=== PATIENT | male | born 1950 | race Caucasian/White ===

== ENCOUNTER → 2022-03-30 10:28 | Outpatient (CLI) | payer MEDICARE, SELFPAY ==
--- NOTE | ~2022-03-30 | XR_ITS ---
XR hip LT 2V w AP pelvis 03/30/2022 11:05 Indication: Left hip pain Procedure: 3 views left hip Comparison: 06/15/2017 Findings: There is mild osteoarthritis of the left hip. No fracture, subluxation or dislocation. Pelv ic rings are intact. Sacral foramen are symmetric. There are surgical changes of the pelvis. There is atherosclerosis in the pelvis. Impression: 1: Mild osteoarthritis of the left hip. Reviewed, dictated and finalized at location B. Impression: 1: Mild osteoarthritis of the left hip.
== END ==
PROVIDERS: PCP Family Medicine; Visit Provider Family Medicine
DX: M16.12 Unilateral primary osteoarthritis, left hip (principal)
CPT/HCPCS: 73502

== ENCOUNTER → 2022-12-29 11:18 | Outpatient (CLI) | payer MEDICARE, SELFPAY ==
--- NOTE | ~2022-12-29 | XR_ITS ---
XR knee RT 3V 12/29/2022 11:42 Indication: Right knee pain Procedure: 3 views right knee Comparison: 06/20/2011 Findings: There is a vascular graft overlying the femur. There are curvilinear calcifications posteri or to the femur overlying the graft, possibly representing a focal aneurysm. There is mild-moderate t ricompartment osteoarthritis. Normal mineralization. There is anatomic alignment. No acute fracture o r traumatic malalignment. No significant joint effusion. Impression: 1: No acute bone or joint abnormality. 2: Mild-moderate tricompartment osteoarthritis. 3: Vascular graft present overlying the distal femur posteriorly with possible associated vascular an eurysm surrounding the graft. Reviewed, dictated and finalized at location A. OR SUPPORT ANALYST Impression: 1: No acute bone or joint abnormality. 2: Mild-moderate tricompartment osteoarthritis. 3: Vascular graft present overlying the distal femur posteriorly with possible associated vascular aneurysm surrounding the graft.
--- NOTE | ~2022-12-29 | XR_ITS ---
XR hip RT 2V w AP pelvis 12/29/2022 11:42 Indication: Right hip pain Procedure: 3 views right hip Comparison: 03/30/2022 Findings: There is mild bilateral symmetric osteoarthritis of the hips. Pelvic rings are intact. Sacr al foramen are symmetric. No fracture or traumatic malalignment. There are vascular calcifications in the pelvis and proximal thigh. Impression: 1: Mild osteoarthritis of the hips. Reviewed, dictated and finalized at location A. NEERING LEADER Impression: 1: Mild osteoarthritis of the hips.
== END ==
PROVIDERS: PCP Family Medicine; Visit Provider Family Medicine
DX: M16.11 Unilateral primary osteoarthritis, right hip (principal); M17.11 Unilateral primary osteoarthritis, right knee
CPT/HCPCS: 73502; 73562

== ENCOUNTER 2024-03-10 10:34 | Emergency (ER) | payer MEDICARE, SELFPAY ==
[2024-03-10 10:41] VITALS: BP 157/60; PULSE 78; RESP 16; TEMP 36.3; O2SAT 100
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
== END 2024-03-10 11:41 | disposition home or self-care (01) ==
PROVIDERS: Emergency Provider Nurse Practitioner; PCP Family Medicine
DX: L98.9 Disorder of the skin and subcutaneous tissue, unspecified (principal); Z87.891 Personal history of nicotine dependence; J44.9 Chronic obstructive pulmonary disease, unspecified; I25.10 Atherosclerotic heart disease of native coronary artery without angina pectoris; Z95.1 Presence of aortocoronary bypass graft; Z79.82 Long term (current) use of aspirin; Z79.01 Long term (current) use of anticoagulants
CPT/HCPCS: 99211; G0463

== ENCOUNTER 2024-04-25 14:49 | Emergency (ER) | payer MEDICARE, SELFPAY ==
--- NOTE | 2024-04-25 14:56 | ED.HEATRA ---
HPI - Head Injury General Chief complaint: Wound/Laceration Stated complaint: Head Injury Time Seen by Provider: 04/25/24 14:54 Source: patient Mode of arrival: ambulatory Limitations: no limitations History of Present Illness HPI Narrative: Gume is a 73-year-old male patient presenting to the clinic today with complaints of hitting the left forehead/scalp on a cabinet and this caused a laceration to the forehead. He takes Xarelto 20 mg and a baby aspirin daily. States that this happened 11:00 a.m. today and he is not been able to get the bleeding to stop. Tetanus shot is up-to-date per patient Related Data Home Medications Medication Instructions Recorded Confirmed aspirin 81 mg tablet,delayed 81 mg PO DAILY 10/17/19 03/10/24 release (Josselin Low Dose Aspirin) cholecalciferol (vitamin D3) 125 5,000 unit PO DAILY 10/17/19 03/10/24 mcg (5,000 unit) capsule mesalamine 1.2 gram tablet,delayed 2.4 gm PO DAILY 10/17/19 03/10/24 release (Lialda) metoprolol succinate 25 mg 25 mg PO DAILY 10/17/19 03/10/24 tablet,extended release 24 hr (Toprol XL) multivitamin 1 tablet PO DAILY 10/17/19 03/10/24 rivaroxaban 20 mg tablet (Xarelto) 20 mg PO DAILY 10/17/19 03/10/24 nitroglycerin 0.4 mg sublingual 0.4 mg sublingual DIRECTED 09/17/23 03/10/24 tablet Allergies Allergy/AdvReac Type Severity Reaction Status Date / Time Penicillins Allergy Mild Unknown Verified 03/27/24 11:20 amoxicillin Allergy Unknown Nausea Verified 03/27/24 11:20 ciprofloxacin Allergy Unknown nausea, Verified 03/27/24 11:20 upset stomach cortisone Allergy Unknown n/a Verified 03/27/24 11:20 escitalopram Allergy Unknown Asthma Verified 03/27/24 11:20 gemfibrozil Allergy Unknown myalgias Verified 03/27/24 11:20 lactase Allergy Unknown Nausea Verified 03/27/24 11:20 lactose Allergy Unknown Nausea Verified 03/27/24 11:20 sildenafil Allergy Unknown Shock Verified 03/27/24 11:20 Review of Systems Review of Systems: Pertinent positives per HPI. Patient denies any fever, chills, rash, headache, visual changes, dizziness, cough, runny nose, sore throat, shortness of breath, chest pain, palpitations, nausea, vomiting, diarrhea, constipation, abdominal pain, or any urinary issues. PMFSH Past Medical History Medical History Anxiety Bundle branch block, right COPD (chronic obstructive pulmonary disease) Coronary artery disease Fistula Proctitis Squamous cell carcinoma lung Ulcerative colitis Surgical History Surgical History H/O heart bypass surgery History of colon surgery History of lobectomy of lung S/P pneumonectomy Family History Family History Father Asthma Mother Acute myocardial infarction Son Carcinoma of colon Other Family history of cardiovascular disease Social History Social History Smoking status: Former smoker Smoking end date: 11/12/04 Alcohol intake: never Lack of Transportation: No Lack of Food: Never True Current Housing: I Have Housing Concerned About Future Housing: No Difficulty Paying Gas/Electric Bills: No Difficulty Paying for Meds: No Currently Unemployed: No Education: Bachelor's Degree Difficulty w/ Childcare or Family Care: No Comments At the time of my signature, I reviewed and agree with the nursing past medical, surgical, social, and family history. There is no relevant family history pertinent to the patient complaint. Exam Narrative: General: Well-developed, well nourished, in no apparent distress Head: Normocephalic, atraumatic. Cardio: Regular rate and rhythm, s1 and s2 normal, no murmur appreciated. Resp: Clear to auscultation bilaterally, no rhonchi, rales, wheezing or rubs. Integumentary: Plainedge, warm,
[2024-04-25 15:03] VITALS: BP 110/54; PULSE 80; RESP 16; TEMP 37.2; O2SAT 99
[2024-04-25 15:05] VITALS: BP 110/54; PULSE 80; RESP 16; TEMP 37.2; O2SAT 99
== END 2024-04-25 15:29 | disposition home or self-care (01) ==
PROVIDERS: Emergency Provider Nurse Practitioner Family; PCP Family Medicine
DX: S01.81XA Laceration without foreign body of other part of head, initial encounter (principal); W22.8XXA Striking against or struck by other objects, initial encounter; Z87.891 Personal history of nicotine dependence; J44.9 Chronic obstructive pulmonary disease, unspecified; I25.10 Atherosclerotic heart disease of native coronary artery without angina pectoris; Z85.118 Personal history of other malignant neoplasm of bronchus and lung; Z90.2 Acquired absence of lung [part of]
CPT/HCPCS: 99212; G0463

== ENCOUNTER 2024-06-05 09:08 | Outpatient (CLI) | payer MEDICARE, SELFPAY ==
--- NOTE | ~2024-06-05 | CT_ITS ---
EXAMINATION: CT abdomen pelvis wo/w con DATE: 06/05/2024 10:23 INDICATION: Microscopic hematuria TECHNIQUE: Computed tomography (CT) of the abdomen and pelvis was performed without and subsequently with 130 CC Omnipaque 350 intravenous contrast. Automated exposure control and iterative reconstructi on technique were employed. Exam dose: 961.57 mGy-cm total exam DLP. COMPARISON: None. FINDINGS: The lung bases are clear of consolidation. Small right pleural effusion. Status post sternotomy. Cardiomegaly. No pericardial effusion. There are multiple stones in the dependent aspect of the gallbladder. No apparent gallbladder wall th ickening or any pericholecystic fluid or fat stranding. No hepatic, splenic, pancreatic or adrenal space-occupying mass lesion is detected. No adrenal mass lesion. No renal mass lesion is evident. No filling defect of the renal collecting systems or urinary bladder .. No renal or ureteral calculus is noted. There are however some calcifications at the dependent aspect of the gallbladder, the largest measuring 5.5 x 8.5 mm. There is diffuse moderate thickening of the urinary bladder wall which may be due to underdistention or bladder outlet obstruction from moderate prostatomegaly. Prostate calcification. There is calcification of the abdominal aorta but no aneurysm. Calcifications at the origins of the c eliac and superior mesenteric and renal arteries. No intraperitoneal or retroperitoneal or pelvic mas s lesion or adenopathy or ascites. No bowel obstruction or intraperitoneal free air. Degenerative changes of the thoracic and particularly lumbar spine. No suspicious osteolytic or osteo blastic lesions are noted. IMPRESSION: Multiple multiple bladder calculi No renal or ureteral calculus or hydroureteronephrosis No renal space occupying mass lesion Cholelithiasis Cardiomegaly Small right pleural effusion Status post sternotomy Reviewed, dictated and finalized at Location A. Reviewed, dictated and finalized at location J.
[2024-06-05 10:00] LABS: Estimated Glomerular Filt Rate 59
== END 2024-06-05 09:09 | disposition home or self-care (01) ==
PROVIDERS: PCP Family Medicine; Visit Provider Urology
DX: R31.29 Other microscopic hematuria (principal); N21.0 Calculus in bladder; K80.20 Calculus of gallbladder without cholecystitis without obstruction; I51.7 Cardiomegaly; J90 Pleural effusion, not elsewhere classified; Z98.890 Other specified postprocedural states
CPT/HCPCS: 74178; Q9967

== ENCOUNTER 2024-10-21 10:40 | Outpatient (CLI) | payer MEDICARE, SELFPAY ==
--- NOTE | ~2024-10-21 | XR_ITS ---
Left foot Technique: AP, oblique, and lateral views were obtained. Clinical History: Pain Findings: No acute fracture or dislocation is seen. Osseous alignment is anatomic. Joint spaces are p reserved without erosive or degenerative change. Soft tissues are unremarkable. Impression: Unremarkable left foot radiographs. Reviewed, dictated and finalized at location . 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
== END 2024-10-21 10:41 | disposition home or self-care (01) ==
LOC: GOSHIMG 10:40
PROVIDERS: PCP Family Medicine; Visit Provider Student in an Organized Health Care Education/Training Program
DX: M79.672 Pain in left foot (principal)
CPT/HCPCS: 73630

== ENCOUNTER 2024-12-02 11:04 | Outpatient (CLI) | payer MEDICARE, SELFPAY ==
[2024-12-02 11:19] LABS: Basophils Absolute Auto 0.1 K/mm3 (0.0-0.1); Basophils Percent Auto 1.5 % (0.2-1.2); Eosinophils Absolute Auto 0.4 K/mm3 (0-0.3); Hematocrit 43.9 % (42.0-52.0); Hemoglobin 14.4 g/dL (14.0-18.0); Immature Granulocyte Absolute 0.02 K/mm3 (0.00-0.031); Immature Granulocyte Percent A 0.3 % (0-0.5); Lymphocytes Absolute Auto 1.07 K/mm3 (0.9-3.2); Lymphocytes Percent Auto 17.5 % (18.3-44.2); Mean Corpuscular HGB Conc 32.8 g/dl (32-36); Mean Corpuscular Hemoglobin 31.2 pg (26-34); Mean Corpuscular Volume 95.2 fl (80-100); Mean Platelet Volume 11.7 fl (7.4-10.4); Monocytes Absolute Auto 0.8 K/mm3 (0.1-0.6); Monocytes Percent Auto 12.5 % (2.6-8.5); Neutrophils Absolute Auto 3.7 K/mm3 (1.3-6.7); Neutrophils Percent Auto 61.2 % (45.5-73.1); Platelet Count Result 152 k/mm3 (150-375); Red Blood Count 4.61 M/mm3 (4.6-6.20); Red Cell Distribution Width 14.3 % (11.5-14.5); White Blood Count 6.1 K/mm3 (4.5-10.0)
[2024-12-02 13:07] LABS: Alanine Aminotransferase 19 U/L (6-50); Albumin Level 4.3 g/dL (3.5-5.1); Alkaline Phosphatase 72 U/L (38-126); Anion Gap 8 mmol/L (4-12); Aspartate Amino Transferase 29 U/L (17-59); Bilirubin,Total 0.7 mg/dL (0.2-1.3); Blood Urea Nitrogen 16 mg/dL (9-20); Calcium 9.6 mg/dL (8.4-10.2); Carbon Dioxide 28 mmol/L (22-30); Chloride 104 mmol/L (98-107); Estimated Glomerular Filt Rate > 60; Glucose 106 mg/dL (65-110); Potassium 4.5 mmol/L (3.4-5.0); Sodium 140 mmol/L (137-145)
[2024-12-02 13:50] LABS: Prostate Specific Antigen 30.4 ng/mL (< OR = 4.0)
--- OUTSIDE RECORDS SUMMARY | 2024-12-04 17:40 | XMS_ITS | Encounter Summary ---
Author Organization [facility] IOANA Manzanares [facility] Address [address] [place] [address] Care Team Providers Care Gate Technician Name Role Phone Maykel Gramajo MD Primary Care Provider [phone]- [phone] Reason for Referral * Radiation Therapy (Routine) - Open Specialty Diagnoses / Procedures Referred By Contac t Referred To Contact Hematology and Oncology Diagnoses Prostate cancer (CMS/HCC) Procedures MD OFFICE/OUTPATIENT ESTABLISHED MOD MDM 30 MIN MD OFFICE/OUTPATIENT NEW MODERATE MDM 45 MINUTES Sandeep Zafar MD [address] [place] [address] Phone: tel: fax: [facility] - [place] [address] [place] [address] [address] [place] [address] Phone: tel: fax: Referral ID Status Reason Start Date Expiration Date V isits Requested Visits Authorized [id number] Open STL CTS 12/02/2024 12/02/2025 1 1 OLL SECRETARY * PET Scan (Routine) - Closed Specialty Diagnoses / Procedures Referred By Contac t Referred To Contact Diagnoses Prostate cancer (CMS/HCC) Procedures PET TUMOR GA68 ILLUCIX PSMA IMG W CT SKB MDTH CHG PET IMAGING CT ATTENUATION SKULL BASE MID-THIGH HCHG GALLIUM GA-68 GOZETOTIDE DX ILLUCCIX 1 MCI MD GALLIUM ILLUCCIX 1 MILLICURE Khai Walsh MD [address] [facility] [address] [place] [address] Phone: tel: fax: [facility] [phone] Referral ID Status Reason Start Date Expiration Date V isits Requested Visits Authorized [id number] Closed STL CTS 12/02/2024 01/02/2026 1 1 OLL SECRETARY Reason for Visit * Reason Comments Establish Care Cancer Encounter Details Date Type Department Care Team (Late st Contact Info) Description 12/02/2024 10:30 AM PAYROLL SECRETARY Office Visit [facility] [address] [facility] [address] [place] [address] Khai Walsh MD [address] [place] [address] Prostate cancer (CMS/HCC) (Primary Dx) Social History Tobacco Use Types Packs/Day Years Used Date Smoking Tobacco: Former Cigarettes 2 35 Q uit: 12/02/2004 Smokeless Tobacco: Never Alcohol Use Standard Drinks/Week Comments Never 0 (1 standard drink = 0.6 oz pur e alcohol) Sex and Gender Information Value Date Recorded Sex Assigned at Not on file Legal Sex Male 1:21 PM PAYROLL SECRETARY Gender Identity Not on file Sexual Orientation Not on file documented as of this encounter Last Filed Vital Signs Vital Sign Reading Time Taken Comments Blood Pressure 134/73 12/02/2024 10:06 AM PAYROLL SECRETARY Pulse 68 12/02/2024 10:06 AM PAYROLL SECRETARY Temperature 36.2 ??C (97.1 ??F) 12/02/2024 10:[address] Respiratory Rate 16 12/02/2024 10:06 AM PAYROLL SECRETARY Oxygen Saturation 97% 12/02/2024 10:06 AM PAYROLL SECRETARY Inhaled Oxygen Concentration - - Weight 79.8 kg (176 lb) 12/02/2024 10:06 AM PAYROLL SECRETARY Height 172.7 cm (5' 8 ) 12/02/2024 10:06 AM PAYROLL SECRETARY Body Mass Index 26.76 12/02/2024 10:06 AM PAYROLL SECRETARY documented in this encounter Progress Notes * Khai Walsh MD - 12/02/2024 12:20 PM CST Hematology-oncology consult Note Requesting Physician Maykel Gramajo MD Primary Care Physician Maykel Gramajo MD Problem list There is no problem list on file for this patient. Previous TREATMENT ? Measurable Disease ? Reason for Visit Gume Roberson is a 74 y.o. male who was referred for consultation for prostate cancer. 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 Patient also has a history of coronary artery disease status post coronary artery bypass grafting in 2004. He noticed hematuria and was seen by the urologist. His original PSA was found to be 9 and prostate biopsy was performed on October 20, 2024 that 9 of 15 cores with Raul score 3+4 equal 7 adenocarcinoma. MRI pelvis showed no evidence of lymphadenopathy. He has been followed by Dr. Barnes. He denies any bone pain. Denies any weight loss. No other new complaints. Past Medical History Past Medical History: Diagnosis Date Diverticulosis of colon Heart disease History of blood clots Hypertension Malignant neoplasm Proctitis Stenosis, spinal, lumbar Surgical History Past Surgical History: Procedure Laterality Date HX COLONOSCOPY 10/16/2024 HX COLONOSCOPY [place] 2006 HX HEART SURGERY bypass, clear blockage [facility] 2004 HX LOBECTOMY cancer [place] 2023 Medications Current Outpatient Medications Medication Sig Dispense Refill mesalamine (LIALDA) 1.2 gram Tablet, Delayed Release (E.C.) Take 3.6 Grams by mouth daily. metoprolol succinate (TOPROL XL) 25 mg Extended Release 24 hour tablet Take 25 mg by mouth daily. Xarelto 10 mg Tablet Take 10 mg by mouth daily. ALPRAZolam (XANAX) 0.25 mg tablet Take 0.25 mg by mouth nightly as needed for Anxiety. cholecalciferol, vitamin D3, 5,000 unit Take 400 Units by mouth daily. fenofibrate (LOFIBRA) 160 mg Tablet Take 160 mg by mouth daily. pregabalin (LYRICA) 100 mg Capsule Take 100 mg by mouth daily at bedtime. simvastatin (ZOCOR) 20 mg tablet Take 20 mg by mouth daily with supper. multivitamin (DAILY-WILLIAM) tablet Take 1 Tablet by mouth daily. aspirin (ECOTRIN EC) 81 mg Tablet, Delayed Release (E.C.) Take 81 mg by mouth daily. No current facility-administered medications for this visit. Allergies Allergies Allergen Reactions Lactose Nausea and Vomiting and Other (See Comments) Upset stomach Immunizations: There is no immunization history on file for this patient. Family History Family History Problem Relation Name Age of Onset Prostate Cancer Father Heart Disease Father Pancreatic Cancer Mother Heart Disease Mother No Known Problems Sister No Known Problems Sister Colon Cancer Child 48 No Known Problems Child 46 No Known Problems Child 42 Social History Social History Tobacco Use Smoking status: Former Current packs/day: 0.00 Average packs/day: 2.0 packs/day for 35.0 years (70.0 ttl pk-yrs) Types: Cigarettes Quit date: 12/02/2004 Years since quittin.0 Smokeless tobacco: Never Substance Use Topics Alcohol use: Never Review of Systems Constitutional: Patient did not mention fever; no night sweats; no anorexia; no weight loss; no fatique NEENT: Patient did not mention headache; no change in vision; no change in hearing; no sore throat;no dysphagia Respiratory: Patient did not mention shortness of breath; no pleuritic chest pain; no cough; no hemoptysis Cardiac: Patient did not mention cardiac-like chest pain; no palpitations; no orthopnea; no PND; noDOE GI: Patient did not mention abdominal pain; no nausea; no vomiting; no diarrhea; no hematochezia; no melena : Patient did not mention dysuria; no frequency; no hesitancy; no hematuria NURSERY SUPERVISOR: Musculosketetal: Patient did not mention bone pain; no arthralgia; no joint swelling; no myalgia; Skin: Patient did not mention pruritis; no rash; no petechiae; no ecchymoses Endocrine: Patient did not mention polydipsia; no polyuria; no unusual weight gain Neuro: Patient did not mention headache; no change in vision; no sensory changes; no muscle weakness; no confusion; no seizures Psych: Patient did not mention anxiety; no depression; Physical Exam Vitals: As per nursing note Constitutional: Well developed, well nourished, no acute distress, non-toxic appearance Teeth and gum. No signs of infection or swelling. Eyes: PERRL, conjunctiva normal HEENT: Atraumatic, external ears normal, nose normal, oropharynx moist, no pharyngeal exudates. no sinus tenderness Neck- normal range of motion, no tenderness, supple Respiratory: No respiratory distress, normal breath sounds, no rales, no wheezing Cardiovascular: Normal rate, normal rhythm, no murmurs, no gallops, no rubs GI: Soft, nondistended, normal bowel sounds, nontender, no splenomegaly, no hepatomegaly, no mass, no rebound, no guarding : No costovertebral angle tenderness Musculoskeletal: No edema, no tenderness, no deformities. Back- no tenderness Integument: Well hydrated, no rash, Digits and nails inspection normal Lymphatic: No lymphadenopathy noted Neurologic: Alert & oriented x 3, CN 2-12 normal, normal motor function, normal sensory function, no focal deficits noted Psychiatric: Speech and behavior appropriate ? labs No results found for this or any previous visit (from the past 24 hours). Pathology ? Imaging & Other Studies Performance Status? Assessment / Plan: ? Adenocarcinoma of prostate. Unfavorable intermediate risk group. Grade 2 with presenting PSA of 9. Follow-up patient is a pleasant 74-year-old male with a stage I lung cancer status post right middle lobe lobectomy and right upper lobe wedge resection on March 14, 2024. He also has history of coronary artery disease status post coronary artery bypass grafting in 2004. Patient developed hematuria and found to have a PSA of 9. He underwent prostate biopsy on October 20, 2024 that showed 9 of 15 cores with Raul score 3+7 equal 7 adenocarcinoma. He was seen by Dr. Barnes. Treatment options were discussed and patient decided to have radiation therapy treatment. I will order PET PSMA a s well as labs including CBC, CMP, PSA and total and free testosterone level. I would also recommend androgen deprivation therapy for 6 months duration with radiation therapy treatment. I would suggest Lupron injection on a monthly basis along with Casodex concurrent with radiation therapy. I will see him back in 2 weeks after radiation oncology consultation and the PET scan. I have answered all the questions to patient satisfaction. T1 cN0 M0 stage IA squamous cell carcinoma of the lung status post right middle lobe lobectomy and right upper lobe wedge on March 14, 2024. He will continue to follow-up with Dr. Jeremy Stoll. Thank you very much for allowing me to participate in Gume Roberson's evaluation and management. Please feel free to contact if I can be of any further assistance in your patient???s care requiring hematology or oncology evaluation. Sincerely, ? ? Khai Walsh M.D. cell TOBACCO COUNSELING He is not a tobacco/nicotine user. Khai Walsh MD ,12/02/2024 12:22 PM ? Total time spent 60 minutes, two third of the total time spent counseling patient [id number]. CC:?Maykel Gramajo MD OLL SECRETARY documented in this encounter Plan of Treatment Upcoming Encounters Date Type Department Care Team (Late st Contact Info) Description 12/23/2024 1:00 PM PAYROLL SECRETARY Office Visit [facility] H[facility] [address] [facility] [address] [place] [address] Khai Walsh MD [address] [facility] [facility] [address] [place] [address] Scheduled Orders Name Type Priority Associated Diagnoses Orde r Schedule PET TUMOR GA68 ILLUCIX PSMA IMG W CT SKB MDTH Imaging Routine Prostate cancer (CMS/HCC) 1 Occurrences starting 12/02/2024 until 12/02/2025 CBC WITH DIFFERENTIAL Lab Stat Prostate cancer (CMS/HCC) Expected: 12/02/2024, Expires: 12/02/2025 COMPREHENSIVE METABOLIC PANEL Lab Stat Prostate cancer (CMS/HCC) Expected: 12/02/2024, Expires: 12/02/2025 PSA Lab Routine Prostate cancer (CMS/HCC) Expected: 12/02/2024, Expires: 12/02/2025 TESTOSTERONE FREE AND TOTAL Lab Routine Prostate cancer (CMS/HCC) Expected: 12/02/2024, Expires: 12/02/2025 Scheduled Referrals Name Type Priority Associated Diagnoses Orde r Schedule AMB REFERRAL TO RADIATION ONCOLOGY Outpatient Referral Routine Prostate cancer (CMS/HCC) Ordered: 12/02/2024 documented as of this encounter Visit Diagnoses Diagnosis Prostate cancer (CMS/HCC)- Primary Malignant neoplasm of prostate documented in this encounter Care Teams Gate Technician Relationship Specialty Start Date End Date Maykel Gramajo MD [address] [address] PCP - General Family Practice 12/02/24 documented as of this encounter
--- OUTSIDE RECORDS SUMMARY | 2024-12-04 17:40 | XMS_ITS | Referral Summary ---
Author Organization [facility] [email or web address] Address [address] [place] [address] Care Team Providers Care Dampener Operator Name Role Phone Maykel Gramajo MD Primary Care Provider [phone]- [phone] Source Comments [email or web address],non-owned Affiliates and Associated Physician Practices is amultiple site organization consisting of ambulatory clinics and hospital sitesin [place], [place], [place] and [place]. This disclosure is being madepursuant to the Care Everywhere program and may not contain all information available regarding this patient. Last updated 18.[email or web address] Allergies Active Allergy Reactions Criticality Noted Date Comments Lactose GI Discomfort Low 03/25/2015 Upset stomach Medications * Be aware that medications may not be up to date on this document. Alwaysverify current medications with the patient. Medication Sig Dispensed Refills Start Date End Date Status PROAIR HFA 108 (90 Base) MCG/ACT inhaler INHALE 2 PUFFS BY MOUTH EVERY 4 HOURS NEEDED FOR SHORTNESS OF BREATH OR WHEEZING 11/25/2019 Active ALPRAZolam (XANAX) 0.25 MG tablet TAKE 1 T PO TID NEEDED FOR ANXIETY 06/28/2020 Active fenofibrate (LOFIBRA) 160 MG tablet 06/20/2020 Active mesalamine EC (LIALDA) 1.2 g tablet 08/01/2020 Act jeff metoprolol succinate XL 24hr (TOPROL XL) 25 MG tablet 06/21/2020 Active pregabalin (LYRICA) 100 MG capsule 07/12/2020 Active XARELTO 20 MG tablet 06/27/2020 Acti ve simvastatin (ZOCOR) 20 MG tablet 06/20/2020 Active triamcinolone acetonide (KENALOG) 0.1 % cream ESTEVAN EXT AA BID 06/21/2020 Active aspirin EC (ECOTRIN) 81 MG tablet Take 81 mg by mouth once daily Active cephalexin (KEFLEX) 500 MG capsule TAKE 1 CAPSULE BY MOUTH EVERY 12 HOURS FOR 7 DAYS 03/29/2021 Active predniSONE (DELTASONE) 10 MG tablet 04/20/2021 Active metoprolol succinate XL 24hr (TOPROL XL) 25 MG tablet TAKE 1 TABLET BY MOUTH DAILY 06/09/2021 Active Active Problems Problem Noted Date Diagnosed Date Claudication 05/25/2020 Overview (01/24/2021): Added automatically from request for surgery [id number] Chronic rhinitis 08/21/2019 History of epistaxis 08/21/2019 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 Unfortunately, he had an effective distal endoleak, and his stenting was extended into his popliteal artery on 12/31/19. 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 - S/p 06/11 right SFA angiogram; failed recanalization - Continue asa - Restart xarelto tomorrow - Flat x 4 hours post op then Up as tolerated - ADAT - Admit overnight /2 no ride - Plan for left leg bypass at some point in the future Coronary artery disease invo lving [place] coronary artery of [place] heart without angina pectoris 03/28/2018 Overview (01/24/2021): Last Assessment & Plan: No symptoms of myocardial ischemia, albeit with limited physical exertion because of his peripheral vascular disease. Continue aspirin and metoprolol. Cardiac catheterization on 02/16/2017 was favorable after a false-positive surveillance myocardial perfusion study. Based on this would not plan to do surveillance testing, but if he were to be facing any major vascular or other surgery or experiencing any cardiac symptoms would evaluate. Hyperlipidemia 03/28/2018 Overview (01/24/2021): Last Assessment & Plan: He is on chronic lipid-lowering therapy. No recent testing in the setting of the COVID -19 pandemic. 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 Chronic ulcerative pancolitis 04/20/2011 Social History Tobacco Use Types Packs/Day Years Used Date Smoking Tobacco: Former Cigarettes Q uit: 2004 Smokeless Tobacco: Never Alcohol Use Standard Drinks/Week Comments Not Currently 0 (1 standard drink = 0.6 oz pur e alcohol) Sex and Gender Information Value Date Recorded Sex Assigned at Not on file Gender Identity Not on file Sexual Orientation Not on file Last Filed Vital Signs Vital Sign Reading Time Taken Comments Blood Pressure 139/75 05/18/2021 3:03 PM CDT Pulse 74 05/18/2021 3:03 PM CDT Temperature 36.5 ??C (97.7 ??F) 05/18/2021 2:48 PM CD T Respiratory Rate 18 05/18/2021 3:03 PM CDT Oxygen Saturation 99% 05/18/2021 3:03 PM CDT Inhaled Oxygen Concentration - - Weight 88.5 kg (195 lb) 05/12/2021 2:14 PM CDT Height 175.3 cm (5' 9 ) 05/12/2021 2:14 PM CDT Body Mass Index 28.8 05/12/2021 2:14 PM CDT Functional Status Functional Status Response Date of Assess ment Is person deaf or have serious hearing difficult y? No 05/18/2021 Is person blind or have serious difficulty seein g? No 05/18/2021 Does person have serious dif ficulty walking/climbing stairs? No 05/18/2021 Does person have difficulty dressing/bathing? No 05/18/2021 Does person have difficulty doing errands alone? No 05/18/2021 Cognitive Status Response Date of Assessm ent Does person have difficulty concentrating/remembering/making decisions? No 05/18/2021 Plan of Treatment Not on file Medical Devices Implanted Type Area Diet Aid Device Identifier Shelf Expiration Date Model / Serial / Lot Lens Iol 0 D +22.5 Ovidio Mod L Acrsf Iq - [id number] Implanted:Qty: 1 on 02/23/2021 by Hernan Hansen MD at [facility] Right: [employer] 06/21/2023 [id number] / [id number] / Lens Iol 0 D +28.0 Ovidio Mod L Acrsf Iq - [id number] Implanted:Qty: 1 on 05/18/2021 by Hernan Hansen MD at [facility] Left: [employer] 11/22/2023 [id number] / [id number] / Care Teams Dampener Operator Relationship Specialty Start Date End Date Maykel Gramajo MD [address] [place] [address], [place] [id number] PCP - General 07/28/20
--- OUTSIDE RECORDS SUMMARY | 2024-12-04 17:40 | XMS_ITS | Clinical Summary ---
Author Organization [facility] Address [address] [place] [address] Care Team Providers Care Vp Organizational Development Name Role Phone Maykel Gramajo MD Primary Care Provider [phone]- [phone] Source Comments [facility],non-owned Affiliates and Associated Physician Practices is amultiple site organization consisting of ambulatory clinics and hospital sitesin [place], [place], [place] and [place]. This disclosure is being madepursuant to the Care Everywhere program and may not contain all information available regarding this patient. 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 Overview (01/24/2021): Added automatically from request for surgery [id number] Added automatically from request for surgery [id number] Last Assessment & Plan: - S/p status post self-expanding??covered stent ([place] Viabahn??9 x 150 mm) placement to exclude [...] the future Coronary artery disease invo lving tel[place] coronary artery of [place] heart without angina pectoris 03/28/2018 Overview (01/24/2021): [...] film insufficiency 06/27/2013 Chronic ulcerative pancolitis 04/20/2011 Family History Medical History Relation Name Comments Glaucoma Neg Hx Macular Degeneration Neg Hx Social History Tobacco Use Types Packs/Day Years [...] Mass Index 28.8 05/12/2021 2:14 PM CDT Plan of Treatment Health Maintenance Due Date Last Done Comments COLOGUARD (AGES 45-75) - COL ON CA SCREENING 1950 COLON MONITORING 1950 COLONOSCOPY - COLON CA SCREENING 1950 CT COLONOGRAPHY - COLON CA SCREENING 1950 Colorectal Cancer Screening 1950 FIT - COLON CA SCREENING 1950 FLEX SIG - COLON CA SCREENING 1950 MEDICARE AWV ? 12 MONTHS 1950 HEPATITIS C SCREENING 05/08/1968 DTAP/TDAP/TD VACCINES (1 - Tdap) 1969 PNEUMOCOCCAL VACCINE 50+ (1 of 1 - PCV) 2000 ZOSTER VACCINE (1 of 2) 2000 AAA SCREENING 2015 COVID-19 VACCINE (1 - 2023-2 5 season) 2024 INFLUENZA VACCINE (#1) 2024 9, 08/16/2018 DEPRESSION SCREENING 11/12/2024 Respiratory Syncytial Virus (RSV) Vaccine Pt: or over 60 yrs (1 - 1-dose 75+ series) 2025 HEPATITIS B VACCINE Aged Out No longe r eligible based on patient's age to complete this topic HIB VACCINE Aged Out No longer eligi ble based on patient's age to complete this topic HPV VACCINE Aged Out No longer eligi ble based on patient's age to complete this topic MENINGOCOCCAL (Group B) VACCINE Aged Out No longer eligible b ased on patient's age to complete this topic MENINGOCOCCAL VACCINE Aged Out No pablo shirin eligible based on patient's age to complete this topic Medical Devices Implanted Type Area Music Department Chair Device Identifier Shelf Expiration Date Model / Serial / Lot Lens Iol 0 D +22.5 Ovidio Mod L Acrsf Iq - [id number] Implanted:Qty: 1 on 02/23/2021 by Hernan Hansen MD at [facility] Right: [employer] 06/21/2023 [id number] / [id number] / Lens Iol 0 D +28.0 Ovidio Mod L Acrsf Iq - [id number] Implanted:Qty: 1 on 05/18/2021 by Hernan Hansen MD at [facility] Left: [employer] 11/22/2023 [id number] / [id number] / Care Teams Vp Organizational Development Relationship Specialty Start Date End Date Maykel Gramajo MD [facility] [place] [address] PCP - General 07/28/20
--- OUTSIDE RECORDS SUMMARY | 2024-12-04 17:40 | XMS_ITS | Clinical Summary ---
Author Organization [facility] Uriel Mar Address [address] [place] [address] Care Team Providers Care Certified Personal Trainer Name Role Phone Maykel Gramajo MD Primary Care Provider [phone]- [phone] Allergies Active Allergy Reactions Criticality Noted Date Comments Lactose Nausea and Vomiting, Other (See Comments) Low 03/25/2015 Upset stomach Medications aspirin (ECOTRIN EC) 81 mg Tablet, Delayed Release (E.C.) Take 81 mg by mouth daily. Active mesalamine (LIALDA) 1.2 gram Tablet, Delayed Release (E.C.) Take 3.6 Grams by mouth daily. 11/24/2024 Active metoprolol succinate (TOPROL XL) 25 mg Extended Release 24 hour tablet Take 25 mg by mouth daily. 09/01/2024 Active Xarelto 10 mg Tablet Take 10 mg by mouth daily. 07/21/2024 Active ALPRAZolam (XANAX) 0.25 mg tablet Take 0.25 mg by mouth nightly as needed for Anxiety. Active cholecalciferol , vitamin D3, 5,000 unit Take 400 Units by mouth daily. Active fenofibrate (LOFIBRA) 160 mg Tablet Take 160 mg by mouth daily. Active pregabalin (LYRICA) 100 mg Capsule Take 100 mg by mouth daily at bedtime. Active simvastatin (ZOCOR) 20 mg tablet Take 20 mg by mouth daily with supper. Active multivitamin (DAILY-WILLIAM) tablet Take 1 Tablet by mouth daily. Active Active Problems No known active problems Encounters Date Type Department Care Team Description 12/03/2024 Orders Only [facility] - [address] [place] [phone] Khai Walsh MD 12/02/2024 10:30 AM COMMERCIAL PEST CONTROL REPRESENTATIVE Office Visit [facility] [address] [place] [address] Khai Walsh MD Prostate cancer (CMS/HCC) (Primary Dx) from Last 3 Months Family History Medical History Relation Name Comments Colon Cancer Child 1 48 No Known Problems Child 2 46 No Known Problems Child 3 42 Heart Disease Father Prostate Cancer Father Heart Disease Mother Pancreatic Cancer Mother No Known Problems Sister 1 No Known Problems Sister 2 Relation Name Status Comments Child 1 48 Alive Child 2 46 Alive Child 3 42 Alive Father Mother Sister 1 Alive Sister 2 Alive Social History Tobacco Use Types Packs/Day Years Used Date Smoking Tobacco: Former Cigarettes 2 35 Q uit: 12/02/2004 Smokeless Tobacco: Never Alcohol Use Standard Drinks/Week Comments Never 0 (1 standard drink = 0.6 oz pur e alcohol) Sex and Gender Information Value Date Recorded Sex Assigned at Not on file Legal Sex Male 1:21 PM COMMERCIAL PEST CONTROL REPRESENTATIVE Gender Identity Not on file Sexual Orientation Not on file Last Filed Vital Signs Vital Sign Reading Time Taken Comments Blood Pressure 134/73 12/02/2024 10:06 AM COMMERCIAL PEST CONTROL REPRESENTATIVE Pulse 68 12/02/2024 10:06 AM COMMERCIAL PEST CONTROL REPRESENTATIVE Temperature 36.2 ??C (97.1 ??F) 12/02/2024 10:[address] Respiratory Rate 16 12/02/2024 10:06 AM COMMERCIAL PEST CONTROL REPRESENTATIVE Oxygen Saturation 97% 12/02/2024 10:06 AM COMMERCIAL PEST CONTROL REPRESENTATIVE Inhaled Oxygen Concentration - - Weight 79.8 kg (176 lb) 12/02/2024 10:06 AM COMMERCIAL PEST CONTROL REPRESENTATIVE Height 172.7 cm (5' 8 ) 12/02/2024 10:06 AM COMMERCIAL PEST CONTROL REPRESENTATIVE Body Mass Index 26.76 12/02/2024 10:06 AM COMMERCIAL PEST CONTROL REPRESENTATIVE Plan of Treatment Upcoming Encounters Date Type Department Care Team (Late st Contact Info) Description 12/23/2024 1:00 PM COMMERCIAL PEST CONTROL REPRESENTATIVE Office Visit [facility] [address] [place] [phone] Khai Walsh MD [address] [facility] [address] [place] [address] Health Maintenance Due Date Last Done Comments Traditional Medicare (ACO) A nnual Wellness Visit 1969 FIT-DNA Q 3 years 1995 FIT/FOBT Q 1 year 1995 Flex Sig/CT Colonography Q 5 years 1995 PNEUMOCOCCAL VACCINE 65+ YEA RS (1 of 1 - PCV) 2000 ZOSTER VACCINE (1 of 2) 2000 Abdominal Aortic Aneurysm (A AA) Screening 2015 INFLUENZA VACCINE (#1) 2024 3, 08/17/2022, 08/16/2018 RSV VACCINE (60+ or ) (1 - 1-dose 75+ series) 2025 DTAP/TDAP/TD VACCINES (2 - T d or Tdap) 03/26/2033 03/26/2023 COLORECTAL SCREENING 10/16/2034 10/16/2024, 10/16/20 24 Colorectal Cancer Screening 10/16/2034 Procedures Procedure Name Priority Date/Time Associated Diagnosis Comments COMPREHENSIVE METABOLIC PANEL Routine 12/02/2024 3:30 PM COMMERCIAL PEST CONTROL REPRESENTATIVE from Last 3 Months Results * COMPREHENSIVE METABOLIC PANEL (12/02/2024 3:30 PM COMMERCIAL PEST CONTROL REPRESENTATIVE) Blood Khai Walsh MD CHEMISTRY ORDERABLES Final Resu lt from Last 3 Months Insurance MEDICARE PART A AND B [facility] [id number] Care Teams Certified Personal Trainer Relationship Specialty Start Date End Date Maykel Gramajo MD [address] [place] [phone] PCP - General Family Practice 12/02/24
--- OUTSIDE RECORDS SUMMARY | 2024-12-04 17:40 | XMS_ITS | Continuity of Care Document ---
Author Organization [facility] Address [address] [place] [address] Phone Care Team Providers Care Edger Feeder Name Role Phone Denis Cash Unavailable Unavailable Procedures Procedure Date Eye Exam & Treatment Refraction Advance Directives Directive Yes / No Effective Date File Name No Information Encounters Encounter Description Practice Location Reason(s) For Visit Diagnoses Date Provider Providers Copied on Encounter Merged with [facility], [address], [place], [place], [id number], [place] tel:[phone] [facility] No Information 0 Shailesh Barrios. [address] [facility] [address], [address], [place]. tel:[phone] Family History Family Member Type Diagnosis Age At Onset No Information Payers Payer name Insurance type Covered constitution party ID Authoriza titerell(s) [facility] Commercial CI [id number] Social History Type Description Quantity Date Captured [...]
--- OUTSIDE RECORDS SUMMARY | 2024-12-04 17:40 | XMS_ITS | Patient Health Summary ---
Author Organization [facility] Address [address] [place] [address] Care Team Providers Care Performance Consultant Name Role Phone Maykel Gramajo MD Primary Care Provider [phone]- [phone] Note from [facility],non-owned Affiliates and Associated Physician Practices is amultiple site organization consisting of ambulatory clinics and hospital sitesin [place], [place], [place] and [place]. This disclosure is being madepursuant to the Care Everywhere program and may not contain all information available regarding this patient. Last updated 18.[facility] Allergies * Lactose(GI Discomfort) -Low Criticality Medications * Be aware that medications may not be up to date on this document. Alwaysverify current medications with the patient. * PROAIR HFA 108 (90 Base) MCG/ACT inhaler(Started 11/25/2019) INHALE 2 PUFFS BY MOUTH EVERY 4 HOURS NEEDED FOR SHORTNESS OF BREATH OR WHEEZING * ALPRAZolam (XANAX) 0.25 MG tablet(Started 06/28/2020) TAKE 1 T PO TID NEEDED FOR ANXIETY * fenofibrate (LOFIBRA) 160 MG tablet(Started 06/20/2020) * mesalamine EC (LIALDA) 1.2 g tablet(Started 08/01/2020) * metoprolol succinate XL 24hr (TOPROL XL) 25 MG tablet(Started 06/21/2020) * pregabalin (LYRICA) 100 MG capsule(Started 07/12/2020) * XARELTO 20 MG tablet(Started 06/27/2020) * simvastatin (ZOCOR) 20 MG tablet(Started 06/20/2020) * triamcinolone acetonide (KENALOG) 0.1 % cream(Started 06/21/2020) ESTEVAN EXT AA BID * aspirin EC (ECOTRIN) 81 MG tablet Take 81 mg by mouth once daily * cephalexin (KEFLEX) 500 MG capsule(Started 03/29/2021) TAKE 1 CAPSULE BY MOUTH EVERY 12 HOURS FOR 7 DAYS * predniSONE (DELTASONE) 10 MG tablet(Started 04/20/2021) * metoprolol succinate XL 24hr (TOPROL XL) 25 MG tablet(Started 06/09/2021) TAKE 1 TABLET BY MOUTH DAILY Active Problems Problem Noted Date Diagnosed Date Claudication 05/25/2020 Chronic rhinitis 08/21/2019 History of epistaxis 08/21/2019 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 artery disease invo lving [place] coronary artery of [place] heart without angina pectoris 03/28/2018 Hyperlipidemia 03/28/2018 Amblyopia 06/27/2013 Senile nuclear sclerosis 06/27/2013 Tear [...] Mass Index 28.8 05/12/2021 2:14 PM CDT Medical Devices Implanted Type Area Aircraft Servicer Device Identifier Shelf Expiration Date Model / Serial / Lot Lens Iol 0 D +22.5 Ovidio Mod L Acrsf Iq - [id number] Implanted:Qty: 1 on 02/23/2021 by Hernan Hansen MD at [facility] Right: Eye [employer] 06/21/2023 [id number] / [id number] / Lens Iol 0 D +28.0 Ovidio Mod L Acrsf Iq - [id number] Implanted:Qty: 1 on 05/18/2021 by Hernan Hansen MD at [facility] Left: Eye [employer] 11/22/2023 [id number] / [id number] / Procedures * EXTRACTION CATARACT WITH INSERTION LENS(Performed 05/18/2021) Performed for Nuclear senile cataract, unspecified laterality * EXTRACTION CATARACT WITH INSERTION LENS(Performed 02/23/2021) Performed for Nuclear senile cataract of both eyes * OPH IOL TEST SLU(Performed 09/10/2020) Performed for Nuclear senile cataract of both eyes * OPH EYE ULTRASOUND SLU(Performed 09/10/2020) Performed for Nuclear senile cataract of both eyes * HEMOGLOBIN A1C(Performed 08/22/2018) * LIPID PROFILE(Performed 08/22/2018) * GLUCOSE VITALITY(Performed 08/22/2018) * HEMOGLOBIN A1C(Performed 08/16/2017) * VITALITY SCREEN (BEAKER)(Performed 08/16/2017) * LIPID PROFILE(Performed 08/16/2017) * GLUCOSE VITALITY(Performed 08/16/2017) * VITALITY SCREEN (BEAKER)(Performed 08/25/2016) * LIPID PROFILE(Performed 08/25/2016) * HEMOGLOBIN A1C(Performed 08/25/2016) * GLUCOSE VITALITY(Performed 08/25/2016) * HEMOGLOBIN A1C(Performed 08/17/2015) * VITALITY SCREEN (BEAKER)(Performed 08/17/2015) * LIPID PROFILE(Performed 08/17/2015) * GLUCOSE VITALITY(Performed 08/17/2015) * HEMOGLOBIN A1C(Performed 10/03/2014) * VITALITY SCREEN (BEAKER)(Performed 10/03/2014) * LIPID PROFILE(Performed 10/03/2014) * GLUCOSE VITALITY(Performed 10/03/2014) * [facility](Performed 08/30/2013) * GLUCOSE VITALITY(Performed 08/30/2013) * GLUCOSE(Performed 08/24/2012) * CHOLESTEROL BLOOD(Performed 08/24/2012) Results * IOL Master (Lenstar) (09/10/2020 10:01 AM CDT) Anatomical Region Laterality Modality Other 09/10/2020 10:0 1 AM CDT Hernan Hansen MD OPHTHALMOLOGY SERVIC ES ORDERABLES * Ultrasound (09/10/2020 12:00 AM CDT) Anatomical Region Laterality Modality Other 09/10/2020 Maricruz Florentino MD OPHTHALMOLOGY SERVIC ES ORDERABLES * GLUCOSE VITALITY (08/22/2018 7:20 AM CDT) Only the most recent of6 resultswithin the time period is included. Glucose 101 70 - 115 mg/dL 08/22/2018 10:23 AM CDT [facility] Blood BLOOD SPECIMEN / Unknown Lab Venipuncture / Unknown 08/22/2018 7:20 AM CDT 08/22/2018 9:54 AM CDT Ordering Provider Unlisted LAB - CHEM ISTRY ORDERABLES [address] [phone] * HEMOGLOBIN A1C (08/22/2018 7:20 AM CDT) Only the most recent of5 resultswithin the time period is included. Hemoglobin A1c 5.8 4.4 - 6.3 % 08/22/2018 11:58 AM CDT [facility] Estimated Average Glucose 120 mg/dL 08/22/2018 11:58 AM CDT [facility] Comment: HbA1c Interpretation: Treatment target values recommended by ADA and other clinical organizations should be used to evaluate metabolic control in patients. Treatment Target Values: Normal : < 5.7% Pre-diabetes: 5.7-6.4% Diabetes: Equal to or greater than 6.5% Reference: [place] Diabetes Association Standards of Care in Diabetes -2014 In patients 70 years and older consider HbA1c target range of 7.0-7.5% Reference: ??Diabetes Mellitus in Older People: Position Statement on behalf of the International Association of Gerontology and Geriatrics (IAGG), the Diabetes Working Libertarian for Older People (EDWPOP), and the International Task Force of Experts in Diabetes. ??Pj Brandon, et al. J [place] Medical [employer] Association. 2012 Test results diagnostic of diabetes should be repeated for confirmation. The Tosoh G8 assay for the measurement of HbA1c is a National Glycohemoglobin Standardization Program (NGSP)certified method. Results for patients with HbE disease should be interpreted with caution as this hemoglobinopathy has been shown to interfere with the Tosoh G8 assay. Blood BLOOD SPECIMEN / Unknown Lab Venipuncture / Unknown 08/22/2018 7:20 AM CDT 08/22/2018 9:54 AM CDT Ordering Provider Unlisted MD LAB - CHEM ISTRY ORDERABLES Performing Organization Address City/State/[facility] Co de Phone Number [address] [phone] * (ABNORMAL) LIPID PROFILE (08/22/2018 7:20 AM CDT) Only the most recent of5 resultswithin the time period is included. Cholesterol Total 93 <200 mg/dL 08/22/2018 10:49 AM T [facility] HDL 32(L) >40 mg/dL 08/22/2018 10:49 AM [facility] Comment: ATP III Classification of HDL Cholesterol: ? <40 mg/dL: ??Considered a major risk factor. ? >60 mg/dL: ??Considered a negative risk factor. ? LDL Calculated 36 <100 mg/dL 08/22/2018 10:49 AM T [facility] Comment: ATP III Classification of LDL Cholesterol: ?<100 mg/dL: ??Optimal ? 100 - 129 mg/dL: ??Near Optimal/Above Optimal ? 130 - 159 mg/dL: ??Borderline High ? 160 - 189 mg/dL: ??High ?>190 mg/dL: ??Very High ? Triglycerides 125 <150 mg/dL 08/22/2018 10:49 AM CDT [facility] Comment: ATP III Classification of Triglycerides: ?<150 mg/dL: ??Normal ? 150 - 199 mg/dL: ??Borderline High ? 200 - 400 mg/dL: ??High ?>500 mg/dL: ??Very High Blood BLOOD SPECIMEN / Unknown Lab Venipuncture / Unknown 08/22/2018 7:20 AM CDT 08/22/2018 9:54 AM CDT Ordering Provider Unlisted LAB - CHEM ISTRY ORDERABLES Performing Organization Address City/State/[facility] Co de Phone Number [address] [phone] * VITALITY SCREEN (BEAKER) (08/16/2017 7:28 AM CDT) Only the most recent of4 resultswithin the time period is included. Blood specimen (specimen) BLOOD SPECIMEN / Unknown 08/16/2017 7:28 AM CDT Narrative [facility] - 08/16/2017 12:49 PM CDT The following orders were created for panel order [facility] Vitality Screening. Procedure ? Abnormality ? Status ? --------- ? ------ ? Hemoglobin A1c[[id number]] ?Final result ? Fasting Glucose[[id number]] ? Normal ?Final result ? Lipid Panel[[id number]] ? Abnormal ?Final result ? Please view results for these tests on the individual orders. Historical Provider LAB - CHEMISTRY Freeman YANES Performing Organization Address [facility] Phone [facility] [address] [place] [address], [facility] * (ABNORMAL) [facility] (08/30/2013 8:23 AM CDT) Cholesterol Total 133 <200 mg/dL [facility] HDL 35(L) > OR = 40 mg/dL [facility] Comment: ATP III classification of HDL cholesterol: <40 mg/dL Low; considered a major risk factor >60 mg/dL High; considered a negative risk factor Triglycerides 171(H) <150 mg/dL [facility] Comment: ATP III classification of Triglycerides: < 150 mg/dL ??Normal triglycerides 150-199 mg/dL Borderline-high triglycerides 200-400 mg/dL High triglycerides > 500 mg/dL ??Very high triglycerides LDL Calculated 64 0 - 100 mg/dL [facility] Comment: ATP III classification of LDL cholesterol: <100 mg/dL ??Optimal 100-129 Near optimal/above optimal 130-159 Borderline high 160-189 High >190 ?? Very high Hemoglobin A1c 5.4 4.4 - 6.3 % [facility] Estimated Average Glucose 108 mg/dL [facility] 08/30/2013 8:23 AM CDT 08/30/2013 9:48 AM CDT Historical Provider LAB - CHEMISTRY Freeman YANES [address] [phone] * GLUCOSE (08/24/2012 8:32 AM CDT) Glucose 99 70 - 115 mg/dL [facility] 08/24/2012 8:32 AM CDT 08/27/2012 7:58 AM CDT Historical Provider LAB - CHEMISTRY O MARLONERALAWSON [address] [phone] * CHOLESTEROL BLOOD (08/24/2012 8:32 AM CDT) Cholesterol Total 144 <200 mg/dL [facility] 08/24/2012 8:32 AM CDT 08/27/2012 7:58 AM CDT Historical Provider LAB - CHEMISTRY O JOAQUÍN [address] [phone] Care Teams Performance Consultant Relationship Specialty Start Date End Date Maykel Gramajo MD [address] [place] [phone] PCP - General 07/28/20
--- OUTSIDE RECORDS SUMMARY | 2024-12-04 17:40 | XMS_ITS | Referral Summary ---
Author Organization [facility] Address [address] [place] [address] Care Team Providers Care Overlock Sleeve Setter Name Role Phone Anat Gramajo MD Primary Care Provider [phone] Hernan Hernandez MD Unavailable [phone] Anat Contreras MD Unavailable [phone] Anat Villalpando MD Unavailable [phone] Encounters Date Type Department Care Team Description 10/16/2024 8:45 AM OUTSIDE INDUSTRIAL SALES REPRESENTATIVE - 10/16/2024 9:30 AM OUTSIDE INDUSTRIAL SALES REPRESENTATIVE Surgery [facility]ive Disease [address] [address] Mendel Sung MD COLON BIOPSY 10/16/2024 8:41 AM OUTSIDE INDUSTRIAL SALES REPRESENTATIVE Anesthesia Event [facility] Disease [address] [address] Tomasz Maharaj MD 10/16/2024 7:34 AM OUTSIDE INDUSTRIAL SALES REPRESENTATIVE - 10/16/2024 10:09 AM OUTSIDE INDUSTRIAL SALES REPRESENTATIVE Hospital Encounter [facility] [address] [address] Mendel Sung MD 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 (CMS/HCC) (HCC) Discharge Disposition: Discharge to home or self care 10/15/2024 Telephone [facility] Gastroenterology [address] [place] [address] for Advanced Medicine 12th [place] [address] [place] [phone] Melly Frazier, RMA 10/13/2024 Telephone [facility] Specialty Services [address] [place] [address] Zandra John RN GI PROCEDURE 3 DAY PRE CALL 10/02/2024 Orders Only [facility] Surgery [address] [facility] Floor 5 [place] [phone] Rita Griffith, JASON Malignant neoplasm of lung, unspecified laterality, unspecified part of lung (HCC) (Primary Dx) 10/02/2024 11:47 AM OUTSIDE INDUSTRIAL SALES REPRESENTATIVE - 10/02/2024 11:59 PM OUTSIDE INDUSTRIAL SALES REPRESENTATIVE Hospital Encounter [facility] [address] [place] [address] Jeremy Shane MD Malignant neoplasm of lung, unspecified laterality, unspecified part of lung (HCC) Discharge Disposition: Discharge to home or self care 10/02/2024 1:45 PM OUTSIDE INDUSTRIAL SALES REPRESENTATIVE Office Visit [facility] Surgery [address] [facility] Floor 5 [place] [address] Jeremy Shane MD Malignant neoplasm of lung, unspecified laterality, unspecified part of lung (HCC) (Primary Dx) 10/01/2024 Telephone [facility] Surgery [address] [facility] [address] [place] [phone] Familia Griffith, Roma 09/12/2024 Telephone Cardiovascular and Thoracic Surgery [address] [facility] [address] [place] [address] Lea David, NAHUM 09/10/2024 Telephone [facility] Gastroenterology [address] [facility] Advanced Medicine 12th [place] [address] [place] [phone] Caridad Shipman CMA Gi Pre Procedural Asessment 09/09/2024 Telephone [facility] Cardiology [address] [facility] [address] [place] [address] Anat Contreras MD Test Results 09/08/2024 10:31 AM CDT Anesthesia Event [facility] [address] [place] [address] Nikolay Curry MD Shelley, Joshua Michael, CRNA 09/08/2024 9:54 AM CDT - 09/08/2024 11:59 PM CDT Hospital Encounter [facility] [place] [address] Nikolay Curry MD Other specified pre-operative examination Discharge Disposition: Discharge to home or self care 09/04/2024 Orders Only [facility] Medical [facility] Cardiology [address] [facility] [address] [place] [address] Anat Contreras MD from Last 3 Months Allergies Active Allergy Reactions Criticality Noted Date Comments Lactose Stomach upset Low 07/09/2019 Medications multivitamin tablet tablet take 1 Tablet by oral route every day with food 0 0 12/10/19 14 Active Additional Information Patient taking differently: 1 tablet oral Daily after dinner, Indications: Vitamin Deficiency Prevention, Informant: Self, Reported on 10/16/2024 loratadine (CLARITIN) 10 mg tablet take 1 tablet by oral route every morning 0 0 12/10/19 14 Active ALPRAZolam (XANAX) 0.25 mg tablet take 1 tablet by oral route every day 0 01/16/20 17 Active simvastatin (ZOCOR) 20 mg tablet take 1 tablet (20MG) by oral route every day in the evening 0 10/12/20 12 Active fenofibrate (TRIGLIDE) 160 mg tablet take 1 tablet (160MG) by oral route every day 0 10/12/20 12 Active pregabalin (LYRICA) 100 mg capsuleIndicatio ns:neuropathy Take 1 capsule (100 mg total) by mouth nightly 07/24/20 19 Active acetaminophen (TYLENOL) 325 mg tabletIndication s:Fever,Pain Take 2 tablets (650 mg total) by mouth every 4 (four) hours as needed for pain 30 tablet 09/04/20 19 Active PROAIR HFA 90 mcg/actuation inhaler Inhale 2 puffs every 4 (four) hours as needed for shortness of breath 11/25/19 20 Active aspirin 81 mg enteric coated tabletIndication s:heart health Take 1 tablet (81 mg total) by mouth daily after dinner Active triamcinolone (KENALOG) 0.1 % creamIndications :Skin Inflammation Apply topically as needed prn 06/21/20 20 Active nitroglycerin (Nitrostat) 0.[address] 1 tablet (0.4 mg total) under the tongue every 5 (five) minutes as needed for chest pain (If pain has not resolved by the 3rd tablet then proceed to the emergency room) 15 tablet 11 05/31/20 23 Active tamsulosin (FLOMAX) 0.4 mg extended release capsule Take 1 capsule (0.4 mg total) by mouth daily 12/28/19 24 Active Xarelto 10 mg tablet TAKE 1 TABLET BY MOUTH DAILY 90 tablet 3 07/21/20 24 Active metoprolol XL (TOPROL-XL) 25 mg extended release tablet TAKE 1 TABLET BY MOUTH ONCE DAILY 90 tablet 3 09/01/20 24 Active HYDROcodone-acet aminophen (NORCO) 5-325 mg per tablet Take by mouth every 6 (six) hours as needed 10/10/20 24 Active mesalamine (LIALDA) 1.2 gram EC tabletIndication s: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 (CMS/HCC) (HCC) TAKE 3 TABLETS BY MOUTH DAILY 270 tablet 3 11/24/19 25 Active mesalamine (LIALDA) 1.2 gram EC tabletIndication s:inflammation around anus area Take 3 tablets (3.6 g total) by mouth daily 270 tablet 1 06/23/20 24 2024 Discontinued Active Problems Patient Care Coordination No te Formatting of this note migh t be different from the original. Referring provider: Dr. Anat Gramajo Mr. Julio C Roberson is a 73-year-old with a lung mass. 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 On 01/15/2024 the patient underwent a CTA of the abdominal aorta and bilateral iliofemoral runoff which incidentally noted a soft tissue nodule in the right middle lobe measuring 3.0 x 2.3 cm, highly suspicious for primary pulmonary malignancy. In the right lower extremity there was a stable popliteal aneurysm which was unchanged in size since 2019 with unchanged findings of endovascular repair and stenting. There was no evidence of endoleak. There was three-vessel runoff of the right lower extremity with unchanged moderate proximal stenosis of the right tibial peroneal trunk and severe stenosis of the right anterior tibial artery. In the left lower extremity there was an unchanged occlusion of the distal left superficial femoral artery and thrombosed left popliteal artery aneurysm which was unchanged in size since 2019. Patient is scheduled for a PET scan prior to his appointment today and pulmonary function testing after his appointment today. He has a history of coronary artery disease status post five-vessel CABG in 2004, DVT, peripheral vascular disease. He is on Xarelto. Patient is a former smoker who quit in 2004. Patient presents today for further surgical evaluation. Problem Noted Date Diagnosed Date Nonrheumatic aortic valve stenosis 06/02/2024 HTN (hypertension) 03/17/2024 Assessment & Plan (03/17/2024 9:28 AM CDT): - home meds as tolerated Urinary retention 03/16/2024 Assessment & Plan (03/16/2024 11:21 AM CDT): 5/3 pereyra removed, failed void check. Straight cathed x1 03/15: pereyra replaced, flomax started 03/16: pereyra removed. Void trial pending Pulmonary nodule 03/14/2024 Lung mass 02/07/2024 Assessment & Plan (03/17/2024 9:26 AM CDT): Robotic converted to open RMLobectomy, RUL wedge. Dense adhesions in the anterior mediastinum - chest tube management, to WS, no leak, thin SS drainage - PT to eval and treat - voiding - ADAT - epidural placed in PACU-plan to D/C today - DC dPCA, transition to oral oxycodone multimodal POPMs - DVT PPX: daily lovenox, SCDs - D/C chest tube today - home in AM Encounter for surgical after care following surgery on the circulatory system 12/05/2021 Trigger middle finger of right hand 09/23/2021 Dyspnea on exertion 03/23/2021 Assessment & Plan (03/23/2021 10:01 PM CDT): This could be an angina equivalent symptom. He has not had an ischemia evaluation since his last cardiac catheterization. I recommended a pharmacologic stress test which we will need to interpret in light of his previously having had a false-positive myocardial perfusion study. If this test looks like that done prior to his last catheterization, we would not plan to proceed with cardiac catheterization, but if it shows any significant new abnormalities we would need to consider that. PAD (peripheral artery disease) ([facility]) 2019 Overview (05/25/2020): Added automatically from request for surgery [id number] Popliteal artery aneurysm, bilateral 12/09/2019 Overview (12/09/2019): Added automatically from request for surgery [id number] Assessment & Plan (06/11/2020 5:49 PM CDT): - S/p status post self-expanding??covered stent (Carpenter Viabahn??9 x 150 mm) placement to exclude [...] as tolerated - ADAT - Admit overnight 2/2 no ride - Plan for left leg bypass at some point in the future Chronic rhinitis 08/21/2019 History of epistaxis 08/21/2019 Popliteal artery aneurysm ([facility]) 08/19/2019 Overview (08/19/2019): Added automatically from request for surgery [id number] Coronary artery disease of n ative artery of [place] heart with stable angina pectoris [place] 03/28/2018 Assessment & Plan (03/17/2024 9:27 AM CDT): S/p CABG 2005 - restart low dose BB titrate up as BP/HR tolerates - continue statin meds Assessment & Plan (03/23/2021 10:02 PM CDT): He is not experiencing chest discomfort, but does have exertional dyspnea. Continue anti-platelet and beta-shirley therapy. Will obtain pharmacologic stress test, realizing that in the past this was a false-positive. Assessment & Plan (10/18/2020 5:19 PM OUTSIDE INDUSTRIAL SALES REPRESENTATIVE): No symptoms of myocardial ischemia, albeit with limited physical exertion because of his peripheral vascular disease. Continue aspirin and metoprolol. Cardiac catheterization on 02/16/2017 was favorable after a false-positive surveillance myocardial perfusion study. Based on this would not plan to do surveillance testing, but if he were to be facing any major vascular or other surgery or experiencing any cardiac symptoms would evaluate. Assessment & Plan (06/11/2020 5:48 PM CDT): - S/p CABG x 4 in 2004 - Continue asa, statin, metoprolol Assessment & Plan (02/27/2019 10:03 AM CDT): No symptoms of myocardial ischemia. Continue anti-platelet and beta-shirley therapy. He was encouraged to exercise more. Assessment & Plan (03/28/2018 10:47 AM CDT): No symptoms of myocardial ischemia thirteen years status post coronary artery bypass grafting. Favorable cardiac catheterization last year. Continue aspirin. He was advised to get some exercise. I suggested at the very least doing some walking on the weekends. Hyperlipidemia 03/28/2018 Assessment & Plan (03/23/2021 10:02 PM CDT): On chronic lipid lowering therapy with good control. No changes made. Assessment & Plan (10/18/2020 5:19 PM OUTSIDE INDUSTRIAL SALES REPRESENTATIVE): He is on chronic lipid-lowering therapy. No recent testing in the setting of the COVID -19 pandemic. Assessment & Plan (06/11/2020 5:14 PM CDT): - Continue statin Assessment & Plan (02/27/2019 10:04 AM CDT): On chronic lipid lowering therapy with good control. No changes made. Assessment & Plan (03/28/2018 10:47 AM CDT): On chronic lipid lowering therapy with good control. No changes made. Chronic ulcerative pancolitis (CMS/HCC) 04/20/20 11 Immunizations Name Administration Dates Next Due Influenza, Quadrivalent, Hig h Dose, Preservative Free, Intrr 08/23/2023,08/17/2022 Influenza, Trivalent, High D ose, Split, Preservative Free, Intramuscular 08/16/2018 Influenza, Unspecified 08/19/2019 RSV, Bivalent, Protein Subun it Rsvpref, Diluent (Abrysvo) 08/08/2023 Tdap 03/26/2023 Social History Tobacco Use Types Packs/Day Years Used Date Smoking Tobacco: Former Cigarettes 1.5 35 0 07/13/1970 - 08/03/2005 Passive Smoke Exposure: Never Smokeless Tobacco: Never Tobacco Cessation:Counseling Given: Not Answered Alcohol Use Standard Drinks/Week Comments No 0 (1 standard drink = 0.6 oz pur e alcohol) AUDIT-C Answer Date Recorded Q1: How often do you have a drink containing alcohol? Never 10/16/2024 Q2: How many drinks containi ng alcohol do you have on a typical day when you are drinking? Patient does not drink Q3: How often do you have si x or more drinks on one occasion? Never 10/16/2024 Personal Safety Answer Date Recorded Have you ever been in or are you currently in a harmful physical or emotional relationship or is someone making you feel afraid or unsafe? Denies 10/16/2024 Sex and Gender Information Value Date Recorded Sex Assigned at Not on file Legal Sex Male 7:01 PM OUTSIDE INDUSTRIAL SALES REPRESENTATIVE Gender Identity Not on file Sexual Orientation Not on file Last Filed Vital Signs Vital Sign Reading Time Taken Comments Blood Pressure 143/83 10/16/2024 9:51 AM OUTSIDE INDUSTRIAL SALES REPRESENTATIVE Pulse 87 10/16/2024 9:51 AM OUTSIDE INDUSTRIAL SALES REPRESENTATIVE Temperature 36 ??C (96.8 ??F) 10/16/2024 9:21 AM OUTSIDE INDUSTRIAL SALES REPRESENTATIVE Respiratory Rate 18 10/16/2024 9:51 AM OUTSIDE INDUSTRIAL SALES REPRESENTATIVE Oxygen Saturation 95% 10/16/2024 9:51 AM OUTSIDE INDUSTRIAL SALES REPRESENTATIVE Inhaled Oxygen Concentration - - Weight 77.1 kg (170 lb) 10/16/2024 8:25 AM OUTSIDE INDUSTRIAL SALES REPRESENTATIVE Height 175.3 cm (5' 9 ) 10/16/2024 8:25 AM OUTSIDE INDUSTRIAL SALES REPRESENTATIVE Body Mass Index 25.1 10/16/2024 8:25 AM OUTSIDE INDUSTRIAL SALES REPRESENTATIVE Plan of Treatment Not on file Medical Devices Implanted Type Area Behavioral Consultant Device Identifier Shelf Expiration Date Model / Serial / Lot [employer] [id number] Viabahn 9mm 9fr 15cm 120cm Iliac Artery Stent Endoprosthesis - [id number] - [id number] Implanted:Qty: 1 on 09/03/2019 by Hernan Hernandez MD at [facility] Stent [employer] [id number] 07/22/2021 [id number] / [id number] / Description:Distal SFA Popli teal Artery [employer] [id number] Viabahn 9mm 9fr 10cm 120cm Delivery System Tip To Hub Deployment - [id number] - [id number] Implanted:Qty: 1 on 12/31/2019 by Hernan Hernandez MD at [facility] Stent Right: Leg [employer] [id number] 06/10/2022 [id number] / [id number] / [employer] Device Vascular Closure Femoral Artery Bioabsorbable Dual Method Vascade 6-7fr Collagen [id number] - S0 - [id number] Implanted:Qty: 1 on 07/25/2024 by Sigifredo Das MD at [facility] Vascular Closure Device [employer] 04/21/2026 [id number] / 0 / [id number] Cordis Mynxgrip 5fr Balloon Catheter Integrate Sealant Lock Latex Free [id number] - S0 - [id number] Implanted:Qty: 1 on 07/25/2024 by Sigifredo Das MD at [facility] Vascular Closure Device [employer] 05/05/2026 [id number] / 0 / [id number] Procedures Procedure Name Priority Date/Time Associated Diagnosis Comments SURGICAL PATHOLOGY Routine 10/16/2024 8: 57 AM OUTSIDE INDUSTRIAL SALES REPRESENTATIVE 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 (CMS/HCC) (HCC) COLON BIOPSY 10/16/2024 8:41 AM OUTSIDE INDUSTRIAL SALES REPRESENTATIVE 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 (CMS/HCC) (HCC) COLONOSCOPY 10/16/2024 8:40 AM OUTSIDE INDUSTRIAL SALES REPRESENTATIVE CT CHEST WO CONTRAST Schedule Routine, Read Routine (OP Routine) 10/02/2024 12:10 PM OUTSIDE INDUSTRIAL SALES REPRESENTATIVE Malignant neoplasm of lung, unspecified laterality, unspecified part of lung (HCC) TRANSESOPHAGEAL ECHO (CHACHA) W DOPPLER/CF WO CONTRAST Routine 09/08/2024 10:53 AM CDT Other specified pre-operative examination CTA ABDOMINAL AORTA AND BILATERAL ILIOFEMORAL RUNOFF Schedule Routine, Read Routine (OP Routine) 01/15/2024 10:28 AM OUTSIDE INDUSTRIAL SALES REPRESENTATIVE Popliteal artery aneurysm (CMS/HCC) (HCC) from Last 3 Months or Most Recently Relevant to Health Maintenance Results * Surgical pathology (10/16/2024 8:57 AM OUTSIDE INDUSTRIAL SALES REPRESENTATIVE) Tissue (Polyp(s), colon/colorectal, esophageal, gastric) 10/16/2024 8:57 AM OUTSIDE INDUSTRIAL SALES REPRESENTATIVE Tissue (Colon, Biopsy) 10/16/2024 9:05 AM OUTSIDE INDUSTRIAL SALES REPRESENTATIVE Tissue (Colon, Biopsy) 10/16/2024 9:06 AM OUTSIDE INDUSTRIAL SALES REPRESENTATIVE Tissue (Colon, Biopsy) 10/16/2024 9:07 AM OUTSIDE INDUSTRIAL SALES REPRESENTATIVE Tissue (Polyp(s), colon/colorectal, esophageal, gastric) 10/16/2024 9:08 AM OUTSIDE INDUSTRIAL SALES REPRESENTATIVE Narrative PATHOLOGY [facility] - 10/20/2024 1:25 PM OUTSIDE INDUSTRIAL SALES REPRESENTATIVE EPIC results best viewed via link to PDF [facility] [place] [address] Note to Patients: This report may contain a detailed description of human tissue sent by a health care provider to the laboratory for pathologic evaluation. The content of this report is essential for diagnosis and may provide important critical findings. This information may be unfamiliar to patients to review without a medical professional present. It is advised that the patient review this report in the presence of a health care provider who can answer questions and explain the details. SURGICAL PATHOLOGY REPORT FINAL Patient Name: ?? JULIO C ROBERSON JR. Gender: ??M : ??1950 (Age: 74) Address: ??[address] , [place], [place] ??[address] Hospital #: ??[id number] Taken:10/16/2024 Received:10/16/2024 Reported: 10/20/2024 Patient Type: [facility] SDS ?? Service: Gastroenterology Location: Physician(s): ??Anil Bhat M.D. Diagnosis: A. ??Ascending colon, polyp x2, biopsy ? - Inflammatory polyp ? - Negative for granuloma and dysplasia ?? B. ??Sigmoid colon, biopsy ? - Normal colonic mucosa ? - Negative for granuloma and dysplasia ?? C. ??Rectum, biopsy ? - Normal colonic mucosa ? - Negative for granuloma and dysplasia ? D. ??Large bowel, anastomosis blind end, biopsy ? - Colonic mucosa with severely active chronic colitis ? - CMV immunostain is negative for viral inclusions ? - Negative for granuloma and dysplasia ?? E. ??Colon, mass, biopsy ? - Colonic mucosa with marked chronic active inflammation, ulceration, focal dense fibrosis ? - CMV immunostain is negative for viral inclusions ? - Negative for granuloma and dysplasia ? - Negative for malignancy; see comment clma/10/20/2024 09:18 By this signature, I attest that the above diagnosis is based upon my personal examination of the slides(and/or other material indicated in the diagnosis). Robby Florentino MD Report Electronically Reviewed and Signed Out By ??Robby Florentino MD 10/20/2024 13:25:12 Diagnosis Comment The history of ulcerative colitis is noted. E. The clinical impression of a mass is noted. Sampling error may be a factor. If clinical concern persists, rebiopsy may be indicated. History: The patient is a 74-year-old man with ulcerative chronic pancolitis without complications. ??Operative Procedure: ??Colonoscopy with biopsies Specimen(s) Received: A: Ascending colon polyp x2 removed w/cold forceps B: Sigmoid colon bxs taken w/cold forceps C: Rectal bxs taken w/cold forceps D: Anastomosis blind end bxs taken w/cold forceps E: Colon mass bxs taken w/cold forceps Gross Description: Received in five formalin jars labeled with the patient's identifiers. A. ??Labeled ascending colon polyp x2 removed w/ cold forceps are three yellow-cuellar polypoid tissue fragments ranging from 0.3-0.4 cm in greatest dimension and measuring 0.7 x 0.4 x 0.1 cm in aggregate. ?? Labeled A1. Jar 0. B. ??Labeled sigmoid colon biopsies taken w/ cold forceps are two yellow-cuellar irregular tissue fragment(s) (measuring 0.3 and 0.4 cm in greatest dimension). ?? Labeled B1. Jar 0. C. ??Labeled rectal biopsies taken w/ cold forceps are two cuellar-red irregular tissue fragment(s) (measuring 0.3 cm in greatest dimension each). ?? Labeled C1. Jar 0. D. ??Labeled anastomosis blind end biopsies taken w/ cold forceps are two yellow-red irregular tissue fragment(s) (measuring 0.3 cm each in greatest dimension). ?? Labeled D1. Jar 0. E. ??Labeled cold mass biopsies taken w/ cold forceps are multiple yellow-cuellar irregular tissue fragment(s) (measuring 0.7 x 0.5 x 0.1 cm in aggregate). ?? Labeled E1. Jar 0. ?? axxm/10/16/2024 15:59 PA(s): Zuly Timmons MS, [facility]CM By this signature, I attest that the above diagnosis is based upon my personal examination of the slides(and/or other material). Addenda/Procedures The performance characteristics of some immunohistochemical stains, fluorescence in-situ hybridization tests and immunophenotyping by flow cytometry cited in this report (if any) were determined by the Surgical Pathology and Flow Cytometry Departments at [facility] as part of an ongoing quality control projectionist program and in compliance with federally mandated regulations drawn from the Clinical Laboratory Improvement Act of 1988 (CLIA '88). ??Some of these tests rely on the use of analyte specific reagents and are subject to specific labeling requirements by the US Food and Drug Administration. ??Such diagnostic tests may only be performed in a facility that is certified by the Department of Health and Human Services as a high complexity laboratory under CLIA '88. ??The FDA has determined that such clearance or approval is not necessary. ??This test is used for clinical purposes. ??It should not be regarded as investigational or for research. ??Nevertheless, federal rules concerning the medical use of analyte specific reagents require that the following disclaimer be attached to the report: This test was developed and its performance characteristics determined by the Surgical Pathology and Flow Cytometry Departments of [facility]. ??It has not been cleared or approved by the U. S. Food and Drug Administration. IMAGES AND SCANNED DOCUMENTS, IF INCLUDED, ONLY VIEWABLE IN PDF VERSION OF REPORT us Mendel Sung MD LAB PATHOLOGY ORDERABLES [facility] Result PATHOLOGY [facility] 3rd Floor [place], [place] [phone] * Colonoscopy (10/16/2024 8:40 AM OUTSIDE INDUSTRIAL SALES REPRESENTATIVE) Anatomical Region Laterality Modality Other Narrative Procedure Note Mendel Sung MD - 10/16/2024 8:40 AM CST [facility] END[facility] Patient Name: Julio C Roberson Procedure Date: 10/16/2024 8:40 AM Date of : 1950 Admit Type: Outpatient Age: 74 Gender: Male Attending MD: Mendel Sung M.D. Room: [facility] ENDOSCOPY ROOM 8 Note Status: Finalized Procedure: Colonoscopy Indications: Family history of colon cancer in a first-degree relative before age 60 years, Last colonoscopy: September 2013, Abnormal PET scan of the GI tract,on Lialda Referring MD: Anat Gramajo M.D. Providers: Mendel Sung M.D. Medicines: Monitored Anesthesia Care Complications: No immediate complications. Estimated Blood Loss: Estimated blood loss was minimal. Procedure: Pre-Anesthesia Assessment: - Immediately prior to administration ofmedications, the patient was re-assessed for adequacy to receive sedatives. - The risks and benefits of the procedure and the sedation options and risks were discussed with the patient. All questions were answered and informed consent was obtained. The benefits, risks and alternatives of theprocedure and sedation were discussed and informed consentwas obtained. All questions were answered. Please referto the signed informed consent document in the medical record. The scope was passed under direct vision.The [id number] [id number] endoscope was introduced through the anus and advanced to the cecum, identified by appendiceal orifice and ileocecal valve. The colonoscopy was performed without difficulty. The patient tolerated the procedure well. The qualityof the bowel preparation was evaluated using the BBPS ([place] Bowel Preparation Scale) with scores of:Right Colon = 2 (minor amount of residual staining, small fragments of stool and/or opaque liquid, but mucosa seen well), Transverse Colon = 2 (minor amount of residual staining, small fragments of stool and/or opaque liquid, but mucosa seen well) and Left Colon= 2 (minor amount of residual staining, smallfragments of stool and/or opaque liquid, but mucosa seenwell). The total BBPS score equals 6. The quality of the bowel preparation was good. The bowel preparationused was GoLYTELY via split dose instruction. Thequality of the bowel preparation was excellent. Findings: The perianal and digital rectal examinations were normal. Two Alannah classification Is (protruding, sessile) polyps were foundin the ascending colon. The polyps were 2 to 3 mm in size. These polyps were removed with a cold biopsy forceps. Resection and retrieval were complete. A few small-mouthed diverticula were found in the ascending colon. A patchy area of mildly erythematous mucosa was found in the sigmoid colon. Biopsies were taken with a cold forceps for histology. The rectum appeared normal. Biopsies were taken with a cold forcepsfor histology. There was evidence of a prior end-to-side colo-colonic anastomosis in the sigmoid colon. This was patent and the anastomosis was traversed. There was inflammation in the blind end. Biopsies were taken with acold forceps for histology. A large polypoid lesion was found at the anastomosis. The lesion was multi-lobulated. Biopsies were taken with a cold forceps forhistology. The exam was otherwise normal throughout the examined colon. Impression: - Two 2 to 3 mm polyps in the ascending colon,removed with a cold biopsy forceps. Resected andretrieved. - Diverticulosis in the ascending colon. - Erythematous mucosa in the sigmoid colon.Biopsied. - The rectum is normal. Biopsied. - Patent end-to-side colo-colonic anastomosis, characterized by inflammation. Biopsied. - Polypoid lesion at the colonic anastomosis.Biopsied. Recommendation: - Await pathology results. - Repeat colonoscopy for surveillance based on pathology results. - Resume Xarelto (rivaroxaban) at prior dosetomorrow. - Return to GI clinic as previously scheduled. - - Contact Information: During normal business hours - [facility]: [phone]. After hours, evening, nights, weekends and holidays- Please call the hospital bone char operator at and ask for the GI fellow beverage sales consultant. Electronically signed by Mendel Sung MD Mendel Sung M.D. 10/16/2024 9:23:20 AM . Number of Addenda: 0 Note Initiated On: 10/16/2024 8:40 AM us Mendel Sung MD ENDOSCOPY PROCEDURES Final Result * CT Chest WO Contrast (10/02/2024 12:10 PM OUTSIDE INDUSTRIAL SALES REPRESENTATIVE) Anatomical Region Laterality Modality Body N/A Computed Tomogra phy 10/02/2024 12:2 0 PM OUTSIDE INDUSTRIAL SALES REPRESENTATIVE Impressions 10/02/2024 12:20 PM OUTSIDE INDUSTRIAL SALES REPRESENTATIVE 1. ??Interval changes of right middle lobectomy and right upper lobe wedge resection. There is mild nodularity around the suture line of the right upper lobe wedge resection and and adjacent small loculated pleural collection, which may be within normal limits for postoperative status. Continued attention on follow-up. 2. ??Stable right lower paratracheal lymph node. Electronically signed by: José Rich M.D. Narrative 10/02/2024 12:20 PM OUTSIDE INDUSTRIAL SALES REPRESENTATIVE EXAMINATION: ??Computed tomography of the chest without intravenous contrast HISTORY: Lung cancer follow-up TECHNIQUE: ??Transaxial computed tomographic images of the chest were obtained without intravenous contrast according to the standard protocol. COMPARISON: Head CT 02/07/2024 FINDINGS: ?? Interval surgical changes of right middle lobectomy and right upper lobe wedge resection. There is mild nodularity surrounding the suture line of the right upper lobe wedge resection, which may be within normal limits for postoperative status. There is a small amount of pleural fluid adjacent to the resection site. There are no new or enlarging pulmonary nodules. No pneumothorax. Mild emphysema. Heart size mildly enlarged. There is three-vessel coronary artery disease with surgical changes of coronary artery bypass grafting. No pericardial effusion. Similar appearance of the right lower paratracheal lymph node which 12 mm in short axis dimension (2/50). Surgical changes of the right hilum from lymph node dissection. Degenerative changes of the imaged spine. Median sternotomy. No acute or aggressive osseous abnormalities. Cholelithiasis without acute cholecystitis. Small macroscopic fatty nodule within the left adrenal gland, statistically benign. Procedure Note José Rich MD - 10/02/2024 EXAMINATION: Computed tomography of the chest without intravenous contrast HISTORY: Lung cancer follow-up TECHNIQUE: Transaxial computed tomographic images of the chest were obtained without intravenous contrast according to the standard protocol. COMPARISON: Head CT 02/07/2024 FINDINGS: Interval surgical changes of right middle lobectomy and right upper lobe wedge resection. There is mild nodularity surrounding the suture line of the right upper lobe wedge resection, which may be within normal limits for postoperative status. There is a small amount of pleural fluid adjacent to the resection site. There are no new or enlarging pulmonary nodules. No pneumothorax. Mild emphysema. Heart size mildly enlarged. There is three-vessel coronary artery disease with surgical changes of coronary artery bypass grafting. No pericardial effusion. Similar appearance of the right lower paratracheal lymph node which 12 mm in short axis dimension (2/50). Surgical changes of the right hilum from lymph node dissection. Degenerative changes of the imaged spine. Median sternotomy. No acute or aggressive osseous abnormalities. Cholelithiasis without acute cholecystitis. Small macroscopic fatty nodule within the left adrenal gland, statistically benign. IMPRESSION: 1. Interval changes of right middle lobectomy and right upper lobe wedge resection. There is mild nodularity around the suture line of the right upper lobe wedge resection and and adjacent small loculated pleural collection, which may be within normal limits for postoperative status. Continued attention on follow-up. 2. Stable right lower paratracheal lymph node. Electronically signed by: José Rich M.D. us Jeremy Shane MD IMG CT PROCEDURES Catia l Result * TRANSESOPHAGEAL ECHO (CHACHA) W DOPPLER/CF WO CONTRAST (09/08/2024 10:53 AM CDT) Anatomical Region Laterality Modality Echocardiography 09/08/2024 10:3 3 AM CDT Narrative 09/08/2024 5:21 PM CDT [facility] [address] [place] [address] TRANSESOPHAGEAL ECHOCARDIOGRAM Patient Name: JULIO C ROBERSON RAYMOND : 1950 Study Date: 09/08/2024 10:33:44 AM Gender: M Tech: RL Location: [facility] Ref Provider: ANAT CONTRERAS ?Height(Cm): 175 BSA: ??Weight(Kg): 78.02 BP: 150/73 ?Order Provider: ANAT CONTRERAS - PROCEDURES: Transesophageal Echo Report: Transesophageal echocardiogram including 2D imaging, spectral doppler and color doppler was performed bedside. The procedure was monitored with automatic blood pressure monitoring, ECG tracings, and pulse oximetry. Sedation was achieved by anesthesia using Propofol IV. The transesophageal probe was placed in the esophagus posterior to the heart without any complications. The patient tolerated the procedure well. INDICATIONS: Z01.818 Encounter for other preprocedural examination. Measurements: FINDINGS: BP: Blood pressure: 150/73 mmHg. Left Ventricle: Normal global left ventricular systolic function with regional wall motion abnormality. There appears to be hypokinesis of the distal anterior and anteroseptal rosa and wrapping the apex. Ejection Fraction is estimated at 55-60 %. Normal left ventricular cavity size. Right Ventricle: Normal right ventricular size. Normal right ventricular systolic function. Left Atrium: Not well visualized. LA Appendage: No SHANTELLE thrombus seen. Right Atrium: The right atrium is normal in size. Atrial Septum: Normal atrial septum. Saline contrast study negative for R to L shunt. Mitral Valve: Normal appearance of the mitral valve. Trace mitral valve regurgitation. There is no evidence for significant mitral stenosis. Aortic Valve: Aortic cusps appear moderately calcified. Trileaflet aortic valve. There is no aortic regurgitation. Moderate aortic stenosis. Tricuspid Valve: Normal appearance and function with trace (physiologic) regurgitation of the tricuspid valve. TR envelope inadequate to estimate RVSP. Pulmonic Valve: Grossly normal appearing pulmonic valve. No pulmonic stenosis. No evidence of pulmonic regurgitation. Pericardium: No pericardial effusion. Aorta: Normal aortic root size. Normal size descending thoracic aorta. Ascending aorta is normal in size. Pulmonary Artery: Normal pulmonary artery size. CONCLUSIONS: 1. Normal global left ventricular systolic function with regional wall motion abnormality. There appears to be hypokinesis of the distal anterior and anteroseptal rosa and wrapping the apex. Ejection Fraction is estimated at 55-60 %. Normal left ventricular cavity size. 2. Normal right ventricular size. Normal right ventricular systolic function. 3. Aortic cusps appear moderately calcified. Trileaflet aortic valve. There is no aortic regurgitation. Moderate aortic stenosis. Electronically Signed By: Anat wilson 2024-09-08 17:20:29 CDT Procedure Note Anat Contreras MD - 09/08/2024 [facility] [address] [place] [address] TRANSESOPHAGEAL ECHOCARDIOGRAM Patient Name: JULIO C ROBERSON RAYMOND : 1950 Study Date: 09/08/2024 10:33:44 AM Gender: M Tech: Location: [facility] Ref Provider: ANAT CONTRERAS Height(Cm): 175 BSA: Weight(Kg): 78.02 BP: 150/73 Order Provider: ANAT CONTRERAS - PROCEDURES: Transesophageal Echo Report: Transesophageal echocardiogram including 2D imaging, spectral doppler andcolor doppler was performed bedside. The procedure was monitored with automatic bloodpressure monitoring, ECG tracings, and pulse oximetry. Sedation was achieved byanesthesia using Propofol IV. The transesophageal probe was placed in the esophagusposterior to the heart without any complications. The patient tolerated the procedure well. INDICATIONS: Z01.818 Encounter for other preprocedural examination. Measurements: FINDINGS: BP: Blood pressure: 150/73 mmHg. Left Ventricle: Normal global left ventricular systolic function with regional wall motionabnormality. There appears to be hypokinesis of the distal anterior and anteroseptalwalls and wrapping the apex. Ejection Fraction is estimated at 55-60 %. Normal leftventricular cavity size. Right Ventricle: Normal right ventricular size. Normal right ventricular systolicfunction. Left Atrium: Not well visualized. LA Appendage: No SHANTELLE thrombus seen. Right Atrium: The right atrium is normal in size. Atrial Septum: Normal atrial septum. Saline contrast study negative for R to L shunt. Mitral Valve: Normal appearance of the mitral valve. Trace mitral valve regurgitation.There is no evidence for significant mitral stenosis. Aortic Valve: Aortic cusps appear moderately calcified. Trileaflet aortic valve. Thereis no aortic regurgitation. Moderate aortic stenosis. Tricuspid Valve: Normal appearance and function with trace (physiologic) regurgitation ofthe tricuspid valve. TR envelope inadequate to estimate RVSP. Pulmonic Valve: Grossly normal appearing pulmonic valve. No pulmonic stenosis. No evidenceof pulmonic regurgitation. Pericardium: No pericardial effusion. Aorta: Normal aortic root size. Normal size descending thoracic aorta. Ascendingaorta is normal in size. Pulmonary Artery: Normal pulmonary artery size. CONCLUSIONS: 1. Normal global left ventricular systolic function with regional wallmotion abnormality. There appears to be hypokinesis of the distal anterior andanteroseptal rosa and wrapping the apex. Ejection Fraction is estimated at 55-60 %.Normal left ventricular cavity size. 2. Normal right ventricular size. Normal right ventricular systolicfunction. 3. Aortic cusps appear moderately calcified. Trileaflet aortic valve.There is no aortic regurgitation. Moderate aortic stenosis. Electronically Signed By: Anat Contreras MD mobap 2024-09-08 17:20:29 CDT us Anat Contreras MD CV ECHO PROCEDURES Final R esult * CTA Abdominal Aorta And Bilateral Iliofemoral Runoff (01/15/2024 10:28 AM OUTSIDE INDUSTRIAL SALES REPRESENTATIVE) Anatomical Region Laterality Modality Body Bilateral Computed Tomogra phy 01/15/2024 11:5 2 AM OUTSIDE INDUSTRIAL SALES REPRESENTATIVE Addenda Addendum by Jason Mahan MD on 03/03/2024 3:45 PM CDT Follow up Cardiothoracic Surgery consult and PET/CT done on 02/07/24. Margarita CHAVEZ, RN. Edited by: Margarita Mccabe Electronically signed by: Jason Mahan M.D. Impressions 01/15/2024 1:08 PM OUTSIDE INDUSTRIAL SALES REPRESENTATIVE 1. ??Spiculated soft tissue nodule in the right middle lobe measuring 3.0 x 2.3 cm in diameter, highly suspicious for a primary pulmonary malignancy. ??Further workup with tissue sampling or FDG PET/CT is recommended. 2. ??Right lower extremity: Stable popliteal artery aneurysm, unchanged in size relative to 2019, with unchanged findings of endovascular repair and stenting. ??No evidence of endoleak. Three-vessel runoff of the right lower extremity with unchanged moderate proximal stenosis of the right tibial peroneal trunk and severe stenosis of the right anterior tibial artery. 3. ??Left lower extremity: Unchanged occlusion of the distal left superficial femoral artery and thrombosed left popliteal artery aneurysm, unchanged in size relative to 2020. ??Redemonstrated three-vessel runoff of the left lower extremity with unchanged occlusion of the distal left superficial femoral artery. Recommend follow up of the Incidental lung nodule Additional Imaging less than 1 month with FDG PET/CT or tissue sampling. ?? Dictated by: Leandro Miller M.D. The radiology attending physician has personally reviewed this study, and had reviewed and/or edited this written report and agrees with it. Electronically signed by: Jason Mahan M.D. Narrative 01/15/2024 1:08 PM OUTSIDE INDUSTRIAL SALES REPRESENTATIVE EXAMINATION: ??CT ANGIOGRAPHY OF THE ABDOMEN, PELVIS, AND LOWER EXTREMITIES WITH CONTRAST HISTORY: 73-year-old male with history of bilateral popliteal artery aneurysms, status post endovascular repair of the right aneurysm, gated by endoleak requiring stenting now with increased size of the right aneurysm on sonography. ?? TECHNIQUE: CT angiography of the abdomen, pelvis, and lower extremities was performed following the uneventful intravenous administration of 20 ml Optiray-350. Vascular 3D images were generated on a dedicated workstation and also reviewed. COMPARISON: Multiple prior CT angiographic exams of the abdomen, pelvis, and lower extremities, most recently dated 05/10/2020 dating back to 07/09/2019. 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 Right renal vessels: Mild atherosclerotic calcification of the origin of the right renal artery without significant stenosis. Left renal vessels: Mild atherosclerotic opacification of the origin of the left renal artery without significant stenosis. Infrarenal aorta: Circumferential calcified and noncalcified atherosclerosis resulting in mild stenosis. Pelvic Vessels: R. Common iliac artery: ??Extensive atherosclerotic calcification resulting in mild multifocal stenosis. R. External iliac artery: ??Extensive atherosclerotic calcification resulting in mild multifocal stenosis. R. Internal iliac artery: ??Extensive atherosclerotic calcification resulting in mild multifocal stenosis. L. Common iliac artery: ??Extensive atherosclerotic calcification resulting in mild multifocal stenosis. L. External iliac artery: ??Extensive atherosclerotic calcification resulting in mild multifocal stenosis. L. Internal iliac artery: ??Extensive atherosclerotic calcification resulting in mild multifocal stenosis. Right Lower Extremity: R. Common femoral artery: ??Multifocal atherosclerotic calcifications resulting in mild stenosis. ??Unchanged suggestion of intimal flap within the distal right common femoral artery. R. Profunda femoris artery: ??no significant stenosis R. Superficial femoral artery: ??Multifocal atherosclerotic plaques resulting in mild multifocal stenosis in the mid thigh. R. Popliteal artery: ??Extensive fusiform aneurysmal dilatation of the right popliteal artery, measuring up to 3.8 cm in greatest diameter, not significantly changed from prior study. ??Stent within the popliteal artery aneurysm is again seen with small volume nonocclusive thrombus, not changed relative to prior. ??No evidence of endoleak. ??Popliteal artery distal to the stent is of normal caliber. R. Anterior tibial artery: ??Severe atherosclerotic stenosis of the origin with diminutive caliber but patency distally.. R. Tibioperoneal trunk: ??Mild to moderate atherosclerotic stenosis. R. Posterior tibial artery: ??Moderate stenosis of the origin. ??Dense circumferential calcifications limit evaluation of the posterior tibial artery from the level of the mid calf. R. Peroneal artery: ??no significant stenosis R. Dorsalis pedis artery: ??no significant stenosis R. Plantar artery: ??no significant stenosis Left Lower Extremity: L. Common femoral artery: ??Atherosclerotic calcifications resulting in up to mild stenosis of the distal common femoral artery L. Profunda femoris artery: ??No significant stenosis L. Superficial femoral artery: ??Unchanged long segment occlusion of the distal left superficial femoral. L. Popliteal artery: ??Unchanged thrombosed fusiform left popliteal artery aneurysm measuring up to 5.5 cm in greatest diameter, not significantly changed from 04/2020. ??There is reconstitution of the popliteal artery distal to the aneurysm. L. Anterior tibial artery: ??Mild atherosclerotic stenosis of the origin of the left anterior tibial artery. ??The left anterior tibial artery is patent to the level of the dorsalis pedis. L. Tibioperoneal trunk: ??no significant stenosis L. Posterior tibial artery: ??no significant stenosis L. Peroneal artery: ??no significant stenosis L. Dorsalis pedis artery: ??no significant stenosis L. Plantar artery: ??no significant stenosis NON-VASCULAR FINDINGS: There is a 3.0 x 2.3 cm spiculated soft tissue nodule in the anterior right middle lobe, highly suspicious for a primary pulmonary malignancy. ??No additional suspicious nodules. ??No pleural effusion. The heart size is within normal limits. ??No suspicious lymphadenopathy in the imaged mediastinum. There are 2 arterially hyperenhancing lesions in the right hemiliver, seen on series 5 image 99 and series 5 image 116. ??These lesions were not definitively seen on prior imaging but are favored to represent flash filling hemangiomas or perfusional differences. ??Cholelithiasis focal cystitis. ??The pancreas is normal. ??The spleen is normal. ??The adrenal glands are normal. Stomach is normal. ??Small bowel and colon are normal in caliber without evidence of obstruction or wall thickening. ??Appendix is normal. ??No ascites. ??No pneumoperitoneum. No suspicious abdominal or pelvic lymphadenopathy. ??No suspicious osseous lesions. Procedure Note Jason Mahan MD - 01/15/2024 EXAMINATION: CT ANGIOGRAPHY OF THE ABDOMEN, PELVIS, AND LOWER EXTREMITIES WITH CONTRAST HISTORY: 73-year-old male with history of bilateral popliteal artery aneurysms, status post endovascular repair of the right aneurysm, gated by endoleak requiring stenting now with increased size of the right aneurysm on sonography. TECHNIQUE: CT angiography of the abdomen, pelvis, and lower extremities was performed following the uneventful intravenous administration of 20 ml Optiray-350. Vascular 3D images were generated on a dedicated workstation and also reviewed. COMPARISON: Multiple prior CT angiographic exams of the abdomen, pelvis, and lower extremities, most recently dated 05/10/2020 dating back to 07/09/2019. 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 Right renal vessels: Mild atherosclerotic calcification of the origin of the right renal artery without significant stenosis. Left renal vessels: Mild atherosclerotic opacification of the origin of the left renal artery without significant stenosis. Infrarenal aorta: Circumferential calcified and noncalcified atherosclerosis resulting in mild stenosis. Pelvic Vessels: R. Common iliac artery: Extensive atherosclerotic calcification resulting in mild multifocal stenosis. R. External iliac artery: Extensive atherosclerotic calcification resulting in mild multifocal stenosis. R. Internal iliac artery: Extensive atherosclerotic calcification resulting in mild multifocal stenosis. L. Common iliac artery: Extensive atherosclerotic calcification resulting in mild multifocal stenosis. L. External iliac artery: Extensive atherosclerotic calcification resulting in mild multifocal stenosis. L. Internal iliac artery: Extensive atherosclerotic calcification resulting in mild multifocal stenosis. Right Lower Extremity: R. Common femoral artery: Multifocal atherosclerotic calcifications resulting in mild stenosis. Unchanged suggestion of intimal flap within the distal right common femoral artery. R. Profunda femoris artery: no significant stenosis R. Superficial femoral artery: Multifocal atherosclerotic plaques resulting in mild multifocal stenosis in the mid thigh. R. Popliteal artery: Extensive fusiform aneurysmal dilatation of the right popliteal artery, measuring up to 3.8 cm in greatest diameter, not significantly changed from prior study. Stent within the popliteal artery aneurysm is again seen with small volume nonocclusive thrombus, not changed relative to prior. No evidence of endoleak. Popliteal artery distal to the stent is of normal caliber. R. Anterior tibial artery: Severe atherosclerotic stenosis of the origin with diminutive caliber but patency distally.. R. Tibioperoneal trunk: Mild to moderate atherosclerotic stenosis. R. Posterior tibial artery: Moderate stenosis of the origin. Dense circumferential calcifications limit evaluation of the posterior tibial artery from the level of the mid calf. R. Peroneal artery: no significant stenosis R. Dorsalis pedis artery: no significant stenosis R. Plantar artery: no significant stenosis Left Lower Extremity: L. Common femoral artery: Atherosclerotic calcifications resulting in up to mild stenosis of the distal common femoral artery L. Profunda femoris artery: No significant stenosis L. Superficial femoral artery: Unchanged long segment occlusion of the distal left superficial femoral. L. Popliteal artery: Unchanged thrombosed fusiform left popliteal artery aneurysm measuring up to 5.5 cm in greatest diameter, not significantly changed from 04/2020. There is reconstitution of the popliteal artery distal to the aneurysm. L. Anterior tibial artery: Mild atherosclerotic stenosis of the origin of the left anterior tibial artery. The left anterior tibial artery is patent to the level of the dorsalis pedis. L. Tibioperoneal trunk: no significant stenosis L. Posterior tibial artery: no significant stenosis L. Peroneal artery: no significant stenosis L. Dorsalis pedis artery: no significant stenosis L. Plantar artery: no significant stenosis NON-VASCULAR FINDINGS: There is a 3.0 x 2.3 cm spiculated soft tissue nodule in the anterior right middle lobe, highly suspicious for a primary pulmonary malignancy. No additional suspicious nodules. No pleural effusion. The heart size is within normal limits. No suspicious lymphadenopathy in the imaged mediastinum. There are 2 arterially hyperenhancing lesions in the right hemiliver, seen on series 5 image 99 and series 5 image 116. These lesions were not definitively seen on prior imaging but are favored to represent flash filling hemangiomas or perfusional differences. Cholelithiasis focal cystitis. The pancreas is normal. The spleen is normal. The adrenal glands are normal. Stomach is normal. Small bowel and colon are normal in caliber without evidence of obstruction or wall thickening. Appendix is normal. No ascites. No pneumoperitoneum. No suspicious abdominal or pelvic lymphadenopathy. No suspicious osseous lesions. IMPRESSION: 1. Spiculated soft tissue nodule in the right middle lobe measuring 3.0 x 2.3 cm in diameter, highly suspicious for a primary pulmonary malignancy. Further workup with tissue sampling or FDG PET/CT is recommended. 2. Right lower extremity: Stable popliteal artery aneurysm, unchanged in size relative to 2020, with unchanged findings of endovascular repair and stenting. No evidence of endoleak. Three-vessel runoff of the right lower extremity with unchanged moderate proximal stenosis of the right tibial peroneal trunk and severe stenosis of the right anterior tibial artery. 3. Left lower extremity: Unchanged occlusion of the distal left superficial femoral artery and thrombosed left popliteal artery aneurysm, unchanged in size relative to 2020. Redemonstrated three-vessel runoff of the left lower extremity with unchanged occlusion of the distal left superficial femoral artery. Recommend follow up of the Incidental lung nodule Additional Imaging less than 1 month with FDG PET/CT or tissue sampling. Dictated by: Leandro Miller M.D. The radiology attending physician has personally reviewed this study, and had reviewed and/or edited this written report and agrees with it. Electronically signed by: Jason Mahan M.D. Garo Barton MD [facility] [place] PROCEDURES Edited Resul t - Final from Last 3 Months or Most Recently Relevant to Health Maintenance Insurance MEDICARE [facility] MEDICARE A[employer] Advance Directives For more information, please contact: [phone] Documents on File Type Date Recorded Patient [employer] anation Power of [employer] Worker 07/25/2024 6:24 AM * Full Code (Latest Code Status on File) Date Activated Date Inactivated Comments 10/16/2024 8:06 AM 10/16/2024 2:12 PM * Full Code Date Activated Date Inactivated Comments 03/14/2024 11:15 AM 03/18/2024 3:54 PM * Full Code Date Activated Date Inactivated Comments 06/11/2020 2:41 PM 06/12/2020 1:38 PM * Full Code Date Activated Date Inactivated Comments 12/31/2019 1:32 PM 01/01/2020 2:58 PM * Full Code Date Activated Date Inactivated Comments 09/03/2019 4:37 PM 09/04/2019 7:06 PM Care Teams Overlock Sleeve Setter Relationship Specialty Start Date End Date Anat Gramajo MD PCP - General 02/09/17 Hernan Hernandez MD Surgeon Vascular Surgery 09/04/19 Anat Contreras MD [address] [place] [address] Referring Physician Cardiology 07/25/24 Anat Villalpando MD [address] [place] [address] Consulting Physician Cardiothoracic Surgery 07/25/24
--- OUTSIDE RECORDS SUMMARY | 2024-12-04 17:40 | XMS_ITS | Encounter Summary ---
Author Organization [facility] Address [address] [place] [address] Care Team Providers Care Cigar Packer And Sorter Name Role Phone Maykel Gramajo MD Primary Care Provider [phone]- [phone] Encounter Details Date Type Department Care Team (Late st Contact Info) Description 08/19/2018 Lab Requisition [facility] [address] [place] [id number] Unlisted, Ordering Provider, Social History Tobacco Use Types Packs/Day Years Used Date Smoking Tobacco: Never Assessed Sex and Gender Information Value Date Recorded Sex Assigned at Not on file Gender Identity Not on file Sexual Orientation Not on file documented as of this encounter Plan of Treatment Not on file documented as of this encounter Procedures Procedure Name Priority Date/Time Associated Diagnosis Comments GLUCOSE VITALITY Routine 08/22/2018 7:20 AM CDT HEMOGLOBIN A1C Routine 08/22/2018 7:20 AM CDT LIPID PROFILE Routine 08/22/2018 7:20 AM CDT documented in this encounter Results * HEMOGLOBIN A1C (08/22/2018 7:20 AM CDT) Hemoglobin A1c 5.8 4.4 - 6.3 % 08/22/2018 11:58 AM CDT [facility] Estimated Average Glucose 120 mg/dL 08/22/2018 11:58 AM CDT [facility] Comment: HbA1c Interpretation: Treatment target values recommended by ADA and other clinical organizations should be used to evaluate metabolic control in patients. Treatment Target Values: Normal : < 5.7% Pre-diabetes: 5.7-6.4% Diabetes: Equal to or greater than 6.5% Reference: [place] [employer] Standards of Care in Diabetes -2014 In patients 70 years and older consider HbA1c target range of 7.0-7.5% Reference: ??Diabetes Mellitus in Older People: Position Statement on behalf of the International Association of Gerontology and Geriatrics (IAGG), the Diabetes Working [employer] for Older People (EDWPOP), and the International Task Force of Experts in Diabetes. ??Pj Brandon, et al. J [employer]. 2012 Test results diagnostic [...] - CHEM ISTRY ORDERABLES Performing Organization Address City/State/[facility] Co de Phone Number [address] [phone] * (ABNORMAL) LIPID PROFILE (08/22/2018 7:20 AM CDT) [facility] Signature Cholesterol Total 93 <200 mg/dL 08/22/2018 10:49 AM CDT [facility] HDL 32(L) >40 mg/dL 08/22/2018 10:49 AM T [facility] Comment: ATP III Classification of HDL Cholesterol: ? <40 mg/dL: ??Considered a major risk factor. ? >60 mg/dL: ??Considered a negative risk factor. ? LDL Calculated 36 <100 mg/dL 08/22/2018 10:49 AM [facility] Comment: ATP III Classification of LDL Cholesterol: ?<100 mg/dL: ??Optimal ? 100 - 129 mg/dL: ??Near Optimal/Above Optimal ? 130 - 159 mg/dL: ??Borderline High ? 160 - 189 mg/dL: ??High ?>190 mg/dL: ??Very High ? Triglycerides 125 <150 mg/dL 08/22/2018 10:49 AM CDT [facility] Comment: ATP III Classification of Triglycerides: ?<150 mg/dL: ??Normal ? 150 - 199 mg/dL: ??Borderline High ? 200 - 400 mg/dL: ??High ?>500 mg/dL: ??Very High Blood BLOOD SPECIMEN / Unknown Lab Venipuncture / Unknown 08/22/2018 7:20 AM CDT 08/22/2018 9:54 AM CDT Ordering Provider Unlisted LAB - CHEM ISTRY ORDERABLES [address] [phone] * GLUCOSE VITALITY (08/22/2018 7:20 AM CDT) Glucose 101 70 - 115 mg/dL 08/22/2018 10:23 AM CDT [facility] Blood BLOOD SPECIMEN / Unknown Lab Venipuncture / Unknown 08/22/2018 7:20 AM CDT 08/22/2018 9:54 AM CDT Ordering Provider Unlisted LAB - CHEM ISTRY ORDERABLES [address] [phone] documented in this encounter Visit Diagnoses Not on filedocumented in this encounter Care Teams Cigar Packer And Sorter Relationship Specialty Start Date End Date Maykel Gramajo MD [address] [place] [id number] PCP - General 07/28/20 documented as of this encounter
--- OUTSIDE RECORDS SUMMARY | 2024-12-04 17:40 | XMS_ITS | Clinical Summary ---
Author Organization [facility] Address [address] [place] [address] Care Team Providers Care Bond Trader Name Role Phone Anat Gramajo MD Primary Care Provider [phone] Hernan Hernandez MD Unavailable [phone] Anat Contreras MD Unavailable [phone] Anat Villalpando MD Unavailable [phone] Allergies Active Allergy Reactions Criticality Noted Date [...] to consider that. PAD (peripheral artery disease) ([facility]) 2019 Overview (05/25/2020): Added automatically from request for surgery [id number] Popliteal artery aneurysm, bilateral 12/09/2019 Overview (12/09/2019): Added automatically from request for surgery [id number] Assessment & Plan (06/11/2020 5:49 PM CDT): - S/p status post self-expanding??covered stent (Mellette Viabahn??9 x 150 mm) placement to exclude [...] History of epistaxis 08/21/2019 Popliteal artery aneurysm ([facility]) 08/19/2019 Overview (08/19/2019): Added automatically from request for surgery [id number] Coronary artery disease of n ative artery of [place] heart with stable angina pectoris ([facility]) 03/28/2018 Assessment & Plan (03/17/2024 9:27 AM [...] false-positive. Assessment & Plan (10/18/2020 5:19 PM RECREATIONAL THERAPY AIDE): No symptoms of myocardial ischemia, albeit with [...] CDT): - S/p CABG x 4 in 2005 - Continue asa, statin, metoprolol Assessment & [...] made. Assessment & Plan (10/18/2020 5:19 PM RECREATIONAL THERAPY AIDE): He is on chronic lipid-lowering therapy. No [...] made. Chronic ulcerative pancolitis (CMS/HCC) 04/20/20 11 Encounters Date Type Department Care Team Description 10/16/2024 8:45 AM RECREATIONAL THERAPY AIDE - 10/16/2024 9:30 AM RECREATIONAL THERAPY AIDE Surgery [facility] [place] [address] [place] [address] Mendel Sung MD COLON BIOPSY 10/16/2024 8:41 AM RECREATIONAL THERAPY AIDE Anesthesia Event [facility] [place] [address] [place] [address] Tomasz Maharaj MD 10/16/2024 7:34 AM RECREATIONAL THERAPY AIDE - 10/16/2024 10:09 AM RECREATIONAL THERAPY AIDE Hospital Encounter [facility] [place] [address] [place] [address] Mendel Sung MD 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 (CMS/HCC) (HCC) Discharge Disposition: Discharge to home or self care 10/15/2024 Telephone [facility] Gastroenterology [address] [place] [address] [place] [address] Melly Frazier RMA 10/13/2024 Telephone [facility] Specialty Services [address] [place] [address] Zandra John RN GI PROCEDURE 3 DAY PRE CALL 10/02/2024 1:45 PM RECREATIONAL THERAPY AIDE Office Visit [facility] Surgery [address] [place] [address] Jeremy Shane MD Malignant neoplasm of lung, unspecified laterality, unspecified part of lung (HCC) (Primary Dx) 10/02/2024 11:47 AM RECREATIONAL THERAPY AIDE - 10/02/2024 11:59 PM RECREATIONAL THERAPY AIDE Hospital Encounter [facility] [address] [place] [address] Jeremy Shane MD Malignant neoplasm of lung, unspecified laterality, unspecified part of lung (HCC) Discharge Disposition: Discharge to home or self care 10/02/2024 Orders Only [facility] Surgery [address] [place] [address] Rita Griffith NP Malignant neoplasm of lung, unspecified laterality, unspecified part of lung (HCC) (Primary Dx) 10/01/2024 Telephone [facility] Surgery [address] [place] [address] Familia Griffith RMA 09/12/2024 Telephone Cardiovascular and Thoracic Surgery [address] [place] [address] Lea David RN 09/10/2024 Telephone [facility] Gastroenterology [address] [facility] 12th [place] [address] [place] [address] Caridad Shipman CMA Gi Pre Procedural Asessment 09/09/2024 Telephone [facility] Cardiology [address] [place] [address] Anat Contreras MD Test Results 09/08/2024 10:31 AM CDT Anesthesia Event [facility] [place] [address] Nikolay Curry MD Shelley, Joshua Michael, CRNA 09/08/2024 9:54 AM CDT - 09/08/2024 11:59 PM CDT Hospital Encounter [facility] [address] [place] [address] Nikolay Curry MD Other specified pre-operative examination Discharge Disposition: Discharge to home or self care 09/04/2024 Orders Only [facility] Cardiology [address] [place] [address] Anat Contreras MD from Last 3 Months Immunizations Name Administration Dates Next Due Influenza, Quadrivalent, Hig h Dose, Preservative Free, Intrr 08/23/2023,08/17/2022 Influenza, Trivalent, High D ose, Split, Preservative Free, Intramuscular 08/16/2018 Influenza, Unspecified 08/19/2019 RSV, Bivalent, Protein Subun it Rsvpref, Diluent (Abrysvo) 08/08/2023 Tdap 03/26/2023 Surgical History Surgery Date Site/Laterality Comments CORONARY ARTERY BYPASS GRAFT 11/12/2004 - 11/11/2005 Coronary Artery Bypass Graft - 5 vessels TONSILLECTOMY childhood - unknown year COLECTOMY 11/12/2006 - 11/11/2007 COLONOSCOPY 2012 & 2009 CARDIAC CATHETERIZATION 02/16/2017 CARDIAC CATHETERIZATION 11/12/2004 - 11/11/2005 CATARACT EXTRACTION 02/23/2021 Right ANGIOPLASTY Right Leg May 2020 VASCULAR SURGERY 12/31/2019 Self-expanding covered stent (Mellette Viabahn 9 x 100 mm) placement to exclude right SFA/popliteal aneurysm VASCULAR SURGERY 09/03/2019 . Right lower extremity angiogram 2. Self-expanding covered stent (Mellette Viabahn 9 x 150 mm) placement to exclude right SFA/popliteal aneurysm LOBECTOMY 03/12/2024 - 04/11/2024 right middle lobe Medical History Medical History Date Comments Allergic rhinitis Anxiety Peripheral vascular disease (HCC) hx of stents right leg Sinusitis DVT of lower extremity (deep venous thrombosis) ([facility]) 2004 S/pm CABG x5v Other complications of anest hesia, sequela 07/2005 Had postoperative respirator y issues after CABG x5 necessitating prolonged intubation Coronary artery disease Hyperlipidemia Diverticulitis 2007 Colovesical fist william requiring surgery Cataract Hypertension Clotting disorder (CMS/HCC) (HCC) Neuromuscular disorder (HCC) left foot Aortic stenosis History of blood transfusion 07/2005 Vision loss of left eye COPD (chronic obstructive pu lmonary disease) ([facility]) 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 (HCC) 03/2024 lobectomy with thoractomy Delayed emergence from gener al anesthesia Family History Medical History Relation Name Comments Colon cancer Child son Asthma Father Julio C Roberson SR Heart attack Mother Radha Roberson Myocardial In farction; Heart disease Mother Radha Roberson Hypertension Mother Radha Roberson Family histor y of hypertension - (Added by TW Conv) Arthritis Other Stroke Neg Hx Relation Name Status Comments Child son Alive Father Julio C Roberson SR Mother Radha Roberson Alive Other Social History Tobacco Use Types Packs/Day Years [...] on file Legal Sex Male 7:01 PM RECREATIONAL THERAPY AIDE Gender Identity Not on file Sexual Orientation Not on file Obstetrics History Last Filed Vital Signs Vital Sign Reading Time Taken Comments Blood Pressure 143/83 10/16/2024 9:51 AM RECREATIONAL THERAPY AIDE Pulse 87 10/16/2024 9:51 AM RECREATIONAL THERAPY AIDE Temperature 36 ??C (96.8 ??F) 10/16/2024 9:21 AM RECREATIONAL THERAPY AIDE Respiratory Rate 18 10/16/2024 9:51 AM RECREATIONAL THERAPY AIDE Oxygen Saturation 95% 10/16/2024 9:51 AM RECREATIONAL THERAPY AIDE Inhaled Oxygen Concentration - - Weight 77.1 kg (170 lb) 10/16/2024 8:25 AM RECREATIONAL THERAPY AIDE Height 175.3 cm (5' 9 ) 10/16/2024 8:25 AM RECREATIONAL THERAPY AIDE Body Mass Index 25.1 10/16/2024 8:25 AM RECREATIONAL THERAPY AIDE Plan of Treatment Health Maintenance Due Date Last Done Comments Depression Screening 1950 Hepatitis C Screening 1950 Pneumococcal vaccine 65+ (1 of 2 - PCV) 1956 Hepatitis B Screening 1968 Zoster Vaccine (1 of 2) 2000 Well Visit 65+ 2015 Covid-19 Vaccine (2023-2 5 season) 2024 09/21/2023, 09/09/2022, 03/29/2022, Additional history exists Influenza Vaccine (#1) 2024 , 08/17/2022, 08/19/2019, Additional history exists Fall Risk Assessment 10/16/2025 10/16/2024 DTaP/Tdap/Td Vaccine (2 - Td or Tdap) 03/26/2033 03/26/2023 Colon Cancer Screening-Colonoscopy 10/16/2034 10/16/2024, 09/22/2013 Abdominal Aortic Aneurysm (A AA) Screen Completed 01/15/2024, 05/10/2020, 10/16/2019, Additional history exists Colon Cancer Screening-CT Colonography Discontinued 10/16/2024, 09/22/2013 Colon Cancer Screening-DNA Stool Discontinued 10/16/20 24, 09/22/2013 Colon Cancer Screening-FIT Discontinued 10/16/2024, Colon Cancer Screening-Sigmoidoscopy Discontinued 10/16/2024, 09/22/2013 Medical Devices Implanted Type Area Clinical Writer Device Identifier Shelf Expiration Date Model / Serial / Lot [employer] [id number] Viabahn 9mm 9fr 15cm 120cm Iliac Artery Stent Endoprosthesis - [id number] - [id number] Implanted:Qty: 1 on 09/03/2019 by Hernan Hernandez MD at [facility] Stent [employer] [id number] 07/22/2021 [id number] / [id number] / Description:Distal SFA Popli teal Artery [employer] [id number] Viabahn 9mm 9fr 10cm 120cm Delivery System Tip [employer] - [id number] - [id number] Implanted:Qty: 1 on 12/31/2019 by Hernan Hernandez MD at [facility] Stent Right: Leg W[employer] [id number] 06/10/2022 [id number] / [id number] / [employer] Device Vascular Closure Femoral Artery Bioabsorbable Dual Method Vascade 6-7fr Collagen [id number] - S0 - [id number] Implanted:Qty: 1 on 07/25/2024 by Sigifredo Das MD at [facility] Vascular Closure Device [employer] 04/21/2026 [id number] / 0 / [id number] Cordis Mynxgrip 5fr Balloon Catheter Integrate Sealant Lock Latex Free [id number] - S0 - [id number] Implanted:Qty: 1 on 07/25/2024 by Sigifredo Das MD at [facility] Vascular Closure Device [employer] 05/05/2026 [id number] / [id number] / [id number] Procedures Procedure Name Priority Date/Time Associated Diagnosis Comments SURGICAL PATHOLOGY Routine 10/16/2024 8: 57 AM RECREATIONAL THERAPY AIDE 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 (CMS/HCC) (HCC) COLON BIOPSY 10/16/2024 8:41 AM RECREATIONAL THERAPY AIDE 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 (CMS/HCC) (HCC) COLONOSCOPY 10/16/2024 8:40 AM RECREATIONAL THERAPY AIDE CT CHEST WO CONTRAST Schedule Routine, Read Routine (OP Routine) 10/02/2024 12:10 PM RECREATIONAL THERAPY AIDE Malignant neoplasm of lung, unspecified laterality, unspecified part of lung (HCC) TRANSESOPHAGEAL ECHO (CHACHA) W DOPPLER/CF WO CONTRAST Routine 09/08/2024 10:53 AM CDT Other specified pre-operative examination CTA ABDOMINAL AORTA AND BILATERAL ILIOFEMORAL RUNOFF Schedule Routine, Read Routine (OP Routine) 01/15/2024 10:28 AM RECREATIONAL THERAPY AIDE Popliteal artery aneurysm (CMS/HCC) (HCC) from Last 3 Months or Most Recently Relevant to Health Maintenance Results * Surgical pathology (10/16/2024 8:57 AM RECREATIONAL THERAPY AIDE) Tissue (Polyp(s), colon/colorectal, esophageal, gastric) 10/16/2024 8:57 AM RECREATIONAL THERAPY AIDE Tissue (Colon, Biopsy) 10/16/2024 9:05 AM RECREATIONAL THERAPY AIDE Tissue (Colon, Biopsy) 10/16/2024 9:06 AM RECREATIONAL THERAPY AIDE Tissue (Colon, Biopsy) 10/16/2024 9:07 AM RECREATIONAL THERAPY AIDE Tissue (Polyp(s), colon/colorectal, esophageal, gastric) 10/16/2024 9:08 AM RECREATIONAL THERAPY AIDE Narrative PATHOLOGY [facility] - 10/20/2024 1:25 PM RECREATIONAL THERAPY AIDE EPIC results best viewed via link to PDF [facility] [place] [address] Note to Patients: This report may contain [...] FINAL Patient Name: ?? JULIO C ROBERSON JRManuela Gender: ??M : ??1950 (Age: 74) Address: ??[address] [place] [id number] Hospital #: ??[id number] Taken:10/16/2024 Received:10/16/2024 Reported: 10/20/2024 Patient Type: [facility] ?? Service: Gastroenterology Location: Physician(s): ??Mendel Sung M.D. Anat Gramajo M.D. Diagnosis: A. ??Ascending colon, polyp x2, [...] ?? axxm/10/16/2024 15:59 PA(s): Zuly Timmons MS, PA ([facility])CM By this signature, I attest that the above diagnosis is based upon my personal examination of the slides(and/or other material). Addenda/Procedures The performance characteristics of some immunohistochemical stains, fluorescence in-situ hybridization tests and immunophenotyping by flow cytometry cited in this report (if any) were determined by the Surgical Pathology and Flow Cytometry Departments at [facility] as part of an ongoing plant quality manager program and in compliance with federally mandated [...] Surgical Pathology and Flow Cytometry Departments of [facility]. ??It has not been cleared or approved by the U. S. Food and Drug Administration. IMAGES AND SCANNED DOCUMENTS, IF INCLUDED, ONLY VIEWABLE IN PDF VERSION OF REPORT us Mendel Sung MD LAB PATHOLOGY ORDERABLES Fi nal Result PATHOLOGY [facility] 3rd Floor [place], [place] [phone] * Colonoscopy (10/16/2024 8:40 AM RECREATIONAL THERAPY AIDE) Anatomical Region Laterality Modality Other Narrative Procedure Note Mendel Sung MD - 10/16/2024 8:40 AM CST [facility] ENDOSCOPY [facility] Patient Name: Julio C Roberson Procedure Date: 10/16/2024 8:40 AM Date of : 1950 Admit Type: Outpatient Age: 74 Gender: Male Attending MD: Mendel Sung M.D. Room: [facility] ENDOSCOPY ROOM 8 Note Status: Finalized [...] The scope was passed under direct vision.The [id number] endoscope was introduced through the anus and advanced to the cecum, identified by appendiceal orifice and ileocecal valve. The colonoscopy was performed without difficulty. The patient tolerated the procedure well. The qualityof the bowel preparation was evaluated using the BBPS (Rankin Bowel Preparation Scale) with scores of:Right Colon [...] During normal business hours - Please call theNurse Coordinator: [phone]. After hours, evening, nights, weekends and holidays- Please call the hospital roof bolter operator at and ask for the GI fellow solar fabrication technician. Electronically signed by Mendel Sung MD Mendel Sung M.D. 10/16/2024 9:23:20 AM . Number of Addenda: 0 Note Initiated On: 10/16/2024 8:40 AM us Mendel Sung MD ENDOSCOPY PROCEDURES Final Result * CT Chest WO Contrast (10/02/2024 12:10 PM RECREATIONAL THERAPY AIDE) Anatomical Region Laterality Modality Body N/A Computed Tomogra phy 10/02/2024 12:2 0 PM RECREATIONAL THERAPY AIDE Impressions 10/02/2024 12:20 PM RECREATIONAL THERAPY AIDE 1. ??Interval changes of right middle lobectomy [...] José Rich M.D. Narrative 10/02/2024 12:20 PM RECREATIONAL THERAPY AIDE EXAMINATION: ??Computed tomography of the chest without [...] AM CDT Narrative 09/08/2024 5:21 PM CDT [facility] [address] [place] [address] TRANSESOPHAGEAL ECHOCARDIOGRAM Patient Name: JULIO C ROBERSON RAYMOND : 1950 Study Date: 09/08/2024 10:33:44 AM Gender: M Tech: RL Location: CCL Ref Provider: ANAT CONTRERAS ?Height(Cm): 175 BSA: [...] stenosis. Electronically Signed By: Anat Contreras MD [facility] 2024-09-08 17:20:29 CDT Procedure Note Anat Contreras MD - 09/08/2024 [place] [place] [address] TRANSESOPHAGEAL ECHOCARDIOGRAM Patient Name: JULIO C ROBERSON RAYMOND : 1950 Study Date: 09/08/2024 10:33:44 AM Gender: M Tech: Location: [facility] Ref Provider: ANAT CONTRERAS Height(Cm): 175 BSA: [...] stenosis. Electronically Signed By: Anat Contreras MD [facility] 2024-09-08 17:20:29 CDT us Anat Contreras MD CV ECHO PROCEDURES Final R esult * CTA Abdominal Aorta And Bilateral Iliofemoral Runoff (01/15/2024 10:28 AM RECREATIONAL THERAPY AIDE) Anatomical Region Laterality Modality Body Bilateral Computed Tomogra phy 01/15/2024 11:5 2 AM RECREATIONAL THERAPY AIDE Addenda Addendum by Jason Mahan MD on 03/03/2024 3:45 PM CDT Follow up Cardiothoracic Surgery consult and PET/CT done on 02/07/24. Margarita CHAVEZ, RN. Edited by: Margarita Mccabe Electronically signed by: Jason Mahan M.D. Impressions 01/15/2024 1:08 PM RECREATIONAL THERAPY AIDE 1. ??Spiculated soft tissue nodule in the [...] Jason Mahan M.D. Narrative 01/15/2024 1:08 PM RECREATIONAL THERAPY AIDE EXAMINATION: ??CT ANGIOGRAPHY OF THE ABDOMEN, PELVIS, [...] artery aneurysm, unchanged in size relative to 2019. Redemonstrated three-vessel runoff of the left lower extremity with unchanged occlusion of the distal left superficial femoral artery. Recommend follow up of the Incidental lung nodule Additional Imaging less than 1 month with FDG PET/CT or tissue sampling. Dictated by: Lenadro Miller M.D. The radiology attending physician has personally reviewed this study, and had reviewed and/or edited this written report and agrees with it. Electronically signed by: Jason Mahan M.D. Garo Barton MD IMG CT PROCEDURES Edited Resul t - Final from Last 3 Months or Most Recently Relevant to Health Maintenance Insurance MEDICARE [facility] MEDICARE [facility] MEDICARE [facility] Advance Directives For more information, please contact: [phone] Documents on File Type Date Recorded Patient Metalsmith Apprentice Expl anation Power of Securities Consultant 07/25/2024 6:24 AM * Full Code (Latest [...] 4:37 PM 09/04/2019 7:06 PM Care Teams Bond Trader Relationship Specialty Start Date End Date Anat Gramajo MD PCP - General 02/09/17 Hernan Hernandez MD Surgeon Vascular Surgery 09/04/19 Anat Contreras MD [address] [place] [address] Referring Physician Cardiology 07/25/24 Anat Villalpando MD [address] [place] [address] Consulting Physician Cardiothoracic Surgery 07/25/24
== END 2024-12-02 11:05 | disposition home or self-care (01) ==
LOC: ANHLAB 11:09
PROVIDERS: PCP Family Medicine; Visit Provider Internal Medicine Hematology & Oncology
DX: C61 Malignant neoplasm of prostate (principal)
CPT/HCPCS: 36415; 80053; 84153; 84402; 84403; 85025

== ENCOUNTER 2024-12-16 07:51 | Outpatient (CLI) | payer MEDICARE, SELFPAY ==
--- NOTE | ~2024-12-16 | PE_ITS ---
EXAMINATION: PET_PETPSMAST_PT DATE: 12/16/2024 10:07 INDICATION: Prostate cancer TECHNIQUE: 4.988 mCi of Illucix Ga-68([id number]) was administered i.v. Low dose computed arlen graphy (CT) images were acquired from the base of the brain to the base of the brain to the proximal thighs for attenuation correction and anatomic localization. Positron emission tomography (PET) image s were acquired in the same distribution beginning 81 minutes after injection. Images including fused PET/CT images were reconstructed in axial, coronal, and sagittal planes. Automated exposure control technique was employed. The dose-length product was 1015.28mGy-cm. COMPARISON: CT abdomen pelvis dated 06/05/2024 FINDINGS: Head/neck: Typical pattern of symmetric physiologic increased activity in the lacrimal, parotid and submandibula r glands as well as along the mucosa of the nasal and oral cavities, pharynx and hypopharynx. No path ologically enlarged cervical lymphadenopathy or suspicious foci of increased uptake in the visualized head or neck. Chest: Mild emphysema. Postoperative change of prior right middle lobectomy with suture lines associated sca rring along the paramediastinal right upper lobe and along the anterior margin of the right lower lob e. No suspicious pulmonary nodules, pneumonia, pulmonary edema or pleural effusion. Mild cardiomegaly . Atherosclerotic coronary artery calcifications and change of prior median sternotomy and coronary a rtery bypass grafting. Aortic valve calcific location. Thoracic aorta is normal in caliber. Or precar inal lymph node measuring 1.1 cm in maximal diameter with central fatty hilum and no abnormal PSMA up take. No other pathologically enlarged or PSMA avid thoracic lymphadenopathy. Abdomen/pelvis/proximal thighs: Physiologic renal accumulation and excretion of activity in the kidneys, bladder and along portions o f ureters. There is heterogeneous uptake throughout the enlarged prostate most prominent at the left side of the gland with maximal SUV of 9.2 All consistent with primary prostate cancer. There is mild uptake extending to the left and right sukhdeep inal vesicles with maximal SUV values of 5.8 on the right and 5.7 on the left suspicious for local in vasion. There are couple PSA may avid lymph nodes in the left pelvis, the larger measuring approximately 1 cm but difficult to distinguish from the adjacent left external iliac artery and vein with maximal SUV of 14.5 and a smaller and more posterior approximately 5 mm left internal iliac chain lymph node with maximal SUV of 10.2 which are suspicious for metastatic disease. There are multiple additional more normal size is mildly enlarged PSA may avid lymph nodes and retroperitoneal lymph nodes extending cep halad the right common iliac chains all as well as inferior lymph nodes are extending above level of the renal arteries. For reference a left 1.4 x 1.26 m (lymph node demonstrates maximal SUV of 18. Normal degree and slightly heterogenous pattern of increased uptake throughout the liver and spleen w ithout radiologic correlate or dominant PSMA avid lesion. Multiple calcified gallstones in the depend ent aspect of the normal-appearing gallbladder. The pancreas and bilateral adrenal glands are normal. Moderate uptake scattered throughout the bowels with typical duodenal and proximal jejunal predomina nce and without radiologic correlate, also likely physiologic. Musculoskeletal: There are multiple likely metastatic PSMA avid bone lesions throughout the axial and appendicular ske leton, many of which are occult on CT but several with subtle corresponding sclerosis. One of the lar gest occupying the majority of the T10 vertebral body with corresponding sclerosis demonstrates maxim al SUV of 23.1. IMPRESSION: 1. Heterogeneous increased PSMA uptake in the prostate consistent with primary prostate cancer with s uspicion for local invasion into the bilateral seminal vesicles. 2. Multiple PSMA avid bone lesions and PSMA avid lymph nodes in the abdomen and pelvis consistent wit h metastatic disease. 3. Cholelithiasis. Reviewed, dictated and finalized at location A. IBILITY SPECIALIST IMPRESSION: 1. Heterogeneous increased PSMA uptake in the prostate consistent with primary prostate cancer with suspicion for local invasion into the bilateral seminal ve sicles. 2. Multiple PSMA avid bone lesions and PSMA avid lymph nodes in the abdomen and pelvis consistent with metastatic disease. 3. Cholelithiasis.
== END 2024-12-16 07:52 | disposition home or self-care (01) ==
LOC: ANHIMG 07:54
PROVIDERS: PCP Family Medicine; Visit Provider Internal Medicine Hematology & Oncology
DX: C61 Malignant neoplasm of prostate (principal); K80.20 Calculus of gallbladder without cholecystitis without obstruction
CPT/HCPCS: 78815; A9596

== ENCOUNTER 2024-12-18 11:10 | Outpatient (CLI) | payer MEDICARE, SELFPAY ==
--- OUTSIDE RECORDS SUMMARY | 2024-12-18 11:37 | XMS_ITS | Patient Health Summary ---
Author Organization [facility] Address [address] [place] [address] Care Team Providers Care Millwright Instructor Name Role Phone Maykel Gramajo MD Primary Care Provider [phone]- [phone] Note from [facility],non-owned Affiliates and Associated Physician Practices is amultiple site organization consisting of ambulatory clinics and hospital sitesin [place], [place], [place]. This disclosure is being madepursuant to the Care Everywhere program and may not contain all information available regarding this patient. Last updated 18.[facility] Allergies * Lactose(GI Discomfort) -Low Criticality Medications [...] artery 08/19/2019 Coronary artery disease invo lving [place] coronary artery of [place] heart without angina pectoris 03/28/2018 Hyperlipidemia 03/28/2018 [...] 74 05/18/2021 3:03 PM CDT Temperature 36.5 C (97.7 F) 05/18/2021 2:48 PM CDT Respiratory Rate 18 05/18/2021 3:03 PM CDT Oxygen Saturation 99% 05/18/2021 3:03 PM CDT Inhaled Oxygen Concentration - - Weight 88.5 kg (195 lb) 05/12/2021 2:14 PM CDT Height 175.3 cm (5' 9 ) 05/12/2021 2:14 PM CDT Body Mass Index 28.8 05/12/2021 2:14 PM CDT Medical Devices Implanted Type Area Security Systems Installer Device Identifier Shelf Expiration Date Model / Serial / Lot Lens Iol 0 D +22.5 [employer] Mod L Acrsf Iq - [id number] Implanted:Qty: 1 on 02/23/2021 by Hernan Hansen MD at [facility] Right: [employer] 06/21/2023 [id number] / [id number] / Lens Iol 0 D +28.0 [employer] Mod L Acrsf Iq - [id number] Implanted:Qty: 1 on 05/18/2021 by Hernan Hansen MD at [facility] Left: [employer] 11/22/2023 [id number] / [id number] / Procedures * EXTRACTION CATARACT WITH [...] PROFILE(Performed 10/03/2014) * GLUCOSE VITALITY(Performed 10/03/2014) * [facility]Performed 08/30/2013) * GLUCOSE VITALITY(Performed 08/30/2013) * GLUCOSE(Performed [...] - 115 mg/dL 08/22/2018 10:23 AM CDT [facility] Blood BLOOD SPECIMEN / Unknown Lab Venipuncture / Unknown 08/22/2018 7:20 AM CDT 08/22/2018 9:54 AM CDT Ordering Provider Unlisted LAB - CHEM ISTRY ORDERABLES Performing Organization Address City/State/[facility] Co de Phone Number [address] [phone] * HEMOGLOBIN A1C (08/22/2018 7:20 AM CDT) Only the most recent of5 resultswithin the time period is included. Hemoglobin A1c 5.8 4.4 - 6.3 % 08/22/2018 11:58 AM CDT [facility] Estimated Average Glucose 120 mg/dL 08/22/2018 11:58 AM CDT [facility] Comment: HbA1c Interpretation: Treatment target values recommended by ADA and other clinical organizations should be used to evaluate metabolic control in patients. Treatment Target Values: Normal : < 5.7% Pre-diabetes: 5.7-6.4% Diabetes: Equal to or greater than 6.5% Reference: [place] [employer] Standards of Care in Diabetes -2014 In patients 70 years and older consider HbA1c target range of 7.0-7.5% Reference: Diabetes Mellitus in Older People: Position Statement on behalf of the International Association of Gerontology and Geriatrics (IAGG), the Diabetes Working Democrat for Older People (EDWPOP), and the International Task Force of Experts in Diabetes. Pj Brandon et al. J [place] [employer]. 2012 Test results diagnostic [...] - CHEM ISTRY ORDERABLES Performing Organization Address [facility]/State/[facility] Co de Phone Number [address] [phone] * (ABNORMAL) LIPID PROFILE (08/22/2018 7:20 AM CDT) Only the most recent of5 resultswithin the time period is included. Cholesterol Total 93 <200 mg/dL 08/22/2018 10:49 AM [facility] HDL 32(L) >40 mg/dL 08/22/2018 10:49 AM [facility] Comment: ATP III Classification of HDL Cholesterol: <40 mg/dL: Considered a major risk factor. >60 mg/dL: Considered a negative risk factor. LDL Calculated 36 <100 mg/dL 08/22/2018 10:49 AM [facility] Comment: ATP III Classification of LDL Cholesterol: <100 mg/dL: Optimal 100 - 129 mg/dL: Near Optimal/Above Optimal 130 - 159 mg/dL: Borderline High 160 - 189 mg/dL: High >190 mg/dL: Very High Triglycerides 125 <150 mg/dL 08/22/2018 10:49 AM [facility] Comment: ATP III Classification of Triglycerides: <150 mg/dL: Normal 150 - 199 mg/dL: Borderline High 200 - 400 mg/dL: High >500 mg/dL: Very High Blood BLOOD SPECIMEN / Unknown Lab Venipuncture / Unknown 08/22/2018 7:20 AM CDT 08/22/2018 9:54 AM CDT Ordering Provider Unlisted LAB - CHEM ISTRY ORDERABLES Performing Organization Address [facility]/ZIP Co de Phone Number [facility] [address] [phone] * VITALITY SCREEN (BEAKER) (08/16/2017 7:28 AM CDT) Only the most recent of4 resultswithin the time period is included. Blood specimen (specimen) BLOOD SPECIMEN / Unknown 08/16/2017 7:28 AM CDT Narrative [facility] - 08/16/2017 12:49 PM CDT The following orders were created for panel order [facility] Vitality Screening. Procedure Abnormality Status --------- ------ Hemoglobin A1c[[id number]] Final result Fasting Glucose[[id number]] Normal Final result Lipid Panel[[id number]] Abnormal Final result Please view results for these tests on the individual orders. Historical Provider LAB - CHEMISTRY O MARLONERALAWSON Performing Organization Address City/[facility]/ZIP Co de Phone Number [facility] [address] * (ABNORMAL) [facility] (08/30/2013 8:23 AM CDT) Cholesterol Total 133 <200 mg/dL [facility] HDL 35(L) > OR = 40 mg/dL [facility] Comment: ATP III classification of HDL cholesterol: <40 mg/dL Low; considered a major risk factor >60 mg/dL High; considered a negative risk factor Triglycerides 171(H) <150 mg/dL [facility] Comment: ATP III classification of Triglycerides: < 150 mg/dL Normal triglycerides 150-199 mg/dL Borderline-high triglycerides 200-400 mg/dL High triglycerides > 500 mg/dL Very high triglycerides LDL Calculated 64 0 - 100 mg/dL [facility] Comment: ATP III classification of LDL cholesterol: <100 mg/dL Optimal 100-129 Near optimal/above optimal 130-159 Borderline high 160-189 High >190 Very high Hemoglobin A1c 5.4 4.4 - 6.3 % [facility] Estimated Average Glucose 108 mg/dL [facility] 08/30/2013 8:23 AM CDT 08/30/2013 9:48 AM CDT Historical Provider LAB - CHEMISTRY O JOAQUÍN [address] [phone] * GLUCOSE (08/24/2012 8:32 AM CDT) Glucose 99 70 - 115 mg/dL [facility] 08/24/2012 8:32 AM CDT 08/27/2012 7:58 AM CDT Historical Provider LAB - CHEMISTRY O JOAQUÍN Performing Organization Address City/[facility]/ZIP Co de Phone Number [address] [phone] * CHOLESTEROL BLOOD (08/24/2012 8:32 AM CDT) Cholesterol Total 144 <200 mg/dL [facility] 08/24/2012 8:32 AM CDT 08/27/2012 7:58 AM CDT Historical Provider LAB - CHEMISTRY O JOAQUÍN [address] [phone] Care Teams Millwright Instructor Relationship Specialty Start Date End Date Maykel Gramajo MD [address] [place] [phone] PCP - General 07/28/20
--- OUTSIDE RECORDS SUMMARY | 2024-12-18 11:37 | XMS_ITS | Referral Summary ---
Author Organization [facility] Address [address] [facility] [place] [address] Care Team Providers Care Financial Aid Manager Name Role Phone Maykel Gramajo MD Primary Care Provider [phone]- [phone] Source Comments [facility],non-owned Affiliates and Associated Physician Practices is amultiple site organization consisting of ambulatory clinics and hospital sitesin [place], [place], [place] and [place]. This disclosure is being madepursuant to the Care Everywhere program and may not contain all information available regarding this patient. 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 Unfortunately, he had an effective distal endoleak, and his stenting was extended into his popliteal artery on 12/31/19. 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 - S/p 06/11 right SFA angiogram; failed recanalization - Continue asa - Restart xarelto tomorrow - Flat x 4 hours post op then Up as tolerated - ADAT - Admit overnight 12/14 no ride - Plan for left leg bypass at some point in the future Coronary artery disease invo lving [place] coronary artery of [place] heart without angina pectoris 03/28/2018 Overview (01/24/2021): [...] on file Medical Devices Implanted Type Area Glue Maker Device Identifier Shelf Expiration Date Model / Serial / Lot Lens Iol 0 D +22.5 [employer] Mod L Acrsf Iq - [id number] Implanted:Qty: 1 on 02/23/2021 by Hernan Hansen MD at [facility] Right: [employer] 06/21/2023 [id number] / [id number] / Lens Iol 0 D +28.0 [employer] Mod [employer] Acrsf Iq - [id number] Implanted:Qty: 1 on 05/18/2021 by Hernan Hansen MD at [facility] Left: [employer] 11/22/2023 [id number] / [id number] / Care Teams Financial Aid Manager Relationship Specialty Start Date End Date Maykel Gramajo MD [address] [place] [phone] [facility] - General 07/28/20
--- OUTSIDE RECORDS SUMMARY | 2024-12-18 11:37 | XMS_ITS | Encounter Summary ---
Author Organization [facility] Address [address] [place] [address] Care Team Providers Care Licensed Vocational Nurse Name Role Phone Maykel Gramajo MD Primary Care Provider [phone]- [phone] Encounter Details Date Type Department Care Team (Late st Contact Info) Description 08/19/2018 Lab Requisition [facility] [address] [place] [id number] Unlisted, Ordering Provider, Social History Tobacco Use [...] - 6.3 % 08/22/2018 11:58 AM CDT [facility] Estimated Average Glucose 120 mg/dL 08/22/2018 11:58 AM CDT [facility] Comment: HbA1c Interpretation: Treatment target values recommended by ADA and other clinical organizations should be used to evaluate metabolic control in patients. Treatment Target Values: Normal : < 5.7% Pre-diabetes: 5.7-6.4% Diabetes: Equal to or greater than 6.5% Reference: [place] Diabetes Association Standards of Care in Diabetes -2014 In patients 70 years and older consider HbA1c target range of 7.0-7.5% Reference: Diabetes Mellitus in Older People: Position Statement on behalf of the International Association of Gerontology and Geriatrics (IAGG), the Diabetes Working Constitution Party for Older People (EDWPOP), and the International Task Force of Experts in Diabetes. Pj Brandon, et al. J [place] [employer] Association. 2012 Test results diagnostic [...] - CHEM ISTRY ORDERABLES Performing Organization Address City/State/[facility] Co de Phone Number [address] [phone] * (ABNORMAL) LIPID PROFILE (08/22/2018 7:20 AM CDT) [facility] Signature Cholesterol Total 93 <200 mg/dL 08/22/2018 10:49 AM [facility] HDL 32(L) >40 mg/dL 08/22/2018 10:49 AM [facility] Comment: ATP III Classification of HDL Cholesterol: <40 mg/dL: Considered a major risk factor. >60 mg/dL: Considered a negative risk factor. LDL Calculated 36 <100 mg/dL 08/22/2018 10:49 AM [facility] Comment: ATP III Classification of LDL Cholesterol: <100 mg/dL: Optimal 100 - 129 mg/dL: Near Optimal/Above Optimal 130 - 159 mg/dL: Borderline High 160 - 189 mg/dL: High >190 mg/dL: Very High Triglycerides 125 <150 mg/dL 08/22/2018 10:49 AM CDT [facility] Comment: ATP III Classification of Triglycerides: <150 mg/dL: Normal 150 - 199 mg/dL: Borderline High 200 - 400 mg/dL: High >500 mg/dL: Very High Blood BLOOD SPECIMEN / Unknown Lab Venipuncture / Unknown 08/22/2018 7:20 AM CDT 08/22/2018 9:54 AM CDT Ordering Provider Unlisted LAB - CHEM ISTRY ORDERABLES [address] [phone] * GLUCOSE VITALITY (08/22/2018 7:20 AM CDT) Glucose 101 70 - 115 mg/dL 08/22/2018 10:23 AM CDT [facility] Blood BLOOD SPECIMEN / Unknown Lab Venipuncture / Unknown 08/22/2018 7:20 AM CDT 08/22/2018 9:54 AM CDT Ordering Provider Unlisted LAB - CHEM ISTRY ORDERABLES [address] [phone] documented in this encounter Visit Diagnoses Not on filedocumented in this encounter Care Teams Licensed Vocational Nurse Relationship Specialty Start Date End Date Maykel Gramajo MD [address] [place] [phone] PCP - General 07/28/20 documented as of this encounter
--- OUTSIDE RECORDS SUMMARY | 2024-12-18 11:37 | XMS_ITS | Referral Summary ---
Author Organization [facility] Address [address] [place] [address] Care Team Providers Care Grain Farmworker Name Role Phone Maykel Gramajo MD Primary Care Provider [phone] Hernan Hernandez MD Unavailable [phone] Maykel Ramires MD Unavailable [phone] Maykel Villalpando MD Unavailable Encounters Date Type Department Care Team Description 10/16/2024 8:45 AM MANAGER OPERATIONS - 10/16/2024 9:30 AM MANAGER OPERATIONS Surgery [facility] Digestive Disease [address] [address] Mendel Sung MD COLON BIOPSY 10/16/2024 8:41 AM MANAGER OPERATIONS Anesthesia Event [facility] Digestive Disease [address] [address] Tomasz Maharaj MD 10/16/2024 7:34 AM MANAGER OPERATIONS - 10/16/2024 10:09 AM MANAGER OPERATIONS Hospital Encounter [facility] Digestive Disease [address] [address] Mendel Sung MD 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 (CMS/HCC) (HCC) Discharge Disposition: Discharge to home or self care 10/15/2024 Telephone [facility] Gastroenterology [address] [place] [address] for Advanced Medicine 12th [place] [address] [place] [id number] Melly Frazier RMA 10/13/2024 Telephone [facility] Specialty Services [address] [place] [address] Zandra John, RN GI PROCEDURE 3 DAY PRE CALL 10/02/2024 Orders Only [facility] Surgery [address] [facility] Floor 5 [place] [address] Rita Griffith, JASON Malignant neoplasm of lung, unspecified laterality, unspecified part of lung (HCC) (Primary Dx) 10/02/2024 11:47 AM MANAGER OPERATIONS - 10/02/2024 11:59 PM MANAGER OPERATIONS Hospital Encounter [facility] [address] [place] [address] Jeremy Shane MD Malignant neoplasm of lung, unspecified laterality, unspecified part of lung (HCC) Discharge Disposition: Discharge to home or self care 10/02/2024 1:45 PM MANAGER OPERATIONS Office Visit [facility] Surgery [address] [facility] [address] [place] [address] Jeremy Shane MD Malignant neoplasm of lung, unspecified laterality, unspecified part of lung (HCC) (Primary Dx) 10/01/2024 Telephone [facility] Surgery [address] [place] [address] Familia Griffith RMA from Last 3 Months Allergies Active Allergy [...] route every day in the evening 0 12/01/20 12 Active fenofibrate (TRIGLIDE) 160 mg tablet [...] total) by mouth daily 270 tablet 1 08/10/31 Discontinued Active Problems Patient Care Coordination No te Formatting of this note migh t be different from the original. Referring provider: Dr. Maykel Gramajo Mr. Julio C Roberson is a [...] to consider that. 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 Overview (12/09/2019): Added automatically from request for surgery [id number] Assessment & Plan (06/11/2020 5:49 PM CDT): - S/p status post self-expanding covered stent (Hopkins Viabahn 9 x 150 mm) placement to [...] History of epistaxis 08/21/2019 Popliteal artery aneurysm ([facility]) 08/19/2019 Overview (08/19/2019): Added automatically from request for surgery [id number] Coronary artery disease of n ative artery of [place] heart with stable angina pectoris ([facility]) 03/28/2018 Assessment & Plan (03/17/2024 9:27 AM [...] false-positive. Assessment & Plan (10/18/2020 5:19 PM MANAGER OPERATIONS): No symptoms of myocardial ischemia, albeit with [...] made. Assessment & Plan (10/18/2020 5:19 PM MANAGER OPERATIONS): He is on chronic lipid-lowering therapy. No [...] control. No changes made. Chronic ulcerative pancolitis ([facility]) 04/20/20 11 Immunizations Name Administration Dates Next [...] on file Legal Sex Male 7:01 PM MANAGER OPERATIONS Gender Identity Not on file Sexual Orientation Not on file Last Filed Vital Signs Vital Sign Reading Time Taken Comments Blood Pressure 143/83 10/16/2024 9:51 AM MANAGER OPERATIONS Pulse 87 10/16/2024 9:51 AM MANAGER OPERATIONS Temperature 36 C (96.8 F) 10/16/2024 9:21 AM MANAGER OPERATIONS Respiratory Rate 18 10/16/2024 9:51 AM MANAGER OPERATIONS Oxygen Saturation 95% 10/16/2024 9:51 AM MANAGER OPERATIONS Inhaled Oxygen Concentration - - Weight 77.1 kg (170 lb) 10/16/2024 8:25 AM MANAGER OPERATIONS Height 175.3 cm (5' 9 ) 10/16/2024 8:25 AM MANAGER OPERATIONS Body Mass Index 25.1 10/16/2024 8:25 AM MANAGER OPERATIONS Plan of Treatment Not on file Medical Devices Implanted Type Area Undercutter Device Identifier Shelf Expiration Date Model / Serial / Lot Wl [employer] [id number] Viabahn 9mm 9fr 15cm 120cm Iliac Artery Stent Endoprosthesis - [id number] - [id number] Implanted:Qty: 1 on 09/03/2019 by Hernan Hernandez MD at [facility] Stent W[employer] [id number] 07/22/2021 [id number] / [id number] / Description:Distal SFA Popli teal Artery [employer] [id number] Viabahn 9mm 9fr 10cm 120cm Delivery System Tip [employer] - [id number] - [id number] Implanted:Qty: 1 on 12/31/2019 by Hernan Hernandez MD at [facility] Stent Right: Leg W[employer] [id number] 06/10/2022 [id number] / [id number] / [employer] Device Vascular Closure Femoral Artery Bioabsorbable Dual Method Vascade 6-7fr Collagen [id number] - S0 - [id number] Implanted:Qty: 1 on 07/25/2024 by Sigifredo Das MD at [facility] Vascular Closure Device [employer] 04/21/2026 [id number] / 0 / [id number] Cordis Mynxgrip 5fr Balloon Catheter Integrate Sealant Lock Latex Free [id number] - S0 - [id number] Implanted:Qty: 1 on 07/25/2024 by Sigifredo Das MD at [facility] Vascular Closure Device [employer] 05/05/2026 [id number] / [id number] / [id number] Procedures Procedure Name Priority Date/Time Associated Diagnosis Comments SURGICAL PATHOLOGY Routine 10/16/2024 8: 57 AM MANAGER OPERATIONS 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 (CMS/HCC) (HCC) COLON BIOPSY 10/16/2024 8:41 AM MANAGER OPERATIONS 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 (CMS/HCC) (HCC) COLONOSCOPY 10/16/2024 8:[address] CHEST WO CONTRAST Schedule Routine, Read Routine (OP Routine) 10/02/2024 12:10 PM MANAGER OPERATIONS Malignant neoplasm of lung, unspecified laterality, unspecified part of lung (HCC) CTA ABDOMINAL AORTA AND BILATERAL ILIOFEMORAL RUNOFF Schedule Routine, Read Routine (OP Routine) 01/15/2024 10:28 AM MANAGER OPERATIONS Popliteal artery aneurysm (CMS/HCC) (HCC) from Last 3 Months or Most Recently Relevant to Health Maintenance Results * Surgical pathology (10/16/2024 8:57 AM MANAGER OPERATIONS) Tissue (Polyp(s), colon/colorectal, esophageal, gastric) 10/16/2024 8:57 AM MANAGER OPERATIONS Tissue (Colon, Biopsy) 10/16/2024 9:05 AM MANAGER OPERATIONS Tissue (Colon, Biopsy) 10/16/2024 9:06 AM MANAGER OPERATIONS Tissue (Colon, Biopsy) 10/16/2024 9:07 AM MANAGER OPERATIONS Tissue (Polyp(s), colon/colorectal, esophageal, gastric) 10/16/2024 9:08 AM MANAGER OPERATIONS Narrative PATHOLOGY [facility] - 10/20/2024 1:25 PM MANAGER OPERATIONS [facility] results best viewed via link to PDF [facility] [place] [address] Note to Patients: This report may contain [...] details. SURGICAL PATHOLOGY REPORT FINAL Patient Name: JULIO C ROBERSON JR. Gender: Rashaun : 1950 (Age: 74) Address: [address] [place], [place] [address] Hospital #: [id number] Taken:10/16/2024 Received:10/16/2024 Reported: 10/20/2024 [facility] Service: Gastroenterology Location: Physician(s): Anil Bhat M.D. Diagnosis: A. Ascending colon, polyp x2, biopsy - Inflammatory polyp - Negative for granuloma and dysplasia B. Sigmoid colon, biopsy - Normal colonic mucosa - Negative for granuloma and dysplasia C. Rectum, biopsy - Normal colonic mucosa - Negative for granuloma and dysplasia D. Large bowel, anastomosis blind end, biopsy - Colonic mucosa with severely active chronic colitis - CMV immunostain is negative for viral inclusions - Negative for granuloma and dysplasia E. Colon, mass, biopsy - Colonic mucosa with marked chronic active inflammation, ulceration, focal dense fibrosis - CMV immunostain is negative for viral inclusions - Negative for granuloma and dysplasia - Negative for malignancy; see comment clma/10/20/2024 09:18 By this signature, I attest that the above diagnosis is based upon my personal examination of the slides(and/or other material indicated in the diagnosis). Robby Florentino MD Report Electronically Reviewed and Signed Out By Robby Florentino MD 10/20/2024 13:25:12 Diagnosis Comment The history of ulcerative colitis is noted. E. The clinical impression of a mass is noted. Sampling error may be a factor. If clinical concern persists, rebiopsy may be indicated. History: The patient is a 74-year-old man with ulcerative chronic pancolitis without complications. Operative Procedure: Colonoscopy with biopsies Specimen(s) Received: A: Ascending colon polyp x2 removed w/cold forceps B: Sigmoid colon bxs taken w/cold forceps C: Rectal bxs taken w/cold forceps D: Anastomosis blind end bxs taken w/cold forceps E: Colon mass bxs taken w/cold forceps Gross Description: Received in five formalin jars labeled with the patient's identifiers. A. Labeled ascending colon polyp x2 removed w/ cold forceps are three yellow-cuellar polypoid tissue fragments ranging from 0.3-0.4 cm in greatest dimension and measuring 0.7 x 0.4 x 0.1 cm in aggregate. Labeled A1. Jar 0. B. Labeled sigmoid colon biopsies taken w/ cold forceps are two yellow-cuellar irregular tissue fragment(s) (measuring 0.3 and 0.4 cm in greatest dimension). Labeled B1. Jar 0. C. Labeled rectal biopsies taken w/ cold forceps are two cuellar-red irregular tissue fragment(s) (measuring 0.3 cm in greatest dimension each). Labeled C1. Jar 0. D. Labeled anastomosis blind end biopsies taken w/ cold forceps are two yellow- red irregular tissue fragment(s) (measuring 0.3 cm each in greatest dimension). Labeled D1. Jar 0. E. Labeled cold mass biopsies taken w/ cold forceps are multiple yellow-cuellar irregular tissue fragment(s) (measuring 0.7 x 0.5 x 0.1 cm in aggregate). Labeled E1. Jar 0. axxm/10/16/2024 15:59 PA(s): Zuly Timmons MS, CLARE ([facility])CM By this signature, I attest that the above diagnosis is based upon my personal examination of the slides(and/or other material). Addenda/Procedures The performance characteristics of some immunohistochemical stains, fluorescence in-situ hybridization tests and immunophenotyping by flow cytometry cited in this report (if any) were determined by the Surgical Pathology and Flow Cytometry Departments at [facility] as part of an ongoing water quality technician program and in compliance with federally mandated regulations drawn from the Clinical Laboratory Improvement Act of 1988 (CLIA '88). Some of these tests rely on the use of analyte specific reagents and are subject to specific labeling requirements by the US Food and Drug Administration. Such diagnostic tests may only be performed in a facility that is certified by the Department of Health and Human Services as a high complexity laboratory under CLIA '88. The FDA has determined that such clearance or approval is not necessary. This test is used for clinical purposes. It should not be regarded as investigational or for research. Nevertheless, federal rules concerning the medical use of analyte specific reagents require that the following disclaimer be attached to the report: This test was developed and its performance characteristics determined by the Surgical Pathology and Flow Cytometry Departments of [facility]. It has not been cleared or approved by the U. S. Food and Drug Administration. IMAGES AND SCANNED DOCUMENTS, IF INCLUDED, ONLY VIEWABLE IN PDF VERSION OF REPORT us Mendel Sung MD LAB PATHOLOGY ORDERABLES [facility] Result PATHOLOGY [facility] 3rd Floor [place], [place] [phone] * Colonoscopy (10/16/2024 8:40 AM MANAGER OPERATIONS) Anatomical Region Laterality Modality Other Narrative Procedure Note Mendel Sung MD - 10/16/2024 8:40 AM CST GI ENDOSCOPY [facility] Patient Name: Julio C Roberson Procedure Date: 10/16/2024 8:40 AM Date of : 1950 Admit Type: Outpatient Age: 74 Gender: Male Attending MD: Mendel Sung M.D. Room: [facility] ENDOSCOPY ROOM 8 Note Status: Finalized Procedure: Colonoscopy Indications: Family history of colon cancer in a first-degree relative before age 60 years, Last colonoscopy: September 2013, Abnormal PET scan of the GI tract,on Lialda Referring MD: Maykel Gramajo M.D. Providers: Mendel Sugn M.D. Medicines: Monitored Anesthesia Care Complications: No [...] The scope was passed under direct vision.The [id number] endoscope was introduced through the anus and advanced to the cecum, identified by appendiceal orifice and ileocecal valve. The colonoscopy was performed without difficulty. The patient tolerated the procedure well. The qualityof the bowel preparation was evaluated using the BBPS ([place] Bowel Preparation Scale) with scores of:Right Colon [...] During normal business hours - [facility] Coordinator: [phone]. After hours, evening, nights, weekends and holidays- Please call the hospital warehouse forklift operator at and ask for the GI fellow pest control operator. Electronically signed by Mendel Sung MD Mendel Snug M.D. 10/16/2024 9:23:20 AM . Number of Addenda: 0 Note Initiated On: 10/16/2024 8:40 AM us Mendel Sung MD ENDOSCOPY PROCEDURES Final Result * CT Chest WO Contrast (10/02/2024 12:10 PM MANAGER OPERATIONS) Anatomical Region Laterality Modality Body N/A Computed Tomogra phy 10/02/2024 12:2 0 PM MANAGER OPERATIONS Impressions 10/02/2024 12:20 PM MANAGER OPERATIONS 1. Interval changes of right middle lobectomy [...] José Rich M.D. Narrative 10/02/2024 12:20 PM MANAGER OPERATIONS EXAMINATION: Computed tomography of the chest without [...] node. Electronically signed by: José Rich M.D. Jeremy Shane MD IMG CT PROCEDURES Catia l Result * CTA Abdominal Aorta And Bilateral Iliofemoral Runoff (01/15/2024 10:28 AM MANAGER OPERATIONS) Anatomical Region Laterality Modality Body Bilateral Computed Tomogra phy 01/15/2024 11:5 2 AM MANAGER OPERATIONS Addenda Addendum by Jason Mahan MD on 03/03/2024 3:45 PM CDT Follow up Cardiothoracic Surgery consult and PET/CT done on 02/07/24. Margarita CHAVEZ, RN. Edited by: Margarita Mccabe Electronically signed by: Jason Mahan M.D. Impressions 01/15/2024 1:08 PM MANAGER OPERATIONS 1. Spiculated soft tissue nodule in the [...] Jason Mahan M.D. Narrative 01/15/2024 1:08 PM MANAGER OPERATIONS EXAMINATION: CT ANGIOGRAPHY OF THE ABDOMEN, PELVIS, [...] or pelvic lymphadenopathy. No suspicious osseous lesions. Procedure Note Jason Mahan [...] by: Jason Mahan M.D. Garo Barton MD [facility] CT PROCEDURES Edited Resul t - Final from Last 3 Months or Most Recently Relevant to Health Maintenance Insurance MEDICARE [facility] MEDICARE [facility] MEDICARE AARP Advance Directives For more information, please contact: [phone] Documents on File Type Date Recorded Patient Mover Helper Expl anation Power of Senior Corporate Accountant 07/25/2024 6:24 AM * Full Code (Latest [...] 4:37 PM 09/04/2019 7:06 PM Care Teams Grain Farmworker Relationship Specialty Start Date End Date Maykel Gramajo MD PCP - General 02/09/17 Hernan Hernandez MD Surgeon Vascular Surgery 09/04/19 Maykel Ramires MD [address] [place] [address] Referring Physician Cardiology 07/25/24 Maykel Villalpando MD [address] [place] [address] Consulting Physician Cardiothoracic Surgery 07/25/24
--- OUTSIDE RECORDS SUMMARY | 2024-12-18 11:37 | XMS_ITS | Continuity of Care Document ---
Author Organization [facility] Address [address] [place] [address] Phone Care Team Providers Care Sales Utility Representative Name Role Phone Denis Cash Unavailable Unavailable Procedures Procedure Date Eye Exam & Treatment Refraction Advance Directives Directive Yes / No Effective Date File Name No Information Encounters Encounter Description Practice Location Reason(s) For Visit Diagnoses Date Provider Providers Copied on Encounter [facility], [address], [place], [place], [id number], [place] tel:[phone] [facility] No Information 0 Shailesh Barrios. [address] [facility] [address] [place], [address], [place]. tel:[phone] Family History Family Member Type Diagnosis Age At Onset No Information Payers Payer name Insurance type Covered alliance party ID Authoriza titerell(s) [facility] Commercial CI [id number] Social History Type Description Quantity Date Captured [...]
--- OUTSIDE RECORDS SUMMARY | 2024-12-18 11:37 | XMS_ITS | Clinical Summary ---
Author Organization [facility] Address [address] [facility] [place] [address] Care Team Providers Care Criminal Justice Faculty Name Role Phone Maykel Gramajo MD Primary Care Provider [phone] Source Comments [facility],non-owned Affiliates and Associated Physician Practices is amultiple site organization consisting of ambulatory clinics and hospital sitesin [place], [place], [place] and [place]. This disclosure is being madepursuant to the Care Everywhere program and may not contain all information available regarding this patient. Last updated 18.[facility] Allergies Active Allergy Reactions Criticality Noted Date [...] (01/24/2021): Added automatically from request for surgery [id number] Chronic rhinitis 08/21/2019 History of epistaxis 08/21/2019 Aneurysm of popliteal artery 08/19/2019 Overview (01/24/2021): Added automatically from request for surgery [id number] Added automatically from request for surgery [id number] Last Assessment & Plan: - S/p status post self-expanding covered stent ([place] Viabahn 9 x 150 mm) placement to [...] the future Coronary artery disease invo lving craig coronary artery of craig heart without angina pectoris 03/28/2018 Overview (01/24/2021): [...] - COLON CA SCREENING 1950 MEDICARE AWV 12 MONTHS 1950 HEPATITIS C SCREENING 05/08/1968 [...] this topic Medical Devices Implanted Type Area Silk Printer Device Identifier Shelf Expiration Date Model / Serial / Lot Lens Iol 0 D +22.5 [employer] Mod [employer]rs[employer] Iq - [id number] Implanted:Qty: 1 on 02/23/2021 by Hernan Hansen MD at [facility] Right: [employer] 06/21/2023 [id number] / [id number] / Lens Iol 0 D +28.0 Ovidio Mod L Acrsf Iq - [id number] Implanted:Qty: 1 on 05/18/2021 by Hernan Hansen MD at [facility] Left: [employer] 11/22/2023 [id number] / [id number] / Care Teams Criminal Justice Faculty Relationship Specialty Start Date End Date Maykel Gramajo MD [address] [place] [address] PCP - General 07/28/20
--- OUTSIDE RECORDS SUMMARY | 2024-12-18 11:38 | XMS_ITS | Clinical Summary ---
Author Organization [facility] Address [address] [place] [address] Care Team Providers Care Therapy Assistant Name Role Phone Maykel Gramajo MD Primary Care Provider [phone] Hernan Hernandez MD Unavailable [phone] Maykel Ramires MD Unavailable [phone] Maykel Villalpando MD Unavailable Allergies Active Allergy Reactions Criticality Noted Date [...] to consider that. PAD (peripheral artery disease) ([facility]) 2019 Overview (05/25/2020): Added automatically from request for surgery [id number] Popliteal artery aneurysm, bilateral 12/09/2019 Overview (12/09/2019): Added automatically from request for surgery [id number] Assessment & Plan (06/11/2020 5:49 PM CDT): - S/p status post self-expanding covered stent ([place] Viabahn 9 x 150 mm) placement to [...] History of epistaxis 08/21/2019 Popliteal artery aneurysm ([facility]) 08/19/2019 Overview (08/19/2019): Added automatically from request for surgery [id number] Coronary artery disease of n ative artery of [place] heart with stable angina pectoris ([facility]) 03/28/2018 Assessment & Plan (03/17/2024 9:27 AM [...] false-positive. Assessment & Plan (10/18/2020 5:19 PM ROLLED MATERIALS WORKER): No symptoms of myocardial ischemia, albeit with [...] made. Assessment & Plan (10/18/2020 5:19 PM ROLLED MATERIALS WORKER): He is on chronic lipid-lowering therapy. No [...] Department Care Team Description 10/16/2024 8:45 AM ROLLED MATERIALS WORKER - 10/16/2024 9:30 AM ROLLED MATERIALS WORKER Surgery [facility] Digestive Disease [address] [address] Mendel Sung MD COLON BIOPSY 10/16/2024 8:41 AM ROLLED MATERIALS WORKER Anesthesia Event [facility] Digestive Disease [place] [address] [facility] [address] [place] [address] Tomasz Maharaj MD 10/16/2024 7:34 AM ROLLED MATERIALS WORKER - 10/16/2024 10:09 AM ROLLED MATERIALS WORKER Hospital Encounter [facility] Digestive Disease [place] [address] [facility] [address] [place] [address] Mendel Sung MD 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 (CMS/HCC) (HCC) Discharge Disposition: Discharge to home or self care 10/15/2024 Telephone [facility] Gastroenterology [address] [facility] 12th [place] [address] [place] [address] FrazierMelly heathBRIANA 10/13/2024 Telephone [facility] Specialty Services [address] [place] [address] Zandra John RN GI PROCEDURE 3 DAY PRE CALL 10/02/2024 1:45 PM ROLLED MATERIALS WORKER Office Visit [facility] Surgery [address] [facility] Floor 5 [place] [address] Jeremy Shane MD Malignant neoplasm of lung, unspecified laterality, unspecified part of lung (HCC) (Primary Dx) 10/02/2024 11:47 AM ROLLED MATERIALS WORKER - 10/02/2024 11:59 PM ROLLED MATERIALS WORKER Hospital Encounter [facility] [address] [place] [address] Jeremy [place] MD Malignant neoplasm of lung, unspecified laterality, unspecified part of lung (HCC) Discharge Disposition: Discharge to home or self care 10/02/2024 Orders Only [facility] Surgery [address] [facility] Floor 5 [place] [address] Rita Griffith NP Malignant neoplasm of lung, unspecified laterality, unspecified part of lung (HCC) (Primary Dx) 10/01/2024 Telephone [facility] Surgery [address] [facility] [address] [place] [address] Familia Griffith RMA from Last 3 Months Immunizations Name Administration [...] 2020 VASCULAR SURGERY 12/31/2019 Self-expanding covered stent ([place] Viabahn 9 x 100 mm) placement to exclude right SFA/popliteal aneurysm VASCULAR SURGERY 09/03/2019 . Right lower extremity angiogram 2. Self-expanding covered stent ([place] Viabahn 9 x 150 mm) placement to exclude right SFA/popliteal aneurysm LOBECTOMY 03/12/2024 - 04/11/2024 right middle lobe Medical History Medical History Date Comments Allergic rhinitis Anxiety Peripheral vascular disease (HCC) hx of stents right leg Sinusitis DVT of lower extremity (deep venous thrombosis) (HCC) 2004 S/pm CABG x5v Other complications of anest hesia, sequela 07/2005 Had postoperative respirator y issues after CABG x5 necessitating prolonged intubation Coronary artery disease Hyperlipidemia Diverticulitis 2006 Colovesical fist william requiring surgery Cataract Hypertension Clotting disorder (CMS/HCC) (HCC) Neuromuscular disorder (HCC) left foot Aortic stenosis History of blood transfusion 07/2005 Vision loss of left eye COPD (chronic obstructive pu lmonary disease) (HCC) 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 [...] on file Legal Sex Male 7:01 PM ROLLED MATERIALS WORKER Gender Identity Not on file Sexual Orientation Not on file Obstetrics History Last Filed Vital Signs Vital Sign Reading Time Taken Comments Blood Pressure 143/83 10/16/2024 9:51 AM ROLLED MATERIALS WORKER Pulse 87 10/16/2024 9:51 AM ROLLED MATERIALS WORKER Temperature 36 C (96.8 F) 10/16/2024 9:21 AM ROLLED MATERIALS WORKER Respiratory Rate 18 10/16/2024 9:51 AM ROLLED MATERIALS WORKER Oxygen Saturation 95% 10/16/2024 9:51 AM ROLLED MATERIALS WORKER Inhaled Oxygen Concentration - - Weight 77.1 kg (170 lb) 10/16/2024 8:25 AM ROLLED MATERIALS WORKER Height 175.3 cm (5' 9 ) 10/16/2024 8:25 AM ROLLED MATERIALS WORKER Body Mass Index 25.1 10/16/2024 8:25 AM ROLLED MATERIALS WORKER Plan of Treatment Health Maintenance Due Date [...] 10/16/2024, 09/22/2013 Medical Devices Implanted Type Area Special Education Director Device Identifier Shelf Expiration Date Model / Serial / Lot Wl [employer] [id number] Viabahn 9mm 9fr 15cm 120cm Iliac Artery Stent Endoprosthesis - [id number] - [id number] Implanted:Qty: 1 on 09/03/2019 by Hernan Hernandez MD at [facility] Stent Wl [employer] [id number] 07/22/2021 [id number] / [id number] / Description:Distal SFA Popli teal Artery Wl [employer] [id number] Viabahn 9mm 9fr 10cm 120cm Delivery System Tip To Hub Deployment - [id number] - [id number] Implanted:Qty: 1 on 12/31/2019 by Hernan Hernandez MD at [facility] Stent Right: Leg Wl [employer] [id number] 06/10/2022 [id number] 2A / [id number] / [employer] Device Vascular Closure Femoral Artery Bioabsorbable Dual Method Vascade 6-7fr Collagen [id number] - S0 - [id number] Implanted:Qty: 1 on 07/25/2024 by Sigifredo Das MD at [facility] Vascular Closure Device [employer] 04/21/2026 [id number] / 0 / [id number] Cordis Mynxgrip 5fr Balloon Catheter Integrate Sealant Lock Latex Free [id number] - S0 - [id number] Implanted:Qty: 1 on 07/25/2024 by Sigifredo Das MD at [facility] Vascular Closure Device [employer] 05/05/2026 [id number] / 0 / [id number] Procedures Procedure Name Priority Date/Time Associated Diagnosis Comments SURGICAL PATHOLOGY Routine 10/16/2024 8: 57 AM ROLLED MATERIALS WORKER 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 (CMS/HCC) (HCC) COLON BIOPSY 10/16/2024 8:41 AM ROLLED MATERIALS WORKER 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 (CMS/HCC) (HCC) COLONOSCOPY 10/16/2024 8:40 AM ROLLED MATERIALS WORKER CT CHEST WO CONTRAST Schedule Routine, Read Routine (OP Routine) 10/02/2024 12:10 PM ROLLED MATERIALS WORKER Malignant neoplasm of lung, unspecified laterality, unspecified part of lung (HCC) CTA ABDOMINAL AORTA AND BILATERAL ILIOFEMORAL RUNOFF Schedule Routine, Read Routine (OP Routine) 01/15/2024 10:28 AM ROLLED MATERIALS WORKER Popliteal artery aneurysm (CMS/HCC) (HCC) from Last 3 Months or Most Recently Relevant to Health Maintenance Results * Surgical pathology (10/16/2024 8:57 AM ROLLED MATERIALS WORKER) Tissue (Polyp(s), colon/colorectal, esophageal, gastric) 10/16/2024 8:57 AM ROLLED MATERIALS WORKER Tissue (Colon, Biopsy) 10/16/2024 9:05 AM ROLLED MATERIALS WORKER Tissue (Colon, Biopsy) 10/16/2024 9:06 AM ROLLED MATERIALS WORKER Tissue (Colon, Biopsy) 10/16/2024 9:07 AM ROLLED MATERIALS WORKER Tissue (Polyp(s), colon/colorectal, esophageal, gastric) 10/16/2024 9:08 AM ROLLED MATERIALS WORKER Narrative PATHOLOGY [facility] - 10/20/2024 1:25 PM ROLLED MATERIALS WORKER EPIC results best viewed via link to PDF [facility] [place] [address] Note to Patients: This report may contain [...] Gender: Rashaun : 1950 (Age: 74) Address: [address] [place] [address] Hospital #: [id number] Taken:10/16/2024 Received:10/16/2024 Reported: 10/20/2024 Patient Type: [facility] Service: Gastroenterology Location: Physician(s): Mendel H. Pineda, M.D. Maykel Mulligan, M.D. Diagnosis: A. Ascending colon, polyp x2, [...] E1. Jar 0. axxm/10/16/2024 15:59 PA(s): Zuly Timmons, MS, PA (ACSP)CM By this signature, I attest that the above diagnosis is based upon my personal examination of the slides(and/or other material). Addenda/Procedures The performance characteristics of some immunohistochemical stains, fluorescence in-situ hybridization tests and immunophenotyping by flow cytometry cited in this report (if any) were determined by the Surgical Pathology and Flow Cytometry Departments at [facility] as part of an ongoing quality assurance supervisor body program and in compliance with federally mandated [...] Pathology and Flow Cytometry Departments of [facility]. It has not been cleared or approved by the U. S. Food and Drug Administration. IMAGES AND SCANNED DOCUMENTS, IF INCLUDED, ONLY VIEWABLE IN PDF VERSION OF REPORT us Mendel Sung MD LAB PATHOLOGY ORDERABLES Fi nal Result PATHOLOGY [facility] 3rd Floor [place], [place] [phone] * Colonoscopy (10/16/2024 8:40 AM ROLLED MATERIALS WORKER) Anatomical Region Laterality Modality Other Narrative Procedure Note Mendel Sung MD - 10/16/2024 8:40 AM CST GI ENDOSCOPY [facility] Patient Name: Julio C Roberson Procedure Date: 10/16/2024 8:40 AM Date of : 1950 Admit Type: Outpatient Age: 74 Gender: Male Attending MD: Mendel Sung M.D. Room: [facility] ENDOSCOPY ROOM 8 Note Status: Finalized Procedure: Colonoscopy Indications: Family history of colon cancer in a first-degree relative before age 60 years, Last colonoscopy: September 2013, Abnormal PET scan of the GI tract,on Lialda Referring MD: Maykel Gramajo M.D. Providers: Mendel Sung M.D. Medicines: [...] scope was passed under direct vision.The CF [id number] endoscope was introduced through the anus and advanced to the cecum, identified by appendiceal orifice and ileocecal valve. The colonoscopy was performed without difficulty. The patient tolerated the procedure well. The qualityof the bowel preparation was evaluated using the BBPS ([place] Bowel Preparation Scale) with scores of:Right Colon [...] business hours - Please call theNurse Coordinator: [phone]. After hours, evening, nights, weekends and holidays- Please call the hospital explosive operator supervisor at and ask for the GI fellow production operations engineer. Electronically signed by Mendel Sung MD Mendel Sung M.D. 10/16/2024 9:23:20 AM . Number of Addenda: 0 Note Initiated On: 10/16/2024 8:40 AM us Mednel Sung MD ENDOSCOPY PROCEDURES Final Result * CT Chest WO Contrast (10/02/2024 12:10 PM ROLLED MATERIALS WORKER) Anatomical Region Laterality Modality Body N/A Computed Tomogra phy 10/02/2024 12:2 0 PM ROLLED MATERIALS WORKER Impressions 10/02/2024 12:20 PM ROLLED MATERIALS WORKER 1. Interval changes of right middle lobectomy [...] José Rich M.D. Narrative 10/02/2024 12:20 PM ROLLED MATERIALS WORKER EXAMINATION: Computed tomography of the chest without [...] And Bilateral Iliofemoral Runoff (01/15/2024 10:28 AM ROLLED MATERIALS WORKER) Anatomical Region Laterality Modality Body Bilateral Computed Tomogra phy 01/15/2024 11:5 2 AM ROLLED MATERIALS WORKER Addenda Addendum by Jason Mahan MD on 03/03/2024 3:45 PM CDT Follow up Cardiothoracic Surgery consult and PET/CT done on 02/07/24. Margarita CHAVEZ RN. Edited by: Margarita Mccabe Electronically signed by: Jason Mahan M.D. Impressions 01/15/2024 1:08 PM ROLLED MATERIALS WORKER 1. Spiculated soft tissue nodule in the [...] Jason Mahan M.D. Narrative 01/15/2024 1:08 PM ROLLED MATERIALS WORKER EXAMINATION: CT ANGIOGRAPHY OF THE ABDOMEN, PELVIS, [...] Relevant to Health Maintenance Insurance MEDICARE [facility] MEDICARE [facility] MEDICARE [facility] Advance Directives For more information, please contact: [phone] Documents on File Type Date Recorded Patient Leather Sorter Expl anation Power of College Scouting Coordinator 07/25/2024 6:24 AM * Full Code (Latest [...] 4:37 PM 09/04/2019 7:06 PM Care Teams Therapy Assistant Relationship Specialty Start Date End Date Maykel Gramajo MD PCP - General 02/09/17 Hernan Hernandez MD Surgeon Vascular Surgery 09/04/19 Maykel Ramires MD [address] [place] [address] Referring Physician Cardiology 07/25/24 Maykel Villalpando MD [address] [place] [address] Consulting Physician Cardiothoracic Surgery 07/25/24
--- OUTSIDE RECORDS SUMMARY | 2024-12-18 11:38 | XMS_ITS | Clinical Summary ---
Author Organization [facility] Address [address] [place] [address] Care Team Providers Care Quill Picking Machine Operator Name Role Phone Maykel Gramajo MD Primary Care Provider [phone] Allergies Active Allergy Reactions Criticality Noted Date [...] Encounters Date Type Department Care Team Description 12/11/2024 Orders Only [facility] Oncology and Hematology - [place] [address] [place] [address] Khai Walsh MD 12/09/2024 External Device Data STL ABSTRACTION Provider, Abstract 12/09/2024 External Device Data ST[facility] ABSTRACTION Provider, Abstract 12/09/2024 Chart Note [facility] Emergency Department [address] [address] Sandeep Zafar MD 12/03/2024 External Device Data STL ABSTRACTION Provider, Abstract 12/03/2024 Orders Only [facility] Oncology and Hematology [facility] [address] [place] [address] Khai Walsh MD 12/02/2024 10:30 AM OUTPATIENT CLERK Office Visit [facility] Oncology and Hematology [facility] [address] [place] [address] Khai Walsh MD Prostate cancer (CMS/HCC) (Primary [...] on file Legal Sex Male 1:21 PM OUTPATIENT CLERK Gender Identity Not on file Sexual Orientation Not on file Last Filed Vital Signs Vital Sign Reading Time Taken Comments Blood Pressure 134/73 12/02/2024 10:06 AM OUTPATIENT CLERK Pulse 68 12/02/2024 10:06 AM OUTPATIENT CLERK Temperature 36.2 C (97.1 F) 12/02/2024 10:06 AM OUTPATIENT CLERK Respiratory Rate 16 12/02/2024 10:06 AM OUTPATIENT CLERK Oxygen Saturation 97% 12/02/2024 10:06 AM OUTPATIENT CLERK Inhaled Oxygen Concentration - - Weight 79.8 kg (176 lb) 12/02/2024 10:06 AM OUTPATIENT CLERK Height 172.7 cm (5' 8 ) 12/02/2024 10:06 AM OUTPATIENT CLERK Body Mass Index 26.76 12/02/2024 10:06 AM OUTPATIENT CLERK Plan of Treatment Upcoming Encounters Date Type Department Care Team (Late st Contact Info) Description 12/23/2024 1:00 PM OUTPATIENT CLERK Office Visit [facility] Oncology and Hematology [facility] [address] [facility] [[email or web address] [address] [place] [address] Khai Walsh MD [address] [facility] [address] [place] [address] Health Maintenance Due Date Last [...] COMPREHENSIVE METABOLIC PANEL Routine 12/02/2024 3:30 PM OUTPATIENT CLERK TESTOSTERONE FREE Routine 12/02/2024 11: 49 AM OUTPATIENT CLERK from Last 3 Months Results * COMPREHENSIVE METABOLIC PANEL (12/02/2024 3:30 PM OUTPATIENT CLERK) Blood us Khai Walsh MD CHEMISTRY ORDERABLES Final Resu lt * TESTOSTERONE FREE (12/02/2024 11:49 AM OUTPATIENT CLERK) Blood us Khai Walsh MD CHEMISTRY ORDERABLES Final Resu lt from Last 3 Months Insurance MEDICARE PART A AND B [facility] [id number] Care Teams Quill Picking Machine Operator Relationship Specialty Start Date End Date Maykel Gramajo MD [address] [place] [address] PCP - General Family Practice 12/02/24
[2024-12-18 15:15] LABS: Prostate Specific Antigen 44.5 ng/mL (< OR = 4.0)
== END 2024-12-18 11:11 | disposition home or self-care (01) ==
PROVIDERS: PCP Family Medicine; Visit Provider Radiology Radiation Oncology
DX: C61 Malignant neoplasm of prostate (principal)
CPT/HCPCS: 36415; 84153

== ENCOUNTER 2025-01-06 10:19 | Outpatient (CLI) | payer MEDICARE, SELFPAY ==
[2025-01-06 11:00] LABS: INR 1.3
[2025-01-06 11:01] LABS: Partial Thromboplastin Time 39.4 Seconds (22.3-36.8)
--- OUTSIDE RECORDS SUMMARY | 2025-01-06 12:12 | XMS_ITS | Clinical Summary ---
Author Organization [facility] Address [address] [place] [address] Care Team Providers Care Literacy Teacher Name Role Phone Maykel Gramajo MD Primary Care Provider [phone]- [phone] Allergies Active Allergy Reactions Criticality Noted Date [...] Take 1 Tablet by mouth daily. Active abiraterone (ZYTIGA) 250 mg tablet Take 4 Tablets (1,000 mg) by mouth daily before breakfast. 120 Tablet 4 12/26/2024 10:03 AM ATTENDING PATHOLOGIST 12/23/2024 Active predniSONE (DELTASONE) 5 mg tablet Take 1 Tablet (5 mg) by mouth 2 times daily with meals. 60 Tablet 4 12/23/2024 Active Active Problems No known active problems Encounters Date Type Department Care Team Description 12/24/2024 Specialty Pharmacy [facility] [address] [place] [phone] Ashley Roberson, PHARMACIST Specialty Pharmacy Refill Coordination 12/24/2024 Specialty Pharmacy [facility] [address] [place] [address] [place] [address] Ashley Roberson, PHARMACIST Specialty Pharmacy Clinical Assessment 12/23/2024 1:00 PM ATTENDING PATHOLOGIST Office Visit [facility] Oncology and Hematology - [place] [address] [place] [address] Khai Walsh MD Prostate cancer (CMS/HCC) (Primary Dx) 12/23/2024 Specialty Pharmacy [facility] [address] [place] [address] [place] [address] Ashley Roberson, PHARMACIST 12/11/2024 Orders Only [facility] Oncology and Hematology - [place] [address] [place] [address] Khai Walsh MD 12/09/2024 External Device Data STL ABSTRACTION Provider, Abstract 12/09/2024 External Device Data ST[place] ABSTRACTION Provider, Abstract 12/09/2024 Chart Note [facility] - [address] [address] Sandeep Zafar MD 12/03/2024 External Device Data ST[place] ABSTRACTION Provider, Abstract 12/03/2024 Orders Only [facility] Oncology and Hematology - [place] [address] [place] [address] Khai Walsh MD 12/02/2024 10:30 AM ATTENDING PATHOLOGIST Office Visit [facility] Oncology and Hematology - [place] [address] [place] [address] Khai Walsh MD Prostate cancer (CMS/HCC) (Primary [...] 35 Q uit: 12/02/2004 Smokeless Tobacco: Never Tobacco Cessation:Counseling Given: Not Answered Alcohol Use Standard Drinks/Week Comments Never 0 (1 standard drink = 0.6 oz pur e alcohol) Sex and Gender Information Value Date Recorded Sex Assigned at Not on file Legal Sex Male 1:21 PM ATTENDING PATHOLOGIST Gender Identity Not on file Sexual Orientation Not on file Last Filed Vital Signs Vital Sign Reading Time Taken Comments Blood Pressure 140/81 12/23/2024 1:06 PM ATTENDING PATHOLOGIST Pulse 66 12/23/2024 1:06 PM ATTENDING PATHOLOGIST Temperature 36.3 C (97.4 F) 12/23/2024 1:06 PM ATTENDING PATHOLOGIST Respiratory Rate 14 12/23/2024 1:06 PM ATTENDING PATHOLOGIST Oxygen Saturation 97% 12/23/2024 1:06 PM ATTENDING PATHOLOGIST Inhaled Oxygen Concentration - - Weight 79.8 kg (176 lb) 12/23/2024 1:06 PM ATTENDING PATHOLOGIST Height 172.7 cm (5' 8 ) 12/02/2024 10:06 AM ATTENDING PATHOLOGIST Body Mass Index 26.76 12/02/2024 10:06 AM ATTENDING PATHOLOGIST Plan of Treatment Health Maintenance Due Date Last Done Comments FIT-DNA Q 3 years 1995 FIT/FOBT Q [...] 03/26/2033 03/26/2023 COLORECTAL SCREENING 10/16/2034 10/16/2024, 10/16/20 Colorectal Cancer Screening 10/16/2034 Procedures Procedure Name Priority Date/Time Associated Diagnosis Comments COMPREHENSIVE METABOLIC PANEL Routine 12/02/2024 3:30 PM ATTENDING PATHOLOGIST TESTOSTERONE FREE Routine 12/02/2024 11: 49 AM ATTENDING PATHOLOGIST from Last 3 Months Results * COMPREHENSIVE METABOLIC PANEL (12/02/2024 3:30 PM ATTENDING PATHOLOGIST) Blood Khai Walsh MD CHEMISTRY ORDERABLES Final Resu lt * TESTOSTERONE FREE (12/02/2024 11:49 AM ATTENDING PATHOLOGIST) Blood Khai Walsh MD CHEMISTRY ORDERABLES Final Resu lt from Last 3 Months Insurance MEDICARE PART A AND B [facility] [id number] RX [employer] Member Subscriber Plan / Payer (Ef fective 2024-Present) Name:Gume Roberson Relation to Subscriber:Self Name:Gume Roberson Payer ID:Not on file Group ID:[id number] Type:RX Medicare Part D Address: [address] Care Teams Literacy Teacher Relationship Specialty Start Date End Date Maykel Gramajo MD [address] [place] [phone] PCP - General Family Practice 12/02/24
--- OUTSIDE RECORDS SUMMARY | 2025-01-06 12:12 | XMS_ITS | Referral Summary ---
Author Organization [facility] Address [address] [place] [address] Care Team Providers Care Apparatus Operator Name Role Phone Maykel Gramajo MD Primary Care Provider [phone] Hernan Hernandez MD Unavailable [phone] Maykel Ramires MD Unavailable [phone] Maykel Villalpando MD Unavailable Encounters Date Type Department Care Team Description 01/06/2025 Documentation [facility] Gastroenterology [address] [facility] 12th [place] [address] [place] [address] Mansi Melo, NAHUM GI Advice re: PSMA Scan message(s) 10/16/2024 8:45 AM PREFORMS LAMINATOR - 10/16/2024 9:30 AM PREFORMS LAMINATOR Surgery [facility] [address] [place] [id number] Mendel Sung MD COLON BIOPSY 10/16/2024 8:41 AM PREFORMS LAMINATOR Anesthesia Event [facility] [address] [address] Tomasz Maharaj MD 10/16/2024 7:34 AM PREFORMS LAMINATOR - 10/16/2024 10:09 AM PREFORMS LAMINATOR Hospital Encounter [facility] [address] [address] Mendel Sung MD 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 (CMS/HCC) (HCC) Discharge Disposition: Discharge to home or self care 10/15/2024 Telephone [facility] Gastroenterology [address] [facility] 12th [place] [address] [place] [address] Melly Frazier RMA 10/13/2024 Telephone [facility] Specialty Services [address] [place] [address] Zandra John RN GI PROCEDURE 3 DAY PRE CALL from Last 3 Months Allergies Active Allergy Reactions Criticality Noted Date Comments Lactose Stomach upset Low 07/09/2019 Medications multivitamin tablet tablet take 1 Tablet by oral route every day with food 0 0 4 Active Additional Information Patient taking differently: 1 tablet oral Daily after dinner, Indications: Vitamin Deficiency Prevention, Informant: Self, Reported on 10/16/2024 loratadine (CLARITIN) 10 mg tablet take 1 tablet by oral route every morning 0 0 4 Active ALPRAZolam (XANAX) 0.25 mg tablet take 1 tablet by oral route every day 0 7 Active simvastatin (ZOCOR) 20 mg tablet take 1 tablet (20MG) by oral route every day in the evening 0 2 Active fenofibrate (TRIGLIDE) 160 mg tablet take 1 tablet (160MG) by oral route every day 0 2 Active pregabalin (LYRICA) 100 mg capsuleIndication s:neuropathy Take 1 capsule (100 mg total) by mouth nightly 9 Active acetaminophen (TYLENOL) 325 mg tabletIndications :Fever,Pain Take 2 tablets (650 mg total) by mouth every 4 (four) hours as needed for pain 30 tablet 9 Active PROAIR HFA 90 mcg/actuation inhaler Inhale 2 puffs every 4 (four) hours as needed for shortness of breath 0 Active aspirin 81 mg enteric coated tabletIndications :heart health Take 1 tablet (81 mg total) by mouth daily after dinner Active triamcinolone (KENALOG) 0.1 % creamIndications: Skin Inflammation Apply topically as needed prn 0 Active nitroglycerin (Nitrostat) 0.[address] 1 tablet (0.4 mg total) under the tongue every 5 (five) minutes as needed for chest pain (If pain has not resolved by the 3rd tablet then proceed to the emergency room) 15 tablet 11 3 Active tamsulosin (FLOMAX) 0.4 mg extended release capsule Take 1 capsule (0.4 mg total) by mouth daily 4 Active Xarelto 10 mg tablet TAKE 1 TABLET BY MOUTH DAILY 90 tablet 3 4 Active metoprolol XL (TOPROL-XL) 25 mg extended release tablet TAKE 1 TABLET BY MOUTH ONCE DAILY 90 tablet 3 4 Active HYDROcodone-aceta minophen (NORCO) 5-325 mg per tablet Take by mouth every 6 (six) hours as needed 4 Active mesalamine (LIALDA) 1.2 gram EC tabletIndications :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 (CMS/HCC) (HCC) TAKE 3 TABLETS BY MOUTH DAILY 270 tablet 3 5 Active Active Problems Patient Care Coordination No te [...] Assessment & Plan (03/16/2024 11:21 AM CDT): 03/14 pereyra removed, failed void check. Straight cathed [...] to consider that. PAD (peripheral artery disease) ([facility] 2019 Overview (05/25/2020): Added automatically from request for surgery [id number] Popliteal artery aneurysm, bilateral 12/09/2019 Overview (12/09/2019): Added automatically from request for surgery [id number] Assessment & Plan (06/11/2020 5:49 PM CDT): - S/p status post self-expanding covered stent ([employer] Viabahn 9 x 150 mm) placement to [...] History of epistaxis 08/21/2019 Popliteal artery aneurysm ([facility]) 08/19/2019 Overview (08/19/2019): Added automatically from request for surgery [id number] Coronary artery disease of n ative artery of [place] heart with stable angina pectoris ([facility]) 03/28/2018 Assessment & Plan (03/17/2024 9:27 AM CDT): S/p CABG 2004 - restart low dose BB titrate up as BP/HR tolerates - continue statin meds Assessment & Plan (03/23/2021 10:02 PM CDT): He is not experiencing chest discomfort, but does have exertional dyspnea. Continue anti-platelet and beta-shirley therapy. Will obtain pharmacologic stress test, realizing that in the past this was a false-positive. Assessment & Plan (10/18/2020 5:19 PM PREFORMS LAMINATOR): No symptoms of myocardial ischemia, albeit with [...] made. Assessment & Plan (10/18/2020 5:19 PM PREFORMS LAMINATOR): He is on chronic lipid-lowering therapy. No [...] control. No changes made. Chronic ulcerative pancolitis ([facility]/HCC) 04/20/20 11 Immunizations Immunization Administration Dates Next Due Influenza, Quadrivalent, Hig [...] on file Legal Sex Male 7:01 PM PREFORMS LAMINATOR Gender Identity Not on file Sexual Orientation Not on file Last Filed Vital Signs Vital Sign Reading Time Taken Comments Blood Pressure 143/83 10/16/2024 9:51 AM PREFORMS LAMINATOR Pulse 87 10/16/2024 9:51 AM PREFORMS LAMINATOR Temperature 36 C (96.8 F) 10/16/2024 9:21 AM PREFORMS LAMINATOR Respiratory Rate 18 10/16/2024 9:51 AM PREFORMS LAMINATOR Oxygen Saturation 95% 10/16/2024 9:51 AM PREFORMS LAMINATOR Inhaled Oxygen Concentration - - Weight 77.1 kg (170 lb) 10/16/2024 8:25 AM PREFORMS LAMINATOR Height 175.3 cm (5' 9 ) 10/16/2024 8:25 AM PREFORMS LAMINATOR Body Mass Index 25.1 10/16/2024 8:25 AM PREFORMS LAMINATOR Plan of Treatment Not on file Medical Devices Implanted Type Area Assembly Machine Offbearer Device Identifier Shelf Expiration Date Model / Serial / Lot [employer] [id number] Viabahn 9mm 9fr 15cm 120cm Iliac Artery Stent Endoprosthesis - [id number] - [id number] Implanted:Qty: 1 on 09/03/2019 by Hernan Hernandez MD at [facility] Stent Wl [employer] [id number] 07/22/2021 [id number] / [id number] / Description:Distal SFA Popli teal Artery Wl [employer] [id number] Viabahn 9mm 9fr 10cm 120cm Delivery System Tip [employer] - [id number] - [id number] Implanted:Qty: 1 on 12/31/2019 by Hernan Hernandez MD at [facility] Stent Right: Leg Wl [employer] [id number] 06/10/2022 [id number] / [id number] / [employer] Device Vascular Closure Femoral Artery Bioabsorbable Dual Method Vascade 6-7fr Collagen [id number] - S0 - [id number] Implanted:Qty: 1 on 07/25/2024 by Sigifredo Das MD at [facility] Vascular Closure Device [employer] 04/21/2026 [id number] / 0 / [id number] Cordis Mynxgrip 5fr Balloon Catheter Integrate Sealant Lock Latex Free [id number] - S0 - [id number] Implanted:Qty: 1 on 07/25/2024 by Sigifredo Das MD at [facility] Vascular Closure Device [employer] 05/05/2026 [id number] / [id number] / [id number] Procedures Procedure Name Priority Date/Time Associated Diagnosis Comments SURGICAL PATHOLOGY Routine 10/16/2024 8: 57 AM PREFORMS LAMINATOR 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 (CMS/HCC) (HCC) COLON BIOPSY 10/16/2024 8:41 AM PREFORMS LAMINATOR 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 (CMS/HCC) (HCC) COLONOSCOPY 10/16/2024 8:40 AM PREFORMS LAMINATOR CTA ABDOMINAL AORTA AND BILATERAL ILIOFEMORAL RUNOFF Schedule Routine, Read Routine (OP Routine) 01/15/2024 10:28 AM PREFORMS LAMINATOR Popliteal artery aneurysm (CMS/HCC) (HCC) from Last 3 Months or Most Recently Relevant to Health Maintenance Results * Surgical pathology (10/16/2024 8:57 AM PREFORMS LAMINATOR) Tissue (Polyp(s), colon/colorectal, esophageal, gastric) 10/16/2024 8:57 AM PREFORMS LAMINATOR Tissue (Colon, Biopsy) 10/16/2024 9:05 AM PREFORMS LAMINATOR Tissue (Colon, Biopsy) 10/16/2024 9:06 AM PREFORMS LAMINATOR Tissue (Colon, Biopsy) 10/16/2024 9:07 AM PREFORMS LAMINATOR Tissue (Polyp(s), colon/colorectal, esophageal, gastric) 10/16/2024 9:08 AM PREFORMS LAMINATOR Narrative PATHOLOGY [facility] - 10/20/2024 1:25 PM PREFORMS LAMINATOR EPIC results best viewed via link to PDF [facility] [place] [address] Note to Patients: This report may contain [...] Patient Name: JULIO C ROBERSON JR. Gender: M : 1950 (Age: 74) Address: [address] [place], [place] [address] Hospital #: [id number] Taken:10/16/2024 Received:10/16/2024 Reported: 10/20/2024 Patient Type: [facility] Service: Gastroenterology Location: Physician(s): Mendel Sung M.D. Maykel Gramajo M.D. Diagnosis: A. Ascending colon, polyp x2, [...] axxm/10/16/2024 15:59 PA(s): Zuly Timmons, MS, PA ([facility])CM By this signature, I attest that the above diagnosis is based upon my personal examination of the slides(and/or other material). Addenda/Procedures The performance characteristics of some immunohistochemical stains, fluorescence in-situ hybridization tests and immunophenotyping by flow cytometry cited in this report (if any) were determined by the Surgical Pathology and Flow Cytometry Departments at [facility] as part of an ongoing quality control microbiologist program and in compliance with federally mandated [...] Surgical Pathology and Flow Cytometry Departments of [facility]. It has not been cleared or approved by the U. S. Food and Drug Administration. IMAGES AND SCANNED DOCUMENTS, IF INCLUDED, ONLY VIEWABLE IN PDF VERSION OF REPORT Mendel Sung MD LAB PATHOLOGY ORDERABLES Fi nal Result PATHOLOGY [facility] 3rd Floor [place], [place] [phone] * Colonoscopy (10/16/2024 8:40 AM PREFORMS LAMINATOR) Anatomical Region Laterality Modality Other Narrative Procedure Note Mendel Sung MD - 10/16/2024 8:40 AM CST GI ENDOSCOPY [facility] Patient Name: Julio C Roberson Procedure Date: 10/16/2024 8:40 AM Date of : 1950 Admit Type: Outpatient Age: 74 Gender: Male Attending MD: Mendel Sung M.D. Room: [facility] ENDOSCOPY ROOM 8 Note Status: Finalized Procedure: [...] The scope was passed under direct vision.The [id number] endoscope was introduced through the anus and advanced to the cecum, identified by appendiceal orifice and ileocecal valve. The colonoscopy was performed without difficulty. The patient tolerated the procedure well. The qualityof the bowel preparation was evaluated using the BBPS ([place] Bowel Preparation Scale) with scores of:Right Colon [...] business hours - Please call theNurse Coordinator: [phone]. After hours, evening, nights, weekends and holidays- Please call the hospital wing mailer machine operator at and ask for the GI fellow diamond wheel molder. Electronically signed by Mendel Sung MD Mendel Sung M.D. 10/16/2024 9:23:20 AM . Number of Addenda: 0 Note Initiated On: 10/16/2024 8:40 AM us Mendel Sung MD ENDOSCOPY PROCEDURES Final Result * CTA Abdominal Aorta And Bilateral Iliofemoral Runoff (01/15/2024 10:28 AM PREFORMS LAMINATOR) Anatomical Region Laterality Modality Body Bilateral Computed Tomogra phy 01/15/2024 11:5 2 AM PREFORMS LAMINATOR Addenda Addendum by Jason Mahan MD on 03/03/2024 3:45 PM CDT Follow up Cardiothoracic Surgery consult and PET/CT done on 02/07/24. Margarita CHAVZE, RN. Edited by: Margarita Mccabe Electronically signed by: Jason Mahan M.D. Impressions 01/15/2024 1:08 PM PREFORMS LAMINATOR 1. Spiculated soft tissue nodule in the [...] Jason Mahan M.D. Narrative 01/15/2024 1:08 PM PREFORMS LAMINATOR EXAMINATION: CT ANGIOGRAPHY OF THE ABDOMEN, PELVIS, [...] Recently Relevant to Health Maintenance Insurance MEDICARE [facility] MEDICARE [employer] Advance Directives For more information, please contact: [phone] Documents on File Type Date Recorded Patient Pallet Sorter Expl anation Power of Assistant [employer] Public [employer] 07/25/2024 6:24 AM * Full Code (Latest [...] 4:37 PM 09/04/2019 7:06 PM Care Teams Apparatus Operator Relationship Specialty Start Date End Date Maykel Gramajo MD PCP - General 02/09/17 Hernan Hernandez MD Surgeon Vascular Surgery 09/04/19 Maykel Ramires MD [address] [place] [address] Referring Physician Cardiology 07/25/24 Maykel Villalpando MD [address] [place] [address] Consulting Physician Cardiothoracic Surgery 07/25/24
--- OUTSIDE RECORDS SUMMARY | 2025-01-06 12:12 | XMS_ITS | Clinical Summary ---
Author Organization [facility] Address [address] [place] [address] Care Team Providers Care Merchandise Presentation Manager Name Role Phone Maykel Gramajo MD Primary Care Provider [phone] Hernan Hernandez MD Unavailable [phone] Maykel Ramires MD Unavailable [phone] Maykel Villalpando MD Unavailable [phone] Allergies Active Allergy Reactions Criticality Noted Date [...] to consider that. PAD (peripheral artery disease) ([facility]) 2019 Overview (05/25/2020): Added automatically from request for surgery [id number] Popliteal artery aneurysm, bilateral 12/09/2019 Overview (12/09/2019): Added automatically from request for surgery [id number] Assessment & Plan (06/11/2020 5:49 PM CDT): - S/p status post self-expanding covered stent ([employer] Viabahn 9 x 150 mm) placement to [...] History of epistaxis 08/21/2019 Popliteal artery aneurysm ([facility]) 08/19/2019 Overview (08/19/2019): Added automatically from request for surgery [id number] Coronary artery disease of n ative artery of [place] heart with stable angina pectoris ([facility]) 03/28/2018 Assessment & Plan (03/17/2024 9:27 AM [...] false-positive. Assessment & Plan (10/18/2020 5:19 PM COMBINATION WORKER): No symptoms of myocardial ischemia, albeit [...] made. Assessment & Plan (10/18/2020 5:19 PM COMBINATION WORKER): He is on chronic lipid-lowering therapy. [...] Type Department Care Team Description 01/06/2025 Documentation [facility] Gastroenterology [facility] 12th [place] [address] [place] [address] Mansi Melo, NAHUM GI Advice re: PSMA Scan message(s) 10/16/2024 8:45 AM COMBINATION WORKER - 10/16/2024 9:30 AM COMBINATION WORKER Surgery [facility] [address] [address] Mendel Sung MD COLON BIOPSY 10/16/2024 8:41 AM COMBINATION WORKER Anesthesia Event [facility] [address] [address] Tomasz Maharaj MD 10/16/2024 7:34 AM COMBINATION WORKER - 10/16/2024 10:09 AM COMBINATION WORKER Hospital Encounter 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 (CMS/HCC) ([facility]) Discharge Disposition: Discharge to home or self care 10/15/2024 Telephone [facility] Gastroenterology [address] [place] [address] 12th [place] [address] [place] [address] Melly Frazier RMA 10/13/2024 Telephone [facility] Specialty Services [address] [place] [phone] Zandra John RN GI PROCEDURE 3 DAY PRE CALL from Last 3 Months Immunizations Immunization Administration Dates Next Due Influenza, [...] 2020 VASCULAR SURGERY 12/31/2019 Self-expanding covered stent (Wet[place] Viabahn 9 x 100 mm) placement to exclude right SFA/popliteal aneurysm VASCULAR SURGERY 09/03/2019 . Right lower extremity angiogram 2. Self-expanding covered stent (Wet[place] Viabahn 9 x 150 mm) placement to exclude right SFA/popliteal aneurysm LOBECTOMY 03/12/2024 - 04/11/2024 right middle lobe Medical History Medical History Date Comments Allergic rhinitis Anxiety Peripheral vascular disease (HCC) hx of stents right leg Sinusitis DVT of lower extremity (deep venous thrombosis) ([facility]) 2004 S/pm CABG x5v Other complications of anest hesia, sequela 07/2005 Had postoperative respirator y issues after CABG x5 necessitating prolonged intubation Coronary artery disease Hyperlipidemia Diverticulitis 2007 Colovesical fist william requiring surgery Cataract Hypertension Clotting disorder (CMS/HCC) ([facility]) Neuromuscular disorder ([facility]) left foot Aortic stenosis History of blood transfusion 07/2005 Vision loss of left eye COPD (chronic obstructive pu lmonary disease) ([facility]) 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 (HCC) 03/2024 lobectomy with thoractomy Delayed emergence from gener al anesthesia Family History Medical History Relation Name Comments Colon cancer Child son Asthma Father Julio C Deleon Da SR Heart attack Mother Radha Roberson Myocardial In farction; Heart disease Mother Radha Roberson Hypertension Mother Radha Roberson Family histor y of hypertension - (Added by TW Conv) Arthritis Other Stroke Neg Hx Relation Name Status Comments Child son Alive Father Julio C Deleon Roberson SR Mother Radha Roberson Alive Other [...] on file Legal Sex Male 7:01 PM COMBINATION WORKER Gender Identity Not on file Sexual Orientation Not on file Obstetrics History Last Filed Vital Signs Vital Sign Reading Time Taken Comments Blood Pressure 143/83 10/16/2024 9:51 AM COMBINATION WORKER Pulse 87 10/16/2024 9:51 AM COMBINATION WORKER Temperature 36 C (96.8 F) 10/16/2024 9:21 AM COMBINATION WORKER Respiratory Rate 18 10/16/2024 9:51 AM COMBINATION WORKER Oxygen Saturation 95% 10/16/2024 9:51 AM COMBINATION WORKER Inhaled Oxygen Concentration - - Weight 77.1 kg (170 lb) 10/16/2024 8:25 AM COMBINATION WORKER Height 175.3 cm (5' 9 ) 10/16/2024 8:25 AM COMBINATION WORKER Body Mass Index 25.1 10/16/2024 8:25 AM COMBINATION WORKER Plan of Treatment Health Maintenance Due Date Last Done Comments Depression Screening 1950 Hepatitis C Screening 1950 Hepatitis B Screening 1968 Pneumococcal vaccine 65+ (1 of 2 - PCV) 1969 Zoster Vaccine (1 of 2) 2000 Well Visit 65+ 2015 Covid-19 Vaccine (2023-2 5 season) 2024 09/21/2023, 09/09/2022, 03/29/2022, Additional history exists Influenza Vaccine (#1) 2024 3, 08/17/2022, 08/19/2019, Additional history exists Fall Risk Assessment 10/16/2025 10/16/2024 DTaP/Tdap/Td Vaccine (2 - Td or Tdap) 03/26/2033 03/26/2023 Colon Cancer Screening-Colonoscopy 10/16/2034 10/16/2024, 09/22/2013 Abdominal Aortic Aneurysm (A AA) Screen Completed 01/15/2024, 05/10/2020, 10/16/2019, Additional history exists Colon Cancer Screening-CT Colonography Discontinued 10/16/2024, 09/22/2013 Colon Cancer Screening-DNA Stool Discontinued 10/16/20, 09/22/2013 Colon Cancer Screening-FIT Discontinued 10/16/2024, Colon Cancer Screening-Sigmoidoscopy Discontinued 10/16/2024, 09/22/2013 Medical Devices Implanted Type Area Logging Assistant Device Identifier Shelf Expiration Date Model / Serial / Lot Wl [employer] [id number] Viabahn 9mm 9fr 15cm 120cm Iliac Artery Stent Endoprosthesis - [id number] - [id number] Implanted:Qty: 1 on 09/03/2019 by Hernan Hernandez MD at [facility] Stent Wl [employer] [id number] 07/22/2021 [id number] / [id number] / Description:Distal SFA Popli teal Artery Wl [employer] [id number] Viabahn 9mm 9fr 10cm 120cm Delivery System Tip To [employer] - [id number] - [id number] Implanted:Qty: 1 on 12/31/2019 by Hernan Hernandez MD at [facility] Stent Right: Leg Wl [employer] [id number] 06/10/2022 [id number] / [id number] / [employer] Device Vascular Closure Femoral Artery Bioabsorbable Dual Method Vascade 6-7fr Collagen [id number] - S0 - [id number] Implanted:Qty: 1 on 07/25/2024 by Sigifredo Das MD at [facility] Vascular Closure Device [employer] 04/21/2026 [id number] / 0 / [id number] Cordis Mynxgrip 5fr Balloon Catheter Integrate Sealant Lock Latex Free [id number] - S0 - [id number] Implanted:Qty: 1 on 07/25/2024 by Sigifredo Das MD at [facility] Vascular Closure Device [employer] 05/05/2026 [id number] / [id number] / [id number] Procedures Procedure Name Priority Date/Time Associated Diagnosis Comments SURGICAL PATHOLOGY Routine 10/16/2024 8: 57 AM COMBINATION WORKER 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 (CMS/HCC) (HCC) COLON BIOPSY 10/16/2024 8:41 AM COMBINATION WORKER 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 (CMS/HCC) (HCC) COLONOSCOPY 10/16/2024 8:40 AM COMBINATION WORKER CTA ABDOMINAL AORTA AND BILATERAL ILIOFEMORAL RUNOFF Schedule Routine, Read Routine (OP Routine) 01/15/2024 10:28 AM COMBINATION WORKER Popliteal artery aneurysm (CMS/HCC) (HCC) from Last 3 Months or Most Recently Relevant to Health Maintenance Results * Surgical pathology (10/16/2024 8:57 AM COMBINATION WORKER) Tissue (Polyp(s), colon/colorectal, esophageal, gastric) 10/16/2024 8:57 AM COMBINATION WORKER Tissue (Colon, Biopsy) 10/16/2024 9:05 AM COMBINATION WORKER Tissue (Colon, Biopsy) 10/16/2024 9:06 AM COMBINATION WORKER Tissue (Colon, Biopsy) 10/16/2024 9:07 AM COMBINATION WORKER Tissue (Polyp(s), colon/colorectal, esophageal, gastric) 10/16/2024 9:08 AM COMBINATION WORKER Narrative PATHOLOGY [facility] - 10/20/2024 1:25 PM COMBINATION WORKER EPIC results best viewed via link to PDF [facility] [place] [address] Note to Patients: This report may contain [...] Gender: M : 1950 (Age: 74) Address: [address] [place], [place] [address] Hospital #: [id number] Taken:10/16/2024 Received:10/16/2024 Reported: 10/20/2024 Patient Type: [facility] Service: Gastroenterology Location: Physician(s): Anil Bhat [...] axxm/10/16/2024 15:59 PA(s): Zuly Timmons MS, CLARE ([facility])CM By this signature, I attest that the above diagnosis is based upon my personal examination of the slides(and/or other material). Addenda/Procedures The performance characteristics of some immunohistochemical stains, fluorescence in-situ hybridization tests and immunophenotyping by flow cytometry cited in this report (if any) were determined by the Surgical Pathology and Flow Cytometry Departments at [facility] as part of an ongoing aircraft quality control inspector program and in compliance with federally mandated [...] Surgical Pathology and Flow Cytometry Departments of [facility]. It has not been cleared or approved by the U. S. Food and Drug Administration. IMAGES AND SCANNED DOCUMENTS, IF INCLUDED, ONLY VIEWABLE IN PDF VERSION OF REPORT us Mendel Sung MD LAB PATHOLOGY ORDERABLES Fi nal Result PATHOLOGY [facility] 3rd Floor [place], [place] [phone] * Colonoscopy (10/16/2024 8:40 AM COMBINATION WORKER) Anatomical Region Laterality Modality Other Narrative Procedure Note Mendel Sung MD - 10/16/2024 8:40 AM CST [facility] ENDOSCOPY [facility] Patient Name: Juilo C Roberson Procedure Date: 10/16/2024 8:40 AM Date of : 1950 Admit Type: Outpatient Age: 74 Gender: Male Attending MD: Mendel Sung M.D. Room: [facility] ENDOSCOPY ROOM 8 Note Status: Finalized [...] The scope was passed under direct vision.The [id number] endoscope was introduced through the anus and advanced to the cecum, identified by appendiceal orifice and ileocecal valve. The colonoscopy was performed without difficulty. The patient tolerated the procedure well. The qualityof the bowel preparation was evaluated using the BBPS (Sterling Bowel Preparation Scale) with scores of:Right Colon [...] During normal business hours - [facility] [place] Coord[facility]: [phone]. After hours, evening, nights, weekends and holidays- Please call the hospital pig machine operator helper at and ask for the GI fellow gas operations analyst. Electronically signed by Mendel Sung MD Mendel Sung M.D. 10/16/2024 9:23:20 AM . Number of Addenda: 0 Note Initiated On: 10/16/2024 8:40 AM us Mendel Sung MD ENDOSCOPY PROCEDURES Final Result * CTA Abdominal Aorta And Bilateral Iliofemoral Runoff (01/15/2024 10:28 AM COMBINATION WORKER) Anatomical Region Laterality Modality Body Bilateral Computed Tomogra phy 01/15/2024 11:5 2 AM COMBINATION WORKER Addenda Addendum by Jason Mahan MD on 03/03/2024 3:45 PM CDT Follow up Cardiothoracic Surgery consult and PET/CT done on 02/07/24. Margarita CHAVEZ, RN. Edited by: Margarita Mccabe Electronically signed by: Jason Mahan M.D. Impressions 01/15/2024 1:08 PM COMBINATION WORKER 1. Spiculated soft tissue nodule in [...] Jason Mahan M.D. Narrative 01/15/2024 1:08 PM COMBINATION WORKER EXAMINATION: CT ANGIOGRAPHY OF THE ABDOMEN, [...] it. Electronically signed by: Jason Mahan M.D. us Garo Barton MD IMG CT PROCEDURES Edited Resul t - Final from Last 3 Months or Most Recently Relevant to Health Maintenance Insurance MEDICARE [facility] MEDICARE [facility] MEDICARE [facility] Advance Directives For more information, please contact: [phone] Documents on File Type Date Recorded Patient Spike Machine Operator Expl anation Power of Tilt Tray Driver 07/25/2024 6:24 AM * Full Code (Latest [...] 4:37 PM 09/04/2019 7:06 PM Care Teams Merchandise Presentation Manager Relationship Specialty Start Date End Date Maykel Gramajo MD PCP - General 02/09/17 Hernan Hernandez MD Surgeon Vascular Surgery 09/04/19 Maykel Ramires MD [address] [place], [place] [id number] Referring Physician Cardiology 07/25/24 Maykel Villalpando MD [address] [place] [address] Consulting Physician Cardiothoracic Surgery 07/25/24
--- OUTSIDE RECORDS SUMMARY | 2025-01-06 12:12 | XMS_ITS | Encounter Summary ---
Author Organization [facility] Address [address] [place] [address] Care Team Providers Care Supervisor Felling Bucking Name Role Phone Maykel Gramajo MD Primary Care Provider [phone] Encounter Details Date Type Department Care Team (Late st Contact Info) Description 08/19/2018 Lab Requisition [facility] [address] [place] [id number] Unlisted, Ordering Provider, Social History Tobacco Use [...] - 6.3 % 08/22/2018 11:58 AM CDT [facility] Estimated Average Glucose 120 mg/dL 08/22/2018 11:58 AM CDT [facility] Comment: HbA1c Interpretation: Treatment target values recommended by ADA and other clinical organizations should be used to evaluate metabolic control in patients. Treatment Target Values: Normal : < 5.7% Pre-diabetes: 5.7-6.4% Diabetes: Equal to or greater than 6.5% Reference: [place] Diabetes Association Standards of Care in Diabetes -2014 In patients 70 years and older consider HbA1c target range of 7.0-7.5% Reference: Diabetes Mellitus in Older People: Position Statement on behalf of the International Association of Gerontology and Geriatrics (IAGG), the Diabetes Working Republican for Older People (EDWPOP), and the International Task Force of Experts in Diabetes. Pj Brandon, et al. J [place] Medical Directors Association. 2012 Test results diagnostic [...] - CHEM ISTRY ORDERABLES Performing Organization Address City/State/[facility] Co de Phone Number [address] [phone] * (ABNORMAL) LIPID PROFILE (08/22/2018 7:20 AM CDT) [facility] Signature Cholesterol Total 93 <200 mg/dL 08/22/2018 10:49 AM [facility] HDL 32(L) >40 mg/dL 08/22/2018 10:49 AM [facility] Comment: ATP III Classification of HDL Cholesterol: <40 mg/dL: Considered a major risk factor. >60 mg/dL: Considered a negative risk factor. LDL Calculated 36 <100 mg/dL 08/22/2018 10:49 AM [facility] Comment: ATP III Classification of LDL Cholesterol: <100 mg/dL: Optimal 100 - 129 mg/dL: Near Optimal/Above Optimal 130 - 159 mg/dL: Borderline High 160 - 189 mg/dL: High >190 mg/dL: Very High Triglycerides 125 <150 mg/dL 08/22/2018 10:49 AM CDT [facility] Comment: ATP III Classification of Triglycerides: <150 mg/dL: Normal 150 - 199 mg/dL: Borderline High 200 - 400 mg/dL: High >500 mg/dL: Very High Blood BLOOD SPECIMEN / Unknown Lab Venipuncture / Unknown 08/22/2018 7:20 AM CDT 08/22/2018 9:54 AM CDT Ordering Provider Unlisted LAB - CHEM ISTRY ORDERABLES [address] [phone] * GLUCOSE VITALITY (08/22/2018 7:20 AM CDT) Glucose 101 70 - 115 mg/dL 08/22/2018 10:23 AM CDT [facility] Blood BLOOD SPECIMEN / Unknown Lab Venipuncture / Unknown 08/22/2018 7:20 AM CDT 08/22/2018 9:54 AM CDT Ordering Provider Unlisted LAB - CHEM ISTRY ORDERABLES [address] [phone] documented in this encounter Visit Diagnoses Not on filedocumented in this encounter Care Teams Supervisor Felling Bucking Relationship Specialty Start Date End Date Maykel Gramajo MD [address] [place] [phone] PCP - General 07/28/20 documented as of this encounter
--- OUTSIDE RECORDS SUMMARY | 2025-01-06 12:12 | XMS_ITS | Clinical Summary ---
Author Organization [facility] Address [address] [place] [address] Care Team Providers Care Shingles Roofer Name Role Phone Maykel Gramajo MD Primary Care Provider [phone] Source Comments [facility],non-owned Affiliates and Associated Physician Practices is amultiple site organization consisting of ambulatory clinics and hospital sitesin [place], [place], [place] and [place]. This disclosure is being madepursuant to the Care Everywhere program and may not contain all information available regarding this patient. Last updated 18.[facility] Allergies Active Allergy Reactions Criticality Noted Date [...] (01/24/2021): Added automatically from request for surgery [id number] Chronic rhinitis 08/21/2019 History of epistaxis 08/21/2019 Aneurysm of popliteal artery 08/19/2019 Overview (01/24/2021): Added automatically from request for surgery [id number] Added automatically from request for surgery [id number] Last Assessment & Plan: - S/p status post self-expanding covered stent ([place] Viabahn 9 x 150 mm) placement to [...] the future Coronary artery disease invo lving three affiliated coronary artery of three affiliated heart without angina pectoris 03/28/2018 Overview (01/24/2021): [...] this topic Medical Devices Implanted Type Area Vulcanizer Operator Device Identifier Shelf Expiration Date Model / Serial / Lot Lens Iol 0 D +22.5 [employer] Mod [employer] Acrsf Iq - [id number] Implanted:Qty: 1 on 02/23/2021 by Hernan Hansen MD at [facility] Right: [employer] 06/21/2023 [id number] / [id number] / Lens Iol 0 D +28.0 Ovidio Mod L Acrsf Iq - [id number] Implanted:Qty: 1 on 05/18/2021 by Hernan Hansen MD at [facility] Left: [employer] 11/22/2023 [id number] / [id number] / Care Teams Shingles Roofer Relationship Specialty Start Date End Date Maykel Gramajo MD [address] [place] [address] PCP - General 07/28/20
--- OUTSIDE RECORDS SUMMARY | 2025-01-06 12:12 | XMS_ITS | Patient Health Summary ---
Author Organization [facility] Address [address] [place] [address] Care Team Providers Care Brass Sorter Name Role Phone Maykel Gramajo MD Primary Care Provider [phone] [facility],non-owned Affiliates and Associated Physician Practices is amultiple site organization consisting of ambulatory clinics and hospital sitesin [place], [place], [place] and [place]. This disclosure is being madepursuant to the Care Everywhere program and may not contain all information available regarding this patient. Last updated 18.[facility] Allergies * Lactose(GI Discomfort) -Low Criticality Medications [...] artery 08/19/2019 Coronary artery disease invo lving [place] coronary artery of [place] heart without angina pectoris 03/28/2018 Hyperlipidemia 03/28/2018 [...] PM CDT Medical Devices Implanted Type Area Transactional Attorney Device Identifier Shelf Expiration Date Model / Serial / Lot Lens Iol 0 D +22.5 Ovidio Mod L Acrsf Iq - [id number] Implanted:Qty: 1 on 02/23/2021 by Hernan Hansen MD at [facility] Right: [employer] 06/21/2023 [id number] / [id number] / Lens Iol 0 D +28.0 [employer] Mod L Acrsf Iq - [id number] Implanted:Qty: 1 on 05/18/2021 by Hernan Hansen MD at [facility] Left: [employer] 11/22/2023 [id number] / [id number] / Procedures * EXTRACTION CATARACT WITH [...] PROFILE(Performed 10/03/2014) * GLUCOSE VITALITY(Performed 10/03/2014) * [facility]Performed 08/30/2013) * GLUCOSE VITALITY(Performed 08/30/2013) * GLUCOSE(Performed [...] - 115 mg/dL 08/22/2018 10:23 AM CDT [facility] Blood BLOOD SPECIMEN / Unknown Lab Venipuncture / Unknown 08/22/2018 7:20 AM CDT 08/22/2018 9:54 AM CDT Ordering Provider Unlisted LAB - CHEM ISTRY ORDERABLES Performing Organization Address City/State/[facility] Co de Phone Number [address] [phone] * HEMOGLOBIN A1C (08/22/2018 7:20 AM CDT) Only the most recent of5 resultswithin the time period is included. Hemoglobin A1c 5.8 4.4 - 6.3 % 08/22/2018 11:58 AM CDT [facility] Estimated Average Glucose 120 mg/dL 08/22/2018 11:58 AM CDT [facility] Comment: HbA1c Interpretation: Treatment target values recommended by ADA and other clinical organizations should be used to evaluate metabolic control in patients. Treatment Target Values: Normal : < 5.7% Pre-diabetes: 5.7-6.4% Diabetes: Equal to or greater than 6.5% Reference: [place] Diabetes Association Standards of Care in Diabetes -2014 In patients 70 years and older consider HbA1c target range of 7.0-7.5% Reference: Diabetes Mellitus in Older People: Position Statement on behalf of the International Association of Gerontology and Geriatrics (IAGG), the Diabetes Working Democrat for Older People (EDWPOP), and the International Task Force of Experts in Diabetes. Pj Brandon et al. J [place] Medical Directors Association. 2012 Test results diagnostic [...] - CHEM ISTRY ORDERABLES Performing Organization Address [facility]/State/[facility] Co de Phone Number [address] [phone] * (ABNORMAL) LIPID PROFILE (08/22/2018 7:20 AM [...] Triglycerides 125 <150 mg/dL 08/22/2018 10:49 AM [facility] Comment: ATP III Classification of Triglycerides: <150 mg/dL: Normal 150 - 199 mg/dL: Borderline High 200 - 400 mg/dL: High >500 mg/dL: Very High Blood BLOOD SPECIMEN / Unknown Lab Venipuncture / Unknown 08/22/2018 7:20 AM CDT 08/22/2018 9:54 AM CDT Ordering Provider Unlisted LAB - CHEM ISTRY ORDERABLES Performing Organization Address [facility]/ZIP Co de Phone Number [facility] [address] [phone] * VITALITY SCREEN (BEAKER) (08/16/2017 7:28 AM CDT) Only the most recent of4 resultswithin the time period is included. Blood specimen (specimen) BLOOD SPECIMEN / Unknown 08/16/2017 7:28 AM CDT Narrative [facility] - 08/16/2017 12:49 PM CDT The following orders were created for panel order [facility] Vitality Screening. Procedure Abnormality Status --------- ------ Hemoglobin A1c[[id number]] Final result Fasting Glucose[[id number]] Normal Final result Lipid Panel[[id number]] Abnormal Final result Please view results for these tests on the individual orders. Historical Provider LAB - CHEMISTRY O MARLONERALAWSON Performing Organization Address City/[facility]/ZIP Co de Phone Number [facility] [address] * (ABNORMAL) [facility] (08/30/2013 8:23 AM CDT) Cholesterol Total 133 <200 mg/dL [facility] HDL 35(L) > OR = 40 mg/dL [facility] Comment: ATP III classification of HDL cholesterol: <40 mg/dL Low; considered a major risk factor >60 mg/dL High; considered a negative risk factor Triglycerides 171(H) <150 mg/dL [facility] Comment: ATP III classification of Triglycerides: < 150 mg/dL Normal triglycerides 150-199 mg/dL Borderline-high triglycerides 200-400 mg/dL High triglycerides > 500 mg/dL Very high triglycerides LDL Calculated 64 0 - 100 mg/dL [facility] Comment: ATP III classification of LDL cholesterol: <100 mg/dL Optimal 100-129 Near optimal/above optimal 130-159 Borderline high 160-189 High >190 Very high Hemoglobin A1c 5.4 4.4 - 6.3 % [facility] Estimated Average Glucose 108 mg/dL [facility] 08/30/2013 8:23 AM CDT 08/30/2013 9:48 AM CDT Historical Provider LAB - CHEMISTRY O JOAQUÍN [address] [phone] * GLUCOSE (08/24/2012 8:32 AM CDT) Glucose 99 70 - 115 mg/dL [facility] 08/24/2012 8:32 AM CDT 08/27/2012 7:58 AM CDT Historical Provider LAB - CHEMISTRY O JOAQUÍN Performing Organization Address City/[facility]/ZIP Co de Phone Number [address] [phone] * CHOLESTEROL BLOOD (08/24/2012 8:32 AM CDT) Cholesterol Total 144 <200 mg/dL [facility] 08/24/2012 8:32 AM CDT 08/27/2012 7:58 AM CDT Historical Provider LAB - CHEMISTRY O JOAQUÍN [address] [phone] Care Teams Brass Sorter Relationship Specialty Start Date End Date Maykel Gramajo MD [address] [place] [address] [phone] PCP - General 07/28/20
--- OUTSIDE RECORDS SUMMARY | 2025-01-06 12:12 | XMS_ITS | Referral Summary ---
Author Organization [facility] Address [address] [place] [address] Care Team Providers Care Hand Ornament Maker Name Role Phone Maykel Gramajo MD Primary Care Provider [phone] Source Comments [facility],non-owned Affiliates and Associated Physician Practices is amultiple site organization consisting of ambulatory clinics and hospital sitesin [place], [place] and [place]. This disclosure is being madepursuant to the Care Everywhere program and may not contain all information available regarding this patient. 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 Overview (01/24/2021): Added automatically from request for surgery [id number] Added automatically from request for surgery [id number] Last Assessment & Plan: - S/p status post self-expanding covered stent ([place] Viabahn 9 x 150 mm) placement to [...] the future Coronary artery disease invo lving [place] coronary artery of [place] heart without angina pectoris 03/28/2018 Overview (01/24/2021): [...] on file Medical Devices Implanted Type Area Market Analyst Device Identifier Shelf Expiration Date Model / Serial / Lot Lens Iol 0 D +22.5 [employer] Mod L Acrsf Iq - [id number] Implanted:Qty: 1 on 02/23/2021 by Hernan Hansen MD at [facility] Right: [employer] 06/21/2023 [id number] / [id number] / Lens Iol 0 D +28.0 [employer] Mod L Acrsf Iq - [id number] Implanted:Qty: 1 on 05/18/2021 by Hernan Hansen MD at [facility] Left: [employer] 11/22/2023 [id number] / [id number] / Care Teams Hand Ornament Maker Relationship Specialty Start Date End Date Maykel Gramajo MD [address] [place] [phone] [facility] - General 07/28/20
--- OUTSIDE RECORDS SUMMARY | 2025-01-06 12:12 | XMS_ITS | Encounter Summary ---
Author Organization [facility] Address [address] [place] [address] Phone Care Team Providers Care Webbing Inspector Name Role Phone Maykel Gramajo MD Primary Care Provider [phone] Hernan Hernandez MD Unavailable [phone] Maykel Ramires MD Unavailable [phone] Maykel Villalpando MD Unavailable [phone] Reason for Visit * Reason Onset Date Comments GI Advice re: PSMA Scan message(s) 01/06/2025 Encounter Details Date Type Department Care Team (Late st Contact Info) Description 01/06/2025 Documentation [facility] Gastroenterology [facility] [address] [place] [address] Mansi Melo, RN GI Advice re: PSMA Scan message(s) Social History Tobacco Use Types Packs/Day Years Used Date Smoking Tobacco: Former Cigarettes 1.5 35 0 07/13/1970 - 08/03/2005 Passive Smoke Exposure: Never Smokeless Tobacco: Never Alcohol Use Standard Drinks/Week Comments No 0 [...] on file Legal Sex Male 7:01 PM ANALYSIS ANALYST Gender Identity Not on file Sexual Orientation Not on file documented as of this encounter Progress Notes * Mansi Melo RN - 01/06/2025 9:58 AM CST [employer] message sent to patient regarding recommendations. ===View-only below this line=== ----- Message ----- From: Mendel Sung MD Sent: 01/05/2025 2:07 PM ANALYSIS ANALYST To: Mansi Melo RN Subject: FW: PSMA Scan He should do whatever he needs to do for the cancer. I can discuss in more detail at his appt. ----- Message ----- From: Mansi Melo RN Sent: 01/05/2025 11:48 AM ANALYSIS ANALYST To: Mansi Melo RN; * Subject: FW: PSMA Scan Please advise. ----- Message ----- From: Gume Roberson Jr. Sent: 01/04/2025 3:29 PM ANALYSIS ANALYST To: [place] Subject: PSMA Scan Dr. Sung, I had a recent biopsy and PSMA scan. The scan was performed at [facility] in [facility]. Ihave been diagnosed with prostate cancer. If you have access to the scan results I would be interested in knowing how the cancer will impact my digestive track. I have an appointment with you on January 12. Gume Roberson YSIS ANALYST documented in this encounter Plan of Treatment Not on file documented as of this encounter Visit Diagnoses Not on filedocumented in this encounter Care Teams Webbing Inspector Relationship Specialty Start Date End Date Maykel Gramajo MD PCP - General 02/09/17 Hernan Hernandez MD Surgeon Vascular Surgery 09/04/19 Maykel Ramires MD [address] [place], [place] [id number] Referring Physician Cardiology 07/25/24 Maykel Villalpando MD [address] [place] [address] Consulting Physician Cardiothoracic Surgery 07/25/24 documented as of this encounter
== END 2025-01-06 10:20 | disposition home or self-care (01) ==
LOC: ANHSURGERY 10:27
PROVIDERS: PCP Family Medicine; Visit Provider Surgery
DX: Z01.812 Encounter for preprocedural laboratory examination (principal); C61 Malignant neoplasm of prostate
CPT/HCPCS: 36415; 85610; 85730

== ENCOUNTER 2025-01-14 00:34 | Day surgery (SDC) | payer MEDICARE, SELFPAY ==
[2025-01-01 11:14] VITALS: BMI 26.4
--- NOTE | 2025-01-01 11:25 | PC.NURSE ---
Addendum entered by Bibiana Sheth RN 01/01/25 11:31: PT to call Dr. Arenas with his new Medication started by Oncologist to notify w preop for any additional questions ELIZABETH Original Note: Report to the Outpatient Waiting Room, entrance under the green pavilion located off [facility], at time __11:00am on date __01/14/25 . Planned Procedure Time: __1:00pm .? Time changes happen often and if your time is changed the preop area will call you the afternoon before. - You and your visitor will be asked to self-screen and do not enter if you have any COVID symptoms. Please call surgeon if you need to reschedule. - A mask is optional within the hospital at this time. Patients may have clear liquids (water, carbonated beverages, clear teas, apple juice) until 3 hours prior to surgery with a maximum of 20 ounces. - No food from midnight until time of surgery and no smoking, or chewing tobacco (or any form of nicotine). No chewing gum, candy or mints. (10:00am) Take only the following medications with a SIP of water on the morning of surgery: Alprazolam, Prednisone, Tylenol if needed DO NOT STOP ANY OF YOUR OTHER PRESCRIPTION MEDICATIONS PRIOR TO SURGERY EXCEPT THE FOLLOWING Hold all vitamins and supplements for 3 days per anesthesiologist.Date to take last dose is 01/10/25 Medications to discontinue per physician __HOLD Xarelto for 3 day prior to surgery per DR Arenas Date to take last dose___01/10/25 Please no make-up, nail kinyarwanda, hairspray, perfume, deodorant, or body powder the day of surgery.? No jewelry (including any body piercings) or valuables the day of surgery, leave them at home.? Please take a shower or bath the night before, or the morning of, surgery with an antibacterial soap.? Wear comfortable, loose fitting clothing.? - Jewelry must be removed prior to entering the operating room.? Rings and piercings that are not removed may be cut off. - The hospital will not accept responsibility for valuables.? - Please leave all valuables, including medications, at home the day of surgery. If you are going home after surgery, a licensed dedicated truck driver must drive you home.? - NO public transportation without another adult if you receive anesthesia. - We recommend that an adult stay with you for 24 hours following discharge. - We also recommend that you do not drive, make important decision, drink alcoholic beverages, or take any drugs that were not prescribed by your health care provider for at least 24 hours after your discharge time. Follow any additional instructions given to you from your surgeon. Telephone instructions given to __patient and asked if any additional questions and then verbalized understanding. Patient advised to call surgeon office or pre surgery nurse liaison [phone] if any additional questions.
--- NOTE | 2025-01-12 15:15 | P.SS_ITS ---
Same Day Admit/Disch: HPI History of Present Illness Chief complaint: prostate cancer Narrative: Gume Roberson Jr. is a 74 year old male who was diagnosed with prostate cancer last October. Patient has opted to undergo chemo radiation therapy. He is taken to surgery at this time for placement of a Port-A-Cath for administration of chemotherapy. 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 [facility] Past Medical History Medical History Squamous cell carcinoma lung Anxiety Fistula Bundle branch block, right COPD (chronic obstructive pulmonary disease) Coronary artery disease Proctitis Ulcerative colitis Surgical History Surgical History History of lobectomy of lung S/P pneumonectomy H/O heart bypass surgery History of colon surgery Family History Family History Father Asthma Mother Acute myocardial infarction Son Carcinoma of colon Other Family history of cardiovascular disease Social History Social History Smoking packs per day: 2 Smoking cigarettes per day: 40.0 Years smoked: 35 Smoking pack-years: 70.00 Smoking status: Former smoker Tobacco type: cigarettes Second hand tobacco smoke exposure: No Smoking end date: 11/12/04 Alcohol intake: never Lack of Transportation: No Lack of Food: Never True Current Housing: I Have Housing Concerned About Future Housing: No Difficulty Paying Gas/Electric Bills: No Difficulty Paying for Meds: No Currently Unemployed: No Education: Bachelor's Degree Difficulty w/ Childcare or Family Care: No Living arrangements: with family Additional living arrangements comments: Spiritual care concerns: No Same Day Admit/Disch: Med Pre-admit Medications Home Medications ?Medication ?Instructions ?Recorded ?Confirmed ?Type aspirin 81 mg tablet,delayed 81 mg PO DAILY 10/17/19 01/14/25 History release (Josselin Low Dose Aspirin) cholecalciferol (vitamin D3) 125 5,000 unit PO DAILY 10/17/19 01/14/25 History mcg (5,000 unit) capsule mesalamine 1.2 gram tablet,delayed 2.4 gm PO DAILY 10/17/19 01/14/25 History release (Lialda) metoprolol succinate 25 mg 25 mg PO HS 10/17/19 01/14/25 History tablet,extended release 24 hr (Toprol XL) multivitamin 1 tablet PO DAILY 10/17/19 01/14/25 History albuterol sulfate 90 mcg/actuation 2 inhalation inhalation Q4H PRN 11/25/19 01/01/25 Rx aerosol inhaler (ProAir HFA) shortness of breath or wheezing #8.5 grams nitroglycerin 0.4 mg sublingual 0.4 mg sublingual DIRECTED 09/17/23 01/01/25 History tablet triamcinolone acetonide 0.1 % 1 applic topical BID #80 grams 02/13/24 01/14/25 Rx topical cream rivaroxaban 10 mg tablet (Xarelto) 10 mg PO HS 06/26/24 01/14/25 History pregabalin 100 mg capsule (Lyrica) 100 mg PO Q12H 90 days #180 caps 08/29/24 01/14/25 Rx tamsulosin 0.4 mg capsule 0.4 mg PO QHS #90 caps 11/24/24 01/14/25 Rx fenofibrate 160 mg tablet See Rx Instructions .Route 12/01/24 01/01/25 Rx .COMPLEX #90 tabs simvastatin 20 mg tablet (Zocor) 20 mg PO HS #90 tabs 12/01/24 01/14/25 Rx alprazolam 0.25 mg tablet (Xanax) 0.25 mg PO TID PRN anxiety #90 tabs 12/30/24 01/14/25 Rx abiraterone 250 mg tablet 1,000 mg PO DAILY 01/01/25 01/14/25 History prednisone 5 mg tablet 5 mg PO Q12H 01/01/25 01/14/25 History oxycodone-acetaminophen 5 mg-325 0.5 - 1 tablet PO Q4H PRN pain #10 01/14/25 Rx mg tablet (Percocet) tabs Review of Systems Review of Systems All systems reviewed & are unremarkable except as noted in HPI and below (HPI) Exam Const: General: comfortable, no acute distress, alert and awake HENMT: Head: normocephalic and atraumatic Mouth: Yes Normal oral and palatal mucosa present Eyes: Conjunctivae: conjunctivae normal Pupils: Equal, round and reactive pupils present EOM: EOMs intact bilaterally Neck: Neck: normal visual inspection, no lymphadenopathy and nontender Chest: Chest palpation & inspection: normal inspection of the chest, normal palpation of entire chest wall, no crepitus, no masses, no tenderness, No Pa cemaker present and No rash Resp: Effort & Inspection: normal respiratory effort Auscultation: clear to auscultation bilaterally Cardio: Rate: regular rate Rhythm: regular rhythm Heart sounds: no gallops, no murmurs and no rubs GI: Inspection: non-distended GI Palp: Yes Soft to palpation, No Tenderness to palpation present (GI), No Hepatomegaly present and No Splenomegaly present Skin: Lesions: no lesions Rashes: no rashes Neuro: General: no focal motor deficits and CN's II-XI intact bilaterally Cranial nerves: Yes Equal, round and reactive pupils present, Yes Bilaterally intact EOM present, Yes facial symmetry and Yes Midline tongue present Speech: normal speech Motor exam (neuro): 5/5 motor strength present throughout and Motor abnormalities not present Extrem: General: no clubbing, cyanosis or edema and edema Psych: Affect: normal affect Thought process: Normal thought process present Insight: Good insight present (Psych) DS: Summary Time Spent with Patient Time attestation: Total time spent providing and/or coordinating discharge services: DS: Admitting Diagnosis Discharge Date 01/14/2025 Admitting Diagnosis * Prostate cancer-patient plans to undergo chemoradiation therapy * Inadequate venous access for chemotherapy-we plan to go ahead with placement of a Port-A-Cath using ultrasound and under fluoroscopy as an outpatient. The procedure, risks, benefits have been discussed. All questions were answered. He understands and agrees to go ahead. * Stage I squamous cell carcinoma right lung status post right middle lobectomy and wedge resection right upper lung * History DVT * Chronic anticoagulation * Former smoker * COPD DS: Discharge Diagnosis Discharge Diagnosis (1) Prostate cancer: Code(s): C61 - Malignant neoplasm of prostate Status: Chronic (2) Admission for fitting of Port-A-Cath: Code(s): Z45.2 - Encounter for adjustment and management of vascular access device Status: Acute Assessment and Plan: Right internal jugular Port-A-Cath placed 01/14/[address] Arenas Discharge Plan Discharge Patient Disposition: Home, Self-Care Discharge Instructions: Medications: Patient to resume all previous home medication Prescriptions to be given to patient at discharge Treatments: May bathe or shower tomorrow. May return to work or driving in 24 hours unless taking narcotic pain medications Follow-up with medical oncologist for chemotherapy. Only need to see Surgeon for follow up if having problems. Patient Language: Khmer Stand Alone Forms: General Discharge Instructions Follow-up/Referrals: Khai Walsh MD [Physician] - Keep Reg. Scheduled Appt. Discharge Medications: New oxycodone-acetaminophen [Percocet] 5-325 mg tablet 0.5 - 1 tablet PO Q4H PRN (Reason: pain) Qty: 10 0RF Continued aspirin [Josselin Low Dose Aspirin] 81 mg tablet,delayed release (DR/EC) 81 mg PO DAILY mesalamine [Lialda] 1.2 gram tablet,delayed release (DR/EC) 2.4 gm PO DAILY multivitamin Tablet 1 tablet PO DAILY metoprolol succinate [Toprol XL] 25 mg tablet extended release 24 hr 25 mg PO HS cholecalciferol (vitamin D3) 5,000 unit capsule 5,000 unit PO DAILY nitroglycerin 0.4 mg tablet, sublingual 0.4 mg sublingual DIRECTED prednisone 5 mg tablet 5 mg PO Q12H abiraterone 250 mg tablet 1,000 mg PO DAILY Rx Instructions: must be taken on empty stomach, at least 1 hr before or 2 hrs after a meal/food albuterol sulfate [ProAir HFA] 90 mcg/actuation HFA aerosol inhaler 2 inhalation INHALATION Q4H PRN (Reason: shortness of breath or wheezing) Qty: 8.5 0RF triamcinolone acetonide 0.1 % cream 1 applic TOPICAL BID Qty: 80 1RF Lyrica 100 mg capsule 100 mg PO Q12H 90 Days Qty: 180 1RF Patient Comments: Nightly only unless lots pain tamsulosin 0.4 mg capsule 0.4 mg PO QHS Qty: 90 1RF fenofibrate 160 mg tablet See Rx Instructions .ROUTE .COMPLEX Qty: 90 3RF Dose Instruction: TAKE 1 TABLET BY MOUTH DAILY Rx Instructions: TAKE 1 TABLET BY MOUTH DAILY simvastatin [Zocor] 20 mg tablet 20 mg PO HS Qty: 90 0RF alprazolam [Xanax] 0.25 mg tablet 0.25 mg PO TID PRN (Reason: anxiety) Qty: 90 1RF Held Xarelto 10 mg tablet 10 mg PO HS Hold Instructions: Resume on 01/16/25. Patient Comments: HOld [address] Arenas
--- NOTE | ~2025-01-14 | XR_ITS ---
EXAMINATION: XR fl guide central line place DATE: 01/14/2025 15:06 INDICATION: Port placement. TECHNIQUE: 2 intraoperative fluoroscopic views of the chest were obtained. I was not present. Fluoros copy exposure time was 1 minute 24 seconds. COMPARISON: PET/CT 12/16/2024 FINDINGS: There is a right internal jugular port with tip at the superior cavoatrial junction. Median sternotomy wires are noted. IMPRESSION: 1. Port tip at the superior cavoatrial junction. Reviewed, dictated and finalized at location A. N ELEVATOR WORKER
--- NOTE | ~2025-01-14 | XR_ITS ---
EXAMINATION: XR chest port-a-cath/central DATE: 01/14/2025 15:17 INDICATION: Port placement. TECHNIQUE: A single frontal view of the chest was obtained. COMPARISON: Chest 2 views 12/08/2018 FINDINGS: There is mild atelectasis at the lung bases. No pleural effusion or pneumothorax. There is a staple line in right upper lobe. The heart size is normal. Median sternotomy wires and mediastinal surgical clips are seen, likely from prior coronary artery bypass grafting. There is a right internal jugular port with tip at superior cavoatrial junction. IMPRESSION: 1. Port tip at superior cavoatrial junction. Reviewed, dictated and finalized at location A. CING SPECIALIST
--- OUTSIDE RECORDS SUMMARY | 2025-01-14 00:39 | XMS_ITS | Referral Summary ---
Author Organization [facility] Address [address] [place] [address] Care Team Providers Care Colon And Rectal Surgeon Name Role Phone Maykel Gramajo MD Primary Care Provider [phone] Hernan Hernandez MD Unavailable Maykel Ramires MD Unavailable Maykel Villalpando MD Unavailable [phone] Encounters Date Type Department Care Team Description 01/12/2025 11:15 AM FILTER CHANGER Office Visit [facility] [address] [place] [address] 12th [place] [address] [place] [address] Mendel Sung MD PAD (peripheral artery disease) (CMS/HCC) (HCC) (Primary Dx); Coronary artery disease of chinik artery of chinik heart with stable angina pectoris (CMS/HCC) (HCC); 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 (CMS/HCC) (HCC); Prostate cancer metastatic to bone (HCC) 01/06/2025 Documentation [facility] [address] [place] [address] [place] [address] [place] [id number] Mansi Melo, NAHUM GI Advice re: PSMA Scan message(s) 10/16/2024 8:45 AM FILTER CHANGER - 10/16/2024 9:30 AM FILTER CHANGER Surgery [facility] [address] [place] [address] Mendel Sung MD COLON BIOPSY 10/16/2024 8:41 AM FILTER CHANGER Anesthesia Event [facility] [address] [place] [address] Tomasz Maharaj MD 10/16/2024 7:34 AM FILTER CHANGER - 10/16/2024 10:09 AM FILTER CHANGER Hospital Encounter [facility] [place] [address] [place] [address] Mendel Sung MD 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 (CMS/HCC) (HCC) Discharge Disposition: Discharge to home or self care from Last 3 Months Allergies Active Allergy Reactions Criticality Noted Date Comments Lactose Stomach upset Low 07/09/2019 Medications multivitamin tablet tablet take 1 Tablet by oral route every day with food 0 0 4 Active loratadine (CLARITIN) 10 mg tablet take 1 [...] 0 2 Active pregabalin (LYRICA) 100 mg capsuleIndications :neuropathy Take 1 capsule (100 mg total) by mouth nightly 9 Active acetaminophen (TYLENOL) 325 mg tabletIndications: Fever,Pain Take 2 tablets (650 mg total) by mouth every 4 (four) hours as needed for pain 30 tablet 9 Active PROAIR HFA 90 mcg/actuation inhaler Inhale 2 puffs every 4 (four) hours as needed for shortness of breath 0 Active aspirin 81 mg enteric coated tabletIndications: heart health Take 1 tablet (81 mg total) by mouth daily after dinner Active triamcinolone (KENALOG) 0.1 % creamIndications:S kin Inflammation Apply topically as needed prn 0 [...] ONCE DAILY 90 tablet 3 4 Active HYDROcodone-acetam inophen (NORCO) 5-325 mg per tablet Take by mouth every 6 (six) hours as needed 4 Active mesalamine (LIALDA) 1.2 gram EC tabletIndications: 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 (CMS/HCC) (HCC) TAKE 3 TABLETS BY MOUTH DAILY 270 tablet 3 5 Active Zytiga 250 mg tablet daily 5 Active predniSONE (DELTASONE) 5 mg tablet 5 Active Active Problems Patient Care Coordination [...] surgical evaluation. Problem Noted Date Diagnosed Date Prostate cancer metastatic to bone 01/12/2025 Nonrheumatic aortic valve stenosis 06/02/2024 HTN (hypertension) [...] to consider that. 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 Overview (12/09/2019): Added automatically from request for surgery [id number] Assessment & Plan (06/11/2020 5:49 PM CDT): - S/p status post self-expanding covered stent ([employer] Viabahn 9 x 150 mm) placement to [...] History of epistaxis 08/21/2019 Popliteal artery aneurysm ([facility]) 08/19/2019 Overview (08/19/2019): Added automatically from request for surgery [id number] Coronary artery disease of n ative artery of chinik heart with stable angina pectoris ([facility]) 03/28/2018 Assessment & Plan (03/17/2024 9:27 AM [...] false-positive. Assessment & Plan (10/18/2020 5:19 PM FILTER CHANGER): No symptoms of myocardial ischemia, albeit with [...] made. Assessment & Plan (10/18/2020 5:19 PM FILTER CHANGER): He is on chronic lipid-lowering therapy. No [...] control. No changes made. Chronic ulcerative pancolitis ([facility]) 04/20/20 11 Immunizations Immunization Administration Dates Next [...] on file Legal Sex Male 7:01 PM FILTER CHANGER Gender Identity Not on file Sexual Orientation Not on file Last Filed Vital Signs Vital Sign Reading Time Taken Comments Blood Pressure 145/68 01/12/2025 10:40 AM FILTER CHANGER Pulse 66 01/12/2025 10:40 AM FILTER CHANGER Temperature 36.5 C (97.7 F) 01/12/2025 10:40 AM FILTER CHANGER Respiratory Rate 18 10/16/2024 9:51 AM FILTER CHANGER Oxygen Saturation 95% 10/16/2024 9:51 AM FILTER CHANGER Inhaled Oxygen Concentration - - Weight 79.4 kg (175 lb) 01/12/2025 10:40 AM FILTER CHANGER Height 175.3 cm (5' 9 ) 01/12/2025 10:40 AM FILTER CHANGER Body Mass Index 25.84 01/12/2025 10:40 AM FILTER CHANGER Plan of Treatment Not on file Medical Devices Implanted Type Area Coding Clerk Device Identifier Shelf Expiration Date Model / Serial / Lot Wl [employer] [id number] Viabahn 9mm 9fr 15cm 120cm Iliac Artery Stent Endoprosthesis - [id number] - [id number] Implanted:Qty: 1 on 09/03/2019 by Hernan Hernandez MD at [facility] Stent Wl [employer] [id number] 07/22/2021 [id number] / [id number] / Description:Distal SFA Popli teal Artery Wl [employer] [id number] Viabahn 9mm 9fr 10cm 120cm Delivery System Tip To Hub Deployment - [id number] - [id number] Implanted:Qty: 1 on 12/31/2019 by Hernan Hernandez MD at [facility] Stent Right: Leg Wl [employer] [id number] 06/10/2022 [id number] / [id number] / [employer] Device Vascular Closure Femoral Artery Bioabsorbable Dual Method Vascade 6-7fr Collagen [id number] - S0 - [id number] Implanted:Qty: 1 on 07/25/2024 by Sigifredo Das MD at [facility] Vascular Closure Device [employer] 04/21/2026 [id number] / 0 / [id number] Cordis Mynxgrip 5fr Balloon Catheter Integrate Sealant Lock Latex Free [id number] - S0 - [id number] Implanted:Qty: 1 on 07/25/2024 by Sigifredo Das MD at [facility] Vascular Closure Device [employer] 05/05/2026 [id number] / [id number] / [id number] Procedures Procedure Name Priority Date/Time Associated Diagnosis Comments SURGICAL PATHOLOGY Routine 10/16/2024 8: 57 AM FILTER CHANGER 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 (CMS/HCC) (HCC) COLON BIOPSY 10/16/2024 8:41 AM FILTER CHANGER 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 (CMS/HCC) (HCC) COLONOSCOPY 10/16/2024 8:40 AM FILTER CHANGER CTA ABDOMINAL AORTA AND BILATERAL ILIOFEMORAL RUNOFF Schedule Routine, Read Routine (OP Routine) 01/15/2024 10:28 AM FILTER CHANGER Popliteal artery aneurysm (CMS/HCC) (HCC) from Last 3 Months or Most Recently Relevant to Health Maintenance Results * Surgical pathology (10/16/2024 8:57 AM FILTER CHANGER) Tissue (Polyp(s), colon/colorectal, esophageal, gastric) 10/16/2024 8:57 AM FILTER CHANGER Tissue (Colon, Biopsy) 10/16/2024 9:05 AM FILTER CHANGER Tissue (Colon, Biopsy) 10/16/2024 9:06 AM FILTER CHANGER Tissue (Colon, Biopsy) 10/16/2024 9:07 AM FILTER CHANGER Tissue (Polyp(s), colon/colorectal, esophageal, gastric) 10/16/2024 9:08 AM FILTER CHANGER Narrative PATHOLOGY [facility] - 10/20/2024 1:25 PM FILTER CHANGER EPIC results best viewed via link to PDF [facility] [place] [address] Note to Patients: This report may contain [...] REPORT FINAL Patient Name: JULIO C ROBERSON JRManuela Gender: Rashaun : 1950 (Age: 74) Address: [address] [place] [id number] Hospital #: [id number] Taken:10/16/2024 Received:10/16/2024 Reported: 10/20/2024 Patient Type: [facility] Service: Gastroenterology Location: Physician(s): Anil Bhat M.D. [...] Surgical Pathology and Flow Cytometry Departments at [facility] as part of an ongoing water quality [...] Surgical Pathology and Flow Cytometry Departments of [facility]. It has not been cleared or approved by the U. S. Food and Drug Administration. IMAGES AND SCANNED DOCUMENTS, IF INCLUDED, ONLY VIEWABLE IN PDF VERSION OF REPORT us Mendel Sung MD LAB PATHOLOGY ORDERABLES Fi nal Result PATHOLOGY [facility] 3rd Floor [place], [place] [phone] * Colonoscopy (10/16/2024 8:40 AM FILTER CHANGER) Anatomical Region Laterality Modality Other Narrative Procedure Note Mendel Sung MD - 10/16/2024 8:40 AM [facility] Patient Name: Julio C Roberson Procedure Date: 10/16/2024 8:40 AM Date of : 1950 Admit Type: Outpatient Age: 74 Gender: Male Attending MD: Mendel Sung M.D. Room: [facility] 8 Note Status: Finalized Procedure: [...] scope was passed under direct vision.The CF [id number] endoscope was introduced through the anus and advanced to the cecum, identified by appendiceal orifice and ileocecal valve. The colonoscopy was performed without difficulty. The patient tolerated the procedure well. The qualityof the bowel preparation was evaluated using the BBPS ([place] Bowel Preparation Scale) with scores of:Right Colon [...] business hours - Please call theNurse Coordinator: [phone]. After hours, evening, nights, weekends and holidays- Please call the hospital asphalt paving machine operator at and ask for the GI fellow skilled nursing facilities professional. Electronically signed by Mendel Sung MD Mendel Sung M.D. 10/16/2024 9:23:20 AM . Number of Addenda: 0 Note Initiated On: 10/16/2024 8:40 AM Mendel Sung MD ENDOSCOPY PROCEDURES Final Result * CTA Abdominal Aorta And Bilateral Iliofemoral Runoff (01/15/2024 10:28 AM FILTER CHANGER) Anatomical Region Laterality Modality Body Bilateral Computed Tomogra phy 01/15/2024 11:5 2 AM FILTER CHANGER Addenda Addendum by Jason Mahan MD on 03/03/2024 3:45 PM CDT Follow up Cardiothoracic Surgery consult and PET/CT done on 02/07/24. Margarita CHAVEZ, RN. Edited by: Margarita Mccabe Electronically signed by: Jason Mahan M.D. Impressions 01/15/2024 1:08 PM FILTER CHANGER 1. Spiculated soft tissue nodule in the [...] Jason Mahan M.D. Narrative 01/15/2024 1:08 PM FILTER CHANGER EXAMINATION: CT ANGIOGRAPHY OF THE ABDOMEN, PELVIS, [...] Recently Relevant to Health Maintenance [place] [address] [facility] AARP Advance Directives For more information, please contact: [phone] Documents on File Type Date Recorded Patient Legal Recovery Specialist Expl anation Power of Warehouse Representative 07/25/2024 6:24 AM * Full Code (Latest [...] 4:37 PM 09/04/2019 7:06 PM Care Teams Colon And Rectal Surgeon Relationship Specialty Start Date End Date Maykel Gramajo MD PCP - General 02/09/17 Hernan Hernandez MD Surgeon Vascular Surgery 09/04/19 Maykel Ramires MD [address] [place] [address] Referring Physician Cardiology 07/25/24 Maykel Villalpando MD [address] [place] [address] Consulting Physician Cardiothoracic Surgery 07/25/24
--- OUTSIDE RECORDS SUMMARY | 2025-01-14 00:39 | XMS_ITS | Clinical Summary ---
Author Organization [facility] Address [address] [place] [address] Care Team Providers Care Sign Language Interpreter Name Role Phone Maykel Garmajo MD Primary Care Provider [phone] Source Comments [facility],non-owned Affiliates and Associated Physician Practices is amultiple site organization consisting of ambulatory clinics and hospital sitesin [place], [place], [place] and [place]. This disclosure is being madepursuant to the Care Everywhere program and may not contain all information available regarding this patient. Last updated 18.[facility] Allergies Active Allergy Reactions Criticality Noted Date [...] (01/24/2021): Added automatically from request for surgery [id number] Chronic rhinitis 08/21/2019 History of epistaxis 08/21/2019 Aneurysm of popliteal artery 08/19/2019 Overview (01/24/2021): Added automatically from request for surgery [id number] Added automatically from request for surgery [id number] Last Assessment & Plan: - S/p status post self-expanding covered stent ([place] Viabahn 9 x 150 mm) placement to [...] the future Coronary artery disease invo lving lime coronary artery of lime heart without angina pectoris 03/28/2018 Overview (01/24/2021): [...] this topic Medical Devices Implanted Type Area Mechanical Project Manager Device Identifier Shelf Expiration Date Model / Serial / Lot Lens Iol 0 D +22.5 Ovid[employer] Mod L Acrsf Iq - [id number] Implanted:Qty: 1 on 02/23/2021 by Hernan Hansen MD at [facility] Right: [employer] 06/21/2023 [id number] / [id number] / Lens Iol 0 D +28.0 Ovidio Mod L Acrsf Iq - [id number] Implanted:Qty: 1 on 05/18/2021 by Hernan Hansen MD at [facility] Left: [employer] 11/22/2023 [id number] / [id number] / Care Teams Sign Language Interpreter Relationship Specialty Start Date End Date Maykel Gramajo MD [address] [place] [address] PCP - General 07/28/20
--- OUTSIDE RECORDS SUMMARY | 2025-01-14 00:39 | XMS_ITS | Clinical Summary ---
Author Organization [facility] Address [address] [place] [address] Care Team Providers Care Communications Instructor Name Role Phone Maykel Gramajo MD Primary Care Provider [phone] Hernan Hernandez MD Unavailable [phone] Maykel Ramires MD Unavailable [phone] Maykle Villalpando MD Unavailable [phone] Allergies Active Allergy Reactions Criticality Noted Date [...] removed, failed void check. Straight cathed x1 5/4: pereyra replaced, flomax started 03/16: pereyra removed. [...] to consider that. PAD (peripheral artery disease) ([facility]) 2019 Overview (05/25/2020): Added automatically from request for surgery [id number] Popliteal artery aneurysm, bilateral 12/09/2019 Overview (12/09/2019): Added automatically from request for surgery [id number] Assessment & Plan (06/11/2020 5:49 PM CDT): - S/p status post self-expanding covered stent (Hammond Viabahn 9 x 150 mm) placement to [...] History of epistaxis 08/21/2019 Popliteal artery aneurysm ([facility]) 08/19/2019 Overview (08/19/2019): Added automatically from request for surgery [id number] Coronary artery disease of n ative artery of [place] heart with stable angina pectoris ([facility]) 03/28/2018 Assessment & Plan (03/17/2024 [...] false-positive. Assessment & Plan (10/18/2020 5:19 PM SYSTEMS PROGRAMMER): No symptoms of myocardial ischemia, albeit with [...] made. Assessment & Plan (10/18/2020 5:19 PM SYSTEMS PROGRAMMER): He is on chronic lipid-lowering therapy. No [...] Department Care Team Description 01/12/2025 11:15 AM SYSTEMS PROGRAMMER Office Visit [facility] Gastroenterology [address] [place] [address] Medicine 12th [place] [address] [place] [address] Mendel Sung MD PAD (peripheral artery disease) (CMS/HCC) (HCC) (Primary Dx); Coronary artery disease of [place] artery of [place] heart with stable angina pectoris (CMS/HCC) (HCC); 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 (CMS/HCC) (HCC); Prostate cancer metastatic to bone (HCC) 01/06/2025 Documentation [facility] Gastroenterology [address] [facility] 12th [place] [address] [place] [address] Mansi Melo, NAHUM GI Advice re: PSMA Scan message(s) 10/16/2024 8:45 AM SYSTEMS PROGRAMMER - 10/16/2024 9:30 AM SYSTEMS PROGRAMMER Surgery [facility] Digestive Disease [address] [address] Mendel Sung MD COLON BIOPSY 10/16/2024 8:41 AM SYSTEMS PROGRAMMER Anesthesia Event [facility] Digestive Disease [address] [address] Tomasz Maharaj MD 10/16/2024 7:34 AM SYSTEMS PROGRAMMER - 10/16/2024 10:09 AM SYSTEMS PROGRAMMER Hospital Encounter [facility] Digestive Disease [address] [address] Mendel Sung MD 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 (CMS/HCC) (HCC) Discharge Disposition: Discharge to home or self care from Last 3 Months Immunizations Immunization Administration [...] 2020 VASCULAR SURGERY 12/31/2019 Self-expanding covered stent (Hammond Viabahn 9 x 100 mm) placement to exclude right SFA/popliteal aneurysm VASCULAR SURGERY 09/03/2019 . Right lower extremity angiogram 2. Self-expanding covered stent (Hammond Viabahn 9 x 150 mm) placement to exclude right SFA/popliteal aneurysm LOBECTOMY 03/12/2024 - 04/11/2024 right middle lobe Medical History Medical History Date Comments Allergic rhinitis Anxiety Peripheral vascular disease (HCC) hx of stents right leg Sinusitis DVT of lower extremity (deep venous thrombosis) ([facility]) 2004 S/pm CABG x5v Other complications of anest hesia, sequela 07/2005 Had postoperative respirator y issues after CABG x5 necessitating prolonged intubation Coronary artery disease Hyperlipidemia Diverticulitis 2007 Colovesical fist william requiring surgery Cataract Hypertension Clotting disorder (CMS/HCC) ([facility]) Neuromuscular disorder ([facility]) left foot Aortic stenosis History of blood transfusion 07/2005 Vision loss of left eye COPD (chronic obstructive pu lmonary disease) ([facility]) 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 ([facility]) 03/2024 lobectomy with thoractomy Delayed emergence from [...] on file Legal Sex Male 7:01 PM SYSTEMS PROGRAMMER Gender Identity Not on file Sexual Orientation Not on file Obstetrics History Last Filed Vital Signs Vital Sign Reading Time Taken Comments Blood Pressure 145/68 01/12/2025 10:40 AM SYSTEMS PROGRAMMER Pulse 66 01/12/2025 10:40 AM SYSTEMS PROGRAMMER Temperature 36.5 C (97.7 F) 01/12/2025 10:40 AM SYSTEMS PROGRAMMER Respiratory Rate 18 10/16/2024 9:51 AM SYSTEMS PROGRAMMER Oxygen Saturation 95% 10/16/2024 9:51 AM SYSTEMS PROGRAMMER Inhaled Oxygen Concentration - - Weight 79.4 kg (175 lb) 01/12/2025 10:40 AM SYSTEMS PROGRAMMER Height 175.3 cm (5' 9 ) 01/12/2025 10:40 AM SYSTEMS PROGRAMMER Body Mass Index 25.84 01/12/2025 10:40 AM SYSTEMS PROGRAMMER Plan of Treatment Health Maintenance Due Date Last Done Comments Depression Screening 1950 Hepatitis C Screening 1950 Hepatitis B Screening 1968 Pneumococcal vaccine 65+ (1 of 2 - PCV) 1969 Zoster Vaccine (1 of 2) 1969 Well Visit 65+ 2015 Covid-19 Vaccine (2023-2 [...] 10/16/2024, 09/22/2013 Medical Devices Implanted Type Area Education Department Registrar Device Identifier Shelf Expiration Date Model / Serial / Lot [employer] [id number] Viabahn 9mm 9fr 15cm 120cm Iliac Artery Stent Endoprosthesis - [id number] - [id number] Implanted:Qty: 1 on 09/03/2019 by Hernan Hernandez MD at [facility] Stent [employer] [id number] 07/22/2021 [id number] / [id number] / Description:Distal SFA Popli teal Artery [employer] [id number] Viabahn 9mm 9fr 10cm 120cm Delivery System Tip To Hub Deployment - [id number] - [id number] Implanted:Qty: 1 on 12/31/2019 by Hernan Hernandez MD at [facility] Stent Right: Leg [employer] [id number] 06/10/2022 [id number] / [id number] / [employer] Device Vascular Closure Femoral Artery Bioabsorbable Dual Method Vascade 6-7fr Collagen [id number] - S0 - [id number] Implanted:Qty: 1 on 07/25/2024 by Sigifredo Das MD at [facility] Vascular Closure Device [employer] 04/21/2026 [id number] / 0 / [id number] Cordis Mynxgrip 5fr Balloon Catheter Integrate Sealant Lock Latex Free [id number] - S0 - [id number] Implanted:Qty: 1 on 07/25/2024 by Sigifredo Das MD at [facility] Vascular Closure Device Cordis 05/05/2026 [id number] / [id number] / [id number] Procedures Procedure Name Priority Date/Time Associated Diagnosis Comments SURGICAL PATHOLOGY Routine 10/16/2024 8: 57 AM SYSTEMS PROGRAMMER 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 (CMS/HCC) (HCC) COLON BIOPSY 10/16/2024 8:41 AM SYSTEMS PROGRAMMER 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 (CMS/HCC) (HCC) COLONOSCOPY 10/16/2024 8:40 AM SYSTEMS PROGRAMMER CTA ABDOMINAL AORTA AND BILATERAL ILIOFEMORAL RUNOFF Schedule Routine, Read Routine (OP Routine) 01/15/2024 10:28 AM SYSTEMS PROGRAMMER Popliteal artery aneurysm (CMS/HCC) (HCC) from Last 3 Months or Most Recently Relevant to Health Maintenance Results * Surgical pathology (10/16/2024 8:57 AM SYSTEMS PROGRAMMER) Tissue (Polyp(s), colon/colorectal, esophageal, gastric) 10/16/2024 8:57 AM SYSTEMS PROGRAMMER Tissue (Colon, Biopsy) 10/16/2024 9:05 AM SYSTEMS PROGRAMMER Tissue (Colon, Biopsy) 10/16/2024 9:06 AM SYSTEMS PROGRAMMER Tissue (Colon, Biopsy) 10/16/2024 9:07 AM SYSTEMS PROGRAMMER Tissue (Polyp(s), colon/colorectal, esophageal, gastric) 10/16/2024 9:08 AM SYSTEMS PROGRAMMER Narrative PATHOLOGY [facility] - 10/20/2024 1:25 PM SYSTEMS PROGRAMMER EPIC results best viewed via link to PDF [facility] [place] [address] Note to Patients: This report may contain [...] Gender: M : 1950 (Age: 74) Address: [address] [place] [phone] Hospital #: [id number] Taken:10/16/2024 Received:10/16/2024 Reported: 10/20/2024 Patient Type: [facility] Service: Gastroenterology Location: Physician(s): Anil Bhat [...] 0. axxm/10/16/2024 15:59 PA(s): Zuly Timmons MS, PA ([facility])CM By this signature, I attest that the above diagnosis is based upon my personal examination of the slides(and/or other material). Addenda/Procedures The performance characteristics of some immunohistochemical stains, fluorescence in-situ hybridization tests and immunophenotyping by flow cytometry cited in this report (if any) were determined by the Surgical Pathology and Flow Cytometry Departments at [facility] as part of an ongoing microbiology quality control technician program and in compliance with federally [...] Surgical Pathology and Flow Cytometry Departments of [facility]. It has not been cleared or approved by the U. S. Food and Drug Administration. IMAGES AND SCANNED DOCUMENTS, IF INCLUDED, ONLY VIEWABLE IN PDF VERSION OF REPORT us Mendel Sung MD LAB PATHOLOGY ORDERABLES Fi nal Result PATHOLOGY [facility] 3rd Floor [place], [place] [phone] * Colonoscopy (10/16/2024 8:40 AM SYSTEMS PROGRAMMER) Anatomical Region Laterality Modality Other Narrative Procedure Note Mendel Sung MD - 10/16/2024 8:40 AM CST GI ENDOSCOPY [facility] Patient Name: Julio C Roberson Procedure Date: 10/16/2024 8:40 AM Date of : 1950 Admit Type: Outpatient Age: 74 Gender: Male Attending MD: Mendel Sung M.D. Room: [facility] ENDOSCOPY ROOM 8 Note Status: Finalized Procedure: [...] scope was passed under direct vision.The CF [id number] endoscope was introduced through the anus and advanced to the cecum, identified by appendiceal orifice and ileocecal valve. The colonoscopy was performed without difficulty. The patient tolerated the procedure well. The qualityof the bowel preparation was evaluated using the BBPS ([place] Bowel Preparation Scale) with scores of:Right Colon [...] During normal business hours - [facility] [place] [facility] [place] [place]: [phone]. After hours, evening, nights, weekends and holidays- Please call the hospital bottom crane operator at and ask for the GI fellow polysilicon preparation worker. Electronically signed by Mendel Sung MD Mendel Sung M.D. 10/16/2024 9:23:20 AM . Number of Addenda: 0 Note Initiated On: 10/16/2024 8:40 AM us Mendel Sung MD ENDOSCOPY PROCEDURES Final Result * CTA Abdominal Aorta And Bilateral Iliofemoral Runoff (01/15/2024 10:28 AM SYSTEMS PROGRAMMER) Anatomical Region Laterality Modality Body Bilateral Computed Tomogra phy 01/15/2024 11:5 2 AM SYSTEMS PROGRAMMER Addenda Addendum by Jason Mahan MD on 03/03/2024 3:45 PM CDT Follow up Cardiothoracic Surgery consult and PET/CT done on 02/07/24. Margarita CHAVEZ, RN. Edited by: Margarita Mccabe Electronically signed by: Jason Mahan M.D. Impressions 01/15/2024 1:08 PM SYSTEMS PROGRAMMER 1. Spiculated soft tissue nodule in the [...] Jason Mahan M.D. Narrative 01/15/2024 1:08 PM SYSTEMS PROGRAMMER EXAMINATION: CT ANGIOGRAPHY OF THE ABDOMEN, PELVIS, [...] Recently Relevant to Health Maintenance Insurance MEDICARE [facility] MEDICARE [facility] MEDICARE [facility] Advance Directives For more information, please contact: [phone] Documents on File Type Date Recorded Patient Yeast Fermentation Attendant Expl anation Power of Deep Tissue Massage Therapist 07/25/2024 6:24 AM * Full Code (Latest [...] 4:37 PM 09/04/2019 7:06 PM Care Teams Communications Instructor Relationship Specialty Start Date End Date Maykel Gramajo MD PCP - General 02/09/17 Hernan Hernandez MD Surgeon Vascular Surgery 09/04/19 Maykel Ramires MD [address] [place], [place] [id number] Referring Physician Cardiology 07/25/24 Maykel Villalpando MD [address] [place], [place] [phone] Consulting Physician Cardiothoracic Surgery 07/25/24
--- OUTSIDE RECORDS SUMMARY | 2025-01-14 00:39 | XMS_ITS | Clinical Summary ---
Author Organization [facility] Uriel [facility] Address [address] [place] [address] Care Team Providers Care Jack Machine Operator Name Role Phone Maykel Gramajo MD Primary Care Provider [phone] Allergies Active Allergy Reactions Criticality Noted Date [...] breakfast. 120 Tablet 4 12/26/2024 10:03 AM SYSTEM ENGINEER 12/23/2024 Active predniSONE (DELTASONE) 5 mg tablet Take 1 Tablet (5 mg) by mouth 2 times daily with meals. 60 Tablet 4 12/23/2024 Active Active Problems No known active problems Encounters Date Type Department Care Team Description 01/07/2025 Abstract [facility] Oncology and Hematology [facility] [address] [place] [address] Khai Walsh MD 01/06/2025 External Device Data STL ABSTRACTION Provider, Abstract 12/24/2024 Specialty Pharmacy [facility] [address] [place] [phone] Ashley Roberson, PHARMACIST Specialty Pharmacy Refill Coordination 12/24/2024 Specialty Pharmacy [facility] [address] [place] [phone] Ashley Roberson, PHARMACIST Specialty Pharmacy Clinical Assessment 12/23/2024 1:00 PM SYSTEM ENGINEER Office Visit [facility] Oncology [facility] [address] [place] [address] Khai Walsh MD Prostate cancer (CMS/HCC) (Primary Dx); Metastasis to bone (CMS/HCC) 12/23/2024 Specialty Pharmacy [facility] [address] [place] [phone] Ashley Roberson, PHARMACIST 12/11/2024 Orders Only [facility] Oncology and Hematology [facility] [address] [place] [address] Khai Walsh MD 12/09/2024 External Device Data STL ABSTRACTION Provider, Abstract 12/09/2024 External Device Data STL ABSTRACTION Provider, Abstract 12/09/2024 Chart Note [facility] Emergency Department [address] [phone] Sandeep Zafar MD 12/03/2024 External Device Data STL ABSTRACTION Provider, Abstract 12/03/2024 Orders Only [facility] Oncology and Hematology [facility] [address] [place] [address] Khai Walsh MD 12/02/2024 10:30 AM SYSTEM ENGINEER Office Visit [facility] Oncology and Hematology [facility] [address] [facility] [address] [place] [address] Khai Walsh MD Prostate cancer (CMS/HCC) (Primary [...] on file Legal Sex Male 1:21 PM SYSTEM ENGINEER Gender Identity Not on file Sexual Orientation Not on file Last Filed Vital Signs Vital Sign Reading Time Taken Comments Blood Pressure 140/81 12/23/2024 1:06 PM SYSTEM ENGINEER Pulse 66 12/23/2024 1:06 PM SYSTEM ENGINEER Temperature 36.3 C (97.4 F) 12/23/2024 1:06 PM SYSTEM ENGINEER Respiratory Rate 14 12/23/2024 1:06 PM SYSTEM ENGINEER Oxygen Saturation 97% 12/23/2024 1:06 PM SYSTEM ENGINEER Inhaled Oxygen Concentration - - Weight 79.8 kg (176 lb) 12/23/2024 1:06 PM SYSTEM ENGINEER Height 172.7 cm (5' 8 ) 12/02/2024 10:06 AM SYSTEM ENGINEER Body Mass Index 26.76 12/02/2024 10:06 AM SYSTEM ENGINEER Plan of Treatment Health Maintenance Due Date Last Done Comments Traditional Medicare (ACO) A nnual Wellness Visit 1969 FIT-DNA Q 3 years 1995 FIT/FOBT Q 1 year 1995 Flex Sig/CT Colonography Q 5 years 1995 PNEUMOCOCCAL VACCINE 50+ YEA RS (1 of 1 - PCV) [...] COMPREHENSIVE METABOLIC PANEL Routine 12/02/2024 3:30 PM SYSTEM ENGINEER TESTOSTERONE FREE Routine 12/02/2024 11: 49 AM SYSTEM ENGINEER from Last 3 Months Results * COMPREHENSIVE METABOLIC PANEL (12/02/2024 3:30 PM SYSTEM ENGINEER) Blood us Khai Walsh MD CHEMISTRY ORDERABLES Final Resu lt * TESTOSTERONE FREE (12/02/2024 11:49 AM SYSTEM ENGINEER) Blood us Khai Walsh MD CHEMISTRY ORDERABLES Final Resu lt from Last 3 Months Insurance MEDICARE PART A AND B [facility] [id number] RX [employer] RX Member Subscriber Plan / Payer (Ef fective 2024-Present) Name:Gume Roberson Relation to Subscriber:Self Name:Gume Roberson Payer ID:Not on file Group ID:[id number] Type:RX Medicare Part D Address: [address] Care Teams Jack Machine Operator Relationship Specialty Start Date End Date Maykel Gramajo MD [address] [place] [phone] PCP - General Family Practice 12/02/24
--- OUTSIDE RECORDS SUMMARY | 2025-01-14 00:39 | XMS_ITS | Encounter Summary ---
Author Organization [facility] Address [address] [place] [address] Care Team Providers Care Remote Coders Name Role Phone Maykel Gramajo MD Primary Care Provider [phone] Encounter Details Date Type Department Care Team (Late st Contact Info) Description 08/19/2018 Lab Requisition [facility] [address] [place] [phone] Unlisted, Ordering Provider, Social History Tobacco Use [...] - 6.3 % 08/22/2018 11:58 AM CDT [facility] Estimated Average Glucose 120 mg/dL 08/22/2018 11:58 AM CDT [facility] Comment: HbA1c Interpretation: Treatment target values recommended by ADA and other clinical organizations should be used to evaluate metabolic control in patients. Treatment Target Values: Normal : < 5.7% Pre-diabetes: 5.7-6.4% Diabetes: Equal to or greater than 6.5% Reference: [place] Diabetes Association Standards of Care in Diabetes -2014 In patients 70 years and older consider HbA1c target range of 7.0-7.5% Reference: Diabetes Mellitus in Older People: Position Statement on behalf of the International Association of Gerontology and Geriatrics (IAGG), the Diabetes Working Libertarian for Older People (EDWPOP), and the International Task Force of Experts in Diabetes. Pj Brandon, et al. J [place] Medical Directors Association. 2012 Test results diagnostic [...] - CHEM ISTRY ORDERABLES Performing Organization Address City/State/[facility] Co de Phone Number [address] [phone] * (ABNORMAL) LIPID PROFILE (08/22/2018 7:20 AM CDT) [facility] Signature Cholesterol Total 93 <200 mg/dL 08/22/2018 10:49 AM [facility] HDL 32(L) >40 mg/dL 08/22/2018 10:49 AM [facility] Comment: ATP III Classification of HDL Cholesterol: <40 mg/dL: Considered a major risk factor. >60 mg/dL: Considered a negative risk factor. LDL Calculated 36 <100 mg/dL 08/22/2018 10:49 AM [facility] Comment: ATP III Classification of LDL Cholesterol: <100 mg/dL: Optimal 100 - 129 mg/dL: Near Optimal/Above Optimal 130 - 159 mg/dL: Borderline High 160 - 189 mg/dL: High >190 mg/dL: Very High Triglycerides 125 <150 mg/dL 08/22/2018 10:49 AM CDT [facility] Comment: ATP III Classification of Triglycerides: <150 mg/dL: Normal 150 - 199 mg/dL: Borderline High 200 - 400 mg/dL: High >500 mg/dL: Very High Blood BLOOD SPECIMEN / Unknown Lab Venipuncture / Unknown 08/22/2018 7:20 AM CDT 08/22/2018 9:54 AM CDT Ordering Provider Unlisted LAB - CHEM ISTRY ORDERABLES [address] [phone] * GLUCOSE VITALITY (08/22/2018 7:20 AM CDT) Glucose 101 70 - 115 mg/dL 08/22/2018 10:23 AM CDT [facility] Blood BLOOD SPECIMEN / Unknown Lab Venipuncture / Unknown 08/22/2018 7:20 AM CDT 08/22/2018 9:54 AM CDT Ordering Provider Unlisted LAB - CHEM ISTRY ORDERABLES [address] [phone] documented in this encounter Visit Diagnoses Not on filedocumented in this encounter Care Teams Remote Coders Relationship Specialty Start Date End Date Maykel Gramajo MD [address] [place] [phone] PCP - General 07/28/20 documented as of this encounter
--- OUTSIDE RECORDS SUMMARY | 2025-01-14 00:39 | XMS_ITS ---
Author Organization [facility] Address [address] [place] [address] Care Team Providers Care Talent Consultant Name Role Phone Maykel Gramajo MD Primary Care Provider [phone] Hernan Hernandez MD Unavailable [phone] Maykel Ramires MD Unavailable [phone] Maykel Villalpando MD Unavailable [phone] Active Problems Patient Care Coordination No te Formatting of this note migh t be different from the original. Referring provider: Dr. Maykel Gramajo Mr. Gume Roberson is a 73-year-old with a lung [...] Assessment & Plan (03/16/2024 11:21 AM CDT): / pereyra removed, failed void check. Straight cathed [...] to consider that. PAD (peripheral artery disease) ([facility]) 2019 Overview (05/25/2020): Added automatically from request for surgery [id number] Popliteal artery aneurysm, bilateral 12/09/2019 Overview (12/09/2019): Added automatically from request for surgery [id number] Assessment & Plan (06/11/2020 5:49 PM CDT): - S/p status post self-expanding covered stent (Walton Viabahn 9 x 150 mm) placement to [...] History of epistaxis 08/21/2019 Popliteal artery aneurysm ([facility]) 08/19/2019 Overview (08/19/2019): Added automatically from request for surgery [id number] Coronary artery disease of n ative artery of [place] heart with stable angina pectoris ([facility]) 03/28/2018 Assessment & Plan (03/17/2024 9:27 [...] false-positive. Assessment & Plan (10/18/2020 5:19 PM TERRA COTTA ROOFER): No symptoms of myocardial ischemia, albeit with [...] made. Assessment & Plan (10/18/2020 5:19 PM TERRA COTTA ROOFER): He is on chronic lipid-lowering therapy. No [...] control. No changes made. Chronic ulcerative pancolitis ([facility]) 04/20/20 11 Current Treatment and Therapy Plans No current plan information found. Past Treatment and Therapy Plans No past plan information found. Lifetime Dose Tracking * Chemical Lifetime Dose Automatic Entry Manual Entr y Fluoro Time 51.998 minutes 51.998 minutes 0 minutes Air kerma at the reference point (Ka,r) 391.71 mGy 2 26.71 mGy 165 mGy DLP 6,315 mGycm 6,315 mGycm 0 mGycm
--- OUTSIDE RECORDS SUMMARY | 2025-01-14 00:39 | XMS_ITS | Referral Summary ---
Author Organization [facility] Address [address] [place] [address] Care Team Providers Care Dowel Machine Operator Name Role Phone Maykel Gramajo MD Primary Care Provider [phone] Source Comments [facility],non-owned Affiliates and Associated Physician Practices is amultiple site organization consisting of ambulatory clinics and hospital sitesin [place], [place], [place] and [place]. This disclosure is being madepursuant to the Care Everywhere program and may not contain all information available regarding this patient. 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 Overview (01/24/2021): Added automatically from request for surgery [id number] Added automatically from request for surgery [id number] Last Assessment & Plan: - S/p status post self-expanding covered stent (Lakota Viabahn 9 x 150 mm) placement to [...] the future Coronary artery disease invo lving mashpee coronary artery of mashpee heart without angina pectoris 03/28/2018 Overview (01/24/2021): [...] on file Medical Devices Implanted Type Area Alto Singer Device Identifier Shelf Expiration Date Model / Serial / Lot Lens Iol 0 D +22.5 Ovidio Mod L Acrsf Iq - [id number] Implanted:Qty: 1 on 02/23/2021 by Hernan Hansen MD at [facility] Right: [employer] 06/21/2023 [id number] / [id number] / Lens Iol 0 D +28.0 Ovidio Mod L Acrsf Iq - [id number] Implanted:Qty: 1 on 05/18/2021 by Hernan Hansen MD at [facility] Left: [employer] 11/22/2023 [id number] / [id number] / Care Teams Dowel Machine Operator Relationship Specialty Start Date End Date Maykel Gramajo MD [address] [place] [phone] [facility] - General 07/28/20
--- OUTSIDE RECORDS SUMMARY | 2025-01-14 00:39 | XMS_ITS | Continuity of Care Document ---
Author Organization [facility] Address [address] [place] [address] Phone Care Team Providers Care Perioperative Manager Name Role Phone Denis Cash Unavailable Unavailable Procedures Procedure Date Eye Exam & Treatment Refraction Advance Directives Directive Yes / No Effective Date File Name No Information Encounters Encounter Description Practice Location Reason(s) For Visit Diagnoses Date Provider Providers Copied on Encounter [facility], [address], [place], [place], [id number], [place] tel:[phone] [facility] No Information 0 Shailesh Barrios. [address] [facility] [address], [address], [place]. tel:[phone] Family History Family Member Type Diagnosis Age At Onset No Information Payers Payer name Insurance type Covered libertarian ID Authoriza titerell(s) [facility] Commercial CI [id number] Social History Type Description Quantity Date Captured [...]
--- OUTSIDE RECORDS SUMMARY | 2025-01-14 00:39 | XMS_ITS | Patient Health Summary ---
Author Organization [facility] Address [address] [place] [address] Care Team Providers Care Garage Worker Name Role Phone Maykel Gramajo MD Primary Care Provider [phone] Note from [facility],non-owned Affiliates and Associated Physician Practices is amultiple site organization consisting of ambulatory clinics and hospital sitesin [place], [place], [place] and [place]. This disclosure is being madepursuant to the Care Everywhere program and may not contain all information available regarding this patient. Last updated 18.[facility] Allergies * Lactose(GI Discomfort) -Low Criticality [...] artery 08/19/2019 Coronary artery disease invo lving resighini coronary artery of resighini heart without angina pectoris 03/28/2018 Hyperlipidemia 03/28/2018 [...] PM CDT Medical Devices Implanted Type Area Heel Dipper Device Identifier Shelf Expiration Date Model / Serial / Lot Lens Iol 0 D +22.5 O[employer] Mod L Acrsf Iq - [id number] Implanted:Qty: 1 on 02/23/2021 by Hernan Hansen MD at [facility] Right: [employer] 06/21/2023 [id number] / [id number] / Lens Iol 0 D +28.0 Ovidio Mod L Acrsf Iq - [id number] Implanted:Qty: 1 on 05/18/2021 by Hernan Hansen MD at [facility] Left: [employer] 11/22/2023 [id number] / [id number] / Procedures * EXTRACTION CATARACT WITH [...] PROFILE(Performed 10/03/2014) * GLUCOSE VITALITY(Performed 10/03/2014) * [facility](Performed 08/30/2013) * GLUCOSE VITALITY(Performed 08/30/2013) * [...] - 115 mg/dL 08/22/2018 10:23 AM CDT [facility] Blood BLOOD SPECIMEN / Unknown Lab Venipuncture / Unknown 08/22/2018 7:20 AM CDT 08/22/2018 9:54 AM CDT Ordering Provider Unlisted LAB - CHEM ISTRY ORDERABLES Performing Organization Address City/State/[facility] Co de Phone Number [address] [phone] * HEMOGLOBIN A1C (08/22/2018 7:20 AM CDT) Only the most recent of5 resultswithin the time period is included. Hemoglobin A1c 5.8 4.4 - 6.3 % 08/22/2018 11:58 AM CDT [facility] Estimated Average Glucose 120 mg/dL 08/22/2018 11:58 AM CDT [facility] Comment: HbA1c Interpretation: Treatment target values recommended by ADA and other clinical organizations should be used to evaluate metabolic control in patients. Treatment Target Values: Normal : < 5.7% Pre-diabetes: 5.7-6.4% Diabetes: Equal to or greater than 6.5% Reference: [place] Diabetes Association Standards of Care in Diabetes -2014 In patients 70 years and older consider HbA1c target range of 7.0-7.5% Reference: Diabetes Mellitus in Older People: Position Statement on behalf of the International Association of Gerontology and Geriatrics (IAGG), the Diabetes Working Republican for Older People (EDWPOP), and the International Task Force of Experts in Diabetes. Pj Brandon et al. J [place] Medical Directors Association. 2012 Test results diagnostic [...] - CHEM ISTRY ORDERABLES Performing Organization Address [facility]/State/[facility] Co de Phone Number [address] [phone] * (ABNORMAL) LIPID PROFILE (08/22/2018 7:20 AM CDT) Only the most recent of5 resultswithin the time period is included. Cholesterol Total 93 <200 mg/dL 08/22/2018 10:49 AM [facility] HDL 32(L) >40 mg/dL 08/22/2018 10:49 AM [facility] Comment: ATP III Classification of HDL Cholesterol: <40 mg/dL: Considered a major risk factor. >60 mg/dL: Considered a negative risk factor. LDL Calculated 36 <100 mg/dL 08/22/2018 10:49 AM [facility] Comment: ATP III Classification of LDL Cholesterol: <100 mg/dL: Optimal 100 - 129 mg/dL: Near Optimal/Above Optimal 130 - 159 mg/dL: Borderline High 160 - 189 mg/dL: High >190 mg/dL: Very High Triglycerides 125 <150 mg/dL 08/22/2018 10:49 AM [facility] Comment: ATP III Classification of Triglycerides: <150 mg/dL: Normal 150 - 199 mg/dL: Borderline High 200 - 400 mg/dL: High >500 mg/dL: Very High Blood BLOOD SPECIMEN / Unknown Lab Venipuncture / Unknown 08/22/2018 7:20 AM CDT 08/22/2018 9:54 AM CDT Ordering Provider Unlisted LAB - CHEM ISTRY ORDERABLES Performing Organization Address [facility]/ZIP Co de Phone Number [facility] [address] [phone] * VITALITY SCREEN (BEAKER) (08/16/2017 7:28 AM CDT) Only the most recent of4 resultswithin the time period is included. Blood specimen (specimen) BLOOD SPECIMEN / Unknown 08/16/2017 7:28 AM CDT Narrative [facility] - 08/16/2017 12:49 PM CDT The following orders were created for panel order [facility] Vitality Screening. Procedure Abnormality Status --------- ------ Hemoglobin A1c[[id number]] Final result Fasting Glucose[[id number]] Normal Final result Lipid Panel[[id number]] Abnormal Final result Please view results for these tests on the individual orders. Historical Provider LAB - CHEMISTRY O MARLONERALAWSON Performing Organization Address City/[facility]/ZIP Co de Phone Number [facility] [address] * (ABNORMAL) [facility] (08/30/2013 8:23 AM CDT) Cholesterol Total 133 <200 mg/dL [facility] HDL 35(L) > OR = 40 mg/dL [facility] Comment: ATP III classification of HDL cholesterol: <40 mg/dL Low; considered a major risk factor >60 mg/dL High; considered a negative risk factor Triglycerides 171(H) <150 mg/dL [facility] Comment: ATP III classification of Triglycerides: < 150 mg/dL Normal triglycerides 150-199 mg/dL Borderline-high triglycerides 200-400 mg/dL High triglycerides > 500 mg/dL Very high triglycerides LDL Calculated 64 0 - 100 mg/dL [facility] Comment: ATP III classification of LDL cholesterol: <100 mg/dL Optimal 100-129 Near optimal/above optimal 130-159 Borderline high 160-189 High >190 Very high Hemoglobin A1c 5.4 4.4 - 6.3 % [facility] Estimated Average Glucose 108 mg/dL [facility] 08/30/2013 8:23 AM CDT 08/30/2013 9:48 AM CDT Historical Provider LAB - CHEMISTRY O JOAQUÍN [address] [phone] * GLUCOSE (08/24/2012 8:32 AM CDT) Glucose 99 70 - 115 mg/dL [facility] 08/24/2012 8:32 AM CDT 08/27/2012 7:58 AM CDT Historical Provider LAB - CHEMISTRY O JOAQUÍN Performing Organization Address City/[facility]/ZIP Co de Phone Number [address] [phone] * CHOLESTEROL BLOOD (08/24/2012 8:32 AM CDT) Cholesterol Total 144 <200 mg/dL [facility] 08/24/2012 8:32 AM CDT 08/27/2012 7:58 AM CDT Historical Provider LAB - CHEMISTRY O JOAQUÍN [address] [phone] Care Teams Garage Worker Relationship Specialty Start Date End Date Maykel Gramajo MD [address] [place] [phone] PCP - General 07/28/20
[2025-01-14 11:05] VITALS: BP 124/54; PULSE 63; RESP 16; TEMP 36.4; O2SAT 98
[2025-01-14] MEDS: LACTATED RINGERS 1,000 ML 30 ML IV CONT (11:40)
[2025-01-14 12:07] LABS: INR 1.1; Prothrombin Time 14.3 Seconds (11.1-14.7)
[2025-01-14 12:08] LABS: Partial Thromboplastin Time 31.3 Seconds (22.3-36.8)
--- NOTE | 2025-01-14 12:22 | SUR.PREOP ---
1125-pt aware delays self ~2 hours. Brother in law notified.
--- NOTE | 2025-01-14 13:11 | WPDHPUPDATE1 ---
History and Physical Update Update Date/Time: 01/14/25 13:11 History and Physical has been reviewed, including an updated exam of the patient. There are NO changes in the patient's condition. Risks, benefits, and alternatives have been discussed and questions answered. Patient agrees to proceed with procedure.
[2025-01-14] MEDS: KETOROLAC 15 MG/ML VIAL (*BKC) IV PUSH (13:25)
--- NOTE | 2025-01-14 13:35 | P.PNAN_ITS ---
Anes - Initial Pre Proc Eval Procedure: Operation Date: 01/14/25 13:00 Proposed Procedures p Insertion Victorino Cath - Michi Arenas MD Date/Time: 01/14/25 13:35 Surgeon: Michi Arenas MD Pre Op Diagnosis: prostate cancer Patient Data Age: 74 Gender: M Height: 1.73 m Weight: 78.4 kg Last Vital Signs Temp 36.4 C 01/14/25 11:05 Pulse 63 01/14/25 11:05 Resp 16 01/14/25 11:05 BP 124/54 L 01/14/25 11:05 Pulse Ox 98 01/14/25 11:05 O2 Del Method Room Air 01/14/25 11:05 Allergies Allergy/AdvReac Type Severity Reaction Status Date / Time escitalopram Allergy Unknown Asthma Verified 01/14/25 11:35 sildenafil Allergy Unknown Hypotension Verified 01/14/25 11:35 Penicillins AdvReac Mild Diarrhea Verified 01/14/25 11:35 amoxicillin AdvReac Unknown Diarrhea Verified 01/14/25 11:35 ciprofloxacin AdvReac Unknown Diarrhea Verified 01/14/25 11:35 gemfibrozil AdvReac Unknown myalgias Verified 01/14/25 11:35 lactase AdvReac Unknown Nausea Verified 01/14/25 11:35 lactose AdvReac Unknown Nausea Verified 01/14/25 11:35 Home Medications ?Medication ?Instructions ?Recorded ?Confirmed ?Type aspirin 81 mg tablet,delayed 81 mg PO DAILY 10/17/19 01/14/25 History release (Josselin Low Dose Aspirin) cholecalciferol (vitamin D3) 125 5,000 unit PO DAILY 10/17/19 01/14/25 History mcg (5,000 unit) capsule mesalamine 1.2 gram tablet,delayed 2.4 gm PO DAILY 10/17/19 01/14/25 History release (Lialda) metoprolol succinate 25 mg 25 mg PO HS 10/17/19 01/14/25 History tablet,extended release 24 hr (Toprol XL) multivitamin 1 tablet PO DAILY 10/17/19 01/14/25 History albuterol sulfate 90 mcg/actuation 2 inhalation inhalation Q4H PRN 11/25/19 01/01/25 Rx aerosol inhaler (ProAir HFA) shortness of breath or wheezing #8.5 grams nitroglycerin 0.4 mg sublingual 0.4 mg sublingual DIRECTED 09/17/23 01/01/25 History tablet triamcinolone acetonide 0.1 % 1 applic topical BID #80 grams 02/13/24 01/14/25 Rx topical cream rivaroxaban 10 mg tablet (Xarelto) 10 mg PO HS 06/26/24 01/14/25 History pregabalin 100 mg capsule (Lyrica) 100 mg PO Q12H 90 days #180 caps 08/29/24 01/14/25 Rx tamsulosin 0.4 mg capsule 0.4 mg PO QHS #90 caps 11/24/24 01/14/25 Rx fenofibrate 160 mg tablet See Rx Instructions .Route 12/01/24 01/01/25 Rx .COMPLEX #90 tabs simvastatin 20 mg tablet (Zocor) 20 mg PO HS #90 tabs 12/01/24 01/14/25 Rx alprazolam 0.25 mg tablet (Xanax) 0.25 mg PO TID PRN anxiety #90 tabs 12/30/24 01/14/25 Rx abiraterone 250 mg tablet 1,000 mg PO DAILY 01/01/25 01/14/25 History prednisone 5 mg tablet 5 mg PO Q12H 01/01/25 01/14/25 History Laboratory Tests 01/14/25 11:45 PT 14.3 Seconds (11.1-14.7) INR 1.1 APTT 31.3 Seconds (22.3-36.8) Patient hx anesthesia problems: none Family hx anesthesia problems: none Results Review: All pre-operative results and documents have been reviewed as part of the pre- operative evaluation. [facility] Past Medical History Medical History Squamous cell carcinoma lung Anxiety Fistula Bundle branch block, right COPD (chronic obstructive pulmonary disease) Coronary artery disease Proctitis Ulcerative colitis Surgical History Surgical History History of lobectomy of lung S/P pneumonectomy H/O heart bypass surgery History of colon surgery Family History Family History Father Asthma Mother Acute myocardial infarction Son Carcinoma of colon Other Family history of cardiovascular disease Social History Social History Smoking packs per day: 2 Smoking cigarettes per day: 40.0 Years smoked: 35 Smoking pack-years: 70.00 Smoking status: Former smoker Tobacco type: cigarettes Second hand tobacco smoke exposure: No Smoking end date: 11/12/04 Alcohol intake: never Lack of Transportation: No Lack of Food: Never True Current Housing: I Have Housing Concerned About Future Housing: No Difficulty Paying Gas/Electric Bills: No Difficulty Paying for Meds: No Currently Unemployed: No Education: Bachelor's Degree Difficulty w/ Childcare or Family Care: No Living arrangements: with family Additional living arrangements comments: Spiritual care concerns: No Anes - Eval Final PreProcedure Day of Procedure 01/14/25 13:35 Patient weight: overweight Heart: regular rate and rhythm Lungs: decreased breath sounds Airway: Mallampati scale class II Neurological: alert and oriented Last oral intake: >/= 8 hours ASA classification: IV Emergent: no Anesthetic plan: proceed Anesthesia type and monitoring: general GIVS and standard monitoring Results Review: All pre-operative results and documents have been reviewed as part of the pre- operative evaluation. Informed Consent: The patient's anesthetic plan and its attendant risks and benefits were discussed with the patient/family/POA. Questions were solicited and answers provided to the satisfaction of the patient/family/POA.
[2025-01-14] MEDS: ceFAZolin 2 GM/D5W 50 ML 2 GM/50 ML BAG IVPB (13:59)
[2025-01-14] MEDS: BUPIVACAINE/EPINEPHRINE 0.5% 50 ML VIAL 30 ML INFILTRATE (14:20)
[2025-01-14] MEDS: HEPARIN SODIUM 5,000 UNITS/ML VIAL 5000 UNITS IRRIGATION (14:38)
[2025-01-14 15:01] VITALS: BP 100/52; PULSE 70; RESP 12; O2SAT 97
--- NOTE | 2025-01-14 15:04 | W.PM.PROC2 ---
Procedure Note - Detailed Date of Procedure 01/14/25 Pre-op Diagnosis prostate cancer, inadequate venous access Post-op Diagnosis Same Procedure Performed Placement right internal jugular vein Port-A-Cath using ultrasound and under fluoroscopy per Dr. Arenas Surgeon Michi Arenas MD Space Technologist JORGE Loza Anesthesia General (G IV S) and Local Indications Patient is to undergo chemo radiation therapy for prostate cancer. I was asked to place a Port-A-Cath for better chemotherapy access. Findings Tip of Port-A-Cath distal SVC, right atrial junction Description of Procedure Patient was taken to surgery and IV sedation was administered. The head was turned slightly the left and the right neck and right upper chest were prepped and draped. Using ultrasound, I was able to find the right internal jugular vein. Local anesthetic was infiltrated. Vein was cannulated and a guidewire was able to be passed into the internal jugular vein and down into the superior vena cava. The position of the guidewire was demonstrated by C-arm fluoroscopy. I then measured the length of Port-A-Cath that would be needed including the tunneled length. This was done under fluoroscopy. The Port-A-Cath was cut to the appropriate length. Local was infiltrated just below the right clavicle and into the subcutaneous. Incision was made dissection was carried through the subcutaneous and through the pectoralis major fascia. A subfascial pocket was then created just below the incision. I then marked a counter incision on the right neck. Local was infiltrated into this counter incision and around the exit site of the guidewire. Counter incision was incised and the skin around the guidewire was also incised. The Port-A-Cath tubing was then tunneled retrograde from the pocket through the counter incision then an out the exit site of the guidewire. The tunneler was removed. We used C-arm fluoroscopy and passed the dilator and sheath over the guidewire and into the SVC. The guidewire and the introducer were removed. Port-A-Cath tubing was passed through the sheath and into the distal SVC. Before the sheath was removed, we checked the position of the Port-A-Cath and it looked to be appropriate. We then removed the sheath. I recheck the Port-A-Cath pathway and position. There was a gentle curve to the Port-A-Cath tubing and the tip appeared to be in the distal SVC, right atrial junction. I checked the Port-A-Cath. It aspirated blood and flushed easily with heparin. I sutured the Port-A-Cath to the pectoralis major muscle with 3-0 silk suture. I then again checked the Port-A-Cath. It aspirated blood easily and flushed well with heparin. The Port-A-Cath wound was closed with running 2-0 Vicryl suture. The skin was closed with running 4-0 Monocryl skin suture. The 2 counter incisions were closed with subcuticular 4-0 Vicryl skin suture. All wounds were dressed with Exofin surgical adhesive. Patient was then awakened and taken to outpatient surgery in good condition. Sponge and needle counts were correct x2. Implants Port-A-Cath Estimated Blood Loss -5 Drains No Packing No Pathology None sent Complications None Condition Stable Disposition Same day [facility] Billing Surgery - Charge Forward: Surgery Billing (Placement right internal jugular vein Port-A-Cath using ultrasound and under fluoroscopy)
[2025-01-14 15:30] VITALS: BP 122/56; PULSE 66; RESP 20
[2025-01-14 16:00] VITALS: BP 120/80; PULSE 69; RESP 20
[2025-01-14 16:05] VITALS: BP 128/81; PULSE 69; RESP 20
== END 2025-01-14 16:19 | disposition home or self-care (01) ==
PROVIDERS: PCP Family Medicine; Visit Provider Surgery
PROC: (CPT 36561; principal; 2025-01-14 13:00)
DX: C61 Malignant neoplasm of prostate (principal); Z79.01 Long term (current) use of anticoagulants; Z87.891 Personal history of nicotine dependence
CPT/HCPCS: 36561; 36415; 77001; 85610; 85730; C1788; J0690; J1644; J1885; J2704; J7120

== ENCOUNTER 2025-02-19 10:19 | Outpatient (CLI) | payer MEDICARE, SELFPAY ==
--- NOTE | ~2025-02-19 | CT_ITS ---
Clinical Indication: Shortness of breath CT Scan of the Chest with Contrast: Technique: Contiguous sections were acquired throughout the chest after intravenous administration of 100 cc of Omnipaque 350. Dose reduction technique was used on this scan by utilizing automated expos ure control and iterative reconstruction technique. The dose-length product (DLP) was 306.70 mGy-cm. Findings: There is no evidence of any significant mediastinal, hilar or axillary lymphadenopathy. There is no f illing defect in the pulmonary arterial tree to suggest pulmonary embolus. There is no evidence of ao rtic dissection or aneurysm. No or pericardial effusion. Minimal right pleural effusion present. No left pleural effusion. There is mild patchy groundglass attenuation the lungs osseous of mild pulmonary edema and/or hypoven tilatory change. There is possible underlying mild chronic interstitial change. Images through the upper abdomen reveal calcified gallstones. There is extensive sclerotic lesion of T10 with probable pathologic compression fracture present. Smaller osseous lesions, predominantly scl erotic are present at T5 and T6. Impression: No evidence of pulmonary embolus, aortic dissection, or aortic aneurysm. Minimal right pleural effusion with probable mild mixed alveolar and interstitial pulmonary edema. Co rrelate clinically for pneumonia. Underlying mild chronic interstitial disease is a consideration as well. Osseous metastatic lesions are compatible with history of prostate cancer, with pathologic compressio n deformity of T10. Reviewed, dictated and finalized at [facility]. Impression: No evidence of pulmonary embolus, aortic dissection, or aortic aneurysm. Minimal right pleural effusion with probable mild mixed alveolar and interstiti al pulmonary edema. Correlate clinically for pneumonia. Underlying mild chronic interstitial disease is a consideration as well. Osseous metastatic lesions are compatible with history of prostate cancer, with pathologic compression deformity of T10.
--- OUTSIDE RECORDS SUMMARY | 2025-02-19 11:07 | XMS_ITS | Clinical Summary ---
Author Organization [facility] (Former[facility]) Uriel Mar Address [address] [place] [address] Care Team Providers Care Microbiology Lab Technician Name Role Phone Maykel Gramajo MD Primary Care Provider [phone] Allergies Active Allergy Reactions Criticality Noted Date Comments Lactose Nausea and Vomiting, Other (See Comments) Low 03/25/2015 Upset stomach Medications aspirin (ECOTRIN EC) 81 mg Tablet, Delayed Release (E.C.) Take 81 mg by mouth daily. Active mesalamine (LIALDA) 1.2 gram Tablet, Delayed Release (E.C.) Take 3.6 Grams by mouth daily. 5 Active metoprolol succinate (TOPROL XL) 25 mg Extended Release 24 hour tablet Take 25 mg by mouth daily. 4 Active Xarelto 10 mg Tablet Take 10 mg by mouth daily. 4 Active ALPRAZolam (XANAX) 0.25 mg tablet Take [...] mouth daily before breakfast. 120 Tablet 4 01/28/2025 8:44 AM CDT 5 Active predniSONE (DELTASONE) 5 mg tablet Take 1 Tablet (5 mg) by mouth 2 times daily with meals. 60 Tablet 4 5 Active ondansetron (ZOFRAN ODT) 8 mg Tablet, Rapid Dissolve Dissolve 1 tablet on top of tongue then swallow with saliva every 8 hours as needed for nausea or vomiting 30 Tablet 1 5 Active lidocaine-prilo saúl (EMLA) 2.5-2.5 % Cream Apply a quarter size amount to port site 30 minutes before access. 30 Gram 1 5 Active dexAMETHasone (DECADRON) 4 mg tablet Take 2 tablets by mouth BID day before, day of, and day after treatment with Docetaxel. 12 Tablet 5 5 Active Active Problems No known active problems Encounters Date Type Department Care Team Description 02/19/2025 9:15 AM CDT Office Visit [facility] ([facility]) Oncology and [facility] [address] [place] [address] Khai Walsh MD Prostate cancer ([facility]) (Primary Dx); Shortness of breath 02/19/2025 Specialty Pharmacy [facility] [address] [place] [address] Latoya Becerra, PHARMACIST Specialty Pharmacy Refill Coordination 02/17/2025 External Device Data STL ABSTRACTION Provider, Abstract 02/09/2025 Orders Only [facility] Oncology [facility] [address] [place] [address] Khai Walsh MD Prostate cancer ([facility]/HCC) 01/29/2025 Abstract [facility] Oncology and Hematology [facility] [address] [place] [address] Khai Walsh MD 01/29/2025 Orders Only [facility] Oncology and Hematology [facility] [address] [place] [address] Khai Walsh MD Prostate cancer ([facility]) (Primary Dx) 01/28/2025 External Device Data STL ABSTRACTION Provider, Abstract 01/27/2025 Orders Only [facility] Oncology and Hematology - [place] [address] [place] [address] Khai Walsh MD Prostate cancer (CMS/HCC) (Primary Dx) 01/20/2025 Refill [facility] Oncology and Hematology - [place] [address] [place] [address] Khai Walsh MD 01/19/2025 External Device Data STL ABSTRACTION Provider, Abstract 01/15/2025 Specialty Pharmacy [facility] [address] [place] [address] [place] [phone] Latoya Becerra, PHARMACIST Specialty Pharmacy Refill Coordination 01/07/2025 Abstract [facility] Oncology and Hematology [facility] [address] [place] [address] Khai Walsh MD 01/06/2025 External Device Data STL ABSTRACTION Provider, Abstract 12/24/2024 Specialty Pharmacy [facility] [address] [place] [address] [place] [address] Ashley Roberson, PHARMACIST Specialty Pharmacy Refill Coordination 12/24/2024 Specialty Pharmacy [facility] [address] [place] [phone] Ashley Roberson, PHARMACIST Specialty Pharmacy Clinical Assessment 12/23/2024 1:00 PM CAR GREASER Office Visit [facility] Oncology and Hematology [facility] [address] [place] [address] Khai Walsh MD Prostate cancer (CMS/HCC) (Primary Dx); Metastasis to bone (CMS/HCC) 12/23/2024 Specialty Pharmacy [facility] [address] [place] [address] [place] [address] Ashley Roberson, PHARMACIST 12/11/2024 Orders Only [facility] Oncology and Hematology - [place] [address] [place] [address] Khai Walsh MD 12/09/2024 External Device Data STL ABSTRACTION Provider, Abstract 12/09/2024 External Device Data STL ABSTRACTION Provider, Abstract 12/09/2024 Chart Note [facility] Emergency Department [address] [address] Sandeep Zafar MD 12/03/2024 External Device Data STL ABSTRACTION Provider, Abstract 12/03/2024 Orders Only [facility] Oncology and Hematology [place] [address] [place] [address] Khai Walsh MD 12/02/2024 10:30 AM CAR GREASER Office Visit [facility] Oncology and Hematology [facility] [address] [place] [address] Khai Walsh MD Prostate cancer (CMS/HCC) (Primary [...] on file Legal Sex Male 1:21 PM CAR GREASER Gender Identity Not on file Sexual Orientation Not on file Last Filed Vital Signs Vital Sign Reading Time Taken Comments Blood Pressure 106/66 02/19/2025 9:13 AM CDT Pulse 98 02/19/2025 9:13 AM CDT Temperature 36.1 C (96.9 F) 02/19/2025 9:13 AM CDT Respiratory Rate 14 02/19/2025 9:13 AM CDT Oxygen Saturation 94% 02/19/2025 9:13 AM CDT Inhaled Oxygen Concentration - - Weight 77.1 kg (170 lb) 02/19/2025 9:13 AM CDT Height 172.7 cm (5' 8 ) 12/02/2024 10:06 AM CAR GREASER Body Mass Index 25.85 12/02/2024 10:06 AM CAR GREASER Plan of Treatment Upcoming Encounters Date Type Department Care Team (Late st Contact Info) Description 03/12/2025 11:45 AM CDT Office Visit [facility] Oncology and Hematology - [place] [address] [facility] [address] [place] [address] Khai Walsh MD [address] [facility] [address] [place] [address] Health Maintenance Due Date Last Done Comments PNEUMOCOCCAL VACCINE 50+ YEA RS (1 of 2 - PCV) 1969 Traditional Medicare (ACO) A nnual Wellness Visit 1969 FIT-DNA Q 3 years 1995 FIT/FOBT Q 1 year 1995 Flex Sig/CT Colonography Q 5 years 1995 ZOSTER VACCINE (1 of 2) 2000 Abdominal [...] COMPREHENSIVE METABOLIC PANEL Routine 12/02/2024 3:30 PM CAR GREASER TESTOSTERONE FREE Routine 12/02/2024 11: 49 AM CAR GREASER from Last 3 Months Results * COMPREHENSIVE METABOLIC PANEL (12/02/2024 3:30 PM CAR GREASER) Blood us Khai Walsh MD CHEMISTRY ORDERABLES Final Resu lt * TESTOSTERONE FREE (12/02/2024 11:49 AM CAR GREASER) Blood us Khai Walsh MD CHEMISTRY ORDERABLES Final Resu lt from Last 3 Months Insurance MEDICARE PART A AND B [facility] [id number] RX [employer] RX Member Subscriber Plan / Payer (Ef fective 2024-Present) Name:Gume Roberson Relation to Subscriber:Self Name:Gume Roberson Payer ID:Not on file Group ID:[id number] Type:RX Medicare Part D Address: [address] Care Teams Microbiology Lab Technician Relationship Specialty Start Date End Date Maykel Gramajo MD [address] [place] [address] [address] [place] [address] PCP - General Family Practice 12/02/24
--- OUTSIDE RECORDS SUMMARY | 2025-02-19 11:07 | XMS_ITS | Encounter Summary ---
Author Organization [facility] Address [address] [place] [address] Care Team Providers Care Cradle Slide Maker Name Role Phone Maykel Gramajo MD Primary Care Provider [phone]- [phone] Encounter Details Date Type Department Care Team (Late Contact Info) Description 02/19/2025 Specialty Pharmacy [facility] Specialty Pharmacy [facility] [place] [address] Latoya Becerra, PHARMACIST Specialty Pharmacy Refill Coordination Social History Tobacco Use Types Packs/Day Years Used Date Smoking Tobacco: Former Cigarettes 2 35 Q uit: 12/02/2004 Smokeless Tobacco: Never Alcohol Use Standard Drinks/Week Comments Never 0 (1 standard drink = 0.6 oz pur e alcohol) Sex and Gender Information Value Date Recorded Sex Assigned at Not on file Legal Sex Male 1:21 PM FIRE CREW WORKER Gender Identity Not on file Sexual Orientation Not on file documented as of this encounter Plan of Treatment Upcoming Encounters Date Type Department Care Team ([facility] Contact Info) Description 03/12/2025 11:45 AM CDT Office Visit [facility] Oncology and Hematology - [place] [address] [facility] [address] [place] [address] Khai Walsh MD [address] [facility] [address] [place] [address] documented as of this encounter Visit Diagnoses Not on filedocumented in this encounter Care Teams Cradle Slide Maker Relationship Specialty Start Date End Date Maykel Gramajo MD [address] [place] [address] [address] [place] [address] PCP - General Family Practice 12/02/24 documented as of this encounter
--- OUTSIDE RECORDS SUMMARY | 2025-02-19 11:07 | XMS_ITS | Clinical Summary ---
Author Organization [facility] [employer] Address [address] [facility] [place] [address] Care Team Providers Care Highway Maintainer Name Role Phone Maykel Gramajo MD Primary Care Provider [phone] Source Comments [facility] [employer],non-owned Affiliates and Associated Physician Practices is amultiple site organization consisting of ambulatory clinics and hospital sitesin [place], [place], [place] and [place]. This disclosure is being madepursuant to the Care Everywhere program and may not contain all information available regarding this patient. Last updated 18.[facility] [employer] Allergies Active Allergy Reactions Criticality Noted Date [...] (01/24/2021): Added automatically from request for surgery [id number] Chronic rhinitis 08/21/2019 History of epistaxis 08/21/2019 Aneurysm of popliteal artery 08/19/2019 Overview (01/24/2021): Added automatically from request for surgery [id number] Added automatically from request for surgery [id number] Last Assessment & Plan: - S/p status post self-expanding covered stent ([place] Viabahn 9 x 150 mm) placement to [...] the future Coronary artery disease invo lving elem coronary artery of elem heart without angina pectoris 03/28/2018 Overview (01/24/2021): [...] VACCINE (1 - 2023-2 5 season) 2024 DEPRESSION SCREENING 11/12/2024 Respiratory Syncytial Virus (RSV) Vaccine Pt: or over 60 yrs (1 - 1-dose 75+ series) 2025 INFLUENZA VACCINE (Season Ended) 2025 08/19/2019, 08/16/2018 HEPATITIS B VACCINE Aged Out No longe r eligible based on patient's age to complete this topic HIB VACCINE Aged Out No longer eligi ble based on patient's age to complete this topic HPV VACCINE Aged Out No longer eligi ble based on patient's age to complete this topic MENINGOCOCCAL (Group B) VACCINE SHARED DECISION-MAKING Aged Out No longer eligible based on patient's age to complete this topic MENINGOCOCCAL GROUPS A/C/Y/W VACCINE Aged Out No longer eligible b ased on patient's age to complete this topic Medical Devices Implanted Type Area Air Press Operator Device Identifier Shelf Expiration Date Model / Serial / Lot Lens Iol 0 D +22.5 Ovidio Mod L Acrsf Iq - [id number] Implanted:Qty: 1 on 02/23/2021 by Hernan Hansen MD at [facility] Right: [employer] 06/21/2023 [id number] / [id number] / Lens Iol 0 D +28.0 Ovidio Mod L Acrsf Iq - [id number] Implanted:Qty: 1 on 05/18/2021 by Hernan Hansen MD at [facility] Left: [employer] 11/22/2023 [id number] / [id number] / Care Teams Highway Maintainer Relationship Specialty Start Date End Date Maykel Gramajo MD [facility] [place] [address] PCP - General 07/28/20
--- OUTSIDE RECORDS SUMMARY | 2025-02-19 11:07 | XMS_ITS | Referral Summary ---
Author Organization [facility] Address [address] [place] [address] Care Team Providers Care Operator Command Support Systems Name Role Phone Maykel Gramajo MD Primary Care Provider [phone] Hernan Hernandez MD Unavailable [phone] Maykel Ramires MD Unavailable [phone] Maykel Villalpando MD Unavailable Encounters Date Type Department Care Team Description 01/12/2025 11:15 AM CATTLE SHIPPER Office Visit [facility] Gastroenterology [address] [facility] 12th [place] [address] [place] [address] Mendel Sung MD PAD (peripheral artery disease) (CMS/HCC) (HCC) (Primary Dx); Coronary artery disease of [place] artery of [place] heart with stable angina pectoris (CMS/HCC) (HCC); 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 (HCC); Prostate cancer metastatic to bone (HCC) 01/06/2025 Documentation [facility] Gastroenterology [address] [facility] 12th [place] [address] [place] [address] Mansi Melo, RN GI Advice re: PSMA Scan message(s) from Last 3 Months Allergies Active Allergy Reactions Criticality Noted Date Comments Lactose Stomach upset Low 07/09/2019 Medications multivitamin tablet tablet take 1 Tablet by oral route every day with food 0 0 01/29/201 4 Active loratadine (CLARITIN) 10 mg tablet [...] EC tabletIndications: 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 (HCC) TAKE 3 TABLETS BY MOUTH DAILY [...] cathed x1 03/15: pereyra replaced, flomax started 5/5: pereyra removed. Void trial pending Pulmonary nodule [...] to consider that. 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 Overview (12/09/2019): Added automatically from request for surgery [id number] Assessment & Plan (06/11/2020 5:49 PM CDT): - S/p status post self-expanding covered stent ([place] Viabahn 9 x 150 mm) placement to [...] as tolerated - ADAT - Admit overnight / no ride - Plan for left leg bypass at some point in the future Chronic rhinitis 08/21/2019 History of epistaxis 08/21/2019 Popliteal artery aneurysm 08/19/2019 Overview (08/19/2019): Added automatically from request for surgery [id number] Coronary artery disease of n ative artery of [place] heart with stable angina pectoris ([facility]) 03/28/2018 Assessment & Plan (03/17/2024 9:27 AM CDT): S/p CABG 2004 - restart low dose BB titrate up as BP/HR tolerates - continue statin meds Assessment & Plan (03/23/2021 10:02 PM CDT): He is not experiencing chest discomfort, but does have exertional dyspnea. Continue anti-platelet and beta-shirlye therapy. Will obtain pharmacologic stress test, realizing that in the past this was a false-positive. Assessment & Plan (10/18/2020 5:19 PM CATTLE SHIPPER): No symptoms of myocardial ischemia, albeit with [...] made. Assessment & Plan (10/18/2020 5:19 PM CATTLE SHIPPER): He is on chronic lipid-lowering therapy. No [...] control. No changes made. Chronic ulcerative pancolitis 04/20/2011 Immunizations Immunization Administration Dates Next Due Influenza, [...] on file Legal Sex Male 7:01 PM CATTLE SHIPPER Gender Identity Not on file Sexual Orientation Not on file Last Filed Vital Signs Vital Sign Reading Time Taken Comments Blood Pressure 145/68 01/12/2025 10:40 AM CATTLE SHIPPER Pulse 66 01/12/2025 10:40 AM CATTLE SHIPPER Temperature 36.5 C (97.7 F) 01/12/2025 10:40 AM CATTLE SHIPPER Respiratory Rate 18 10/16/2024 9:51 AM CATTLE SHIPPER Oxygen Saturation 95% 10/16/2024 9:51 AM CATTLE SHIPPER Inhaled Oxygen Concentration - - Weight 79.4 kg (175 lb) 01/12/2025 10:40 AM CATTLE SHIPPER Height 175.3 cm (5' 9 ) 01/12/2025 10:40 AM CATTLE SHIPPER Body Mass Index 25.84 01/12/2025 10:40 AM CATTLE SHIPPER Plan of Treatment Not on file Medical Devices Implanted Type Area Aquatic Life Laborer Device Identifier Shelf Expiration Date Model / Serial / Lot Wl [employer] [id number] Viabahn 9mm 9fr 15cm 120cm Iliac Artery Stent Endoprosthesis - [id number] - [id number] Implanted:Qty: 1 on 09/03/2019 by Hernan Hernandez MD at [facility] Stent Wl [employer] [id number] 07/22/2021 [id number] / [id number] / Description:Distal SFA Popli teal Artery Wl [employer] [id number] Viabahn 9mm 9fr 10cm 120cm Delivery System Tip To Hub Deployment - [id number] - [id number] Implanted:Qty: 1 on 12/31/2019 by Hernan Hernandez MD at [facility] Stent Right: Leg Wl [employer] [id number] 06/10/2022 [id number] / [id number] / [employer] Device Vascular Closure Femoral Artery Bioabsorbable Dual Method Vascade 6-7fr Collagen [id number] - S0 - [id number] Implanted:Qty: 1 on 07/25/2024 by Sigifredo Das MD at [facility] Vascular Closure Device [employer] 04/21/2026 [id number] / 0 / [id number] Cordis Mynxgrip 5fr Balloon Catheter Integrate Sealant Lock Latex Free [id number] - S0 - [id number] Implanted:Qty: 1 on 07/25/2024 by Sigifredo Das MD at [facility] Vascular Closure Device [employer] 05/05/2026 [id number] / [id number] / [id number] Procedures Procedure Name Priority Date/Time Associated Diagnosis Comments COLONOSCOPY 10/16/2024 8:40 AM CATTLE SHIPPER CTA ABDOMINAL AORTA AND BILATERAL ILIOFEMORAL RUNOFF Schedule Routine, Read Routine (OP Routine) 01/15/2024 10:28 AM CATTLE SHIPPER Popliteal artery aneurysm from Last 3 Months or Most Recently Relevant to Health Maintenance Results * Colonoscopy (10/16/2024 8:40 AM CATTLE SHIPPER) Anatomical Region Laterality Modality Other Narrative Procedure Note Mendel Sung MD - 10/16/2024 8:40 AM CST [facility] Patient Name: Gume Roberson Procedure Date: 10/16/2024 8:40 AM Date of : 1950 Admit Type: Outpatient Age: 74 Gender: Male Attending MD: Mendel Sung M.D. Room: [facility] ENDOSCOPY ROOM 8 Note Status: Finalized [...] The scope was passed under direct vision.The [id number] endoscope was introduced through the anus and advanced to the cecum, identified by appendiceal orifice and ileocecal valve. The colonoscopy was performed without difficulty. The patient tolerated the procedure well. The qualityof the bowel preparation was evaluated using the BBPS ([place] Bowel Preparation Scale) with scores of:Right Colon [...] business hours - Please call theNurse Coordinator: [phone]. After hours, evening, nights, weekends and holidays- Please call the hospital barrel lathe operator inside at and ask for the GI fellow bank reconciliator. Electronically signed by Mendel Sung MD Mendel Sung M.D. 10/16/2024 9:23:20 AM . Number of Addenda: 0 Note Initiated On: 10/16/2024 8:40 AM us Mendel Sung MD ENDOSCOPY PROCEDURES Final Result * CTA Abdominal Aorta And Bilateral Iliofemoral Runoff (01/15/2024 10:28 AM CATTLE SHIPPER) Anatomical Region Laterality Modality Body Bilateral Computed Tomogra phy 01/15/2024 11:5 2 AM CATTLE SHIPPER Addenda Addendum by Jason Mahan MD on 03/03/2024 3:45 PM CDT Follow up Cardiothoracic Surgery consult and PET/CT done on 02/07/24. Margarita CHAVEZ, RN. Edited by: Margarita Mccabe Electronically signed by: Jason Mahan M.D. Impressions 01/15/2024 1:08 PM CATTLE SHIPPER 1. Spiculated soft tissue nodule in the [...] Jason Mahan M.D. Narrative 01/15/2024 1:08 PM CATTLE SHIPPER EXAMINATION: CT ANGIOGRAPHY OF THE ABDOMEN, PELVIS, [...] Recently Relevant to Health Maintenance Insurance MEDICARE [facility] Address: [facility] [address] [place] [address] [facility] MEDICARE [facility] Advance Directives For more information, please contact: [phone] Documents on File Type Date Recorded Patient Senior Search Marketing Analyst Expl anation Power of Nuclear Physician 07/25/2024 6:24 AM * Full Code (Latest [...] 4:37 PM 09/04/2019 7:06 PM Care Teams Operator Command Support Systems Relationship Specialty Start Date End Date Maykel Gramajo MD PCP - General 02/09/17 Hernan Hernandez MD Surgeon Vascular Surgery 09/04/19 Maykel Ramires MD [address] [place] [address] Referring Physician Cardiology 07/25/24 Maykel Villalpando MD [address] [place] [address] Consulting Physician Cardiothoracic Surgery 07/25/24
--- OUTSIDE RECORDS SUMMARY | 2025-02-19 11:07 | XMS_ITS | Continuity of Care Document ---
Author Organization [facility] Address [address] [place] [address] Phone Care Team Providers Care Cut Roll Machine Operator Name Role Phone Denis Cash Unavailable Unavailable Procedures Procedure Date Eye Exam & Treatment Refraction Advance Directives Directive Yes / No Effective Date File Name No Information Encounters Encounter Description Practice Location Reason(s) For Visit Diagnoses Date Provider Providers Copied on Encounter formerly [facility], [address], [place], [place], [id number], [place] tel:[phone] No Information 0 Shailesh Barrios. [address] [facility] [address], [address], [place]. tel:[phone] Family History Family Member Type Diagnosis Age At Onset No Information Payers Payer name Insurance type Covered constitution party ID Authoriza titerell(s) [facility] Commercial CI [id number] Social History Type Description Quantity Date Captured [...]
--- OUTSIDE RECORDS SUMMARY | 2025-02-19 11:07 | XMS_ITS | Encounter Summary ---
Author Organization [facility] Address [address] [address] Care Team Providers Care Multimedia Programmer Name Role Phone Maykel Gramajo MD Primary Care Provider [phone] Encounter Details Date Type Department Care Team (Late st Contact Info) Description 08/19/2018 Lab Requisition [facility] [address] [place] [id number] Unlisted, Ordering Provider, Social History Tobacco Use [...] - 6.3 % 08/22/2018 11:58 AM CDT [facility] Estimated Average Glucose 120 mg/dL 08/22/2018 11:58 AM CDT [facility] Comment: HbA1c Interpretation: Treatment target values recommended by ADA and other clinical organizations should be used to evaluate metabolic control in patients. Treatment Target Values: Normal : < 5.7% Pre-diabetes: 5.7-6.4% Diabetes: Equal to or greater than 6.5% Reference: English Diabetes Association Standards of Care in Diabetes -2014 In patients 70 years and older consider HbA1c target range of 7.0-7.5% Reference: Diabetes Mellitus in Older People: Position Statement on behalf of the International Association of Gerontology and Geriatrics (IAGG), the Diabetes Working Libertarian for Older People (EDWPOP), and the International Task Force of Experts in Diabetes. Pj Brandon, et al. J English Medical Directors Association. 2012 Test results diagnostic [...] - CHEM ISTRY ORDERABLES Performing Organization Address City/State/[facility] Co de Phone Number [address] [phone] * (ABNORMAL) LIPID PROFILE (08/22/2018 7:20 AM CDT) [facility] Signature Cholesterol Total 93 <200 mg/dL 08/22/2018 10:49 AM [facility] HDL 32(L) >40 mg/dL 08/22/2018 10:49 AM [facility] Comment: ATP III Classification of HDL Cholesterol: <40 mg/dL: Considered a major risk factor. >60 mg/dL: Considered a negative risk factor. LDL Calculated 36 <100 mg/dL 08/22/2018 10:49 AM [facility] Comment: ATP III Classification of LDL [...] Provider Unlisted LAB - CHEM ISTRY ORDERABLES [address] [phone] * GLUCOSE VITALITY (08/22/2018 7:20 AM CDT) Glucose 101 70 - 115 mg/dL 08/22/2018 10:23 AM CDT [facility] Blood BLOOD SPECIMEN / Unknown Lab Venipuncture / Unknown 08/22/2018 7:20 AM CDT 08/22/2018 9:54 AM CDT Ordering Provider Unlisted LAB - CHEM ISTRY ORDERABLES [address] [phone] documented in this encounter Visit Diagnoses Not on filedocumented in this encounter Care Teams Multimedia Programmer Relationship Specialty Start Date End Date Maykel Gramajo MD [address] [place] [address] PCP - General 07/28/20 documented as of this encounter
--- OUTSIDE RECORDS SUMMARY | 2025-02-19 11:07 | XMS_ITS | Encounter Summary ---
Author Organization [facility] IO[facility] Manzanares [facility] Address [address] [place] [address] Care Team Providers Care Pleat Patternmaker Name Role Phone Maykel Gramajo MD Primary Care Provider [phone] Reason for Referral * CT Scan (Urgent) - Closed Specialty Diagnoses / Procedures Referred By Contac t Referred To Contact Diagnoses Shortness of breath Procedures CTA CHEST W WO CONTRAST Khai Walsh MD [address] [place] [address] Phone: tel: fax: [facility] [address] Referral ID Status Reason Start Date Expiration Date V isits Requested Visits Authorized [id number] Closed [facility] CTS 02/19/2025 03/22/2026 1 1 Reason for Visit * Reason Comments Chemotherapy Follow Up Encounter Details Date Type Department Care Team (Late st Contact Info) Description 02/19/2025 9:15 AM CDT Office Visit [facility] Oncology and Hematology [facility] [address] [facility] [address] [place] [address] Khai Walsh MD [address] [place] [address] Prostate cancer (CMS/HCC) (Primary Dx); Shortness of breath Social History Tobacco Use Types Packs/Day Years Used Date Smoking Tobacco: Former Cigarettes 2 35 Q uit: 12/02/2004 Smokeless Tobacco: Never Tobacco Cessation:Counseling Given: Not Answered Alcohol Use Standard Drinks/Week Comments Never 0 (1 standard drink = 0.6 oz pur e alcohol) Sex and Gender Information Value Date Recorded Sex Assigned at Not on file Legal Sex Male 1:21 PM WIRE TESTER Gender Identity Not on file Sexual Orientation [...] (170 lb) 02/19/2025 9:13 AM CDT Height - - Body Mass Index 25.85 12/02/2024 10:06 AM WIRE TESTER documented in this encounter Progress Notes * Khai Walsh MD - 02/19/2025 9:03 AM CDT HEMATOLOGY / ONCOLOGY PROGRESS NOTE Patient Identification: Name: Gume Roberson Age: 74 y.o. Sex: male : 1950 DIAGNOSIS Metastatic prostate cancer CURRENT TREATMENT Chemotherapy Taxotere cycle 1 started January 29, 2025 Lupron cycle 1 received February 02, 2025 Xgeva started February 02, 2025 Zytiga 1 g daily with prednisone 5 mg twice a day TREATMENT HISTORY SUBJECTIVE Patient came to the office for follow-up visit. He is complaining of tiredness and fatigue and shortness of breath. Denies any chest pain. Complain of taste changes. No other new complaints. Review of system Constitutional: Patient did not mention fevers, sweats, complain of tiredness and fatigue HEENT: Patient did not mention sinus congestion, hearing or vision problems Respiratory: Complain of shortness of breath and dyspnea on exertion Cardiovascular: Patient did not mention chest pain, exertional chest pressure/discomfort, nausea, syncope, complain of shortness of breath GI: Patient did not mention constipation, diarrhea, dsyphagia, reflux symptoms, vomiting, melena : Patient did not mention dysuria, frequency, incontinence, urgency Integumentary system: no lymphadenopathy, sweats, flushing Musculoskeletal: Patient not mention: myalgia, arthralgia Neurological: Patient did not mention blurry or disturbed vision, numbness/weakness, dizziness Skin: No lumps, bumps or rashes. 12 point review of system was reviewed Objective: Vital signs in last 24 hours: As per nursing note Exam: General appearance: alert, cooperative, no distress, appears stated age Head: normocephalic, without obvious abnormality, atraumatic Eyes: conjunctivae/corneas clear, EOM's intact Ears: normal external ear canals AU Nose: Nares normal. Septum midline. Mucosa normal. No drainage or sinus tenderness Throat: Lips, mucosa, and tongue normal. Teeth and gums normal Neck: supple, symmetrical, trachea midline. Lungs: clear to auscultation bilaterally Heart: regular rate and rhythm, S1, S2 normal, no murmur, click, rub or gallop Abdomen: soft, non-tender. Bowel sounds normal. No masses, No organomegaly Extremities: extremities normal, atraumatic, no cyanosis or edema Skin: Skin color, texture, turgor normal. No rashes or lesions Lymph nodes: No lymphadenopathy Neuro: No obvious focal deficit Exam as above ECOG performance status 1 LABS Labs from December 02 showed hemoglobin 14.4 creatinine 1.1 PSA 30.4 alkaline phosphatase 72 Free testosterone 42.5 total testosterone 293 Labs from February 19 show WBC 11.8 hemoglobin 12.5 platelet 434,000 @IMAGEIMP@ Assessment: Plan: There are no active problems to display for this patient. Metastatic prostate cancer. Status post prostate biopsy on October 20, 2024 that showed Raul score 3+7 equal 7 adenocarcinoma. PET PSMA done on December 16, 2024 showed increased uptake in the prostate consistent with primary prostate cancer with local invasion to the bilateral seminal vesicle and multiple PSMA avid bone lesion and PSMA avid lymph nodes in abdomen and pelvis consistent with metastatic disease. Patient started palliative chemotherapy with Taxotere on January 29, 2025. He started Lupron on 2024. Patient is also on Zytiga 1 g daily with prednisone 5 mg twice a day. He came into the office for second round of chemotherapy. He is feeling quite tired and fatigued aswell as short of breath. No chest pain. I will hold chemotherapy for 1 week and order CTA chest stat today. I discussed possibility of blood clot versus fluid versus infection. He will continue treatment with Zytiga and prednisone. We also discussed changing chemotherapy to weekly basis due to poortolerance. Bone metastasis. Continue monthly Xgeva with vitamin D. Pain is under control. History of stage I lung cancer status post right middle lobe lobectomy and right upper lobe wedge done on March 14, 2024. Follow-up with Dr. Luna at [facility]. 02/19/2025 Khai Walsh MD documented in this encounter Plan of Treatment Upcoming Encounters Date Type Department Care Team (Late st Contact Info) Description 03/12/2025 11:45 AM CDT Office Visit [facility] Oncology and Hematology [facility] [address] [facility] [address] [place] [phone] Khai Walsh MD [address] [facility] [address] [place] [address] Scheduled Orders Name Type Priority Associated Diagnoses Orde r Schedule BASIC METABOLIC PANEL Lab Stat Prostate cancer (CMS/HCC) Expected: 03/12/2025, Expires: 02/19/2026 CBC WITH DIFFERENTIAL Lab Stat Prostate cancer (CMS/HCC) Expected: 03/12/2025, Expires: 02/19/2026 PSA Lab Routine Prostate cancer ([facility]/HCC) Expected: 03/12/2025, Expires: 02/19/2026 CTA CHEST W WO CONTRAST Imaging Stat Shortness of breath Expected: 02/19/2025, Expires: 02/19/2026 documented as of this encounter Visit Diagnoses Diagnosis Prostate cancer (CMS/HCC)- Primary Malignant neoplasm of prostate Shortness of breath documented in this encounter Care Teams Pleat Patternmaker Relationship Specialty Start Date End Date Maykel Gramajo MD [address] [facility] [address] [place] [address] PCP - General Family Practice 12/02/24 documented as of this encounter
--- OUTSIDE RECORDS SUMMARY | 2025-02-19 11:07 | XMS_ITS | Clinical Summary ---
Author Organization [facility] Address [address] [place] [address] Care Team Providers Care Sample Maker Hand Name Role Phone Maykel Gramajo MD Primary Care Provider [phone] Hernan Hernandez MD Unavailable [phone] Maykel Ramires MD Unavailable [phone] Maykel Villalpando MD Unavailable [phone] Allergies Active Allergy Reactions Criticality Noted Date [...] to consider that. 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 Assessment & Plan (10/18/2020 5:19 PM WAREHOUSE PRODUCTION WORKER): No symptoms of myocardial ischemia, albeit [...] made. Assessment & Plan (10/18/2020 5:19 PM WAREHOUSE PRODUCTION WORKER): He is on chronic lipid-lowering therapy. [...] No changes made. Chronic ulcerative pancolitis 04/20/2011 Encounters Date Type Department Care Team Description 01/12/2025 11:15 AM WAREHOUSE PRODUCTION WORKER Office Visit 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 [address] [place] [address] [place] [address] Mansi Melo, RN GI Advice re: PSMA Scan message(s) from Last 3 Months Immunizations Immunization Administration [...] 2020 VASCULAR SURGERY 12/31/2019 Self-expanding covered stent ([place] Viabahn 9 x 100 mm) placement to exclude right SFA/popliteal aneurysm VASCULAR SURGERY 09/03/2019 . Right lower extremity angiogram 2. Self-expanding covered stent ([place] Viabahn 9 x 150 mm) placement to exclude right SFA/popliteal aneurysm LOBECTOMY 03/12/2024 - 04/11/2024 right middle lobe Medical History Medical History Date Comments Allergic rhinitis Anxiety Peripheral vascular disease hx o f stents right leg Sinusitis DVT of lower extremity (deep venous thrombosis) ([facility]) 2004 S/pm CABG x5v Other complications of anest hesia, sequela 07/2005 Had postoperative respirator y issues after CABG x5 necessitating prolonged intubation Coronary artery disease Hyperlipidemia Diverticulitis 2007 Colovesical fist william requiring surgery Cataract Hypertension Clotting disorder Neuromuscular disorder (HCC) left foot Aortic stenosis History of blood transfusion 07/2005 Vision loss of left eye COPD (chronic obstructive pu lmonary disease) ([facility]) 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 ([facility]) 03/2024 lobectomy with thoractomy Delayed emergence from gener al anesthesia Family History Medical History Relation Name Comments Colon cancer Child son Asthma Father Gume Roberson SR Heart attack Mother Radha Roberson Myocardial In farction; Heart disease Mother Radha Roberson Hypertension Mother Radha Roberson Family histor y of hypertension - (Added by TW Conv) Arthritis Other Stroke Neg Hx Relation Name Status Comments Child son Alive Father Gume Roberson SR Mother Radha Roberson Alive Other [...] on file Legal Sex Male 7:01 PM WAREHOUSE PRODUCTION WORKER Gender Identity Not on file Sexual Orientation Not on file Obstetrics History Last Filed Vital Signs Vital Sign Reading Time Taken Comments Blood Pressure 145/68 01/12/2025 10:40 AM WAREHOUSE PRODUCTION WORKER Pulse 66 01/12/2025 10:40 AM WAREHOUSE PRODUCTION WORKER Temperature 36.5 C (97.7 F) 01/12/2025 10:40 AM WAREHOUSE PRODUCTION WORKER Respiratory Rate 18 10/16/2024 9:51 AM WAREHOUSE PRODUCTION WORKER Oxygen Saturation 95% 10/16/2024 9:51 AM WAREHOUSE PRODUCTION WORKER Inhaled Oxygen Concentration - - Weight 79.4 kg (175 lb) 01/12/2025 10:40 AM WAREHOUSE PRODUCTION WORKER Height 175.3 cm (5' 9 ) 01/12/2025 10:40 AM WAREHOUSE PRODUCTION WORKER Body Mass Index 25.84 01/12/2025 10:40 AM WAREHOUSE PRODUCTION WORKER Plan of Treatment Health Maintenance Due Date Last Done Comments Depression Screening 1950 Hepatitis C Screening 1950 Hepatitis B Screening 1968 Pneumococcal vaccine 65+ (1 of 2 - PCV) 1969 Zoster Vaccine (1 of 2) 1969 Well Visit 65+ 2015 Covid-19 Vaccine (2023-2 5 season) 2024 09/21/2023, 09/09/2022, 03/29/2022, Additional history exists Influenza Vaccine (Season Ended) 2025 08/23/2023, 08/17/2022, 08/19/2019, Additional history exists Fall Risk [...] 10/16/2024, 09/22/2013 Medical Devices Implanted Type Area Branch Mechanic Device Identifier Shelf Expiration Date Model / Serial / Lot [employer] [id number] Viabahn 9mm 9fr 15cm 120cm Iliac Artery Stent Endoprosthesis - [id number] - [id number] Implanted:Qty: 1 on 09/03/2019 by Hernan Hernandez MD at [facility] Stent [employer] [id number] 07/22/2021 [id number] / [id number] / Description:Distal SFA Popli teal Artery [employer] [id number] Viabahn 9mm 9fr 10cm 120cm Delivery System Tip To Hub Deployment - [id number] - [id number] Implanted:Qty: 1 on 12/31/2019 by Hernan Hernandez MD at [facility] Stent Right: Leg [employer] [employer] [id number] 06/10/2022 [id number] / [id number] / [employer] Device Vascular Closure Femoral Artery Bioabsorbable Dual Method Vascade 6-7fr Collagen [id number] - S0 - [id number] Implanted:Qty: 1 on 07/25/2024 by Sigifredo Das MD at [facility] Vascular Closure Device [employer] 04/21/2026 [id number] / 0 / [id number] [employer]is Mynxgrip 5fr Balloon Catheter Integrate Sealant Lock Latex Free [id number] - S0 - [id number] Implanted:Qty: 1 on 07/25/2024 by Sigifredo Das MD at [facility] Vascular Closure Device [employer] 05/05/2026 [id number] / [id number] / [id number] Procedures Procedure Name Priority Date/Time Associated Diagnosis Comments COLONOSCOPY 10/16/2024 8:40 AM WAREHOUSE PRODUCTION WORKER CTA ABDOMINAL AORTA AND BILATERAL ILIOFEMORAL RUNOFF Schedule Routine, Read Routine (OP Routine) 01/15/2024 10:28 AM WAREHOUSE PRODUCTION WORKER Popliteal artery aneurysm from Last 3 Months or Most Recently Relevant to Health Maintenance Results * Colonoscopy (10/16/2024 8:40 AM WAREHOUSE PRODUCTION WORKER) Anatomical Region Laterality Modality Other Narrative Procedure Note Mendel Sung MD - 10/16/2024 8:40 AM CST [facility] ENDOSCOPY [facility] Patient Name: Gume Roberson Procedure Date: 10/16/2024 8:40 AM Date of : 1950 Admit Type: Outpatient Age: 74 Gender: Male Attending MD: Mendel Sung M.D. Room: [facility] ENDOSCOPY ROOM 8 Note Status: [...] The scope was passed under direct vision.The [id number] endoscope was introduced through the anus and advanced to the cecum, identified by appendiceal orifice and ileocecal valve. The colonoscopy was performed without difficulty. The patient tolerated the procedure well. The qualityof the bowel preparation was evaluated using the BBPS ([place] Bowel Preparation Scale) with scores of:Right Colon [...] business hours - Please call theNurse Coordinator: [phone]. After hours, evening, nights, weekends and holidays- Please call the hospital legger press operator at and ask for the GI fellow percussion welding machine operator. Electronically signed by Mendel Sung MD Mendel Sung M.D. 10/16/2024 9:23:20 AM . Number of Addenda: 0 Note Initiated On: 10/16/2024 8:40 AM Mendel Sung MD ENDOSCOPY PROCEDURES Final Result * CTA Abdominal Aorta And Bilateral Iliofemoral Runoff (01/15/2024 10:28 AM WAREHOUSE PRODUCTION WORKER) Anatomical Region Laterality Modality Body Bilateral Computed Tomogra phy 01/15/2024 11:5 2 AM WAREHOUSE PRODUCTION WORKER Addenda Addendum by Jason Mahan MD on 03/03/2024 3:45 PM CDT Follow up Cardiothoracic Surgery consult and PET/CT done on 02/07/24. Margarita CHAVEZ, RN. Edited by: Margarita Mccabe Electronically signed by: Jason Mahan M.D. Impressions 01/15/2024 1:08 PM WAREHOUSE PRODUCTION WORKER 1. Spiculated soft tissue nodule in [...] Jason Mahan M.D. Narrative 01/15/2024 1:08 PM WAREHOUSE PRODUCTION WORKER EXAMINATION: CT ANGIOGRAPHY OF THE ABDOMEN, [...] by: Jason Mahan M.D. Garo Barton MD IM CT PROCEDURES Edited Resul t - Final from Last 3 Months or Most Recently Relevant to Health Maintenance Insurance MEDICARE [facility] Advance Directives For more information, please contact: [phone] Documents on File Type Date Recorded Patient Bleach Machine Operator Expl anation Power of [place] Carpenter 07/25/2024 6:24 AM * Full Code (Latest [...] 4:37 PM 09/04/2019 7:06 PM Care Teams Sample Maker Hand Relationship Specialty Start Date End Date Maykel Gramajo MD PCP - General 02/09/17 Hernan Hernandez MD Surgeon Vascular Surgery 09/04/19 Maykel Ramires MD [address] [place] [address] Referring Physician Cardiology 07/25/24 Maykel Villalpando MD [address] [place] [address] Consulting Physician Cardiothoracic Surgery 07/25/24
--- OUTSIDE RECORDS SUMMARY | 2025-02-19 11:07 | XMS_ITS ---
Author Organization [facility] Address [address] [place] [address] Care Team Providers Care School Plant Consultant Name Role Phone Maykel Gramajo MD Primary Care Provider [phone] Hernan Hernandez MD Unavailable [phone] Maykel Ramires MD Unavailable [phone] Maykel Villalpando MD Unavailable [phone] Active Problems Patient Care Coordination No te [...] consider that. PAD (peripheral artery disease) ([facility]) 2019 Overview (05/25/2020): Added automatically from request for surgery [id number] Popliteal artery aneurysm, bilateral 12/09/2019 Overview (12/09/2019): Added automatically from request for surgery [id number] Assessment & Plan (06/11/2020 5:49 PM CDT): - S/p status post self-expanding covered stent ([place] Viabahn 9 x 150 mm) placement to [...] (08/19/2019): Added automatically from request for surgery [id number] Coronary artery disease of n ative artery of [place] heart with stable angina pectoris ([facility]) 03/28/2018 Assessment & [...] false-positive. Assessment & Plan (10/18/2020 5:19 PM ELECTRONIC SCALE SUBASSEMBLER): No symptoms of myocardial ischemia, albeit with [...] made. Assessment & Plan (10/18/2020 5:19 PM ELECTRONIC SCALE SUBASSEMBLER): He is on chronic lipid-lowering therapy. No [...] No changes made. Chronic ulcerative pancolitis 04/20/2011 Current Treatment and Therapy Plans No current [...]
== END 2025-02-19 10:20 | disposition home or self-care (01) ==
PROVIDERS: PCP Family Medicine; Visit Provider Internal Medicine Hematology & Oncology
DX: R06.02 Shortness of breath (principal); Z85.46 Personal history of malignant neoplasm of prostate; M89.9 Disorder of bone, unspecified
CPT/HCPCS: 71275; Q9967

== ENCOUNTER 2025-04-13 11:20 | Emergency (ER) | payer MEDICARE, SELFPAY ==
--- NOTE | ~2025-04-13 | XR_ITS ---
EXAMINATION: XR foot LT min 3V DATE: 04/13/2025 12:36 INDICATION: Infection at the left fifth toe TECHNIQUE: Dorsoplantar, two oblique and lateral views of the left foot were obtained. COMPARISON: None. FINDINGS: Bone alignment is normal. No fracture. Mild polyarticular osteoarthritis at the multiple tarsometatar laith, metatarsophalangeal and interphalangeal joints. Small plantar calcaneal spur. No periosteal reac tion or cortical erosions to suggest osteomyelitis. Soft tissues are unremarkable with no radiopaque foreign bodies or soft tissue gas. IMPRESSION: 1. 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 Reviewed, dictated and finalized at location A.
[2025-04-13 11:27] VITALS: BP 100/61; PULSE 89; RESP 22; TEMP 36.9; O2SAT 98
--- NOTE | 2025-04-13 12:11 | ED_ITS ---
HPI - Extremity Injury (Lower) General Chief Complaint: Extremity Injury, Lower Stated Complaint: Infection Left Foot Source: patient Mode of arrival: ambulatory Limitations: no limitations History of Present Illness HPI Narrative: Patient is a 74 year old male who presents to the clinic with complaints of an infection to his left fifth toe that is not improving. He is currently being treated for prostate cancer. His oncologist gave him Keflex for his toe infection 4 days ago that has been present a week. Patient states he has pain and swelling to the area. No improvement has been seen since taking the antib iotics. Patient states that he has hydrocodone at home that he is taking for pain control. Related Data Home Medications ?Medication ?Instructions ?Recorded ?Confirmed ?Last Taken ?Type aspirin 81 mg tablet,delayed 81 mg PO DAILY 10/17/19 04/13/25 01/10/25 History release (Josselin Low Dose Aspirin) cholecalciferol (vitamin D3) 125 5,000 unit PO DAILY 10/17/19 03/20/25 01/10/25 History mcg (5,000 unit) capsule mesalamine 1.2 gram tablet,delayed 2.4 gm PO DAILY 10/17/19 03/20/25 01/13/25 History release (Lialda) metoprolol succinate 25 mg 25 mg PO HS 10/17/19 03/20/25 01/13/25 History tablet,extended release 24 hr (Toprol XL) multivitamin 1 tablet PO DAILY 10/17/19 03/20/25 01/10/25 History nitroglycerin 0.4 mg sublingual 0.4 mg sublingual DIRECTED 09/17/23 04/13/25 Unknown History tablet rivaroxaban 10 mg tablet (Xarelto) 10 mg PO HS 06/26/24 04/13/25 01/10/25 History abiraterone 250 mg tablet 1,000 mg PO DAILY 01/01/25 03/20/25 01/14/25 08:00 History prednisone 5 mg tablet 5 mg PO Q12H 01/01/25 03/20/25 01/14/25 09:00 History cephalexin 500 mg capsule mg 04/13/25 Unknown History Allergies Allergy/AdvReac Type Severity Reaction Status Date / Time escitalopram Allergy Unknown Asthma Verified 04/13/25 11:50 sildenafil Allergy Unknown Hypotension Verified 04/13/25 11:50 Penicillins AdvReac Mild Diarrhea Verified 04/13/25 11:50 amoxicillin AdvReac Unknown Diarrhea Verified 04/13/25 11:50 ciprofloxacin AdvReac Unknown Diarrhea Verified 04/13/25 11:50 gemfibrozil AdvReac Unknown myalgias Verified 04/13/25 11:50 lactase AdvReac Unknown Nausea Verified 04/13/25 11:50 Review of Systems Review of Systems: CONSTITUTIONAL: Denies body aches, fever, chills EYES: Denies visual changes ENT: Denies rhinorrhea, congestion CARDIOVASCULAR: Denies chest pain, palpitations, or edema. RESPIRATORY: Denies cough or dyspnea. SKIN: Reports an infection to his fifth toe on the left foot. MUSCULOSKELETAL: Denies back pain, joint pain, or myalgia. NEUROLOGIC: Denies headache, numbness, tingling, or weakness. All systems reviewed & are unremarkable except as noted in HPI and below PMFSH Past Medical History Medical History Allergic rhinitis Deviated nasal septum Anterior epistaxis Squamous cell carcinoma lung Anxiety Fistula Bundle branch block, right COPD (chronic obstructive pulmonary disease) Coronary artery disease Proctitis Ulcerative colitis Surgical History Surgical History Port-A-Cath in place 01/14/25 Placement right internal jugular vein Port-A-Cath using ultrasound and under fluoroscopy per Dr. Arenas History of lobectomy of lung S/P pneumonectomy H/O heart bypass surgery History of colon surgery Family History Family History Father Asthma Mother Acute myocardial infarction Son Carcinoma of colon Other Family history of cardiovascular disease Social History Social History Social History: Caffeine-tea Smoking packs per day: 2 Smoking cigarettes per day: 40.0 Years smoked: 35 Smoking pack-years: 70.00 Smoking status: Former smoker Tobacco type: cigarettes Second hand tobacco smoke exposure: No Smoking end date: 11/12/04 Alcohol intake: never Substance use: never Substance use type: does not use Do You Feel Safe in your Home?: Yes Lack of Transportation: No Lack of Food: Never True Current Housing: I Have Housing Concerned About Future Housing: No Difficulty Paying Gas/Electric Bills: No Difficulty Paying for Meds: No Currently Unemployed: No Education: Bachelor's Degree Difficulty w/ Childcare or Family Care: No Living arrangements: with family Additional living arrangements comments: Spiritual care concerns: No Comments At time of signature, I have reviewed and agree with nursing past medical, surgical, social and family history unless otherwise noted. Please see nursing chart for further information. There is no relevant family history pertinent to the presenting complaint. Exam Narrative: MUSCULOSKELETAL EXAM GENERAL: Well-appearing, well-nourished, and in no acute distress. HEAD: Normocephalic, atraumatic. NECK: Supple. CHEST: Speaks in full sentences. No respiratory distress. HEART: Regular rate and rhythm. Normal and equal peripheral pulses. SKIN: Warm, dry. Fifth toe ulcerated on lateral side. Edema and erythema noted. Edema extends through foot. Tenderness to palpation. Capillary refill less than 3 seconds. Pressure ulcer stage II noted to left heel. NEURO: Alert and oriented x3. PSYCH: Normal mood and affect Course Course Level of Care: Express Care Visit Vital Signs Vital signs: Vital Signs Temperature 98.5 F 04/13/25 11:27 Pulse Rate 89 04/13/25 11:27 Respiratory Rate 22 H 04/13/25 11:27 Blood Pressure 100/61 04/13/25 11:27 Pulse Oximetry 98 04/13/25 11:27 Oxygen Delivery Room Air 04/13/25 11:27 Temperature 98.5 F 04/13/25 11:27 Pulse Rate 89 04/13/25 11:27 Respiratory Rate 22 H 04/13/25 11:27 Blood Pressure 100/61 04/13/25 11:27 Pulse Oximetry 98 04/13/25 11:27 Oxygen Delivery Room Air 04/13/25 11:27 Reviewed. MDM - Extremity Injury (Lower) MDM Narrative Medical decision making narrative: Discussed physical exam findings and xray. Explained in depth to patient that he has failed outpatient treatment and needs to go to ER for further evaluation. Patient signing out AMA. Not agreeable to go to ER for further evaluation. Appointment scheduled for him to follow up with PCP office Sunday at 3:30. Patient states that he has hydrocodone at home that he is taking for pain. Nurse placed dressing on patient's left fifth toe. The patient is clinically sober, AA&Ox3, free from distracting injury. The patient has demonstrated concrete thinking/reasoning, has maintained an whitewasher/reasonable conversation, appears to have intact insight/judgment/reason and therefore has capacity to make decisions. Given the patients presentation, we communicated our concern for his toe infection in laymans terms. The patient verbalized an understanding. The patient is aware the evaluation is incomplete & many troublesome conditions have not been r/o. We have discussed the need for further ED. We have discussed the range of possible dx, potential testing & treatment options. Weve made efforts to prevent the pt from leaving AMA. Our discussions included the potential outcomes of leaving AMA, including worsening of their condition, becoming permanently disabled/in pain/critically ill, or . Despite these efforts, we were unable to convince the pt to go to the ER. The patient is refusing any further care and is leaving against medical advice. We have attempted to offer tx/rx/guidance for any dangerous conditions which are most likely and/or dangerous. We have answered all questions and have implored the patient to go to ER [facility] to complete the w/u. A staff member witnessed the patient consenting to AMA. Differential Diagnosis Differential diagnosis: Likely other (infection of 5th toe, osteomyelitis. ) Imaging Data Radiologist's impression: ITS Impressions Foot X-Ray 04/13/25 12:47 IMPRESSION: 1. 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 Critical Care Time Critical Care Time Critical Care Time: No Discharge Plan Discharge Clinical Impression: Infected abrasion of fifth toe Qualifiers: Encounter type: initial encounter Laterality: left Qualified Code(s): S90.415A - Abrasion, left lesser toe(s), initial encounter Patient Disposition: Left Against Medical Advice Condition: Stable Instructions: Acute Wounds (DC) Additional Instructions: You were advised to go to the ER and you declined. You are aware of the risks. Elevate your left leg when possible without putting any pressure on your left heel. Keep your toe covered and clean. You have an appointment scheduled with Maykel Gramajo's office April 17 at 3:30pm. Please be sure to make it to this appointment. Patient Language: [place] Prescriptions: New doxycycline hyclate 100 mg capsule 100 mg PO BID 7 Days Qty: 14 0RF No Action cephalexin 500 mg capsule aspirin [Josselin Low Dose Aspirin] 81 mg tablet,delayed release (DR/EC) 81 mg PO DAILY Patient Comments: on hold due to past nosebleeds. mesalamine [Lialda] 1.2 gram tablet,delayed release (DR/EC) 2.4 gm PO DAILY multivitamin Tablet 1 tablet PO DAILY metoprolol succinate [Toprol XL] 25 mg tablet extended release 24 hr 25 mg PO HS cholecalciferol (vitamin D3) 5,000 unit capsule 5,000 unit PO DAILY nitroglycerin 0.4 mg tablet, sublingual 0.4 mg sublingual DIRECTED prednisone 5 mg tablet 5 mg PO Q12H abiraterone 250 mg tablet 1,000 mg PO DAILY Patient Comments: .. Rx Instructions: must be taken on empty stomach, at least 1 hr before or 2 hrs after a meal/food Xarelto 10 mg tablet 10 mg PO HS Patient Comments: HOld [address] Arenas. Remains on hold. triamcinolone acetonide 0.1 % cream 1 applic TOPICAL BID Qty: 80 1RF tamsulosin 0.4 mg capsule 0.4 mg PO QHS Qty: 90 1RF Patient Comments: has not been taking fenofibrate 160 mg tablet See Rx Instructions .ROUTE .COMPLEX Qty: 90 3RF Dose Instruction: TAKE 1 TABLET BY MOUTH DAILY Rx Instructions: TAKE 1 TABLET BY MOUTH DAILY alprazolam [Xanax] 0.25 mg tablet 0.25 mg PO TID PRN (Reason: anxiety) Qty: 90 1RF Patient Comments: . simvastatin [Zocor] 20 mg tablet 20 mg PO HS Qty: 90 1RF Patient Comments: . pregabalin [Lyrica] 100 mg capsule 100 mg PO Q12H 90 Days Qty: 180 1RF Patient Comments: Nightly only unless lots pain Follow-up/Referrals: Maykel Gramajo MD [Primary Care Provider] - Time of Disposition: 13:41
== END 2025-04-13 14:00 | disposition left against medical advice (07) ==
PROVIDERS: PCP Family Medicine
DX: S90.415A Abrasion, left lesser toe(s), initial encounter (principal); L08.9 Local infection of the skin and subcutaneous tissue, unspecified; X58.XXXA Exposure to other specified factors, initial encounter; C61 Malignant neoplasm of prostate; I25.10 Atherosclerotic heart disease of native coronary artery without angina pectoris; J44.9 Chronic obstructive pulmonary disease, unspecified; Z85.118 Personal history of other malignant neoplasm of bronchus and lung; Z90.2 Acquired absence of lung [part of]; Z95.1 Presence of aortocoronary bypass graft; F41.9 Anxiety disorder, unspecified; Z87.891 Personal history of nicotine dependence; Z79.82 Long term (current) use of aspirin; Z79.01 Long term (current) use of anticoagulants
CPT/HCPCS: 73630; 99213; G0463

== ENCOUNTER 2025-04-14 08:55 | Emergency (ER) | payer MEDICARE, SELFPAY ==
--- NOTE | ~2025-04-14 | CT_ITS ---
EXAMINATION: CTA abd aorta runoff DATE: 04/14/2025 11:21 INDICATION: Decreased peripheral pulses. Necrotic toe. TECHNIQUE: Computed tomographic angiography (CTA) of the abdominal, pelvis, and both lower extremitie s was performed with 150 mL Omnipaque 350 intravenous contrast. Automated exposure control and iterat jeff reconstruction technique were employed. The dose-length product was 902.76 mGy-cm. COMPARISON: CT abdomen pelvis dated 06/05/2024 FINDINGS: ABDOMINAL AORTA AND ITS BRANCHES: Abdominal aorta is normal in caliber. There are scattered atherosclerotic plaque without hemodynamica lly since and stenosis along the abdominal and visualized lower thoracic aorta including at the origi ns of the celiac axis, superior mesenteric and bilateral renal arteries. The inferior mesenteric greyson ry is not identified which may be related to a prior left hemicolectomy with sigmoid colon anastomosi s in the deep pelvis. There is an intramural hematoma along the posterior aspect of the infrarenal ab dominal aorta with a couple small contrast-filled penetrating atherosclerotic ulcers. PELVIC VASCULATURE: There is extensive scattered atherosclerotic plaque along the bilateral common, external and internal iliac arteries. There is additional small penetrating atherosclerotic ulcers along the proximal left common iliac artery. RIGHT LOWER EXTREMITY: There is scattered atherosclerotic plaque with mild, <50% stenosis along the right common femoral and superficial femoral arteries. There is a moderate stenosis at the proximal right popliteal artery. T his located immediately proximal to a widely patent stent of the above the knee popliteal artery whic h spans a thrombosed bilobed fusiform popliteal artery aneurysm which measures up to 4.5 x 3.2 cm pro ximally and 3.4 x 3.2 cm distal. Additional scattered atherosclerotic plaque with mild stenosis at th e more caudal popliteal artery and the tibioperoneal trunk. The more caudal arteries of the calf are diffusely atretic. There is a severe stenosis at the origin of the right anterior tibial artery. Ther e is extensive calcified atherosclerotic plaque along the right posterior tibial artery which obscure s the contrast limiting assessment for degree of stenosis. There is small amount of atherosclerotic p laque with mild stenosis along the proximal right peroneal artery. There is three-vessel runoff below the ankle. LEFT LOWER EXTREMITY: There are scattered atherosclerotic plaque with mild, less than 50% stenosis at the left common femor al, profunda femoral, superficial femoral arteries. There is complete occlusion of the proximal left popliteal artery proximal to a thrombosed ctpvm-olf-yudj popliteal artery aneurysm which measures 5.3 x 5.0 cm maximal diameter. There are few regions of increased density within the thrombosed aneurysm which could represent calcifications although some at the periphery of appearance suggestive of smal l amount of contrast potentially arising from small collaterals. There is however no contiguous flow through the aneurysm. The left popliteal artery reconstitutes immediately at the distal margin of the aneurysm with additional plaque with mild stenosis along the hcrmj-eed-ghij left popliteal artery. T he arteries at the left calf are also atretic. There is severe stenosis at the origin of the left ant erior tibial artery. There is a moderate stenosis on the tibioperoneal trunk. Additional scattered at herosclerotic plaque along the more distal anterior tibial, posterior tibial and peroneal arteries wh ich are too small in caliber to assess for degree of stenosis. There is a short segmental occlusion o n the intracerebral artery at the calf. There is three-vessel runoff at the ankle. ADDITIONAL FINDINGS: Heart size is normal. Atherosclerotic coronary artery calcifications unchanged prior medial sternotom y and coronary artery bypass grafting. Mild emphysema and mild pulmonary edema at the bilateral lung bases. Multiple calcified gallstones within the otherwise normal-appearing gallbladder. Liver, spleen , pancreas, bilateral adrenal glands and kidneys are normal. Normal appendix. No bowel obstruction. B ladder is normal. Minimal amount of ascites in the deep pelvis. Severe lumbar spondylosis. There is a likely pathologic compression fracture at the diffuse sclerotic T10 vertebral body. There are severa l additional smaller sclerotic bone lesions in the visualized spine and pelvis consistent with known metastatic prostate cancer. IMPRESSION: 1. Extensive atherosclerotic disease in the lower chest, abdomen, pelvis and bilateral lower limbs w ith penetrating atherosclerotic ulcer along the infrarenal abdominal aorta. 2. 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 3. Arteries at the bilateral calves are atretic with short segmental occlusion of the left anterior t ibial artery and additional significant focal stenoses at the proximal calves as detailed above with potentially additional significant stenosis more distally along the vessels which are too small for q uantitative assessment. 4. Cholelithiasis. 5. Multiple sclerotic bone lesions consistent with known metastatic prostate cancer and chronic patho logic T10 compression fracture. Reviewed, dictated and finalized at location A. IMPRESSION: 1. Extensive atherosclerotic disease in the lower chest, abdomen, pelvis and b ilateral lower limbs with penetrating atherosclerotic ulcer along the infrarena l abdominal aorta. 2. Large bilateral thrombosed ppfog-sxu-rdxx popliteal artery aneurysms, stente d on the right where it measures up to 4.5 x 3.2 cm and without stenting on the left where it measures up to 5.3 x 5.0 cm with more distal reconstitution by teresa quinn. 3. Arteries at the bilateral calves are atretic with short segmental occlusion of the left anterior tibial artery and additional significant focal stenoses at the proximal calves as detailed above with potentially additional significant stenosis more distally along the vessels which are too small for quantitative a ssessment. 4. Cholelithiasis. 5. Multiple sclerotic bone lesions consistent with known metastatic prostate ca ncer and chronic pathologic T10 compression fracture.
[2025-04-14 09:00] VITALS: BP 130/70; PULSE 106; PULSE 97; RESP 19; RESP 20; TEMP 36.6; O2SAT 95; O2SAT 99
--- OUTSIDE RECORDS SUMMARY | 2025-04-14 09:02 | XMS_ITS | Continuity of Care Document ---
Author Organization [facility] Address [address] [place] [address] Phone Care Team Providers Care Plate Mounter Name Role Phone Denis Cash Unavailable Unavailable Procedures Procedure Date Eye Exam & Treatment Refraction Advance Directives Directive Yes / No Effective Date File Name No Information Encounters Encounter Description Practice Location Reason(s) For Visit Diagnoses Date Provider Providers Copied on Encounter [facility], [address], [place], [place], [id number], [place] tel:[phone] [facility] No Information 0 Shailesh Barrios. [address] [facility] [address], [place], [address], [place]. tel:[phone] Family History Family Member Type Diagnosis Age At Onset No Information Payers Payer name Insurance type Covered republican ID Authoriza titerell(s) [facility] Commercial CI [id number] Social History Type Description Quantity Date Captured [...]
--- OUTSIDE RECORDS SUMMARY | 2025-04-14 09:02 | XMS_ITS | Referral Summary ---
Author Organization [facility] Address [address] [place] [address] Care Team Providers Care Registered Nurse Supervisor Name Role Phone Maykel Gramajo MD Primary Care Provider [phone] Hernan Hernandez MD Unavailable [phone] Maykel Ramires MD Unavailable [phone] Maykel Villalpando MD Unavailable Encounters Date Type Department Care Team Description 01/12/2025 11:15 AM [employer] Office Visit [facility] G[facility]enterology [address] [place] [address] [place] [id number] Mendel Sung MD PAD (peripheral artery disease) (CMS/HCC) (HCC) (Primary Dx); Coronary artery disease of swinomish artery of swinomish heart with stable angina pectoris (CMS/HCC) (HCC); 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 (HCC); Prostate cancer metastatic to bone (HCC) from Last 3 Months Allergies Active Allergy [...] 5 Active predniSONE (DELTASONE) 5 mg tablet Active Active Problems Patient Care Coordination No [...] to consider that. PAD (peripheral artery disease) (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) 03/28/2018 Assessment & Plan (03/17/2024 9:27 AM [...] false-positive. Assessment & Plan (10/18/2020 5:19 PM [employer]): No symptoms of myocardial ischemia, albeit with [...] made. Assessment & Plan (10/18/2020 5:19 PM [employer]): He is on chronic lipid-lowering therapy. No [...] on file Legal Sex Male 7:01 PM [employer] Gender Identity Not on file Sexual Orientation Not on file Last Filed Vital Signs Vital Sign Reading Time Taken Comments Blood Pressure 145/68 01/12/2025 10:40 AM [employer] Pulse 66 01/12/2025 10:40 AM [employer] Temperature 36.5 C (97.7 F) 01/12/2025 10:40 AM [employer] Respiratory Rate 18 10/16/2024 9:51 AM [employer] Oxygen Saturation 95% 10/16/2024 9:51 AM [employer] Inhaled Oxygen Concentration - - Weight 79.4 kg (175 lb) 01/12/2025 10:40 AM [employer] Height 175.3 cm (5' 9) 01/12/2025 10:40 AM [employer] Body Mass Index 25.84 01/12/2025 10:40 AM [employer] Plan of Treatment Not on file Medical Devices Implanted Type Area Bean Viner Device Identifier Shelf Expiration Date Model / Serial / Lot Wl [employer] [id number] Viabahn 9mm 9fr 15cm 120cm Iliac Artery Stent Endoprosthesis - [id number] - [id number] Implanted:Qty: 1 on 09/03/2019 by Hernan Hernandez MD at [facility] Stent Wl [employer] [id number] 07/22/2021 [id number] / [id number] / Description:Distal SFA Popli teal Artery Wl [employer] [id number] Viabahn 9mm 9fr 10cm 120cm Delivery System Tip To Hub Deployment - [id number] - [id number] Implanted:Qty: 1 on 12/31/2019 by Hernan Hernandez MD at [facility] Stent Right: Leg Wl [employer] [id number] 06/10/2022 [id number] 2A / [id number] / [employer] Device Vascular Closure Femoral Artery Bioabsorbable Dual Method Vascade 6-7fr Collagen [id number] - S0 - [id number] Implanted:Qty: 1 on 07/25/2024 by Sigifredo Das MD at [facility] Vascular Closure Device [employer] 04/21/2026 [id number] / 0 / [id number] Cordis Mynxgrip 5fr Balloon Catheter Integrate Sealant Lock Latex Free [id number] - S0 - [id number] Implanted:Qty: 1 on 07/25/2024 by Sigifredo Das MD at [facility] Vascular Closure Device [employer] 05/05/2026 [id number] / [id number] / [id number] Procedures Procedure Name Priority Date/Time Associated Diagnosis Comments COLONOSCOPY 10/16/2024 8:40 AM [employer] CTA ABDOMINAL AORTA AND BILATERAL ILIOFEMORAL RUNOFF Schedule Routine, Read Routine (OP Routine) 01/15/2024 10:28 AM [employer] Popliteal artery aneurysm from Last 3 Months or Most Recently Relevant to Health Maintenance Results * Colonoscopy (10/16/2024 8:40 AM [employer]) Anatomical Region Laterality Modality Other Narrative Procedure Note Mendel Sung MD - 10/16/2024 8:40 AM [facility] Patient Name: Gume Roberson Procedure Date: 10/16/2024 8:40 AM Date of : 1950 Admit Type: Outpatient Age: 74 Gender: Male Attending MD: Mendel Sung M.D. Room: [facility] ENDOSCOPY ROOM 8 Note Status: [...] The scope was passed under direct vision.The [id number] endoscope was introduced through the anus and advanced to the cecum, identified by appendiceal orifice and ileocecal valve. The colonoscopy was performed without difficulty. The patient tolerated the procedure well. The qualityof the bowel preparation was evaluated using the BBPS ([place] Bowel Preparation Scale) with scores of:Right Colon [...] During normal business hours - Please call [facility] Coordinator: [phone]. After hours, evening, nights, weekends and holidays- Please call the hospital curve saw operator at and ask for the GI fellow residential direct support professional. Electronically signed by Mendel Sung MD Mendle Sung M.D. 10/16/2024 9:23:20 AM . Number of Addenda: 0 Note Initiated On: 10/16/2024 8:40 AM us Mendel Sung MD ENDOSCOPY PROCEDURES Final Result * CTA Abdominal Aorta And Bilateral Iliofemoral Runoff (01/15/2024 10:28 AM [employer]) Anatomical Region Laterality Modality Body Bilateral Computed Tomogra phy 01/15/2024 11:5 2 AM [employer] Addenda Addendum by Jason Mahan MD on 03/03/2024 3:45 PM CDT Follow up Cardiothoracic Surgery consult and PET/CT done on 02/07/24. Margarita CHAVEZ, RN. Edited by: Margarita Mccabe Electronically signed by: Jason Mahan M.D. Impressions 01/15/2024 1:08 PM [employer] 1. Spiculated soft tissue nodule in the [...] Jason Mahan M.D. Narrative 01/15/2024 1:08 PM [employer] EXAMINATION: CT ANGIOGRAPHY OF THE ABDOMEN, PELVIS, [...] Recently Relevant to Health Maintenance Insurance MEDICARE [facility] Address: [facility] [address] [place] [address] [facility] MEDICARE [facility] MEDICARE [facility] Advance Directives For more information, please contact: [phone] Documents on File Type Date Recorded Patient Consulting Analyst Expl anation Power of Automatic Lathe Operator 07/25/2024 6:24 AM * Full Code (Latest [...] 4:37 PM 09/04/2019 7:06 PM Care Teams Registered Nurse Supervisor Relationship Specialty Start Date End Date Maykel Gramajo MD PCP - General 02/09/17 Hernan Hernandez MD Surgeon Vascular Surgery 09/04/19 Maykel Ramires MD [address] [place] [address] Referring Physician Cardiology 07/25/24 Maykel Villalpando MD [address] [place] [address] Consulting Physician Cardiothoracic Surgery 07/25/24
--- OUTSIDE RECORDS SUMMARY | 2025-04-14 09:02 | XMS_ITS | Clinical Summary ---
Author Organization [facility] Address [address] [place] [address] Care Team Providers Care Size Worker Name Role Phone Maykel Gramajo MD Primary Care Provider [phone] Hernan Hernandez MD Unavailable [phone] Maykel Ramires MD Unavailable [phone] Maykel Villalpando MD Unavailable [phone] Allergies Active Allergy Reactions Criticality Noted Date [...] to consider that. PAD (peripheral artery disease) ([facility] 2019 Overview (05/25/2020): Added automatically from request for surgery [id number] Popliteal artery aneurysm, bilateral 12/09/2019 Overview (12/09/2019): Added automatically from request for surgery [id number] Assessment & Plan (06/11/2020 5:49 PM CDT): - S/p status post self-expanding covered stent (Orange Viabahn 9 x 150 mm) placement to [...] (08/19/2019): Added automatically from request for surgery [id number] Coronary artery disease of n ative artery of [place] heart with stable angina pectoris ([facility]) 03/28/2018 Assessment & Plan (03/17/2024 9:27 AM [...] false-positive. Assessment & Plan (10/18/2020 5:19 PM EMERGENCY VETERINARIAN): No symptoms of myocardial ischemia, albeit with [...] made. Assessment & Plan (10/18/2020 5:19 PM EMERGENCY VETERINARIAN): He is on chronic lipid-lowering therapy. 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 Right lower extremity angiogram 2. Self-expanding covered stent (Orange Viabahn 9 x 150 mm) placement to exclude right SFA/popliteal aneurysm LOBECTOMY 03/12/2024 - 04/11/2024 right middle lobe Medical History Medical History Date Comments Allergic rhinitis Anxiety Peripheral vascular disease hx o f stents right leg Sinusitis DVT of lower extremity (deep venous thrombosis) ([facility]) 2004 S/pm CABG x5v Other complications of anest hesia, sequela 07/2005 Had postoperative respirator y issues after CABG x5 necessitating prolonged intubation Coronary artery disease Hyperlipidemia Diverticulitis 2006 Colovesical fist william requiring surgery Cataract Hypertension Clotting disorder Neuromuscular disorder (HCC) left foot Aortic stenosis History of blood transfusion 07/2005 Vision loss of left eye COPD (chronic obstructive pu lmonary disease) ([facility]) 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 [...] on file Legal Sex Male 7:01 PM EMERGENCY VETERINARIAN Gender Identity Not on file Sexual Orientation Not on file Obstetrics History Last Filed Vital Signs Vital Sign Reading Time Taken Comments Blood Pressure 145/68 01/12/2025 10:40 AM EMERGENCY VETERINARIAN Pulse 66 01/12/2025 10:40 AM EMERGENCY VETERINARIAN Temperature 36.5 C (97.7 F) 01/12/2025 10:40 AM EMERGENCY VETERINARIAN Respiratory Rate 18 10/16/2024 9:51 AM EMERGENCY VETERINARIAN Oxygen Saturation 95% 10/16/2024 9:51 AM EMERGENCY VETERINARIAN Inhaled Oxygen Concentration - - Weight 79.4 kg (175 lb) 01/12/2025 10:40 AM EMERGENCY VETERINARIAN Height 175.3 cm (5' 9) 01/12/2025 10:40 AM EMERGENCY VETERINARIAN Body Mass Index 25.84 01/12/2025 10:40 AM EMERGENCY VETERINARIAN Plan of Treatment Health Maintenance Due Date [...] 10/16/2024, 09/22/2013 Medical Devices Implanted Type Area Curtain Stretcher Device Identifier Shelf Expiration Date Model / Serial / Lot Wl [employer] [id number] Viabahn 9mm 9fr 15cm 120cm Iliac Artery Stent Endoprosthesis - [id number] - [id number] Implanted:Qty: 1 on 09/03/2019 by Hernan Hernandez MD at [facility] Stent Wl [employer] [id number] 07/22/2021 [id number] / [id number] / Description:Distal SFA Popli teal Artery Wl [employer] [id number] Viabahn 9mm 9fr 10cm 120cm Delivery System Tip [employer] - [id number] - [id number] Implanted:Qty: 1 on 12/31/2019 by Hernan Hernandez MD at [facility] Stent Right: Leg Wl [employer] [id number] 06/10/2022 [id number] / [id number] / [employer] Device Vascular Closure Femoral Artery Bioabsorbable Dual Method Vascade 6-7fr Collagen [id number] - S0 - [id number] Implanted:Qty: 1 on 07/25/2024 by Sigifredo Das MD at [facility] Vascular Closure Device [employer] 04/21/2026 [id number] / 0 / [id number] Cordis Mynxgrip 5fr Balloon Catheter Integrate Sealant Lock Latex Free [id number] - S0 - [id number] Implanted:Qty: 1 on 07/25/2024 by Sigifredo Das MD at [facility] Vascular Closure Device [employer] 05/05/2026 [id number] / [id number] / [id number] Procedures Procedure Name Priority Date/Time Associated Diagnosis Comments COLONOSCOPY 10/16/2024 8:40 AM EMERGENCY VETERINARIAN CTA ABDOMINAL AORTA AND BILATERAL ILIOFEMORAL RUNOFF Schedule Routine, Read Routine (OP Routine) 01/15/2024 10:28 AM EMERGENCY VETERINARIAN Popliteal artery aneurysm from Last 3 Months or Most Recently Relevant to Health Maintenance Results * Colonoscopy (10/16/2024 8:40 AM EMERGENCY VETERINARIAN) Anatomical Region Laterality Modality Other Narrative Procedure Note Mendel Sung MD - 10/16/2024 8:40 AM [facility] Patient Name: Gume Roberson Procedure Date: 10/16/2024 8:40 AM Date of : 1950 Admit Type: Outpatient Age: 74 Gender: Male Attending MD: Mendel Sung M.D. Room: [facility] ENDOSCOPY [facility]OM 8 Note Status: Finalized [...] The scope was passed under direct vision.The [id number] endoscope was introduced through the anus and advanced to the cecum, identified by appendiceal orifice and ileocecal valve. The colonoscopy was performed without difficulty. The patient tolerated the procedure well. The qualityof the bowel preparation was evaluated using the BBPS ([place] Bowel Preparation Scale) with scores of:Right Colon [...] business hours - Please call theNurse Coordinator: [phone]. After hours, evening, nights, weekends and holidays- Please call the hospital through operator at and ask for the GI fellow operations tech. Electronically signed by Mendel Sung MD Mendel Sung M.D. 10/16/2024 9:23:20 AM . Number of Addenda: 0 Note Initiated On: 10/16/2024 8:40 AM us Mendel Sung MD ENDOSCOPY PROCEDURES Final Result * CTA Abdominal Aorta And Bilateral Iliofemoral Runoff (01/15/2024 10:28 AM EMERGENCY VETERINARIAN) Anatomical Region Laterality Modality Body Bilateral Computed Tomogra phy 01/15/2024 11:5 2 AM EMERGENCY VETERINARIAN Addenda Addendum by Jason Mahan MD on 03/03/2024 3:45 PM CDT Follow up Cardiothoracic Surgery consult and PET/CT done on 02/07/24. Margarita CHAVEZ, RN. Edited by: Margarita Mccabe Electronically signed by: Jason Mahan M.D. Impressions 01/15/2024 1:08 PM EMERGENCY VETERINARIAN 1. Spiculated soft tissue nodule in the [...] Jason Mahan M.D. Narrative 01/15/2024 1:08 PM EMERGENCY VETERINARIAN EXAMINATION: CT ANGIOGRAPHY OF THE ABDOMEN, PELVIS, [...] Recently Relevant to Health Maintenance Insurance MEDICARE [facility] AARP Advance Directives For more information, please contact: [phone] Documents on File Type Date Recorded Patient Ophthalmic Lens Inspector Expl anation Power of Assistant Community Manager 07/25/2024 6:24 AM * Full Code (Latest [...] 4:37 PM 09/04/2019 7:06 PM Care Teams Size Worker Relationship Specialty Start Date End Date Maykel Gramajo MD PCP - General 02/09/17 Hernan Hernandez MD Surgeon Vascular Surgery 09/04/19 Maykel Ramires MD [address] [facility] [address] [place] [address] Referring Physician Cardiology 07/25/24 Maykel Villalpando MD [address] [facility] [address] [place] [address] Consulting Physician Cardiothoracic Surgery 07/25/24
--- OUTSIDE RECORDS SUMMARY | 2025-04-14 09:02 | XMS_ITS | Encounter Summary ---
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 Treatment Target Values: Normal : < 5.7% Pre-diabetes: 5.7-6.4% Diabetes: Equal to or greater than 6.5% Reference: [place] Diabetes Association Standards of Care in Diabetes -2014 In patients 70 years and older consider HbA1c target range of 7.0-7.5% Reference: Diabetes Mellitus in Older People: Position Statement on behalf of the International Association of Gerontology and Geriatrics (IAGG), the Diabetes Working Libertarian for Older People (EDWPOP), and the International Task Force of Experts in Diabetes. Pj Brandon, et al. J [place] Medical Directors Association. 2012 Test results diagnostic [...] 7:20 AM CDT 08/22/2018 9:54 AM CDT us Ordering Provider Unlisted MD LAB - CHEMISTRY OR DERABLES Final Result [address] [phone] * (ABNORMAL) LIPID PROFILE (08/22/2018 7:20 AM CDT) [facility] Signature Cholesterol Total 93 <200 mg/dL 08/22/2018 10:49 AM CDT [facility] HDL 32(L) >40 mg/dL 08/22/2018 10:49 AM [facility] Comment: ATP III Classification of HDL Cholesterol: <40 mg/dL: Considered a major risk factor. >60 mg/dL: Considered a negative risk factor. LDL Calculated 36 <100 mg/dL 08/22/2018 10:49 AM T [facility] Comment: ATP III Classification of LDL Cholesterol: <100 mg/dL: Optimal 100 - 129 mg/dL: Near Optimal/Above Optimal 130 - 159 mg/dL: Borderline High 160 - 189 mg/dL: High >190 mg/dL: Very High Triglycerides 125 <150 mg/dL 08/22/2018 10:49 AM CDT [facility] Comment: ATP III Classification of Triglycerides: <150 mg/dL: Normal 150 - 199 mg/dL: Borderline High 200 - 400 mg/dL: High >500 mg/dL: Very High Blood BLOOD SPECIMEN / Unknown Lab Venipuncture / Unknown 08/22/2018 7:20 AM CDT 08/22/2018 9:54 AM CDT us Ordering Provider Unlisted MD LAB - CHEMISTRY OR DERABLES Final Result [address] [phone] * GLUCOSE VITALITY (08/22/2018 7:20 AM CDT) Glucose 101 70 - 115 mg/dL 08/22/2018 10:23 AM CDT [facility] Blood BLOOD SPECIMEN / Unknown Lab Venipuncture / Unknown 08/22/2018 7:20 AM CDT 08/22/2018 9:54 AM CDT us Ordering Provider Unlisted MD LAB - CHEMISTRY OR DERABLES Final Result Performing Organization Address City/[facility]/ZIP Co de Phone Number [address] [phone] documented in this encounter Visit Diagnoses Not on filedocumented in this encounter Care Teams Crime Lab Analyst Relationship Specialty Start Date End Date Maykel Gramajo MD [address] [place] [phone] PCP - General 07/28/20 documented as of this encounter
--- OUTSIDE RECORDS SUMMARY | 2025-04-14 09:02 | XMS_ITS ---
Author Organization [facility] Address [address] [place] [address] Care Team Providers Care Optometrist Name Role Phone Maykel Gramajo MD Primary Care Provider [phone] Hernan Hernandez MD Unavailable [phone] Maykel Ramires MD Unavailable [phone] Maykel Villalpando MD Unavailable [phone] Active Problems Patient Care Coordination No te [...] to consider that. PAD (peripheral artery disease) ([facility]) 2019 Overview (05/25/2020): Added automatically from request for surgery [id number] Popliteal artery aneurysm, bilateral 12/09/2019 Overview (12/09/2019): Added automatically from request for surgery [id number] Assessment & Plan (06/11/2020 5:49 PM CDT): - S/p status post self-expanding covered stent ([place] Viabahn 9 x 150 mm) placement to [...] (08/19/2019): Added automatically from request for surgery [id number] Coronary artery disease of n ative artery of [place] heart with stable angina pectoris ([facility]) 03/28/2018 Assessment & Plan (03/17/2024 9:27 AM CDT): S/p CABG 2004 - restart low dose BB titrate up as BP/HR tolerates - continue statin meds Assessment & Plan (03/23/2021 10:02 PM CDT): He is not experiencing chest discomfort, but does have exertional dyspnea. Continue anti-platelet and beta-shirely therapy. Will obtain pharmacologic stress test, realizing that in the past this was a false-positive. Assessment & Plan (10/18/2020 5:19 PM ELECTRICITY TRADER): No symptoms of myocardial ischemia, albeit with [...] made. Assessment & Plan (10/18/2020 5:19 PM ELECTRICITY TRADER): He is on chronic lipid-lowering therapy. No [...]
--- OUTSIDE RECORDS SUMMARY | 2025-04-14 09:02 | XMS_ITS | Clinical Summary ---
Author Organization [facility] Address [address] [place] [address] Care Team Providers Care Outdoor Recreation Specialist Name Role Phone Maykle Gramajo MD Primary Care Provider [phone] Source Comments [facility],non-owned Affiliates and Associated Physician Practices is amultiple site organization consisting of ambulatory clinics and hospital sitesin [place], [place], [place] and [place]. This disclosure is being madepursuant to the Care Everywhere program and may not contain all information available regarding this patient. Last updated 18.[facility] Allergies Active Allergy Reactions Criticality Noted Date Comments Lactose GI Discomfort Low 03/25/2015 Upset stomach Medications * Be aware that medications may not be up to date on this document. Alwaysverify current medications with the patient. PROAIR HFA 108 (90 Base) MCG/ACT inhaler INHALE 2 PUFFS BY MOUTH EVERY 4 HOURS NEEDED FOR SHORTNESS OF BREATH OR WHEEZING 0 Active ALPRAZolam (XANAX) 0.25 MG tablet TAKE 1 T PO TID NEEDED FOR ANXIETY 0 Active fenofibrate (LOFIBRA) 160 MG tablet 0 Active mesalamine EC (LIALDA) 1.2 g tablet 0 Active metoprolol succinate XL 24hr (TOPROL XL) 25 MG tablet 0 Active pregabalin (LYRICA) 100 MG capsule 0 Active XARELTO 20 MG tablet 0 Active simvastatin (ZOCOR) 20 MG tablet 0 Active triamcinolone acetonide (KENALOG) 0.1 % cream ESTEVAN EXT AA BID 0 Active aspirin EC (ECOTRIN) 81 MG tablet Take 81 mg by mouth once daily Active cephalexin (KEFLEX) 500 MG capsule TAKE 1 CAPSULE BY MOUTH EVERY 12 HOURS FOR 7 DAYS 1 Active predniSONE (DELTASONE) 10 MG tablet 1 Active metoprolol succinate XL 24hr (TOPROL XL) 25 MG tablet TAKE 1 TABLET BY MOUTH DAILY 1 Active Active Problems Problem Noted Date Diagnosed Date Claudication 05/25/2020 Overview (01/24/2021): Added automatically from request for surgery [id number] Chronic rhinitis 08/21/2019 History of epistaxis 08/21/2019 Aneurysm of popliteal artery 08/19/2019 Overview (01/24/2021): Added automatically from request for surgery [id number] Added automatically from request for surgery [id number] Last Assessment & Plan: - S/p status post self-expanding covered stent ([place] Viabahn 9 x 150 mm) placement to [...] the future Coronary artery disease invo lving [place] coronary artery of [place] heart without angina pectoris 03/28/2018 Overview (01/24/2021): [...] on file 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 Gender Identity Not on file Sexual Orientation [...] 2:14 PM CDT Height 175.3 cm (5' 9) 05/12/2021 2:14 PM CDT Body Mass Index [...] 2000 ZOSTER VACCINE (1 of 2) 2000 Respiratory Syncytial Virus (RSV) Vaccine Pt: or over 60 yrs (1 - Risk 60-74 years 1-dose series) 2010 AAA SCREENING 2015 COVID-19 VACCINE (1 - 2023-2 5 season) 2024 DEPRESSION SCREENING 11/12/2024 INFLUENZA VACCINE (Season Ended) 2025 08/19/2019, 08/16/2018 [...] this topic Medical Devices Implanted Type Area Navigation Teacher Device Identifier Shelf Expiration Date Model / Serial / Lot Lens Iol 0 D +22.5 Ovidio Mod L Acrsf Iq - [id number] Implanted:Qty: 1 on 02/23/2021 by Hernan Hansen MD at [facility] Right: Eye [employer] 06/21/2023 [id number] / [id number] / Lens Iol 0 D +28.0 Ovidio Mod L Acrsf Iq - [id number] Implanted:Qty: 1 on 05/18/2021 by Hernan Hansen MD at [facility] Left: Eye [employer] 11/22/2023 [id number] / [id number] / Insurance MEDICARE [facility] MEDIC[facility] Care Teams Outdoor Recreation Specialist Relationship Specialty Start Date End Date Maykel Gramajo MD [address] [place] [phone] PCP - General 07/28/20
--- OUTSIDE RECORDS SUMMARY | 2025-04-14 09:02 | XMS_ITS | Encounter Summary ---
Author Organization [facility] [employer] [facility] Address [address] [place] [address] Care Team Providers Care Childcare Worker Name Role Phone Maykel Gramajo MD Primary Care Provider [phone] Encounter Details Date Type Department Care Team (Late Contact Info) Description 04/09/2025 Orders Only [facility] [address] [place] [address] Khai Walsh MD [facility] [employer] [address] [place] [phone] Social History Tobacco Use Types Packs/Day Years Used Date Smoking Tobacco: Former Cigarettes 2 35 Q uit: 12/02/2004 Smokeless Tobacco: Never Alcohol Use Standard Drinks/Week Comments Never 0 (1 standard drink = 0.6 oz pur e alcohol) Sex and Gender Information Value Date Recorded Sex Assigned at Not on file 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 Gender Identity Not on file Sexual Orientation Not on file documented as of this encounter Plan of Treatment Upcoming Encounters Date Type Department Care Team (Late st Contact Info) Description 04/27/2025 9:00 AM CDT Office Visit [facility] - [address] [place] [address] Khai Walsh MD [address] [employer] [address] [place] [phone] documented as of this encounter Procedures Procedure Name Priority Date/Time Associated Diagnosis Comments BASIC METABOLIC PANEL Routine 04/09/2025 3:44 PM CDT COMPREHENSIVE METABOLIC PANEL Routine 04/09/2025 3:34 PM CDT documented in this encounter Results * BASIC METABOLIC PANEL (04/09/2025 3:44 PM CDT) Blood us Khai Walsh MD CHEMISTRY ORDERABLES Final Resu lt * COMPREHENSIVE METABOLIC PANEL (04/09/2025 3:34 PM CDT) Blood us Khai Walsh MD CHEMISTRY ORDERABLES Final Resu lt documented in this encounter Visit Diagnoses Not on filedocumented in this encounter Care Teams Childcare Worker Relationship Specialty Start Date End Date Maykel Gramajo MD [address] [place] [phone] PCP - General Family Practice 12/02/24 documented as of this encounter
--- OUTSIDE RECORDS SUMMARY | 2025-04-14 09:02 | XMS_ITS | Clinical Summary ---
Author Organization [facility] Address [address] [place] [address] Care Team Providers Care Plastics Production Machine Operator Name Role Phone Maykel Gramajo MD Primary Care Provider [phone]- [phone] Allergies Active Allergy Reactions Criticality Noted Date [...] mouth daily before breakfast. 120 Tablet 4 03/30/2025 9:14 AM CDT 5 Active predniSONE (DELTASONE) 5 [...] with Docetaxel. 12 Tablet 5 5 Active furosemide (Lasix) 20 mg tablet Take 1 Tablet (20 mg) by mouth daily. 30 Tablet 1 5 Active potassium CHLORIDE (K-DUR,KLOR-CON M20) 20 mEq Extended Release tablet Take 1 Tablet (20 mEq) by mouth daily. 30 Tablet 1 5 Active diphenoxylate-a tropine 2.5 mg-0.025 mg tablet Take 1 Tablet by mouth 4 times daily as needed for Diarrhea/Loose Stools. 30 Tablet 5 Active cephALEXin (KEFLEX) 500 mg capsule Take 1 Capsule (500 mg) by mouth 4 times daily for 10 days. 40 Capsule 5 04/19/20 25 Active Active Problems No known active problems Encounters Date Type Department Care Team Description 04/09/2025 9:15 AM CDT Office Visit [facility] [place] [address] [place] [address] Khai Walsh MD Prostate cancer (CMS/HCC) (Primary Dx); Infection of nail bed of toe of left foot 04/09/2025 Orders Only [facility] [place] [address] [place] [address] Khai Walsh MD 04/07/2025 External Device Data STL ABSTRACTION Provider, Abstract 04/06/2025 Orders Only [facility] [place] [address] [place] [address] Khai Walsh MD Prostate cancer ([facility]) 04/02/2025 External Device Data STL ABSTRACTION Provider, Abstract 04/01/2025 External Device Data STL ABSTRACTION Provider, Abstract 03/31/2025 External Device Data STL ABSTRACTION Provider, Abstract 03/27/2025 Orders Only [facility] [place] [address] [place] [address] Khai Walsh MD 03/26/2025 Orders Only [facility] [place] [address] [place] [address] Khai Walsh MD 03/24/2025 Specialty Pharmacy [facility] [address] [place] [address] [place] [phone] Latoya Becerra, PHARMACIST Specialty Pharmacy Refill Coordination 03/23/2025 Orders Only [facility] [place] [address] [place] [address] Khai Walsh MD Prostate cancer ([facility]) 03/20/2025 Orders Only [facility] [place] [address] [place] [address] Khai Walsh MD 03/12/2025 11:45 AM CDT Office Visit [facility] [place] [address] [place] [address] Khai Walsh MD Prostate cancer ([facility]) (Primary Dx) 03/12/2025 Orders Only [facility] [place] [address] [place] [address] Khai Walsh MD 03/11/2025 Telephone [facility] [place] [address] [facility] [place] [address] Khai Walsh MD Diarrhea 03/09/2025 Orders Only [facility] [place] [address] [place] [address] Khai Walsh MD Prostate cancer ([facility]) 03/06/2025 Orders Only [facility] [place] [address] [place] [address] Khai Walsh MD 02/27/2025 Orders Only [facility] [place] [address] [place] [phone] Khai Walsh MD 02/26/2025 Orders Only [facility] [place] [address] Khai Walsh MD Prostate cancer ([facility]) (Primary Dx) 02/24/2025 External Device Data STL ABSTRACTION Provider, Abstract 02/23/2025 Orders Only [facility] [place] [address] [place] [phone] Khai Walsh MD Prostate cancer ([facility]) 02/20/2025 Orders Only [facility] [place] [address] [place] [address] hKai Walsh MD 02/19/2025 9:15 AM CDT Office Visit [facility] [place] [address] [place] [phone] Khai Walsh MD Prostate cancer ([facility]) (Primary Dx); Shortness of breath 02/19/2025 Orders Only [facility] [place] [address] [place] [address] Khai Walsh MD 02/19/2025 Specialty Pharmacy [facility] [address] [place] [address] [place] [address] Latoya Becerra, PHARMACIST Specialty Pharmacy Refill Coordination 02/17/2025 External Device Data STL ABSTRACTION Provider, Abstract 02/09/2025 Orders Only [facility] [place] [address] [place] [address] Khai Walsh MD Prostate cancer ([facility]) 01/29/2025 Abstract [facility] [place] [address] [place] [address] Khai Walsh MD 01/29/2025 Orders Only [facility] [place] [address] [place] [address] Khai Walsh MD Prostate cancer ([facility]) (Primary Dx) 01/28/2025 External Device Data STL ABSTRACTION Provider, Abstract 01/27/2025 Orders Only [facility] [place] [address] [place] [address] Khai Walsh MD Prostate cancer ([facility]) (Primary Dx) 01/20/2025 Refill [facility] [place] [address] [place] [address] Khai Walsh MD 01/19/2025 External Device Data STL ABSTRACTION Provider, Abstract 01/15/2025 Specialty Pharmacy [facility] [address] [place] [phone] Latoya Becerra, PHARMACIST Specialty Pharmacy Refill Coordination from Last 3 Months Family History Medical [...] on file 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 Gender Identity Not on file Sexual Orientation Not on file Last Filed Vital Signs Vital Sign Reading Time Taken Comments Blood Pressure 107/62 04/09/2025 9:21 AM CDT Pulse 84 04/09/2025 9:21 AM CDT Temperature 35.8 C (96.4 F) 04/09/2025 9:21 AM CDT Respiratory Rate 15 04/09/2025 9:21 AM CDT Oxygen Saturation 97% 04/09/2025 9:21 AM CDT Inhaled Oxygen Concentration - - Weight 67.8 kg (149 lb 6.4 oz) 04/09/2025 9:21 A M CDT Height 172.7 cm (5' 8) 12/02/2024 10:06 AM SENIOR LEAD JAVA DEVELOPER Body Mass Index 22.72 12/02/2024 10:06 AM SENIOR LEAD JAVA DEVELOPER Plan of Treatment Upcoming Encounters Date Type Department Care Team (Late st Contact Info) Description 04/27/2025 9:00 AM CDT Office Visit [facility] [place] [address] [facility] [address] [place] [address] Khai Walsh MD [address] [facility] [address] [place] [address] Health Maintenance Due Date Last [...] METABOLIC PANEL Routine 04/09/2025 3:34 PM CDT CBC WITH DIFFERENTIAL Routine 03/26/2025 4:09 PM CDT BASIC METABOLIC PANEL Routine 03/26/2025 3:55 PM CDT COMPREHENSIVE METABOLIC PANEL Routine 03/26/2025 3:18 PM CDT BASIC METABOLIC PANEL Routine 03/19/2025 2:47 PM CDT COMPREHENSIVE METABOLIC PANEL Routine 03/19/2025 2:42 PM CDT BASIC METABOLIC PANEL Routine 03/12/2025 4:17 PM CDT COMPREHENSIVE METABOLIC PANEL Routine 03/12/2025 4:16 PM CDT CBC MIXED CELL DIFFERENTIAL Routine 03/05/2025 11:50 AM CDT BASIC METABOLIC PANEL Routine 03/05/2025 9:18 AM CDT BASIC METABOLIC PANEL Routine 03/05/2025 9:16 AM CDT BASIC METABOLIC PANEL Routine 03/05/2025 9:10 AM CDT BASIC METABOLIC PANEL Routine 03/05/2025 9:10 AM CDT BASIC METABOLIC PANEL Routine 03/05/2025 9:09 AM CDT BASIC METABOLIC PANEL Routine 03/05/2025 8:59 AM CDT COMPREHENSIVE METABOLIC PANEL Routine 03/05/2025 8:38 AM CDT COMPREHENSIVE METABOLIC PANEL Routine 02/26/2025 11:43 AM CDT COMPREHENSIVE METABOLIC PANEL Routine 02/19/2025 2:54 PM CDT BASIC METABOLIC PANEL Routine 02/19/2025 1:48 PM CDT CBC MIXED CELL DIFFERENTIAL Routine 02/19/2025 1:[address] CHEST W CONTRAST Routine 02/19/2025 1 1:32 AM CDT from Last 3 Months Results * BASIC METABOLIC PANEL (04/09/2025 3:44 PM CDT) Only the most recent of11 resultswithin the time period is included. Blood Khai Walsh MD CHEMISTRY ORDERABLES Final Resu lt * COMPREHENSIVE METABOLIC PANEL (04/09/2025 3:34 PM CDT) Only the most recent of7 resultswithin the time period is included. Blood us Khai Walsh MD CHEMISTRY ORDERABLES Final Resu lt * CBC WITH DIFFERENTIAL (03/26/2025 4:09 PM CDT) Blood us Khai Walsh MD HEMATOLOGY ORDERABLES Final Res ult * CBC MIXED CELL DIFFERENTIAL (03/05/2025 11:50 AM CDT) Only the most recent of2 resultswithin the time period is included. Blood us Khai Walsh MD HEMATOLOGY ORDERABLES Final Res ult * CT CHEST W CONTRAST (02/19/2025 11:32 AM CDT) Anatomical Region Laterality Modality Chest Computed Tomogra phy us Khai Walsh MD CT ORDERABLES Final Result from Last 3 Months Insurance MEDICARE PART A AND B [facility] [id number] RX [employer] RX Member Subscriber Plan / Payer (Ef fective 2024-Present) Name:Gume Roberson Relation to Subscriber:Self Name:Gume Roberson Payer ID:Not on file Group ID:[id number] Type:RX Medicare Part D Address: [address] Care Teams Plastics Production Machine Operator Relationship Specialty Start Date End Date Maykel Gramajo MD [address] [place] [phone] PCP - General Family Practice 12/02/24
--- NOTE | 2025-04-14 09:38 | ED_ITS ---
HPI - Wound/Laceration General Chief Complaint: Wound/Laceration Stated Complaint: INFECTED TOE Time Seen by Provider: 04/14/25 09:12 Source: patient Mode of arrival: ambulatory Limitations: no limitations History of Present Illness HPI narrative: This is a 74 year old male that presents to the ER for a foot wound. Reports left little toe wound. Reports this has been ongoing over the last 5 days. Reports he was started on Keflex. He has been on this with little relief. Denies any injuries. Reports history of neuropathy and believes he may have just had the spot rub on his shoes. Related Data Home Medications ?Medication ?Instructions ?Recorded ?Confirmed ?Last Taken ?Type aspirin 81 mg tablet,delayed 81 mg PO DAILY 10/17/19 04/13/25 01/10/25 History release (Josselin Low Dose Aspirin) cholecalciferol (vitamin D3) 125 5,000 unit PO DAILY 10/17/19 03/20/25 01/10/25 History mcg (5,000 unit) capsule mesalamine 1.2 gram tablet,delayed 2.4 gm PO DAILY 10/17/19 03/20/25 01/13/25 History release (Lialda) metoprolol succinate 25 mg 25 mg PO HS 10/17/19 03/20/25 01/13/25 History tablet,extended release 24 hr (Toprol XL) multivitamin 1 tablet PO DAILY 10/17/19 03/20/25 01/10/25 History nitroglycerin 0.4 mg sublingual 0.4 mg sublingual DIRECTED 09/17/23 04/13/25 Unknown History tablet rivaroxaban 10 mg tablet (Xarelto) 10 mg PO HS 06/26/24 04/13/25 01/10/25 History abiraterone 250 mg tablet 1,000 mg PO DAILY 01/01/25 03/20/25 01/14/25 08:00 History prednisone 5 mg tablet 5 mg PO Q12H 01/01/25 03/20/25 01/14/25 09:00 History cephalexin 500 mg capsule mg 04/13/25 Unknown History Allergies Allergy/AdvReac Type Severity Reaction Status Date / Time escitalopram Allergy Unknown Asthma Verified 04/13/25 11:50 sildenafil Allergy Unknown Hypotension Verified 04/13/25 11:50 Penicillins AdvReac Mild Diarrhea Verified 04/13/25 11:50 amoxicillin AdvReac Unknown Diarrhea Verified 04/13/25 11:50 ciprofloxacin AdvReac Unknown Diarrhea Verified 04/13/25 11:50 gemfibrozil AdvReac Unknown myalgias Verified 04/13/25 11:50 lactase AdvReac Unknown Nausea Verified 04/13/25 11:50 Review of Systems 2 Review of Systems: CONSTITUTIONAL: Denies fever SKIN: Reports redness and swelling All systems reviewed & are unremarkable except as noted in HPI and below PMFSH Past Medical History Medical History Allergic rhinitis Deviated nasal septum Anterior epistaxis Squamous cell carcinoma lung Anxiety Fistula Bundle branch block, right COPD (chronic obstructive pulmonary disease) Coronary artery disease Proctitis Ulcerative colitis Surgical History Surgical History Port-A-Cath in place 01/14/25 Placement right internal jugular vein Port-A-Cath using ultrasound and under fluoroscopy per Dr. Arenas History of lobectomy of lung S/P pneumonectomy H/O heart bypass surgery History of colon surgery Family History Family History Father Asthma Mother Acute myocardial infarction Son Carcinoma of colon Other Family history of cardiovascular disease Social History Social History Social History: Caffeine-tea Smoking packs per day: 2 Smoking cigarettes per day: 40.0 Years smoked: 35 Smoking pack-years: 70.00 Smoking status: Former smoker Tobacco type: cigarettes Second hand tobacco smoke exposure: No Smoking end date: 11/12/04 Alcohol intake: never Substance use: never Substance use type: does not use Do You Feel Safe in your Home?: Yes Lack of Transportation: No Lack of Food: Never True Current Housing: I Have Housing Concerned About Future Housing: No Difficulty Paying Gas/Electric Bills: No Difficulty Paying for Meds: No Currently Unemployed: No Education: Bachelor's Degree Difficulty w/ Childcare or Family Care: No Living arrangements: with family Additional living arrangements comments: Spiritual care concerns: No Exam 2 Narrative: GENERAL: Well-appearing, well-nourished, and in no acute distress. HEAD: Normocephalic, atraumatic. EYES: EOMI. CHEST: Clear to auscultation. No respiratory distress. No wheezes rales or rhonchi HEART: Regular rate and rhythm. No murmur heard. Normal peripheral pulses. EXTREMITIES: Normal range of motion. Bilateral lower extremity edema. Normal right DP pulses. Left PT pulse obtained via doppler. Left 5th toe with ulceration present laterally without surrounding erythema or abnormal drainage. Small necrotic lesion on the left 4 toe SKIN: Warm, dry, no rash. NEURO: No focal deficits. Alert and oriented x3. PSYCH: Normal mood and affect Course Course Emergency Course: patient updated on his workup and agrees with plan of care Consultations Consultation #1: Spoke with Dr. Barton's (vascular surgery) nurse, who relayed message to him throughout the call. He will review his imaging which was pushed. They will get patient in to be seen next week Date: 04/14/25 Vital Signs Vital signs: Vital Signs Temperature 97.8 F 04/14/25 09:00 Pulse Rate 97 04/14/25 09:00 Respiratory Rate 20 04/14/25 09:00 Blood Pressure 130/70 04/14/25 09:00 Pulse Oximetry 95 04/14/25 09:00 Oxygen Delivery Room Air 04/14/25 09:00 Temperature 97.8 F 04/14/25 09:00 Pulse Rate 80 04/14/25 13:50 Respiratory Rate 16 04/14/25 13:50 Blood Pressure 132/68 04/14/25 13:50 Pulse Oximetry 98 04/14/25 13:50 Oxygen Delivery Room Air 04/14/25 09:00 MDM - Wound/Laceration MDM Narrative Medical decision making narrative: Patient presents to the ER for wound to the left 5th toe. Present over the last week. Patient with an ulceration to the 5th toe. No concerning surrounding erythema or abnormal drainage. Small necrotic area noted to the left 4th toe. Unable to palpate DP or PT pulses. I am able to doppler PT pulse. Patient has known vascular issues, follows with Dr. Barton, [facility]. He is afebrile and nontoxic appearing. His vitals are stable. Cbc without leukocytosis. Inflammatory markers are elevated. CTA aorta runoff shows extensive vascular disease including ulceration of the infrarenal abdominal aorta, bilateral popliteal artery aneurysms. Occlusion to the left anterior tibial artery. Spoke with Dr. Barton's (vascular surgery) nurse, who relayed message to him throughout the call. He will review his imaging which was pushed. They will get patient in to be seen next week. Patient was instructed to continue local wound care and finish his oral antibiotic. He was given warnings to return to the ER Differential Diagnosis Differential diagnosis: Likely other (wound ulcer, peripheral vascular disease) Lab Data Attestation: I reviewed the patient's lab results. 04/14/25 09:54 04/14/25 09:54 Labs: Lab Results 04/14/25 Range/Units 09:54 WBC 9.5 (4.5-10.0) K/mm3 RBC 3.59 L (4.6-6.20) M/mm3 Hgb 10.3 L (14.0-18.0) g/dL Hct 32.4 L (42.0-52.0) % MCV 90.3 (80-100) fl MCH 28.7 (26-34) pg MCHC 31.8 L (32-36) g/dl RDW 16.9 H (11.5-14.5) % Plt Count 286 (150-375) k/mm3 MPV 10.2 (7.4-10.4) fl Immature Gran % (Auto) 0.8 H (0-0.5) % Neut % (Auto) 70.7 (45.5-73.1) % Lymph % (Auto) 8.0 L (18.3-44.2) % Jenkins % (Auto) 18.2 H (2.6-8.5) % Eos % (Auto) 0.8 (0-4.4) % Baso % (Auto) 1.5 H (0.2-1.2) % Lymph # (Auto) 0.76 L (0.9-3.2) K/mm3 Jenkins # (Auto) 1.7 H (0.1-0.6) K/mm3 Eos # (Auto) 0.1 (0-0.3) K/mm3 Baso # (Auto) 0.1 (0.0-0.1) K/mm3 Abs Immat Gran (auto) 0.08 H (0.00-0.031) K/mm3 Absolute Neuts (auto) 6.7 (1.3-6.7) K/mm3 Absolute Nucleated RBC 0.000 (0.0-0.012) K/mm3 Nucleated RBC % 0.0 (0.0-0.2) % ESR 104 H (0-20) mm/hr Sodium 135 L (137-145) mmol/L Potassium 3.2 L (3.4-5.0) mmol/L Chloride 101 (98-107) mmol/L Carbon Dioxide 30 (22-30) mmol/L Anion Gap 4 (4-12) mmol/L BUN 9 (9-20) mg/dL Creatinine 0.58 L (0.7-1.3) mg/dL Estim Creat Clear Calc 92 ml/min Estimated GFR > 60 (59 - ) Glucose 101 (65-110) mg/dL Calcium 8.2 L (8.4-10.2) mg/dL Total Bilirubin 1.3 (0.2-1.3) mg/dL AST 36 (17-59) U/L ALT 17 (6-50) U/L Alkaline Phosphatase 109 (38-126) U/L C-Reactive Protein 14.8 H (<1.0) mg/dL Total Protein 5.3 L (6.3-8.2) g/dL Albumin 2.7 L (3.5-5.1) g/dL Imaging Data Radiologist's impression: ITS Impressions Aorta w/Runoff CTA 04/14/25 11:31 IMPRESSION: 1. Extensive atherosclerotic disease in the lower chest, abdomen, pelvis and bilateral lower limbs with penetrating atherosclerotic ulcer along the infrarenal abdominal aorta. 2. Large bilateral thrombosed [id number] popliteal artery aneurysms, stented on the right where it measures up to 4.5 x 3.2 cm and without stenting on the left where it measures up to 5.3 x 5.0 cm with more distal reconstitution by collaterals. 3. Arteries at the bilateral calves are atretic with short segmental occlusion of the left anterior tibial artery and additional significant focal stenoses at the proximal calves as detailed above with potentially additional significant stenosis more distally along the vessels which are too small for quantitative assessment. 4. Cholelithiasis. 5. Multiple sclerotic bone lesions consistent with known metastatic prostate cancer and chronic pathologic T10 compression fracture. Critical Care Time Critical Care Time Critical Care Time: No Discharge Plan Discharge Clinical Impression: Peripheral vascular disease, Hypokalemia Ulcer of toe of left foot Qualifiers: Non-pressure ulcer stage: limited to breakdown of skin Qualified Code(s): L 97.521 - Non-pressure chronic ulcer of other part of left foot limited to breakdown of skin Patient Disposition: Home Condition: Stable Instructions: Antibiotic Form, Hypokalemia (ED), Peripheral Vascular Disease (ED) Additional Instructions: Return to the ER if you experience fever, redness and swelling of your extremity, numbness, severe pain, you foot feels cold, or any other symptoms that are concerning to you Finished oral antibiotics as prescribed. Keep the area clean with mild soap and water and apply antibiotic ointment daily. Follow up with your primary care doctor, they will be able to see the results from the culture we did today to see if your antibiotic should be changed Follow up with your vascular doctor, bring your CD to your appointment. If you do not hear from them by end of day tomorrow, call to scheduled your appointment, they said they would like to see you next week Patient Language: Indonesian Prescriptions: No Action cephalexin 500 mg capsule doxycycline hyclate 100 mg capsule 100 mg PO BID 7 Days Qty: 14 0RF aspirin [Josselin Low Dose Aspirin] 81 mg tablet,delayed release (DR/EC) 81 mg PO DAILY Patient Comments: on hold due to past nosebleeds. mesalamine [Lialda] 1.2 gram tablet,delayed release (DR/EC) 2.4 gm PO DAILY multivitamin Tablet 1 tablet PO DAILY metoprolol succinate [Toprol XL] 25 mg tablet extended release 24 hr 25 mg PO HS cholecalciferol (vitamin D3) 5,000 unit capsule 5,000 unit PO DAILY nitroglycerin 0.4 mg tablet, sublingual 0.4 mg sublingual DIRECTED prednisone 5 mg tablet 5 mg PO Q12H abiraterone 250 mg tablet 1,000 mg PO DAILY Patient Comments: .. Rx Instructions: must be taken on empty stomach, at least 1 hr before or 2 hrs after a meal/food Xarelto 10 mg tablet 10 mg PO HS Patient Comments: HOld [address] Arenas. Remains on hold. triamcinolone acetonide 0.1 % cream 1 applic TOPICAL BID Qty: 80 1RF tamsulosin 0.4 mg capsule 0.4 mg PO QHS Qty: 90 1RF Patient Comments: has not been taking fenofibrate 160 mg tablet See Rx Instructions .ROUTE .COMPLEX Qty: 90 3RF Dose Instruction: TAKE 1 TABLET BY MOUTH DAILY Rx Instructions: TAKE 1 TABLET BY MOUTH DAILY alprazolam [Xanax] 0.25 mg tablet 0.25 mg PO TID PRN (Reason: anxiety) Qty: 90 1RF Patient Comments: . simvastatin [Zocor] 20 mg tablet 20 mg PO HS Qty: 90 1RF Patient Comments: . pregabalin [Lyrica] 100 mg capsule 100 mg PO Q12H 90 Days Qty: 180 1RF Patient Comments: Nightly only unless lots pain Follow-up/Referrals: Maykel Gramajo MD [Primary Care Provider] -
--- OUTSIDE RECORDS SUMMARY | 2025-04-14 09:48 | XMS_ITS | Clinical Summary ---
Author Organization [facility] [place] Address [address] [facility] [address] Care Team Providers Care Lard Mixer Name Role Phone Maykel Gramajo MD Primary Care Provider [phone] Source Comments [facility],non-owned Affiliates and Associated Physician Practices is amultiple site organization consisting of ambulatory clinics and hospital sitesin [place] and [place]. This disclosure is being madepursuant to the Care Everywhere program and may not contain all information available regarding this patient. Last updated 18.[facility] [place] Allergies Active Allergy Reactions Criticality Noted Date [...] (01/24/2021): Added automatically from request for surgery [id number] Chronic rhinitis 08/21/2019 History of epistaxis 08/21/2019 Aneurysm of popliteal artery 08/19/2019 Overview (01/24/2021): Added automatically from request for surgery [id number] Added automatically from request for surgery [id number] Last Assessment & Plan: - S/p status post self-expanding covered stent (Havana Viabahn 9 x 150 mm) placement to [...] the future Coronary artery disease invo lving [place] coronary artery of [place] heart without angina pectoris 03/28/2018 Overview (01/24/2021): [...] on file 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 Gender Identity Not on file Sexual [...] this topic Medical Devices Implanted Type Area Criminal Justice Professor Device Identifier Shelf Expiration Date Model / Serial / Lot Lens Iol 0 D +22.5 [employer] Mod L Acrsf Iq - [id number] Implanted:Qty: 1 on 02/23/2021 by Hernan Hansen MD at [facility] Right: Eye [employer] 06/21/2023 [id number] / [id number] / Lens Iol 0 D +28.0 Ovidio Mod L Acrsf Iq - [id number] Implanted:Qty: 1 on 05/18/2021 by Hernan Hansen MD at [facility] Left: Eye [employer] 11/22/2023 [id number] / [id number] / Insurance MEDICARE [facility] MEDICARE Care Teams Lard Mixer Relationship Specialty Start Date End Date Maykel Gramajo MD [address] [place] [phone] PCP - General 07/28/20
--- OUTSIDE RECORDS SUMMARY | 2025-04-14 09:48 | XMS_ITS | Encounter Summary ---
Author Organization [facility] Address [address] [place] [address] Care Team Providers Care Shipping Clerk Name Role Phone Maykel Gramajo MD Primary Care Provider [phone] Encounter Details Date Type Department Care Team (Late st Contact Info) Description 08/19/2018 Lab Requisition [facility] [address] [place] [id number] Unlisted, Ordering Provider, Social History Tobacco Use Types Packs/Day Years Used Date Smoking Tobacco: Never Assessed Sex and Gender Information Value Date Recorded Sex Assigned at Not on file Legal Sex Male 6:29 AM 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 Treatment Target Values: Normal : < 5.7% Pre-diabetes: 5.7-6.4% Diabetes: Equal to or greater than 6.5% Reference: [place] Diabetes Association Standards of Care in Diabetes -2014 In patients 70 years and older consider HbA1c target range of 7.0-7.5% Reference: Diabetes Mellitus in Older People: Position Statement on behalf of the International Association of Gerontology and Geriatrics (IAGG), the Diabetes Working Green Party for Older People (EDWPOP), and the International Task Force of Experts in Diabetes. Pj Brandon, et al. J [employer] Medical Directors Association. 2012 Test results diagnostic [...] LAB - CHEMISTRY OR DERABLES Final Result [address] [phone] * (ABNORMAL) LIPID PROFILE (08/22/2018 7:20 AM CDT) [facility] Signature Cholesterol Total 93 <200 mg/dL 08/22/2018 10:49 AM CDT [facility] HDL 32(L) >40 mg/dL 08/22/2018 10:49 AM [facility] Comment: ATP III Classification of HDL [...] LAB - CHEMISTRY OR DERABLES Final Result [address] [phone] * GLUCOSE VITALITY (08/22/2018 7:20 AM CDT) Glucose 101 70 - 115 mg/dL 08/22/2018 10:23 AM CDT [facility] Blood BLOOD SPECIMEN / Unknown Lab Venipuncture / Unknown 08/22/2018 7:20 AM CDT 08/22/2018 9:54 AM CDT us Ordering Provider Unlisted MD LAB - CHEMISTRY OR DERABLES Final Result Performing Organization Address City/[facility]/ZIP Co de Phone Number [address] [phone] documented in this encounter Visit Diagnoses Not on filedocumented in this encounter Care Teams Shipping Clerk Relationship Specialty Start Date End Date Maykel Gramajo MD [address] [place] [address] PCP - General 07/28/20 documented as of this encounter
--- OUTSIDE RECORDS SUMMARY | 2025-04-14 09:48 | XMS_ITS | Clinical Summary ---
Author Organization [facility] Address [address] [place] [address] Care Team Providers Care Mortgage Loan Processing Clerk Name Role Phone Maykel Gramajo MD Primary Care Provider [phone] Hernan Hernandez MD Unavailable [phone] Maykel Ramires MD Unavailable [phone] Maykel Villalpando MD Unavailable [phone] Allergies Active Allergy Reactions Criticality Noted Date [...] to consider that. PAD (peripheral artery disease) ([facility]) 2019 Overview (05/25/2020): Added automatically from request for surgery [id number] Popliteal artery aneurysm, bilateral 12/09/2019 Overview (12/09/2019): Added automatically from request for surgery [id number] Assessment & Plan (06/11/2020 5:49 PM CDT): - S/p status post self-expanding covered stent ([place] Viabahn 9 x 150 mm) placement to [...] (08/19/2019): Added automatically from request for surgery [id number] Coronary artery disease of n ative artery of [place] heart with stable angina pectoris ([facility]) 03/28/2018 Assessment & Plan (03/17/2024 [...] false-positive. Assessment & Plan (10/18/2020 5:[address] CRIER): No symptoms of myocardial ischemia, albeit with [...] made. Assessment & Plan (10/18/2020 5:[address] CRIER): He is on chronic lipid-lowering therapy. No [...] Department Care Team Description 01/12/2025 11:[address] CRIER Office Visit [facility] Gastroenterology [address] [facility] [address]th [place] [address] [place] [address] Mendel Sung MD PAD (peripheral artery disease) (CMS/HCC) (HCC) (Primary Dx); Coronary artery disease of [place] artery of [place] heart with stable angina pectoris (CMS/HCC) (HCC); [...] 2020 VASCULAR SURGERY 12/31/2019 Self-expanding covered stent ([place] Viabahn 9 x 100 mm) placement to exclude right SFA/popliteal aneurysm VASCULAR SURGERY 09/03/2019 . Right lower extremity angiogram 2. Self-expanding covered stent ([place] Viabahn 9 x 150 mm) placement to exclude right SFA/popliteal aneurysm LOBECTOMY 03/12/2024 - 04/11/2024 right middle lobe Medical History Medical History Date Comments Allergic rhinitis Anxiety Peripheral vascular disease hx o f stents right leg Sinusitis DVT of lower extremity (deep venous thrombosis) ([facility]) 2004 S/pm CABG x5v Other complications of anest hesia, sequela 07/2005 Had postoperative respirator y issues after CABG x5 necessitating prolonged intubation Coronary artery disease Hyperlipidemia Diverticulitis 2006 Colovesical fist william requiring surgery Cataract Hypertension Clotting disorder Neuromuscular disorder (HCC) left foot Aortic stenosis History of blood transfusion 07/2005 Vision loss of left eye COPD (chronic obstructive pu lmonary disease) ([facility]) Non-small cell cancer of mid [...] on file Legal Sex Male 7:[address] C[facility] Gender Identity Not on file Sexual Orientation Not on file Obstetrics History Last Filed Vital Signs Vital Sign Reading Time Taken Comments Blood Pressure 145/68 01/12/2025 10:[address] [facility] Pulse 66 01/12/2025 10:[address] [facility] Temperature 36.5 C (97.7 F) 01/12/2025 10:[address] [facility] Respiratory Rate 18 10/16/2024 9:[address] [facility] Oxygen Saturation 95% 10/16/2024 9:[address] [facility] Inhaled Oxygen Concentration - - Weight 79.4 kg (175 lb) 01/12/2025 10:[address] [facility] Height 175.3 cm (5' 9) 01/12/2025 10:[address] [facility] Body Mass Index 25.84 01/12/2025 10:[address] C[facility] Plan of Treatment Health Maintenance Due Date [...] 10/16/2024, 09/22/2013 Medical Devices Implanted Type Area Paramedic Instructor Device Identifier Shelf Expiration Date Model / Serial / Lot Wl [employer] [id number] Viabahn 9mm 9fr 15cm 120cm Iliac Artery Stent Endoprosthesis - [id number] - [id number] Implanted:Qty: 1 on 09/03/2019 by Hernan Hernandez MD at [facility] Stent Wl [employer] [id number] 07/22/2021 [id number] / [id number] / Description:Distal SFA Popli teal Artery Wl [employer] [id number] Viabahn 9mm 9fr 10cm 120cm Delivery System Tip To Hub Deployment - [id number] - [id number] Implanted:Qty: 1 on 12/31/2019 by Hernan Hernandez MD at [facility] Stent Right: Leg Wl [employer] [id number] 06/10/2022 [id number] 2A / [id number] / [employer] Device Vascular Closure Femoral Artery Bioabsorbable Dual Method Vascade 6-7fr Collagen [id number] - S0 - [id number] Implanted:Qty: 1 on 07/25/2024 by Sigifredo Das MD at [facility] Vascular Closure Device [employer] 04/21/2026 [id number] -[id number] / 0 / [id number] Cordis Mynxgrip 5fr Balloon Catheter Integrate Sealant Lock Latex Free [id number] - S0 - [id number] Implanted:Qty: 1 on 07/25/2024 by Sigifredo aDs MD at [facility] Vascular Closure Device Cordis 05/05/2026 [id number] / [id number] / [id number] Procedures Procedure Name Priority Date/Time Associated Diagnosis Comments COLONOSCOPY 10/16/2024 8:[address] [facility] CTA ABDOMINAL AORTA AND BILATERAL ILIOFEMORAL RUNOFF Schedule Routine, Read Routine (OP Routine) 01/15/2024 10:[address] [facility] Popliteal artery aneurysm from Last 3 Months or Most Recently Relevant to Health Maintenance Results * Colonoscopy (10/16/2024 8:[address] CRIER) Anatomical Region Laterality Modality Other Narrative Procedure Note Mendel Sung MD - 10/16/2024 8:40 AM CST [facility] Patient Name: Gume Roberson Procedure Date: 10/16/2024 8:40 AM Date of : 1950 Admit Type: Outpatient Age: 74 Gender: Male Attending MD: Mendel Sung M.D. Room: [facility] ENDOSCOPY ROOM 8 Note Status: Finalized Procedure: [...] The scope was passed under direct vision.The [id number] endoscope was introduced through the anus and advanced to the cecum, identified by appendiceal orifice and ileocecal valve. The colonoscopy was performed without difficulty. The patient tolerated the procedure well. The qualityof the bowel preparation was evaluated using the BBPS ([place] Bowel Preparation Scale) with scores of:Right Colon [...] business hours - Please call theNurse Coordinator: [phone]. After hours, evening, nights, weekends and holidays- Please call the hospital well drill operator at and ask for the GI fellow administrative receptionist. Electronically signed by Mendel Sung MD Mendel Sung M.D. 10/16/2024 9:23:20 AM . Number of Addenda: 0 Note Initiated On: 10/16/2024 8:40 AM us Mendel Sung MD ENDOSCOPY PROCEDURES Final Result * CTA Abdominal Aorta And Bilateral Iliofemoral Runoff (01/15/2024 10:[address] [facility]) Anatomical Region Laterality Modality Body Bilateral Computed Tomogra phy 01/15/2024 11:[address] [facility] Addenda Addendum by Jason Mahan MD on 03/03/2024 3:45 PM CDT Follow up Cardiothoracic Surgery consult and PET/CT done on 02/07/24. Margarita CHAVEZ, RN. Edited by: Margarita Mccabe Electronically signed by: Jason Mahan M.D. Impressions 01/15/2024 1:[address] [facility] 1. Spiculated soft tissue nodule in the [...] Jason Mahan M.D. Narrative 01/15/2024 1:[address] [facility] EXAMINATION: CT ANGIOGRAPHY OF THE ABDOMEN, PELVIS, [...] Recently Relevant to Health Maintenance Insurance MEDICARE [facility] AARP Advance Directives For more information, please contact: [phone] Documents on File Type Date Recorded Patient Tool Trouble Shooter Expl anation Power of Clinical Therapist 07/25/2024 6:24 AM * Full Code [...] 4:37 PM 09/04/2019 7:06 PM Care Teams Mortgage Loan Processing Clerk Relationship Specialty Start Date End Date Maykel Gramajo MD PCP - General 02/09/17 Hernan Hernandez MD Surgeon Vascular Surgery 09/04/19 Maykel Ramires MD [address] [facility] [address] [place] [address] Referring Physician Cardiology 07/25/24 Maykel Villalpando MD [address] [facility] [address] [place] [address] Consulting Physician Cardiothoracic Surgery 07/25/24
--- OUTSIDE RECORDS SUMMARY | 2025-04-14 09:48 | XMS_ITS | Encounter Summary ---
Author Organization [facility] Address [address] [place] [address] Care Team Providers Care Audio Video Tech Name Role Phone Maykel Gramajo MD Primary Care Provider [phone] Encounter Details Date Type Department Care Team (Late Contact Info) Description 04/09/2025 Orders Only [facility] Oncology and Hematology [address] [place] [address] Khai Walsh MD [facility] [employer] [address] [place] [phone] Social History Tobacco Use Types Packs/Day Years Used Date Smoking Tobacco: Former Cigarettes 2 35 Q uit: 12/02/2004 Smokeless Tobacco: Never Alcohol Use Standard Drinks/Week Comments Never 0 (1 standard drink = 0.6 oz pur e alcohol) Sex and Gender Information Value Date Recorded Sex Assigned at Not on file Legal Sex Male 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 Gender Identity Not on file Sexual Orientation Not on file documented as of this encounter Plan of Treatment Upcoming Encounters Date Type Department Care Team (Late st Contact Info) Description 04/27/2025 9:00 AM CDT Office Visit [facility] Oncology and Hematology - [address] [place] [address] Khai Walsh MD [address] [employer] [address] [place] [address] documented as of this encounter Procedures [...] on filedocumented in this encounter Care Teams Audio Video Tech Relationship Specialty Start Date End Date Maykel Gramajo MD [address] [place] [phone] PCP - General Family Practice 12/02/24 documented as of this encounter
--- OUTSIDE RECORDS SUMMARY | 2025-04-14 09:48 | XMS_ITS ---
Author Organization [facility] Address [address] [place] [address] Care Team Providers Care Environmental Health Specialist Name Role Phone Maykel Gramajo MD Primary Care Provider [phone] Hernan Hernandez MD Unavailable [phone] Maykel Ramires MD Unavailable [phone] Maykel Villalpando MD Unavailable [phone] Active Problems Patient Care Coordination No te [...] to consider that. PAD (peripheral artery disease) ([facility]) 2019 Overview (05/25/2020): Added automatically from request for surgery [id number] Popliteal artery aneurysm, bilateral 12/09/2019 Overview (12/09/2019): Added automatically from request for surgery [id number] Assessment & Plan (06/11/2020 5:49 PM CDT): - S/p status post self-expanding covered stent ([place] Viabahn 9 x 150 mm) placement to [...] (08/19/2019): Added automatically from request for surgery [id number] Coronary artery disease of n ative artery of [place] heart with stable angina pectoris ([facility]) 03/28/2018 Assessment & Plan (03/17/2024 [...] false-positive. Assessment & Plan (10/18/2020 5:19 PM DRYING AND WINDING SUPERVISOR): No symptoms of myocardial ischemia, albeit with [...] made. Assessment & Plan (10/18/2020 5:19 PM DRYING AND WINDING SUPERVISOR): He is on chronic lipid-lowering therapy. No [...]
--- OUTSIDE RECORDS SUMMARY | 2025-04-14 09:48 | XMS_ITS | Referral Summary ---
Author Organization [facility] Address [address] [place] [address] Care Team Providers Care Medical Malpractice Paralegal Name Role Phone Maykel Gramajo MD Primary Care Provider [phone] Hernan Hernandez MD Unavailable [phone] Maykel Ramires MD Unavailable [phone] Maykel Villalpando MD Unavailable Encounters Date Type Department Care Team Description 01/12/2025 11:15 AM COLLEGE ATHLETE Office Visit [facility] Gastroenterology [address] [facility] [address] [place] [address] [place] [address] Mendel Sung MD PAD (peripheral artery disease) (CMS/HCC) (HCC) (Primary Dx); Coronary artery disease of [place] artery of [place] heart with stable angina pectoris (CMS/HCC) (HCC); [...] to consider that. PAD (peripheral artery disease) ([facility]) 2019 Overview (05/25/2020): Added automatically from request for surgery [id number] Popliteal artery aneurysm, bilateral 12/09/2019 Overview (12/09/2019): Added automatically from request for surgery [id number] Assessment & Plan (06/11/2020 5:49 PM CDT): - S/p status post self-expanding covered stent ([place] Viabahn 9 x 150 mm) placement to [...] (08/19/2019): Added automatically from request for surgery [id number] Coronary artery disease of n ative artery of [place] heart with stable angina pectoris ([facility]) 03/28/2018 Assessment & Plan (03/17/2024 [...] false-positive. Assessment & Plan (10/18/2020 5:19 PM COLLEGE ATHLETE): No symptoms of myocardial ischemia, albeit with [...] made. Assessment & Plan (10/18/2020 5:19 PM COLLEGE ATHLETE): He is on chronic lipid-lowering therapy. No [...] on file Legal Sex Male 7:01 PM COLLEGE ATHLETE Gender Identity Not on file Sexual Orientation Not on file Last Filed Vital Signs Vital Sign Reading Time Taken Comments Blood Pressure 145/68 01/12/2025 10:40 AM COLLEGE ATHLETE Pulse 66 01/12/2025 10:40 AM COLLEGE ATHLETE Temperature 36.5 C (97.7 F) 01/12/2025 10:40 AM COLLEGE ATHLETE Respiratory Rate 18 10/16/2024 9:51 AM COLLEGE ATHLETE Oxygen Saturation 95% 10/16/2024 9:51 AM COLLEGE ATHLETE Inhaled Oxygen Concentration - - Weight 79.4 kg (175 lb) 01/12/2025 10:40 AM COLLEGE ATHLETE Height 175.3 cm (5' 9) 01/12/2025 10:40 AM COLLEGE ATHLETE Body Mass Index 25.84 01/12/2025 10:40 AM COLLEGE ATHLETE Plan of Treatment Not on file Medical Devices Implanted Type Area Lock And Dam Operator Device Identifier Shelf Expiration Date Model / Serial / Lot Wl [place] [employer] [id number] Viabahn 9mm 9fr 15cm 120cm Iliac Artery Stent Endoprosthesis - [id number] - [id number] Implanted:Qty: 1 on 09/03/2019 by Hernan Hernandez MD at [facility] Stent Wl [place] [employer] [id number] 07/22/2021 [id number] 2A / [id number] / Description:Distal SFA Popli teal Artery Wl [employer] [employer] [id number] Viabahn 9mm 9fr 10cm 120cm Delivery System Tip To Hub Deployment - [id number] - [id number] Implanted:Qty: 1 on 12/31/2019 by Hernan Hernandez MD at [facility] Stent Right: Leg Wl [place] [employer] [id number] 06/10/2022 [id number] 2A / [id number] / [employer] Device Vascular Closure Femoral Artery Bioabsorbable Dual Method Vascade 6-7fr Collagen [id number] - S0 - [id number] Implanted:Qty: 1 on 07/25/2024 by Sigifredo Das MD at [facility] Vascular Closure Device [employer] 04/21/2026 [id number] -[id number] / 0 / [id number] Cordis Mynxgrip 5fr Balloon Catheter Integrate Sealant Lock Latex Free [id number] - S0 - [id number] Implanted:Qty: 1 on 07/25/2024 by Sigifredo Das MD at [facility] Vascular Closure Device Cordis 05/05/2026 [id number] / [id number] / [id number] Procedures Procedure Name Priority Date/Time Associated Diagnosis Comments COLONOSCOPY 10/16/2024 8:40 AM COLLEGE ATHLETE CTA ABDOMINAL AORTA AND BILATERAL ILIOFEMORAL RUNOFF Schedule Routine, Read Routine (OP Routine) 01/15/2024 10:28 AM COLLEGE ATHLETE Popliteal artery aneurysm from Last 3 Months or Most Recently Relevant to Health Maintenance Results * Colonoscopy (10/16/2024 8:40 AM COLLEGE ATHLETE) Anatomical Region Laterality Modality Other Narrative Procedure Note Mendel Sung MD - 10/16/2024 8:40 AM CST [facility] Patient Name: Gume Roberson Procedure Date: 10/16/2024 8:40 AM Date of : 1950 Admit Type: Outpatient Age: 74 Gender: Male Attending MD: Mendel Sung M.D. Room: [facility] ENDOSCOPY ROOM 8 Note Status: Finalized Procedure: [...] The scope was passed under direct vision.The [id number] endoscope was introduced through the anus and advanced to the cecum, identified by appendiceal orifice and ileocecal valve. The colonoscopy was performed without difficulty. The patient tolerated the procedure well. The qualityof the bowel preparation was evaluated using the BBPS ([place] Bowel Preparation Scale) with scores of:Right Colon [...] During normal business hours - Please call [facility] Coordinator: [phone]. After hours, evening, nights, weekends and holidays- Please call the hospital plating machine operator at and ask for the GI fellow education managers. Electronically signed by Mendel Sung MD Mendel Sung M.D. 10/16/2024 9:23:20 AM . Number of Addenda: 0 Note Initiated On: 10/16/2024 8:40 AM us Mendel Sung MD ENDOSCOPY PROCEDURES Final Result * CTA Abdominal Aorta And Bilateral Iliofemoral Runoff (01/15/2024 10:28 AM COLLEGE ATHLETE) Anatomical Region Laterality Modality Body Bilateral Computed Tomogra phy 01/15/2024 11:5 2 AM COLLEGE ATHLETE Addenda Addendum by Jason Mahan MD on 03/03/2024 3:45 PM CDT Follow up Cardiothoracic Surgery consult and PET/CT done on 02/07/24. Margarita CHAVEZ, RN. Edited by: Margarita Mccabe Electronically signed by: Jason Mahan M.D. Impressions 01/15/2024 1:08 PM COLLEGE ATHLETE 1. Spiculated soft tissue nodule in the [...] Jason Mahan M.D. Narrative 01/15/2024 1:08 PM COLLEGE ATHLETE EXAMINATION: CT ANGIOGRAPHY OF THE ABDOMEN, PELVIS, [...] Recently Relevant to Health Maintenance Insurance MEDICARE [facility] Address: [facility] [address] [place] [address] [facility] MEDICARE [facility] MEDICARE [facility] Advance Directives For more information, please contact: [phone] Documents on File Type Date Recorded Patient Library Media Assistant Expl anation Power of Tubular Stock Glass Bulb Machine Former 07/25/2024 6:24 AM * Full Code (Latest [...] 4:37 PM 09/04/2019 7:06 PM Care Teams Medical Malpractice Paralegal Relationship Specialty Start Date End Date Maykel Gramajo MD PCP - General 02/09/17 Hernan Hernandez MD Surgeon Vascular Surgery 09/04/19 Maykel Ramires MD [address] [place] [address] Referring Physician Cardiology 07/25/24 Maykel Villalpando MD [address] [place] [address] Consulting Physician Cardiothoracic Surgery 07/25/24
--- OUTSIDE RECORDS SUMMARY | 2025-04-14 09:48 | XMS_ITS | Clinical Summary ---
Author Organization [facility] Uriel Mar Address [address] [place] [address] Care Team Providers Care Joinery Machinist Name Role Phone Maykel Gramajo MD Primary Care Provider [phone] Allergies Active Allergy Reactions Criticality Noted Date [...] Description 04/09/2025 9:15 AM CDT Office Visit [facility] Hematology - [place] [address] [place] [address] Khai Walsh MD Prostate cancer (CMS/HCC) (Primary Dx); Infection of nail bed of toe of left foot 04/09/2025 Orders Only [facility] Hematology - [place] [address] [place] [address] Khai Walsh MD 04/07/2025 External Device Data STL ABSTRACTION Provider, Abstract 04/06/2025 Orders Only [facility] - [place] [address] [place] [address] Khai Walsh MD Prostate cancer ([facility]) 04/02/2025 External Device Data STL ABSTRACTION Provider, Abstract 04/01/2025 External Device Data STL ABSTRACTION Provider, Abstract 03/31/2025 External Device Data STL ABSTRACTION Provider, Abstract 03/27/2025 Orders Only [facility] Oncology and Hematology - [place] [address] [place] [address] Khai Walsh MD 03/26/2025 Orders Only [facility] Oncology and Hematology - [place] [address] [place] [address] Khai Walsh MD 03/24/2025 Specialty Pharmacy [facility] [address] [place] [address] [place] [address] Latoya Becerra, PHARMACIST Specialty Pharmacy Refill Coordination 03/23/2025 Orders Only [facility] Oncology [facility] Hematology - [place] [address] [place] [address] Khai Walsh MD Prostate cancer ([facility]) 03/20/2025 Orders Only [facility] Oncology and Hematology - [place] [address] [place] [address] Khai Walsh MD 03/12/2025 11:45 AM CDT Office Visit [facility] On[facility] and Hematology - [place] [address] [place] [address] Khai Walsh MD Prostate cancer ([facility]) (Primary Dx) 03/12/2025 Orders Only [facility] - [place] [address] [place] [address] Khai Walsh MD 03/11/2025 Telephone [facility] Hematology - [place] [address] [facility] [place] [address] Khai Walsh MD Diarrhea 03/09/2025 Orders Only [facility]ematology - [place] [address] [place] [address] Khai Walsh MD Prostate cancer ([facility]) 03/06/2025 Orders Only [facility] Oncology [facility] Hematology - [place] [address] [place] [address] Khai Walsh MD 02/27/2025 Orders Only [facility] Oncology [facility] Hematology - [place] [address] [place] [phone] Khai Walsh MD 02/26/2025 Orders Only [facility] Oncology and Hematology - [place] [address] Khai Walsh MD Prostate cancer ([facility]) (Primary Dx) 02/24/2025 External Device Data STL ABSTRACTION Provider, Abstract 02/23/2025 Orders Only [facility] Oncology and Hematology - [place] [address] [place] [phone] Khai Walsh MD Prostate cancer ([facility]) 02/20/2025 Orders Only [facility] Oncology and Hematology - [place] [address] [place] [address] Khai Walsh MD 02/19/2025 9:15 AM CDT Office Visit [facility] Oncology and Hematology - [place] [address] [place] [address] Khai Walsh MD Prostate cancer ([facility]) (Primary Dx); Shortness of breath 02/19/2025 Orders Only [facility] Oncology and Hematology - [place] [address] [place] [address] Khai Walsh MD 02/19/2025 Specialty Pharmacy [facility] [address] [place] [address] [place] [address] Latoya Becerra, PHARMACIST Specialty Pharmacy Refill Coordination 02/17/2025 External Device Data STL ABSTRACTION Provider, Abstract 02/09/2025 Orders Only [facility] Oncology [facility] Hematology - [place] [address] [place] [address] Khai Walsh MD Prostate cancer ([facility]) 01/29/2025 Abstract [facility] Hematology - [place] [address] [place] [address] Khai Walsh MD 01/29/2025 Orders Only [facility] Oncology and Hematology - [place] [address] [place] [address] Khai Walsh MD Prostate cancer ([facility]) (Primary Dx) 01/28/2025 External Device Data STL ABSTRACTION Provider, Abstract 01/27/2025 Orders Only [facility] Oncology and Hematology - [place] [address] [place] [address] Khai Walsh MD Prostate cancer ([facility]) (Primary Dx) 01/20/2025 Refill [facility] Oncology and Hematology - [place] [address] [place] [address] Khai Walsh MD 01/19/2025 External Device Data STL ABSTRACTION Provider, Abstract 01/15/2025 Specialty Pharmacy [facility] [address] [place] [phone] Latoya Becerra, PHARMACIST Specialty Pharmacy Refill Coordination [...] on file 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 Gender Identity Not on file Sexual Orientation [...] 172.7 cm (5' 8) 12/02/2024 10:06 AM NURSE ESTHETICIAN Body Mass Index 22.72 12/02/2024 10:06 AM NURSE ESTHETICIAN Plan of Treatment Upcoming Encounters Date Type Department Care Team (Late st Contact Info) Description 04/27/2025 9:00 AM CDT Office Visit [facility] Oncology and Hematology - [place] [address] [facility] [address] [place] [address] Khai Walsh MD [address] [facility] [address] [place] [address] Health Maintenance Due Date Last [...] Insurance MEDICARE PART A AND B [facility] [id number] RX [employer] RX Member Subscriber Plan / Payer (Ef fective 2024-Present) Name:Gume Roberson Relation to Subscriber:Self Name:Gume Roberson Payer ID:Not on file Group ID:[id number] Type:RX Medicare Part D Address: [address] Care Teams Joinery Machinist Relationship Specialty Start Date End Date Maykel Gramajo MD [address] [place] [phone] PCP - General Family Practice 12/02/24
--- OUTSIDE RECORDS SUMMARY | 2025-04-14 09:48 | XMS_ITS | Continuity of Care Document ---
Author Organization [facility] Address [address] [place] [address] Phone Care Team Providers Care Various Exceptionalities Teacher Name Role Phone Denis Cash Unavailable Unavailable Procedures Procedure Date Eye Exam & Treatment Refraction Advance Directives Directive Yes / No Effective Date File Name No Information Encounters Encounter Description Practice Location Reason(s) For Visit Diagnoses Date Provider Providers Copied on Encounter [facility], [address], [place], [place], [id number], [place] tel:[phone] [facility] No Information 0 Shailesh Barrios. [address] [facility] [address], [address], [place]. tel:[phone] Family History Family Member Type Diagnosis Age At Onset No Information Payers Payer name Insurance type Covered green party ID Authoriza titerell(s) [facility] Commercial CI [id number] Social History Type Description Quantity Date Captured [...]
[2025-04-14 10:02] LABS: Basophils Absolute Auto 0.1 K/mm3 (0.0-0.1); Basophils Percent Auto 1.5 % (0.2-1.2); Eosinophils Absolute Auto 0.1 K/mm3 (0-0.3); Eosinophils Percent Auto 0.8 % (0-4.4); Hematocrit 32.4 % (42.0-52.0); Hemoglobin 10.3 g/dL (14.0-18.0); Immature Granulocyte Absolute 0.08 K/mm3 (0.00-0.031); Immature Granulocyte Percent A 0.8 % (0-0.5); Lymphocytes Absolute Auto 0.76 K/mm3 (0.9-3.2); Mean Corpuscular HGB Conc 31.8 g/dl (32-36); Mean Corpuscular Hemoglobin 28.7 pg (26-34); Mean Corpuscular Volume 90.3 fl (80-100); Mean Platelet Volume 10.2 fl (7.4-10.4); Monocytes Absolute Auto 1.7 K/mm3 (0.1-0.6); Monocytes Percent Auto 18.2 % (2.6-8.5); Neutrophils Absolute Auto 6.7 K/mm3 (1.3-6.7); Neutrophils Percent Auto 70.7 % (45.5-73.1); Platelet Count Result 286 k/mm3 (150-375); Red Blood Count 3.59 M/mm3 (4.6-6.20); Red Cell Distribution Width 16.9 % (11.5-14.5); White Blood Count 9.5 K/mm3 (4.5-10.0)
[2025-04-14 10:33] LABS: Alanine Aminotransferase 17 U/L (6-50); Albumin Level 2.7 g/dL (3.5-5.1); Alkaline Phosphatase 109 U/L (38-126); Anion Gap 4 mmol/L (4-12); Aspartate Amino Transferase 36 U/L (17-59); Bilirubin,Total 1.3 mg/dL (0.2-1.3); Blood Urea Nitrogen 9 mg/dL (9-20); CRP 14.8 mg/dL (<1.0); Calcium 8.2 mg/dL (8.4-10.2); Carbon Dioxide 30 mmol/L (22-30); Chloride 101 mmol/L (98-107); Estimated CRCL calculation 92 ml/min; Estimated Glomerular Filt Rate > 60; Glucose 101 mg/dL (65-110); Potassium 3.2 mmol/L (3.4-5.0); Sodium 135 mmol/L (137-145); Total Protein 5.3 g/dL (6.3-8.2)
[2025-04-14 11:04] VITALS: BP 100/51; PULSE 94; RESP 18; O2SAT 98
--- NOTE | 2025-04-14 11:10 | PC.NURSE ---
Pt. to CT.
[2025-04-14 11:49] LABS: Erythrocyte Sedimentation Rate 104 mm/hr (0-20)
[2025-04-14 12:49] VITALS: BP 135/83; PULSE 100; RESP 16; O2SAT 98
[2025-04-14] MEDS: POTASSIUM CHLORIDE 20 MEQ ER TABLET 40 MEQ PO (13:36)
[2025-04-14 13:50] VITALS: BP 132/68; PULSE 80; RESP 16; O2SAT 98
== END 2025-04-14 13:56 | disposition home or self-care (01) ==
PROVIDERS: Emergency Provider Physician Assistant; PCP Family Medicine
DX: L97.521 Non-pressure chronic ulcer of other part of left foot limited to breakdown of skin (principal); I73.9 Peripheral vascular disease, unspecified; E87.6 Hypokalemia; Z87.891 Personal history of nicotine dependence
CPT/HCPCS: 36415; 75635; 80053; 85025; 85652; 86140; 87070; 87075; 87205; 99284; A9270; Q9967

== ENCOUNTER 2025-04-26 12:57 | Inpatient (IN) | payer MEDICARE, SELFPAY ==
--- NOTE | ~2025-04-26 | CT_ITS ---
CLINICAL INDICATION: Abdominal pain and diarrhea. Personal history of metastatic prostate cancer and severe peripheral vascular disease. COMPARISON: Reference is made to a CTA of the abdomen with runoff performed 04/14/2025. TECHNIQUE: Multiple contiguous axial images of the abdomen and pelvis were performed following the ad ministration of with 100 mL Omnipaque-350 intravenous contrast The dose-length product (DLP) was 228.17 mGy-cm. Automated exposure control and iterative reconstruction technique were employed. FINDINGS/OBSERVATIONS: Visualized lower thorax: Interval development of bilateral pleural effusions, with adjacent compressive atelectasis. The heart is enlarged, without pericardial effusion. The heart is of normal size, without pericardial effusion. Small hiatal hernia is present. Liver: The liver demonstrates homogeneous enhancement and is not enlarged. Gallbladder and biliary system: The gallbladder contains multiple layering stones and is distended, without surrounding inflammatory change or pericholecystic fluid. Pancreas: The pancreas enhances homogeneously, contains multiple calcifications, and is without ductal dilatati on. Spleen: The spleen enhances homogeneously and is not enlarged. Kidneys: The bilateral kidneys enhance symmetrically without hydronephrosis or renal calculi. Extensive vascul ar calcifications are present. Adrenal glands: Unremarkable. Gastrointestinal tract: Post left hemicolectomy with an enteric staple line in the deep pelvis. Interval development of mural thickening with surrounding inflammatory change involving both the hepa tic flexure of the colon as well as the distal portion of the colon (extending to the level of the an astomosis in the deep pelvis). No gross perforation or drainable fluid collection is identified. Appendix: The air-filled appendix is of normal caliber (axial series, images 135 through 140). Vasculature: Densely calcified atherosclerotic disease, better delineated on CTA of the abdomen with bilateral run off performed 12 days earlier. Lymph nodes: No pathologically enlarged or morphologically suspicious lymph nodes within the retroperitoneum or at the root of the mesentery. Pelvic structures: The bladder is only minimally distended, and otherwise unremarkable. The prostate gland is not enlarged. Body wall and musculoskeletal: Diffuse sclerotic lesions within the visualized osseous structures, consistent with patient's history . IMPRESSION: Findings consistent with a focal colitis involving the hepatic flexure and the distal colon extending to the level of the anastomosis in the deep pelvis. No drainable fluid collection or gross perforati on is present. Interval development of small bilateral pleural effusions with adjacent compressive atelectasis. Otherwise, no interval change from the previous examination dated 04/14/2025 Reviewed, dictated and finalized at location A. IMPRESSION: Findings consistent with a focal colitis involving the hepatic flexure and the distal colon extending to the level of the anastomosis in the deep pelvis. No d rainable fluid collection or gross perforation is present. Interval development of small bilateral pleural effusions with adjacent nancy sive atelectasis. Otherwise, no interval change from the previous examination dated 04/14/2025
[2025-04-26 13:07] VITALS: BP 111/69; PULSE 93; RESP 20; TEMP 36.9; O2SAT 96
[2025-04-26 13:10] VITALS: PULSE 94
--- OUTSIDE RECORDS SUMMARY | 2025-04-26 13:11 | XMS_ITS | Continuity of Care Document ---
Author Organization [facility] Address [address] [place] [address] Phone Care Team Providers Care Chaplain Name Role Phone Denis Cash Unavailable Unavailable Procedures Procedure Date Eye Exam & Treatment Refraction Advance Directives Directive Yes / No Effective Date File Name No Information Encounters Encounter Description Practice Location Reason(s) For Visit Diagnoses Date Provider Providers Copied on Encounter [facility], [address], [place], [place], [id number], [place] tel:[phone] [facility] No Information 0 Shailesh Barrios. [address] [facility] [address], [place], [address], [place]. tel:[phone] Family History Family Member Type Diagnosis Age At Onset No Information Payers Payer name Insurance type Covered constitution party ID Authoriza titerell(s) [facility] Commercial CI [id number] Social History Type Description Quantity Date Captured [...]
--- OUTSIDE RECORDS SUMMARY | 2025-04-26 13:11 | XMS_ITS | Clinical Summary ---
Author Organization [facility] Address [address] [facility] [place] [address] Care Team Providers Care Software Educator Name Role Phone Maykel Gramajo MD Primary Care Provider [phone] Source Comments [facility],non-owned Affiliates and Associated Physician Practices is amultiple site organization consisting of ambulatory clinics and hospital sitesin [place], [place], [place] and [place]. This disclosure is being madepursuant to the Care Everywhere program and may not contain all information available regarding this patient. Last updated 18.[facility] Allergies Active Allergy Reactions Criticality Noted Date [...] (01/24/2021): Added automatically from request for surgery [id number] Chronic rhinitis 08/21/2019 History of epistaxis 08/21/2019 Aneurysm of popliteal artery 08/19/2019 Overview (01/24/2021): Added automatically from request for surgery [id number] Added automatically from request for surgery [id number] Last Assessment & Plan: - S/p status post self-expanding covered stent ([place] Viabahn 9 x 150 mm) placement to [...] the future Coronary artery disease invo lving [place] coronary artery of [place] heart without angina pectoris 03/28/2018 Overview (01/24/2021): [...] on file 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 Gender Identity Not on file Sexual Orientation [...] this topic Medical Devices Implanted Type Area Hydroelectric Operator Device Identifier Shelf Expiration Date Model / Serial / Lot Lens Iol 0 D +22.5 [employer] Mod L Acrsf Iq - [id number] Implanted:Qty: 1 on 02/23/2021 by Hernan Hansen MD at [facility] Right: Eye [employer] 06/21/2023 [id number] / [id number] / Lens Iol 0 D +28.0 [employer] Mod L Acrsf Iq - [id number] Implanted:Qty: 1 on 05/18/2021 by Hernan Hansen MD at [facility] Left: Eye [employer] 11/22/2023 [id number] / [id number] / Insurance MEDICARE [facility] MEDICARE Care Teams Software Educator Relationship Specialty Start Date End Date Maykel Gramajo MD [address] [place] [phone] PCP - General 07/28/20
--- OUTSIDE RECORDS SUMMARY | 2025-04-26 13:11 | XMS_ITS | Clinical Summary ---
Author Organization [facility] Address [address] [place] [address] Care Team Providers Care Medical Appointment Clerk Name Role Phone Maykel Gramajo MD Primary Care Provider +1- [phone] Allergies Active Allergy Reactions Criticality Noted Date [...] days. 40 Capsule 5 04/19/20 25 Active Problems No known active problems Encounters Date Type Department Care Team Description 04/22/2025 Specialty Pharmacy [facility] [address] [place] [address] [place] [address] Latoya Becerra, PHARMACIST Specialty Pharmacy Refill Coordination 04/20/2025 Orders Only [facility] [address] [place] [address] Khai Walsh MD Prostate cancer ([facility]) 04/09/2025 9:15 AM CDT Office Visit [facility] [address] [place] [phone] Khai Walsh MD Prostate cancer ([facility]) (Primary Dx); Infection of nail bed of toe of left foot 04/09/2025 Orders Only [facility] [place] [address] [place] [address] Khai Walsh MD 04/07/2025 External Device Data [place] ABSTRACTION Provider, Abstract 04/06/2025 Orders Only [facility] [place] [address] [place] [address] Khai Walsh MD Prostate cancer ([facility]) 04/02/2025 External Device Data [place] ABSTRACTION Provider, Abstract 04/01/2025 External Device Data [place] ABSTRACTION Provider, Abstract 03/31/2025 External Device Data [place] ABSTRACTION Provider, Abstract 03/27/2025 Orders Only [facility] [place] [address] [place] [address] Khai Walsh MD 03/26/2025 Orders Only [facility] [place] [address] [place] [address] Khai Walsh MD 03/24/2025 Specialty Pharmacy [facility] [address] [place] [phone] Latoya Becerra, PHARMACIST Specialty Pharmacy Refill Coordination 03/23/2025 Orders Only [facility] [place] [address] [place] [address] Khai Walsh MD Prostate cancer ([facility]) 03/20/2025 Orders Only [facility] [place] [address] [facility] [place] [address] Khai Walsh MD 03/12/2025 11:45 AM CDT Office Visit [facility] [place] [address] [place] [address] Khai Walsh MD Prostate cancer ([facility]) (Primary Dx) 03/12/2025 Orders Only [facility] - [place] [address] [place] [address] Khai Walsh MD 03/11/2025 Telephone [facility] [place] [address] [place] [address] Khai Walsh MD Merged With [facility] 03/09/2025 Orders Only [facility] - [place] [address] [place] [address] Khai Walsh MD Prostate cancer ([facility]) 03/06/2025 Orders Only [facility] [place] [address] [place] [address] Khai Walsh MD 02/27/2025 Orders Only [facility] - [place] [address] [place] [address] Khai Walsh MD 02/26/2025 Orders Only [facility] [place] [address] [place] [address] Khai Walsh MD Prostate cancer ([facility]) (Primary Dx) 02/24/2025 External Device Data [place] ABSTRACTION Provider, Abstract 02/23/2025 Orders Only [facility] [place] [address] Khai Walsh MD Prostate cancer ([facility]) 02/20/2025 Orders Only [facility] [place] [address] Khai Walsh MD 02/19/2025 9:15 AM CDT Office Visit [facility] [place] [address] Khai Walsh MD Prostate cancer ([facility]) (Primary Dx); Shortness of breath 02/19/2025 Orders Only [facility] [place] [address] [place] [address] Khai Walsh MD 02/19/2025 Specialty Pharmacy [facility] [address] [place] [phone] Latoya Becerra, PHARMACIST Specialty Pharmacy Refill Coordination 02/17/2025 External Device Data [place] ABSTRACTION Provider, Abstract 02/09/2025 Orders Only [facility] [place] [address] [place] [address] Khai Walsh MD Prostate cancer ([facility]) 01/29/2025 Abstract [facility] [place] [address] [place] [address] Khai Walsh MD 01/29/2025 Orders Only [facility] [place] [address] [place] [phone] Khai Walsh MD Prostate cancer ([facility]) (Primary Dx) 01/28/2025 External Device Data [place] ABSTRACTION Provider, Abstract 01/27/2025 Orders Only [facility] [place] [address] [place] [address] Khai Walsh MD Prostate cancer ([facility]) (Primary Dx) from Last 3 Months Family [...] on file 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 Gender Identity Not on file Sexual [...] 172.7 cm (5' 8) 12/02/2024 10:06 AM TALKING [employer] LIBRARY CLERK Body Mass Index 22.72 12/02/2024 10:06 AM TALKING [employer] LIBRARY CLERK Plan of Treatment Upcoming Encounters Date Type Department Care Team (Late st Contact Info) Description 04/27/2025 9:00 AM CDT Office Visit [facility] [place] [address] [facility] [address] [place] [address] Khai Walsh MD [address] [facility] [address] [place] [address] Health Maintenance Due Date Last Done Comments PNEUMOCOCCAL VACCINE 50+ YEA RS (1 of 2 - PCV) 1969 FIT-DNA Q 3 years 1995 FIT/FOBT [...] resultswithin the time period is included. Blood Kahi Walsh MD CHEMISTRY ORDERABLES Final Resu lt [...] Months Insurance MEDICARE PART A AND B [facility] [id number] RX [employer] RX Member Subscriber Plan / Payer (Ef fective 2024-Present) Name:Gume Roberson Relation to Subscriber:Self Name:Gume Roberson Payer ID:Not on file Group ID:[id number] Type:RX Medicare Part D Address: [address] Care Teams Medical Appointment Clerk Relationship Specialty Start Date End Date Maykel Gramajo MD [address] [place] [phone] PCP - General Family Practice 12/02/24
--- OUTSIDE RECORDS SUMMARY | 2025-04-26 13:11 | XMS_ITS | Encounter Summary ---
Author Organization [facility] Address [address] [place] [address] Care Team Providers Care Airport Operations Coordinator Name Role Phone Maykel Gramajo MD Primary Care Provider +1- [phone] Encounter Details Date Type Department Care Team (Late st Contact Info) Description 08/19/2018 Lab Requisition [facility] [address] [place] [address] Unlisted, Ordering Provider, Social History Tobacco Use Types Packs/Day Years Used Date Smoking Tobacco: Never Assessed Sex and Gender Information Value Date Recorded Sex Assigned at Not on file 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 Treatment Target Values: Normal : < 5.7% Pre-diabetes: 5.7-6.4% Diabetes: Equal to or greater than 6.5% Reference: [place] [employer] Standards of Care in Diabetes -2014 In patients 70 years and older consider HbA1c target range of 7.0-7.5% Reference: Diabetes Mellitus in Older People: Position Statement on behalf of the International Association of Gerontology and Geriatrics (IAGG), the Diabetes Working Republican for Older People (EDWPOP), and the International Task Force of Experts in Diabetes. Pj Brandon, et al. J [place] [employer] Association. 2012 Test results diagnostic [...] LAB - CHEMISTRY OR DERABLES Final Result [address] [phone] * (ABNORMAL) LIPID PROFILE (08/22/2018 7:20 AM CDT) [facility] Signature Cholesterol Total 93 <200 mg/dL 08/22/2018 10:49 AM CDT [facility] HDL 32(L) >40 mg/dL 08/22/2018 10:49 AM [facility] Comment: ATP III Classification of HDL Cholesterol: <40 mg/dL: Considered a major risk factor. >60 mg/dL: Considered a negative risk factor. LDL Calculated 36 <100 mg/dL 08/22/2018 10:49 AM T [facility] Comment: ATP III Classification of LDL Cholesterol: <100 mg/dL: Optimal 100 - 129 mg/dL: Near Optimal/Above Optimal 130 - 159 mg/dL: Borderline High 160 - 189 mg/dL: High >190 mg/dL: Very High Triglycerides 125 <150 mg/dL 08/22/2018 10:49 AM CDT [facility] Comment: ATP III Classification of Triglycerides: <150 mg/dL: Normal 150 - 199 mg/dL: Borderline High 200 - 400 mg/dL: High >500 mg/dL: Very High Blood BLOOD SPECIMEN / Unknown Lab Venipuncture / Unknown 08/22/2018 7:20 AM CDT 08/22/2018 9:54 AM CDT us Ordering Provider Unlisted MD LAB - CHEMISTRY OR DERABLES Final Result [address] [phone] * GLUCOSE VITALITY (08/22/2018 7:20 AM CDT) Glucose 101 70 - 115 mg/dL 08/22/2018 10:23 AM CDT [facility] Blood BLOOD SPECIMEN / Unknown Lab Venipuncture / Unknown 08/22/2018 7:20 AM CDT 08/22/2018 9:54 AM CDT us Ordering Provider Unlisted MD LAB - CHEMISTRY OR DERABLES Final Result Performing Organization Address City/[facility]/ZIP Co de Phone Number [address] [phone] documented in this encounter Visit Diagnoses Not on filedocumented in this encounter Care Teams Airport Operations Coordinator Relationship Specialty Start Date End Date Maykel Gramajo MD [address] [place] [phone] PCP - General 07/28/20 documented as of this encounter
[2025-04-26 13:18] LABS: Basophils Absolute Auto 0.1 K/mm3 (0.0-0.1); Basophils Percent Auto 1.3 % (0.2-1.2); Eosinophils Absolute Auto 0.9 K/mm3 (0-0.3); Eosinophils Percent Auto 11.1 % (0-4.4); Hematocrit 33.5 % (42.0-52.0); Hemoglobin 10.5 g/dL (14.0-18.0); Immature Granulocyte Absolute 0.03 K/mm3 (0.00-0.031); Immature Granulocyte Percent A 0.4 % (0-0.5); Lymphocytes Absolute Auto 0.79 K/mm3 (0.9-3.2); Lymphocytes Percent Auto 9.6 % (18.3-44.2); Mean Corpuscular HGB Conc 31.3 g/dl (32-36); Mean Corpuscular Hemoglobin 28.5 pg (26-34); Mean Platelet Volume 9.7 fl (7.4-10.4); Monocytes Absolute Auto 1.1 K/mm3 (0.1-0.6); Monocytes Percent Auto 13.6 % (2.6-8.5); Neutrophils Absolute Auto 5.3 K/mm3 (1.3-6.7); Platelet Count Result 285 k/mm3 (150-375); Red Blood Count 3.68 M/mm3 (4.6-6.20); Red Cell Distribution Width 18.5 % (11.5-14.5); White Blood Count 8.2 K/mm3 (4.5-10.0)
[2025-04-26 13:28] LABS: Alanine Aminotransferase 10 U/L (6-50); Albumin Level 2.4 g/dL (3.5-5.1); Alkaline Phosphatase 90 U/L (38-126); Anion Gap 4 mmol/L (4-12); Aspartate Amino Transferase 31 U/L (17-59); Bilirubin,Total 0.9 mg/dL (0.2-1.3); Blood Urea Nitrogen 4 mg/dL (9-20); Calcium 7.4 mg/dL (8.4-10.2); Carbon Dioxide 26 mmol/L (22-30); Chloride 104 mmol/L (98-107); Estimated CRCL calculation 110 ml/min; Estimated Glomerular Filt Rate > 60; Glucose 78 mg/dL (65-110); Lipase 35 U/L (23-300); Potassium 2.9 mmol/L (3.4-5.0); Sodium 134 mmol/L (137-145); Total Protein 4.9 g/dL (6.3-8.2)
[2025-04-26] MEDS: LACTATED RINGERS 1,000 ML 999 ML IV CONT (13:30)
[2025-04-26] MEDS: ONDANSETRON INJ 4 MG/2 ML VIAL IV PUSH (13:30)
[2025-04-26 13:34] LABS: INR 1.3
[2025-04-26 13:35] LABS: Partial Thromboplastin Time 50.8 Seconds (22.3-36.8)
[2025-04-26 13:36] LABS: Lactic Acid Reflex 0.9 mmol/L (0.7-2.0)
--- NOTE | 2025-04-26 13:41 | ED_ITS ---
HPI - General Adult General Chief complaint: Weakness Stated complaint: abd pain, n/v Time Seen by Provider: 04/26/25 12:59 History of Present Illness HPI narrative: [age] old male with history of prostate cancer currently on chemotherapy present to the emergency department for evaluation for decreased p.o. intake and worsening diarrhea over the course of the last week. Patient is currently following up with Dr. Walsh. Patient did receive chemotherapy approximately 3 weeks ago but his weekly treatments have been held due to an ongoing infection with his 5th toe on the left foot. Patient was on 2 rounds of antibiotics 1st he was on cephalexin and secondly he was on doxycycline. Toe has been healing well but patient has had worsening diarrhea and decreased p.o. intake. Patient denies any blood in his stool. Patient denies any associated abdominal pain other than intermittent pain secondary to gas distention. Related Data Home Medications ?Medication ?Instructions ?Recorded ?Confirmed ?Last Taken ?Type aspirin 81 mg tablet,delayed 81 mg PO DAILY 10/17/19 04/17/25 01/10/25 History release (Josselin Low Dose Aspirin) cholecalciferol (vitamin D3) 125 5,000 unit PO DAILY 10/17/19 04/17/25 01/10/25 History mcg (5,000 unit) capsule mesalamine 1.2 gram tablet,delayed 2.4 gm PO DAILY 10/17/19 04/17/25 01/13/25 History release (Lialda) metoprolol succinate 25 mg 25 mg PO HS 10/17/19 04/17/25 01/13/25 History tablet,extended release 24 hr (Toprol XL) multivitamin 1 tablet PO DAILY 10/17/19 04/17/25 01/10/25 History nitroglycerin 0.4 mg sublingual 0.4 mg sublingual DIRECTED 09/17/23 04/17/25 Unknown History tablet rivaroxaban 10 mg tablet (Xarelto) 10 mg PO HS 06/26/24 04/17/25 01/10/25 History abiraterone 250 mg tablet 1,000 mg PO DAILY 01/01/25 04/17/25 01/14/25 08:00 History prednisone 5 mg tablet 5 mg PO Q12H 01/01/25 04/17/25 01/14/25 09:00 History Allergies Allergy/AdvReac Type Severity Reaction Status Date / Time escitalopram Allergy Unknown Asthma Verified 04/17/25 15:15 sildenafil Allergy Unknown Hypotension Verified 04/17/25 15:15 Penicillins AdvReac Mild Diarrhea Verified 04/17/25 15:15 amoxicillin AdvReac Unknown Diarrhea Verified 04/17/25 15:15 ciprofloxacin AdvReac Unknown Diarrhea Verified 04/17/25 15:15 gemfibrozil AdvReac Unknown myalgias Verified 04/17/25 15:15 lactase AdvReac Unknown Nausea Verified 04/17/25 15:15 Review of Systems 2 Review of Systems: All systems reviewed & are unremarkable except as noted in HPI and below PMFSH Past Medical History Medical History Allergic rhinitis Deviated nasal septum Anterior epistaxis Squamous cell carcinoma lung Anxiety Fistula Bundle branch block, right COPD (chronic obstructive pulmonary disease) Coronary artery disease Proctitis Ulcerative colitis Surgical History Surgical History Port-A-Cath in place 01/14/25 Placement right internal jugular vein Port-A-Cath using ultrasound and under fluoroscopy per Dr. Arenas History of lobectomy of lung S/P pneumonectomy H/O heart bypass surgery History of colon surgery Family History Family History Father Asthma Mother Acute myocardial infarction Son Carcinoma of colon Other Family history of cardiovascular disease Social History Social History Social History: Caffeine-tea Smoking packs per day: 2 Smoking cigarettes per day: 40.0 Years smoked: 35 Smoking pack-years: 70.00 Smoking status: Former smoker Tobacco type: cigarettes Second hand tobacco smoke exposure: No Smoking end date: 11/12/04 Alcohol intake: never Substance use: never Substance use type: does not use Do You Feel Safe in your Home?: Yes Lack of Transportation: No Lack of Food: Never True Current Housing: I Have Housing Concerned About Future Housing: No Difficulty Paying Gas/Electric Bills: No Difficulty Paying for Meds: No Currently Unemployed: No Education: Bachelor's Degree Difficulty w/ Childcare or Family Care: No Living arrangements: with family Additional living arrangements comments: Spiritual care concerns: No Exam 2 Narrative: APPEARANCE: Frail and ill-appearing HEAD: normocephalic, atraumatic. EYES: PERRLA/EOMI, conjunctivae clear. NOSE: Normal no drainage EARS:TMS clear with good light reflex. THROAT: Pharynx clear, no exudate. NECK: Supple. No adenopathy, no masses. RESPIRATORY: Airway patent, respirations nonlabored. Clear to auscultation bilaterally, no rales, rhonchi, wheezing. CARDIOVASCULAR: Regular rate and rhythm without murmurs rubs or gallops. ABDOMINAL: Soft, nontender, nondistended, normal bowel sounds MUSCULOSKELETAL: Moves all extremities. Strength/ROM intact, No edema, No calf tenderness. NEURO: Alert. Cranial nerves II through XII intact. Good gait. Good coordination SKIN: Warm, dry. Normal Color Course Vital Signs Vital signs: Vital Signs Temperature 98.4 F 04/26/25 13:07 Pulse Rate 93 04/26/25 13:07 Respiratory Rate 20 04/26/25 13:07 Blood Pressure 111/69 04/26/25 13:07 Pulse Oximetry 96 04/26/25 13:07 Oxygen Delivery Room Air 04/26/25 13:07 Temperature 98.4 F 04/26/25 13:07 Pulse Rate 97 04/26/25 16:25 Respiratory Rate 20 04/26/25 16:25 Blood Pressure 142/90 H 04/26/25 16:25 Pulse Oximetry 100 04/26/25 16:25 Oxygen Delivery Room Air 04/26/25 13:07 Medical Decision Making [facility] Narrative Medical decision making narrative: 74 old male presents to the emergency department for evaluation for persistent diarrhea, decreased p.o. intake and worsening generalized weakness. Patient is currently afebrile with no leukocytosis hemoglobin of 10.5. Patient does have potassium 2.9 this is replaced by p.o.. Urine was negative for acute infection. Patient was negative for C diff influenza RSV for COVID. CT abdomen pelvis did show evidence of colitis with no drainable abscess. Case was discussed with hospitalist patient was accepted for admission. Differential Diagnosis Differential Diagnosis: Colitis, diverticulitis, C diff, STEVE, dehydration, failure to thrive, UTI Vital Signs Vital Signs: Vital Signs Temperature 98.4 F 04/26/25 13:07 Pulse Rate 93 04/26/25 13:07 Respiratory Rate 20 04/26/25 13:07 Blood Pressure 111/69 04/26/25 13:07 Pulse Oximetry 96 04/26/25 13:07 Oxygen Delivery Room Air 04/26/25 13:07 Temperature 98.4 F 04/26/25 13:07 Pulse Rate 97 04/26/25 16:25 Respiratory Rate 20 04/26/25 16:25 Blood Pressure 142/90 H 04/26/25 16:25 Pulse Oximetry 100 04/26/25 16:25 Oxygen Delivery Room Air 04/26/25 13:07 Lab Data Lab results reviewed: Yes I reviewed the patient's lab results. 04/26/25 13:12 04/26/25 13:12 Labs: Lab Results 04/26/25 04/26/25 04/26/25 Range/Units 13:12 13:22 13:48 WBC 8.2 (4.5-10.0) K/mm3 RBC 3.68 L (4.6-6.20) M/mm3 Hgb 10.5 L (14.0-18.0) g/dL Hct 33.5 L (42.0-52.0) % MCV 91.0 (80-100) fl MCH 28.5 (26-34) pg MCHC 31.3 L (32-36) g/dl RDW 18.5 H (11.5-14.5) % Plt Count 285 (150-375) k/mm3 MPV 9.7 (7.4-10.4) fl Immature Gran % (Auto) 0.4 (0-0.5) % Neut % (Auto) 64.0 (45.5-73.1) % Lymph % (Auto) 9.6 L (18.3-44.2) % [place] % (Auto) 13.6 H (2.6-8.5) % Eos % (Auto) 11.1 H (0-4.4) % Baso % (Auto) 1.3 H (0.2-1.2) % Lymph # (Auto) 0.79 L (0.9-3.2) K/mm3 [place] # (Auto) 1.1 H (0.1-0.6) K/mm3 Eos # (Auto) 0.9 H (0-0.3) K/mm3 Baso # (Auto) 0.1 (0.0-0.1) K/mm3 Abs Immat Gran (auto) 0.03 (0.00-0.031) K/mm3 Absolute Neuts (auto) 5.3 (1.3-6.7) K/mm3 Absolute Nucleated RBC 0.000 (0.0-0.012) K/mm3 Nucleated RBC % 0.0 (0.0-0.2) % PT 16.0 H (11.1-14.7) Seconds INR 1.3 APTT 50.8 H (22.3-36.8) Seconds Sodium 134 L (137-145) mmol/L Potassium 2.9 L (3.4-5.0) mmol/L Chloride 104 (98-107) mmol/L Carbon Dioxide 26 (22-30) mmol/L Anion Gap 4 (4-12) mmol/L BUN 4 L D (9-20) mg/dL Creatinine 0.44 L (0.7-1.3) mg/dL Estim Creat Clear Calc 110 ml/min Estimated GFR > 60 (59 - ) Glucose 78 (65-110) mg/dL Lactic Acid 0.9 (0.7-2.0) mmol/L Calcium 7.4 L (8.4-10.2) mg/dL Magnesium 1.8 (1.6-2.3) mg/dL Total Bilirubin 0.9 (0.2-1.3) mg/dL AST 31 (17-59) U/L ALT 10 (6-50) U/L Alkaline Phosphatase 90 (38-126) U/L Total Protein 4.9 L (6.3-8.2) g/dL Albumin 2.4 L (3.5-5.1) g/dL Lipase 35 (23-300) U/L Urine Color Dark yellow (Yellow) Urine Appearance Clear (Clear) Urine pH 6.0 (5.0-9.0) Ur Specific [place] 1.021 (1.001-1.035) Urine Protein Trace (Negative) mg/dL Urine Glucose (UA) Negative (Negative) mg/dL Urine Ketones 1+ H (Negative) mg/dL Ur Blood (Man) Negative (Negative) Urine Nitrate Negative (Negative) Urine Bilirubin 1+ H (Negative) Urine Urobilinogen 1.0 (<2.0) mg/dL Add Ur Microanalysis Reviewed Leukocyte Esterase Rfl Negative (Negative) CLIFF/UL Urine RBC 0-2 (0-2) /hpf Urine WBC 0-5 (0-3) /hpf Ur Squamous Epith Cells Occasional (Few) /hpf Urine Bacteria None seen /hpf Urine Casts 3-5 Urine Mucus Present /lpf C. difficile (PCR) Negative (NEGATIVE) Influenza A (RT-PCR) Negative (Negative) Influenza B (RT-PCR) Negative (Negative) RSV (RT-PCR) Negative (Negative) SARS-CoV-2 RNA (RT-PCR) Negative (Negative) Imaging Data Radiologist's impression: Impressions Abdomen/Pelvis CT 04/26/25 15:02 IMPRESSION: Findings consistent with a focal colitis involving the hepatic flexure and the distal colon extending to the level of the anastomosis in the deep pelvis. No drainable fluid collection or gross perforation is present. Interval development of small bilateral pleural effusions with adjacent compressive atelectasis. Otherwise, no interval change from the previous examination dated 04/14/2025 Discharge Plan Discharge Clinical Impression: Colitis, Adult failure to thrive, Diarrhea Patient Disposition: Still a Patient Condition: Stable
[2025-04-26] MEDS: KCL 20 MEQ/SW 100 ML 100 ML 50 MEQ IVPB (13:59)
[2025-04-26 14:10] LABS: Add Urine Microscopic? YES; Appearance Urine Clear (Clear); Bacteria Urine None Seen /hpf; Bilirubin Urine 1+ (Negative); Blood Urine Negative (Negative); Color Urine Dark Yellow (Yellow); Glucose Urine UA Negative (Negative); Ketones Urine 1+ mg/dL (Negative); Leukocyte Esterase Ur Negative LEU/UL (Negative); Mucus Urine Present /lpf; Need Manual Microscopic Reviewed; Nitrate Urine Negative (Negative); Protein Urine Trace mg/dL (Negative); RBC Urine 0-2 /hpf (0-2); Specific Grav Ur 1.021 (1.001-1.035); Squamous Epithelial Cell Urine Occasional /hpf (Few); WBC Urine 0-5 /hpf (0-3)
[2025-04-26 14:33] LABS: Influenza A QL RT-PCR Negative (Negative); Influenza B QL RT-PCR Negative (Negative); RSV RNA, RT-PCR Negative (Negative); SARS-CoV-2 RNA PCR Negative (Negative)
[2025-04-26 14:44] LABS: Toxigenic C. Diff NEGATIVE (NEGATIVE)
[2025-04-26 15:21] VITALS: BP 136/69; PULSE 100; RESP 20; O2SAT 96
--- NOTE | 2025-04-26 15:49 | PM.IMHP ---
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 Patient had been treated with Keflex initially and then switched to doxycycline which he completed and obtained resolution of erythema/pain of the left 5th toe. Patient stated that 5 days ago he started having significant diarrhea numerous times per day. He denies nausea or vomiting but states that everything he puts on his stomach makes him have near immediate diarrhea output. He states this got worse yesterday and has continued pretty bad throughout the day today. Patient had taken Imodium around 6:00 a.m. this morning but it did not seem to help. He came to the emergency department where workup showed normal white blood cell count, chronic anemia, hypokalemia of 2.9, mild hyponatremia at 1:34 a.m. and mild hypocalcemia 7.4. Urinalysis showed 1+ ketones 1+ bilirubin but no signs to indicate infection. Stool was sent and negative for C diff. COVID flu and RSV testing was also negative. Patient received IV fluids and potassium in the emergency department. On admission I added magnesium testing with Mag level of 1.8. Patient received 1 g IV magnesium to try to help the potassium absorb better. CT scan of the abdomen and pelvis showed focal colitis of the hepatic flexure to the anastomosis site. Patient has a history of ulcerative colitis/proctitis. He also states that when he undergoes his chemotherapy treatment he receives steroids that helps to control his diarrhea and abdominal pain for a few days and then it wears off by Sunday or Sunday. Added inflammatory markers which show CRP of 8, ESR of 35 and procalcitonin of 0.1. Do not suspect bacterial colitis at this time. 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 We had tried to give patient additional loperamide which was also not helpful. Mesalamine is not available the patient has taken that before. Added PRN Lomotil to orders. Patient requested IV fluids since he has not been able to eat/drink anything without causing diarrhea. Started D5LR at 65 mL/hr. Review of Systems Review of Systems: All systems reviewed & are unremarkable except as noted in HPI and below PMFSH Past Medical History Medical History Allergic rhinitis Deviated nasal septum Anterior epistaxis Squamous cell carcinoma lung Anxiety Fistula Bundle branch block, right COPD (chronic obstructive pulmonary disease) Coronary artery disease Proctitis Ulcerative colitis Surgical History Surgical History Port-A-Cath in place 01/14/25 Placement right internal jugular vein Port-A-Cath using ultrasound and under fluoroscopy per Dr. Arenas History of lobectomy of lung S/P pneumonectomy H/O heart bypass surgery History of colon surgery Family History Family History Father Asthma Mother Acute myocardial infarction Son Carcinoma of colon Other Family history of cardiovascular disease Social History Social History Social History: Caffeine-tea Smoking packs per day: 2 Smoking cigarettes per day: 40.0 Years smoked: 35 Smoking pack-years: 70.00 Smoking status: Former smoker Second hand tobacco smoke exposure: No Alcohol intake: never Substance use: never Substance use type: does not use Do You Feel Safe in your Home?: Yes Lack of Transportation: No Lack of Food: Never True Current Housing: I Have Housing Concerned About Future Housing: No Difficulty Paying Gas/Electric Bills: No Difficulty Paying for Meds: No Currently Unemployed: No Education: Bachelor's Degree Difficulty w/ Childcare or Family Care: No Living arrangements: with family Additional living arrangements comments: Spiritual care concerns: No Meds Home Medications and Allergies Home Medications ?Medication ?Instructions ?Recorded ?Confirmed ?Type cholecalciferol (vitamin D3) 125 5,000 unit PO DAILY 10/17/19 04/26/25 History mcg (5,000 unit) capsule mesalamine 1.2 gram tablet,delayed 2.4 gm PO DAILY 10/17/19 04/26/25 History release (Lialda) metoprolol succinate 25 mg 25 mg PO HS 10/17/19 04/26/25 History tablet,extended release 24 hr (Toprol XL) multivitamin 1 tablet PO DAILY 10/17/19 04/26/25 History rivaroxaban 10 mg tablet (Xarelto) 10 mg PO HS 06/26/24 04/26/25 History fenofibrate 160 mg tablet See Rx Instructions .Route 12/01/24 04/26/25 Rx .COMPLEX #90 tabs abiraterone 250 mg tablet 1,000 mg PO DAILY 01/01/25 04/26/25 History prednisone 5 mg tablet 5 mg PO DAILY 01/01/25 04/26/25 History simvastatin 20 mg tablet (Zocor) 20 mg PO HS #90 tabs 02/06/25 04/26/25 Rx pregabalin 100 mg capsule (Lyrica) 100 mg PO Q12H 90 days #180 caps 02/16/25 04/26/25 Rx alprazolam 0.25 mg tablet (Xanax) 0.25 mg PO QHS PRN anxiety 04/26/25 04/26/25 History triamcinolone acetonide 0.1 % 1 applic topical PRN 04/26/25 04/26/25 History topical cream Allergies Allergy/AdvReac Type Severity Reaction Status Date / Time escitalopram Allergy Unknown Asthma Verified 04/17/25 15:15 sildenafil Allergy Unknown Hypotension Verified 04/17/25 15:15 Penicillins AdvReac Mild Diarrhea Verified 04/17/25 15:15 amoxicillin AdvReac Unknown Diarrhea Verified 04/17/25 15:15 ciprofloxacin AdvReac Unknown Diarrhea Verified 04/17/25 15:15 gemfibrozil AdvReac Unknown myalgias Verified 04/17/25 15:15 lactase AdvReac Unknown Nausea Verified 04/17/25 15:15 Vital Signs Vital Signs - 24 hr 04/26/25 13:07 04/26/25 13:10 04/26/25 15:21 Temperature 36.9 C Pulse Rate 93 94 100 Respiratory Rate 20 20 Blood Pressure 111/69 136/69 Pulse Oximetry 96 96 Oxygen Delivery Room Air Exam Narrative: APPEARANCE: Frail and ill-appearing HEENT: normocephalic, atraumatic, PERRLA/EOMI NECK: Supple. No adenopathy, no masses. RESPIRATORY: Airway patent, respirations nonlabored. Clear to auscultation bilaterally, no rales, rhonchi, wheezing. CARDIOVASCULAR: Regular rate and rhythm without murmurs rubs or gallops. ABDOMINAL: Soft, nontender, nondistended, normal bowel sounds MUSCULOSKELETAL: Moves all extremities. Strength/ROM intact, No edema, No calf tenderness. NEURO: Alert. Cranial nerves II through XII intact. Good gait. Good coordination SKIN: Warm, dry. Normal Color H&P: Results Labs Labs: Short CBC 04/26/25 Range/Units 13:12 WBC 8.2 (4.5-10.0) K/mm3 Hgb 10.5 L (14.0-18.0) g/dL Hct 33.5 L (42.0-52.0) % Plt Count 285 (150-375) k/mm3 BMP 04/26/25 13:12 Sodium 134 L Potassium 2.9 L Chloride 104 Carbon Dioxide 26 BUN 4 L D Creatinine 0.44 L Glucose 78 Calcium 7.4 L Liver Function 04/26/25 Range/Units 13:12 Total Bilirubin 0.9 (0.2-1.3) mg/dL AST 31 (17-59) U/L ALT 10 (6-50) U/L Alkaline Phosphatase 90 (38-126) U/L Albumin 2.4 L (3.5-5.1) g/dL Urine 04/26/25 Range/Units 13:48 Urine Color Dark yellow (Yellow) Urine Appearance Clear (Clear) Urine pH 6.0 (5.0-9.0) Ur Specific [place] 1.021 (1.001-1.035) Urine Protein Trace (Negative) mg/dL Urine Glucose (UA) Negative (Negative) mg/dL Pulse Oximetry SpO2 results: 95-100% on room air Attestation: I personally reviewed and interpreted this pulse oximetry as follows: Interpretation: no need for supplemental oxygenation at this time Imaging CT scan - abdomen: Radiologist's impression: CLINICAL INDICATION: Abdominal pain and diarrhea. Personal history of metastatic prostate cancer and severe peripheral vascular disease. COMPARISON: Reference is made to a CTA of the abdomen with runoff performed 04/14/2025. TECHNIQUE: Multiple contiguous axial images of the abdomen and pelvis were performed following the administration of with 100 mL Omnipaque-350 intravenous contrast The dose-length product (DLP) was 228.17 mGy-cm. Automated exposure control and iterative reconstruction technique were employed. FINDINGS/OBSERVATIONS: Visualized lower thorax: Interval development of bilateral pleural effusions, with adjacent compressive atelectasis. The heart is enlarged, without pericardial effusion. The heart is of normal size, without pericardial effusion. Small hiatal hernia is present. Liver: The liver demonstrates homogeneous enhancement and is not enlarged. Gallbladder and biliary system: The gallbladder contains multiple layering stones and is distended, without surrounding inflammatory change or pericholecystic fluid. Pancreas: The pancreas enhances homogeneously, contains multiple calcifications, and is without ductal dilatation. Spleen: The spleen enhances homogeneously and is not enlarged. Kidneys: The bilateral kidneys enhance symmetrically without hydronephrosis or renal calculi. Extensive vascular calcifications are present. Adrenal glands: Unremarkable. Gastrointestinal tract: Post left hemicolectomy with an enteric staple line in the deep pelvis. Interval development of mural thickening with surrounding inflammatory change involving both the hepatic flexure of the colon as well as the distal portion of the colon (extending to the level of the anastomosis in the deep pelvis). No gross perforation or drainable fluid collection is identified. Appendix: The air-filled appendix is of normal caliber (axial series, images 135 through 140). Vasculature: Densely calcified atherosclerotic disease, better delineated on CTA of the abdomen with bilateral runoff performed 12 days earlier. Lymph nodes: No pathologically enlarged or morphologically suspicious lymph nodes within the retroperitoneum or at the root of the mesentery. Pelvic structures: The bladder is only minimally distended, and otherwise unremarkable. The prostate gland is not enlarged. Body wall and musculoskeletal: Diffuse sclerotic lesions within the visualized osseous structures, consistent with patient's history. IMPRESSION: Findings consistent with a focal colitis involving the hepatic flexure and the distal colon extending to the level of the anastomosis in the deep pelvis. No drainable fluid collection or gross perforation is present. Interval development of small bilateral pleural effusions with adjacent compressive atelectasis. Otherwise, no interval change from the previous examination dated 04/14/2025 Reviewed, dictated and finalized at location A. Assessment and Plan Assessment and plan (1) Fatigue: Code(s): R53.83 - Other fatigue Status: Acute Assessment and Plan: -Severe acute fatigue related to diarrhea, hypokalemia, cancer undergoing chemotherapy -Unable to care for self at home right now (2) Ulcerative colitis: Code(s): K51.90 - Ulcerative colitis, unspecified, without complications Status: Acute Assessment and Plan: -Focal colitis from hepatic flexure to anastamosis site, normal WBC -Add ESR, CRP, Procalcitonin to ER labs -Consider steroids if inflammatory markers elevated -Stool culture has been collected, C-diff negative -D5LR at 65 mL/hr -ESR/CRP elevated, procalcitonin normal -Added IV Solu-Medrol 40 mg Q8HR for now (3) Hypokalemia: Code(s): E87.6 - Hypokalemia Status: Chronic Assessment and Plan: -Potassium 2.9, history of hypokalemia -Likely worse today due to several days of profuse diarrhea -Magnesium 1.8, will give one gram IV -Patient received 20 mEq KCL IV in ER, ordered 40 mEq oral as well (4) Unspecified sleep apnea: Code(s): G47.30 - Sleep apnea, unspecified Status: Acute Assessment and Plan: -Offer AutoPAP if patient wants, bring home CPAP if available (5) Non-small cell lung cancer: Code(s): C34.90 - Malignant neoplasm of unspecified part of unspecified bronchus or lung Status: Acute Assessment and Plan: -Getting weekly chemotherapy with Dr. Walsh -Has not been getting for a few weeks related to cellulitis of toe for which patient has been on Keflex then doxycycline -Full code at this time (6) Secondary malignant neoplasm of bone: Code(s): C79.51 - Secondary malignant neoplasm of bone Status: Acute Assessment and Plan: -See above (7) Prostate cancer: Code(s): C61 - Malignant neoplasm of prostate Status: Chronic Assessment and Plan: -See above Quality VTE Prophylaxis VTE prophylaxis: mechanical ordered If No VTE Prophylaxis Answer both mechanical and pharmacologic: Reason no pharmacologic proph: medical contraindication active bleeding/bleeding risk Hospitalist MIPS Advance Care Plan I have confirmed that the patient's Advanced Care Plan is present, code status is documented, or surrogate decision maker is listed in patient medical record.: Yes Medication Reconciliation I have utilized all available resources to obtain, update and review the patients current medications (includes all prescriptions, OTC, herbals, cannabis, and nutritional supplements).: Yes
[2025-04-26 16:08] LABS: Magnesium 1.8 mg/dL (1.6-2.3)
[2025-04-26] MEDS: LOPERAMIDE HCL 2 MG CAPSULE 4 MG PO (16:21)
[2025-04-26] MEDS: POTASSIUM CHLORIDE 20 MEQ PACKET (FOR LIQUID) 40 MEQ PO (16:21)
[2025-04-26 16:25] VITALS: BP 142/90; PULSE 97; RESP 20; O2SAT 100
--- NOTE | 2025-04-26 17:57 | PCRCNOTE ---
I went to talk to the patient about wearing one of our CPAP/BIPAP's while he stays with us in the hospital. Patient said he does not and has never used a BiPAP or CPAP at home or in the hospital. Pt said he does not need one while he is here.
[2025-04-26 18:18] VITALS: BMI 21.5
--- NOTE | 2025-04-26 18:36 | ADMGEN ---
This patient, Gume Roberson Jr., was admitted to [facility] Surg Room 312-01 at 1705. Patient/family oriented to hospital policies and general routines including ID bracelet, bed and alarms, visiting hours, pain management, procedures, bathroom and other care routines, personal items, smoking policy, room service/diet, and visiting hours. Information on how to activate the Rapid Response Team has been discussed. Patient/Family are encouraged to report perceived risks to care and to ask questions if they do not understand what they are told or what they should do.
[2025-04-26] MEDS: MAGNESIUM SULF 1 GM/D5W 100 ML 1 GM/100 ML BAG IVPB (18:37)
[2025-04-26 20:00] VITALS: PULSE 107
[2025-04-26 20:29] VITALS: BP 135/63; PULSE 109; RESP 16; TEMP 36.9; O2SAT 97
[2025-04-26 21:42] LABS: Procalcitonin 0.1 ng/mL
[2025-04-26] MEDS: SIMVASTATIN 20 MG TABLET PO (21:53)
[2025-04-26] MEDS: methylPREDNISolone SOD SUCC 125 MG VIAL 40 MG IV PUSH (21:53)
[2025-04-26] MEDS: METOPROLOL SUCCINATE EXT REL 25 MG TABCR PO (21:53)
[2025-04-26] MEDS: DEXTROSE 5%/LACTATED RINGERS 1,000 ML 65 ML IV CONT (21:55)
[2025-04-26 22:21] LABS: Erythrocyte Sedimentation Rate 35 mm/hr (0-20)
[2025-04-27] VITALS (9 sets, daily range): BP systolic 110–122; BP diastolic 56–66; PULSE 97–102; RESP 16–18; TEMP 36.1–36.8; O2SAT 95–98; BMI 21.5
[2025-04-27] MEDS: methylPREDNISolone SOD SUCC 125 MG VIAL 40 MG IV PUSH ×3 (05:33→21:11)
[2025-04-27 05:56] LABS: Basophils Percent Auto 0.6 % (0.2-1.2); Eosinophils Percent Auto 0.1 % (0-4.4); Hematocrit 36.3 % (42.0-52.0); Hemoglobin 11.4 g/dL (14.0-18.0); Immature Granulocyte Absolute 0.02 K/mm3 (0.00-0.031); Immature Granulocyte Percent A 0.3 % (0-0.5); Lymphocytes Absolute Auto 0.39 K/mm3 (0.9-3.2); Lymphocytes Percent Auto 5.7 % (18.3-44.2); Mean Corpuscular HGB Conc 31.4 g/dl (32-36); Mean Corpuscular Hemoglobin 28.6 pg (26-34); Mean Platelet Volume 10.2 fl (7.4-10.4); Monocytes Absolute Auto 0.1 K/mm3 (0.1-0.6); Monocytes Percent Auto 1.6 % (2.6-8.5); Neutrophils Absolute Auto 6.3 K/mm3 (1.3-6.7); Neutrophils Percent Auto 91.7 % (45.5-73.1); Platelet Count Result 321 k/mm3 (150-375); Red Blood Count 3.99 M/mm3 (4.6-6.20); Red Cell Distribution Width 18.6 % (11.5-14.5); White Blood Count 6.8 K/mm3 (4.5-10.0)
[2025-04-27 06:07] LABS: Alanine Aminotransferase 10 U/L (6-50); Albumin Level 2.6 g/dL (3.5-5.1); Alkaline Phosphatase 97 U/L (38-126); Anion Gap 7 mmol/L (4-12); Aspartate Amino Transferase 30 U/L (17-59); Bilirubin,Total 0.9 mg/dL (0.2-1.3); Blood Urea Nitrogen 4 mg/dL (9-20); Calcium 7.4 mg/dL (8.4-10.2); Carbon Dioxide 23 mmol/L (22-30); Chloride 104 mmol/L (98-107); Estimated CRCL calculation 120 ml/min; Estimated Glomerular Filt Rate > 60; Glucose 158 mg/dL (65-110); Potassium 3.8 mmol/L (3.4-5.0); Sodium 134 mmol/L (137-145); Total Protein 5.3 g/dL (6.3-8.2)
[2025-04-27] MEDS: MESALAMINE 400 MG DELAYED RELEASE CAPSULE 800 MG PO ×3 (09:18→17:29)
[2025-04-27] MEDS: CHOLECALCIFEROL (VITAMIN D3) 125 MCG (5,000 UNITS) TABLET PO (09:20)
--- NOTE | 2025-04-27 09:53 | P.CONGI_ITS ---
Assessment and Plan Assessment and plan (1) Ulcerative colitis: Qualifiers: Ulcerative colitis location: ulcerative pancolitis Digestive disease complication type: without complication Qualified Code(s): K51.00 - Ulcerative (chronic) pancolitis without complications Code(s): K51.90 - Ulcerative colitis, unspecified, without complications Status: Acute (2) Diarrhea: Qualifiers: Diarrhea type: unspecified type Qualified Code(s): R19.7 - Diarrhea, unspecified Code(s): R19.7 - Diarrhea, unspecified Status: Acute (3) Incontinence of feces with fecal urgency: Code(s): R15.9 - Full incontinence of feces; R15.2 - Fecal urgency Status: Acute (4) Weight loss: Code(s): R63.4 - Abnormal weight loss Status: Acute (5) Appetite loss: Code(s): R63.0 - Anorexia Status: Acute (6) Failure to thrive: Qualifiers: Failure to thrive age range: in adult Qualified Code(s): R62.7 - Adult failure to thrive Status: Acute (7) Normocytic anemia: Code(s): D64.9 - Anemia, unspecified Status: Acute (8) Prostate cancer: Code(s): C61 - Malignant neoplasm of prostate Status: Chronic Plan 1. Ulcerative Colitis/diarrhea/fecal urgency/fecal incontinence/abnormal imaging digestive/prostate CA: Patient admitted to the emergency room yesterday with complaints of decreased appetite and diarrhea x1 week. Patient states that the diarrhea started after his 2nd course of antibiotics for a toe infection (cephalexin then doxycycline). Prior to antibiotics he was having formed non urgent bowel movements. Prior to admission the patient states that he was having nonstop diarrhea that was liquid, urgent with fecal incontinence. He states that he was unable to tell the difference between passing gas and having a liquid bowel movement. CT showed focal colitis at hepatic flexure in the distal colon extending to the level of the anastomosis no perforation or fluid noted. C diff negative yesterday. Initially diagnosed with ulcerative colitis in 2009. 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 Patient has been on mesalamine 3 times daily since diagnosis and colitis has been controlled. Patient's last colonoscopy October of 2024 showed inflammatory polyp noted at anastomosis site that was noncancerous without dysplasia. Prior to his last colonoscopy PET scan showed uptake in the sigmoid colon proximal to the suture line representing polyp versus colonic neoplasm. He is currently being treated for prostate cancer with Zytiga and prednisone 5 mg daily which is currently on hold given his recurrent toe infection. Since admission and receiving IV steroids and IV fluids his diarrhea has improved. He denies any bowel movement today. He denies any signs of rectal bleeding. Prior to admission the patient was prescribed Lomotil which she never started. He currently has Lomotil and Imodium on his med list for as needed use. * on IV steroids, continue * Continue mesalamine * Continue antidiarrheals as needed. * Okay to advance diet as there is no plan for endoscopic evaluation at this time 2. Decreased appetite/weight loss/failure to thrive: No known EGD Hx. Admits decreased appetite prior to admission but since starting IV steroids last night he states that he is now ?very hungry?. He admits to around 40 lb weight loss since his cancer diagnosis, currently being treated by Dr. Walsh. * Okay to advance diet * Weight loss to be managed by Oncology * If symptoms return may consider EGD as outpatient 3. Anemia: Patient with normocytic anemia. Labs showed WBC 7, HGB 11, HCT 36, MCV 91, platelets 321. No signs of active GI bleeding. * Primary care team to continue monitoring H&H and transfuse as needed to keep HGB > 7 Thank you very much for allowing me to share in the care of this very nice patient. This report may have been done utilizing a voice recognition system. Attempts have been made to correct errors. However, there may be uncorrected grammatical, spelling, and recognition errors present. GI Consult Note Consult date/time: 04/27/25 09:53 Reason for consult: Ulcerative Colitis HPI: Gume Roberson Jr. is a 74 year old male with PMSH of right bundle-branch block, COPD, cardiomegaly, nonrheumatic aortic valve stenosis, CAD, status post cardiac bypass, squamous cell carcinoma lung, status post pneumonectomy, colon surgery, prostate cancer. He presented to the ER yesterday with complaints of decreased appetite and diarrhea x1 week. GI has been consulted for ulcerative colitis. Patient was seen at [facility] 01/13/[address] Sung for ulcerative pancolitis at which time he was advised to continue mesalamine 3 times daily and no further colonoscopies were recommended. PET scan prior to last colonoscopy showed uptake in the sigmoid colon proximal to the suture line representing a polyp or a colonic neoplasm. Last colonoscopy October 2024 with an inflammatory polyp noted at anastomosis site that was not cancerous and without dysplasia. Colonoscopy in September 2013 demonstrated mild proctitis He was a former patient of Dr. Marroquin. Patient diagnosed with ulcerative colitis in 2009 symptoms began in 2008 presented initially with rectal bleeding, diarrhea and urgency. 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 Prior to presenting to the emergency room yesterday he states that he was having decreased appetite and diarrhea for approximately 1 week. Patient states that he was having near constant liquid urgent bowel movements with fecal incontinence. He states that he was unable to tell if he was passing gas or having a bowel movement. This diarrhea started after his 2nd course of antibiotics for a toe infection. He has loss significant weight around 40 lb since his cancer diagnosis. Currently denies any abdominal pain, nausea, vomiting, bloating, odynophagia, dysphagia, reflux, regurgitation. Denies constipation, hematochezia, or melena. Patient states that since his hospital admission and receiving IV steroids and IV fluids his diarrhea has improved. He denies any bowel movement today. He was previously on Xarelto and aspirin which he states he stopped around 1 month ago secondary to nose bleeds. He is a nondrinker and denies marijuana use. He quit smoking in 2004. Family history negative for CRC or for IBD. ENDOSCOPY HISTORY: EGD: No prior EGD COLONOSCOPY: October 2024 Findings: Inflammatory polyp at as stenosis site, no dysplasia or precancerous changes LABS AND STOOL STUDIES: Labs 04/27/2025: Sodium 134, potassium 3.8, BUN 4, creatinine 0.40, GFR >60, calcium 7.4, magnesium 2.0 WBC 7, Hgb 11, Hct 36, MCV 91, platelets 321 Total bilirubin 0.9, AST 30, ALT 10, Alkaline Phos 97, albumin 2.6, total protein 5.3 Labs 04/26/2025: Sodium 134, potassium 2.9, BUN 4, creatinine 0.44, GFR >60, lactic acid 0.9, calcium 7.4 WBC 8, Hgb 11, Hct 34, MCV 91, platelets 285, INR 1.3 Total bilirubin 0.9, AST 31, ALT 10, Alkaline Phos 90, albumin 2.4 CRP 8.0, lipase 35, procalcitonin 0.1 C diff negative IMAGING: CT abd/pelvis w/contrast 04/26/2025: IMPRESSION: Findings consistent with a focal colitis involving the hepatic flexure and the distal colon extending to the level of the anastomosis in the deep pelvis. No drainable fluid collection or gross perforation is present. Interval development of small bilateral pleural effusions with adjacent compressive atelectasis. Otherwise, no interval change from the previous examination dated 04/14/2025 PET scan 12/16/2024: IMPRESSION: 1. Heterogeneous increased PSMA uptake in the prostate consistent with primary prostate cancer with suspicion for local invasion into the bilateral seminal vesicles. 2. Multiple PSMA avid bone lesions and PSMA avid lymph nodes in the abdomen and pelvis consistent with metastatic disease. 3. Cholelithiasis. CT abd/pelvis w/contrast 06/06/2024: IMPRESSION: Multiple multiple bladder calculi No renal or ureteral calculus or hydroureteronephrosis No renal space occupying mass lesion Cholelithiasis Cardiomegaly Small right pleural effusion Status post sternotomy Review of Systems 2 Constitutional: Constitutional: Reports fatigue and Reports lethargy ENT: Reports as per HPI Cardiovascular: Cardiovascular: Reports as per HPI, Denies chest pain and Denies dyspnea Respiratory: Respiratory: Denies cough and Denies dyspnea Gastrointestinal: Gastrointestinal: Reports as per HPI, Denies hematochezia and Reports diarrhea Musculoskeletal: Musculoskeletal: Reports as per HPI Integumentary/Breasts: Skin/Breast: Reports as per HPI Psychiatric: Psychiatric: Reports as per HPI Endocrine: Endocrine: Reports no additional endocrine complaints Hematologic/Lymphatic: Hematologic/Lymphatic: Reports no additional hematologic/lymphatic complaints [facility] Past Medical History Medical History Allergic rhinitis Deviated nasal septum Anterior epistaxis Squamous cell carcinoma lung Anxiety Fistula Bundle branch block, right COPD (chronic obstructive pulmonary disease) Coronary artery disease Proctitis Ulcerative colitis Surgical History Surgical History Port-A-Cath in place 01/14/25 Placement right internal jugular vein Port-A-Cath using ultrasound and under fluoroscopy per Dr. rAenas History of lobectomy of lung S/P pneumonectomy H/O heart bypass surgery History of colon surgery Family History Family History Father Asthma Mother Acute myocardial infarction Son Carcinoma of colon Other Family history of cardiovascular disease Social History Social History Social History: Caffeine-tea Smoking packs per day: 2 Smoking cigarettes per day: 40.0 Years smoked: 35 Smoking pack-years: 70.00 Smoking status: Former smoker Second hand tobacco smoke exposure: No Alcohol intake: never Substance use: never Substance use type: does not use Do You Feel Safe in your Home?: Yes Lack of Transportation: No Lack of Food: Never True Current Housing: I Have Housing Concerned About Future Housing: No Difficulty Paying Gas/Electric Bills: No Difficulty Paying for Meds: No Currently Unemployed: No Education: Bachelor's Degree Difficulty w/ Childcare or Family Care: No Living arrangements: with family Additional living arrangements comments: Spiritual care concerns: No Meds Home Medications and Allergies Home Medications ?Medication ?Instructions ?Recorded ?Confirmed ?Type cholecalciferol (vitamin D3) 125 5,000 unit PO DAILY 10/17/19 04/26/25 History mcg (5,000 unit) capsule mesalamine 1.2 gram tablet,delayed 2.4 gm PO DAILY 10/17/19 04/26/25 History release (Lialda) metoprolol succinate 25 mg 25 mg PO HS 10/17/19 04/26/25 History tablet,extended release 24 hr (Toprol XL) multivitamin 1 tablet PO DAILY 10/17/19 04/26/25 History rivaroxaban 10 mg tablet (Xarelto) 10 mg PO HS 06/26/24 04/26/25 History fenofibrate 160 mg tablet See Rx Instructions .Route 12/01/24 04/26/25 Rx .COMPLEX #90 tabs abiraterone 250 mg tablet 1,000 mg PO DAILY 01/01/25 04/26/25 History prednisone 5 mg tablet 5 mg PO DAILY 01/01/25 04/26/25 History simvastatin 20 mg tablet (Zocor) 20 mg PO HS #90 tabs 02/06/25 04/26/25 Rx pregabalin 100 mg capsule (Lyrica) 100 mg PO Q12H 90 days #180 caps 02/16/25 04/26/25 Rx alprazolam 0.25 mg tablet (Xanax) 0.25 mg PO QHS PRN anxiety 04/26/25 04/26/25 History triamcinolone acetonide 0.1 % 1 applic topical PRN 04/26/25 04/26/25 History topical cream Allergies Allergy/AdvReac Type Severity Reaction Status Date / Time escitalopram Allergy Unknown Asthma Verified 04/17/25 15:15 sildenafil Allergy Unknown Hypotension Verified 04/17/25 15:15 Penicillins AdvReac Mild Diarrhea Verified 04/17/25 15:15 amoxicillin AdvReac Unknown Diarrhea Verified 04/17/25 15:15 ciprofloxacin AdvReac Unknown Diarrhea Verified 04/17/25 15:15 gemfibrozil AdvReac Unknown myalgias Verified 04/17/25 15:15 lactase AdvReac Unknown Nausea Verified 04/17/25 15:15 Vital Signs Vital Signs - 24 hr 04/26/25 13:07 04/26/25 13:10 04/26/25 15:21 Temperature 98.4 F Pulse Rate 93 94 100 Respiratory Rate 20 20 Blood Pressure 111/69 136/69 Pulse Oximetry 96 96 Oxygen Delivery Room Air 04/26/25 16:25 04/26/25 20:00 04/26/25 20:00 Temperature Pulse Rate 97 107 H Respiratory Rate 20 Blood Pressure 142/90 H Pulse Oximetry 100 Oxygen Delivery Room Air 04/26/25 20:29 04/27/25 00:00 04/27/25 04:00 Temperature 98.5 F Pulse Rate 109 H 97 102 H Respiratory Rate 16 Blood Pressure 135/63 Pulse Oximetry 97 Oxygen Delivery 04/27/25 05:36 Temperature 96.9 F L Pulse Rate 99 Respiratory Rate 16 Blood Pressure 117/66 Pulse Oximetry 95 Oxygen Delivery Exam 2 Const: General: cooperative, comfortable, no acute distress, well developed, ill appearing and thin Orientation/consciousness: oriented to person, oriented to place, oriented to time and patient oriented x3 HENMT: Head: normal to inspection, normocephalic and atraumatic Mouth: Yes Normal oral and palatal mucosa present and Yes moist mucous membranes Eyes: General: appearance normal, both eyes and all related structures C onjunctivae: conjunctivae normal Sclera: sclerae normal Pupils: Equal, round and reactive pupils present Neck: Neck: normal visual inspection Chest: Chest palpation & inspection: normal inspection of the chest Resp: Effort & Inspection: normal respiratory effort and able to speak in complete sentences Auscultation: clear to auscultation bilaterally Cardio: Jugular venous distension: no JVD Rate: regular rate Rhythm: r egular rhythm Heart sounds: S1 normal heart sound present and S2 normal heart sound present GI: Inspection: normal to inspection GI Palp: Yes Soft to palpation, No Firmness to palpation present (GI), No Tenderness to palpation present (GI), No Guarding due to palpation present (GI) and Yes No hepatosplenomegaly present Auscultation: abnormal bowel sounds (hyperactive ) Rectal Exam: deferred Skin: General skin exam: normal color and no rashes or lesions noted Neuro: General: oriented to person, oriented to place, oriented to time and patient oriented x3 Cranial nerves: Yes Equal, round and reactive pupils present Speech: normal speech Extrem: General: normal to inspection and no clubbing, cyanosis or edema Psych: Appearance: grossly normal and well kempt Affect: normal affect Results Labs 04/27/25 05:09 04/27/25 05:09 Labs: Short CBC 04/26/25 04/27/25 Range/Units 13:12 05:09 WBC 8.2 6.8 (4.5-10.0) K/mm3 Hgb 10.5 L 11.4 L (14.0-18.0) g/dL Hct 33.5 L 36.3 L (42.0-52.0) % Plt Count 285 321 (150-375) k/mm3 BMP 04/26/25 04/27/25 13:12 05:09 Sodium 134 L 134 L Potassium 2.9 L 3.8 Chloride 104 104 Carbon Dioxide 26 23 BUN 4 L D 4 L Creatinine 0.44 L 0.40 L Glucose 78 158 H Calcium 7.4 L 7.4 L Liver Function 04/26/25 04/27/25 Range/Units 13:12 05:09 Total Bilirubin 0.9 0.9 (0.2-1.3) mg/dL AST 31 30 (17-59) U/L ALT 10 10 (6-50) U/L Alkaline Phosphatase 90 97 (38-126) U/L Albumin 2.4 L 2.6 L (3.5-5.1) g/dL Urine 04/26/25 Range/Units 13:48 Urine Color Dark yellow (Yellow) Urine Appearance Clear (Clear) Urine pH 6.0 (5.0-9.0) Ur Specific [place] 1.021 (1.001-1.035) Urine Protein Trace (Negative) mg/dL Urine Glucose (UA) Negative (Negative) mg/dL
[2025-04-27] MEDS: DEXTROSE 5%/LACTATED RINGERS 1,000 ML 65 ML IV CONT (11:40)
--- NOTE | 2025-04-27 14:44 | PM.IMPN ---
Progress Note: A&P Assessment and Plan (1) Fatigue: Code(s): R53.83 - Other fatigue Status: Acute Assessment and Plan: -Severe acute fatigue related to diarrhea, hypokalemia, cancer undergoing chemotherapy -Unable to care for self at home right now (2) Ulcerative colitis: Qualifiers: Ulcerative colitis location: ulcerative pancolitis Digestive disease complication type: without complication Qualified Code(s): K51.00 - Ulcerative (chronic) pancolitis without complications Code(s): K51.90 - Ulcerative colitis, unspecified, without complications Status: Acute Assessment and Plan: -Focal colitis from hepatic flexure to anastamosis site, normal WBC Patient diagnosed on Ulcerative colitis in 2009 Symptoms improved with IV steroids GI eval noted continue Mesalamine and IV steroids, advance diet per GI GI following (3) Hypokalemia: Code(s): E87.6 - Hypokalemia Status: Chronic Assessment and Plan: replaced, K 3.8 today (4) Unspecified sleep apnea: Code(s): G47.30 - Sleep apnea, unspecified Status: Acute Assessment and Plan: -Offer AutoPAP if patient wants, bring home CPAP if available (5) Non-small cell lung cancer: Code(s): C34.90 - Malignant neoplasm of unspecified part of unspecified bronchus or lung Status: Acute Assessment and Plan: -Getting weekly chemotherapy with Dr. Walsh Chemotherapy on hold due to toe cellulitis (6) Secondary malignant neoplasm of bone: Code(s): C79.51 - Secondary malignant neoplasm of bone Status: Acute Assessment and Plan: -See above (7) Prostate cancer: Code(s): C61 - Malignant neoplasm of prostate Status: Chronic Assessment and Plan: -See above Plan DVT prophylaxis on Sq Lovenox Subjective Date/time seen: 04/27/25 14:44 Interval history: Comfortable at bedside Gi eval noted Review of Systems Review of Systems: All systems reviewed & are unremarkable except as noted in HPI and below Exam Narrative: APPEARANCE: Frail and ill-appearing HEENT: normocephalic, atraumatic, PERRLA/EOMI NECK: Supple. No adenopathy, no masses. RESPIRATORY: Airway patent, respirations nonlabored. Clear to auscultation bilaterally, no rales, rhonchi, wheezing. CARDIOVASCULAR: Regular rate and rhythm without murmurs rubs or gallops. ABDOMINAL: Soft, nontender, nondistended, normal bowel sounds MUSCULOSKELETAL: Moves all extremities. Strength/ROM intact, No edema, No calf tenderness. NEURO: Alert. Cranial nerves II through XII intact. Good gait. Good coordination SKIN: Warm, dry. Normal Color Objective Data Vital Signs Vital Signs: Vital Signs - 24 hr 04/26/25 15:21 04/26/25 16:25 04/26/25 20:00 Temperature Pulse Rate 100 97 Respiratory Rate 20 20 Blood Pressure 136/69 142/90 H Pulse Oximetry 96 100 Oxygen Delivery Room Air 04/26/25 20:00 04/26/25 20:29 04/27/25 00:00 Temperature 98.5 F Pulse Rate 107 H 109 H 97 Respiratory Rate 16 Blood Pressure 135/63 Pulse Oximetry 97 Oxygen Delivery 04/27/25 04:00 04/27/25 05:36 04/27/25 08:00 Temperature 96.9 F L Pulse Rate 102 H 99 97 Respiratory Rate 16 Blood Pressure 117/66 Pulse Oximetry 95 Oxygen Delivery 04/27/25 08:00 04/27/25 12:00 Temperature Pulse Rate 99 Respiratory Rate Blood Pressure Pulse Oximetry 95 Oxygen Delivery Room Air Intake/Output Intake/Output: Intake & Output 04/24/25 04/25/25 04/26/25 04/27/25 23:59 23:59 23:59 23:59 Intake Total 1100 1133.8 Output Total 200 Balance 1100 933.8 Meds/Results Medications: Active Medications Generic Name Dose Route Start Last Admin Trade Name Freq PRN Reason Stop Dose Admin Acetaminophen 650 mg 04/26/25 16:01 Acetaminophen 325 Mg Tablet PO Q4H PRN Pain or Fever Alprazolam 0.25 mg 04/26/25 21:04 Alprazolam (*Crx) 0.25 Mg Tablet PO QHS PRN anxiety Diphenoxylate HCl/Atropine 1 tablet 04/26/25 21:22 Diphenoxylate/Atropine (*Crx) 2.5 Mg Tablet PO Q3H PRN Diarrhea Dextrose/Lactated Ringer's 1,000 mls @ 65 mls/hr 04/26/25 21:25 04/27/25 11:40 Dextrose 5%/Lactated Ringers IV CONT 65 mls/hr .[id number] DARIEN Administration Loperamide HCl 2 mg 04/26/25 15:52 Loperamide Hcl 2 Mg Capsule PO PRN PRN Diarrhea Mesalamine 800 mg 04/27/25 09:00 04/27/25 13:38 Mesalamine 400 Mg Delayed Release Capsule PO 800 mg TID DARIEN Administration Methylprednisolone Sodium Succinate 40 mg 04/26/25 22:00 04/27/25 13:38 Methylprednisolone Sod Succ 125 Mg Vial IV PUSH 40 mg Q8HR DARIEN Administration Metoprolol Succinate 25 mg 04/26/25 21:10 04/26/25 21:53 Metoprolol Succinate Ext Rel 25 Mg Tabcr PO 25 mg HS DARIEN Administration Ondansetron HCl 4 mg 04/26/25 15:42 Ondansetron Inj 4 Mg/2 Ml Vial IV PUSH Q4H PRN Nausea Simvastatin 20 mg 04/26/25 21:05 04/26/25 21:53 Simvastatin 20 Mg Tablet PO 20 mg HS DARIEN Administration Triamcinolone Acetonide 1 applic 04/26/25 21:06 Triamcinolone Acet 0.1% Cream 15 Gm Tube TOPICAL PRN PRN rash Vitamin D 125 mcg 04/27/25 09:00 04/27/25 09:20 Cholecalciferol (Vitamin D3) 125 Mcg (5,000 Units) Tablet PO 125 mcg DAILY DARIEN Administration Radiology Results: ITS Impressions Abdomen/Pelvis CT 04/26/25 15:02 IMPRESSION: Findings consistent with a focal colitis involving the hepatic flexure and the distal colon extending to the level of the anastomosis in the deep pelvis. No drainable fluid collection or gross perforation is present. Interval development of small bilateral pleural effusions with adjacent compressive atelectasis. Otherwise, no interval change from the previous examination dated 04/14/2025 Labs Labs: Laboratory Results - last 24 hr 04/26/25 04/26/25 04/26/25 13:12 13:48 21:53 WBC RBC Hgb Hct MCV MCH MCHC RDW Plt Count MPV Immature Gran % (Auto) Neut % (Auto) Lymph % (Auto) [place] % (Auto) Eos % (Auto) Baso % (Auto) Lymph # (Auto) [place] # (Auto) Eos # (Auto) Baso # (Auto) Abs Immat Gran (auto) Absolute Neuts (auto) Absolute Nucleated RBC Nucleated RBC % ESR 35 H Sodium Potassium Chloride Carbon Dioxide Anion Gap BUN Creatinine Estim Creat Clear Calc Estimated GFR Glucose Calcium Magnesium 1.8 Total Bilirubin AST ALT Alkaline Phosphatase C-Reactive Protein 8.0 H Total Protein Albumin Procalcitonin 0.1 C. difficile (PCR) Negative 04/27/25 05:09 WBC 6.8 RBC 3.99 L Hgb 11.4 L Hct 36.3 L MCV 91.0 MCH 28.6 MCHC 31.4 L RDW 18.6 H Plt Count 321 MPV 10.2 Immature Gran % (Auto) 0.3 Neut % (Auto) 91.7 H Lymph % (Auto) 5.7 L [place] % (Auto) 1.6 L Eos % (Auto) 0.1 Baso % (Auto) 0.6 Lymph # (Auto) 0.39 L [place] # (Auto) 0.1 Eos # (Auto) 0.0 Baso # (Auto) 0.0 Abs Immat Gran (auto) 0.02 Absolute Neuts (auto) 6.3 Absolute Nucleated RBC 0.000 Nucleated RBC % 0.0 ESR Sodium 134 L Potassium 3.8 Chloride 104 Carbon Dioxide 23 Anion Gap 7 BUN 4 L Creatinine 0.40 L Estim Creat Clear Calc 120 Estimated GFR > 60 Glucose 158 H Calcium 7.4 L Magnesium 2.0 Total Bilirubin 0.9 AST 30 ALT 10 Alkaline Phosphatase 97 C-Reactive Protein Total Protein 5.3 L Albumin 2.6 L Procalcitonin C. difficile (PCR) Quality VTE Prophylaxis VTE prophylaxis: mechanical ordered
[2025-04-27] MEDS: LOPERAMIDE HCL 2 MG CAPSULE PO ×2 (15:15→23:20)
--- NOTE | 2025-04-27 18:33 | WPDONCCN ---
Assessment and Plan Assessment and plan (1) Prostate cancer: Code(s): C61 - Malignant neoplasm of prostate Status: Chronic Assessment and Plan: metastatic prostate cancer diagnosed in October of 2024. PET scan done in December 2024 showed PSMA avid lymphadenopathy consistent with metastatic disease. Patient started palliative chemotherapy with Taxotere in January of 2025 along with Lupron and Zytiga. Chemotherapy was placed on hold due to to infection. Patient was admitted to the hospital with generalized weakness along with tiredness and fatigue. Diarrhea was likely secondary to chemotherapy and antibiotic use. CT scan finding noted. Patient will follow-up in the office for resumption of chemotherapy. I instructed him to hold Zytiga as well while he is dealing with the diarrhea. Follow-up after discharge. HPI Data of Consult Date/Time: 04/27/25 18:33 Requesting Physician: Tucker Mejia MD Primary Care Provider: Maykel Gramajo MD Consult Narrative Narrative: Gume Roebrson Jr. is a 74 year old male History of metastatic prostate cancer has been on chemotherapy with Taxotere since January 2025 along with Lupron and Zytiga came into the hospital with generalized weakness tiredness and fatigue and diarrhea. Patient was started on Keflex and then switched to doxycycline for toe infection. CT scan abdomen showed finding consistent with colitis. He denies any other complaints. Review of Systems Review of Systems: review of system as per HPI otherwise negative [facility] Past Medical History Medical History Allergic rhinitis Deviated nasal septum Anterior epistaxis Squamous cell carcinoma lung Anxiety Fistula Bundle branch block, right COPD (chronic obstructive pulmonary disease) Coronary artery disease Proctitis Ulcerative colitis Surgical History Surgical History Port-A-Cath in place 01/14/25 Placement right internal jugular vein Port-A-Cath using ultrasound and under fluoroscopy per Dr. Arenas History of lobectomy of lung S/P pneumonectomy H/O heart bypass surgery History of colon surgery Family History Family History Father Asthma Mother Acute myocardial infarction Son Carcinoma of colon Other Family history of cardiovascular disease Social History Social History Social History: Caffeine-tea Smoking packs per day: 2 Smoking cigarettes per day: 40.0 Years smoked: 35 Smoking pack-years: 70.00 Smoking status: Former smoker Second hand tobacco smoke exposure: No Alcohol intake: never Substance use: never Substance use type: does not use Do You Feel Safe in your Home?: Yes Lack of Transportation: No Lack of Food: Never True Current Housing: I Have Housing Concerned About Future Housing: No Difficulty Paying Gas/Electric Bills: No Difficulty Paying for Meds: No Currently Unemployed: No Education: Bachelor's Degree Difficulty w/ Childcare or Family Care: No Living arrangements: with family Additional living arrangements comments: Spiritual care concerns: No Meds Home Medications and Allergies Home Medications ?Medication ?Instructions ?Recorded ?Confirmed ?Type cholecalciferol (vitamin D3) 125 5,000 unit PO DAILY 10/17/19 04/26/25 History mcg (5,000 unit) capsule mesalamine 1.2 gram tablet,delayed 2.4 gm PO DAILY 10/17/19 04/26/25 History release (Lialda) metoprolol succinate 25 mg 25 mg PO HS 10/17/19 04/26/25 History tablet,extended release 24 hr (Toprol XL) multivitamin 1 tablet PO DAILY 10/17/19 04/26/25 History rivaroxaban 10 mg tablet (Xarelto) 10 mg PO HS 06/26/24 04/26/25 History fenofibrate 160 mg tablet See Rx Instructions .Route 12/01/24 04/26/25 Rx .COMPLEX #90 tabs abiraterone 250 mg tablet 1,000 mg PO DAILY 01/01/25 04/26/25 History prednisone 5 mg tablet 5 mg PO DAILY 01/01/25 04/26/25 History simvastatin 20 mg tablet (Zocor) 20 mg PO HS #90 tabs 02/06/25 04/26/25 Rx pregabalin 100 mg capsule (Lyrica) 100 mg PO Q12H 90 days #180 caps 02/16/25 04/26/25 Rx alprazolam 0.25 mg tablet (Xanax) 0.25 mg PO QHS PRN anxiety 04/26/25 04/26/25 History triamcinolone acetonide 0.1 % 1 applic topical PRN 04/26/25 04/26/25 History topical cream Allergies Allergy/AdvReac Type Severity Reaction Status Date / Time escitalopram Allergy Unknown Asthma Verified 04/17/25 15:15 sildenafil Allergy Unknown Hypotension Verified 04/17/25 15:15 Penicillins AdvReac Mild Diarrhea Verified 04/17/25 15:15 amoxicillin AdvReac Unknown Diarrhea Verified 04/17/25 15:15 ciprofloxacin AdvReac Unknown Diarrhea Verified 04/17/25 15:15 gemfibrozil AdvReac Unknown myalgias Verified 04/17/25 15:15 lactase AdvReac Unknown Nausea Verified 04/17/25 15:15 Vital Signs Vital Signs - 24 hr 04/26/25 20:00 04/26/25 20:00 04/26/25 20:29 Temperature 36.9 C Pulse Rate 107 H 109 H Respiratory Rate 16 Blood Pressure 135/63 Pulse Oximetry 97 Oxygen Delivery Room Air 04/27/25 00:00 04/27/25 04:00 04/27/25 05:36 Temperature 36.1 C L Pulse Rate 97 102 H 99 Respiratory Rate 16 Blood Pressure 117/66 Pulse Oximetry 95 Oxygen Delivery 04/27/25 08:00 04/27/25 08:00 04/27/25 12:00 Temperature Pulse Rate 97 99 Respiratory Rate Blood Pressure Pulse Oximetry 95 Oxygen Delivery Room Air 04/27/25 14:00 Temperature 36.8 C Pulse Rate 102 H Respiratory Rate 18 Blood Pressure 110/56 L Pulse Oximetry 97 Oxygen Delivery Exam Narrative: lungs are clear to auscultation bilaterally cardiovascular regular rate rhythm no murmurs abdomen soft nontender nondistended extremities no edema Results Labs 04/27/25 05:09 04/27/25 05:09 Labs: Short CBC 04/27/25 Range/Units 05:09 WBC 6.8 (4.5-10.0) K/mm3 Hgb 11.4 L (14.0-18.0) g/dL Hct 36.3 L (42.0-52.0) % Plt Count 321 (150-375) k/mm3 [facility] 04/27/25 05:09 Sodium 134 L Potassium 3.8 Chloride 104 Carbon Dioxide 23 BUN 4 L Creatinine 0.40 L Glucose 158 H Calcium 7.4 L Liver Function 04/27/25 Range/Units 05:09 Total Bilirubin 0.9 (0.2-1.3) mg/dL AST 30 (17-59) U/L ALT 10 (6-50) U/L Alkaline Phosphatase 97 (38-126) U/L Albumin 2.6 L (3.5-5.1) g/dL
[2025-04-27] MEDS: METOPROLOL SUCCINATE EXT REL 25 MG TABCR PO (21:11)
[2025-04-27] MEDS: ALPRAZolam (*CRX) 0.25 MG TABLET PO (21:12)
[2025-04-27] MEDS: SIMVASTATIN 20 MG TABLET PO (21:12)
[2025-04-27] MEDS: SALINE LOCK FLUSH 2 ML IV PUSH (21:12)
[2025-04-28] VITALS: PULSE 104
[2025-04-28 04:00] VITALS: PULSE 102
[2025-04-28] MEDS: methylPREDNISolone SOD SUCC 125 MG VIAL 40 MG IV PUSH ×2 (05:34→13:25)
[2025-04-28] MEDS: SALINE LOCK FLUSH 2 ML IV PUSH (05:35)
[2025-04-28 06:00] VITALS: BP 111/67; PULSE 101; RESP 16; TEMP 36.1; O2SAT 95
[2025-04-28 06:01] LABS: Basophils Percent Auto 0.1 % (0.2-1.2); Hematocrit 32.9 % (42.0-52.0); Hemoglobin 10.4 g/dL (14.0-18.0); Immature Granulocyte Percent A 0.7 % (0-0.5); Lymphocytes Absolute Auto 0.73 K/mm3 (0.9-3.2); Lymphocytes Percent Auto 4.9 % (18.3-44.2); Mean Corpuscular HGB Conc 31.6 g/dl (32-36); Mean Corpuscular Hemoglobin 28.7 pg (26-34); Mean Corpuscular Volume 90.9 fl (80-100); Monocytes Absolute Auto 0.8 K/mm3 (0.1-0.6); Monocytes Percent Auto 5.7 % (2.6-8.5); Neutrophils Absolute Auto 13.1 K/mm3 (1.3-6.7); Neutrophils Percent Auto 88.6 % (45.5-73.1); Platelet Count Result 327 k/mm3 (150-375); Red Blood Count 3.62 M/mm3 (4.6-6.20); Red Cell Distribution Width 18.4 % (11.5-14.5); White Blood Count 14.8 K/mm3 (4.5-10.0)
[2025-04-28 06:24] LABS: Alanine Aminotransferase 12 U/L (6-50); Albumin Level 2.7 g/dL (3.5-5.1); Alkaline Phosphatase 81 U/L (38-126); Anion Gap 5 mmol/L (4-12); Aspartate Amino Transferase 28 U/L (17-59); Bilirubin,Total 0.6 mg/dL (0.2-1.3); Blood Urea Nitrogen 12 mg/dL (9-20); Calcium 7.5 mg/dL (8.4-10.2); Carbon Dioxide 24 mmol/L (22-30); Chloride 104 mmol/L (98-107); Estimated CRCL calculation 117 ml/min; Estimated Glomerular Filt Rate > 60; Glucose 152 mg/dL (65-110); Magnesium 2.1 mg/dL (1.6-2.3); Potassium 3.8 mmol/L (3.4-5.0); Sodium 133 mmol/L (137-145); Total Protein 5.3 g/dL (6.3-8.2)
--- NOTE | 2025-04-28 06:52 | PM.IMPN ---
Progress Note: A&P Assessment and Plan (1) Fatigue: Code(s): R53.83 - Other fatigue Status: Acute Assessment and Plan: -Severe acute fatigue related to diarrhea, hypokalemia, cancer undergoing chemotherapy -Unable to care for self at home right now (2) Ulcerative colitis: Qualifiers: Ulcerative colitis location: ulcerative pancolitis Digestive disease complication type: without complication Qualified Code(s): K51.00 - Ulcerative (chronic) pancolitis without complications Code(s): K51.90 - Ulcerative colitis, unspecified, without complications Status: Acute Assessment and Plan: -Focal colitis from hepatic flexure to anastamosis site, normal WBC Patient diagnosed on Ulcerative colitis in 2009 Symptoms improved with IV steroids GI eval noted continue Mesalamine and IV steroids, advance diet per GI GI following (3) Hypokalemia: Code(s): E87.6 - Hypokalemia Status: Chronic Assessment and Plan: replaced, K 3.8 today (4) Unspecified sleep apnea: Code(s): G47.30 - Sleep apnea, unspecified Status: Acute Assessment and Plan: -Offer AutoPAP if patient wants, bring home CPAP if available (5) Non-small cell lung cancer: Code(s): C34.90 - Malignant neoplasm of unspecified part of unspecified bronchus or lung Status: Acute Assessment and Plan: -Getting weekly chemotherapy with Dr. Walsh Chemotherapy on hold due to toe cellulitis (6) Secondary malignant neoplasm of bone: Code(s): C79.51 - Secondary malignant neoplasm of bone Status: Acute Assessment and Plan: -See above (7) Prostate cancer: Code(s): C61 - Malignant neoplasm of prostate Status: Chronic Assessment and Plan: -See above Plan DVT prophylaxis on Sq Lovenox Subjective Date/time seen: 04/28/25 06:52 Interval history: Comfortable at bedside Gi eval noted Review of Systems Review of Systems: All systems reviewed & are unremarkable except as noted in HPI and below Exam Narrative: APPEARANCE: Frail and ill-appearing HEENT: normocephalic, atraumatic, PERRLA/EOMI NECK: Supple. No adenopathy, no masses. RESPIRATORY: Airway patent, respirations nonlabored. Clear to auscultation bilaterally, no rales, rhonchi, wheezing. CARDIOVASCULAR: Regular rate and rhythm without murmurs rubs or gallops. ABDOMINAL: Soft, nontender, nondistended, normal bowel sounds MUSCULOSKELETAL: Moves all extremities. Strength/ROM intact, No edema, No calf tenderness. NEURO: Alert. Cranial nerves II through XII intact. Good gait. Good coordination SKIN: Warm, dry. Normal Color Objective Data Vital Signs Vital Signs: Vital Signs - 24 hr 04/27/25 08:00 04/27/25 08:00 04/27/25 12:00 Temperature Pulse Rate 97 99 Respiratory Rate Blood Pressure Pulse Oximetry 95 Oxygen Delivery Room Air 04/27/25 14:00 04/27/25 16:00 04/27/25 20:00 Temperature 98.2 F Pulse Rate 102 H 100 Respiratory Rate 18 Blood Pressure 110/56 L Pulse Oximetry 97 Oxygen Delivery Room Air 04/27/25 20:00 04/27/25 20:56 04/28/25 00:00 Temperature 97.0 F L Pulse Rate 99 99 104 H Respiratory Rate 16 Blood Pressure 122/57 L Pulse Oximetry 98 Oxygen Delivery 04/28/25 04:00 04/28/25 06:00 Temperature 97.0 F L Pulse Rate 102 H 101 H Respiratory Rate 16 Blood Pressure 111/67 Pulse Oximetry 95 Oxygen Delivery Intake/Output Intake/Output: Intake & Output 04/25/25 04/26/25 04/27/25 04/28/25 23:59 23:59 23:59 23:59 Intake Total 1100 1573.8 400 Output Total 200 Balance 1100 1373.8 400 Meds/Results Medications: Active Medications Generic Name Dose Route Start Last Admin Trade Name Freq PRN Reason Stop Dose Admin Acetaminophen 650 mg 04/26/25 16:01 Acetaminophen 325 Mg Tablet PO Q4H PRN Pain or Fever Alprazolam 0.25 mg 04/27/25 21:00 04/27/25 21:12 Alprazolam (*Crx) 0.25 Mg Tablet PO 0.25 mg QHS DARIEN Administration Diphenoxylate HCl/Atropine 1 tablet 04/26/25 21:22 Diphenoxylate/Atropine (*Crx) 2.5 Mg Tablet PO Q3H PRN Diarrhea Enoxaparin Sodium 40 mg 04/28/25 09:00 Enoxaparin 40 Mg/0.4 Ml Syringe SUB-Q DAILY DARIEN Loperamide HCl 2 mg 04/27/25 19:12 04/27/25 23:20 Loperamide Hcl 2 Mg Capsule PO 2 mg Q6-8H PRN Administration Diarrhea Mesalamine 800 mg 04/27/25 09:00 04/27/25 17:29 Mesalamine 400 Mg Delayed Release Capsule PO 800 mg TID DARIEN Administration Methylprednisolone Sodium Succinate 40 mg 04/26/25 22:00 04/28/25 05:34 Methylprednisolone Sod Succ 125 Mg Vial IV PUSH 40 mg Q8HR DARIEN Administration Metoprolol Succinate 25 mg 04/26/25 21:10 04/27/25 21:11 Metoprolol Succinate Ext Rel 25 Mg Tabcr PO 25 mg HS DARIEN Administration Ondansetron HCl 4 mg 04/26/25 15:42 Ondansetron Inj 4 Mg/2 Ml Vial IV PUSH Q4H PRN Nausea Simvastatin 20 mg 04/26/25 21:05 04/27/25 21:12 Simvastatin 20 Mg Tablet PO 20 mg HS DARIEN Administration Sodium Chloride 2 ml 04/27/25 22:00 04/28/25 05:35 Saline Lock Flush IV PUSH 2 ml Q8HR DARIEN Administration Triamcinolone Acetonide 1 applic 04/26/25 21:06 Triamcinolone Acet 0.1% Cream 15 Gm Tube TOPICAL PRN PRN rash Vitamin D 125 mcg 04/27/25 09:00 04/27/25 09:20 Cholecalciferol (Vitamin D3) 125 Mcg (5,000 Units) Tablet PO 125 mcg DAILY DARIEN Administration Radiology Results: ITS Impressions Abdomen/Pelvis CT 04/26/25 15:02 IMPRESSION: Findings consistent with a focal colitis involving the hepatic flexure and the distal colon extending to the level of the anastomosis in the deep pelvis. No drainable fluid collection or gross perforation is present. Interval development of small bilateral pleural effusions with adjacent compressive atelectasis. Otherwise, no interval change from the previous examination dated 04/14/2025 Labs Labs: Laboratory Results - last 24 hr 04/28/25 05:32 WBC 14.8 H RBC 3.62 L Hgb 10.4 L Hct 32.9 L MCV 90.9 MCH 28.7 MCHC 31.6 L RDW 18.4 H Plt Count 327 MPV 10.0 Immature Gran % (Auto) 0.7 H Neut % (Auto) 88.6 H Lymph % (Auto) 4.9 L [place] % (Auto) 5.7 Eos % (Auto) 0.0 Baso % (Auto) 0.1 L Lymph # (Auto) 0.73 L [place] # (Auto) 0.8 H Eos # (Auto) 0.0 Baso # (Auto) 0.0 Abs Immat Gran (auto) 0.10 H Absolute Neuts (auto) 13.1 H Absolute Nucleated RBC 0.000 Nucleated RBC % 0.0 Sodium 133 L Potassium 3.8 Chloride 104 Carbon Dioxide 24 Anion Gap 5 BUN 12 D Creatinine 0.41 L Estim Creat Clear Calc 117 Estimated GFR > 60 Glucose 152 H Calcium 7.5 L Magnesium 2.1 Total Bilirubin 0.6 AST 28 ALT 12 Alkaline Phosphatase 81 Total Protein 5.3 L Albumin 2.7 L Quality VTE Prophylaxis VTE prophylaxis: mechanical ordered
--- NOTE | 2025-04-28 07:21 | P.CDI_ITS ---
CDI Query Clarification Request BMI: 21.6 Nutritional Diagnostic Statement: Please refer to the comprehensive nutrition assessment for further information. If you agree with diagnosis of Moderate protein calorie malnutrition related to inadequate energy intake as evidenced by a significant weight loss of -6.5% x 1 month, reduced po intake for greater than 1 month, and NFPE findings for moderate subcutaneous fat loss (cheeks) and moderate muscle wasting (temples, clavicle). Please specify severity if known: * Mild * Moderate * Severe * Other/Unknown <Dipti Marley RN - Last Filed: 04/28/25 07:23> Clarified Diagnosis Clarified Diagnosis: moderate as noted above <Annette Salas APRN - Last Filed: 04/28/25 10:04>
[2025-04-28 08:00] VITALS: PULSE 109
[2025-04-28] MEDS: MESALAMINE 400 MG DELAYED RELEASE CAPSULE 800 MG PO (09:30)
[2025-04-28] MEDS: CHOLECALCIFEROL (VITAMIN D3) 125 MCG (5,000 UNITS) TABLET PO (09:31)
[2025-04-28] MEDS: LOPERAMIDE HCL 2 MG CAPSULE PO (09:45)
--- NOTE | 2025-04-28 10:20 | PM.DS ---
DS: Admitting Diagnosis Discharge Date 04/28/2025 Admitting Diagnosis fatigue, ulcerative colitis hypokalemia metastatic prostate cancer DS: Discharge Diagnosis Discharge Diagnosis (1) Fatigue: Code(s): R53.83 - Other fatigue Status: Acute Assessment and Plan: -Severe acute fatigue related to diarrhea, hypokalemia, cancer undergoing chemotherapy -improved with IV steroids, IV fluids, oral intake (2) Ulcerative colitis: Qualifiers: Digestive disease complication type: without complication Ulcerative colitis location: ulcerative pancolitis Qualified Code(s): K51.00 - Ulcerative (chronic) pancolitis without complications Code(s): K51.90 - Ulcerative colitis, unspecified, without complications Status: Acute Assessment and Plan: -Focal colitis from hepatic flexure to anastamosis site, normal WBC Patient diagnosed on Ulcerative colitis in 2009 Symptoms improved with IV steroids - will continue a taper GI eval - continue Mesalamine and IV steroids, advanced diet per GI, did well. (3) Hypokalemia: Code(s): E87.6 - Hypokalemia Status: Chronic Assessment and Plan: replaced, WNL at this time (4) Unspecified sleep apnea: Code(s): G47.30 - Sleep apnea, unspecified Status: Acute Assessment and Plan: - home CPAP to continue per home settings (5) Non-small cell lung cancer: Code(s): C34.90 - Malignant neoplasm of unspecified part of unspecified bronchus or lung Status: Acute Assessment and Plan: -Getting weekly chemotherapy with Dr. Walsh Chemotherapy on hold due to toe cellulitis (6) Secondary malignant neoplasm of bone: Code(s): C79.51 - Secondary malignant neoplasm of bone Status: Acute Assessment and Plan: -See above (7) Prostate cancer: Code(s): C61 - Malignant neoplasm of prostate Status: Chronic Assessment and Plan: -See above Plan DVT prophylaxis on Sq Lovenox DS: Summary Hospital Course Reason for hospitalization: fatigue ulcerative colitis hypokalemia Hospital Course: This is a 74-year-old male patient with medical history of metastatic prostate cancer diagnosed in October of 2024. PET scan done in December 2024 showed PSMA avid lymphadenopathy consistent with metastatic disease. Patient started palliative chemotherapy with Taxotere in January of 2025 along with Lupron and Zytiga. Chemotherapy was placed on hold due to to infection, presented to the hospital ER for c/o fatigue and diarrhea. Patient stated that 5 days ago he started having significant diarrhea numerous times per day. He denies nausea or vomiting but states that everything he puts on his stomach makes him have near immediate diarrhea output. He states this got worse yesterday and has continued pretty bad throughout the day today. Patient had taken Imodium around 6:00 a.m. this morning but it did not seem to help. He came to the emergency department where workup showed normal white blood cell count, chronic anemia, hypokalemia of 2.9, mild hyponatremia at 1:34 a.m. and mild hypocalcemia 7.4. Urinalysis showed 1+ ketones 1+ bilirubin but no signs to indicate infection. Stool was sent and negative for C diff. COVID flu and RSV testing was also negative. Patient received IV fluids and potassium in the emergency department. On admission I added magnesium testing with Mag level of 1.8. Patient received 1 g IV magnesium to try to help the potassium absorb better. CT scan of the abdomen and pelvis showed focal colitis of the hepatic flexure to the anastomosis site. CRP of 8, ESR of 35 and procalcitonin of 0.1. Do not suspect bacterial colitis at this time. 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 Additional loperamide which was also not helpful. Mesalamine is not available the patient has taken that before. Added PRN Lomotil to orders. Patient requested IV fluids since he has not been able to eat/drink anything without causing diarrhea. Started D5LR at 65 mL/hr and did well. held Zytega while in hospital. Did well. Labs improved and patient was pain free. Patient reported no further diarrhea. He stated he was able to eat, nursing staff do report good appetite. Diet was advanced without any abdominal pain, N/V/D. patient is able to ambulate without fatigue. Diarrhea was likely secondary to chemotherapy and antibiotic use. CT scan finding noted. Patient will follow-up in the GI and Oncology office for resumption of chemotherapy. patient was able to ambulate and tolerate full soft diet. He was comfortable with discharge. Educated the patient to increase fluids, continue with your prednisone taper as prescribed. Follow up with your Oncologist this week, call and make appointment. instructed him to hold Zytiga as well while he is dealing with the diarrhea. Call your GI specialist, make appointment to be seen in the next 1-2 weeks. Soft high fiber diet- bland. avoid heavy greasy spicy foods. Return immediately to ER with any worrisome sign or symptom. Stop Zytega for now. Restart when Oncologist allows. answered all questions to satisfaction, agreeable to plan. Status at Discharge Functional status at discharge: independent ambulation Overall status at discharge: patient is back to baseline Time Spent with Patient Time attestation: Total time spent providing and/or coordinating discharge services: Time spent: Greater than 30 minutes Exam Narrative: APPEARANCE: Frail and ill-appearing HEENT: normocephalic, atraumatic, PERRLA/EOMI NECK: Supple. No adenopathy, no masses. RESPIRATORY: Airway patent, respirations nonlabored. Clear to auscultation bilaterally, no rales, rhonchi, wheezing. CARDIOVASCULAR: Regular rate and rhythm without murmurs rubs or gallops. ABDOMINAL: Soft, nontender, nondistended, normal bowel sounds MUSCULOSKELETAL: Moves all extremities. Strength/ROM intact, No edema, No calf tenderness. NEURO: Alert. Cranial nerves II through XII intact. Good gait. Good coordination SKIN: Warm, dry. Normal Color DS: Data Data Completed and Pending Labs on day of discharge: Labs from last 24 hours 04/28/25 05:32 WBC 14.8 H RBC 3.62 L Hgb 10.4 L Hct 32.9 L MCV 90.9 MCH 28.7 MCHC 31.6 L RDW 18.4 H Plt Count 327 MPV 10.0 Immature Gran % (Auto) 0.7 H Neut % (Auto) 88.6 H Lymph % (Auto) 4.9 L [place] % (Auto) 5.7 Eos % (Auto) 0.0 Baso % (Auto) 0.1 L Lymph # (Auto) 0.73 L [place] # (Auto) 0.8 H Eos # (Auto) 0.0 Baso # (Auto) 0.0 Abs Immat Gran (auto) 0.10 H Absolute Neuts (auto) 13.1 H Absolute Nucleated RBC 0.000 Nucleated RBC % 0.0 Sodium 133 L Potassium 3.8 Chloride 104 Carbon Dioxide 24 Anion Gap 5 BUN 12 D Creatinine 0.41 L Estim Creat Clear Calc 117 Estimated GFR > 60 Glucose 152 H Calcium 7.5 L Magnesium 2.1 Total Bilirubin 0.6 AST 28 ALT 12 Alkaline Phosphatase 81 Total Protein 5.3 L Albumin 2.7 L Discharge Plan Discharge Attending physician on discharge: Tucker Mejia Consulting providers: Khai Walsh; Mina Shaikh Discharging Clinician: Annette Salas Anticipated Discharge Date/Time: 04/28/25 10:06 Patient Disposition: Home Activity: may shower and no straining Diet: bland and high fiber Discharge Instructions: Increase fluids, continue with your prednisone taper as prescribed. Follow up with your Oncologist this week, call and make appointment. Call your GI specialist, make appointment to be seen in the next 1-2 weeks. Soft high fiber diet- bland. avoid heavy greasy spicy foods. Return immediately to ER with any worrisome sign or symptom. Stop Zytega for now. Restart when Oncologist allows. Patient Instructions: Antibiotic Form Patient Language: German Stand Alone Forms: General Discharge Information Follow-up/Referrals: Maykel Gramajo MD [Primary Care Provider] - Discharge Medications: New prednisone 10 mg tablets,dose pack See Taper PO DAILY 12 Days Qty: 42 0RF Taper: Prednisone Taper from 60 mg;12 days 60 mg DAILY for 2 Days and 0 Hour 50 mg DAILY for 2 Days and 0 Hour 40 mg DAILY for 2 Days and 0 Hour 30 mg DAILY for 2 Days and 0 Hour 20 mg DAILY for 2 Days and 0 Hour 10 mg DAILY for 2 Days and 0 Hour Continued multivitamin Tablet 1 tablet PO DAILY metoprolol succinate [Toprol XL] 25 mg tablet extended release 24 hr 25 mg PO HS cholecalciferol (vitamin D3) 5,000 unit capsule 5,000 unit PO DAILY Xarelto 10 mg tablet 10 mg PO HS Patient Comments: HOld [address] Arenas. Remains on hold. triamcinolone acetonide 0.1 % cream 1 applic TOPICAL PRN alprazolam [Xanax] 0.25 mg tablet 0.25 mg PO QHS PRN (Reason: anxiety) Patient Comments: . fenofibrate 160 mg tablet See Rx Instructions .ROUTE .COMPLEX Qty: 90 3RF Dose Instruction: TAKE 1 TABLET BY MOUTH DAILY Rx Instructions: TAKE 1 TABLET BY MOUTH DAILY simvastatin [Zocor] 20 mg tablet 20 mg PO HS Qty: 90 1RF Patient Comments: . pregabalin [Lyrica] 100 mg capsule 100 mg PO Q12H 90 Days Qty: 180 1RF Patient Comments: Nightly only unless lots pain Held mesalamine [Lialda] 1.2 gram tablet,delayed release (DR/EC) 2.4 gm PO DAILY Hold Instructions: Resume on 05/12/25. hold until resumed by your specialist prednisone 5 mg tablet 5 mg PO DAILY Hold Instructions: Resume on 05/08/25. hold until steroid taper completed. Discontinued abiraterone 250 mg tablet 1,000 mg PO DAILY Patient Comments: .. Rx Instructions: must be taken on empty stomach, at least 1 hr before or 2 hrs after a meal/food Date of admission: 04/27/25 10:17 Primary Care Provider: Maykel Gramajo Admitting Provider: Tucker Mejia Attending physician on admission: Tucker Mejia Condition: Stable Quality VTE Prophylaxis VTE prophylaxis: mechanical ordered Hospitalist MIPS Heart Failure (Exclusion) Patient has history of Heart Transplant or Left Ventricular Assistive Device?: No IF YES, STOP HERE Heart Failure (Qualifier) Patient has current or prior documentation of LVEF less than or equal to 40%, or mod/servere depressed LVSF?: No IF NO, STOP HERE If Yes, Heart Failure (Qualifier) Patient was prescribed or already taking an Angiotensin-Converting Enzyme (NASIMA) Inhibitor, or Antiotensin Receptor Juni (ARB): Yes Patient was prescribed or already taking bisoprolol, carvedilol, or sustained release metoprolol succinate: Yes
[2025-04-28 12:00] VITALS: PULSE 104
== END 2025-04-28 14:02 | disposition home or self-care (01) | DRG 386 ==
LOC: ANHED 13:10 → ANH3MEDSUR 16:27
PROVIDERS: Internal Medicine; Nurse Practitioner; Admitting Provider Internal Medicine; Emergency Provider Emergency Medicine; PCP Family Medicine; Visit Provider Nurse Practitioner Family
DX: K51.90 Ulcerative colitis, unspecified, without complications (principal); C34.90 Malignant neoplasm of unspecified part of unspecified bronchus or lung; C79.51 Secondary malignant neoplasm of bone; E44.0 Moderate protein-calorie malnutrition; E87.1 Hypo-osmolality and hyponatremia; C61 Malignant neoplasm of prostate; E87.6 Hypokalemia; G47.30 Sleep apnea, unspecified; L03.032 Cellulitis of left toe; E83.51 Hypocalcemia; J44.9 Chronic obstructive pulmonary disease, unspecified; I25.10 Atherosclerotic heart disease of native coronary artery without angina pectoris; R62.7 Adult failure to thrive; I35.0 Nonrheumatic aortic (valve) stenosis; I45.10 Unspecified right bundle-branch block; R15.9 Full incontinence of feces; R15.2 Fecal urgency; R63.4 Abnormal weight loss; R63.0 Anorexia; D64.9 Anemia, unspecified; Z95.1 Presence of aortocoronary bypass graft; Z87.891 Personal history of nicotine dependence; Z68.21 Body mass index [BMI] 21.0-21.9, adult
CPT/HCPCS: 36415; 74177; 80053; 81001; 83605; 83690; 83735; 84145; 85025; 85610; 85652; 85730; 86140; 87045; 87427; 87449; 87493; 87637; 96361; 96365; 96366; 96367; 96375; 96376; 99239; 99285; A9270; J1650; J2405; J2919; J3475; J3480; J7120; J7121; Q9967

== ENCOUNTER 2025-05-30 14:34 | Emergency (ER) | payer MEDICARE, SELFPAY ==
[2025-05-30 14:50] VITALS: BP 98/62; PULSE 98; RESP 16; TEMP 36.6; O2SAT 99
--- NOTE | 2025-05-30 15:02 | ED_ITS ---
HPI - Extremity Injury (Lower) General Chief Complaint: Extremity Injury, Lower Stated Complaint: R Leg Pain Time Seen by Provider: 05/30/25 14:55 Source: patient, RN notes reviewed and old records reviewed Mode of arrival: ambulatory Limitations: no limitations History of Present Illness HPI Narrative: Patient presents today requesting evaluation of his right leg. Yesterday at 10:00 a.m., patient tripped and fell at home onto a carpeted floor with his right leg folded back behind his left leg. Since that time he has been having some cramping in the right lower leg for which he has been taking ibuprofen with some improvement. 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 Three weeks ago he was seen by his vascular surgeon and review of the note shows that this bypass/stent was patent. Patient is concerned that this fall may have injured the stent. Related Data Home Medications ?Medication ?Instructions ?Recorded ?Confirmed ?Last Taken ?Type cholecalciferol (vitamin D3) 125 5,000 unit PO DAILY 10/17/19 04/26/25 04/25/25 History mcg (5,000 unit) capsule mesalamine 1.2 gram tablet,delayed 2.4 gm PO DAILY 10/17/19 04/26/25 01/13/25 History release (Lialda) metoprolol succinate 25 mg 25 mg PO HS 10/17/19 04/26/25 04/25/25 History tablet,extended release 24 hr (Toprol XL) multivitamin 1 tablet PO DAILY 10/17/19 04/26/25 01/10/25 History rivaroxaban 10 mg tablet (Xarelto) 10 mg PO HS 06/26/24 04/26/25 01/10/25 History alprazolam 0.25 mg tablet (Xanax) 0.25 mg PO QHS PRN anxiety 04/26/25 05/19/25 04/25/25 History triamcinolone acetonide 0.1 % 1 applic topical PRN 04/26/25 05/19/25 Unknown History topical cream Allergies Allergy/AdvReac Type Severity Reaction Status Date / Time escitalopram Allergy Unknown Asthma Verified 05/27/25 14:11 sildenafil Allergy Unknown Hypotension Verified 05/27/25 14:11 Penicillins AdvReac Mild Diarrhea Verified 05/27/25 14:11 amoxicillin AdvReac Unknown Diarrhea Verified 05/27/25 14:11 ciprofloxacin AdvReac Unknown Diarrhea Verified 05/27/25 14:11 gemfibrozil AdvReac Unknown myalgias Verified 05/27/25 14:11 lactase AdvReac Unknown Nausea Verified 05/27/25 14:11 PMF Past Medical History Medical History (Updated 05/30/25 @ 15:08 by Colleen Hurst, QUALITY MEASUREMENT SPECIALIST, ) Aneurysm of popliteal artery Allergic rhinitis Deviated nasal septum Anterior epistaxis Squamous cell carcinoma lung Anxiety Fistula Bundle branch block, right COPD (chronic obstructive pulmonary disease) Coronary artery disease Proctitis Ulcerative colitis Surgical History Surgical History Port-A-Cath in place 01/14/25 Placement right internal jugular vein Port-A-Cath using ultrasound and under fluoroscopy per Dr. Arenas History of lobectomy of lung S/P pneumonectomy H/O heart bypass surgery History of colon surgery Family History Family History Father Asthma Mother Acute myocardial infarction Son Carcinoma of colon Other Family history of cardiovascular disease Social History Social History Social History: Caffeine-tea Smoking packs per day: 2 Smoking cigarettes per day: 40.0 Years smoked: 35 Smoking pack-years: 70.00 Smoking status: Former smoker Second hand tobacco smoke exposure: No Alcohol intake: never Substance use: never Substance use type: does not use Do You Feel Safe in your Home?: Yes Lack of Transportation: No Lack of Food: Never True Current Housing: I Have Housing Concerned About Future Housing: No Difficulty Paying Gas/Electric Bills: No Difficulty Paying for Meds: No Currently Unemployed: No Education: Bachelor's Degree Difficulty w/ Childcare or Family Care: No Living arrangements: with family Additional living arrangements comments: Spiritual care concerns: No Comments At time of signature, I have reviewed and agree with nursing past medical, surgical, social and family history unless otherwise noted. Please see nursing chart for further information. There is no relevant family history pertinent to the presenting complaint Exam Narrative: GENERAL: Well-appearing, well-nourished, and in no acute distress. HEAD: Normocephalic, atraumatic. EYES: EOMI. No redness or drainage. Conjunctivae normal. ENT: Mucous membranes pink and moist. NECK: Normal AROM. CHEST: No respiratory distress. EXTREMITIES: Right le+ pedal pulse. Foot and leg are pink in color with normal capillary refill. No edema, ecchymosis noted. Leg and foot are nontender to palpation with full range of motion. SKIN: Warm, dry, no rash. Capillary refill normal. Normal skin turgor. NEURO: No focal deficits. Alert and oriented x3. Gait steady. PSYCH: Normal affect. No signs of depression or anxiety. Course Course Level of Care: Express Care Visit Vital Signs Vital signs: Vital Signs Temperature 98 F 05/30/25 14:50 Pulse Rate 98 05/30/25 14:50 Respiratory Rate 16 05/30/25 14:50 Blood Pressure 98/62 L 05/30/25 14:50 Pulse Oximetry 99 05/30/25 14:50 Oxygen Delivery Room Air 05/30/25 14:50 Temperature 98 F 05/30/25 14:50 Pulse Rate 98 05/30/25 14:50 Respiratory Rate 16 05/30/25 14:50 Blood Pressure 98/62 L 05/30/25 14:50 Pulse Oximetry 99 05/30/25 14:50 Oxygen Delivery Room Air 05/30/25 14:50 Reviewed MDM - Extremity Injury (Lower) MDM Narrative Medical decision making narrative: 75-year-old male with history of coronary artery disease, 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 Patient fell yesterday and is concerned that he has damaged his right stent. Upon exam, patient is lower leg appears pink with 1+ pulse with normal capillary refill. No edema, erythema, ecchymosis. Full range of mo tion. Nontender. As patient has significant coronary artery disease and stent, 1+ pulse is likely normal for him. Vital signs stable. Differential Diagnosis Differential diagnosis: Likely other (Worried well, coronary artery disease, stent injury) Critical Care Time Critical Care Time Critical Care Time: No Discharge Plan Discharge Clinical Impression: Fall Patient Disposition: Home Condition: Stable Additional Instructions: Your leg exam is normal. Follow-up with your PCP or vascular surgeon with any additional concerns. Patient Language: Urdu Prescriptions: No Action mesalamine [Lialda] 1.2 gram tablet,delayed release (DR/EC) 2.4 gm PO DAILY multivitamin Tablet 1 tablet PO DAILY metoprolol succinate [Toprol XL] 25 mg tablet extended release 24 hr 25 mg PO HS cholecalciferol (vitamin D3) 5,000 unit capsule 5,000 unit PO DAILY Xarelto 10 mg tablet 10 mg PO HS Patient Comments: HOld [address] Arenas. Remains on hold. triamcinolone acetonide 0.1 % cream 1 applic TOPICAL PRN alprazolam [Xanax] 0.25 mg tablet 0.25 mg PO QHS PRN (Reason: anxiety) Patient Comments: .. fenofibrate 160 mg tablet See Rx Instructions .ROUTE .COMPLEX Qty: 90 3RF Dose Instruction: TAKE 1 TABLET BY MOUTH DAILY Patient Comments: .. Rx Instructions: TAKE 1 TABLET BY MOUTH DAILY simvastatin [Zocor] 20 mg tablet 20 mg PO HS Qty: 90 1RF Patient Comments: . pregabalin [Lyrica] 100 mg capsule 100 mg PO Q12H 90 Days Qty: 180 1RF Patient Comments: Nightly only unless lots pain Follow-up/Referrals: Maykel Gramajo MD [Primary Care Provider] - Time of Disposition: 15:08
== END 2025-05-30 15:15 | disposition home or self-care (01) ==
PROVIDERS: Emergency Provider Nurse Practitioner; PCP Family Medicine
DX: M79.604 Pain in right leg (principal); J44.9 Chronic obstructive pulmonary disease, unspecified; I25.10 Atherosclerotic heart disease of native coronary artery without angina pectoris; Z85.118 Personal history of other malignant neoplasm of bronchus and lung; Z79.1 Long term (current) use of non-steroidal anti-inflammatories (NSAID); Z87.891 Personal history of nicotine dependence; W01.0XXA Fall on same level from slipping, tripping and stumbling without subsequent striking against object, initial encounter
CPT/HCPCS: 99212; G0463

== ENCOUNTER 2025-07-04 10:35 | Emergency (ER) | payer MEDICARE, SELFPAY ==
--- OUTSIDE RECORDS SUMMARY | 2009-11-18 04:00 | XMS_ITS | Continuity of Care Document ---
Author Organization [facility] Address [address] [place] [address] Phone Care Team Providers Care Fig Caprifier Name Role Phone Denis Cash Unavailable Unavailable Procedures Procedure Date Eye Exam & Treatment Refraction Advance Directives Directive Yes / No Effective Date File Name No Information Encounters Encounter Description Practice Location Reason(s) For Visit Diagnoses Date Provider Providers Copied on Encounter [facility], [address], [place], [place], [id number], [place] tel:[phone] [facility] No Information 0 Shailesh Barrios. [address] [facility] [address], [place], [address], [place]. tel:[phone] Family History Family Member Type Diagnosis Age At Onset No Information Payers Payer name Insurance type Covered alliance party ID Authoriza titerell(s) [facility] Commercial CI [id number] Social History Type Description Quantity Date Captured Comments Sex Male Smoking Status No Information Chief Complaint And Reason For Visit No Information Reason For Referral Reason For Referral No Information History Of Present Illness Encounter Date Complaint History Of Prese nt Illness No Information Functional Status Date Functional Assessmen t No Information Instructions Date Instruction Additional Infor mation No Information Assessments Type Assessment Date No Information Patient Care Teams Name Effective Dates (start - stop) Status Members No Information
[2025-07-04 10:37] VITALS: BP 105/48; PULSE 86; RESP 16; TEMP 36.3; O2SAT 100
--- OUTSIDE RECORDS SUMMARY | 2025-07-04 10:37 | XMS_ITS | Encounter Summary ---
Author Organization [facility] [employer] [facility] Address [address] [place] [address] Care Team Providers Care Body Stylist Name Role Phone Maykel Gramajo MD Primary Care Provider [phone] Encounter Details Date Type Department Care Team (Late st Contact Info) Description 06/29/2025 Orders Only [facility] ([facility] Oncology and Hematology [facility] [address] [facility] [address] [place] [id number] Khai Wlash MD [address] [facility] [address] [place] [address] Prostate cancer (CMS/HCC) Social History Tobacco Use Types Packs/Day Years Used Date Smoking Tobacco: Former Cigarettes 2 35 Q uit: 12/02/2004 Smokeless Tobacco: Never Alcohol Use Standard Drinks/Week Comments Never 0 (1 standard drink = 0.6 oz pur e alcohol) Sex and Gender Information Value Date Recorded Sex Assigned at Not on file 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
--- OUTSIDE RECORDS SUMMARY | 2025-07-04 10:37 | XMS_ITS | Encounter Summary ---
Author Organization [facility] Address [address] [place] [address] Care Team Providers Care Courtesy Booth Cashier Name Role Phone Maykel Gramajo MD Primary Care Provider [phone] Encounter Details Date Type Department Care Team (Late st Contact Info) Description 08/19/2018 Lab Requisition [facility] [address] [place] [id number] Unlisted, Ordering Provider, Social History Tobacco Use Types Packs/Day Years Used Date Smoking Tobacco: Never Assessed Sex and Gender Information Value Date Recorded Sex Assigned at Not on file 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 Treatment Target Values: Normal : < 5.7% Pre-diabetes: 5.7-6.4% Diabetes: Equal to or greater than 6.5% Reference: [place] Diabetes Association Standards of Care in Diabetes -2014 In patients 70 years and older consider HbA1c target range of 7.0-7.5% Reference: Diabetes Mellitus in Older People: Position Statement on behalf of the International Association of Gerontology and Geriatrics (IAGG), the Diabetes Working Republican for Older People (EDWPOP), and the International Task Force of Experts in Diabetes. Pj Brandon, et al. J [place] Medical Directors Association. 2012 Test results diagnostic [...] LAB - CHEMISTRY OR DERABLES Final Result [address] [phone] * (ABNORMAL) LIPID PROFILE (08/22/2018 7:20 AM CDT) [facility] Signature Cholesterol Total 93 <200 mg/dL 08/22/2018 10:49 AM CDT [facility] HDL 32(L) >40 mg/dL 08/22/2018 10:49 AM [facility] Comment: ATP III Classification of HDL Cholesterol: <40 mg/dL: Considered a major risk factor. >60 mg/dL: Considered a negative risk factor. LDL Calculated 36 <100 mg/dL 08/22/2018 10:49 AM T [facility] Comment: ATP III Classification of LDL Cholesterol: <100 mg/dL: Optimal 100 - 129 mg/dL: Near Optimal/Above Optimal 130 - 159 mg/dL: Borderline High 160 - 189 mg/dL: High >190 mg/dL: Very High Triglycerides 125 <150 mg/dL 08/22/2018 10:49 AM CDT [facility] Comment: ATP III Classification of Triglycerides: <150 mg/dL: Normal 150 - 199 mg/dL: Borderline High 200 - 400 mg/dL: High >500 mg/dL: Very High Blood BLOOD SPECIMEN / Unknown Lab Venipuncture / Unknown 08/22/2018 7:20 AM CDT 08/22/2018 9:54 AM CDT us Ordering Provider Unlisted MD LAB - CHEMISTRY OR DERABLES Final Result [address] [phone] * GLUCOSE VITALITY (08/22/2018 7:20 AM CDT) Glucose 101 70 - 115 mg/dL 08/22/2018 10:23 AM CDT [facility] Blood BLOOD SPECIMEN / Unknown Lab Venipuncture / Unknown 08/22/2018 7:20 AM CDT 08/22/2018 9:54 AM CDT us Ordering Provider Unlisted MD LAB - CHEMISTRY OR DERABLES Final Result Performing Organization Address City/[facility]/ZIP Co de Phone Number [address] [phone] documented in this encounter Visit Diagnoses Not on filedocumented in this encounter Care Teams Courtesy Booth Cashier Relationship Specialty Start Date End Date Maykel Gramajo MD [address] [place] [address] PCP - General 07/28/20 documented as of this encounter
--- OUTSIDE RECORDS SUMMARY | 2025-07-04 10:37 | XMS_ITS ---
Author Organization [facility] Address [address] [place] [address] Care Team Providers Care Geophysical Engineer Name Role Phone Maykel Gramajo MD Primary Care Provider [phone] Hernan Hernandez MD Unavailable [phone] Maykel Ramires MD Unavailable [phone] Maykel Villalpando MD Unavailable [phone] Active Problems Patient Care Coordination No te [...] to consider that. PAD (peripheral artery disease) ([facility]) 2019 Overview (05/25/2020): Added automatically from request for surgery [id number] Popliteal artery aneurysm, bilateral 12/09/2019 Overview (12/09/2019): Added automatically from request for surgery [id number] Assessment & Plan (06/11/2020 5:49 PM CDT): - S/p status post self-expanding covered stent ([place] Viabahn 9 x 150 mm) placement to [...] (08/19/2019): Added automatically from request for surgery [id number] Coronary artery disease of n ative artery of [place] heart with stable angina pectoris ([facility]) 03/28/2018 Assessment & Plan (03/17/2024 9:27 [...] false-positive. 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 Assessment & Plan (10/18/2020 5:19 PM CHARGING CAR OPERATOR): He is on chronic lipid-lowering therapy. No [...]
--- OUTSIDE RECORDS SUMMARY | 2025-07-04 10:37 | XMS_ITS | Clinical Summary ---
Author Organization [facility] Address [address] [facility] [place] [address] Care Team Providers Care Riveter Hand Name Role Phone Maykel Gramajo MD Primary Care Provider [phone] Source Comments [facility],non-owned Affiliates and Associated Physician Practices is amultiple site organization consisting of ambulatory clinics and hospital sitesin [place], [place], [place] and [place]. This disclosure is being madepursuant to the Care Everywhere program and may not contain all information available regarding this patient. Last updated 18.[facility] Allergies Active Allergy Reactions Criticality Noted Date [...] (01/24/2021): Added automatically from request for surgery [id number] Chronic rhinitis 08/21/2019 History of epistaxis 08/21/2019 Aneurysm of popliteal artery 08/19/2019 Overview (01/24/2021): Added automatically from request for surgery [id number] Added automatically from request for surgery [id number] Last Assessment & Plan: - S/p status post self-expanding covered stent ([place] Viabahn 9 x 150 mm) placement to [...] the future Coronary artery disease invo [place] coronary artery of [place] heart without angina pectoris 03/28/2018 Overview (01/24/2021): [...] on file 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 Gender Identity Not on file Sexual Orientation [...] 2000 ZOSTER VACCINE (1 of 2) 2000 COVID-19 VACCINE (1 - 2023-2 5 season) 2024 DEPRESSION SCREENING 11/12/2024 Respiratory Syncytial Virus (RSV) Vaccine Pt: or over 60 yrs (1 - 1-dose 75+ series) 2025 INFLUENZA VACCINE (#1) 2025 , 08/16/2018 HEPATITIS B VACCINE Aged Out No [...] this topic Medical Devices Implanted Type Area Telephone Appointment Clerk Device Identifier Shelf Expiration Date Model / Serial / Lot Lens Iol 0 D +22.5 Ovidio Mod L Acrsf Iq - [id number] Implanted:Qty: 1 on 02/23/2021 by Hernan Hansen MD at [facility] Right: [employer] 06/21/2023 [id number] / [id number] / Lens Iol 0 D +28.0 Ovidio Mod L Acrsf Iq - [id number] Implanted:Qty: 1 on 05/18/2021 by Hernan Hansen MD at [facility] Left: [employer] 11/22/2023 [id number] / [id number] / Insurance [facility] Member Subscriber Plan / Payer (Ef fective 2020-) Name:Julio C Roberson Relation to Subscriber:Self Name:Julio C Roberson Payer ID:Not on file Group ID:[id number] N Type:Commercial Address: [facility] [id number] [place] [id number] MEDICARE Care Teams Riveter Hand Relationship Specialty Start Date End Date Maykel Gramajo MD [address] [place] [address] PCP - General 07/28/20
--- OUTSIDE RECORDS SUMMARY | 2025-07-04 10:38 | XMS_ITS | Encounter Summary ---
Author Organization [facility] Address [address] [place] [address] Care Team Providers Care Linderman Operator Name Role Phone Maykel Gramajo MD Primary Care Provider [phone] Hernan Hernandez MD Unavailable [phone] Makyel Ramires MD Unavailable LaMaykel plummer MD Unavailable [phone] Encounter Details Date Type Department Care Team (Latest Contact Info) Description 06/05/2025 Results Follow-Up 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 Patient states he does not know if he wants this done. He had this done last year and currently is going through chemo and is really sick. Fowarding to Dr. Ramires of patients response look at last years result * Telephone Encounter - Anabell Gandhi - 06/05/2025 12:32 PM CDT Lvm with patient to call office for results/recommendations. documented in this encounter Plan of Treatment Not on file documented as of this encounter Visit Diagnoses Not on filedocumented in this encounter Care Teams Linderman Operator Relationship Specialty Start Date End Date Maykel Gramajo MD PCP - General 02/09/17 Hernan Hernandez MD Surgeon Vascular Surgery 09/04/19 Maykel Ramires MD [address] [place], [place] [id number] Referring Physician Cardiology 07/25/24 Maykel Villalpando MD [address] [place] [address] Consulting Physician Cardiothoracic Surgery 07/25/24 documented as of this encounter
--- OUTSIDE RECORDS SUMMARY | 2025-07-04 10:38 | XMS_ITS | Clinical Summary ---
Author Organization [facility] Address [address] [place] [address] Care Team Providers Care Supervisor Finishing Department Name Role Phone Anat Gramajo MD Primary Care Provider [phone] Hernan Hernandez MD Unavailable [phone] nAat Contreras MD Unavailable [phone] Anat Villalpando MD Unavailable [phone] Allergies Active Allergy Reactions Criticality Noted Date [...] to consider that. PAD (peripheral artery disease) ([facility]) 2019 Overview (05/25/2020): Added automatically from request for surgery [id number] Popliteal artery aneurysm, bilateral 12/09/2019 Overview (12/09/2019): Added automatically from request for surgery [id number] Assessment & Plan (06/11/2020 5:49 PM CDT): - S/p status post self-expanding covered stent (Ellis Viabahn 9 x 150 mm) placement to [...] (08/19/2019): Added automatically from request for surgery [id number] Coronary artery disease of n ative artery of [place] heart with stable angina pectoris ([facility]) 03/28/2018 Assessment & Plan (03/17/2024 9:27 AM [...] false-positive. Assessment & Plan (10/18/2020 5:19 PM LAND ACQUISITION MANAGER): No symptoms of myocardial ischemia, albeit with [...] made. Assessment & Plan (10/18/2020 5:19 PM LAND ACQUISITION MANAGER): He is on chronic lipid-lowering therapy. No [...] Encounters Date Type Department Care Team Description 06/05/2025 Results Follow-Up [facility] Cardiology [address] [place] [id number] Anat Contreras MD Transthoracic Echo (TTE) Complete W Doppler/CF 06/02/2025 12:12 PM CDT - 06/02/2025 11:59 PM CDT Hospital Encounter [facility] OP Cardiac Testing [address] [place] [address] Nonrheumatic aortic valve stenosis Discharge Disposition: Discharge to home or self care 05/12/2025 10:15 AM CDT Office Visit [facility] Medicine Surgery [address] 8[address] [place] [address] [place] [address] Garo Barton MD Bilateral popliteal artery aneurysm (Primary Dx) 05/12/2025 9:30 AM CDT Ancillary Procedure [facility] at the [facility] [address] 8[address] [place] [address] [place] [address] Encounter for surgical aftercare following surgery on the circulatory system 05/12/2025 Orders Only [facility] Medicine Surgery [address] [place] [address] [place] [address] Garo Barton MD Bilateral popliteal artery aneurysm (Primary Dx); Aftercare following surgery of the circulatory system 05/05/2025 Documentation [facility] Medicine Gastroenterology [address] 12th [place] [address] [place] [address] Mansi Melo RN GI Advice 04/15/2025 Telephone [facility] Surgery [address] Floor 1 [place] [address] Garo Barton MD from Last 3 Months Immunizations Immunization Administration [...] 2020 VASCULAR SURGERY 12/31/2019 Self-expanding covered stent (Ellis Viabahn 9 x 100 mm) placement to exclude right SFA/popliteal aneurysm VASCULAR SURGERY 09/03/2019 . Right lower extremity angiogram 2. 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/2005 Had postoperative respirator y issues after CABG x5 necessitating prolonged intubation Coronary artery disease Hyperlipidemia Diverticulitis 2007 Colovesical fist william requiring surgery Cataract Hypertension Clotting disorder Neuromuscular disorder left foot Aortic stenosis History of blood transfusion 07/2005 Vision loss of left eye COPD (chronic obstructive pu lmonary disease) 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 [...] on file Legal Sex Male 7:01 PM LAND ACQUISITION MANAGER Gender Identity Not on file Sexual Orientation Not on file Obstetrics History Last Filed Vital Signs Vital Sign Reading Time Taken Comments Blood Pressure 100/59 05/12/2025 10:44 AM CDT Pulse 82 05/12/2025 10:44 AM CDT Temperature 36.5 C (97.7 F) 01/12/2025 10:40 AM LAND ACQUISITION MANAGER Respiratory Rate 18 10/16/2024 9:51 AM LAND ACQUISITION MANAGER Oxygen Saturation 96% 05/12/2025 10:44 AM CDT Inhaled Oxygen Concentration - - Weight 79.4 kg (175 lb) 05/12/2025 10:44 AM CDT Height 175.3 cm (5' 9) 05/12/2025 10:44 AM CDT Body Mass Index 25.84 05/12/2025 10:44 AM CDT Plan of Treatment Health Maintenance Due Date Last Done Comments Depression Screening 1950 Hepatitis C Screening 1950 Hepatitis B Screening 1968 Pneumococcal vaccine 65+ (1 of 2 - PCV) 1969 Zoster Vaccine (1 of 2) 1969 Well Visit 65+ 2015 Covid-19 Vaccine (7 - 2024-2 5 season) 2024 09/21/2023, 09/09/2022, 03/29/2022, Additional history exists Influenza Vaccine (#1) 2025 , 08/17/2022, 08/19/2019, Additional history exists Fall [...] 10/16/2024, 09/22/2013 Medical Devices Implanted Type Area Tents Assembler Device Identifier Shelf Expiration Date Model / Serial / Lot [employer]l [employer] [id number] Viabahn 9mm 9fr 15cm 120cm Iliac Artery Stent Endoprosthesis - [id number] - [id number] Implanted:Qty: 1 on 09/03/2019 by Hernan Hernandez MD at [facility] Stent Wl [employer] [id number] 07/22/2021 [id number] / [id number] / Description:Distal SFA Popli teal Artery [employer] [id number] Viabahn 9mm 9fr 10cm 120cm Delivery System Tip To Hub Deployment - [id number] - [id number] Implanted:Qty: 1 on 12/31/2019 by Hernan Hernandez MD at [facility] Stent Right: Leg [employer] [id number] 06/10/2022 [id number] / [id number] / [employer] Device Vascular Closure Femoral Artery Bioabsorbable Dual Method Vascade 6-7fr Collagen [id number] - S0 - [id number] Implanted:Qty: 1 on 07/25/2024 by Sigifredo Das MD at [facility] Vascular Closure Device [employer] 04/21/2026 [id number] / 0 / [id number] Cordis Mynxgrip 5fr Balloon Catheter Integrate Sealant Lock Latex Free [id number] - S0 - [id number] Implanted:Qty: 1 on 07/25/2024 by Sigifredo Das MD at [facility] Vascular Closure Device [employer] 05/05/2026 [id number] / [id number] / [id number] Procedures Procedure Name Priority Date/Time Associated Diagnosis Comments TRANSTHORACIC ECHO (TTE) COMPLETE W DOPPLER/CF WO CONTRAST Routine 06/02/2025 1:38 PM CDT Nonrheumatic aortic valve stenosis US ARTERIAL DUPLEX LOWER EXTREMITY RIGHT LIMITED Schedule Routine, Read Routine (OP Routine) 05/12/2025 12:16 PM CDT Encounter for surgical aftercare following surgery on the circulatory system US ARTERIAL DOPPLER LOWER EXTREMITY BILATERAL Schedule Routine, Read Routine (OP Routine) 05/12/2025 12:16 PM CDT Encounter for surgical aftercare following surgery on the circulatory system COLONOSCOPY 10/16/2024 8:40 AM LAND ACQUISITION MANAGER CTA ABDOMINAL AORTA AND BILATERAL ILIOFEMORAL RUNOFF Schedule Routine, Read Routine (OP Routine) 01/15/2024 10:28 AM LAND ACQUISITION MANAGER Popliteal artery aneurysm from Last 3 Months or Most Recently Relevant to Health Maintenance Results * TRANSTHORACIC ECHO (TTE) COMPLETE W DOPPLER/CF WO CONTRAST (06/02/2025 1:38 PM CDT) Estimated EF 50 % CONS SCIMAGE EF Mod BP 57 % CONS SCIMAGE Anatomical Region Laterality Modality Ultrasound 06/02/2025 12:2 7 PM CDT Narrative 06/02/2025 7:51 PM CDT [facility] [address] [place] [address] ECHOCARDIOGRAM Patient Name: JULIO C ROBERSON : 1950 (75y ) Gender: M Study Date: 06/02/2025 12:27:14 PM Ht(Inch): 69 Wt(Lb): 175.05 BSA: 1.97 Train Brake Operator: AJ Location: OPT 210 Order Provider: ANAT CONTRERAS BMI: 25.85 BP: 100/59 Ref Provider: ANAT CONTRERAS - PROCEDURES: Echocardiographic Report: Transthoracic Echocardiogram with complete 2D, M-Mode, Spectral and Color Flow Doppler examination. INDICATIONS: I35.0 Nonrheumatic aortic (valve) stenosis. MEASUREMENTS: 2D/MM Value Range Doppler Value Range IVSd 2D 0.85 cm [ 0.60 - 1.00 ] AV Peak Irvin 2.52 m/s [ 1.00 - 1.70 ] LVIDd 2D 4.62 cm [ 4.20 - 5.80 ] AV Peak PG 25.4 mmHg LVIDs 2D 3.00 cm [ 2.50 - 4.00 ] AV Mean PG 14.8 mmHg LVPWd 2D 0.86 cm [ 0.60 - 1.00 ] AV VTI 52.6 cm EF Mod BP 57 % [ 52 - 72 ] CHUCK VTI 0.7 cm2 Estimated EF 50 % LVOT Peak Irvin 0.60 m/s [ 0.70 - 1.10 ] LA Dimen 2D 3.24 cm [ 3.00 - 4.00 ] LVOT Diam 2.0 cm AoR Diam 2D 3.51 cm [ 3.10 - 3.70 ] LVOT Peak PG 1.4 mmHg AoR Diam 2D Index 1.78 LVOT VTI 12.3 cm LA Volume Index 12.50 ml/m2 [ 16.00 - 34.00 ] MV Peak PG 8.2 mmHg TAPSE 1.87 cm [ 1.71 - 5.00 ] MV Mean PG 2.6 mmHg MV E Peak Irvin 0.7 m/s [ 0.6 - 1.3 ] MV A Peak Irvin 1.0 m/s [ 1.0 - 1.2 ] MV PHT 90.0 ms [ 20.0 - 100.0 ] MV Decel Time 248.0 ms [ 104.0 - 258.0 ] MVA PHT 2.5 ms MV E/A Ratio 0.7 PV Peak Irvin 0.9 m/s [ 0.4 - 0.8 ] PV Peak PG 3.3 mmHg Lat E` Irvin 0.07 m/s [ 0.10 - 0.15 ] Septal E` 0.08 m/s [ 0.08 - 0.15 ] E/E` 10.00 RV S` 0.10 m/s 2D/MM Value Range Doppler Value Range - FINDINGS: BP: Blood pressure: 100/59 mmHg. Left Ventricle: The study quality is inadequate for detailed regional wall motion assessment. Mild left ventricular systolic dysfunction. Ejection Fraction is estimated at 50 %. Diastolic indices overall most consistent with Grade I diastolic dysfunction (impaired myocardial relaxation without elevated filling pressures). Normal left ventricular cavity size. LV wall thickness is within normal limits. Right Ventricle: Normal right ventricular systolic function. Normal right ventricular size. Left Atrium: The left atrium is normal in size. Right Atrium: The right atrium is normal in size. Atrial Septum: Normal appearing atrial septum. Cannot exclude PFO by atrial septal color Doppler interrogation. Mitral Valve: Mitral stenosis is absent. Trace mitral valve regurgitation. Mild mitral annular calcification. Aortic Valve: Aortic valve not well visualized. Aortic valve appears tricuspid in configuration. At least moderate aortic stenosis. There is no aortic regurgitation. Tricuspid Valve: Normal appearance of the tricuspid leaflets. Trace tricuspid regurgitation. TR envelope inadequate to estimate RVSP. Pulmonic Valve: Grossly normal appearing pulmonic valve. There is no pulmonic stenosis. Trace pulmonic regurgitation. Pericardium: No significant pericardial effusion. Aortic Root and Aorta: Normal caliber aortic root. Normal sized ascending aorta. Aortic Arch: The aortic arch is poorly visualized. IVC: Normal appearance of the inferior vena cava. CONCLUSIONS: 1. The study quality is inadequate for detailed regional wall motion assessment. Mild left ventricular systolic dysfunction. Ejection Fraction is estimated at 50 %. Diastolic indices overall most consistent with Grade I diastolic dysfunction (impaired myocardial relaxation without elevated filling pressures). Normal left ventricular cavity size. LV wall thickness is within normal limits. 2. Normal right ventricular systolic function. Normal right ventricular size. 3. Aortic valve not well visualized. Aortic valve appears tricuspid in configuration. At least moderate aortic stenosis. There is no aortic regurgitation. Electronically Signed By: Anat wilson 06/02/2025 7:51:00 PM CDT Procedure Note Anat Contreras MD - 06/02/2025 [facility] Cardiac Testing Center [address] [address] ECHOCARDIOGRAM Patient Name: JULIO C ROBERSON : 1950 (75y ) Gender: M Study Date: 06/02/2025 12:27:14 PM Ht(Inch): 69 Wt(Lb): 175.05 BSA: 1.97 Train Brake Operator: AJ Location: OPT 210 Order Provider: ANAT CONTRERAS BMI: 25.85 BP: 100/59 Ref Provider: ANAT CONTRERAS - PROCEDURES: Echocardiographic Report: Transthoracic Echocardiogram with complete 2D,M-Mode, Spectral and Color Flow Doppler examination. INDICATIONS: I35.0 Nonrheumatic aortic (valve) stenosis. MEASUREMENTS: 2D/MM Value Range DopplerValue Range IVSd 2D 0.85 cm [ 0.60 - 1.00 ] AV Peak Vel2.52 m/s [ 1.00 - 1.70 ] LVIDd 2D 4.62 cm [ 4.20 - 5.80 ] AV Peak PG25.4 mmHg LVIDs 2D 3.00 cm [ 2.50 - 4.00 ] AV Mean PG14.8 mmHg LVPWd 2D 0.86 cm [ 0.60 - 1.00 ] AV VTI52.6 cm EF Mod BP 57 % [ 52 - 72 ] CHUCK VTI0.7 cm2 Estimated EF 50 % LVOT Peak Vel0.60 m/s [ 0.70 - 1.10 ] LA Dimen 2D 3.24 cm [ 3.00 - 4.00 ] LVOT Diam2.0 cm AoR Diam 2D 3.51 cm [ 3.10 - 3.70 ] LVOT Peak PG1.4 mmHg AoR Diam 2D Index 1.78 LVOT VTI12.3 cm LA Volume Index 12.50 ml/m2 [ 16.00 - 34.00 ] MV Peak PG8.2 mmHg TAPSE 1.87 cm [ 1.71 - 5.00 ] MV Mean PG2.6 mmHg MV E Peak Irvin 0.7 m/s [ 0.6 - 1.3 ] MV A Peak Irvin 1.0 m/s [ 1.0 - 1.2 ] MV PHT 90.0 ms [ 20.0 - 100.0 ] MV Decel Time 248.0 ms [ 104.0 - 258.0 ] MVA PHT 2.5 ms MV E/A Ratio 0.7 PV Peak Irvin 0.9 m/s [ 0.4 - 0.8 ] PV Peak PG 3.3 mmHg Lat E` Irvin 0.07 m/s [ 0.10 - 0.15 ] Septal E` 0.08 m/s [ 0.08 - 0.15 ] E/E` 10.00 RV S` 0.10 m/s 2D/MM Value Range DopplerValue Range - FINDINGS: BP: Blood pressure: 100/59 mmHg. Left Ventricle: The study quality is inadequate for detailed regional wallmotion assessment. Mild left ventricular systolic dysfunction. Ejection Fractionis estimated at 50 %. Diastolic indices overall most consistent with Grade I diastolicdysfunction (impaired myocardial relaxation without elevated filling pressures).Normal left ventricular cavity size. LV wall thickness is within normal limits. Right Ventricle: Normal right ventricular systolic function. Normal rightventricular size. Left Atrium: The left atrium is normal in size. Right Atrium: The right atrium is normal in size. Atrial Septum: Normal appearing atrial septum. Cannot exclude PFO byatrial septal color Doppler interrogation. Mitral Valve: Mitral stenosis is absent. Trace mitral valve regurgitation.Mild mitral annular calcification. Aortic Valve: Aortic valve not well visualized. Aortic valve appearstricuspid in configuration. At least moderate aortic stenosis. There is no aorticregurgitation. Tricuspid Valve: Normal appearance of the tricuspid leaflets. Tracetricuspid regurgitation. TR envelope inadequate to estimate RVSP. Pulmonic Valve: Grossly normal appearing pulmonic valve. There is nopulmonic stenosis. Trace pulmonic regurgitation. Pericardium: No significant pericardial effusion. Aortic Root and Aorta: Normal caliber aortic root. Normal sized ascendingaorta. Aortic Arch: The aortic arch is poorly visualized. IVC: Normal appearance of the inferior vena cava. CONCLUSIONS: 1. The study quality is inadequate for detailed regional wall motionassessment. Mild left ventricular systolic dysfunction. Ejection Fraction is estimated at50 %. Diastolic indices overall most consistent with Grade I diastolic dysfunction(impaired myocardial relaxation without elevated filling pressures). Normal left ventricularcavity size. LV wall thickness is within normal limits. 2. Normal right ventricular systolic function. Normal right ventricularsize. 3. Aortic valve not well visualized. Aortic valve appears tricuspid inconfiguration. At least moderate aortic stenosis. There is no aortic regurgitation. Electronically Signed By: Anat Contreras MD [email or web address] 06/02/2025 7:51:00 PM CDT us Anat Contreras MD CV ECHO PROCEDURES Final R esult * US Arterial Duplex Lower Extremity Right Limited (05/12/2025 12:16 PM CDT) Anatomical Region Laterality Modality Vascular Right Ultrasound 05/12/2025 9:40 AM CDT Narrative 05/12/2025 10:12 PM CDT [employer] [facility] [employer] [facility] - Department of Vascular Surgery, Vascular Laboratory [address] [place] [address] [place] Lower Extremity Arterial Duplex Report Patient Name: JULIO C ROBERSON : 1950 Study Date: 05/12/2025 9:40:38 AM Gender: M Tech: IA Location: [facility] Ref Provider: HANH REGAN Quality: Adequate Order Provider: HANH REGAN PROCEDURES: Arterial Report: Right Lower Extremity Arterial Duplex Exam. INDICATIONS: Z48.812 Encounter for surgical aftercare following surgery on the circulatory system. MEASUREMENTS: Right Value Units Rt STUDENT WORKER Dst PSV 122 cm/s Rt Profunda Dst PSV 81 cm/s Rt Superficial Femoral Prx PSV 106 cm/s Rt Superficial Femoral Mid PSV 86 cm/s Rt Superficial Femoral Dst PSV 66 cm/s Rt Pop Dst PSV 38 cm/s Rt Post Tibial Prx PSV 33 cm/s Rt Post Tibial Mid PSV 52 cm/s Rt Post Tibial Dst PSV 34 cm/s Rt Ant Tibial Prx PSV 114 cm/s Rt Ant Tibial Mid PSV 83 cm/s Rt Ant Tibial Dst PSV 93 cm/s Rt Peroneal Prx PSV 47 cm/s Rt Peroneal Mid PSV 49 cm/s Rt Peroneal Dst PSV 71 cm/s Rt Proximal Stent 36 cm/s Rt Mid Stent 32 cm/s Rt Distal Stent 58 cm/s Right Value Units FINDINGS: Performing Train Brake Operator: Shirley Taveras RVT. Right Common Femoral: The right common femoral waveform is multiphasic. Right Profunda: The right profunda waveform is multiphasic. Right Proximal Superficial Femoral Artery: The right proximal femoral artery waveform is multiphasic. Right Mid Superficial Femoral Artery: The right mid femoral artery waveform is multiphasic. Right Distal Superficial Femoral Artery: The right distal femoral artery waveform is multiphasic. Right Popliteal: The right popliteal waveform is multiphasic. (stented). Right popliteal artery aneurysm measures 3.3 cm. Right Posterior Tibial: The right posterior tibial waveform is multiphasic. Right Anterior Tibial: The right anterior tibial waveform is multiphasic. Right Peroneal: The right peroneal artery waveform is multiphasic. Left Distal Superficial Femoral Artery: The left distal femoral artery waveform is absent. Collateral bracnhes identified. Left Popliteal: The left DISTAL popliteal waveform is monophasic. Flow reconstitutes at distal popliteal via collateral branches. Thrombosed left popliteal artery aneurysm measures 4.29 cm. Provider Notification: Results called on the above date to Garo Barton MD. The patient was sent to clinic. CONCLUSIONS: 1. See Ankle/ Brachial Index report. 2. Patent right popliteal artery stent. 3. OCCLUDED LEFT distal superficial femoral artery and prox-mid popliteal artery. HISTORY: PAD, CAD, HTN, HLD, popliteal aneurysm. Right popliteal artery stent 09-03-19. PREVIOUS STUDIES: Previous study on 09-01-24. DISCLAIMER: The study images and the final report will be retained in the patient chart by the Vascular Laboratory for the legally required time period. This chart constitutes the legal record of any testing performed. ATTESTATION: I have reviewed and interpreted the pertinent images and measurements of this study. I attest to the conclusions in the final report that is provided above. Electronically Signed By: Michael Pepe MD FACS 05/12/2025 10:11:22 PM CDT Procedure Note Michael Pepe MD - 05/12/2025 [facility] [employer] [facility] - Department of Vascular Surgery,Vascular Laboratory [address] [place] [address] [place] Lower Extremity Arterial Duplex Report Patient Name: JULIO C ROBERSON : 1950 Study Date: 05/12/2025 9:40:38 AM Gender: M Tech: IA Location: [facility] Ref Provider: HANH REGAN Quality: Adequate Order Provider: HANH REGAN PROCEDURES: Arterial Report: Right Lower Extremity Arterial Duplex Exam. INDICATIONS: Z48.812 [facility] MEASUREMENTS: Right Value Units Rt STUDENT WORKER Dst PSV 122 cm/s Rt Profunda Dst PSV 81 cm/s Rt Superficial Femoral Prx PSV 106 cm/s Rt Superficial Femoral Mid PSV 86 cm/s Rt Superficial Femoral Dst PSV 66 cm/s Rt Pop Dst PSV 38 cm/s Rt Post Tibial Prx PSV 33 cm/s Rt Post Tibial Mid PSV 52 cm/s Rt Post Tibial Dst PSV 34 cm/s Rt Ant Tibial Prx PSV 114 cm/s Rt Ant Tibial Mid PSV 83 cm/s Rt Ant Tibial Dst PSV 93 cm/s Rt Peroneal Prx PSV 47 cm/s Rt Peroneal Mid PSV 49 cm/s Rt Peroneal Dst PSV 71 cm/s Rt Proximal Stent 36 cm/s Rt Mid Stent 32 cm/s Rt Distal Stent 58 cm/s Right Value Units FINDINGS: Performing Train Brake Operator: Shirley Taveras RVT. Right Common Femoral: The right common femoral waveform is multiphasic. Right Profunda: The right profunda waveform is multiphasic. Right Proximal Superficial Femoral Artery: The right proximal femoral artery waveform is multiphasic. Right Mid Superficial Femoral Artery: The right mid femoral artery waveform is multiphasic. Right Distal Superficial Femoral Artery: The right distal femoral artery waveform is multiphasic. Right Popliteal: The right popliteal waveform is multiphasic. (stented). Right poplitealartery aneurysm measures 3.3 cm. Right Posterior Tibial: The right posterior tibial waveform is multiphasic. Right Anterior Tibial: The right anterior tibial waveform is multiphasic. Right Peroneal: The right peroneal artery waveform is multiphasic. Left Distal Superficial Femoral Artery: The left distal femoral artery waveform is absent. Collateral bracnhesidentified. Left Popliteal: The left DISTAL popliteal waveform is monophasic. Flow reconstitutes at distal popliteal via collateral branches. Thrombosed left popliteal artery aneurysm measures 4.29 cm. Provider Notification: Results called on the above date to Garo Barton MD. [facility]. CONCLUSIONS: 1. See Ankle/ Brachial Index report. 2. Patent right popliteal artery stent. 3. OCCLUDED LEFT distal superficial femoral artery and prox-mid poplitealartery. HISTORY: PAD, CAD, HTN, HLD, popliteal aneurysm. Right popliteal artery stent 09-03-19. PREVIOUS STUDIES: Previous study on 09-01-24. DISCLAIMER: The study images and the final report will be retained in the patientchart by the Vascular Laboratory for the legally required time period. This chartconstitutes the legal record of any testing performed. ATTESTATION: I have reviewed and interpreted the pertinent images and measurements ofthis study. I attest to the conclusions in the final report that is provided above. Electronically Signed By: Michael Pepe MD FACS 05/12/2025 10:11:22 PM CDT us Hanh Regan NP IMG US PROCEDURES Final Result * US Arterial Doppler Lower Extremity Bilateral (05/12/2025 12:16 PM CDT) Anatomical Region Laterality Modality Vascular Bilateral Ultrasound 05/12/2025 9:38 AM CDT Narrative 05/12/2025 11:50 AM CDT [facility] - Department of Vascular Surgery, Vascular Laboratory [address] [place] [id number] Lower Extremity Arterial Doppler Report Patient Name: JULIO C ROBERSON : 1950 Study Date: 05/12/2025 9:38:00 AM Gender: M Tech: Shirley Taveras RVT Location: [facility] Provider: HANH REGAN Quality: Adequate Order Provider: HANH REGAN PROCEDURES: Arterial Report: Bilateral lower extremity arterial Doppler exam at rest. INDICATIONS: Z48.812 Encounter for surgical aftercare following surgery on the circulatory system. MEASUREMENTS: Right Value Units Left Value Units Rt Brachial Pressure 130 mmHg Lt Brachial Pressure 126 mmHg Rt INTELLIGENCE OFFICER Pressure 127 mmHg Lt INTELLIGENCE OFFICER Pressure 72 mmHg Rt DPA Pressure 119 mmHg Lt DPA Pressure 66 mmHg Rt 1st Digit Pressure DEF mmHg Lt 1st Digit Pressure DEF mmHg Rt PT JODEE Resting 0.98 Lt PT JODEE Resting 0.55 Rt AT JODEE Resting 0.92 Lt AT JODEE Resting 0.51 Rt Digit 1/Arm Index - Lt Digit 1/Arm Index - Right Value Units Left Value Units FINDINGS: Performing Train Brake Operator: Shirley Taveras RVT. Right All Levels: The right common femoral, popliteal, posterior tibial and anterior tibial artery waveforms are multiphasic. Left Common Femoral Artery Analysis: The common femoral artery waveform is multiphasic. Left Popliteal Artery Analysis: The popliteal waveform is monophasic. Left Posterior Tibial Artery Analysis: The posterior tibial waveform is monophasic. Left Anterior Tibial Artery Analysis: The anterior tibial waveform is monophasic. Comments: Toe pressures and waveforms deferred per patient request/chemotherapy. CONCLUSIONS: 1. The above listed right Ankle/Brachial Index at rest is within normal limits (for reference, normal resting JODEE is 0.90 - 1.4; JODEE >1.4 due to non-compressible arteries is not diagnostic). 2. The above listed left Ankle/Brachial Index at rest is consistent with moderate peripheral arterial disease - claudication, (for reference, claudication range is 0.50 -0.89). 3. The right lower extremity arterial Doppler reveals multiphasic waveforms in all distributions above. No evidence of lower extremity arterial occlusive disease at rest on the right. 4. There is evidence of left leg arterial insufficiency at the level of femoral-popliteal arteries. HISTORY: History of right popliteal artery stent on 09-03-19 CAD, HLD, PAD, HTN. PREVIOUS STUDIES: Previous study on 09-01-24 RT: 1.05 LT: 0.69. DISCLAIMER: The study images and the final report will be retained in the patient chart by the Vascular Laboratory for the legally required time period. This chart constitutes the legal record of any testing performed. ATTESTATION: I have reviewed and interpreted the pertinent images and measurements of this study. I attest to the conclusions in the final report that is provided above. Electronically Signed By: Garo Barton MD [facility] [phone] 05/12/2025 11:01:46 AM CDT Procedure Note Garo Barton MD - 05/12/2025 [facility] - Department of Vascular Surgery,Vascular Laboratory [address] [place] [address] Lower Extremity Arterial Doppler Report Patient Name: JULIO C ROBERSON : 1950 Study Date: 05/12/2025 9:38:00 AM Gender: M Tech: [facility] Location: [facility] Ref Provider: HANH REGAN Quality: Adequate Order Provider: HANH REGAN PROCEDURES: Arterial Report: Bilateral lower extremity arterial Doppler exam at rest. INDICATIONS: Z48.812 Encounter for surgical aftercare following surgery on thecirculatory system. MEASUREMENTS: Right Value Units Left Value Units Rt Brachial Pressure 130 mmHg Lt Brachial Pressure 126 mmHg Rt INTELLIGENCE OFFICER Pressure 127 mmHg Lt INTELLIGENCE OFFICER Pressure 72 mmHg Rt DPA Pressure 119 mmHg Lt DPA Pressure 66 mmHg Rt 1st Digit Pressure DEF mmHg Lt 1st Digit Pressure DEF mmHg Rt PT JODEE Resting 0.98 Lt PT JODEE Resting 0.55 Rt AT JODEE Resting 0.92 Lt AT JODEE Resting 0.51 Rt Digit 1/Arm Index - Lt Digit 1/Arm Index - Right Value Units Left Value Units FINDINGS: Performing Train Brake Operator: Shirley Taveras RVT. Right All Levels: The right common femoral, popliteal, posterior tibial and anterior tibialartery waveforms are multiphasic. Left Common Femoral Artery Analysis: The common femoral artery waveform is multiphasic. Left Popliteal Artery Analysis: The popliteal waveform is monophasic. Left Posterior Tibial Artery Analysis: The posterior tibial waveform is monophasic. Left Anterior Tibial Artery Analysis: The anterior tibial waveform is monophasic. Comments: Toe pressures and waveforms deferred per patient request/chemotherapy. CONCLUSIONS: 1. The above listed right Ankle/Brachial Index at rest is within normallimits (for reference, normal resting JODEE is 0.90 - 1.4; JODEE >1.4 due tonon-compressible arteries is not diagnostic). 2. The above listed left Ankle/Brachial Index at rest is consistent withmoderate peripheral arterial disease - claudication, (for reference, claudicationrange is 0.50 -0.89). 3. The right lower extremity arterial Doppler reveals multiphasicwaveforms in all distributions above. No evidence of lower extremity arterial occlusivedisease at rest on the right. 4. There is evidence of left leg arterial insufficiency at the level offemoral-popliteal arteries. HISTORY: History of right popliteal artery stent on 09-03-19 CAD, HLD, PAD, HTN. PREVIOUS STUDIES: Previous study on 09-01-24 RT: 1.05 LT: 0.69. DISCLAIMER: The study images and the final report will be retained in the patientchart by the Vascular Laboratory for the legally required time period. This chartconstitutes the legal record of any testing performed. ATTESTATION: I have reviewed and interpreted the pertinent images and measurements ofthis study. I attest to the conclusions in the final report that is provided above. Electronically Signed By: Garo Barton MD [facility] [phone] 05/12/2025 11:01:46 AM CDT Hanh Regan CONSUMER RECRUITER IMG US PROCEDURES Final Result * Colonoscopy (10/16/2024 8:40 AM LAND ACQUISITION MANAGER) Anatomical Region Laterality Modality Other Narrative Procedure Note Mendel Sung MD - 10/16/2024 8:40 AM CST [facility] Patient Name: Julio C Roberson Procedure Date: 10/16/2024 8:40 AM Date of : 1950 Admit Type: Outpatient Age: 74 Gender: Male Attending MD: Mendel Sung M.D. Room: [facility] ENDOSCOPY ROOM 8 Note Status: Finalized [...] The scope was passed under direct vision.The [id number] endoscope was introduced through the anus and advanced to the cecum, identified by appendiceal orifice and ileocecal valve. The colonoscopy was performed without difficulty. The patient tolerated the procedure well. The qualityof the bowel preparation was evaluated using the BBPS ([employer] Bowel Preparation Scale) with scores of:Right Colon [...] During normal business hours - [facility] [place] [facility] [place]: [phone]. After hours, evening, nights, weekends and holidays- Please call the hospital power shovel operator at and ask for the GI fellow pest control worker helper. Electronically signed by Mendel Sung MD Mendel Sung M.D. 10/16/2024 9:23:20 AM . Number of Addenda: 0 Note Initiated On: 10/16/2024 8:40 AM us Mendel Sung MD ENDOSCOPY PROCEDURES Final Result * CTA Abdominal Aorta And Bilateral Iliofemoral Runoff (01/15/2024 10:28 AM LAND ACQUISITION MANAGER) Anatomical Region Laterality Modality Body Bilateral Computed Tomogra phy 01/15/2024 11:5 2 AM LAND ACQUISITION MANAGER Addenda Addendum by Jason Mahan MD on 03/03/2024 3:45 PM CDT Follow up Cardiothoracic Surgery consult and PET/CT done on 02/07/24. Margarita CHAVEZ, RN. Edited by: Margarita Mccabe Electronically signed by: Jason Mahan M.D. Impressions 01/15/2024 1:08 PM LAND ACQUISITION MANAGER 1. Spiculated soft tissue nodule in the [...] Jason Mahan M.D. Narrative 01/15/2024 1:08 PM LAND ACQUISITION MANAGER EXAMINATION: CT ANGIOGRAPHY OF THE ABDOMEN, PELVIS, [...] Recently Relevant to Health Maintenance Insurance MEDICARE [facility] MEDICARE [facility] MEDICARE [facility] Advance Directives For more information, please contact: [phone] Documents on File Type Date Recorded Patient Mapping Specialist Expl anation Power of Drum Tester 07/25/2024 6:24 AM * Full Code (Latest [...] 4:37 PM 09/04/2019 7:06 PM Care Teams Supervisor Finishing Department Relationship Specialty Start Date End Date Anat Gramajo MD PCP - General 02/09/17 Hernan Hernandez MD Surgeon Vascular Surgery 09/04/19 Anat Contreras MD [address] [place] [address] Referring Physician Cardiology 07/25/24 Anat Villalpando MD [address] [place] [address] Consulting Physician Cardiothoracic Surgery 07/25/24
--- OUTSIDE RECORDS SUMMARY | 2025-07-04 10:38 | XMS_ITS | Clinical Summary ---
Author Organization [facility] Uriel Mar Address [address] [place] [address] Care Team Providers Care Materials Handling Coordinator Name Role Phone Maykel Gramajo MD Primary Care Provider [phone] Allergies Active Allergy Reactions Criticality Noted Date [...] mouth nightly as needed for Anxiety. Active cholecalcifero l, vitamin D3, 5,000 unit Take 400 Units by mouth daily. Active fenofibrate (LOFIBRA) 160 mg Tablet Take 160 mg by mouth daily. Active pregabalin (LYRICA) 100 mg Capsule Take 100 mg by mouth daily at bedtime. Active simvastatin (ZOCOR) 20 mg tablet Take 20 mg by mouth daily with supper. Active multivitamin (DAILY-WILLIAM) tablet Take 1 Tablet by mouth daily. Active ondansetron (ZOFRAN ODT) 8 mg Tablet, Rapid Dissolve Dissolve 1 tablet on top of tongue then swallow with saliva every 8 hours as needed for nausea or vomiting 30 Tablet 1 5 Active lidocaine-pril ocaine (EMLA) 2.5-2.5 % Cream Apply a quarter [...] 30 Tablet 1 5 Active potassium CHLORIDE (K-DUR,KLOR-CO N M20) 20 mEq Extended Release tablet Take 1 Tablet (20 mEq) by mouth daily. 30 Tablet 1 5 Active diphenoxylate- atropine 2.5 mg-0.025 mg tablet Take 1 Tablet by mouth 4 times daily as needed for Diarrhea/Loos e Stools. 30 Tablet 5 Active predniSONE (DELTASONE) 5 mg tablet Take 1 Tablet (5 mg) by mouth 2 times daily. 60 Tablet 4 5 Active abiraterone (ZYTIGA) 250 mg tablet Take 4 Tablets (1,000 mg) by mouth daily before breakfast. 120 Tablet 4 06/17/2025 10:12 AM CDT 5 Active levoFLOXacin (LEVAQUIN) 500 mg tablet Take 1 Tablet (500 mg) by mouth daily for 7 days. 7 Tablet 5 06/12/20 25 Discontinue d(Alternate therapy prescribed) azithromycin (ZITHROMAX) 250 mg tablet Take 2 Tablets (500 mg) by mouth daily for 1 day, THEN 1 Tablet (250 mg) daily for 4 days. 6 Tablet 5 06/17/20 25 Active Problems No known active problems Encounters Date Type Department Care Team Description 06/30/2025 External Device Data STL ABSTRACTION Provider, Abstract 06/29/2025 Orders Only [facility] Oncology and Hematology - [place] [address] [place] [address] Khai Walsh MD Prostate cancer ([facility]) 06/24/2025 Orders Only [facility] Oncology and Hematology - [place] [address] [place] [address] Khai Walsh MD 06/18/2025 Orders Only [facility] Oncology and Hematology - [place] [address] [place] [address] Khai Walsh MD 06/16/2025 External Device Data STL ABSTRACTION Provider, Abstract 06/16/2025 Orders Only [facility] Oncology and Hematology - [place] [address] [place] [address] Khai Walsh MD Prostate cancer ([facility]) (Primary Dx) 06/15/2025 Orders Only [facility] Oncology and Hematology - [place] [address] [place] [address] Khai Walsh MD Prostate cancer ([facility]) 06/12/2025 Orders Only [facility] Oncology and Hematology - [place] [address] [place] [address] Khai Walsh MD 06/12/2025 Telephone [facility] Oncology and Hematology - [address] [address] [place] [address] Khai Walsh MD Upper Respiratory Symptoms 06/11/2025 Orders Only [facility] Oncology and Hematology - [address] [address] [place] [address] Khai Walsh MD 06/10/2025 Telephone [facility] Oncology and Hematology - [place] [address] [place] [address] Khai Walsh MD Upper Respiratory Symptoms 06/09/2025 Specialty Pharmacy [facility] [address] [place] [phone] Regina Sewell, PHARMACIST Specialty Pharmacy Refill Coordination 06/03/2025 8:45 AM CDT Office Visit [facility] Oncology and Hematology - [place] [address] [place] [address] Khai Walsh MD Prostate cancer ([facility]) (Primary Dx) 06/03/2025 Orders Only [facility] Oncology and Hematology - [place] [address] [place] [address] Khai Walsh MD 06/01/2025 Orders Only [facility] On[facility] - [place] [address] [place] [address] Khai Walsh MD Prostate cancer ([facility]) 05/29/2025 Orders Only [facility] - [place] [address] [place] [address] Khai Walsh MD 05/26/2025 Refill [facility] Oncology and Hematology - [place] [address] [place] [address] Khai Walsh MD 05/25/2025 Refill [facility] Oncology and Hematology - [place] [address] [place] [address] Khai Walsh MD 05/18/2025 Orders Only [facility] On[facility] and [facility] - [place] [address] Khai Walsh MD Prostate cancer ([facility]) 2025 Orders Only [facility] Oncology and [facility]ology - [place] [address] Khai Walsh MD 05/05/2025 8:45 AM CDT [facility] Oncology and Hematology - [place] [address] Khai Walsh MD Prostate cancer ([facility]) (Primary Dx) 05/05/2025 Orders Only [facility] and [facility] - [place] [address] Khai Walsh MD 05/04/2025 Orders Only [facility] Oncology and Hematology - [place] [address] [place] [address] Khai Walsh MD Prostate cancer ([facility]) 04/28/2025 External Device Data STL ABSTRACTION Provider, Abstract 04/22/2025 Specialty Pharmacy [facility] [address] [place] [phone] Latoya Becerra, PHARMACIST Specialty Pharmacy Refill Coordination 04/20/2025 Orders Only [facility] Oncology and Hematology - [place] [address] [place] [address] Khai aWlsh MD Prostate cancer ([facility]) 04/09/2025 9:15 AM CDT Office Visit [facility] Oncology and Hematology - [place] [address] [place] [address] Khai Walsh MD Prostate cancer ([facility]) (Primary Dx); Infection of nail bed of toe of left foot 04/09/2025 Orders Only [facility] Oncology and Hematology - [place] [address] [place] [address] Khai Walsh MD 04/07/2025 External Device Data STL ABSTRACTION Provider, Abstract 04/06/2025 Orders Only [facility] Oncology and Hematology - [place] [address] [place] [address] Khai Walsh MD Prostate cancer ([facility]) from Last 3 Months Family History Medical [...] on file Legal Sex Male 1:21 PM PROCESS IMPROVEMENT SPECIALIST Gender Identity Not on file Sexual Orientation Not on file Last Filed Vital Signs Vital Sign Reading Time Taken Comments Blood Pressure 97/66 06/03/2025 8:34 AM CDT Pulse 84 06/03/2025 8:34 AM CDT Temperature 36.2 C (97.2 F) 06/03/2025 8:34 AM CDT Respiratory Rate 16 06/03/2025 8:34 AM CDT Oxygen Saturation 98% 06/03/2025 8:34 AM CDT Inhaled Oxygen Concentration - - Weight 63.1 kg (139 lb 3.2 oz) 06/03/2025 8:34 A M CDT Height 172.7 cm (5' 8) 12/02/2024 10:06 AM PROCESS IMPROVEMENT SPECIALIST Body Mass Index 21.17 12/02/2024 10:06 AM PROCESS IMPROVEMENT SPECIALIST Plan of Treatment Health Maintenance Due Date Last Done Comments PNEUMOCOCCAL VACCINE 50+ YEA RS (1 of 2 - PCV) 1969 FIT-DNA Q 3 years 1995 FIT/FOBT Q 1 year 1995 Flex Sig/CT Colonography Q 5 years 1995 ZOSTER VACCINE (1 of 2) 2000 Abdominal Aortic Aneurysm (A AA) Screening 2015 RSV VACCINE (60+ or ) (1 - 1-dose 75+ series) 2025 INFLUENZA VACCINE (#1) 2025 , 08/17/2022, 08/16/2018 DTAP/TDAP/TD VACCINES (2 - T d or Tdap) 03/26/2033 03/26/2023 COLORECTAL SCREENING 10/16/2034 10/16/2024, 10/16/2024, 10/16/2024 Colorectal Cancer Screening 10/16/2034 Procedures Procedure Name Priority Date/Time Associated Diagnosis Comments BASIC METABOLIC PANEL Routine 06/24/2025 12:40 PM CDT COMPREHENSIVE METABOLIC PANEL Routine 06/24/2025 12:37 PM CDT BASIC METABOLIC PANEL Routine 06/17/2025 12:26 PM CDT COMPREHENSIVE METABOLIC PANEL Routine 06/17/2025 12:25 PM CDT CBC WITH DIFFERENTIAL Routine 06/03/2025 11:54 AM CDT COMPREHENSIVE METABOLIC PANEL Routine 06/03/2025 11:51 AM CDT BASIC METABOLIC PANEL Routine 06/03/2025 11:45 AM CDT BASIC METABOLIC PANEL Routine 05/27/2025 2:53 PM CDT COMPREHENSIVE METABOLIC PANEL Routine 05/27/2025 2:50 PM CDT COMPREHENSIVE METABOLIC PANEL Routine 2025 12:38 PM CDT BASIC METABOLIC PANEL Routine 2025 12:35 PM CDT BASIC METABOLIC PANEL Routine 05/05/2025 12:32 PM CDT CBC WITH DIFFERENTIAL Routine 05/05/2025 12:31 PM CDT BASIC METABOLIC PANEL Routine 04/09/2025 3:44 PM CDT COMPREHENSIVE METABOLIC PANEL Routine 04/09/2025 3:34 PM CDT from Last 3 Months Results * BASIC METABOLIC PANEL (06/24/2025 12:40 PM CDT) Only the most recent of7 resultswithin the time period is included. Blood us Khai Walsh MD CHEMISTRY ORDERABLES Final Resu lt * COMPREHENSIVE METABOLIC PANEL (06/24/2025 12:37 PM CDT) Only the most recent of6 resultswithin the time period is included. Blood us Khai Walsh MD CHEMISTRY ORDERABLES Final Resu lt * CBC WITH DIFFERENTIAL (06/03/2025 11:54 AM CDT) Only the most recent of2 resultswithin the time period is included. Blood us Khai Walsh MD HEMATOLOGY ORDERABLES Final Res ult from Last 3 Months Insurance MEDICARE PART A AND B [facility] [id number] RX [employer] Member Subscriber Plan / Payer (Ef fective 2024-Present) Name:Gume Roberson Relation to Subscriber:Self Name:Gume Roberson Payer ID:Not on file Group ID:[id number] Type:RX Medicare Part D Address: [address] Care Teams Materials Handling Coordinator Relationship Specialty Start Date End Date Maykel Gramajo MD [address] [place] [phone] PCP - General Family Practice 12/02/24
--- NOTE | 2025-07-04 10:48 | PC.NURSE ---
Pt. states my blood is ALWAYS low.
[2025-07-04 11:25] VITALS: BP 116/71; PULSE 82; RESP 20; O2SAT 98
[2025-07-04 11:28] VITALS: BP 116/71; PULSE 86; RESP 19; O2SAT 98
[2025-07-04] MEDS: PHENYLEPHRINE 1% NA SPR (*BKC) 15 ML BTL 2 SPRAY NASAL (11:44)
--- NOTE | 2025-07-04 12:32 | ED_ITS ---
HPI - General Adult General Chief complaint: Epistaxis Stated complaint: nose bleed, controlled with nose clip Time Seen by Provider: 07/04/25 11:27 History of Present Illness HPI narrative: Patient is a 75-year-old gentleman presents emergency department with chief complaint of nose bleed. Patient reports he is not on any blood thinners reports that he has had some upper respiratory symptoms recently and was blowing his nose and his nose started bleeding. The patient states he had a significant amount of bleeding and was taking lot have to stop bleeding. Patient reports that he did have some blood drip down the back of his throat patient reports of does claim has applied it is not actively bleeding at this moment Related Data Home Medications ?Medication ?Instructions ?Recorded ?Confirmed ?Last Taken ?Type cholecalciferol (vitamin D3) 125 5,000 unit PO DAILY 1 12/18/18 07/02/25 04/25/25 History mcg (5,000 unit) capsule mesalamine 1.2 gram tablet,delayed 2.4 gm PO DAILY 04/3007/02/25 01/13/25 History release (Lialda) Held on 04/28/25. Instructions: Resume on 05/12/25. hold until resumed by your specialist metoprolol succinate 25 mg 25 mg PO HS 10/17/1904/25/25 History tablet,extended release 24 hr (Toprol XL) multivitamin 1 tablet PO DAILY 10/17/19 0 07/02/25 01/10/25 History alprazolam 0.25 mg tablet (Xanax) 0.25 mg PO QHS PRN a nxiety 04/26/25 07/02/25 04/25/25 History triamcinolone acetonide 0.1 % 1 applic topical PRN 07/02/25 Unknown History topical cream abiraterone 250 mg tablet 1,000 mg PO DAILY 06/22/25 0 07/02/25 Unknown History lidocaine-prilocaine 2.5 %-2.5 % 1 applic topical ROQUE Y PRN pain 06/22/25 07/02/25 Unknown History topical cream ondansetron 8 mg disintegrating 8 mg PO Q8-12H PRN taryn sea and 06/22/25 07/02/25 Unknown History tablet vomiting prednisone 5 mg tablet 5 mg PO Q12H 06/22/25 Unknown History Allergies Allergy/AdvReac Type Severity Reaction Status Date / Time escitalopram Allergy Unknown Asthma Verified 07/04/25 11:29 sildenafil Allergy Unknown Hypotension Verified 07/04/25 11:29 Penicillins AdvReac Mild Diarrhea Verified 07/04/25 11:29 amoxicillin AdvReac Unknown Diarrhea Verified 07/04/25 11:29 ciprofloxacin AdvReac Unknown Diarrhea Verified 07/04/25 11:29 gemfibrozil AdvReac Unknown myalgias Verified 07/04/25 11:29 lactase AdvReac Unknown Nausea Verified 07/04/25 11:29 Review of Systems Review of Systems: A 10 system review of systems was completed on the patient and is negative except for what is stated in the HPI. Nursing and ancillary documentation was reviewed. [facility] Past Medical History Medical History Aneurysm of popliteal artery Allergic rhinitis Deviated nasal septum Anterior epistaxis Squamous cell carcinoma lung Anxiety Fistula Bundle branch block, right COPD (chronic obstructive pulmonary disease) Coronary artery disease Proctitis Ulcerative colitis Surgical History Surgical History Port-A-Cath in place 01/14/25 Placement right internal jugular vein Port-A-Cath using ultrasound and under fluoroscopy per Dr. Arenas History of lobectomy of lung S/P pneumonectomy H/O heart bypass surgery History of colon surgery Family History Family History Father Asthma Mother Acute myocardial infarction Son Carcinoma of colon Other Family history of cardiovascular disease Social History Social History Social History: Caffeine-tea Smoking packs per day: 2 Smoking cigarettes per day: 40.0 Years smoked: 35 Smoking pack-years: 70.00 Smoking status: Former smoker Second hand tobacco smoke exposure: No Alcohol intake: never Substance use: never Substance use type: does not use Do You Feel Safe in your Home?: Yes Lack of Transportation: No Lack of Food: Never True Current Housing: I Have Housing Concerned About Future Housing: No Difficulty Paying Gas/Electric Bills: No Difficulty Paying for Meds: No Currently Unemployed: No Education: Bachelor's Degree Difficulty w/ Childcare or Family Care: No Living arrangements: with family Additional living arrangements comments: Spiritual care concerns: No Exam Narrative: GENERAL: Well-appearing, well-nourished, and in no acute distress. HEAD: Normocephalic, atraumatic. EYES: PERRLA and EOMI. ENT: Nares clear, no rhinorrhea no active bleeding in the nostrils there is clotted blood in the right nostril. Mucous membranes moist. NECK: Supple. CHEST: Clear to auscultation. No respiratory distress. HEART: Regular rate and rhythm. No murmur heard. Normal peripheral pulses. ABDOMEN: Soft, nontender, nondistended, normal active bowel sounds. EXTREMITIES: Normal range of motion. No edema. SKIN: Warm, dry, no rash. NEURO: No focal deficits. Alert and oriented x3. PSYCH: Normal mood and affect. Course Vital Signs Vital signs: Vital Signs Temperature 36.3 C L 07/04/25 10:37 Pulse Rate 86 07/04/25 10:37 Respiratory Rate 16 07/04/25 10:37 Blood Pressure 105/48 L 07/04/25 10:37 Pulse Oximetry 100 07/04/25 10:37 Oxygen Delivery Room Air 07/04/25 10:37 Temperature 36.3 C L 07/04/25 10:37 Pulse Rate 86 07/04/25 11:28 Respiratory Rate 19 07/04/25 11:28 Blood Pressure 116/71 07/04/25 11:28 Pulse Oximetry 98 07/04/25 11:28 Oxygen Delivery Room Air 07/04/25 11:25 Medical Decision Making [facility] Narrative Medical decision making narrative: Differential diagnosis includes epistaxis, Patient was having minimal bleeding upon arrival in the emergency department patient given Dov-Synephrine nasal spray and pressure was applied patient was observed afterwards and has had no continued bleeding Vital Signs Vital Signs: Vital Signs Temperature 36.3 C L 07/04/25 10:37 Pulse Rate 86 07/04/25 10:37 Respiratory Rate 16 07/04/25 10:37 Blood Pressure 105/48 L 07/04/25 10:37 Pulse Oximetry 100 07/04/25 10:37 Oxygen Delivery Room Air 07/04/25 10:37 Temperature 36.3 C L 07/04/25 10:37 Pulse Rate 86 07/04/25 11:28 Respiratory Rate 19 07/04/25 11:28 Blood Pressure 116/71 07/04/25 11:28 Pulse Oximetry 98 07/04/25 11:28 Oxygen Delivery Room Air 07/04/25 11:25 Discharge Plan Discharge Clinical Impression: Epistaxis Patient Disposition: Home Condition: Stable Instructions: Antibiotic Form, Nosebleed (ED) Additional Instructions: If he develops further bleeding please initially flow your nose to clear any clots then apply 2 sprays of the Dov-Synephrine nasal spray hold pressure to your nose for 5-10 minutes while leaning forward do not release the pressure until you have held pressure for at least 5-10 minutes Patient Language: Macanese Prescriptions: No Action prednisone 5 mg tablet 5 mg PO Q12H abiraterone 250 mg tablet 1,000 mg PO DAILY ondansetron 8 mg tablet,disintegrating 8 mg PO Q8-12H PRN (Reason: nausea and vomiting) lidocaine-prilocaine 2.5-2.5 % cream 1 applic topical DAILY PRN (Reason: pain) mesalamine [Lialda] 1.2 gram tablet,delayed release (DR/EC) 2.4 gm PO DAILY multivitamin Tablet 1 tablet PO DAILY metoprolol succinate [Toprol XL] 25 mg tablet extended release 24 hr 25 mg PO HS cholecalciferol (vitamin D3) 5,000 unit capsule 5,000 unit PO DAILY Patient Comments: . doxycycline hyclate 100 mg capsule 100 mg PO BID Qty: 20 0RF triamcinolone acetonide 0.1 % cream 1 applic TOPICAL PRN alprazolam [Xanax] 0.25 mg tablet 0.25 mg PO QHS PRN (Reason: anxiety) Patient Comments: .... fenofibrate 160 mg tablet See Rx Instructions .ROUTE .COMPLEX Qty: 90 3RF Dose Instruction: TAKE 1 TABLET BY MOUTH DAILY Patient Comments: .. Rx Instructions: TAKE 1 TABLET BY MOUTH DAILY simvastatin [Zocor] 20 mg tablet 20 mg PO HS Qty: 90 1RF Patient Comments: . pregabalin [Lyrica] 100 mg capsule 100 mg PO Q12H 90 Days Qty: 180 1RF Patient Comments: Nightly only unless lots pain Follow-up/Referrals: Maykel Gramajo MD [Primary Care Provider, Family Practice] Time of Disposition: 15:20
[2025-07-04 15:35] VITALS: BP 123/69; PULSE 81; RESP 18; O2SAT 100
== END 2025-07-04 15:36 | disposition home or self-care (01) ==
PROVIDERS: Emergency Provider Emergency Medicine; PCP Family Medicine
DX: R04.0 Epistaxis (principal); J44.9 Chronic obstructive pulmonary disease, unspecified; I25.10 Atherosclerotic heart disease of native coronary artery without angina pectoris; K51.90 Ulcerative colitis, unspecified, without complications; F41.9 Anxiety disorder, unspecified; Z85.118 Personal history of other malignant neoplasm of bronchus and lung; Z87.891 Personal history of nicotine dependence; Z90.2 Acquired absence of lung [part of]; Z79.1 Long term (current) use of non-steroidal anti-inflammatories (NSAID); Z79.899 Other long term (current) drug therapy
CPT/HCPCS: 99283; A9270

== ENCOUNTER 2025-08-21 07:15 | Outpatient (RCR) | payer MEDICARE, SELFPAY ==
--- NOTE | 2025-07-21 10:00 | WNDPHOTO ---
PHOTO ONLY - See Nursing Notes and/ or assessments for documentation.
[2025-07-21 10:23] VITALS: BMI 21.2
--- NOTE | 2025-08-17 11:11 | PCWOUND ---
WOCN NOTE Patient called and left message to cancel appointment for tomorrow 08/18/25 as he as conflict with an oncology appointment. Left message with patient to reach out to wound center if he would like to reschedule, but as his wound is superficial, follow up is not necessary.
== END 2025-09-14 14:50 | disposition home or self-care (01) ==
LOC: ANHWOC 07:15
PROVIDERS: PCP Family Medicine; Visit Provider Nurse Practitioner Family
DX: L03.032 Cellulitis of left toe (principal); S91.301A Unspecified open wound, right foot, initial encounter; S91.302A Unspecified open wound, left foot, initial encounter
CPT/HCPCS: 99213; 99214; A9270; G0463

== ENCOUNTER 2025-08-30 09:09 | Inpatient (IN) | payer MEDICARE, SELFPAY ==
[2025-08-30] VITALS (30 sets, daily range): BP systolic 100–125; BP diastolic 46–66; PULSE 98–119; RESP 11–24; TEMP 36.6–37; O2SAT 89–100; BMI 22.0
--- NOTE | ~2025-08-30 | CT_ITS ---
EXAMINATION: CT diagnostic chest w con DATE: 09/03/2025 02:00 INDICATION: rapid response TECHNIQUE: Computed tomography (CT) of the chest was performed with 100 mL Omnipaque-350 intravenous contrast. Additional 3D reconstructions utilizing coronal maximum intensity projection (MIP) were performed. Automated exposure control and iterative reconstruction technique were employed. The dose-length product was 297.77 mGy-cm. COMPARISON: CT studies dated 09/02/2025 and 04/26/2025 FINDINGS: Significant decrease in lung volumes with progressive dependent atelectasis in both lungs with partial collapse of the bilateral lower lobes. No significant change in a small left and moderate-sized right posterior layering pleural effusions. Heart size is normal. Atherosclerotic coronary artery calcifications and change of prior median sternotomy and coronary artery bypass grafting. Thoracic aorta is normal in caliber with no dissection. No pathologically enlarged thoracic lymphadenopathy. And moderate amount of ascites in the visualized upper abdomen. Calcified gallstones layering in the dependent aspect of the otherwise unremarkable gallbladder. There are few sclerotic lesions in the spine, sternum and multiple ribs consistent with known metastatic prostate cancer with chronic pathologic compression fracture at T10. IMPRESSION: 1. Significant decrease in lung volumes with prominent dependent atelectasis including partial collapse of the bilateral lower lobes. Superimposed pneumonia not excludable. 2. No significant change in small left and moderate-sized right pleural effusions. 3. Moderate amount of ascites in the upper abdomen. 4. Scattered sclerotic bone lesions consistent with known metastatic prostate cancer and with chronic pathologic fracture at T10. Reviewed, dictated and finalized at location A. IMPRESSION: 1. Significant decrease in lung volumes with prominent dependent atelectasis in cluding partial collapse of the bilateral lower lobes. Superimposed pneumonia n ot excludable. 2. No significant change in small left and moderate-sized right pleural effusio ns. 3. Moderate amount of ascites in the upper abdomen. 4. Scattered sclerotic bone lesions consistent with known metastatic prostate c ancer and with chronic pathologic fracture at T10.
--- NOTE | ~2025-08-30 | XR_ITS ---
Examination: XR chest 1V portable Clinical History: Pneumonia, respiratory failure, pleural effusion Comparison: 1 day prior Technique: Portable AP Findings: ET tube, NG tube, right chest Mediport. Heart size normal. Pleural effusions. Bibasilar opacities. Worsening interstitial markings. No pneumothorax. No acute bony abnormality. IMPRESSION: 1. Worsening interstitial pulmonary edema and/or pneumonitis. 2. Persistent pleural effusions with bibasilar atelectasis and/or airspace. Reviewed, dictated and finalized at location R.
--- NOTE | ~2025-08-30 | XR_ITS ---
Examination: XR chest 1V portable Clinical History: POST BEDSIDE THORA Comparison: 30 minutes prior Technique: Portable AP Findings: Right chest Mediport. Heart size normal. Pleural effusions less well seen than on CT. Similarly bibasilar atelectasis less well seen. Loculated effusion right apex. No pneumothorax. No acute bony abnormality. IMPRESSION: 1. No pneumothorax identified. Reviewed, dictated and finalized at location R.
--- NOTE | ~2025-08-30 | CT_ITS ---
CT HEAD CTA NECK, CTA HEAD Clinical History: RAPID RESPONSE Comparison: None TECHNIQUE: Unenhanced axial images skull base to vertex Coronal, sagittal reformats Helical images thoracic inlet to vertex IV contrast information not listed in PACS Coronal, sagittal reformats. Multi planar MIPS CT images acquired with automatic exposure control for dose reduction DLP: 1810 mGy-cm Findings: CT HEAD Mild white matter changes, typically chronic microvascular ischemic disease. Sulci, ventricles: Unremarkable. No intracerebral hemorrhage. No evidence acute territorial infarct. No mass effect, midline shift. Bony calvarium intact. Visualized paranasal sinuses: Right maxillary disease. Mild ethmoid and sphenoid disease. Mastoid air cells: Small fluid. No abnormal foci of contrast enhancement. Patent dural venous sinuses. CTA NECK NASCET Criteria utilized Aortic arch: No aneurysm or dissection. Atherosclerotic disease Great vessel origins: No stenosis. CCAs: No dissection. No stenosis. Cervical ICAs: Motion artifact. Thin linear filling defect bilaterally. Vertebral Arteries: Patent. Lung Apices: Pleural effusions and airspace disease. Thyroid: Unremarkable. Nodes: No enlarged nodes. Bones: No acute bony abnormality. CTA HEAD: Aneurysms: None. Intracranial ICAs: Cavernous segments calcified but patent. ACAs and their distal branches: Patent, unremarkable. A-Comm: Identified. Patent, unremarkable. MCAs and their distal branches: Patent, unremarkable. Basilar artery: Patent, unremarkable. box lidder and their distal branches: Patent, unremarkable. P-Comms: Neither present. IMPRESSION: CT HEAD: 1. No acute intracranial findings. CTA NECK: 1. Motion artifact along carotid bulbs. Stenosis or even dissection not excluded. Recommend carotid ultrasound. CTA HEAD: 1. No large vessel arterial occlusive disease or other acute findings. 2. No aneurysms. Reviewed, dictated and finalized at location R. IMPRESSION: CT HEAD: 1. No acute intracranial findings. CTA NECK: 1. Motion artifact along carotid bulbs. Stenosis or even dissection not exclud ed. Recommend carotid ultrasound. CTA HEAD: 1. No large vessel arterial occlusive disease or other acute findings. 2. No aneurysms.
--- NOTE | ~2025-08-30 | XR_ITS ---
MODIFIED ESOPHAGRAM HISTORY: Dysphagia with observed coughing with liquids TECHNIQUE: Modified barium esophagram was performed on 09/10/2025. I administered fluoroscopy and performed the exam with speech pathologist. Patient was seated for lateral fluoroscopic imaging for ingestion of thin liquids, pudding, solids and quantified amounts, followed by thin liquids in uncontrolled amounts. This was recorded on tape. 2 fluoroscopic spot images were also recorded. The DAP for this procedure was 2.218 Gycm2. The amount of fluoroscopy time used during this procedure was 4.3 minutes. FINDINGS: Oral stage: Adequate function. Pharyngeal stage: Reduced laryngeal elevation and tongue base retraction. There is vallecular, piriform sinus and pharyngeal wall residue. Laryngeal penetration without aspiration with thin and mildly thickened liquids. Cervical/esophageal stage: Adequate function. IMPRESSION: Pharyngeal dysphagia and laryngeal penetration without aspiration. Please correlate with speech pathologist findings and specific feeding recommendations. Reviewed, dictated and finalized at location A. IMPRESSION: Pharyngeal dysphagia and laryngeal penetration without aspiration. Please correlate with speech pathologist findings and specific feeding recomme ndations.
--- NOTE | ~2025-08-30 | XR_ITS ---
Examination: XR chest ET placement Clinical History: intubation Comparison: CT chest hours prior Technique: Portable AP Findings: ET tube, NG tube. Right chest Mediport. Mild cardiomegaly. Pleural effusions less evident than on CT. Bilateral atelectasis also less evident. Loculated effusion right apex. No pneumothorax. No acute bony abnormality. IMPRESSION: 1. Large pleural effusions and significant bibasilar atelectasis and/or airspace disease much less evident than on CT hours prior. Reviewed, dictated and finalized at location R. IMPRESSION: 1. Large pleural effusions and significant bibasilar atelectasis and/or airspa ce disease much less evident than on CT hours prior.
--- NOTE | ~2025-08-30 | XR_ITS ---
EXAMINATION: XR chest 1V portable COMPARISON: No comparisons available. HISTORY: Pneumonia, respiratory failure, pleural effusion FINDINGS: Small basilar infiltrates are slightly progressed compared to the prior study. Moderate pulmonary venous congestion. No pneumothorax. Stable cardiomegaly. Mediastinal and hilar contours are within normal limits. Post sternotomy. Miscellaneous: ET tube 2 cm above the srinivas, right Mediport in the SVC, nasogastric tube in the stomach. Impression: Mild progression Reviewed, dictated and finalized at location P. Impression: Mild progression
--- NOTE | ~2025-08-30 | US_ITS ---
EXAMINATION: US carotid duplex BI DATE: 09/03/2025 17:00 INDICATION: Possible stenosis versus dissection at the bilateral carotid bulbs on prior CT. TECHNIQUE: Grayscale, color Doppler, and pulsed Doppler images of the cervical carotid arteries were obtained. The degree of vessel stenosis is placed in one of the following categories: normal, <50%, 50-69%, >=70% but less than near- occlusion, near-occlusion, or total occlusion. Note that percent stenosis relative to normal distal artery lumen diameter is indirectly measured from velocity measurements as described by Remigio, et al. Radiology 2003; 229:340-346. COMPARISON: None. FINDINGS: RIGHT: The right common carotid artery (CCA) peak systolic velocity (PSV) is 76 cm/s. The right internal carotid artery (ICA) PSV is 466 cm/s. The right ICA end- diastolic velocity (EDV) is 108 cm/s. The right ICA/CCA PSV ratio is 6.1. Grayscale and color Doppler images yield an estimate of >=70% (but less than near occlusion) diameter reduction from plaque in the ICA. The external carotid artery (ECA) PSV is 209 cm/s. There is antegrade flow in the right vertebral artery. LEFT: The left CCA PSV is 100 cm/s. The left ICA PSV is 415 cm/s. The left ICA EDV is 128 cm/s. The left ICA/CCA PSV ratio is 4.1. Grayscale and color Doppler images yield an estimate of >=70% (but less than near occlusion) diameter reduction from plaque in the ICA. The ECA PSV is 341 cm/s. There is antegrade flow in the left vertebral artery. IMPRESSION: 1. >=70% (but less than near occlusion) stenosis in the right internal carotid artery. 2. >=70% (but less than near occlusion) stenosis in the left internal carotid artery. 3. The degree of stenosis indicated by the increased velocities is greater than would be expected given the amount of calcified atherosclerotic plaque evident on the prior CT angiogram. This suggests that the lower density linear filling defects at the bilateral carotid bulbs seen on the prior CT angiogram are not artifactual and likely to represent small dissection flaps. Reviewed, dictated and finalized at location A. IMPRESSION: 1. >=70% (but less than near occlusion) stenosis in the right internal carotid artery. 2. >=70% (but less than near occlusion) stenosis in the left internal carotid a rtery. 3. The degree of stenosis indicated by the increased velocities is greater than would be expected given the amount of calcified atherosclerotic plaque evident on the prior CT angiogram. This suggests that the lower density linear filling defects at the bilateral carotid bulbs seen on the prior CT angiogram are not artifactual and likely to represent small dissection flaps.
--- NOTE | ~2025-08-30 | CT_ITS ---
CT diagnostic chest wo con HISTORY:pneumonia COMPARISON: None. TECHNIQUE: Axial images of the chest were obtained without infusion of intravenous contrast. Dose optimization technique was utilized. FINDINGS: The examination demonstrates moderate loculated right pleural effusion and small left pleural effusion. There is fluid within the fissures bilaterally. Patchy infiltrates bilaterally. Small bilateral noted within the right lower lobe. There is scarring at the right lung apex. Enlarged mediastinal lymph nodes are noted measuring 12 mm. The thoracic aorta is normal in caliber. Sclerotic changes are noted within T9 vertebral body suggestive of metastases. IMPRESSION: Moderate loculated right pleural effusion and small left pleural effusion. Patchy infiltrates are present bilaterally. There is mediastinal lymphadenopathy. Sclerotic changes within the T9 vertebral body suggestive of metastasis. All CT scans at this facility are performed using low dose modulation techniques as appropriate to perform exam including the following: automated exposure control; use of iterative reconstruction technique; adjustment of the mA and/or kV according to patient size (this includes techniques or standardized protocols for targeted exams where dose is matched to indication/reason for exam). Reviewed, dictated and finalized at location S. IMPRESSION: Moderate loculated right pleural effusion and small left pleural effusion. Patchy infiltrates are present bilaterally. There is mediastinal lymphadenopathy. Sclerotic changes within the T9 vertebral body suggestive of metastasis. All CT scans at this facility are performed using low dose modulation techniqu es as appropriate to perform exam including the following: automated exposure c ontrol; use of iterative reconstruction technique; adjustment of the mA and/or kV according to patient size (this includes techniques or standardized protocol s for targeted exams where dose is matched to indication/reason for exam).
--- NOTE | ~2025-08-30 | XR_ITS ---
Examination: XR chest 2V Clinical History: weakness, SOB Comparison: CTA chest 02/19/2025 Technique: PA and Lateral Findings: Right chest Mediport. Cardiomediastinal silhouette normal size and configuration. Chronic scarring and interstitial changes. Worsening left lung base. No acute bony abnormality. IMPRESSION: 1. Mild worsening interstitial changes left lung base. Pneumonitis or developing airspace disease not excluded. Reviewed, dictated and finalized at location R. IMPRESSION: 1. Mild worsening interstitial changes left lung base. Pneumonitis or developi ng airspace disease not excluded.
--- NOTE | ~2025-08-30 | XR_ITS ---
EXAMINATION: XR chest 1V portable COMPARISON: No comparisons available. HISTORY: Pneumonia, respiratory failure, pleural effusion FINDINGS: Small basilar infiltrates. No pneumothorax. Heart is normal size. Mediastinal and hilar contours are within normal limits. Poststernotomy. Miscellaneous: Right Mediport in the SVC. Impression: Basilar probable pneumonia. The findings appear slightly improved. Reviewed, dictated and finalized at location P. Impression: Basilar probable pneumonia. The findings appear slightly improved.
--- NOTE | ~2025-08-30 | XR_ITS ---
EXAMINATION: XR chest 1V portable DATE: 09/05/2025 06:50 INDICATION: Pneumonia. Respiratory failure. Pleural effusion. TECHNIQUE: frontal view of the chest was obtained. COMPARISON: Chest radiograph dated 09/04/2025 FINDINGS: Endotracheal tube tip 2.9 cm above the srinivas. Nasogastric tube with distal tip in proximal side port in the stomach. Right internal jugular central venous port catheter with distal tip at the superior cavoatrial junction. Again seen is a volume loss in right hemithorax with suture line at the right apex consistent with prior partial right pneumonectomy. Very small left and small right pleural effusion with blunting at costophrenic angles and portion of the right pleural effusion loculated over the right apex. No significant change in airspace opacities in the right mid to lower and left lower lung zones represent atelectasis and/or pneumonia. Heart size is normal. Median sternotomy wires and mediastinal surgical clips are seen, likely from prior coronary artery bypass grafting. IMPRESSION: 1. No significant change in small bilateral pleural effusions, right greater than left, with associated atelectasis and/or pneumonia in the right mid to lower and left lower lung zones. Reviewed, dictated and finalized at location A. IMPRESSION: 1. No significant change in small bilateral pleural effusions, right greater th an left, with associated atelectasis and/or pneumonia in the right mid to lower and left lower lung zones.
--- NOTE | ~2025-08-30 | XR_ITS ---
XR chest 1V portable 09/08/2025 05:17 Indication: Pneumonia. Respiratory failure. Procedure: AP portable chest Comparison: Comparison to multiple prior studies sequentially, with oldest reviewed study dated 09/05/2025. Findings: Hazy bilateral airspace opacification of both lungs, right greater than left. Status post median sternotomy for CABG. NG tube in the stomach. Endotracheal tube tip 3.8 cm above the srinivas. Portacatheter tip near the cavoatrial junction. Small left pleural effusion. No pneumothorax. Impression: 1: Hazy diffuse bilateral airspace disease is stable. Differential diagnosis includes edema and pneumonia. Reviewed, dictated and finalized at location B. Impression: 1: Hazy diffuse bilateral airspace disease is stable. Differential diagnosis in cludes edema and pneumonia.
--- NOTE | ~2025-08-30 | CT_ITS ---
CT HEAD NON-CONTRAST Clinical History: UNEQUAL PUPILS Comparison: CTA brain hours earlier Technique: Unenhanced axial images skull base to vertex Coronal, sagittal reformats CT images acquired with automatic exposure control for dose reduction DLP: 757 mGy-cm Findings: White matter changes, typically chronic microvascular ischemic disease. Sulci, ventricles: Unremarkable. No intracerebral hemorrhage. No evidence acute territorial infarct. No mass effect, midline shift. Bony calvarium intact. Visualized paranasal sinuses: Right maxillary disease. Mild ethmoid and sphenoid disease. Mastoid air cells: Small fluid. IMPRESSION: 1. No acute intracranial findings. Reviewed, dictated and finalized at location R.
--- NOTE | ~2025-08-30 | XR_ITS ---
EXAMINATION: XR chest 1V portable DATE: 09/04/2025 05:21 INDICATION: Pneumonia. Pleural effusion. Respiratory failure. TECHNIQUE: frontal view of the chest was obtained. COMPARISON: Chest radiograph dated 09/03/2025 FINDINGS: Endotracheal tube tip 2.7 cm above the srinivas. Nasogastric tube with distal tip in proximal side port in stomach. Right internal jugular central venous port catheter with distal tip in the right atrium. Suture line at the margin of an airspace opacity right apex consistent with prior pneumonectomy and likely adjacent loculated pleural effusion. Hazy opacities throughout the right hemithorax and left mid to lower lung zone with blunting of the costophrenic angles consistent with small bilateral posterior layering pleural effusions. Mild patchy airspace opacities in the right mid to lower and left lower lung zones which could represent atelectasis and/or pneumonia. No pneumothorax. Cardiomegaly. Median sternotomy wires and mediastinal surgical clips are seen, likely from prior coronary artery bypass grafting. IMPRESSION: 1. Small bilateral pleural effusions, right greater than left with associated atelectasis and/or pneumonia in the right mid to lower and left lower lung zones. Reviewed, dictated and finalized at location A. IMPRESSION: 1. Small bilateral pleural effusions, right greater than left with associated a telectasis and/or pneumonia in the right mid to lower and left lower lung zones .
--- NOTE | ~2025-08-30 | XR_ITS ---
XR abdomen gastric tube insert INDICATION: Evaluate NG tube position. TECHNIQUE: Limited KUB perform for evaluating NG tube . COMPARISON: No prior studies for comparison. FINDINGS: NG tube tip in the stomach. Visualized bowel gas pattern is unremarkable.Central line tip in the right atrium. Status post median sternotomy. There is bibasilar airspace disease, nonspecific. Small pleural effusions. There are gallstones. IMPRESSION: 1: NG tube tip in the stomach. 2: Bibasilar airspace disease may represent edema or pneumonia. Reviewed, dictated and finalized at location O.
--- NOTE | 2025-08-30 09:13 | ECG_ITS ---
Test Date: 2025-08-30 09:17:00 Measurements Intervals Dexter Rate: 104 P: 24 ND: 151 QRS: -68 QRSD: 153 T: 37 QT: 345 QTc: 455 Interpretive Statements SINUS TACHYCARDIA WITH OCCASIONAL SUPRAVENTRICULAR PREMATURE COMPLEXES POSSIBLE LEFT ATRIAL ENLARGEMENT RIGHT BUNDLE BRANCH BLOCK LEFT ANTERIOR FASCICULAR BLOCK BASELINE ARTIFACT- I, II, III, AVR, AVL, AVF, V3 ABNORMAL ECG No previous ECG available for comparison Electronically Signed On 08-30-2025 10:51:49 CDT by Bernabe Estrada D.O.
[2025-08-30 09:49] LABS: Hematocrit 23.3 % (42.0-52.0); Hemoglobin 7.9 g/dL (14.0-18.0); Immature Granulocyte Percent A 1.4 % (0-0.5); Lymphocytes Absolute Auto 0.19 K/mm3 (0.9-3.2); Mean Corpuscular HGB Conc 33.9 g/dl (32-36); Mean Corpuscular Hemoglobin 31.2 pg (26-34); Mean Corpuscular Volume 92.1 fl (80-100); Nucleated Red Blood Cells Absolute Auto 0.000 K/mm3 (0.0-0.012); Nucleated Red Blood Cells Perc 0.0 % (0.0-0.2); Platelet Count Result 112 k/mm3 (150-375); Red Blood Count 2.53 M/mm3 (4.6-6.20)
[2025-08-30 09:54] LABS: White Blood Count 0.7 K/mm3 (4.5-10.0)
[2025-08-30 10:12] LABS: Alanine Aminotransferase 13 U/L (6-50); Albumin Level 2.5 g/dL (3.5-5.1); Alkaline Phosphatase 67 U/L (38-126); Anion Gap 3 mmol/L (4-12); Aspartate Amino Transferase 43 U/L (17-59); Bilirubin,Total 1.6 mg/dL (0.2-1.3); Blood Urea Nitrogen 23 mg/dL (9-20); Calcium 7.7 mg/dL (8.4-10.2); Carbon Dioxide 26 mmol/L (22-30); Chloride 100 mmol/L (98-107); Estimated CRCL calculation 85 ml/min; Estimated Glomerular Filt Rate > 60; Glucose 92 mg/dL (65-110); Potassium 4.0 mmol/L (3.4-5.0); Sodium 129 mmol/L (137-145); Total Protein 4.6 g/dL (6.3-8.2)
--- NOTE | 2025-08-30 10:41 | ED.GENADULT ---
HPI - General Adult General Chief complaint: Weakness Stated complaint: weak, SOB Time Seen by Provider: 08/30/25 09:23 History of Present Illness HPI narrative: 75-year-old male presents to the emergency department for evaluation for increased generalized weakness while on chemotherapy. Patient is being treated by Dr Walsh for metastatic prostate cancer. Patient last received chemotherapy on 08/26. Patient states since then he has had increased generalized weakness. Patient does have a fungal balanitis and is on antifungals. Patient does report some shortness of breath. Patient was reported to have a fever at home. Emergency department patient did not have a documented fever. Patient is neutropenic with a white blood cell count of 0.7 and absolute neutrophils of 0.4. Patient does have hemoglobin of 7.9. Patient's kidney function is similar to his baseline. Chest x-ray was concerning for pneumonitis. Blood cultures were ordered and patient was started on cefepime and vancomycin with blood cultures and MRSA swab pending. Related Data Home Medications ?Medication ?Instructions ?Recorded ?Confirmed ?Last Taken ?Type cholecalciferol (vitamin D3) 125 5,000 unit PO DAILY 10/17/19 08/30/25 07/21/25 History mcg (5,000 unit) capsule mesalamine 1.2 gram tablet,delayed 2.4 gm PO DAILY 10/17/19 08/30/25 07/21/25 History release (Lialda) metoprolol succinate 25 mg 25 mg PO HS 10/17/19 08/30/25 07/20/25 History tablet,extended release 24 hr (Toprol XL) multivitamin 1 tablet PO DAILY 10/17/19 08/30/25 07/21/25 History alprazolam 0.25 mg tablet (Xanax) 0.25 mg PO QHS PRN anxiety 04/26/25 08/30/25 04/25/25 History triamcinolone acetonide 0.1 % 1 applic topical PRN 04/26/25 08/30/25 Unknown History topical cream abiraterone 250 mg tablet 1,000 mg PO DAILY 06/22/25 08/30/25 07/21/25 History lidocaine-prilocaine 2.5 %-2.5 % 1 applic topical DAILY PRN pain 06/22/25 08/30/25 Unknown History topical cream ondansetron 8 mg disintegrating 8 mg PO Q8-12H PRN nausea and 06/22/25 08/30/25 Unknown History tablet vomiting prednisone 5 mg tablet 5 mg PO Q12H 06/22/25 08/30/25 07/21/25 History mupirocin 2 % topical ointment 1 applic topical BID 07/22/25 08/30/25 Unknown History ferrous sulfate 325 mg (65 mg 325 mg PO DAILY 08/10/25 08/30/25 Unknown History iron) tablet (Feosol) vitamin B12 500 mcg-folic acid 400 1 tablet PO DAILY 08/10/25 08/30/25 Unknown History mcg tablet tamsulosin 0.4 mg capsule mg PO 08/30/25 Unknown History Allergies Allergy/AdvReac Type Severity Reaction Status Date / Time escitalopram Allergy Unknown Asthma Verified 08/30/25 09:31 sildenafil Allergy Unknown Hypotension Verified 08/30/25 09:31 Penicillins AdvReac Mild Diarrhea Verified 08/30/25 09:31 amoxicillin AdvReac Unknown Diarrhea Verified 08/30/25 09:31 ciprofloxacin AdvReac Unknown Diarrhea Verified 08/30/25 09:31 gemfibrozil AdvReac Unknown myalgias Verified 08/30/25 09:31 lactase AdvReac Unknown Nausea Verified 08/30/25 09:31 Review of Systems Review of Systems: All systems reviewed & are unremarkable except as noted in HPI and below PMFSH Past Medical History Medical History Aneurysm of popliteal artery Allergic rhinitis Deviated nasal septum Anterior epistaxis Squamous cell carcinoma lung Anxiety Fistula Bundle branch block, right COPD (chronic obstructive pulmonary disease) Coronary artery disease Proctitis Ulcerative colitis Surgical History Surgical History Port-A-Cath in place 01/14/25 Placement right internal jugular vein Port-A-Cath using ultrasound and under fluoroscopy per Dr. Arenas History of lobectomy of lung S/P pneumonectomy H/O heart bypass surgery History of colon surgery Family History Family History Father Asthma Mother Acute myocardial infarction Son Carcinoma of colon Other Family history of cardiovascular disease Social History Social History Social History: Caffeine-tea Smoking packs per day: 2 Smoking cigarettes per day: 40.0 Years smoked: 35 Smoking pack-years: 70.00 Smoking status: Former smoker Second hand tobacco smoke exposure: No Smoking end date: 08/30/05 Alcohol intake: never Substance use: never Substance use type: does not use Do You Feel Safe in your Home?: Yes Lack of Transportation: No Lack of Food: Never True Current Housing: I Have Housing Concerned About Future Housing: No Difficulty Paying Gas/Electric Bills: No Difficulty Paying for Meds: No Currently Unemployed: No Education: Bachelor's Degree Difficulty w/ Childcare or Family Care: No Living arrangements: with family Additional living arrangements comments: Spiritual care concerns: No Exam Narrative: APPEARANCE: Ill-appearing HEAD: normocephalic, atraumatic. EYES: PERRLA/EOMI, conjunctivae clear. NOSE: Normal no drainage EARS:TMS clear with good light reflex. THROAT: Pharynx clear, no exudate. NECK: Supple. No adenopathy, no masses. RESPIRATORY: Airway patent, respirations nonlabored. Clear to auscultation bilaterally, no rales, rhonchi, wheezing. CARDIOVASCULAR: Regular rate and rhythm without murmurs rubs or gallops. ABDOMINAL: Soft, nontender, nondistended, normal bowel sounds MUSCULOSKELETAL: Moves all extremities. Strength/ROM intact, No edema, No calf tenderness. NEURO: Alert. Cranial nerves II through XII intact. Good gait. Good coordination SKIN: Warm, dry. Normal Color Course Vital Signs Vital signs: Vital Signs Temperature 98.6 F 08/30/25 09:17 Pulse Rate 102 H 08/30/25 09:17 Respiratory Rate 14 08/30/25 09:17 Blood Pressure 113/46 L 08/30/25 09:17 Pulse Oximetry 94 08/30/25 09:17 Oxygen Delivery Room Air 08/30/25 09:17 Temperature 97.9 F 08/30/25 16:00 Pulse Rate 117 H 08/30/25 18:00 Respiratory Rate 20 08/30/25 16:00 Blood Pressure 121/58 L 08/30/25 16:00 Pulse Oximetry 100 08/30/25 16:00 Oxygen Delivery Room Air 08/30/25 16:00 Oxygen Flow Rate 3 08/30/25 10:41 Medical Decision Making MDM Narrative Medical decision making narrative: 75-year-old male presents to the emergency department for evaluation for increased generalized weakness while on chemotherapy. Patient is being treated by Dr Walsh for metastatic prostate cancer. Patient last received chemotherapy on 08/26. Patient states since then he has had increased generalized weakness. Patient does have a fungal balanitis and is on antifungals. Patient does report some shortness of breath. Patient was reported to have a fever at home. Emergency department patient did not have a documented fever. Patient is neutropenic with a white blood cell count of 0.7 and absolute neutrophils of 0.4. Patient does have hemoglobin of 7.9. Patient's kidney function is similar to his baseline. Chest x-ray was concerning for pneumonitis. Blood cultures were ordered and patient was started on cefepime and vancomycin with blood cultures and MRSA swab pending. Case discussed with hospitalist and patient was accepted for admission. Patient family updated results of the workup. All questions concerns were addressed. Differential Diagnosis Differential Diagnosis: Pneumonia, COVID, RSV, influenza, UTI, neutropenia, neutropenic fever Vital Signs Vital Signs: Vital Signs Temperature 98.6 F 08/30/25 09:17 Pulse Rate 102 H 08/30/25 09:17 Respiratory Rate 14 08/30/25 09:17 Blood Pressure 113/46 L 08/30/25 09:17 Pulse Oximetry 94 08/30/25 09:17 Oxygen Delivery Room Air 08/30/25 09:17 Temperature 97.9 F 08/30/25 16:00 Pulse Rate 117 H 08/30/25 18:00 Respiratory Rate 20 08/30/25 16:00 Blood Pressure 121/58 L 08/30/25 16:00 Pulse Oximetry 100 08/30/25 16:00 Oxygen Delivery Room Air 08/30/25 16:00 Oxygen Flow Rate 3 08/30/25 10:41 Lab Data Lab results reviewed: Yes I reviewed the patient's lab results. 08/30/25 09:40 08/30/25 09:40 Labs: Lab Results 08/30/25 08/30/25 Range/Units 09:40 11:04 WBC 0.7 L* (4.5-10.0) K/mm3 RBC 2.53 L (4.6-6.20) M/mm3 Hgb 7.9 L (14.0-18.0) g/dL Hct 23.3 L (42.0-52.0) % MCV 92.1 (80-100) fl MCH 31.2 (26-34) pg MCHC 33.9 (32-36) g/dl RDW 17.1 H (11.5-14.5) % Plt Count 112 L (150-375) k/mm3 MPV 11.0 H (7.4-10.4) fl Immature Gran % (Auto) 1.4 H (0-0.5) % Neut % (Auto) 54.9 (45.5-73.1) % Lymph % (Auto) 26.8 (18.3-44.2) % Jennings % (Auto) 14.1 H (2.6-8.5) % Eos % (Auto) 0.0 (0-4.4) % Baso % (Auto) 2.8 H (0.2-1.2) % Lymph # (Auto) 0.19 L (0.9-3.2) K/mm3 Jennings # (Auto) 0.1 (0.1-0.6) K/mm3 Eos # (Auto) 0.0 (0-0.3) K/mm3 Baso # (Auto) 0.0 (0.0-0.1) K/mm3 Abs Immat Gran (auto) 0.01 (0.00-0.031) K/mm3 Absolute Neuts (auto) 0.4 L* (1.3-6.7) K/mm3 Absolute Nucleated RBC 0.000 (0.0-0.012) K/mm3 Nucleated RBC % 0.0 (0.0-0.2) % Sodium 129 L (137-145) mmol/L Potassium 4.0 (3.4-5.0) mmol/L Chloride 100 (98-107) mmol/L Carbon Dioxide 26 (22-30) mmol/L Anion Gap 3 L (4-12) mmol/L BUN 23 H (9-20) mg/dL Creatinine 0.60 L (0.7-1.3) mg/dL Estim Creat Clear Calc 85 ml/min Estimated GFR > 60 (59 - ) Glucose 92 (65-110) mg/dL Calcium 7.7 L (8.4-10.2) mg/dL Total Bilirubin 1.6 H (0.2-1.3) mg/dL AST 43 (17-59) U/L ALT 13 (6-50) U/L Alkaline Phosphatase 67 (38-126) U/L C-Reactive Protein 18.6 H (<1.0) mg/dL Total Protein 4.6 L (6.3-8.2) g/dL Albumin 2.5 L (3.5-5.1) g/dL Nasal MRSA (PCR) Not detected (NOT DETECTE) Influenza A (RT-PCR) Negative (Negative) Influenza B (RT-PCR) Negative (Negative) RSV (RT-PCR) Negative (Negative) SARS-CoV-2 RNA (RT-PCR) Negative (Negative) Imaging Data Radiologist's impression: Impressions Chest X-Ray 08/30/25 10:13 IMPRESSION: 1. Mild worsening interstitial changes left lung base. Pneumonitis or developing airspace disease not excluded. Discharge Plan Discharge Clinical Impression: Fever and neutropenia, Pneumonia Patient Disposition: Still a Patient Condition: Serious
[2025-08-30 11:36] LABS: CRP 18.6 mg/dL (<1.0)
[2025-08-30 11:46] LABS: Influenza A QL RT-PCR Negative (Negative); Influenza B QL RT-PCR Negative (Negative); RSV RNA, RT-PCR Negative (Negative); SARS-CoV-2 RNA PCR Negative (Negative)
[2025-08-30] MEDS: fentaNYL CITRATE INJ (*CRX) 100 MCG/2 ML VIAL 50 MCG IV PUSH ×2 (12:05→20:24)
[2025-08-30] MEDS: CEFEPIME 2 GM in SODIUM CHLORIDE 0.9% IV 50 ML 100 ML IVPB ×2 (12:12→21:41)
[2025-08-30] MEDS: LACTATED RINGERS 1,000 ML 999 ML IV CONT ×2 (12:18→12:38)
[2025-08-30 12:20] LABS: MRSA (PCR) NOT DETECTED (NOT DETECTE)
[2025-08-30] MEDS: VANCOMYCIN 1,750 MG/NS 500 ML 1,750 MG/500 ML BAG 250 MG IVPB (12:35)
--- NOTE | 2025-08-30 14:17 | PM.IMHP ---
H&P: HPI History of Present Illness Date/Time: 08/30/25 14:17 Chief Complaint: presented to the with Gen weakness and fever Narrative: 75yo M with Prostate ca on Chemo presented to [facility] Er with generalized weakness. ria noted his appetite has been very poor the last week mostly due to oral pain. Otherwise noted he was recently diagnosed of yeast balanitis by his PCP and was placed on medication however no respite from the symtptoms . Otherwise denies any chest pain, SOB, abd pain, diarrhea or focal symptoms. Fever noted at home ER evaluation notable for possible 2, temperature 98.6?, blood pressure 130/46, saturating 94% on room air. Labs notable for WBC 0.7, hemoglobin 7.9, platelets 112, sodium 129, MRSA negative. Chest x-ray showed a possible pneumonia. Review of Systems Review of Systems: Other systems are reviewed and negative except as noted in history above. [facility] Past Medical History Medical History Aneurysm of popliteal artery Allergic rhinitis Deviated nasal septum Anterior epistaxis Squamous cell carcinoma lung Anxiety Fistula Bundle branch block, right COPD (chronic obstructive pulmonary disease) Coronary artery disease Proctitis Ulcerative colitis Surgical History Surgical History Port-A-Cath in place 01/14/25 Placement right internal jugular vein Port-A-Cath using ultrasound and under fluoroscopy per Dr. Arenas History of lobectomy of lung S/P pneumonectomy H/O heart bypass surgery History of colon surgery Family History Family History Father Asthma Mother Acute myocardial infarction Son Carcinoma of colon Other Family history of cardiovascular disease Social History Social History Social History: Caffeine-tea Smoking packs per day: 2 Smoking cigarettes per day: 40.0 Years smoked: 35 Smoking pack-years: 70.00 Smoking status: Former smoker Second hand tobacco smoke exposure: No Alcohol intake: never Substance use: never Substance use type: does not use Do You Feel Safe in your Home?: Yes Lack of Transportation: No Lack of Food: Never True Current Housing: I Have Housing Concerned About Future Housing: No Difficulty Paying Gas/Electric Bills: No Difficulty Paying for Meds: No Currently Unemployed: No Education: Bachelor's Degree Difficulty w/ Childcare or Family Care: No Living arrangements: with family Additional living arrangements comments: Spiritual care concerns: No Meds Home Medications and Allergies Home Medications ?Medication ?Instructions ?Recorded ?Confirmed ?Type cholecalciferol (vitamin D3) 125 5,000 unit PO DAILY 10/17/19 08/30/25 History mcg (5,000 unit) capsule mesalamine 1.2 gram tablet,delayed 2.4 gm PO DAILY 10/17/19 08/30/25 History release (Lialda) metoprolol succinate 25 mg 25 mg PO HS 10/17/19 08/30/25 History tablet,extended release 24 hr (Toprol XL) multivitamin 1 tablet PO DAILY 10/17/19 08/30/25 History fenofibrate 160 mg tablet See Rx Instructions .Route 12/01/24 08/30/25 Rx .COMPLEX #90 tabs alprazolam 0.25 mg tablet (Xanax) 0.25 mg PO QHS PRN anxiety 04/26/25 08/30/25 History triamcinolone acetonide 0.1 % 1 applic topical PRN 04/26/25 08/30/25 History topical cream abiraterone 250 mg tablet 1,000 mg PO DAILY 06/22/25 08/30/25 History lidocaine-prilocaine 2.5 %-2.5 % 1 applic topical DAILY PRN pain 06/22/25 08/30/25 History topical cream ondansetron 8 mg disintegrating 8 mg PO Q8-12H PRN nausea and 06/22/25 08/30/25 History tablet vomiting prednisone 5 mg tablet 5 mg PO Q12H 06/22/25 08/30/25 History mupirocin 2 % topical ointment 1 applic topical BID 07/22/25 08/30/25 History ferrous sulfate 325 mg (65 mg 325 mg PO DAILY 08/10/25 08/30/25 History iron) tablet (Feosol) vitamin B12 500 mcg-folic acid 400 1 tablet PO DAILY 08/10/25 08/30/25 History mcg tablet simvastatin 20 mg tablet (Zocor) 20 mg PO HS #90 tabs 08/19/25 08/30/25 Rx terbinafine HCl 1 % topical cream 1 applic topical BID #30 grams 08/27/25 08/30/25 Rx (Lamisil AT) pregabalin 100 mg capsule (Lyrica) 100 mg PO Q8H 90 days #270 caps 08/28/25 08/30/25 Rx terbinafine HCl 250 mg tablet 250 mg PO DAILY #30 tabs 08/28/25 08/30/25 Rx tamsulosin 0.4 mg capsule mg PO 08/30/25 History Allergies Allergy/AdvReac Type Severity Reaction Status Date / Time escitalopram Allergy Unknown Asthma Verified 08/30/25 09:31 sildenafil Allergy Unknown Hypotension Verified 08/30/25 09:31 Penicillins AdvReac Mild Diarrhea Verified 08/30/25 09:31 amoxicillin AdvReac Unknown Diarrhea Verified 08/30/25 09:31 ciprofloxacin AdvReac Unknown Diarrhea Verified 08/30/25 09:31 gemfibrozil AdvReac Unknown myalgias Verified 08/30/25 09:31 lactase AdvReac Unknown Nausea Verified 08/30/25 09:31 Vital Signs Vital Signs - 24 hr 08/30/25 09:17 08/30/25 09:18 08/30/25 09:19 Temperature 98.6 F Pulse Rate 102 H 107 H 106 H Respiratory Rate 14 17 16 Blood Pressure 113/46 L 113/46 L Pulse Oximetry 94 Oxygen Delivery Room Air Oxygen Flow Rate 08/30/25 09:30 08/30/25 09:54 08/30/25 10:10 Temperature Pulse Rate 105 H 100 Respiratory Rate 13 17 Blood Pressure 100/55 L Pulse Oximetry 97 100 Oxygen Delivery Oxygen Flow Rate 08/30/25 10:17 08/30/25 10:30 08/30/25 10:41 Temperature Pulse Rate 99 102 H Respiratory Rate 15 19 Blood Pressure Pulse Oximetry 100 100 100 Oxygen Delivery Nasal Cannula Oxygen Flow Rate 3 08/30/25 10:41 08/30/25 10:45 08/30/25 10:46 Temperature Pulse Rate 104 H 105 H Respiratory Rate 13 15 Blood Pressure 106/49 L Pulse Oximetry 95 96 96 Oxygen Delivery Room Air Oxygen Flow Rate 08/30/25 11:18 08/30/25 11:30 08/30/25 11:31 Temperature Pulse Rate 103 H 109 H 110 H Respiratory Rate 15 17 21 H Blood Pressure 120/61 Pulse Oximetry 94 94 95 Oxygen Delivery Oxygen Flow Rate 08/30/25 11:45 08/30/25 11:46 08/30/25 12:00 Temperature Pulse Rate 111 H 110 H 110 H Respiratory Rate 17 17 16 Blood Pressure 106/66 Pulse Oximetry 94 96 97 Oxygen Delivery Oxygen Flow Rate 08/30/25 12:01 08/30/25 12:15 08/30/25 12:50 Temperature Pulse Rate 108 H 98 104 H Respiratory Rate 15 11 L 16 Blood Pressure 102/48 L Pulse Oximetry 96 89 L 100 Oxygen Delivery Oxygen Flow Rate 08/30/25 13:00 08/30/25 13:01 08/30/25 13:15 Temperature Pulse Rate 102 H 103 H 102 H Respiratory Rate 12 13 16 Blood Pressure 123/62 123/58 L Pulse Oximetry 100 100 100 Oxygen Delivery Oxygen Flow Rate 08/30/25 13:16 Temperature Pulse Rate 107 H Respiratory Rate 13 Blood Pressure Pulse Oximetry 100 Oxygen Delivery Oxygen Flow Rate Exam Narrative: General: alert and comfortable Eyes: EOMI, PERRLA ENNT External ears normal, Neck is supple, no masses, Respiratory systems: Clear to auscultation Cardiovascular S1, S2, normal rhythm, no murmur, rub, or gallop; no thrill or palpable murmurs on palpation. Gastrointestinal: soft, non-tender, and non-distended abdomen with no masses; BS present Skin: no rash, lesions, ulcerations, subcutaneous nodules or induration Musculoskeletal: no abnormality and no tenderness, normal ROM Neurologic: Alert and oriented x3, non focal Mental Status Exam: normal affect : erythematous ulcer glans penis H&P: Results Labs Labs: Short CBC 08/30/25 Range/Units 09:40 WBC 0.7 L* (4.5-10.0) K/mm3 Hgb 7.9 L (14.0-18.0) g/dL Hct 23.3 L (42.0-52.0) % Plt Count 112 L (150-375) k/mm3 BMP 08/30/25 09:40 Sodium 129 L Potassium 4.0 Chloride 100 Carbon Dioxide 26 BUN 23 H Creatinine 0.60 L Glucose 92 Calcium 7.7 L Liver Function 08/30/25 Range/Units 09:40 Total Bilirubin 1.6 H (0.2-1.3) mg/dL AST 43 (17-59) U/L ALT 13 (6-50) U/L Alkaline Phosphatase 67 (38-126) U/L Albumin 2.5 L (3.5-5.1) g/dL Assessment and Plan Assessment and plan (1) Failure to thrive: Qualifiers: Failure to thrive age range: in adult Qualified Code(s): R62.7 - Adult failure to thrive Status: Acute Plan Neutropenic fever Patient recently had chemotherapy, follow up with Dr Walsh WBC 0.7 noted fever at home Blood culture pending CXR showed pneumonitis Continue Cefepime and Vanc Dr Walsh consulted monitor Yeast Balanitis Started on fluconazole Neutropenic mucositis ulcers noted on buccal exam Continue abx and monitor FTT/Protein energy malnutrition Patient noted poor oral intake the past week Protein supplements, IVF Dietitian consulted Pancytopenia Chemo-related Continue above care Monitor Lung and Prostate ca Continue follow up with Oncology on dishcharge COPD not in exacerbation contineu PRN Duonebs CAD s/p CABG conitneu home meds DVT prophylaxis on Sq Lvoenox Full code SDM: Anabell Roberson
[2025-08-30] MEDS: FLUCONAZOLE 200 MG/NACL 100 ML 200 MG/100 ML BAG 100 MG IVPB (14:55)
[2025-08-30] MEDS: LIDOCAINE 2% VISC SOLN 30 ML, ALUMINUM/MAGNESIUM/SIMETH SUSP 30 ML, diphenhydrAMINE HCl... PO ×2 (14:58→21:47)
[2025-08-30] MEDS: SODIUM CHLORIDE 0.9% IV 1,000 ML 75 ML IV CONT (15:03)
--- NOTE | 2025-08-30 17:03 | ADMGEN ---
This patient, Gume Roberson Jr., was admitted to IMU Room 214-01. Patient/family oriented to hospital policies and general routines including ID bracelet, bed and alarms, visiting hours, pain management, procedures, bathroom and other care routines, personal items, smoking policy, room service/diet, and visiting hours. Information on how to activate the Rapid Response Team has been discussed. Patient/Family are encouraged to report perceived risks to care and to ask questions if they do not understand what they are told or what they should do.
[2025-08-30] MEDS: LIDOCAINE 4% SOLN 50 ML BTL 1 APPLIC TOPICAL (21:26)
[2025-08-30 22:12] LABS: Add Urine Microscopic? YES; Appearance Urine Clear (Clear); Glucose Urine UA Negative (Negative); Leukocyte Esterase Ur Negative LEU/UL (Negative); Nitrate Urine Negative (Negative); Non Pathogenic Casts 0-2; Specific Grav Ur 1.027 (1.001-1.035)
[2025-08-30] MEDS: ALPRAZolam (*CRX) 0.25 MG TABLET PO (22:51)
[2025-08-31] VITALS (19 sets, daily range): BP systolic 114–140; BP diastolic 40–63; PULSE 100–121; RESP 16–22; TEMP 36.6–37.1; O2SAT 92–99; BMI 21.8
[2025-08-31] MEDS: fentaNYL CITRATE INJ (*CRX) 100 MCG/2 ML VIAL 50 MCG IV PUSH ×2 (00:18→22:38)
[2025-08-31] MEDS: VANCOMYCIN 1,250 MG/NS 250 ML 1,250 MG/250 ML BAG 166.67 MG IVPB ×2 (01:14→17:56)
[2025-08-31 04:27] LABS: Hematocrit 23.8 % (42.0-52.0); Hemoglobin 8.0 g/dL (14.0-18.0); Immature Granulocyte Percent A 1.2 % (0-0.5); Lymphocytes Absolute Auto 0.24 K/mm3 (0.9-3.2); Mean Corpuscular HGB Conc 33.6 g/dl (32-36); Mean Corpuscular Hemoglobin 31.3 pg (26-34); Mean Corpuscular Volume 93.0 fl (80-100); Nucleated Red Blood Cells Absolute Auto 0.000 K/mm3 (0.0-0.012); Nucleated Red Blood Cells Perc 0.0 % (0.0-0.2); Platelet Count Result 120 k/mm3 (150-375); Red Blood Count 2.56 M/mm3 (4.6-6.20)
[2025-08-31 04:46] LABS: Alanine Aminotransferase 12 U/L (6-50); Albumin Level 2.3 g/dL (3.5-5.1); Alkaline Phosphatase 65 U/L (38-126); Anion Gap 4 mmol/L (4-12); Aspartate Amino Transferase 40 U/L (17-59); Bilirubin,Total 1.3 mg/dL (0.2-1.3); Blood Urea Nitrogen 22 mg/dL (9-20); Calcium 7.4 mg/dL (8.4-10.2); Carbon Dioxide 22 mmol/L (22-30); Chloride 104 mmol/L (98-107); Estimated CRCL calculation 97 ml/min; Estimated Glomerular Filt Rate > 60; Glucose 99 mg/dL (65-110); Magnesium 1.9 mg/dL (1.6-2.3); Potassium 3.6 mmol/L (3.4-5.0); Sodium 130 mmol/L (137-145); Total Protein 4.7 g/dL (6.3-8.2)
[2025-08-31 04:59] LABS: White Blood Count 0.8 K/mm3 (4.5-10.0)
[2025-08-31] MEDS: ONDANSETRON INJ 4 MG/2 ML VIAL IV PUSH (05:24)
[2025-08-31] MEDS: SODIUM CHLORIDE 0.9% IV 1,000 ML 75 ML IV CONT (06:38)
[2025-08-31] MEDS: LIDOCAINE 2% VISC SOLN 30 ML, ALUMINUM/MAGNESIUM/SIMETH SUSP 30 ML, diphenhydrAMINE HCl... PO ×4 (06:39→20:53)
[2025-08-31] MEDS: CEFEPIME 2 GM in SODIUM CHLORIDE 0.9% IV 50 ML 100 ML IVPB ×2 (09:15→20:53)
[2025-08-31] MEDS: FLUCONAZOLE 200 MG/NACL 100 ML 200 MG/100 ML BAG 100 MG IVPB (09:15)
[2025-08-31] MEDS: LIDOCAINE 4% SOLN 50 ML BTL 1 APPLIC TOPICAL (09:34)
[2025-08-31] MEDS: ALPRAZolam (*CRX) 0.25 MG TABLET PO ×2 (10:29→20:53)
[2025-08-31] MEDS: AZITHROMYCIN IV 500 MG in SODIUM CHLORIDE 0.9% IV 250 ML IVPB (10:29)
[2025-08-31] MEDS: ALBUMIN HUMAN 25% 25 GM/100 ML 100 ML IVPB (11:34)
[2025-08-31] MEDS: METOPROLOL SUCCINATE EXT REL 25 MG TABCR PO (14:12)
[2025-08-31] MEDS: PREGABALIN (*CRX) 50 MG CAPSULE 100 MG PO ×2 (14:12→20:58)
--- NOTE | 2025-08-31 17:24 | PM.IMPN ---
Progress Note: A&P Assessment and Plan (1) Failure to thrive: Qualifiers: Failure to thrive age range: in adult Qualified Code(s): R62.7 - Adult failure to thrive Status: Acute Plan Neutropenic fever Patient recently had chemotherapy, follow up with Dr Walsh Patient has bifrontal cellulitis, thus will continue Vancomycin WBC 0.7 -->0.8 noted fever at home Blood culture pending CXR showed pneumonitis Continue Cefepime and Vanc Dr Walsh consulted monitor Yeast Balanitis on fluconazole Cellulitis bifrontal Continue Vanc and Cefepime and monitor Possible pneumonia CXR reviewed continue Cefepime, Azithromycin and Vanc monitor Neutropenic mucositis ulcers noted on buccal exam Continue abx and monitor FTT/Protein energy malnutrition Patient noted poor oral intake the past week Protein supplements, IVF Dietitian consulted Pancytopenia Chemo-related Continue above care Monitor Lung and Prostate ca Continue follow up with Oncology on discharge COPD not in exacerbation continue PRN Duonebs CAD s/p CABG continue home meds DVT prophylaxis on Sq Lovenox Full code SDM: Anabell Roberson Subjective Date/time seen: 08/31/25 17:24 Interval history: Comfortable at bedside WBC improving Review of Systems Review of Systems: Other systems are reviewed and negative except as noted in history above. Exam Narrative: General: alert and comfortable Eyes: EOMI, PERRLA ENNT External ears normal, Neck is supple, no masses, Respiratory systems: Clear to auscultation Cardiovascular S1, S2, normal rhythm, no murmur, rub, or gallop; no thrill or palpable murmurs on palpation. Gastrointestinal: soft, non-tender, and non-distended abdomen with no masses; BS present Skin: no rash, lesions, ulcerations, subcutaneous nodules or induration Musculoskeletal: no abnormality and no tenderness, normal ROM Neurologic: Alert and oriented x3, non focal Mental Status Exam: normal affect : erythematous ulcer glans penis Objective Data Vital Signs Vital Signs: Vital Signs - 24 hr 08/30/25 18:00 08/30/25 20:00 08/30/25 20:00 Temperature Pulse Rate 117 H 114 H Respiratory Rate Blood Pressure Pulse Oximetry Oxygen Delivery Room Air Oxygen Flow Rate Fraction of Inspired Oxygen 08/30/25 20:26 08/30/25 22:00 08/31/25 00:00 Temperature 98.5 F Pulse Rate 116 H 119 H 118 H Respiratory Rate 18 Blood Pressure 125/55 L Pulse Oximetry 93 Oxygen Delivery Oxygen Flow Rate Fraction of Inspired Oxygen 08/31/25 00:00 08/31/25 00:41 08/31/25 02:00 Temperature 98.5 F Pulse Rate 118 H 117 H Respiratory Rate 20 Blood Pressure 120/47 L Pulse Oximetry 96 Oxygen Delivery Room Air Oxygen Flow Rate Fraction of Inspired Oxygen 08/31/25 04:00 08/31/25 04:00 08/31/25 04:59 Temperature 98.2 F Pulse Rate 115 H 121 H Respiratory Rate 22 H Blood Pressure 119/48 L Pulse Oximetry 96 96 Oxygen Delivery Nasal Cannula Oxygen Flow Rate 2 Fraction of Inspired Oxygen 08/31/25 06:00 08/31/25 08:00 08/31/25 08:00 Temperature 98.6 F Pulse Rate 112 H 109 H 114 H Respiratory Rate 18 Blood Pressure 116/54 L Pulse Oximetry 99 Oxygen Delivery Oxygen Flow Rate Fraction of Inspired Oxygen 08/31/25 08:00 08/31/25 09:40 08/31/25 10:00 Temperature Pulse Rate 110 H Respiratory Rate Blood Pressure Pulse Oximetry 99 Oxygen Delivery Room Air Room Air Oxygen Flow Rate Fraction of Inspired Oxygen 21 08/31/25 11:52 08/31/25 12:00 08/31/25 12:00 Temperature 97.9 F Pulse Rate 115 H 106 H Respiratory Rate 16 Blood Pressure 114/49 L Pulse Oximetry 94 Oxygen Delivery Room Air Oxygen Flow Rate Fraction of Inspired Oxygen 08/31/25 14:00 08/31/25 14:12 08/31/25 16:00 Temperature Pulse Rate 117 H 113 H Respiratory Rate Blood Pressure Pulse Oximetry Oxygen Delivery Room Air Oxygen Flow Rate Fraction of Inspired Oxygen 08/31/25 16:00 08/31/25 16:17 Temperature 98.7 F Pulse Rate 105 H 100 Respiratory Rate 22 H Blood Pressure 116/63 Pulse Oximetry 92 Oxygen Delivery Oxygen Flow Rate Fraction of Inspired Oxygen Intake/Output Intake/Output: Intake & Output 08/28/25 08/29/25 08/30/25 08/31/25 23:59 23:59 23:59 23:59 Intake Total 3120 2600 Output Total 1050 Balance 3120 1550 Meds/Results Medications: Active Medications Generic Name Dose Route Start Last Admin Trade Name Freq PRN Reason Stop Dose Admin Acetaminophen 650 mg 08/30/25 10:58 Acetaminophen 325 Mg Tablet PO Q4H PRN Mild Pain (1-3) or Fever Alprazolam 0.25 mg 08/31/25 09:41 08/31/25 10:29 Alprazolam (*Crx) 0.25 Mg Tablet PO 0.25 mg TID PRN Administration Anxiety Lidocaine HCl 30 ml/ Al Hydrox 0 ml 08/30/25 17:00 08/31/25 14:25 /Mg Hydrox/Simethicone 30 ml/ PO Not Given Diphenhydramine HCl 75 mg Q4HWA DARIEN Fenofibrate 145 mg 09/01/25 09:00 Fenofibrate 145 Mg Tablet PO QAM DARIEN Fentanyl Citrate 50 mcg 08/30/25 10:58 08/31/25 00:18 Fentanyl Citrate Inj (*Crx) 100 Mcg/2 Ml Vial IV PUSH 50 mcg Q2H PRN Administration Pain Rated 7-10 Cefepime HCl 2 gm/ Sodium 50 mls @ 100 mls/hr 08/30/25 21:00 08/31/25 14:26 Chloride IVPB Infused Q12HR DARIEN Infusion Fluconazole 200 mg in 100 mls @ 100 mls/hr 08/30/25 14:10 08/31/25 14:26 Diflucan 200 Mg/Nacl 100 Ml IVPB Infused DAILY DARIEN Infusion Sodium Chloride 1,000 mls @ 75 mls/hr 08/30/25 14:30 08/31/25 06:38 Normal Saline Iv IV CONT 75 mls/hr .[id number] DARIEN Administration Azithromycin 500 mg/ Sodium 250 mls @ 250 mls/hr 08/31/25 10:30 08/31/25 14:26 Chloride IVPB 09/04/25 09:59 Infused DAILY DARIEN Infusion Lidocaine HCl 1 applic 08/30/25 20:34 08/31/25 09:34 Lidocaine 4% Soln 50 Ml Btl TOPICAL 1 applic PRN PRN Administration Pain Metoprolol Succinate 25 mg 08/31/25 13:45 08/31/25 14:12 Metoprolol Succinate Ext Rel 25 Mg Tabcr PO 25 mg QAM DARIEN Administration Pregabalin 100 mg 08/31/25 14:00 08/31/25 14:12 Pregabalin (*Crx) 50 Mg Capsule PO 100 mg Q8HR DARIEN Administration Tamsulosin HCl 0.4 mg 09/01/25 09:00 Tamsulosin Hcl 0.4 Mg Capsule PO DAILY [facility] Vitamin D 125 mcg 09/01/25 09:00 Cholecalciferol (Vitamin D3) 125 Mcg (5,000 Units) Tablet PO DAILY [facility] Radiology Results: ITS Impressions Chest X-Ray 08/30/25 10:13 IMPRESSION: 1. Mild worsening interstitial changes left lung base. Pneumonitis or developing airspace disease not excluded. Labs Labs: Laboratory Results - last 24 hr 08/30/25 08/31/25 21:54 04:09 WBC 0.8 L* RBC 2.56 L Hgb 8.0 L Hct 23.8 L MCV 93.0 MCH 31.3 MCHC 33.6 RDW 17.3 H Plt Count 120 L MPV 11.1 H Immature Gran % (Auto) 1.2 H Neut % (Auto) 50.7 Lymph % (Auto) 29.6 Pratt % (Auto) 14.8 H Eos % (Auto) 0.0 Baso % (Auto) 3.7 H Lymph # (Auto) 0.24 L Pratt # (Auto) 0.1 Eos # (Auto) 0.0 Baso # (Auto) 0.0 Abs Immat Gran (auto) 0.01 Absolute Neuts (auto) 0.4 L* Absolute Nucleated RBC 0.000 Nucleated RBC % 0.0 Sodium 130 L Potassium 3.6 Chloride 104 Carbon Dioxide 22 Anion Gap 4 BUN 22 H Creatinine 0.51 L Estim Creat Clear Calc 97 Estimated GFR > 60 Glucose 99 Lactic Acid 0.9 Calcium 7.4 L Magnesium 1.9 Total Bilirubin 1.3 AST 40 ALT 12 Alkaline Phosphatase 65 Total Protein 4.7 L Albumin 2.3 L Urine Color Dark yellow Urine Appearance Clear Urine pH 5.5 Ur Specific [place] 1.027 Urine Protein 1+ H Urine Glucose (UA) Negative Urine Ketones Trace H Ur Blood (Man) Negative Urine Nitrate Negative Urine Bilirubin 1+ H Urine Urobilinogen 1.0 Leukocyte Esterase Rfl Negative Urine RBC 3-5 H Urine WBC 0-5 Ur Squamous Epith Cells None seen Urine Bacteria None seen Urine Casts 0-2
--- NOTE | 2025-08-31 18:50 | WPDONCCN ---
Assessment and Plan Assessment and plan (1) Secondary malignant neoplasm of bone: Code(s): C79.51 - Secondary malignant neoplasm of bone Status: Acute Assessment and Plan: Metastatic prostate cancer. Patient was admitted to the hospital with failure to thrive and generalized weakness and found to be pancytopenic. He received last chemotherapy was cycle 3. Day number 29 on August 26. Patient is also on Zytiga with Lupron. Had a long discussion with patient and also the son visiting him from [place]. Will hold Zytiga and prednisone until complete bone marrow recovery. At this time we decided to discontinue any further chemotherapy that he is not able to tolerate. I will order labs including iron and vitamin B12 level. Will start him on Neupogen 480 mcg subcu until total white blood cell more than 5000. Patient will continue fluconazole for yeast balanitis and along with vancomycin and cefepime for febrile neutropenia on chemotherapy. He will follow-up with me in the office in 1 week. HPI Data of Consult Date/Time: 08/31/25 18:50 Requesting Physician: Rufino Sloan MD Primary Care Provider: Maykel Gramajo MD Consult Narrative Narrative: Patient is the 75-year-old pleasant male who was diagnosed with metastatic prostate cancer status post biopsy done on October 20, 2025. He was started on palliative chemotherapy with Taxotere on January 29, 2025 along with Lupron and Zytiga. Patient received cycle 3. Day number 29 of chemotherapy on August 26. He also received Neupogen injection on August 18. He came into the hospital with generalized weakness and failure to thrive. He was also complaining of penile infection and soreness. He also had mouth sores. Labs showed WBC count of 0.8 with ANC of 400. Hemoglobin was 8.0. He has been eating poorly. He has lost some weight as well. Denies any other new complaints. Review of Systems Review of Systems: Twelve point review of system was reviewed [facility] Past Medical History Medical History Aneurysm of popliteal artery Allergic rhinitis Deviated nasal septum Anterior epistaxis Squamous cell carcinoma lung Anxiety Fistula Bundle branch block, right COPD (chronic obstructive pulmonary disease) Coronary artery disease Proctitis Ulcerative colitis Surgical History Surgical History Port-A-Cath in place 01/14/25 Placement right internal jugular vein Port-A-Cath using ultrasound and under fluoroscopy per Dr. Arenas History of lobectomy of lung S/P pneumonectomy H/O heart bypass surgery History of colon surgery Family History Family History Father Asthma Mother Acute myocardial infarction Son Carcinoma of colon Other Family history of cardiovascular disease Social History Social History Social History: Caffeine-tea Smoking packs per day: 2 Smoking cigarettes per day: 40.0 Years smoked: 35 Smoking pack-years: 70.00 Smoking status: Former smoker Second hand tobacco smoke exposure: No Smoking end date: 08/30/05 Alcohol intake: never Substance use: never Substance use type: does not use Do You Feel Safe in your Home?: Yes Lack of Transportation: No Lack of Food: Never True Current Housing: I Have Housing Concerned About Future Housing: No Difficulty Paying Gas/Electric Bills: No Difficulty Paying for Meds: No Currently Unemployed: No Education: Bachelor's Degree Difficulty w/ Childcare or Family Care: No Living arrangements: with family Additional living arrangements comments: Spiritual care concerns: No Meds Home Medications and Allergies Home Medications ?Medication ?Instructions ?Recorded ?Confirmed ?Type cholecalciferol (vitamin D3) 125 5,000 unit PO DAILY 10/17/19 08/30/25 History mcg (5,000 unit) capsule mesalamine 1.2 gram tablet,delayed 2.4 gm PO DAILY 10/17/19 08/30/25 History release (Lialda) metoprolol succinate 25 mg 25 mg PO HS 10/17/19 08/30/25 History tablet,extended release 24 hr (Toprol XL) multivitamin 1 tablet PO DAILY 10/17/19 08/30/25 History fenofibrate 160 mg tablet See Rx Instructions .Route 12/01/24 08/30/25 Rx .COMPLEX #90 tabs alprazolam 0.25 mg tablet (Xanax) 0.25 mg PO QHS PRN anxiety 04/26/25 08/30/25 History triamcinolone acetonide 0.1 % 1 applic topical PRN 04/26/25 08/30/25 History topical cream abiraterone 250 mg tablet 1,000 mg PO DAILY 06/22/25 08/30/25 History lidocaine-prilocaine 2.5 %-2.5 % 1 applic topical DAILY PRN pain 06/22/25 08/30/25 History topical cream ondansetron 8 mg disintegrating 8 mg PO Q8-12H PRN nausea and 06/22/25 08/30/25 History tablet vomiting prednisone 5 mg tablet 5 mg PO Q12H 06/22/25 08/30/25 History mupirocin 2 % topical ointment 1 applic topical BID 07/22/25 08/30/25 History ferrous sulfate 325 mg (65 mg 325 mg PO DAILY 08/10/25 08/30/25 History iron) tablet (Feosol) vitamin B12 500 mcg-folic acid 400 1 tablet PO DAILY 08/10/25 08/30/25 History mcg tablet simvastatin 20 mg tablet (Zocor) 20 mg PO HS #90 tabs 08/19/25 08/30/25 Rx terbinafine HCl 1 % topical cream 1 applic topical BID #30 grams 08/27/25 08/30/25 Rx (Lamisil AT) pregabalin 100 mg capsule (Lyrica) 100 mg PO Q8H 90 days #270 caps 08/28/25 08/30/25 Rx terbinafine HCl 250 mg tablet 250 mg PO DAILY #30 tabs 08/28/25 08/30/25 Rx tamsulosin 0.4 mg capsule 0.4 mg PO DAILY 08/30/25 08/31/25 History Allergies Allergy/AdvReac Type Severity Reaction Status Date / Time escitalopram Allergy Unknown Asthma Verified 08/30/25 09:31 sildenafil Allergy Unknown Hypotension Verified 08/30/25 09:31 Penicillins AdvReac Mild Diarrhea Verified 08/30/25 09:31 amoxicillin AdvReac Unknown Diarrhea Verified 08/30/25 09:31 ciprofloxacin AdvReac Unknown Diarrhea Verified 08/30/25 09:31 gemfibrozil AdvReac Unknown myalgias Verified 08/30/25 09:31 lactase AdvReac Unknown Nausea Verified 08/30/25 09:31 Vital Signs Vital Signs - 24 hr 08/30/25 20:00 08/30/25 20:00 08/30/25 20:26 Temperature 36.9 C Pulse Rate 114 H 116 H Respiratory Rate 18 Blood Pressure 125/55 L Pulse Oximetry 93 Oxygen Delivery Room Air Oxygen Flow Rate Fraction of Inspired Oxygen 08/30/25 22:00 08/31/25 00:00 08/31/25 00:00 Temperature Pulse Rate 119 H 118 H Respiratory Rate Blood Pressure Pulse Oximetry Oxygen Delivery Room Air Oxygen Flow Rate Fraction of Inspired Oxygen 08/31/25 00:41 08/31/25 02:00 08/31/25 04:00 Temperature 36.9 C Pulse Rate 118 H 117 H Respiratory Rate 20 Blood Pressure 120/47 L Pulse Oximetry 96 96 Oxygen Delivery Nasal Cannula Oxygen Flow Rate 2 Fraction of Inspired Oxygen 08/31/25 04:00 08/31/25 04:59 08/31/25 06:00 Temperature 36.8 C Pulse Rate 115 H 121 H 112 H Respiratory Rate 22 H Blood Pressure 119/48 L Pulse Oximetry 96 Oxygen Delivery Oxygen Flow Rate Fraction of Inspired Oxygen 08/31/25 08:00 08/31/25 08:00 08/31/25 08:00 Temperature 37.0 C Pulse Rate 109 H 114 H Respiratory Rate 18 Blood Pressure 116/54 L Pulse Oximetry 99 Oxygen Delivery Room Air Oxygen Flow Rate Fraction of Inspired Oxygen 08/31/25 09:40 08/31/25 10:00 08/31/25 11:52 Temperature 36.6 C Pulse Rate 110 H 115 H Respiratory Rate 16 Blood Pressure 114/49 L Pulse Oximetry 99 94 Oxygen Delivery Room Air Oxygen Flow Rate Fraction of Inspired Oxygen 21 08/31/25 12:00 08/31/25 12:00 08/31/25 14:00 Temperature Pulse Rate 106 H 117 H Respiratory Rate Blood Pressure Pulse Oximetry Oxygen Delivery Room Air Oxygen Flow Rate Fraction of Inspired Oxygen 08/31/25 14:12 08/31/25 16:00 08/31/25 16:00 Temperature 37.1 C Pulse Rate 113 H 105 H Respiratory Rate 22 H Blood Pressure 116/63 Pulse Oximetry 92 Oxygen Delivery Room Air Oxygen Flow Rate Fraction of Inspired Oxygen 08/31/25 16:17 08/31/25 18:00 Temperature Pulse Rate 100 118 H Respiratory Rate Blood Pressure Pulse Oximetry Oxygen Delivery Oxygen Flow Rate Fraction of Inspired Oxygen Exam Narrative: Lungs are clear to auscultation bilaterally Cardiovascular regular rate rhythm no murmurs Abdomen soft nontender nondistended Extremities no edema Results Labs 08/31/25 04:09 08/31/25 04:09 Labs: Short CBC 08/31/25 Range/Units 04:09 WBC 0.8 L* (4.5-10.0) K/mm3 Hgb 8.0 L (14.0-18.0) g/dL Hct 23.8 L (42.0-52.0) % Plt Count 120 L (150-375) k/mm3 BMP 08/31/25 04:09 Sodium 130 L Potassium 3.6 Chloride 104 Carbon Dioxide 22 BUN 22 H Creatinine 0.51 L Glucose 99 Calcium 7.4 L Liver Function 08/31/25 Range/Units 04:09 Total Bilirubin 1.3 (0.2-1.3) mg/dL AST 40 (17-59) U/L ALT 12 (6-50) U/L Alkaline Phosphatase 65 (38-126) U/L Albumin 2.3 L (3.5-5.1) g/dL Urine 08/30/25 Range/Units 21:54 Urine Color Dark yellow (Yellow) Urine Appearance Clear (Clear) Urine pH 5.5 (5.0-9.0) Ur Specific [place] 1.027 (1.001-1.035) Urine Protein 1+ H (Negative) mg/dL Urine Glucose (UA) Negative (Negative) mg/dL
[2025-08-31 20:00] LABS: Iron 43 ug/dL (49-181)
[2025-08-31 20:09] LABS: Percent Iron Saturation 22 % (20-50)
[2025-08-31 20:31] LABS: Prostate Specific Antigen 0.3 ng/mL (< OR = 4.0)
[2025-08-31] MEDS: LORATADINE 10 MG TABLET PO (20:53)
[2025-08-31 21:06] LABS: Vitamin B12 994.0 pg/mL (239-931)
[2025-08-31 21:31] LABS: Ferritin > 2000.00 ng/mL (11.1-264)
[2025-09-01] VITALS (18 sets, daily range): BP systolic 90–141; BP diastolic 40–61; PULSE 95–116; RESP 16–24; TEMP 36.6–37.1; O2SAT 88–100
[2025-09-01] MEDS: SODIUM CHLORIDE 0.9% IV 1,000 ML 75 ML IV CONT ×2 (00:05→17:58)
[2025-09-01] MEDS: fentaNYL CITRATE INJ (*CRX) 100 MCG/2 ML VIAL 50 MCG IV PUSH (02:35)
[2025-09-01 04:45] LABS: Hematocrit 21.8 % (42.0-52.0); Hemoglobin 7.1 g/dL (14.0-18.0); Immature Granulocyte Percent A 5.4 % (0-0.5); Immature Platelet Fraction Pct 3.6 % (0.9-11.2); Lymphocytes Absolute Auto 0.33 K/mm3 (0.9-3.2); Mean Corpuscular HGB Conc 32.6 g/dl (32-36); Mean Corpuscular Hemoglobin 31.3 pg (26-34); Mean Corpuscular Volume 96.0 fl (80-100); Nucleated Red Blood Cells Absolute Auto 0.000 K/mm3 (0.0-0.012); Nucleated Red Blood Cells Perc 0.0 % (0.0-0.2); Platelet Count Result 135 k/mm3 (150-375); Red Blood Count 2.27 M/mm3 (4.6-6.20)
[2025-09-01 05:03] LABS: Alanine Aminotransferase 13 U/L (6-50); Albumin Level 2.5 g/dL (3.5-5.1); Alkaline Phosphatase 68 U/L (38-126); Anion Gap 2 mmol/L (4-12); Aspartate Amino Transferase 43 U/L (17-59); Bilirubin,Total 0.9 mg/dL (0.2-1.3); Blood Urea Nitrogen 20 mg/dL (9-20); Calcium 7.3 mg/dL (8.4-10.2); Carbon Dioxide 26 mmol/L (22-30); Chloride 104 mmol/L (98-107); Estimated CRCL calculation 91 ml/min; Estimated Glomerular Filt Rate > 60; Glucose 96 mg/dL (65-110); Magnesium 1.9 mg/dL (1.6-2.3); Potassium 3.6 mmol/L (3.4-5.0); Sodium 132 mmol/L (137-145); Total Protein 4.7 g/dL (6.3-8.2)
[2025-09-01 05:22] LABS: White Blood Count 1.5 K/mm3 (4.5-10.0)
[2025-09-01] MEDS: PREGABALIN (*CRX) 50 MG CAPSULE 100 MG PO ×3 (05:48→20:27)
[2025-09-01] MEDS: VANCOMYCIN 1,250 MG/NS 250 ML 1,250 MG/250 ML BAG 166.67 MG IVPB (05:48)
[2025-09-01] MEDS: LIDOCAINE 2% VISC SOLN 30 ML, ALUMINUM/MAGNESIUM/SIMETH SUSP 30 ML, diphenhydrAMINE HCl... PO ×4 (05:48→20:58)
--- NOTE | 2025-09-01 06:43 | P.CDI_ITS ---
CDI Query Clarification Request BMI: 21.8 Nutritional Diagnostic Statement: Please refer to the comprehensive nutrition assessment for further information. If you agree with diagnosis of Moderate protein calorie malnutrition related to inadequate energy intake as evidenced by reduced appetite and intake for greater than 1 month, a significant weight loss of -16% x 6 months, and clinical findings for moderate subcutaneous fat loss (cheeks) and moderate muscle wasting (yazidism, clavicle). Please specify severity if known: * Mild * Moderate * Severe * Other/Unknown <Dipti Marley RN - Last Filed: 09/01/25 06:44> Clarified Diagnosis Clarified Diagnosis: Moderate <Jacob Young MD - Last Filed: 09/01/25 16:57>
--- NOTE | 2025-09-01 07:50 | P.PNIM_ITS ---
Progress Note: A&P Assessment and Plan (1) Failure to thrive: Qualifiers: Failure to thrive age range: in adult Qualified Code(s): R62.7 - Adult failure to thrive Status: Acute Plan Neutropenic fever Patient recently had chemotherapy, follow up with Dr Walsh Patient has bifrontal cellulitis, thus will continue Vancomycin and cefepime WBC 0.7 -->0.8 noted fever at home Blood culture pending CXR showed pneumonitis Continue Cefepime and Vanc Dr Walsh consulted monitor Yeast Balanitis on fluconazole Cellulitis bifrontal Continue Vanc and Cefepime and monitor Possible pneumonia CXR reviewed continue Cefepime, Azithromycin and Vanc monitor Neutropenic mucositis ulcers noted on buccal exam Continue Magic mouthwash FTT/Protein energy malnutrition Patient noted poor oral intake the past week Protein supplements, IVF Dietitian consulted Pancytopenia Chemo-related Started on filgrastim Continue above care Monitor Lung and Prostate ca Continue follow up with Oncology on discharge COPD not in exacerbation continue PRN Duonebs CAD s/p CABG continue home meds DVT prophylaxis on Sq Lovenox Full code SDM: Anabell Roberson Subjective Date/time seen: 09/01/25 07:50 Interval history: Had a long discussion with his son about goals of care. Consulted ID for neutropenic fever. Oncologist discussed with the family yesterday and stop chemotherapy. Patient has a history of a prostate cancer and Currently patient is on remission. Monitor PSA level as per oncologist. Review of Systems Review of Systems: Other systems are reviewed and negative except as noted in history above. Exam Narrative: General: alert and comfortable Eyes: EOMI, PERRLA ENNT External ears normal, Neck is supple, no masses, Respiratory systems: Clear to auscultation Cardiovascular S1, S2, normal rhythm, no murmur, rub, or gallop; no thrill or palpable murmurs on palpation. Gastrointestinal: soft, non-tender, and non-distended abdomen with no masses; BS present Skin: no rash, lesions, ulcerations, subcutaneous nodules or induration Musculoskeletal: no abnormality and no tenderness, normal ROM Neurologic: Alert and oriented x3, non focal Mental Status Exam: normal affect : erythematous ulcer glans penis Objective Data Vital Signs Vital Signs: Vital Signs - 24 hr 08/31/25 08:00 08/31/25 08:00 08/31/25 08:00 Temperature 98.6 F Pulse Rate 109 H 114 H Respiratory Rate 18 Blood Pressure 116/54 L Pulse Oximetry 99 Oxygen Delivery Room Air Fraction of Inspired Oxygen 08/31/25 09:40 08/31/25 10:00 08/31/25 11:52 Temperature 97.9 F Pulse Rate 110 H 115 H Respiratory Rate 16 Blood Pressure 114/49 L Pulse Oximetry 99 94 Oxygen Delivery Room Air Fraction of Inspired Oxygen 21 08/31/25 12:00 08/31/25 12:00 08/31/25 14:00 Temperature Pulse Rate 106 H 117 H Respiratory Rate Blood Pressure Pulse Oximetry Oxygen Delivery Room Air Fraction of Inspired Oxygen 08/31/25 14:12 08/31/25 16:00 08/31/25 16:00 Temperature 98.7 F Pulse Rate 113 H 105 H Respiratory Rate 22 H Blood Pressure 116/63 Pulse Oximetry 92 Oxygen Delivery Room Air Fraction of Inspired Oxygen 08/31/25 16:17 08/31/25 18:00 08/31/25 20:00 Temperature Pulse Rate 100 118 H 109 H Respiratory Rate Blood Pressure Pulse Oximetry Oxygen Delivery Fraction of Inspired Oxygen 08/31/25 20:36 08/31/25 22:00 09/01/25 00:00 Temperature 98.8 F Pulse Rate 112 H 105 H 102 H Respiratory Rate 21 H Blood Pressure 140/40 L Pulse Oximetry 92 Oxygen Delivery Fraction of Inspired Oxygen 09/01/25 00:39 09/01/25 02:00 09/01/25 04:00 Temperature 97.9 F Pulse Rate 104 H 104 H 108 H Respiratory Rate 23 H Blood Pressure 141/61 H Pulse Oximetry 97 Oxygen Delivery Fraction of Inspired Oxygen 09/01/25 04:11 09/01/25 06:00 Temperature 98.8 F Pulse Rate 109 H 116 H Respiratory Rate 22 H Blood Pressure 100/58 L Pulse Oximetry 95 Oxygen Delivery Fraction of Inspired Oxygen Intake/Output Intake/Output: Intake & Output 08/29/25 08/30/25 08/31/25 09/01/25 23:59 23:59 23:59 23:59 Intake Total 3120 4090 222 Output Total 1050 250 Balance 3120 3040 -28 Meds/Results Medications: Active Medications Generic Name Dose Route Start Last Admin Trade Name Freq PRN Reason Stop Dose Admin Acetaminophen 650 mg 08/30/25 10:58 Acetaminophen 325 Mg Tablet PO Q4H PRN Mild Pain (1-3) or Fever Alprazolam 0.25 mg 08/31/25 09:41 08/31/25 20:53 Alprazolam (*Crx) 0.25 Mg Tablet PO 0.25 mg TID PRN Administration Anxiety Lidocaine HCl 30 ml/ Al Hydrox 0 ml 08/30/25 17:00 09/01/25 05:48 /Mg Hydrox/Simethicone 30 ml/ PO 5 ml Diphenhydramine HCl 75 mg Q4HWA DARIEN Administration Fenofibrate 145 mg 09/01/25 09:00 Fenofibrate 145 Mg Tablet PO QAM DARIEN Fentanyl Citrate 50 mcg 08/30/25 10:58 09/01/25 02:35 Fentanyl Citrate Inj (*Crx) 100 Mcg/2 Ml Vial IV PUSH 50 mcg Q2H PRN Administration Pain Rated 7-10 Filgrastim-Sndz 480 mcg 09/01/25 09:00 Filgrastim-Sndz 480 Mcg/0.8 Ml Syringe SUB-Q DAILY DARIEN Cefepime HCl 2 gm/ Sodium 50 mls @ 100 mls/hr 08/30/25 21:00 08/31/25 20:53 Chloride IVPB 100 mls/hr Q12HR DARIEN Administration Fluconazole 200 mg in 100 mls @ 100 mls/hr 08/30/25 14:10 08/31/25 14:26 Diflucan 200 Mg/Nacl 100 Ml IVPB Infused DAILY DARIEN Infusion Sodium Chloride 1,000 mls @ 75 mls/hr 08/30/25 14:30 09/01/25 00:05 Normal Saline Iv IV CONT 75 mls/hr .[id number] DARIEN Administration Azithromycin 500 mg/ Sodium 250 mls @ 250 mls/hr 08/31/25 10:30 08/31/25 14:26 Chloride IVPB 09/04/25 09:59 Infused DAILY DARIEN Infusion Vancomycin HCl 1,250 mg in 250 mls @ 166.667 mls/hr 08/31/25 18:00 09/01/25 05:48 Vancomycin 1,250 Mg/Ns 250 Ml IVPB 166.67 mls/hr Q12H DARIEN Administration Lidocaine HCl 1 applic 08/30/25 20:34 08/31/25 09:34 Lidocaine 4% Soln 50 Ml Btl TOPICAL 1 applic PRN PRN Administration Pain Loratadine 10 mg 08/31/25 21:00 08/31/25 20:53 Loratadine 10 Mg Tablet PO 10 mg QAM DARIEN Administration Metoprolol Succinate 25 mg 08/31/25 13:45 08/31/25 14:12 Metoprolol Succinate Ext Rel 25 Mg Tabcr PO 25 mg QAM DARIEN Administration Pregabalin 100 mg 08/31/25 14:00 09/01/25 05:48 Pregabalin (*Crx) 50 Mg Capsule PO 100 mg Q8HR DARIEN Administration Tamsulosin HCl 0.4 mg 09/01/25 09:00 Tamsulosin Hcl 0.4 Mg Capsule PO DAILY [facility] Vitamin D 125 mcg 09/01/25 09:00 Cholecalciferol (Vitamin D3) 125 Mcg (5,000 Units) Tablet PO DAILY [facility] Radiology Results: ITS Impressions Chest X-Ray 08/30/25 10:13 IMPRESSION: 1. Mild worsening interstitial changes left lung base. Pneumonitis or developing airspace disease not excluded. Labs Labs: Laboratory Results - last 24 hr 08/31/25 08/31/25 09/01/25 04:06 04:09 04:21 WBC 1.5 L* RBC 2.27 L Hgb 7.1 L Hct 21.8 L MCV 96.0 MCH 31.3 MCHC 32.6 RDW 17.5 H Plt Count 135 L MPV 10.8 H Immature Gran % (Auto) 5.4 H Neut % (Auto) 46.6 Lymph % (Auto) 22.3 [place] % (Auto) 21.6 H Eos % (Auto) 0.0 Baso % (Auto) 4.1 H Lymph # (Auto) 0.33 L [place] # (Auto) 0.3 Eos # (Auto) 0.0 Baso # (Auto) 0.1 Abs Immat Gran (auto) 0.08 H Absolute Neuts (auto) 0.7 L Absolute Nucleated RBC 0.000 Nucleated RBC % 0.0 % Immature Plt Fraction 3.6 Sodium 132 L Potassium 3.6 Chloride 104 Carbon Dioxide 26 Anion Gap 2 L BUN 20 Creatinine 0.54 L Estim Creat Clear Calc 91 Estimated GFR > 60 Glucose 96 Calcium 7.3 L Magnesium 1.9 Iron 43 L TIBC 199 L % Saturation 22 Ferritin > 2000.00 H Total Bilirubin 0.9 AST 43 ALT 13 Alkaline Phosphatase 68 Total Protein 4.7 L Albumin 2.5 L Prostate Specific Ag 0.3 Vitamin B12 994.0 H Folate 18.5 Hospitalist MIPS Advance Care Plan I have confirmed that the patient's Advanced Care Plan is present, code status is documented, or surrogate decision maker is listed in patient medical record.: Yes Medication Reconciliation I have utilized all available resources to obtain, update and review the patients current medications (includes all prescriptions, OTC, herbals, cannabis, and nutritional supplements).: Yes
[2025-09-01] MEDS: LORATADINE 10 MG TABLET PO (08:25)
[2025-09-01] MEDS: TAMSULOSIN HCL 0.4 MG CAPSULE PO (08:25)
[2025-09-01] MEDS: FENOFIBRATE 145 MG TABLET PO (08:25)
[2025-09-01] MEDS: CEFEPIME 2 GM in SODIUM CHLORIDE 0.9% IV 50 ML 100 ML IVPB ×2 (08:25→22:01)
[2025-09-01] MEDS: METOPROLOL SUCCINATE EXT REL 25 MG TABCR PO (08:25)
[2025-09-01] MEDS: CHOLECALCIFEROL (VITAMIN D3) 125 MCG (5,000 UNITS) TABLET PO (08:25)
[2025-09-01] MEDS: FILGRASTIM-SNDZ 480 MCG/0.8 ML SYRINGE SUB-Q (08:26)
[2025-09-01] MEDS: AZITHROMYCIN IV 500 MG in SODIUM CHLORIDE 0.9% IV 250 ML IVPB (08:26)
[2025-09-01] MEDS: FLUCONAZOLE 200 MG/NACL 100 ML 200 MG/100 ML BAG 100 MG IVPB (10:51)
--- NOTE | 2025-09-01 11:29 | WPDIDCN ---
Assessment and Plan Assessment and plan (1) Fever and neutropenia: Code(s): D70.9 - Neutropenia, unspecified; R50.81 - Fever presenting with conditions classified elsewhere Status: Acute (2) Pneumonia: Code(s): J18.9 - Pneumonia, unspecified organism Status: Acute (3) Stomatitis and mucositis: Code(s): K12.1 - Other forms of stomatitis; K12.30 - Oral mucositis (ulcerative), unspecified Status: Acute (4) Candidal balano-posthitis: Code(s): B37.49 - Other urogenital candidiasis Status: Acute Plan # Post chemotherapy neutropenia without fever. # Possible left lung base pneumonia. # Post chemotherapy mucositis. # Balanitis. # Metastatic prostate cancer. Plan: -- Continue cefepime and vancomycin directed toward neutropenia. Continue this same plus azithromycin directed toward possible pneumonia. Plan a 3 to five-day course of cefepime/ vancomycin and a 1500 mg course of azithromycin. -- given presence of Port-A-Cath continue to monitor blood cultures for potential bloodstream infection. -- continue fluconazole for balanitis. -- continue magic mouthwash for mucositis. -- continue to monitor white blood cell count. --further recommendations to follow. Thank you for the consult. Patient was seen via video telehealth consultation with the assistance of staff. Chart, data, and patient independently reviewed. Patient was located at [facility] while I was located in [facility] office. Received verbal consent from patient. HPI Data of Consult Date/Time: 09/01/25 11:29 Requesting Physician: Rufino Sloan MD Primary Care Provider: Maykel Gramajo MD Consult Narrative Narrative: Gume Roberson Jr. is a 75 year old male With past medical history significant for metastatic prostate carcinoma for which he has been undergoing chemotherapy, squamous cell carcinoma of the lung and status post pneumonectomy, coronary artery disease and status post CABG, bundle branch block on the right, COPD, aneurysm of popliteal artery, and history of colon surgery. Presented to the ED 08/30/2025 with generalized weakness, anorexia due to oral pain, and a recent diagnosis of yeast balanitis. Found to be absolutely neutropenic with a white count of 0.7. Chest x-ray with mild interstitial changes at the left lung base suggesting possible pneumonia. He has a Port-A-Cath. Blood cultures drawn 08/30 remain pending. Listed allergies include penicillin, amoxicillin, and ciprofloxacin although reaction reported as diarrhea for all. Patient confirms gastrointestinal intolerance to these agents rather than true allergy. He was empirically placed on cefepime, vancomycin, and azithromycin. He continues with treatment for balanitis with fluconazole. Since admission he remains afebrile. Total white blood cell count while receiving filgrastim increased to 1.5. Review of Systems Review of Systems: All systems reviewed & are unremarkable except as noted in HPI and below PMFSH Past Medical History Medical History Aneurysm of popliteal artery Allergic rhinitis Deviated nasal septum Anterior epistaxis Squamous cell carcinoma lung Anxiety Fistula Bundle branch block, right COPD (chronic obstructive pulmonary disease) Coronary artery disease Proctitis Ulcerative colitis Surgical History Surgical History Port-A-Cath in place 01/14/25 Placement right internal jugular vein Port-A-Cath using ultrasound and under fluoroscopy per Dr. Arenas History of lobectomy of lung S/P pneumonectomy H/O heart bypass surgery History of colon surgery Family History Family History Father Asthma Mother Acute myocardial infarction Son Carcinoma of colon Other Family history of cardiovascular disease Social History Social History Social History: Caffeine-tea Smoking packs per day: 2 Smoking cigarettes per day: 40.0 Years smoked: 35 Smoking pack-years: 70.00 Smoking status: Former smoker Second hand tobacco smoke exposure: No Smoking end date: 08/30/05 Alcohol intake: never Substance use: never Substance use type: does not use Do You Feel Safe in your Home?: Yes Lack of Transportation: No Lack of Food: Never True Current Housing: I Have Housing Concerned About Future Housing: No Difficulty Paying Gas/Electric Bills: No Difficulty Paying for Meds: No Currently Unemployed: No Education: Bachelor's Degree Difficulty w/ Childcare or Family Care: No Living arrangements: with family Additional living arrangements comments: Spiritual care concerns: No Meds Home Medications and Allergies Home Medications ?Medication ?Instructions ?Recorded ?Confirmed ?Type cholecalciferol (vitamin D3) 125 5,000 unit PO DAILY 10/17/19 08/30/25 History mcg (5,000 unit) capsule mesalamine 1.2 gram tablet,delayed 2.4 gm PO DAILY 10/17/19 08/30/25 History release (Lialda) metoprolol succinate 25 mg 25 mg PO HS 10/17/19 08/30/25 History tablet,extended release 24 hr (Toprol XL) multivitamin 1 tablet PO DAILY 10/17/19 08/30/25 History fenofibrate 160 mg tablet See Rx Instructions .Route 12/01/24 08/30/25 Rx .COMPLEX #90 tabs alprazolam 0.25 mg tablet (Xanax) 0.25 mg PO QHS PRN anxiety 04/26/25 08/30/25 History triamcinolone acetonide 0.1 % 1 applic topical PRN 04/26/25 08/30/25 History topical cream abiraterone 250 mg tablet 1,000 mg PO DAILY 06/22/25 08/30/25 History lidocaine-prilocaine 2.5 %-2.5 % 1 applic topical DAILY PRN pain 06/22/25 08/30/25 History topical cream ondansetron 8 mg disintegrating 8 mg PO Q8-12H PRN nausea and 06/22/25 08/30/25 History tablet vomiting prednisone 5 mg tablet 5 mg PO Q12H 06/22/25 08/30/25 History mupirocin 2 % topical ointment 1 applic topical BID 07/22/25 08/30/25 History ferrous sulfate 325 mg (65 mg 325 mg PO DAILY 08/10/25 08/30/25 History iron) tablet (Feosol) vitamin B12 500 mcg-folic acid 400 1 tablet PO DAILY 08/10/25 08/30/25 History mcg tablet simvastatin 20 mg tablet (Zocor) 20 mg PO HS #90 tabs 08/19/25 08/30/25 Rx terbinafine HCl 1 % topical cream 1 applic topical BID #30 grams 08/27/25 08/30/25 Rx (Lamisil AT) pregabalin 100 mg capsule (Lyrica) 100 mg PO Q8H 90 days #270 caps 08/28/25 08/30/25 Rx terbinafine HCl 250 mg tablet 250 mg PO DAILY #30 tabs 08/28/25 08/30/25 Rx tamsulosin 0.4 mg capsule 0.4 mg PO DAILY 08/30/25 08/31/25 History Allergies Allergy/AdvReac Type Severity Reaction Status Date / Time escitalopram Allergy Unknown Asthma Verified 08/30/25 09:31 sildenafil Allergy Unknown Hypotension Verified 08/30/25 09:31 Penicillins AdvReac Mild Diarrhea Verified 08/30/25 09:31 amoxicillin AdvReac Unknown Diarrhea Verified 08/30/25 09:31 ciprofloxacin AdvReac Unknown Diarrhea Verified 08/30/25 09:31 gemfibrozil AdvReac Unknown myalgias Verified 08/30/25 09:31 lactase AdvReac Unknown Nausea Verified 08/30/25 09:31 Vital Signs Vital Signs - 24 hr 08/31/25 11:52 08/31/25 12:00 08/31/25 12:00 Temperature 97.9 F Pulse Rate 115 H 106 H Respiratory Rate 16 Blood Pressure 114/49 L Pulse Oximetry 94 Oxygen Delivery Room Air 08/31/25 14:00 08/31/25 14:12 08/31/25 16:00 Temperature Pulse Rate 117 H 113 H Respiratory Rate Blood Pressure Pulse Oximetry Oxygen Delivery Room Air 08/31/25 16:00 08/31/25 16:17 08/31/25 18:00 Temperature 98.7 F Pulse Rate 105 H 100 118 H Respiratory Rate 22 H Blood Pressure 116/63 Pulse Oximetry 92 Oxygen Delivery 08/31/25 20:00 08/31/25 20:36 08/31/25 22:00 Temperature 98.8 F Pulse Rate 109 H 112 H 105 H Respiratory Rate 21 H Blood Pressure 140/40 L Pulse Oximetry 92 Oxygen Delivery 09/01/25 00:00 09/01/25 00:39 09/01/25 02:00 Temperature 97.9 F Pulse Rate 102 H 104 H 104 H Respiratory Rate 23 H Blood Pressure 141/61 H Pulse Oximetry 97 Oxygen Delivery 09/01/25 04:00 09/01/25 04:11 09/01/25 06:00 Temperature 98.8 F Pulse Rate 108 H 109 H 116 H Respiratory Rate 22 H Blood Pressure 100/58 L Pulse Oximetry 95 Oxygen Delivery 09/01/25 07:55 09/01/25 08:00 09/01/25 08:00 Temperature 98 F Pulse Rate 108 H 112 H Respiratory Rate 22 H Blood Pressure 119/48 L Pulse Oximetry 91 Oxygen Delivery Room Air 09/01/25 10:00 Temperature Pulse Rate 99 Respiratory Rate Blood Pressure Pulse Oximetry Oxygen Delivery Exam Narrative: Awake and alert and interactive. Frail but nontoxic. No respiratory distress. No significant abdominal distension. No diarrhea. Maintains a Frost catheter. Uncircumcised. Foreskin retracted. Glans penis with erythema and tenderness. Left foot with 1st toe mild erythema and some tenderness. Left 4th and 5th toes with minimal inflammation. Right foot with partially removed 1st toe nail and presence of small dry ulcer. No rash. Right chest Port-A-Cath site without edema or erythema. No tenderness. Not cannulated. Results Labs 09/01/25 04:21 09/01/25 04:21 Labs: Short CBC 09/01/25 Range/Units 04:21 WBC 1.5 L* (4.5-10.0) K/mm3 Hgb 7.1 L (14.0-18.0) g/dL Hct 21.8 L (42.0-52.0) % Plt Count 135 L (150-375) k/mm3 BMP 09/01/25 04:21 Sodium 132 L Potassium 3.6 Chloride 104 Carbon Dioxide 26 BUN 20 Creatinine 0.54 L Glucose 96 Calcium 7.3 L Liver Function 09/01/25 Range/Units 04:21 Total Bilirubin 0.9 (0.2-1.3) mg/dL AST 43 (17-59) U/L ALT 13 (6-50) U/L Alkaline Phosphatase 68 (38-126) U/L Albumin 2.5 L (3.5-5.1) g/dL
[2025-09-01] MEDS: IPRATROPIUM 0.5 MG/ALBUTEROL SULFATE 2.5 MG (BASE) AMPUL.NEB 3 ML INHALATION ×2 (13:55→20:27)
[2025-09-01] MEDS: ALPRAZolam (*CRX) 0.25 MG TABLET PO ×2 (14:36→20:59)
--- NOTE | 2025-09-01 17:56 | PC.NURSE ---
This patient, Gume Roberson , was received from IMU on 09/01/25 at 1756. Patient/family oriented to unit policies and routines
[2025-09-01] MEDS: VANCOMYCIN 1,500 MG/NS 500 ML 1,500 MG/500 ML BAG 250 MG IVPB (18:25)
[2025-09-02] VITALS (14 sets, daily range): BP systolic 95–110; BP diastolic 43–60; PULSE 96–118; RESP 16–24; TEMP 35.9–36.4; O2SAT 91–100
--- NOTE | 2025-09-02 | ECHO_ITS ---
Patient Info Name: Gume Roberson Age: 75 years : 1950 Gender: Male Ht: 68 in Wt: 156 lbs BSA: 1.85 m2 HR: 105 bpm BP: 95 / 56 mmHg Technical Quality: Good Exam Date: 09/02/2025 2:37 PM Patient Status: I Admit Date: 08/30/2025 Exam Type: CA echo doppler color flow Complete two-dimensional, color flow and Doppler transthoracic echocardiogram is performed. Staff Referring Physician: Jacob Young Hand Brim Ironer: Tara Benton Attending Provider: Rufino Sloan Summary 1. Complete two-dimensional, color flow and Doppler transthoracic echocardiogram is performed. 2. Left ventricular chamber dimension is normal. 3. Left ventricular systolic function is normal, estimated at 55-60. 4. The left ventricular diastolic function is abnormal. 5. E/e' 12 is mildly elevated. 6. Left atrial chamber dimension is mildly enlarged. 7. Right atrial chamber dimension is mildly enlarged. 8. There is severe aortic valve sclerosis. 9. There is moderate aortic valve stenosis with a peak velocity of 323 cm/s, mean gradient of 27 mmHg, and aortic valve area of 1.1 cm2. 10. The mitral valve has a moderately calcified annulus. 11. There is moderate tricuspid valve regurgitation. 12. Mild pulmonary hypertension, estimated pulmonary arterial systolic pressure is 45 mmHg. 13. There is trivial pericardial effusion. Left Ventricle E/e' 12 is mildly elevated. Left ventricular chamber dimension is normal. Left ventricular systolic function is normal, estimated at 55-60. The left ventricular diastolic function is abnormal. Right Ventricle Right ventricular chamber dimension is normal. Right ventricular systolic function is normal. Left Atria Left atrial chamber dimension is mildly enlarged. Right Atria Right atrial chamber dimension is mildly enlarged. Aortic Valve The aortic valve is trileaflet. There is severe aortic valve sclerosis. There is moderate aortic valve stenosis with a peak velocity of 323 cm/s, mean gradient of 27 mmHg, and aortic valve area of 1.1 cm2. There is no aortic valve regurgitation. No aortic valve vegetation visualized. Pulmonic Valve There is no pulmonic regurgitation. No pulmonic valve vegetation visualized. Mitral Valve The mitral valve has a moderately calcified annulus. There is no mitral valve stenosis. There is no mitral valve regurgitation. No mitral valve vegetation visualized. Tricuspid Valve There is moderate tricuspid valve regurgitation. Mild pulmonary hypertension, estimated pulmonary arterial systolic pressure is 45 mmHg. No tricuspid valve vegetation visualized. Pericardium/Pleural There is trivial pericardial effusion. Inferior Vena Cava Normal inferior vena cava with >50% collapse upon inspiration consistent with normal right atrial pressure, 5 mmHg. Aorta The aortic root size at the sinus of Valsalva is normal. Left Ventricular Outflow Tract Name Value Normal LVOT 2D LVOT Diameter 2.0 cm LVOT Doppler LVOT Peak Velocity 119 cm/s LVOT Peak Gradient 5 mmHg LVOT Mean Gradient 3 mmHg LVOT VTI 24 cm LVOT VTI/AV VTI Ratio 0.4 LVOT Stroke Volume 72 ml LVOT CO 6.5 l/min LVOT CI 3.5 l/min/m2 Pulmonic Valve Name Value Normal RVOT Doppler RVOT Peak Velocity 99 cm/s RVOT Peak Gradient 4 mmHg PV Doppler PV Peak Velocity 140 cm/s PV Peak Gradient 8 mmHg Mitral Valve Name Value Normal MV Diastolic Function MV E Peak Velocity 125 cm/s MV A Peak Velocity 46 cm/s MV E/A 2.7 MV Decel Time (PW) 96 ms MV Annular TDI MV E/e' (Septal) 9.1 MV E/e' (Lateral) 20.6 MV E/e' (Average) 14.8 Tricuspid Valve Name Value Normal TV Regurgitation Doppler TR Peak Velocity 314 cm/s TR Peak Gradient 38 mmHg Estimated PAP/RSVP RA Pressure 5 mmHg <=5 PA Systolic Pressure 45 mmHg <36 RV Systolic Pressure 45 mmHg <36 Aortic Valve Name Value Normal AV Doppler AV Peak Velocity 323 cm/s AV Peak Gradient 42 mmHg AV Mean Gradient 27 mmHg AV VTI 65 cm AV Area (Cont Eq VTI) 1.1 cm2 >=3.0 AV Area (Cont Eq Irvin) 1.1 cm2 AV DI (Irvin) 0.37 AV Regurgitation 2D LVOT Area 3.0 cm2 Ventricles Name Value Normal LV Dimensions 2D/MM IVS Diastolic Thickness (2D) 0.8 cm 0.6-1.0 LVID Diastole (2D) 4.1 cm 4.2-5.8 LVIW Diastolic Thickness (2D) 0.9 cm 0.6-1.0 LVID Systole (2D) 3.0 cm 2.5-4.0 LVOT Diameter 2.0 cm LV Mass (2D Cubed) 104.98 g 88.00-224.00 LV Mass Index (2D Cubed) 57 g/m2 49-115 Relative Wall Thickness (2D) 0.43 <=0.42 LV Fractional Shortening/Ejection Fraction 2D/MM LV Fractional Shortening (2D) 28 % 25-43 LV EF (2D Teichholz) 54 % LV Diastolic Volume (4C MOD) 97 ml LV EF (4C MOD) 55 % LV Diastolic Volume (2C MOD) 106 ml LV EF (2C MOD) 61 % LV Diastolic Volume (BP MOD) 104 ml 62-150 LV Diastolic Volume Index (BP MOD) 56 ml/m2 34-74 LV Systolic Volume (BP MOD) 43 ml 21-61 LV Systolic Volume Index (BP MOD) 23 ml/m2 11-31 LV EF (BP MOD) 59 % 52-72 LV Diastolic Length (4C) 8.1 cm LV Systolic Length (4C) 7.0 cm LV Stroke Volume (4C MOD) 53 ml Atria Name Value Normal LA Dimensions LA Volume (4C A-L) 32 ml LA Volume (BP A-L) 52 ml RA Dimensions RA Systolic Major Peebles Length (4C) 5.8 cm 2.1-2.7 RA Area (4C) 17.7 cm2 <=18.0 Report Signatures
[2025-09-02] MEDS: IPRATROPIUM 0.5 MG/ALBUTEROL SULFATE 2.5 MG (BASE) AMPUL.NEB 3 ML INHALATION ×4 (01:24→19:59)
[2025-09-02] MEDS: VANCOMYCIN 1,500 MG/NS 500 ML 1,500 MG/500 ML BAG 250 MG IVPB (05:06)
[2025-09-02] MEDS: PREGABALIN (*CRX) 50 MG CAPSULE 100 MG PO ×3 (05:07→21:54)
[2025-09-02] MEDS: guaiFENesin 12 HR 600 MG TABCR PO (05:07)
[2025-09-02] MEDS: LIDOCAINE 2% VISC SOLN 30 ML, ALUMINUM/MAGNESIUM/SIMETH SUSP 30 ML, diphenhydrAMINE HCl... PO ×4 (05:07→21:55)
[2025-09-02 06:57] LABS: Hematocrit 22.0 % (42.0-52.0); Hemoglobin 7.1 g/dL (14.0-18.0); Mean Corpuscular HGB Conc 32.3 g/dl (32-36); Mean Corpuscular Hemoglobin 31.0 pg (26-34); Mean Corpuscular Volume 96.1 fl (80-100); Platelet Count Result 140 k/mm3 (150-375); Red Blood Count 2.29 M/mm3 (4.6-6.20); White Blood Count 5.0 K/mm3 (4.5-10.0)
[2025-09-02 07:28] LABS: Alanine Aminotransferase 13 U/L (6-50); Albumin Level 2.3 g/dL (3.5-5.1); Alkaline Phosphatase 76 U/L (38-126); Anion Gap 3 mmol/L (4-12); Aspartate Amino Transferase 44 U/L (17-59); Bilirubin,Total 0.8 mg/dL (0.2-1.3); Blood Urea Nitrogen 18 mg/dL (9-20); Calcium 7.4 mg/dL (8.4-10.2); Carbon Dioxide 25 mmol/L (22-30); Chloride 107 mmol/L (98-107); Estimated CRCL calculation 95 ml/min; Estimated Glomerular Filt Rate > 60; Glucose 87 mg/dL (65-110); Potassium 3.6 mmol/L (3.4-5.0); Sodium 135 mmol/L (137-145); Total Protein 4.5 g/dL (6.3-8.2)
[2025-09-02] MEDS: LORATADINE 10 MG TABLET PO (08:19)
[2025-09-02] MEDS: CHOLECALCIFEROL (VITAMIN D3) 125 MCG (5,000 UNITS) TABLET PO (08:19)
[2025-09-02] MEDS: TAMSULOSIN HCL 0.4 MG CAPSULE PO (08:19)
[2025-09-02] MEDS: FENOFIBRATE 145 MG TABLET PO (08:19)
[2025-09-02] MEDS: CEFEPIME 2 GM in SODIUM CHLORIDE 0.9% IV 50 ML 100 ML IVPB ×2 (08:27→21:54)
[2025-09-02 08:45] LABS: Immature Granulocyte Percent A 3.8 % (0-0.5); Lymphocytes Absolute Auto 0.36 K/mm3 (0.9-3.2); Nucleated Red Blood Cells Absolute Auto 0.030 K/mm3 (0.0-0.012); Nucleated Red Blood Cells Perc 0.6 % (0.0-0.2)
[2025-09-02 08:54] LABS: Anisocytosis 2+
[2025-09-02 08:55] LABS: Burr Cells Occasional; Hypochromasia 1+; Schistocytes None Seen
[2025-09-02] MEDS: FLUCONAZOLE 200 MG/NACL 100 ML 200 MG/100 ML BAG 100 MG IVPB (09:02)
[2025-09-02] MEDS: AZITHROMYCIN IV 500 MG in SODIUM CHLORIDE 0.9% IV 250 ML IVPB (10:00)
[2025-09-02] MEDS: FILGRASTIM-SNDZ 480 MCG/0.8 ML SYRINGE SUB-Q (10:01)
--- NOTE | 2025-09-02 10:06 | P.PNINF_ITS ---
Progress Note: A&P Assessment and Plan (1) Fever and neutropenia: Code(s): D70.9 - Neutropenia, unspecified; R50.81 - Fever presenting with conditions classified elsewhere Status: Acute (2) Pneumonia: Code(s): J18.9 - Pneumonia, unspecified organism Status: Acute (3) Stomatitis and mucositis: Code(s): K12.1 - Other forms of stomatitis; K12.30 - Oral mucositis (ulcerative), unspecified Status: Acute (4) Candidal balano-posthitis: Code(s): B37.49 - Other urogenital candidiasis Status: Acute Plan # Post chemotherapy neutropenia without fever. -- neutropenia now resolved. # Possible left lung base pneumonia. -- remains on cefepime, azithromycin, and vancomycin. # Post chemotherapy mucositis. # Balanitis. -- receiving fluconazole and local care. # Metastatic prostate cancer. Plan: -- continue vancomycin pending blood cultures. If preliminarily reported as negative may discontinue. -- Continue cefepime plus azithromycin directed toward possible pneumonia. Continue cefepime at least through today (8 3 day course) and for up to a maximum of 5 days. Complete 1500 mg of azithromycin. -- given presence of Port-A-Cath continue to monitor blood cultures for potential bloodstream infection. still being reported as pending. -- continue fluconazole for balanitis. Anticipate a 14 day course. -- continue magic mouthwash for mucositis. -- discussed with patient's son. Patient was seen via video telehealth consultation with the assistance of staff. Chart, data, and patient independently reviewed. Patient was located at [facility] while I was located in my [place] office. Received verbal consent from patient. Subjective Date/time seen: 09/02/25 10:06 Interval history: 09/02/2025: Patient seen today with son at bedside. Discussed with son. Afebrile with stable vital signs. Remains on 2 L per nasal cannula. White blood cell count increased to 5.0 with absolute neutrophil count 3.7. Blood cultures remain reported as pending. Review of Systems Review of Systems: All systems reviewed & are unremarkable except as noted in HPI and below Exam Narrative: Patient is sleeping. No distress. Balanitis improving per patient's son. Objective Data Vital Signs Vital Signs: Vital Signs - 24 hr 09/01/25 11:23 09/01/25 11:30 09/01/25 13:29 Temperature 98.7 F Pulse Rate 101 H Respiratory Rate 22 H Blood Pressure 106/50 L Pulse Oximetry 92 Oxygen Delivery Room Air Room Air Oxygen Flow Rate Fraction of Inspired Oxygen 09/01/25 14:00 09/01/25 14:15 09/01/25 16:00 Temperature 98 F Pulse Rate 95 98 105 H Respiratory Rate 20 20 22 H Blood Pressure 96/40 L Pulse Oximetry 98 Oxygen Delivery Oxygen Flow Rate Fraction of Inspired Oxygen 09/01/25 20:00 09/01/25 20:27 09/01/25 20:27 Temperature Pulse Rate 101 H 101 H Respiratory Rate 24 H 20 Blood Pressure Pulse Oximetry 95 88 L Oxygen Delivery Nasal Cannula Room Air Oxygen Flow Rate 2 Fraction of Inspired Oxygen 21 09/01/25 20:45 09/01/25 20:54 09/01/25 23:48 Temperature 98.4 F 97.8 F Pulse Rate 98 107 H 100 Respiratory Rate 20 16 16 Blood Pressure 101/46 L 90/40 L Pulse Oximetry 89 L 100 Oxygen Delivery Oxygen Flow Rate Fraction of Inspired Oxygen 09/02/25 01:25 09/02/25 01:36 09/02/25 05:30 Temperature 97.2 F L Pulse Rate 96 110 H 103 H Respiratory Rate 20 20 16 Blood Pressure 110/51 L Pulse Oximetry 98 Oxygen Delivery Oxygen Flow Rate Fraction of Inspired Oxygen 09/02/25 07:29 09/02/25 07:52 09/02/25 07:58 Temperature 96.6 F L Pulse Rate 103 H 104 H 107 H Respiratory Rate 24 H 20 20 Blood Pressure 96/60 L Pulse Oximetry 100 Oxygen Delivery Oxygen Flow Rate Fraction of Inspired Oxygen 09/02/25 08:00 09/02/25 08:00 Temperature 96.6 F L Pulse Rate 104 H Respiratory Rate 22 H 17 Blood Pressure 105/50 L Pulse Oximetry 100 100 Oxygen Delivery Nasal Cannula Oxygen Flow Rate 2 Fraction of Inspired Oxygen Intake/Output Intake/Output: Intake & Output 08/30/25 08/31/25 09/01/25 09/02/25 23:59 23:59 23:59 23:59 Intake Total 3120 4140 2812 170 Output Total 1050 551 275 Balance 3120 3090 2261 -105 Meds/Results Medications: Active Medications Generic Name Dose Route Start Last Admin Trade Name Freq PRN Reason Stop Dose Admin Acetaminophen 650 mg 08/30/25 10:58 Acetaminophen 325 Mg Tablet PO Q4H PRN Mild Pain (1-3) or Fever Albuterol/Ipratropium 3 ml 09/01/25 08:55 09/02/25 07:51 Ipratropium 0.5 Mg/Albuterol Sulfate 2.5 Mg (Base) Ampul.Neb 3 Ml INHALATION 3 ml Q6HRT DARIEN Administration Alprazolam 0.25 mg 08/31/25 09:41 09/01/25 20:59 Alprazolam (*Crx) 0.25 Mg Tablet PO 0.25 mg TID PRN Administration Anxiety Lidocaine HCl 30 ml/ Al Hydrox 0 ml 08/30/25 17:00 09/02/25 08:22 /Mg Hydrox/Simethicone 30 ml/ PO 5 ml Diphenhydramine HCl 75 mg Q4HWA DARIEN Administration Fenofibrate 145 mg 09/01/25 09:00 09/02/25 08:19 Fenofibrate 145 Mg Tablet PO 145 mg QAM DARIEN Administration Fentanyl Citrate 50 mcg 08/30/25 10:58 09/01/25 02:35 Fentanyl Citrate Inj (*Crx) 100 Mcg/2 Ml Vial IV PUSH 50 mcg Q2H PRN Administration Pain Rated 7-10 Filgrastim-Sndz 480 mcg 09/01/25 09:00 09/02/25 10:01 Filgrastim-Sndz 480 Mcg/0.8 Ml Syringe SUB-Q 480 mcg DAILY DARIEN Administration Guaifenesin 600 mg 09/01/25 23:59 09/02/25 05:07 Guaifenesin 12 Hr 600 Mg Tabcr PO 600 mg Q12HR PRN Administration Congestion Cefepime HCl 2 gm/ Sodium 50 mls @ 100 mls/hr 08/30/25 21:00 09/02/25 08:27 Chloride IVPB 100 mls/hr Q12HR DARIEN Administration Fluconazole 200 mg in 100 mls @ 100 mls/hr 08/30/25 14:10 09/02/25 09:02 Diflucan 200 Mg/Nacl 100 Ml IVPB 100 mls/hr DAILY DARIEN Administration Sodium Chloride 1,000 mls @ 75 mls/hr 08/30/25 14:30 09/01/25 18:44 Normal Saline Iv IV CONT Not Given .[id number] DARIEN Vancomycin HCl 1,500 mg in 500 mls @ 250 mls/hr 09/01/25 18:00 09/02/25 05:06 Vancomycin 1,500 Mg/Ns 500 Ml IVPB 250 mls/hr Q12H DARIEN Administration Lidocaine HCl 1 applic 08/30/25 20:34 08/31/25 09:34 Lidocaine 4% Soln 50 Ml Btl TOPICAL 1 applic PRN PRN Administration Pain Loratadine 10 mg 08/31/25 21:00 09/02/25 08:19 Loratadine 10 Mg Tablet PO 10 mg QAM DARIEN Administration Metoprolol Succinate 25 mg 08/31/25 13:45 09/01/25 08:25 Metoprolol Succinate Ext Rel 25 Mg Tabcr PO 25 mg QAM DARIEN Administration Pregabalin 100 mg 08/31/25 14:00 09/02/25 05:07 Pregabalin (*Crx) 50 Mg Capsule PO 100 mg Q8HR DARIEN Administration Tamsulosin HCl 0.4 mg 09/01/25 09:00 09/02/25 08:19 Tamsulosin Hcl 0.4 Mg Capsule PO 0.4 mg DAILY DARIEN Administration Vitamin D 125 mcg 09/01/25 09:00 09/02/25 08:19 Cholecalciferol (Vitamin D3) 125 Mcg (5,000 Units) Tablet PO 125 mcg DAILY DARIEN Administration Radiology Results: ITS Impressions Chest X-Ray 08/30/25 10:13 IMPRESSION: 1. Mild worsening interstitial changes left lung base. Pneumonitis or developing airspace disease not excluded. Labs Labs: Laboratory Results - last 24 hr 09/01/25 09/02/25 09/02/25 17:09 06:36 06:39 WBC TNP 5.0 RBC TNP 2.29 L Hgb TNP 7.1 L Hct TNP 22.0 L MCV TNP 96.1 MCH TNP 31.0 MCHC TNP 32.3 RDW TNP 18.4 H Plt Count TNP 140 L MPV TNP 10.6 H Immature Gran % (Auto) 3.8 H Neut % (Auto) 73.0 Lymph % (Auto) 7.1 L [place]ison % (Auto) 13.9 H Eos % (Auto) 0.0 Baso % (Auto) 2.2 H Lymph # (Auto) 0.36 L [place] # (Auto) 0.7 H Eos # (Auto) 0.0 Baso # (Auto) 0.1 Abs Immat Gran (auto) 0.19 H Absolute Neuts (auto) 3.7 Absolute Nucleated RBC 0.030 H Band Neutrophils % Not Reportable Nucleated RBC % 0.6 H Platelet Estimate Adequate % Immature Plt Fraction TNP Hypochromasia 1+ Anisocytosis 2+ Buckhead Cells Occasional Schistocytes None seen Sodium 135 L Potassium 3.6 Chloride 107 Carbon Dioxide 25 Anion Gap 3 L BUN 18 Creatinine 0.55 L Estim Creat Clear Calc 95 Estimated GFR > 60 Glucose 87 Calcium 7.4 L Total Bilirubin 0.8 AST 44 ALT 13 Alkaline Phosphatase 76 Total Protein 4.5 L Albumin 2.3 L Vancomycin Trough 12.1
--- NOTE | 2025-09-02 11:31 | PC.NURSE ---
Dr Young notified of holding am metoprolol due to bp soft with SBP in 90's .
[2025-09-02] MEDS: ALPRAZolam (*CRX) 0.25 MG TABLET PO (12:59)
--- NOTE | 2025-09-02 14:33 | PCOTNOTE ---
Patient is unavailable due to getting ultra sound of heart.
[2025-09-02 14:45] LABS: NT Pro B Type Natriuretic Pept 1170 pg/mL (19.9-100)
--- NOTE | 2025-09-02 16:34 | P.PNIM_ITS ---
Progress Note: A&P Assessment and Plan (1) Failure to thrive: Qualifiers: Failure to thrive age range: in adult Qualified Code(s): R62.7 - Adult failure to thrive Status: Acute Plan Neutropenic fever Patient recently had chemotherapy, follow up with Dr Walsh Patient has bifrontal cellulitis Will discontinue vancomycin due to preliminary blood culture negative Ordered echocardiogram which show no signs of agitation. Echo shows diastolic dysfunction WBC 5 K, will discontinue filgrastim noted fever at home Preliminary blood culture negative CXR showed pneumonitis Continue Cefepime and azithromycin Dr Walsh consulted monitor Yeast Balanitis on fluconazole Cellulitis bifrontal Discontinue Vanc Continue Cefepime Possible pneumonia CXR reviewed continue Cefepime, Azithromycin Discontinue Vanc monitor Neutropenic mucositis ulcers noted on buccal exam Continue Magic mouthwash FTT/Protein energy malnutrition Patient noted poor oral intake the past week Protein supplements, IVF Dietitian consulted Pancytopenia Chemo-related Started on filgrastim Continue above care Monitor Lung and Prostate ca Continue follow up with Oncology on discharge COPD not in exacerbation continue PRN Duonebs CAD s/p CABG continue home meds DVT prophylaxis on Sq Lovenox Full code SDM: Anabell Roberson Subjective Date/time seen: 09/02/25 16:34 Interval history: Patient is tired during the evaluation. Discussed again with the son about goals of care. Patient is a full code and will continue aggressive measures. Ordered CT scan chest due to chest congestion Review of Systems Review of Systems: Other systems are reviewed and negative except as noted in history above. Exam Narrative: General: alert and comfortable Eyes: EOMI, PERRLA ENNT External ears normal, Neck is supple, no masses, Respiratory systems: Clear to auscultation Cardiovascular S1, S2, normal rhythm, no murmur, rub, or gallop; no thrill or palpable murmurs on palpation. Gastrointestinal: soft, non-tender, and non-distended abdomen with no masses; BS present Skin: no rash, lesions, ulcerations, subcutaneous nodules or induration Musculoskeletal: no abnormality and no tenderness, normal ROM Neurologic: Alert and oriented x3, non focal Mental Status Exam: normal affect : erythematous ulcer glans penis Objective Data Vital Signs Vital Signs: Vital Signs - 24 hr 09/01/25 20:00 09/01/25 20:27 09/01/25 20:27 Temperature Pulse Rate 101 H 101 H Respiratory Rate 24 H 20 Blood Pressure Pulse Oximetry 95 88 L Oxygen Delivery Nasal Cannula Room Air Oxygen Flow Rate 2 Fraction of Inspired Oxygen 21 09/01/25 20:45 09/01/25 20:54 09/01/25 23:48 Temperature 98.4 F 97.8 F Pulse Rate 98 107 H 100 Respiratory Rate 20 16 16 Blood Pressure 101/46 L 90/40 L Pulse Oximetry 89 L 100 Oxygen Delivery Oxygen Flow Rate Fraction of Inspired Oxygen 09/02/25 01:25 09/02/25 01:36 09/02/25 05:30 Temperature 97.2 F L Pulse Rate 96 110 H 103 H Respiratory Rate 20 20 16 Blood Pressure 110/51 L Pulse Oximetry 98 Oxygen Delivery Oxygen Flow Rate Fraction of Inspired Oxygen 09/02/25 07:29 09/02/25 07:52 09/02/25 07:58 Temperature 96.6 F L Pulse Rate 103 H 104 H 107 H Respiratory Rate 24 H 20 20 Blood Pressure 96/60 L Pulse Oximetry 100 Oxygen Delivery Oxygen Flow Rate Fraction of Inspired Oxygen 09/02/25 08:00 09/02/25 08:00 09/02/25 12:11 Temperature 96.6 F L 96.8 F L Pulse Rate 104 H 104 H Respiratory Rate 22 H 17 18 Blood Pressure 105/50 L 95/56 L Pulse Oximetry 100 100 100 Oxygen Delivery Nasal Cannula Oxygen Flow Rate 2 Fraction of Inspired Oxygen 09/02/25 13:53 09/02/25 13:59 09/02/25 16:00 Temperature 96.8 F L Pulse Rate 104 H 107 H 106 H Respiratory Rate 20 20 20 Blood Pressure 99/43 L Pulse Oximetry 100 Oxygen Delivery Oxygen Flow Rate Fraction of Inspired Oxygen Intake/Output Intake/Output: Intake & Output 08/30/25 08/31/25 09/01/25 09/02/25 23:59 23:59 23:59 23:59 Intake Total 3120 4140 2812 290 Output Total 1050 551 275 Balance 3120 3090 2261 15 Meds/Results Medications: Active Medications Generic Name Dose Route Start Last Admin Trade Name Freq PRN Reason Stop Dose Admin Acetaminophen 650 mg 08/30/25 10:58 Acetaminophen 325 Mg Tablet PO Q4H PRN Mild Pain (1-3) or Fever Albuterol/Ipratropium 3 ml 09/01/25 08:55 09/02/25 13:52 Ipratropium 0.5 Mg/Albuterol Sulfate 2.5 Mg (Base) Ampul.Neb 3 Ml INHALATION 3 ml Q6HRT DARIEN Administration Alprazolam 0.25 mg 08/31/25 09:41 09/02/25 12:59 Alprazolam (*Crx) 0.25 Mg Tablet PO 0.25 mg TID PRN Administration Anxiety Lidocaine HCl 30 ml/ Al Hydrox 0 ml 08/30/25 17:00 09/02/25 16:19 /Mg Hydrox/Simethicone 30 ml/ PO Not Given Diphenhydramine HCl 75 mg Q4HWA DARIEN Fenofibrate 145 mg 09/01/25 09:00 09/02/25 08:19 Fenofibrate 145 Mg Tablet PO 145 mg QAM DARIEN Administration Fentanyl Citrate 50 mcg 08/30/25 10:58 09/01/25 02:35 Fentanyl Citrate Inj (*Crx) 100 Mcg/2 Ml Vial IV PUSH 50 mcg Q2H PRN Administration Pain Rated 7-10 Guaifenesin 600 mg 09/01/25 23:59 09/02/25 05:07 Guaifenesin 12 Hr 600 Mg Tabcr PO 600 mg Q12HR PRN Administration Congestion Cefepime HCl 2 gm/ Sodium 50 mls @ 100 mls/hr 08/30/25 21:00 09/02/25 08:27 Chloride IVPB 100 mls/hr Q12HR DARIEN Administration Fluconazole 200 mg in 100 mls @ 100 mls/hr 08/30/25 14:10 09/02/25 09:02 Diflucan 200 Mg/Nacl 100 Ml IVPB 100 mls/hr DAILY DARIEN Administration Vancomycin HCl 1,500 mg in 500 mls @ 250 mls/hr 09/01/25 18:00 09/02/25 05:06 Vancomycin 1,500 Mg/Ns 500 Ml IVPB 250 mls/hr Q12H DARIEN Administration Lidocaine HCl 1 applic 08/30/25 20:34 08/31/25 09:34 Lidocaine 4% Soln 50 Ml Btl TOPICAL 1 applic PRN PRN Administration Pain Loratadine 10 mg 08/31/25 21:00 09/02/25 08:19 Loratadine 10 Mg Tablet PO 10 mg QAM DARIEN Administration Metoprolol Succinate 25 mg 08/31/25 13:45 09/02/25 11:31 Metoprolol Succinate Ext Rel 25 Mg Tabcr PO Not Given QAM DARIEN Perflutren Lipid Microsphere 0 ml 09/02/25 13:55 Perflutren Lipid Microspheres 1.5 Ml Vial Diluted To 10 Ml Total Volume IV PUSH 09/05/25 13:55 ONCE PRN adequate visualization Protocol Pregabalin 100 mg 08/31/25 14:00 09/02/25 12:59 Pregabalin (*Crx) 50 Mg Capsule PO 100 mg Q8HR DARIEN Administration Tamsulosin HCl 0.4 mg 09/01/25 09:00 09/02/25 08:19 Tamsulosin Hcl 0.4 Mg Capsule PO 0.4 mg DAILY DARIEN Administration Vitamin D 125 mcg 09/01/25 09:00 09/02/25 08:19 Cholecalciferol (Vitamin D3) 125 Mcg (5,000 Units) Tablet PO 125 mcg DAILY DARIEN Administration Radiology Results: ITS Impressions Chest X-Ray 08/30/25 10:13 IMPRESSION: 1. Mild worsening interstitial changes left lung base. Pneumonitis or developing airspace disease not excluded. Labs Labs: Laboratory Results - last 24 hr 09/01/25 09/02/25 09/02/25 17:09 06:36 06:39 WBC TNP 5.0 RBC TNP 2.29 L Hgb TNP 7.1 L Hct TNP 22.0 L MCV TNP 96.1 MCH TNP 31.0 MCHC TNP 32.3 RDW TNP 18.4 H Plt Count TNP 140 L MPV TNP 10.6 H Immature Gran % (Auto) 3.8 H Neut % (Auto) 73.0 Lymph % (Auto) 7.1 L [place]ett % (Auto) 13.9 H Eos % (Auto) 0.0 Baso % (Auto) 2.2 H Lymph # (Auto) 0.36 L [place]ett # (Auto) 0.7 H Eos # (Auto) 0.0 Baso # (Auto) 0.1 Abs Immat Gran (auto) 0.19 H Absolute Neuts (auto) 3.7 Absolute Nucleated RBC 0.030 H Band Neutrophils % Not Reportable Nucleated RBC % 0.6 H Platelet Estimate Adequate % Immature Plt Fraction TNP Hypochromasia 1+ Anisocytosis 2+ Emiliano Cells Occasional Schistocytes None seen Sodium 135 L Potassium 3.6 Chloride 107 Carbon Dioxide 25 Anion Gap 3 L BUN 18 Creatinine 0.55 L Estim Creat Clear Calc 95 Estimated GFR > 60 Glucose 87 Calcium 7.4 L Total Bilirubin 0.8 AST 44 ALT 13 Alkaline Phosphatase 76 NT-Pro-B Natriuret Pep 1170 H Total Protein 4.5 L Albumin 2.3 L Vancomycin Trough 12.1 Hospitalist MIPS Advance Care Plan I have confirmed that the patient's Advanced Care Plan is present, code status is documented, or surrogate decision maker is listed in patient medical record.: Yes Medication Reconciliation I have utilized all available resources to obtain, update and review the patients current medications (includes all prescriptions, OTC, herbals, cannabis, and nutritional supplements).: Yes
[2025-09-03] VITALS (127 sets, daily range): BP systolic 81–124; BP diastolic 40–81; PULSE 84–116; RESP 0–28; TEMP 33.7–37.7; O2SAT 82–100; BMI 23.6
--- NOTE | 2025-09-03 00:55 | PC.NURSE ---
Went to assess patient, found the patient having agonal breathing, non responsive to sternal rub, rapid response called. Vital signs had an oxygen saturation of 82-89% and patient changed to non-rebreather mask,with oxygen improving to 100%, magnesium and solu-medrol given,labs collected, patient taken to CT scans and then transferred to IMU. Family notified.
[2025-09-03 01:10] LABS: Alveolar/Arterial O2 Gradient 543.5 mmHg; Carboxyhemoglobin 1.3 % THb (0-2.0); Fractional Inspired Oxygen 100 %; HCO3 ABG 23.4 mEq/l (22.0-26.0); Methemoglobin ABG 0.3 %THb (0-1.5); Oxygen Content ABG 11.7 %vol (16.0-22.0); Oxygen Saturation ABG 97.3 % (95.0-100.0); PCO2 ABG 56.3 mmHg (35.0-45.0); PO2 ABG 113.2 mmHg (80.0-100.0); PO2 FiO2 Ratio Arterial Blood 1.13 %; Reduced Hemoglobin 2.1 %THb (0-5.0)
--- NOTE | 2025-09-03 01:12 | ECG_ITS ---
Test Date: 2025-09-03 01:17:31 Measurements Intervals [place] Rate: 108 P: 3 TX: 151 QRS: -47 QRSD: 153 T: 57 QT: 370 QTc: 497 Interpretive Statements SINUS TACHYCARDIA RIGHT BUNDLE BRANCH BLOCK LEFT ANTERIOR FASCICULAR BLOCK BASELINE ARTIFACT- I, III, AVR, AVL, AVF, V4, V6 ABNORMAL ECG Compared to ECG 08/30/2025 09:17:00 NO SIGNIFICANT CHANGE Electronically Signed On 09-03-2025 05:14:48 CDT by Bernabe Estrada D.O.
[2025-09-03] MEDS: IPRATROPIUM 0.5 MG/ALBUTEROL SULFATE 2.5 MG (BASE) AMPUL.NEB 3 ML INHALATION ×4 (01:13→20:39)
[2025-09-03 01:15] LABS: Liters per Minute 15.0 LPM; Modified Allen's Test Pass; Site Drawn LEFT RADIAL
[2025-09-03] MEDS: MAGNESIUM SULF 2 GM/WATER 50ML 2 GM/50 ML BAG IVPB (01:29)
[2025-09-03 01:47] LABS: Hematocrit 23.6 % (42.0-52.0); Hemoglobin 7.8 g/dL (14.0-18.0); Mean Corpuscular HGB Conc 33.1 g/dl (32-36); Mean Corpuscular Hemoglobin 31.6 pg (26-34); Mean Corpuscular Volume 95.5 fl (80-100); Platelet Count Result 162 k/mm3 (150-375); Red Blood Count 2.47 M/mm3 (4.6-6.20); White Blood Count 7.9 K/mm3 (4.5-10.0)
[2025-09-03 01:55] LABS: Ammonia 33 umol/L (9-30)
[2025-09-03 01:56] LABS: Alanine Aminotransferase 17 U/L (6-50); Albumin Level 2.5 g/dL (3.5-5.1); Alkaline Phosphatase 97 U/L (38-126); Anion Gap 1 mmol/L (4-12); Aspartate Amino Transferase 49 U/L (17-59); Bilirubin,Total 0.8 mg/dL (0.2-1.3); Blood Urea Nitrogen 17 mg/dL (9-20); Calcium 8.0 mg/dL (8.4-10.2); Carbon Dioxide 27 mmol/L (22-30); Chloride 107 mmol/L (98-107); Estimated CRCL calculation 109 ml/min; Estimated Glomerular Filt Rate > 60; Glucose 120 mg/dL (65-110); Magnesium 1.9 mg/dL (1.6-2.3); Potassium 3.7 mmol/L (3.4-5.0); Sodium 135 mmol/L (137-145); Total Protein 4.7 g/dL (6.3-8.2)
[2025-09-03 02:10] LABS: NT Pro B Type Natriuretic Pept 1280 pg/mL (19.9-100); Troponin I 0.052 ng/mL (0.000-0.034)
[2025-09-03 02:14] LABS: Band Neutrophils Percent 4 % (0-6); Basophils Absolute Manual 0.15 K/mm3 (0.0-0.1); Basophils Percent Manual 2 % (0-1); Lymphocytes Absolute Manual 0.47 K/mm3 (1.1-4.5); Lymphocytes Percent Manual 6.0 % (18-44); Metamyelocytes Percent 1 %; Monocytes Absolute Manual 0.71 K/mm3 (0.1-0.90); Monocytes Percent Manual 9 % (3-9); Neutrophils Absolute Manual 6.47 K/mm3 (1.3-6.7); Neutrophils Percent Manual 78 % (46-73); Total Cells Counted 100
[2025-09-03 02:15] LABS: Anisocytosis 1+; Hypochromasia 1+; Macrocytosis 1+ (NORMAL); Schistocytes None Seen
--- NOTE | 2025-09-03 02:56 | P.PNCROSS_ITS ---
Event Note Event Note Event Note: Called to bedside for rapid response. Patient obtunded, not responding the, ag onal breathing/mouth breathing, coarse breath sounds. Pupils 3 mm bilaterally not reactive to light. No lower extremity edema, appears very cachectic. Not responding to deep sternal rub. Lung auscultation reveals coarse breath sounds diffusely, rhonchi. Patient has Lyrica, fentanyl p.r.n., Xanax p.r.n.. He has not received fentanyl or Xanax recently. Those were all discontinued. Glucose check over 100 Patient was on 2 L, had some desaturation to 89%. Placed on non-rebreather with improvement. Blood pressure 100/60. Heart rate 110. EKG demonstrates sinus tachycardia with right bundle branch block. ABG obtained demonstrates pH 7.23, pCO2 56.3, PO2 113 on non-rebreather, bicarb 23.4. No previous data to compare. Check quad viral screen, full respiratory viral pathogen panel. Julien labs otherwise ordered. Troponin elevated, will continue to trend. Patient given DuoNeb. Magnesium 2 g rider, Solu-Medrol 125 mg IV x1. Afterwards he started to open his eyes but only briefly and still did not participate. Patient sent down for CT chest, CT head, CTA head and neck. Metoprolol succinate placed on hold. Transfer to IMU. The patient's son did arrive. I had a lengthy discussion over 20 minutes about the patient's comorbidities, current status, prognosis, I reviewed the patient's charting and images with the son. His CT chest compared to just a few hours ago has worsening pleural effusions, almost whiteout of his right lung, left lung is worse. Severe bilateral opacities. All his questions and concerns were answered to satisfaction. Patient's son then had a phone call with his siblings and his mother (patient's ) and they tell us want to respect the patient's wishes of being resuscitated. They would like to continue with aggressive therapy, CPR, intubation. I did again let them know the patient's worsening status and his chances of recovery with meaningful functional status and the risk versus benefits of resuscitation. Metoprolol succinate placed on hold. Trial small dose Lasix 20 mg IV x1 with concurrent albumin infusion. Greater than 75 minutes spent on [id number] time, critical care management, discussion with the family.
[2025-09-03 03:49] LABS: Influenza A QL RT-PCR Negative (Negative); Influenza B QL RT-PCR Negative (Negative); RSV RNA, RT-PCR Negative (Negative); SARS-CoV-2 RNA PCR Negative (Negative)
[2025-09-03] MEDS: ALBUMIN HUMAN 25% 25 GM/100 ML 200 ML IVPB (04:05)
[2025-09-03] MEDS: NOREPINEPHRINE 8 MG/D5W 250 ML 8 MG/250 ML BAG 18.75 MG IV CONT (04:15)
--- NOTE | 2025-09-03 05:07 | CY_PTH ---
PATIENT: Gume Roberson Jr. LOC: [id number] U#:[id number] AGE/SX: 75/M ROOM: 240 RE08/30/[address]: Greyson Price MD : 1950 BED: 01 DIS: 09/13/2025 SPEC #: [id number] RECD: 09/03/25 08:39 STATUS: SOUDeirdre REQ #: [id number] MEL: 09/03/25 05:[address]: Denise Davis DEPT: [facility] Cytology RECD BY: Josselyn Martin MLT, (ASCP) ENTERED: 09/03/25 08:39 SP TYPE: Cytology OTHR DR: MD Jeremy Goodman MD Michael E. Mulligan, MD Onyema Nnanna, MD Tissues: A - Pleural Fluid Procedures: Julien Keratin Hematoxylin and Eosin Stain Cell Block [id number] Cytopathology Cytospin
[2025-09-03] MEDS: ETOMIDATE 20 MG/10 ML AMPUL 10 MG IV PUSH (05:18)
--- NOTE | 2025-09-03 05:18 | ED.PROCEDURE ---
Procedures Intubation Intubation Date: 09/03/25 Intubation Time: 04:30 Consent: Consent granted by family members under emergent circumstances secondary to patient's obtundation and respiratory failure A pre-procedural Time-Out was completed immediately before starting the procedure and confirmed: Patient Identification, Site, Procedure, Patient Position and the Availability of Requisite Equipment: Yes Sedative: etomidate Mg given: 10 Paralytic: rocuronium Mg given: 100 Laryngoscope: fiber optic video scope ET tube size: 7.5 Tube secured depth (cm): 25 Tube secured location: lips Tube placement confirmation: visualized tube passing through cords, equal breath sounds bilaterally, no breath sounds over epigastrium and confirmation by capnometry Patient tolerated procedure: well and no complications Intubation complications: none Additional comments: Hedy intubation hypotension was treated with fluids and push dose pressors with low-dose Levophed, no post intubation hypotension noted improvement in pressures afterwards. Chest Tube Chest Tube 1: Chest tube location: Anterior Chest Tube Type: standard Size of tube: 9 Chest tube procedure: Yes betadine prep Incision made with: #11 blade [place] of air heard: No Tube Drainage: fluid (Thick exudate appearing fluid) Amount of initial drainage (ml): 630 Post procedure: other (Removed after thoracentesis) Post procedure CXR?: Yes Post Procedure: post CXR reviewed and other (Improvement in pleural effusion) Patient tolerated procedure: Yes Progress: Diagnostic and therapeutic thoracentesis completed at bedside with removal of 630 mL of fluid that was thick and transition of likely. Improvement oxygenation status and hemodynamics after this emergent thoracentesis completed.
[2025-09-03] MEDS: ROCURONIUM BROMIDE 50 MG/5 ML VIAL 100 MG IV PUSH (05:19)
[2025-09-03] MEDS: PHENYLEPHRINE 1,000 MCG/10 ML SYRINGE 500 MCG IV PUSH (05:19)
[2025-09-03] MEDS: SODIUM BICARBONATE 8.4% 50 MEQ/50 ML SYRINGE IV PUSH (05:20)
[2025-09-03] MEDS: PHENYLEPHRINE 1,000 MCG/10 ML SYRINGE 100 MCG IV PUSH (05:20)
[2025-09-03 05:23] LABS: Hematocrit 23.5 % (42.0-52.0); Hemoglobin 7.5 g/dL (14.0-18.0); Mean Corpuscular HGB Conc 31.9 g/dl (32-36); Mean Corpuscular Hemoglobin 30.9 pg (26-34); Mean Corpuscular Volume 96.7 fl (80-100); Platelet Count Result 168 k/mm3 (150-375); Red Blood Count 2.43 M/mm3 (4.6-6.20); White Blood Count 8.3 K/mm3 (4.5-10.0)
[2025-09-03] MEDS: PHENYLEPHRINE 1,000 MCG/10 ML SYRINGE 900 MCG IV PUSH (05:23)
[2025-09-03 05:35] LABS: Alanine Aminotransferase 18 U/L (6-50); Albumin Level 2.6 g/dL (3.5-5.1); Alkaline Phosphatase 124 U/L (38-126); Anion Gap 6 mmol/L (4-12); Aspartate Amino Transferase 55 U/L (17-59); Bilirubin,Total 1.0 mg/dL (0.2-1.3); Blood Urea Nitrogen 16 mg/dL (9-20); Calcium 7.8 mg/dL (8.4-10.2); Carbon Dioxide 26 mmol/L (22-30); Chloride 107 mmol/L (98-107); Estimated CRCL calculation 103 ml/min; Estimated Glomerular Filt Rate > 60; Glucose 134 mg/dL (65-110); Potassium 4.0 mmol/L (3.4-5.0); Sodium 139 mmol/L (137-145); Total Protein 4.8 g/dL (6.3-8.2)
[2025-09-03 05:38] LABS: Alveolar/Arterial O2 Gradient 30.3 mmHg; Carboxyhemoglobin 0.6 % THb (0-2.0); Fractional Inspired Oxygen 30 %; HCO3 ABG 21.8 mEq/l (22.0-26.0); Methemoglobin ABG 0.1 %THb (0-1.5); Oxygen Content ABG 14.1 %vol (16.0-22.0); Oxygen Saturation ABG 98.4 % (95.0-100.0); PCO2 ABG 43.1 mmHg (35.0-45.0); PO2 ABG 133.0 mmHg (80.0-100.0); PO2 FiO2 Ratio Arterial Blood 4.43 %; Reduced Hemoglobin 1.5 %THb (0-5.0)
[2025-09-03] MEDS: SODIUM CHLORIDE 0.9% IV 1,000 ML 999 ML IV CONT (05:40)
[2025-09-03 05:42] LABS: Site Drawn RIGHT BRACHIAL
[2025-09-03 05:43] LABS: Arterial Blood Gas Tidal Volume 400 ml; Arterial Blood Gas Ventilator rate 18 /MIN
[2025-09-03 05:49] LABS: Troponin I 0.085 ng/mL (0.000-0.034)
[2025-09-03] MEDS: VANCOMYCIN 1,500 MG/NS 500 ML 1,500 MG/500 ML BAG 250 MG IVPB ×2 (07:02→18:27)
[2025-09-03 07:36] LABS: Appearance Pleural Fluid Hazy (Clear); Color Pleural Fluid Yellow (Colorless); Lymphocytes Pleural Fluid 22 %; Macrophages Pleural Fluid 7 %; Mesothelial Cells Pleural Flui 4 %; Monocytes Pleural Fluid 12 %; Neutrophils Pleural Fluid 54 % (0-25); Nucleated Cell Pleural Fluid 179 /uL (0-1000); Other Cells Pleural Fluid 1 %
[2025-09-03] MEDS: ALBUMIN HUMAN 25% 25 GM/100 ML 100 ML IVPB ×3 (08:25→17:21)
[2025-09-03 08:29] LABS: Hematocrit 21.1 % (42.0-52.0); Mean Corpuscular HGB Conc 32.7 g/dl (32-36); Mean Corpuscular Hemoglobin 31.2 pg (26-34); Mean Corpuscular Volume 95.5 fl (80-100); Platelet Count Result 163 k/mm3 (150-375); Red Blood Count 2.21 M/mm3 (4.6-6.20); White Blood Count 8.3 K/mm3 (4.5-10.0)
[2025-09-03] MEDS: LACTATED RINGERS 500 ML IV CONT (08:29)
[2025-09-03 08:33] LABS: Hemoglobin 6.9 g/dL (14.0-18.0)
[2025-09-03] MEDS: MINERAL OIL/WHITE PETROLATUM OINTMENT 1 APPLIC EACH EYE ×2 (08:36→20:39)
[2025-09-03 08:45] LABS: Magnesium 2.3 mg/dL (1.6-2.3)
[2025-09-03 08:46] LABS: INR 1.6; Prothrombin Time 18.8 Seconds (11.1-14.7)
[2025-09-03 08:47] LABS: Fibrinogen 430 mg/dl (215-510)
--- NOTE | 2025-09-03 08:55 | WPDCNINT ---
Assessment and Plan Assessment and plan (1) Septic shock: Code(s): A41.9 - Sepsis, unspecified organism; R65.21 - Severe sepsis with septic shock Status: Acute Assessment and Plan: 09/03/2025: Patient was transferred from medical floor to ICU where he was intubated, found to be hypotensive, received albumin -and IV fluid bolus, started on Levophed -patient does have a port, will use that for the pressors -continue Levophed, maintain mean arterial MAP > 65 mmHg, SBP > 100 mmHg -currently on azithromycin, cefepime, vancomycin per Infectious Disease -fluconazole for balanitis per Infectious Disease -08/30: Blood cultures negative x2 -09/03: Blood cultures obtained and pending (2) Acute respiratory failure: Code(s): J96.00 - Acute respiratory failure, unspecified whether with hypoxia or hypercapnia Status: Acute Assessment and Plan: Patient is transferred from medical floor after being found hypoxic, hypotensive and less responsive/altered mental status -increasing O2 requirements on Airvo -09/03: Patient was intubated by ER physician in the ICU -currently on CMV mode of ventilation, peep of 5, 35% FiO2. -ABGs, chest x-ray and CT chest reviewed. -continue bronchodilator -09/03: Status post right thoracentesis this by ER physician, drained 600 mL yellow sticky fluid 09/03/2025: CT chest with contrast -IMPRESSION: 1. Significant decrease in lung volumes with prominent dependent atelectasis including partial collapse of the bilateral lower lobes. Superimposed pneumonia not excludable. 2. No significant change in small left and moderate-sized right pleural effusions. 3. Moderate amount of ascites in the upper abdomen. 4. Scattered sclerotic bone lesions consistent with known metastatic prostate cancer and with chronic pathologic fracture at T10. 09/02: IMPRESSION: Moderate loculated right pleural effusion and small left pleural effusion. Patchy infiltrates are present bilaterally. There is mediastinal lymphadenopathy. Sclerotic changes within the T9 vertebral body suggestive of metastasis. (3) Pleural effusion: Code(s): J90 - Pleural effusion, not elsewhere classified Status: Acute Assessment and Plan: 09/03: Thoracentesis perform a ER physician early hours with a removal of 600 mL in yellow sticky fluid -pleural fluid studies pending -will order pleural LDH level -according the hospitalist, pleural fluid looked like an exudate. Will confirm with pleural fluid studies -continue antibiotics as above (4) Pneumonia: Code(s): J18.9 - Pneumonia, unspecified organism Status: Acute Assessment and Plan: Consolidation noted on CT scan of the chest -continue antibiotics as above -patient may require bronchoscopy, will have pulmonology evaluate the patient (5) Encephalopathy: Code(s): G93.40 - Encephalopathy, unspecified Status: Acute Assessment and Plan: Encephalopathy could be multifactorial, septic shock, hypotension, hypoxia -currently intubated, not on any sedation. -will maintain Euthermia, adequate blood pressures, adequate oxygenation IMPRESSION: CT HEAD: 1. No acute intracranial findings. CTA NECK: 1. Motion artifact along carotid bulbs. Stenosis or even dissection not excluded. Recommend carotid ultrasound. CTA HEAD: 1. No large vessel arterial occlusive disease or other acute findings. 2. No aneurysms. (6) Coagulopathy: Code(s): D68.9 - Coagulation defect, unspecified Status: Acute Assessment and Plan: PTT elevated, continue to monitor, patient not on any anticoagulation at this time (7) Anemia: Code(s): D64.9 - Anemia, unspecified Status: Acute Assessment and Plan: 09/03: Hemoglobin dropped to 6.9 this morning from 7.5. will transfuse 1 unit of packed RBCs (8) Protein calorie malnutrition: Code(s): E46 - Unspecified protein-calorie malnutrition Status: Acute Assessment and Plan: Protein calorie malnutrition, BMI of 23.6 -likely moderate protein calorie malnutrition (9) Metastatic malignant neoplasm to prostate: Code(s): C79.82 - Secondary malignant neoplasm of genital organs Status: Acute Assessment and Plan: Patient has metastatic prostate cancer, being treated by Dr. Walsh with palliative chemotherapy (10) Candidal balano-posthitis: Code(s): B37.49 - Other urogenital candidiasis Status: Acute Assessment and Plan: Continue fluconazole (11) COPD (chronic obstructive pulmonary disease): Code(s): J44.9 - Chronic obstructive pulmonary disease, unspecified Status: Acute Assessment and Plan: Continue DuoNebs, on mechanical ventilation Plan DVT prophylaxis: SCDs, no chemoprophylaxis due to anemia and drop in hemoglobin Stress ulcer prophylaxis: Protonix IV q.12 hours Nutrition: NPO for now Code Status: Full code Critical Care Time Spent: 54 minutes Discussed with son, Timmy, updated him with patient's condition and plan of care. Son is aware that the patient is on vasopressors, mechanical ventilation, antibiotics, warming blanket for low body temperature. He stated that the patient wanted everything to be done for him including resuscitation. I did recommend no CPR in case of cardiac arrest given that patient is frail, CPR will cause more damage than good, risk of rib fractures most suffering for the patient. He is going to talk to his siblings and get back to me regarding DNR status. Due to a high probability of clinically significant, life threatening deterioration, the patient required my highest level of preparedness to intervene emergently and I personally spent this critical care time directly and personally managing the patient. This critical care time included obtaining a history; examining the patient; pulse oximetry; ordering and review of studies; arranging urgent treatment with development of a management plan; evaluation of patient's response to treatment; frequent reassessment; and discussions with other providers. It was exclusive of separately billable procedures and treating other patients and teaching time. Please see Assessment and Plan section and the rest of the note for further information on patient assessment and treatment This dictation may have been done utilizing a voice recognition system. Attempts have been made to correct errors. However, there may be uncorrected grammatical, spelling, and recognitions errors present. 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 is a 75 year old male with significant past medical history of squamous cell carcinoma of the lung, anxiety, COPD, coronary artery disease, proctitis, ulcerative colitis, history of lobectomy of the lung, history of coronary artery bypass, history of colon surgery, metastatic prostate CA and has been undergoing palliative chemotherapy with Dr. Walsh, last chemotherapy was 08/26/2025 and presented the ED on 08/30/2025 with complains of generalized weakness, failure to thrive, penile infection and soreness, mouth sores. WBC count was 0.8 with an ANC of 400. BMI of 23.6, weight loss, decreased appetite. In the ER hemoglobin was found to be 7.9, chest x-ray shows was concerning for pneumonitis patient was started on cefepime and vancomycin, infectious disease has been following the patient during the course of his hospital stay, they added azithromycin. Blood cultures from 08/30/2025 a negative x2. Patient was on the medical floor being treated for neutropenic precautions 09/03/2025: rapid response was called as patient was desaturating, along with altered mental status, hypotension, increased oxygen requirements via Airvo. Patient received multiple doses of phenylephrine pushes started on Levophed. Received bicarb and a bolus of normal saline. Patient was brought to the ICU, intubated and placed on mechanical ventilation. CT scan of the chest showed large right-sided pleural effusion along with pneumonia, moderate amount of ascites, ER physician performed a bedside right-sided thoracentesis which yielded 600 mL of thick yellow fluid. Pleural fluid studies were sent. Patient also had dilated 8 mm right pupil but reactive, left pupil was 3 mm and reactive. Stat CT scan did not show any acute intracranial abnormalities. CTA neck showed motion artifact along the carotid bulbs, stenosis or even dissection not excluded, recommended carotid ultrasound. Patient seen and examined in the ICU this morning, remains intubated on CMV mode of ventilation, peep of 5, 35% FiO2, patient is hypothermic on a Manuel Hugger. Urine output has been low. Patient is on Levophed at 15 mcg/min. Not on any sedation, does not open his eyes or follow simple commands. Review of Systems Review of Systems: ROS unobtainable: Yes unobtainable due to endotracheal tube, unobtainable due to medical condition and unobtainable due to mental status PMFSH Past Medical History Medical History (Updated 09/03/25 @ 09:34 by Edelmira Best MD) Aneurysm of popliteal artery Allergic rhinitis Deviated nasal septum Anterior epistaxis Squamous cell carcinoma lung Anxiety Fistula Bundle branch block, right COPD (chronic obstructive pulmonary disease) Coronary artery disease Proctitis Ulcerative colitis Surgical History Surgical History Port-A-Cath in place 01/14/25 Placement right internal jugular vein Port-A-Cath using ultrasound and under fluoroscopy per Dr. Arenas History of lobectomy of lung S/P pneumonectomy H/O heart bypass surgery History of colon surgery Family History Family History Father Asthma Mother Acute myocardial infarction Son Carcinoma of colon Other Family history of cardiovascular disease Social History Social History Social History: Caffeine-tea Smoking packs per day: 2 Smoking cigarettes per day: 40.0 Years smoked: 35 Smoking pack-years: 70.00 Smoking status: Former smoker Second hand tobacco smoke exposure: No Smoking end date: 08/30/05 Alcohol intake: never Substance use: never Substance use type: does not use Do You Feel Safe in your Home?: Yes Lack of Transportation: No Lack of Food: Never True Current Housing: I Have Housing Concerned About Future Housing: No Difficulty Paying Gas/Electric Bills: No Difficulty Paying for Meds: No Currently Unemployed: No Education: Bachelor's Degree Difficulty w/ Childcare or Family Care: No Living arrangements: with family Additional living arrangements comments: Spiritual care concerns: No Meds Home Medications and Allergies Home Medications ?Medication ?Instructions ?Recorded ?Confirmed ?Type cholecalciferol (vitamin D3) 125 5,000 unit PO DAILY 10/17/19 08/30/25 History mcg (5,000 unit) capsule mesalamine 1.2 gram tablet,delayed 2.4 gm PO DAILY 10/17/19 08/30/25 History release (Lialda) metoprolol succinate 25 mg 25 mg PO HS 10/17/19 08/30/25 History tablet,extended release 24 hr (Toprol XL) multivitamin 1 tablet PO DAILY 10/17/19 08/30/25 History fenofibrate 160 mg tablet See Rx Instructions .Route 12/01/24 08/30/25 Rx .COMPLEX #90 tabs alprazolam 0.25 mg tablet (Xanax) 0.25 mg PO QHS PRN anxiety 04/26/25 08/30/25 History triamcinolone acetonide 0.1 % 1 applic topical PRN 04/26/25 08/30/25 History topical cream abiraterone 250 mg tablet 1,000 mg PO DAILY 06/22/25 08/30/25 History lidocaine-prilocaine 2.5 %-2.5 % 1 applic topical DAILY PRN pain 06/22/25 08/30/25 History topical cream ondansetron 8 mg disintegrating 8 mg PO Q8-12H PRN nausea and 06/22/25 08/30/25 History tablet vomiting prednisone 5 mg tablet 5 mg PO Q12H 06/22/25 08/30/25 History mupirocin 2 % topical ointment 1 applic topical BID 07/22/25 08/30/25 History ferrous sulfate 325 mg (65 mg 325 mg PO DAILY 08/10/25 08/30/25 History iron) tablet (Feosol) vitamin B12 500 mcg-folic acid 400 1 tablet PO DAILY 08/10/25 08/30/25 History mcg tablet simvastatin 20 mg tablet (Zocor) 20 mg PO HS #90 tabs 08/19/25 08/30/25 Rx terbinafine HCl 1 % topical cream 1 applic topical BID #30 grams 08/27/25 08/30/25 Rx (Lamisil AT) pregabalin 100 mg capsule (Lyrica) 100 mg PO Q8H 90 days #270 caps 08/28/25 08/30/25 Rx terbinafine HCl 250 mg tablet 250 mg PO DAILY #30 tabs 08/28/25 08/30/25 Rx tamsulosin 0.4 mg capsule 0.4 mg PO DAILY 08/30/25 08/31/25 History Allergies Allergy/AdvReac Type Severity Reaction Status Date / Time escitalopram Allergy Unknown Asthma Verified 08/30/25 09:31 sildenafil Allergy Unknown Hypotension Verified 08/30/25 09:31 Penicillins AdvReac Mild Diarrhea Verified 08/30/25 09:31 amoxicillin AdvReac Unknown Diarrhea Verified 08/30/25 09:31 ciprofloxacin AdvReac Unknown Diarrhea Verified 08/30/25 09:31 gemfibrozil AdvReac Unknown myalgias Verified 08/30/25 09:31 lactase AdvReac Unknown Nausea Verified 08/30/25 09:31 Vital Signs Vital Signs - 24 hr 09/02/25 12:11 09/02/25 13:53 09/02/25 13:59 Temperature 96.8 F L Pulse Rate 104 H 104 H 107 H Respiratory Rate 18 20 20 Blood Pressure 95/56 L Pulse Oximetry 100 Oxygen Delivery Oxygen Flow Rate Fraction of Inspired Oxygen 09/02/25 16:00 09/02/25 20:00 09/02/25 20:00 Temperature 96.8 F L Pulse Rate 106 H 112 H 112 H Respiratory Rate 20 16 16 Blood Pressure 99/43 L Pulse Oximetry 100 91 Oxygen Delivery Nasal Cannula Oxygen Flow Rate 2 Fraction of Inspired Oxygen 09/02/25 20:00 09/02/25 20:05 09/02/25 21:00 Temperature 97.6 F Pulse Rate 118 H 112 H Respiratory Rate 16 16 Blood Pressure 95/53 L Pulse Oximetry 93 93 Oxygen Delivery Nasal Cannula Oxygen Flow Rate 2 Fraction of Inspired Oxygen 09/03/25 00:58 09/03/25 01:00 09/03/25 01:13 Temperature 96.6 F L Pulse Rate 114 H 100 Respiratory Rate 20 16 Blood Pressure 101/48 L 100/65 Pulse Oximetry 100 82 L Oxygen Delivery Non-Rebreather Mask Oxygen Flow Rate 15 Fraction of Inspired Oxygen 09/03/25 01:20 09/03/25 02:00 09/03/25 02:11 Temperature 97.4 F L Pulse Rate 110 H 107 H 100 Respiratory Rate 16 28 H 26 H Blood Pressure 99/64 L Pulse Oximetry 97 93 Oxygen Delivery High Flow Therapy with Na Oxygen Flow Rate 50 Fraction of Inspired Oxygen 50 09/03/25 03:21 09/03/25 03:23 09/03/25 04:00 Temperature 97.5 F L Pulse Rate 104 H Respiratory Rate 26 H Blood Pressure 93/43 L 93/43 L Pulse Oximetry 93 100 Oxygen Delivery Non-Rebreather Mask Oxygen Flow Rate 15 Fraction of Inspired Oxygen 09/03/25 04:00 09/03/25 04:00 09/03/25 04:15 Temperature Pulse Rate 105 H 104 H 104 H Respiratory Rate 21 H Blood Pressure 95/49 L 90/50 L Pulse Oximetry 100 Oxygen Delivery Oxygen Flow Rate Fraction of Inspired Oxygen 09/03/25 04:15 09/03/25 04:30 09/03/25 04:30 Temperature Pulse Rate 103 H 112 H 111 H Respiratory Rate 14 14 Blood Pressure 90/50 L 84/47 L Pulse Oximetry 100 100 100 Oxygen Delivery Mechanical Ventilation Oxygen Flow Rate Fraction of Inspired Oxygen 100 09/03/25 04:31 09/03/25 04:45 09/03/25 04:50 Temperature Pulse Rate 111 H 103 H Respiratory Rate 18 Blood Pressure 84/47 L 115/51 L Pulse Oximetry 100 Oxygen Delivery Mechanical Ventilation Oxygen Flow Rate Fraction of Inspired Oxygen 35 09/03/25 05:00 09/03/25 05:00 09/03/25 05:00 Temperature Pulse Rate 110 H 110 H Respiratory Rate 18 Blood Pressure 124/61 124/61 Pulse Oximetry 100 Oxygen Delivery Mechanical Ventilation Oxygen Flow Rate Fraction of Inspired Oxygen 09/03/25 05:00 09/03/25 05:05 09/03/25 05:09 Temperature Pulse Rate 111 H 114 H Respiratory Rate 10 L 0 L Blood Pressure 120/63 105/81 Pulse Oximetry 100 100 Oxygen Delivery Oxygen Flow Rate Fraction of Inspired Oxygen 30 09/03/25 05:10 09/03/25 05:12 09/03/25 05:15 Temperature Pulse Rate 113 H 111 H 112 H Respiratory Rate 18 Blood Pressure 115/54 L 108/49 L 101/47 L Pulse Oximetry 100 100 Oxygen Delivery Oxygen Flow Rate Fraction of Inspired Oxygen 09/03/25 05:16 09/03/25 05:18 09/03/25 05:20 Temperature Pulse Rate 110 H 111 H 108 H Respiratory Rate 18 18 18 Blood Pressure 101/51 L 103/49 L 99/48 L Pulse Oximetry 100 100 100 Oxygen Delivery Oxygen Flow Rate Fraction of Inspired Oxygen 09/03/25 05:22 09/03/25 05:24 09/03/25 05:26 Temperature Pulse Rate 108 H 106 H 110 H Respiratory Rate 18 18 18 Blood Pressure 94/45 L 94/46 L 104/46 L Pulse Oximetry 100 100 100 Oxygen Delivery Oxygen Flow Rate Fraction of Inspired Oxygen 09/03/25 05:29 09/03/25 05:30 09/03/25 05:37 Temperature Pulse Rate 106 H 97 104 H Respiratory Rate 18 18 Blood Pressure 85/42 L 86/45 L Pulse Oximetry 100 100 100 Oxygen Delivery Mechanical Ventilation Oxygen Flow Rate Fraction of Inspired Oxygen 30 09/03/25 05:41 09/03/25 05:42 09/03/25 05:44 Temperature Pulse Rate 103 H 103 H 103 H Respiratory Rate 18 18 18 Blood Pressure 95/44 L 97/45 L 107/47 L Pulse Oximetry 100 100 100 Oxygen Delivery Oxygen Flow Rate Fraction of Inspired Oxygen 09/03/25 05:46 09/03/25 05:48 09/03/25 05:55 Temperature Pulse Rate 103 H 103 H 103 H Respiratory Rate 18 18 14 Blood Pressure 97/46 L 98/49 L 104/44 L Pulse Oximetry 100 100 100 Oxygen Delivery Oxygen Flow Rate Fraction of Inspired Oxygen 09/03/25 05:57 09/03/25 05:59 09/03/25 06:00 Temperature Pulse Rate 100 98 98 Respiratory Rate 18 18 Blood Pressure 106/46 L 99/42 L 104/40 L Pulse Oximetry 100 100 Oxygen Delivery Oxygen Flow Rate Fraction of Inspired Oxygen 09/03/25 06:00 09/03/25 06:01 09/03/25 06:03 Temperature Pulse Rate 98 99 96 Respiratory Rate 18 18 Blood Pressure 104/40 L 95/40 L Pulse Oximetry 100 100 Oxygen Delivery Oxygen Flow Rate Fraction of Inspired Oxygen 09/03/25 06:05 09/03/25 06:07 09/03/25 06:09 Temperature Pulse Rate 96 95 96 Respiratory Rate 18 18 18 Blood Pressure 93/41 L 100/54 L 110/50 L Pulse Oximetry 100 100 Oxygen Delivery Oxygen Flow Rate Fraction of Inspired Oxygen 09/03/25 06:11 09/03/25 06:13 09/03/25 06:15 Temperature Pulse Rate 96 96 95 Respiratory Rate 18 18 18 Blood Pressure 114/59 L 112/60 100/52 L Pulse Oximetry 100 100 100 Oxygen Delivery Oxygen Flow Rate Fraction of Inspired Oxygen 09/03/25 06:17 09/03/25 06:19 09/03/25 06:21 Temperature Pulse Rate 96 100 98 Respiratory Rate 18 18 18 Blood Pressure 103/55 L 114/60 102/52 L Pulse Oximetry 100 Oxygen Delivery Oxygen Flow Rate Fraction of Inspired Oxygen 09/03/25 06:23 09/03/25 06:26 09/03/25 06:30 Temperature 92.6 F L Pulse Rate 96 94 93 Respiratory Rate 18 18 18 Blood Pressure 93/54 L 90/46 L 83/45 L Pulse Oximetry 100 100 100 Oxygen Delivery Oxygen Flow Rate Fraction of Inspired Oxygen 09/03/25 06:31 09/03/25 06:45 09/03/25 06:45 Temperature 92.6 F L Pulse Rate 94 90 Respiratory Rate 18 Blood Pressure 85/49 L 95/45 L Pulse Oximetry 100 Oxygen Delivery Oxygen Flow Rate Fraction of Inspired Oxygen 09/03/25 06:46 09/03/25 07:00 09/03/25 07:01 Temperature 92.6 F L Pulse Rate 90 88 Respiratory Rate 18 18 Blood Pressure 95/45 L 81/44 L Pulse Oximetry 100 100 Oxygen Delivery Oxygen Flow Rate Fraction of Inspired Oxygen 09/03/25 07:16 09/03/25 07:30 09/03/25 08:04 Temperature Pulse Rate 85 85 Respiratory Rate 6 L 18 Blood Pressure 99/48 L Pulse Oximetry 100 100 Oxygen Delivery Mechanical Ventilation Oxygen Flow Rate Fraction of Inspired Oxygen 09/03/25 08:06 09/03/25 08:25 09/03/25 08:34 Temperature Pulse Rate 87 88 Respiratory Rate 20 Blood Pressure Pulse Oximetry 100 Oxygen Delivery Mechanical Ventilation Oxygen Flow Rate Fraction of Inspired Oxygen 30 30 09/03/25 08:46 Temperature Pulse Rate 94 Respiratory Rate 21 H Blood Pressure Pulse Oximetry Oxygen Delivery Oxygen Flow Rate Fraction of Inspired Oxygen Exam Narrative: General: Ill-appearing elderly patient, intubated HEENT:? Right pupil is 8 mm, reactive, left pupil is 3 mm and reactive. Sclera is clear, eyes are sunken Neck:? Supple Respiratory:? Coarse breath sounds bilaterally, rales auscultated bilaterally, no wheezing, adequate air entry otherwise Cardiac:? S1-S2 is normal, regular rate and rhythm Abdomen: Soft, nontender, non distended, hypoactive bowel sounds Extremities:? No edema, palpable pedal pulse Neuro:? Intubated, not on any sedation, does not open his eyes or follow simple commands, withdraws to pain stimuli Skin:? Skin tears noted on the feet bilaterally, Psych:? Unable to assess at this time Results Labs 09/03/25 08:24 09/03/25 05:15 Labs: Short CBC 09/03/25 09/03/25 09/03/25 Range/Units 01:34 05:15 08:24 WBC 7.9 8.3 8.3 (4.5-10.0) K/mm3 Hgb 7.8 L 7.5 L 6.9 L* (14.0-18.0) g/dL Hct 23.6 L 23.5 L 21.1 L (42.0-52.0) % Plt Count 162 168 163 (150-375) k/mm3 BMP 09/03/25 09/03/25 01:34 05:15 Sodium 135 L 139 Potassium 3.7 4.0 Chloride 107 107 Carbon Dioxide 27 26 BUN 17 16 Creatinine 0.47 L 0.50 L Glucose 120 H 134 H Calcium 8.0 L 7.8 L Cardiac Enzymes 09/03/25 09/03/25 Range/Units 01:34 05:15 Troponin I 0.052 H* 0.085 H* D (0.000-0.034) ng/mL Liver Function 09/03/25 09/03/25 Range/Units 01:34 05:15 Total Bilirubin 0.8 1.0 (0.2-1.3) mg/dL AST 49 55 (17-59) U/L ALT 17 18 (6-50) U/L Alkaline Phosphatase 97 124 (38-126) U/L Albumin 2.5 L 2.6 L (3.5-5.1) g/dL Quality VTE Prophylaxis VTE prophylaxis: mechanical ordered Hospitalist MIPS Advance Care Plan I have confirmed that the patient's Advanced Care Plan is present, code status is documented, or surrogate decision maker is listed in patient medical record.: Yes Medication Reconciliation I have utilized all available resources to obtain, update and review the patients current medications (includes all prescriptions, OTC, herbals, cannabis, and nutritional supplements).: Yes
[2025-09-03 09:03] LABS: Partial Thromboplastin Time > 200.0 Seconds (22.3-36.8)
[2025-09-03] MEDS: CEFEPIME 2 GM in SODIUM CHLORIDE 0.9% IV 50 ML 100 ML IVPB (09:09)
[2025-09-03] MEDS: PANTOPRAZOLE SODIUM IV 40 MG VIAL IV PUSH ×2 (09:53→20:23)
[2025-09-03] MEDS: FLUCONAZOLE 200 MG/NACL 100 ML 200 MG/100 ML BAG 100 MG IVPB (10:36)
[2025-09-03] MEDS: SODIUM CHLORIDE 0.9% IV 250 ML 30 ML IV CONT (11:08)
--- NOTE | 2025-09-03 11:32 | PCFNICU ---
ICU Rounding Note: Pt current nutrition is NPO. Last recorded weight is 70.5 kg. Bowel Motility: Last reported BM 09/01 Labs Reviewed:Glu 134, Hgb 6.9, Hct 21.11,Alb 2.6 Meds Noted: Levophed, LR, Albumin, Vancomycin Skin: WNL Additional Notes: Patient intubated and currently on no sedation. No plans for nutrition today per Advertising Vice President. Will provide tube feeding recommendations: Vital AF 1.2 at 20 advance by 10 ml q 4 hours to goal Day 1 to 45 ml/hr. Flush 30 ml q 4 hours. Day 2 if tolerates recommend advancing to 65 ml/hr. Goal rate providing 1716 kcal/107 gm protein/1160 ml water. Meeting 97% kcal needs at 25 kcal/kg and 100% protein needs at 1.4 gm/kg. Following daily in ICU rounds.
[2025-09-03] MEDS: MEROPENEM 1 GM in SODIUM CHLORIDE 0.9% IV 100 ML 200 ML IVPB ×2 (11:41→18:27)
[2025-09-03] MEDS: FENTANYL 2,500MCG/NS250ML(*CRX 2,500 MCG/250 ML BAG IV CONT (13:00)
[2025-09-03] MEDS: NOREPINEPHRINE 8 MG/D5W 250 ML 8 MG/250 ML BAG 33.75 MG IV CONT (13:04)
[2025-09-03] MEDS: MIDAZOLAM HCL (*CRX) 2 MG/2 ML VIAL IV PUSH (13:15)
[2025-09-03] MEDS: CENTRAL LINE FLUSH 10 ML IV PUSH ×2 (13:15→21:21)
[2025-09-03] MEDS: MIDAZOLAM 100MG/NS 100ML(*CRX) 100 MG/100 ML BAG IV CONT (13:21)
[2025-09-03 13:33] LABS: Troponin I 0.142 ng/mL (0.000-0.034)
--- NOTE | 2025-09-03 14:23 | PM.CNPUL ---
Assessment and Plan Assessment and plan (1) Pneumonia: Code(s): J18.9 - Pneumonia, unspecified organism Status: Acute Assessment and Plan: R > L infiltrate with loculated pleural effusion on the right side. He is now on Micafungin and Meropenem, Vancomycin stopped. No pathogens identified yet. (2) Acute respiratory failure: Code(s): J96.00 - Acute respiratory failure, unspecified whether with hypoxia or hypercapnia Status: Acute Assessment and Plan: He has low O2 requirement, now 30%. He is on CMV mode, adequate oxygenation despite large right infiltrate and smaller infiltrate on the left. (3) Pleural effusion: Code(s): J90 - Pleural effusion, not elsewhere classified Status: Acute Assessment and Plan: He has a moderate pleural effusion, was tapped, pleural fluid shows yellow hazy fluid, fewer than 2000 RBCs, 179 WBCs with 54 neutrophils, protein and LDH are pending. PH is pending. This fluid does not appear pathogenic, low white blood cell count. (4) Septic shock: Code(s): A41.9 - Sepsis, unspecified organism; R65.21 - Severe sepsis with septic shock Status: Acute Assessment and Plan: on Levophed at 15 mcg, fluid resuscitation; BP is higher. Plan plan: Bronchoscopy tomorrow 9:00 am. Endoscopy team will provide materials and staff to process bronchial specimens, will send Gram stain, C&S, fungal, AFB, viral pathogen studies. History of Present Illness History of Present Illness Consult date: 09/03/25 Chief complaint: Neutropenic fever Narrative: pt seen Sep 03, 2025 at 14:30 in ICU 6 His son López and daughter Aleshia are at the bedside. NEW: Gume Roberson is a 75-year old man who was in fair shape for age and metastatic prostate cancer on chemo, last dose 08/26, walking around, normal cognition 10 days ago, deteriorated last Sunday with sepsis due to fungal balanitis; saw his primary care soon afterwards, worsened, admitted 08/30 with pneumonia, sepsis, low WBC 0.7 and ANC 400. He became hypothermic, had rapid response overnight, brought to ICU 6, intubated. Dr Best asked me to bronch for his right sided pneumonia and pleural effusion as a source of sepsis with his immunocompromised status. His children tell me that he was treated for squamous cell lung cancer a year and a half ago, had surgery, then was diagnosed with prostate cancer which became metastatic. He has been getting chemo through a right port, developed yeast infection last week, started on treatment. He worsened, was admitted Aug 30 with generalized weakness, failure to thrive, penile infection, mouth sores, WBC 0.8, ANC 400;. Today Sep 03 he developed sepsis with shock, drop in saturation, decreased mentation, had a Rapid Response for desaturation, came to ICU 6, was intubated on low amount of O2. CXR showed abnormality on the right side, started on cefepime and vancomycin, ID Added azithromycin. ER physician performed thoracentesis with removal of 600 ml thick yellow fluid. His children tell me that he has not been eating normally, malnourished, losing weight. 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 Walsh, last chemotherapy was 08/26/2025. DATA * sodium 139 potassium 4.0 chloride 107 carbon dioxide 26 BUN 16 creatinine 0.5 troponin 0.085, 0.142.; arterial blood gas today on mechanical ventilation CMV mode rate 18, tidal volume 400, peep 5, FiO2 1.0; pH 7.321, pCO2 43, PO2 133, HC03 21.8, saturation 98.4%; this shows a metabolic acidosis with adequate oxygenation on 100%, weaned over the day, now 30% * 09/03/2025; chest CT ; IMPRESSION: 1. Significant decrease in lung volumes with prominent dependent atelectasis including partial collapse of the bilateral lower lobes. Superimposed pneumonia not excludable. 2. No significant change in small left and moderate-sized right pleural effusions. 3. Moderate amount of ascites in the upper abdomen. 4. Scattered sclerotic bone lesions consistent with known metastatic prostate cancer and with chronic pathologic fracture at T10. Review of Systems Review of Systems: ROS unobtainable: Yes unobtainable due to endotracheal tube PMFSH Past Medical History Medical History (Updated 09/03/25 @ 09:34 by Edelmira Best MD) Aneurysm of popliteal artery Allergic rhinitis Deviated nasal septum Anterior epistaxis Squamous cell carcinoma lung Anxiety Fistula Bundle branch block, right COPD (chronic obstructive pulmonary disease) Coronary artery disease Proctitis Ulcerative colitis Surgical History Surgical History Port-A-Cath in place 01/14/25 Placement right internal jugular vein Port-A-Cath using ultrasound and under fluoroscopy per Dr. Arenas History of lobectomy of lung S/P pneumonectomy H/O heart bypass surgery History of colon surgery Family History Family History Father Asthma Mother Acute myocardial infarction Son Carcinoma of colon Other Family history of cardiovascular disease Social History Social History Social History: Caffeine-tea Smoking packs per day: 2 Smoking cigarettes per day: 40.0 Years smoked: 35 Smoking pack-years: 70.00 Smoking status: Former smoker Second hand tobacco smoke exposure: No Smoking end date: 08/30/05 Alcohol intake: never Substance use: never Substance use type: does not use Do You Feel Safe in your Home?: Yes Lack of Transportation: No Lack of Food: Never True Current Housing: I Have Housing Concerned About Future Housing: No Difficulty Paying Gas/Electric Bills: No Difficulty Paying for Meds: No Currently Unemployed: No Education: Bachelor's Degree Difficulty w/ Childcare or Family Care: No Living arrangements: with family Additional living arrangements comments: Spiritual care concerns: No Meds Home Medications and Allergies Home Medications ?Medication ?Instructions ?Recorded ?Confirmed ?Type cholecalciferol (vitamin D3) 125 5,000 unit PO DAILY 10/17/19 08/30/25 History mcg (5,000 unit) capsule mesalamine 1.2 gram tablet,delayed 2.4 gm PO DAILY 10/17/19 08/30/25 History release (Lialda) metoprolol succinate 25 mg 25 mg PO HS 10/17/19 08/30/25 History tablet,extended release 24 hr (Toprol XL) multivitamin 1 tablet PO DAILY 10/17/19 08/30/25 History fenofibrate 160 mg tablet See Rx Instructions .Route 12/01/24 08/30/25 Rx .COMPLEX #90 tabs alprazolam 0.25 mg tablet (Xanax) 0.25 mg PO QHS PRN anxiety 04/26/25 08/30/25 History triamcinolone acetonide 0.1 % 1 applic topical PRN 04/26/25 08/30/25 History topical cream abiraterone 250 mg tablet 1,000 mg PO DAILY 06/22/25 08/30/25 History lidocaine-prilocaine 2.5 %-2.5 % 1 applic topical DAILY PRN pain 06/22/25 08/30/25 History topical cream ondansetron 8 mg disintegrating 8 mg PO Q8-12H PRN nausea and 06/22/25 08/30/25 History tablet vomiting prednisone 5 mg tablet 5 mg PO Q12H 06/22/25 08/30/25 History mupirocin 2 % topical ointment 1 applic topical BID 07/22/25 08/30/25 History ferrous sulfate 325 mg (65 mg 325 mg PO DAILY 08/10/25 08/30/25 History iron) tablet (Feosol) vitamin B12 500 mcg-folic acid 400 1 tablet PO DAILY 08/10/25 08/30/25 History mcg tablet simvastatin 20 mg tablet (Zocor) 20 mg PO HS #90 tabs 08/19/25 08/30/25 Rx terbinafine HCl 1 % topical cream 1 applic topical BID #30 grams 08/27/25 08/30/25 Rx (Lamisil AT) pregabalin 100 mg capsule (Lyrica) 100 mg PO Q8H 90 days #270 caps 08/28/25 08/30/25 Rx terbinafine HCl 250 mg tablet 250 mg PO DAILY #30 tabs 08/28/25 08/30/25 Rx tamsulosin 0.4 mg capsule 0.4 mg PO DAILY 08/30/25 08/31/25 History Allergies Allergy/AdvReac Type Severity Reaction Status Date / Time escitalopram Allergy Unknown Asthma Verified 08/30/25 09:31 sildenafil Allergy Unknown Hypotension Verified 08/30/25 09:31 Penicillins AdvReac Mild Diarrhea Verified 08/30/25 09:31 amoxicillin AdvReac Unknown Diarrhea Verified 08/30/25 09:31 ciprofloxacin AdvReac Unknown Diarrhea Verified 08/30/25 09:31 gemfibrozil AdvReac Unknown myalgias Verified 08/30/25 09:31 lactase AdvReac Unknown Nausea Verified 08/30/25 09:31 Vital Signs Vital Signs - 24 hr 09/02/25 16:00 09/02/25 20:00 09/02/25 20:00 Temperature 36.0 C L Pulse Rate 106 H 112 H 112 H Respiratory Rate 20 16 16 Blood Pressure 99/43 L Pulse Oximetry 100 91 Oxygen Delivery Nasal Cannula Oxygen Flow Rate 2 Fraction of Inspired Oxygen 09/02/25 20:00 09/02/25 20:05 09/02/25 21:00 Temperature 36.4 C Pulse Rate 118 H 112 H Respiratory Rate 16 16 Blood Pressure 95/53 L Pulse Oximetry 93 93 Oxygen Delivery Nasal Cannula Oxygen Flow Rate 2 Fraction of Inspired Oxygen 09/03/25 00:58 09/03/25 01:00 09/03/25 01:13 Temperature 35.9 C L Pulse Rate 114 H 100 Respiratory Rate 20 16 Blood Pressure 101/48 L 100/65 Pulse Oximetry 100 82 L Oxygen Delivery Non-Rebreather Mask Oxygen Flow Rate 15 Fraction of Inspired Oxygen 09/03/25 01:20 09/03/25 02:00 09/03/25 02:11 Temperature 36.3 C L Pulse Rate 110 H 107 H 100 Respiratory Rate 16 28 H 26 H Blood Pressure 99/64 L Pulse Oximetry 97 93 Oxygen Delivery High Flow Therapy with Na Oxygen Flow Rate 50 Fraction of Inspired Oxygen 50 09/03/25 03:21 09/03/25 03:23 09/03/25 04:00 Temperature 36.4 C L Pulse Rate 104 H Respiratory Rate 26 H Blood Pressure 93/43 L 93/43 L Pulse Oximetry 93 100 Oxygen Delivery Non-Rebreather Mask Oxygen Flow Rate 15 Fraction of Inspired Oxygen 09/03/25 04:00 09/03/25 04:00 09/03/25 04:15 Temperature Pulse Rate 105 H 104 H 104 H Respiratory Rate 21 H Blood Pressure 95/49 L 90/50 L Pulse Oximetry 100 Oxygen Delivery Oxygen Flow Rate Fraction of Inspired Oxygen 09/03/25 04:15 09/03/25 04:30 09/03/25 04:30 Temperature Pulse Rate 103 H 112 H 111 H Respiratory Rate 14 14 Blood Pressure 90/50 L 84/47 L Pulse Oximetry 100 100 100 Oxygen Delivery Mechanical Ventilation Oxygen Flow Rate Fraction of Inspired Oxygen 100 09/03/25 04:31 09/03/25 04:45 09/03/25 04:50 Temperature Pulse Rate 111 H 103 H Respiratory Rate 18 Blood Pressure 84/47 L 115/51 L Pulse Oximetry 100 Oxygen Delivery Mechanical Ventilation Oxygen Flow Rate Fraction of Inspired Oxygen 35 09/03/25 05:00 09/03/25 05:00 09/03/25 05:00 Temperature Pulse Rate 110 H 110 H Respiratory Rate 18 Blood Pressure 124/61 124/61 Pulse Oximetry 100 Oxygen Delivery Mechanical Ventilation Oxygen Flow Rate Fraction of Inspired Oxygen 09/03/25 05:00 09/03/25 05:05 09/03/25 05:09 Temperature Pulse Rate 111 H 114 H Respiratory Rate 10 L 0 L Blood Pressure 120/63 105/81 Pulse Oximetry 100 100 Oxygen Delivery Oxygen Flow Rate Fraction of Inspired Oxygen 30 09/03/25 05:10 09/03/25 05:12 09/03/25 05:15 Temperature Pulse Rate 113 H 111 H 112 H Respiratory Rate 18 Blood Pressure 115/54 L 108/49 L 101/47 L Pulse Oximetry 100 100 Oxygen Delivery Oxygen Flow Rate Fraction of Inspired Oxygen 09/03/25 05:16 09/03/25 05:18 09/03/25 05:20 Temperature Pulse Rate 110 H 111 H 108 H Respiratory Rate 18 18 18 Blood Pressure 101/51 L 103/49 L 99/48 L Pulse Oximetry 100 100 100 Oxygen Delivery Oxygen Flow Rate Fraction of Inspired Oxygen 09/03/25 05:22 09/03/25 05:24 09/03/25 05:26 Temperature Pulse Rate 108 H 106 H 110 H Respiratory Rate 18 18 18 Blood Pressure 94/45 L 94/46 L 104/46 L Pulse Oximetry 100 100 100 Oxygen Delivery Oxygen Flow Rate Fraction of Inspired Oxygen 09/03/25 05:29 09/03/25 05:30 09/03/25 05:37 Temperature Pulse Rate 106 H 97 104 H Respiratory Rate 18 18 Blood Pressure 85/42 L 86/45 L Pulse Oximetry 100 100 100 Oxygen Delivery Mechanical Ventilation Oxygen Flow Rate Fraction of Inspired Oxygen 30 09/03/25 05:41 09/03/25 05:42 09/03/25 05:44 Temperature Pulse Rate 103 H 103 H 103 H Respiratory Rate 18 18 18 Blood Pressure 95/44 L 97/45 L 107/47 L Pulse Oximetry 100 100 100 Oxygen Delivery Oxygen Flow Rate Fraction of Inspired Oxygen 09/03/25 05:46 09/03/25 05:48 09/03/25 05:55 Temperature Pulse Rate 103 H 103 H 103 H Respiratory Rate 18 18 14 Blood Pressure 97/46 L 98/49 L 104/44 L Pulse Oximetry 100 100 100 Oxygen Delivery Oxygen Flow Rate Fraction of Inspired Oxygen 09/03/25 05:57 09/03/25 05:59 09/03/25 06:00 Temperature Pulse Rate 100 98 98 Respiratory Rate 18 18 Blood Pressure 106/46 L 99/42 L 104/40 L Pulse Oximetry 100 100 Oxygen Delivery Oxygen Flow Rate Fraction of Inspired Oxygen 09/03/25 06:00 09/03/25 06:01 09/03/25 06:03 Temperature Pulse Rate 98 99 96 Respiratory Rate 18 18 Blood Pressure 104/40 L 95/40 L Pulse Oximetry 100 100 Oxygen Delivery Oxygen Flow Rate Fraction of Inspired Oxygen 09/03/25 06:05 09/03/25 06:07 09/03/25 06:09 Temperature Pulse Rate 96 95 96 Respiratory Rate 18 18 18 Blood Pressure 93/41 L 100/54 L 110/50 L Pulse Oximetry 100 100 Oxygen Delivery Oxygen Flow Rate Fraction of Inspired Oxygen 09/03/25 06:11 09/03/25 06:13 09/03/25 06:15 Temperature Pulse Rate 96 96 95 Respiratory Rate 18 18 18 Blood Pressure 114/59 L 112/60 100/52 L Pulse Oximetry 100 100 100 Oxygen Delivery Oxygen Flow Rate Fraction of Inspired Oxygen 09/03/25 06:17 09/03/25 06:19 09/03/25 06:21 Temperature Pulse Rate 96 100 98 Respiratory Rate 18 18 18 Blood Pressure 103/55 L 114/60 102/52 L Pulse Oximetry 100 Oxygen Delivery Oxygen Flow Rate Fraction of Inspired Oxygen 09/03/25 06:23 09/03/25 06:26 09/03/25 06:30 Temperature 33.7 C L Pulse Rate 96 94 93 Respiratory Rate 18 18 18 Blood Pressure 93/54 L 90/46 L 83/45 L Pulse Oximetry 100 100 100 Oxygen Delivery Oxygen Flow Rate Fraction of Inspired Oxygen 09/03/25 06:31 09/03/25 06:45 09/03/25 06:45 Temperature 33.7 C L Pulse Rate 94 90 Respiratory Rate 18 Blood Pressure 85/49 L 95/45 L Pulse Oximetry 100 Oxygen Delivery Oxygen Flow Rate Fraction of Inspired Oxygen 09/03/25 06:46 09/03/25 07:00 09/03/25 07:01 Temperature 33.7 C L Pulse Rate 90 88 Respiratory Rate 18 18 Blood Pressure 95/45 L 81/44 L Pulse Oximetry 100 100 Oxygen Delivery Oxygen Flow Rate Fraction of Inspired Oxygen 09/03/25 07:16 09/03/25 07:30 09/03/25 08:00 Temperature Pulse Rate 85 85 94 Respiratory Rate 6 L 18 18 Blood Pressure 99/48 L Pulse Oximetry 100 100 Oxygen Delivery Mechanical Ventilation Oxygen Flow Rate Fraction of Inspired Oxygen 30 09/03/25 08:00 09/03/25 08:00 09/03/25 08:04 Temperature Pulse Rate 90 90 Respiratory Rate 18 Blood Pressure 98/56 L 98/56 L Pulse Oximetry 100 100 Oxygen Delivery Mechanical Ventilation Oxygen Flow Rate Fraction of Inspired Oxygen 09/03/25 08:06 09/03/25 08:25 09/03/25 08:34 Temperature Pulse Rate 87 88 Respiratory Rate 20 Blood Pressure Pulse Oximetry 100 Oxygen Delivery Mechanical Ventilation Oxygen Flow Rate Fraction of Inspired Oxygen 30 30 09/03/25 08:46 09/03/25 09:00 09/03/25 10:00 Temperature 34.7 C L Pulse Rate 94 94 103 H Respiratory Rate 21 H 22 H Blood Pressure 94/50 L 93/47 L Pulse Oximetry 100 Oxygen Delivery Oxygen Flow Rate Fraction of Inspired Oxygen 09/03/25 10:00 09/03/25 10:00 09/03/25 10:19 Temperature 35.4 C L Pulse Rate 105 H 105 H 105 H Respiratory Rate 19 Blood Pressure 93/47 L 102/50 L Pulse Oximetry 100 Oxygen Delivery Oxygen Flow Rate Fraction of Inspired Oxygen 09/03/25 10:41 09/03/25 10:48 09/03/25 10:57 Temperature 36.0 C L 36.3 C L Pulse Rate 105 H 103 H 106 H Respiratory Rate 18 18 Blood Pressure 93/47 L 98/47 L 102/49 L Pulse Oximetry 100 100 Oxygen Delivery Oxygen Flow Rate Fraction of Inspired Oxygen 09/03/25 11:00 09/03/25 11:10 09/03/25 11:57 Temperature 36.3 C L 37.1 C Pulse Rate 108 H 106 H 108 H Respiratory Rate 10 L 18 Blood Pressure 100/51 L 111/54 L Pulse Oximetry 100 100 100 Oxygen Delivery Mechanical Ventilation Oxygen Flow Rate Fraction of Inspired Oxygen 30 09/03/25 11:59 09/03/25 12:00 09/03/25 12:00 Temperature 37.2 C Pulse Rate 109 H Respiratory Rate 18 Blood Pressure 107/54 L Pulse Oximetry 100 Oxygen Delivery Mechanical Ventilation Oxygen Flow Rate Fraction of Inspired Oxygen 30 09/03/25 12:00 09/03/25 12:03 09/03/25 12:57 Temperature 37.6 C Pulse Rate 105 H 105 H 105 H Respiratory Rate 18 Blood Pressure 107/54 L 112/55 L Pulse Oximetry 100 Oxygen Delivery Oxygen Flow Rate Fraction of Inspired Oxygen 09/03/25 13:00 09/03/25 13:00 09/03/25 13:04 Temperature 37.6 C Pulse Rate 112 H 111 H 116 H Respiratory Rate 18 18 Blood Pressure 124/59 L 97/50 L Pulse Oximetry 100 Oxygen Delivery Oxygen Flow Rate Fraction of Inspired Oxygen 09/03/25 13:04 09/03/25 13:15 09/03/25 13:21 Temperature Pulse Rate 116 H 111 H 115 H Respiratory Rate 18 18 Blood Pressure 97/50 L Pulse Oximetry Oxygen Delivery Oxygen Flow Rate Fraction of Inspired Oxygen 09/03/25 13:30 09/03/25 13:45 09/03/25 13:50 Temperature 37.7 C H Pulse Rate 103 H 100 100 Respiratory Rate 18 18 18 Blood Pressure 115/57 L Pulse Oximetry 100 Oxygen Delivery Oxygen Flow Rate Fraction of Inspired Oxygen 09/03/25 13:54 09/03/25 13:57 09/03/25 13:59 Temperature Pulse Rate 99 101 H 102 H Respiratory Rate 18 Blood Pressure Pulse Oximetry 100 Oxygen Delivery Mechanical Ventilation Oxygen Flow Rate Fraction of Inspired Oxygen 30 09/03/25 14:00 09/03/25 14:03 Temperature Pulse Rate 103 H 104 H Respiratory Rate 18 Blood Pressure 109/53 L 109/53 L Pulse Oximetry 99 Oxygen Delivery Oxygen Flow Rate Fraction of Inspired Oxygen Exam Narrative: GEN: not responsive 75 year old man on the vent, CMV mode, peep of 5, 30% FiO2, patient is hypothermic on a Manuel Hugger. Pressor: Levophed at 15 mcg/min, no sedation. Scalp on left frontal area has healing skin wound, dry skin, ecchymosis around right orbit HEENT: his lower eyelids are droopy. Symmetrical face; oral membranes moist. 7.5 ETT. NECK: Trachea is midline CHEST: scattered rhonchi; decreased breath sounds right base. No wheezes. CV: Regular S1S2 no m/g/r Extremities : no clubbing, cyanosis, or edema. No calf tenderness. PSYCH: not responding, does not have sedation infusing Results Laboratory Findings 09/03/25 14:54 09/03/25 05:15 ABG, PT/INR, D-dimer: ABG ABG pH 7.321 (7.350-7.450) L 09/03/25 05:30 ABG pCO2 43.1 mmHg (35.0-45.0) 09/03/25 05:30 ABG pO2 133.0 mmHg (80.0-100.0) H 09/03/25 05:30 ABG O2 Saturation 98.4 % (95.0-100.0) 09/03/25 05:30 PT/INR, D-dimer PT 18.8 Seconds (11.1-14.7) H 09/03/25 08:24 INR 1.6 09/03/25 08:24 D-Dimer 2.25 ug/mL (<0.48) H 09/03/25 08:24 Abnormal lab findings: Abnormal Labs 08/30/25 08/30/25 08/31/25 09:40 21:54 04:06 WBC 0.7 L* RBC 2.53 L Hgb 7.9 L Hct 23.3 L MCHC RDW 17.1 H Plt Count 112 L MPV 11.0 H Immature Gran % (Auto) 1.4 H Lymph % (Auto) [place] % (Auto) 14.1 H Baso % (Auto) 2.8 H Lymph # (Auto) 0.19 L [place] # (Auto) Abs Immat Gran (auto) Absolute Neuts (auto) 0.4 L* Absolute Nucleated RBC Neutrophils % (Manual) Lymphocytes % (Manual) Basophils % (Manual) Nucleated RBC % Abs Lymphs (Manual) Abs Basophils (Manual) PT APTT D-Dimer ABG pH ABG pCO2 ABG pO2 ABG HCO3 ABG O2 Content Total Hemoglobin Sodium 129 L Anion Gap 3 L BUN 23 H Creatinine 0.60 L Glucose POC Capillary Glucose Calcium 7.7 L Iron TIBC Ferritin Total Bilirubin 1.6 H Ammonia Lactate Dehydrogenase Troponin I C-Reactive Protein 18.6 H NT-Pro-B Natriuret Pep Total Protein 4.6 L Albumin 2.5 L Vitamin B12 994.0 H Urine Protein 1+ H Urine Ketones Trace H Urine Bilirubin 1+ H Urine RBC 3-5 H Pleural Neutrophils Crossmatch 08/31/25 09/01/25 09/02/25 04:09 04:21 06:36 WBC 0.8 L* 1.5 L* RBC 2.56 L 2.27 L Hgb 8.0 L 7.1 L Hct 23.8 L 21.8 L MCHC RDW 17.3 H 17.5 H Plt Count 120 L 135 L MPV 11.1 H 10.8 H Immature Gran % (Auto) 1.2 H 5.4 H 3.8 H Lymph % (Auto) 7.1 L [place] % (Auto) 14.8 H 21.6 H 13.9 H Baso % (Auto) 3.7 H 4.1 H 2.2 H Lymph # (Auto) 0.24 L 0.33 L 0.36 L [place] # (Auto) 0.7 H Abs Immat Gran (auto) 0.08 H 0.19 H Absolute Neuts (auto) 0.4 L* 0.7 L Absolute Nucleated RBC 0.030 H Neutrophils % (Manual) Lymphocytes % (Manual) Basophils % (Manual) Nucleated RBC % 0.6 H Abs Lymphs (Manual) Abs Basophils (Manual) PT APTT D-Dimer ABG pH ABG pCO2 ABG pO2 ABG HCO3 ABG O2 Content Total Hemoglobin Sodium 130 L 132 L Anion Gap 2 L BUN 22 H Creatinine 0.51 L 0.54 L Glucose POC Capillary Glucose Calcium 7.4 L 7.3 L Iron 43 L TIBC 199 L Ferritin > 2000.00 H Total Bilirubin Ammonia Lactate Dehydrogenase Troponin I C-Reactive Protein NT-Pro-B Natriuret Pep Total Protein 4.7 L 4.7 L Albumin 2.3 L 2.5 L Vitamin B12 Urine Protein Urine Ketones Urine Bilirubin Urine RBC Pleural Neutrophils Crossmatch 09/02/25 09/03/25 09/03/25 06:39 01:01 01:05 WBC RBC 2.29 L Hgb 7.1 L Hct 22.0 L MCHC RDW 18.4 H Plt Count 140 L MPV 10.6 H Immature Gran % (Auto) Lymph % (Auto) [place] % (Auto) Baso % (Auto) Lymph # (Auto) [place] # (Auto) Abs Immat Gran (auto) Absolute Neuts (auto) Absolute Nucleated RBC Neutrophils % (Manual) Lymphocytes % (Manual) Basophils % (Manual) Nucleated RBC % Abs Lymphs (Manual) Abs Basophils (Manual) PT APTT D-Dimer ABG pH 7.237 L* ABG pCO2 56.3 H ABG pO2 113.2 H ABG HCO3 ABG O2 Content 11.7 L Total Hemoglobin 8.5 L Sodium 135 L Anion Gap 3 L BUN Creatinine 0.55 L Glucose POC Capillary Glucose 140 H Calcium 7.4 L Iron TIBC Ferritin Total Bilirubin Ammonia Lactate Dehydrogenase Troponin I C-Reactive Protein NT-Pro-B Natriuret Pep 1170 H Total Protein 4.5 L Albumin 2.3 L Vitamin B12 Urine Protein Urine Ketones Urine Bilirubin Urine RBC Pleural Neutrophils Crossmatch 09/03/25 09/03/25 09/03/25 01:34 05:15 05:30 WBC RBC 2.47 L 2.43 L Hgb 7.8 L 7.5 L Hct 23.6 L 23.5 L MCHC 31.9 L RDW 19.2 H 19.4 H Plt Count MPV 10.8 H 11.0 H Immature Gran % (Auto) Lymph % (Auto) [place] % (Auto) Baso % (Auto) Lymph # (Auto) [place] # (Auto) Abs Immat Gran (auto) Absolute Neuts (auto) Absolute Nucleated RBC Neutrophils % (Manual) 78 H Lymphocytes % (Manual) 6.0 L Basophils % (Manual) 2 H Nucleated RBC % Abs Lymphs (Manual) 0.47 L Abs Basophils (Manual) 0.15 H PT APTT D-Dimer ABG pH 7.321 L ABG pCO2 ABG pO2 133.0 H ABG HCO3 21.8 L ABG O2 Content 14.1 L Total Hemoglobin 10.1 L Sodium 135 L Anion Gap 1 L BUN Creatinine 0.47 L 0.50 L Glucose 120 H 134 H POC Capillary Glucose Calcium 8.0 L 7.8 L Iron TIBC Ferritin Total Bilirubin Ammonia 33 H Lactate Dehydrogenase 357 H Troponin I 0.052 H* 0.085 H* D C-Reactive Protein NT-Pro-B Natriuret Pep 1280 H Total Protein 4.7 L 4.8 L Albumin 2.5 L 2.6 L Vitamin B12 Urine Protein Urine Ketones Urine Bilirubin Urine RBC Pleural Neutrophils Crossmatch 09/03/25 09/03/25 09/03/25 05:45 08:24 08:42 WBC RBC 2.21 L Hgb 6.9 L* Hct 21.1 L MCHC RDW 19.0 H Plt Count MPV 10.7 H Immature Gran % (Auto) Lymph % (Auto) [place] % (Auto) Baso % (Auto) Lymph # (Auto) [place] # (Auto) Abs Immat Gran (auto) Absolute Neuts (auto) Absolute Nucleated RBC Neutrophils % (Manual) Lymphocytes % (Manual) Basophils % (Manual) Nucleated RBC % Abs Lymphs (Manual) Abs Basophils (Manual) PT 18.8 H APTT > 200.0 H* D-Dimer 2.25 H ABG pH ABG pCO2 ABG pO2 ABG HCO3 ABG O2 Content Total Hemoglobin Sodium Anion Gap BUN Creatinine Glucose POC Capillary Glucose Calcium Iron TIBC Ferritin Total Bilirubin Ammonia Lactate Dehydrogenase Troponin I C-Reactive Protein NT-Pro-B Natriuret Pep Total Protein Albumin Vitamin B12 Urine Protein Urine Ketones Urine Bilirubin Urine RBC Pleural Neutrophils 54 H Crossmatch See Detail 09/03/25 09/03/25 11:47 13:02 WBC RBC Hgb Hct MCHC RDW Plt Count MPV Immature Gran % (Auto) Lymph % (Auto) [place] % (Auto) Baso % (Auto) Lymph # (Auto) [place] # (Auto) Abs Immat Gran (auto) Absolute Neuts (auto) Absolute Nucleated RBC Neutrophils % (Manual) Lymphocytes % (Manual) Basophils % (Manual) Nucleated RBC % Abs Lymphs (Manual) Abs Basophils (Manual) PT APTT D-Dimer ABG pH ABG pCO2 ABG pO2 ABG HCO3 ABG O2 Content Total Hemoglobin Sodium Anion Gap BUN Creatinine Glucose POC Capillary Glucose 215 H Calcium Iron TIBC Ferritin Total Bilirubin Ammonia Lactate Dehydrogenase Troponin I 0.142 H* D C-Reactive Protein NT-Pro-B Natriuret Pep Total Protein Albumin Vitamin B12 Urine Protein Urine Ketones Urine Bilirubin Urine RBC Pleural Neutrophils Crossmatch
[2025-09-03] MEDS: MICAFUNGIN SODIUM 100 MG in SODIUM CHLORIDE 0.9% IV 100 ML IVPB (14:53)
[2025-09-03 15:10] LABS: Hematocrit 23.1 % (42.0-52.0); Hemoglobin 7.6 g/dL (14.0-18.0); Mean Corpuscular HGB Conc 32.9 g/dl (32-36); Mean Corpuscular Hemoglobin 30.9 pg (26-34); Mean Corpuscular Volume 93.9 fl (80-100); Platelet Count Result 180 k/mm3 (150-375); Red Blood Count 2.46 M/mm3 (4.6-6.20); White Blood Count 11.0 K/mm3 (4.5-10.0)
--- NOTE | 2025-09-03 16:54 | WPDINFPN2 ---
Progress Note: A&P Assessment and Plan (1) Fever and neutropenia: Code(s): D70.9 - Neutropenia, unspecified; R50.81 - Fever presenting with conditions classified elsewhere Status: Acute (2) Pneumonia: Code(s): J18.9 - Pneumonia, unspecified organism Status: Acute (3) Stomatitis and mucositis: Code(s): K12.1 - Other forms of stomatitis; K12.30 - Oral mucositis (ulcerative), unspecified Status: Acute (4) Candidal balano-posthitis: Code(s): B37.49 - Other urogenital candidiasis Status: Acute (5) Septic shock: Code(s): A41.9 - Sepsis, unspecified organism; R65.21 - Severe sepsis with septic shock Status: Acute (6) Encephalopathy: Code(s): G93.40 - Encephalopathy, unspecified Status: Acute (7) Metastatic malignant neoplasm to prostate: Code(s): C79.82 - Secondary malignant neoplasm of genital organs Status: Acute Plan # Post chemotherapy neutropenia without fever. -- neutropenia now resolved. # original admission withPossible left lung base pneumonia. -- originally placed on cefepime, azithromycin, and vancomycin. # Development of severe sepsis with shock. -- now associated with progressive respiratory disease including pleural effusions, pleural atelectasis, and bilateral pneumonitis. -- no longer neutropenic but the above may have been developing while initially neutropenic. -- pleural fluid cultures and repeat blood cultures are pending. Bronchoscopy is being considered. -- antibiotics have been broadened to date. # Post chemotherapy mucositis. # Balanitis. -- receiving fluconazole and local care. # Metastatic prostate cancer. Plan: -- continue broadened antibiotics including meropenem along with vancomycin. -- empirically broaden antifungal therapy by changing fluconazole to micafungin. -- await original and repeat blood cultures as well as pleural fluid culture. -- discussed with Dr. Best as well as patient's son and daughter. -- prognosis is guarded. Further recommendations to follow. Patient was seen via video telehealth consultation with the assistance of staff. Chart, data, and patient independently reviewed. Patient was located at [facility] while I was located in my [place] office. Received verbal consent from patient. Subjective Date/time seen: 09/03/25 16:54 Interval history: 09/02/2025: Patient seen today with son at bedside. Discussed with son. Afebrile with stable vital signs. Remains on 2 L per nasal cannula. White blood cell count increased to 5.0 with absolute neutrophil count 3.7. Blood cultures remain reported as pending. 09/03/2025: Neutropenia resolved with white blood cell count 8.3; however, Yesterday developed alteration in mental status, hypoxemia, and hypotension. Transferred to ICU and required intubation And pressors. CT performed 09/02 showed development of moderate loculated right pleural effusion and small left pleural effusion, patchy infiltrates bilaterally, mediastinal lymphadenopathy, and T9 changes suggestive of metastases. Follow-up CT performed this morning identified significant decrease in lung volumes with prominent dependent atelectasis including partial collapse of the bilateral lower lobes although superimposed pneumonia could not be excluded, no significant change in the small left and moderate size right pleural effusions, moderate amount of ascites in the upper abdomen, and again suggestion of T9 [id number] metastases. since transferred ICU antibiotics were broadened to include meropenem and vancomycin as well as continued fluconazole. Thoracentesis today described as sticky fluid with 179 white cells, 54 neutrophils, few white blood cells on Gram stain and no organisms.. Review of Systems Review of Systems: ROS unobtainable: Yes unobtainable due to endotracheal tube Exam Narrative: Patient now intubated and continues with pressors. No significant abdominal distention. No evidence of rash. Patient's son and daughter at bedside. Objective Data Vital Signs Vital Signs: Vital Signs - 24 hr 09/02/25 20:00 09/02/25 20:00 09/02/25 20:00 Temperature Pulse Rate 112 H 112 H Respiratory Rate 16 16 Blood Pressure Pulse Oximetry 91 93 Oxygen Delivery Nasal Cannula Nasal Cannula Oxygen Flow Rate 2 2 Fraction of Inspired Oxygen 09/02/25 20:05 09/02/25 21:00 09/03/25 00:58 Temperature 97.6 F Pulse Rate 118 H 112 H 114 H Respiratory Rate 16 16 20 Blood Pressure 95/53 L 101/48 L Pulse Oximetry 93 100 Oxygen Delivery Non-Rebreather Mask Oxygen Flow Rate 15 Fraction of Inspired Oxygen 09/03/25 01:00 09/03/25 01:13 09/03/25 01:20 Temperature 96.6 F L Pulse Rate 100 110 H Respiratory Rate 16 16 Blood Pressure 100/65 Pulse Oximetry 82 L Oxygen Delivery Oxygen Flow Rate Fraction of Inspired Oxygen 09/03/25 02:00 09/03/25 02:11 09/03/25 03:21 Temperature 97.4 F L 97.5 F L Pulse Rate 107 H 100 104 H Respiratory Rate 28 H 26 H 26 H Blood Pressure 99/64 L 93/43 L Pulse Oximetry 97 93 93 Oxygen Delivery High Flow Therapy with Na Oxygen Flow Rate 50 Fraction of Inspired Oxygen 50 09/03/25 03:23 09/03/25 04:00 09/03/25 04:00 Temperature Pulse Rate 105 H Respiratory Rate 21 H Blood Pressure 93/43 L 95/49 L Pulse Oximetry 100 100 Oxygen Delivery Non-Rebreather Mask Oxygen Flow Rate 15 Fraction of Inspired Oxygen 09/03/25 04:00 09/03/25 04:15 09/03/25 04:15 Temperature Pulse Rate 104 H 104 H 103 H Respiratory Rate 14 Blood Pressure 90/50 L 90/50 L Pulse Oximetry 100 Oxygen Delivery Oxygen Flow Rate Fraction of Inspired Oxygen 09/03/25 04:30 09/03/25 04:30 09/03/25 04:31 Temperature Pulse Rate 112 H 111 H 111 H Respiratory Rate 14 Blood Pressure 84/47 L 84/47 L Pulse Oximetry 100 100 Oxygen Delivery Mechanical Ventilation Oxygen Flow Rate Fraction of Inspired Oxygen 100 09/03/25 04:45 09/03/25 04:50 09/03/25 05:00 Temperature Pulse Rate 103 H 110 H Respiratory Rate 18 Blood Pressure 115/51 L 124/61 Pulse Oximetry 100 Oxygen Delivery Mechanical Ventilation Oxygen Flow Rate Fraction of Inspired Oxygen 35 09/03/25 05:00 09/03/25 05:00 09/03/25 05:00 Temperature Pulse Rate 110 H Respiratory Rate 18 Blood Pressure 124/61 Pulse Oximetry 100 Oxygen Delivery Mechanical Ventilation Oxygen Flow Rate Fraction of Inspired Oxygen 30 09/03/25 05:05 09/03/25 05:09 09/03/25 05:10 Temperature Pulse Rate 111 H 114 H 113 H Respiratory Rate 10 L 0 L Blood Pressure 120/63 105/81 115/54 L Pulse Oximetry 100 100 100 Oxygen Delivery Oxygen Flow Rate Fraction of Inspired Oxygen 09/03/25 05:12 09/03/25 05:15 09/03/25 05:16 Temperature Pulse Rate 111 H 112 H 110 H Respiratory Rate 18 18 Blood Pressure 108/49 L 101/47 L 101/51 L Pulse Oximetry 100 100 Oxygen Delivery Oxygen Flow Rate Fraction of Inspired Oxygen 09/03/25 05:18 09/03/25 05:20 09/03/25 05:22 Temperature Pulse Rate 111 H 108 H 108 H Respiratory Rate 18 18 18 Blood Pressure 103/49 L 99/48 L 94/45 L Pulse Oximetry 100 100 100 Oxygen Delivery Oxygen Flow Rate Fraction of Inspired Oxygen 09/03/25 05:24 09/03/25 05:26 09/03/25 05:29 Temperature Pulse Rate 106 H 110 H 106 H Respiratory Rate 18 18 18 Blood Pressure 94/46 L 104/46 L 85/42 L Pulse Oximetry 100 100 100 Oxygen Delivery Oxygen Flow Rate Fraction of Inspired Oxygen 09/03/25 05:30 09/03/25 05:37 09/03/25 05:41 Temperature Pulse Rate 97 104 H 103 H Respiratory Rate 18 18 Blood Pressure 86/45 L 95/44 L Pulse Oximetry 100 100 100 Oxygen Delivery Mechanical Ventilation Oxygen Flow Rate Fraction of Inspired Oxygen 30 09/03/25 05:42 09/03/25 05:44 09/03/25 05:46 Temperature Pulse Rate 103 H 103 H 103 H Respiratory Rate 18 18 18 Blood Pressure 97/45 L 107/47 L 97/46 L Pulse Oximetry 100 100 100 Oxygen Delivery Oxygen Flow Rate Fraction of Inspired Oxygen 09/03/25 05:48 09/03/25 05:55 09/03/25 05:57 Temperature Pulse Rate 103 H 103 H 100 Respiratory Rate 18 14 18 Blood Pressure 98/49 L 104/44 L 106/46 L Pulse Oximetry 100 100 100 Oxygen Delivery Oxygen Flow Rate Fraction of Inspired Oxygen 09/03/25 05:59 09/03/25 06:00 09/03/25 06:00 Temperature Pulse Rate 98 98 98 Respiratory Rate 18 Blood Pressure 99/42 L 104/40 L Pulse Oximetry 100 Oxygen Delivery Oxygen Flow Rate Fraction of Inspired Oxygen 09/03/25 06:01 09/03/25 06:03 09/03/25 06:05 Temperature Pulse Rate 99 96 96 Respiratory Rate 18 18 18 Blood Pressure 104/40 L 95/40 L 93/41 L Pulse Oximetry 100 100 100 Oxygen Delivery Oxygen Flow Rate Fraction of Inspired Oxygen 09/03/25 06:07 09/03/25 06:09 09/03/25 06:11 Temperature Pulse Rate 95 96 96 Respiratory Rate 18 18 18 Blood Pressure 100/54 L 110/50 L 114/59 L Pulse Oximetry 100 100 Oxygen Delivery Oxygen Flow Rate Fraction of Inspired Oxygen 09/03/25 06:13 09/03/25 06:15 09/03/25 06:17 Temperature Pulse Rate 96 95 96 Respiratory Rate 18 18 18 Blood Pressure 112/60 100/52 L 103/55 L Pulse Oximetry 100 100 100 Oxygen Delivery Oxygen Flow Rate Fraction of Inspired Oxygen 09/03/25 06:19 09/03/25 06:21 09/03/25 06:23 Temperature Pulse Rate 100 98 96 Respiratory Rate 18 18 18 Blood Pressure 114/60 102/52 L 93/54 L Pulse Oximetry 100 Oxygen Delivery Oxygen Flow Rate Fraction of Inspired Oxygen 09/03/25 06:26 09/03/25 06:30 09/03/25 06:31 Temperature 92.6 F L Pulse Rate 94 93 94 Respiratory Rate 18 18 18 Blood Pressure 90/46 L 83/45 L 85/49 L Pulse Oximetry 100 100 100 Oxygen Delivery Oxygen Flow Rate Fraction of Inspired Oxygen 09/03/25 06:45 09/03/25 06:45 09/03/25 06:46 Temperature 92.6 F L Pulse Rate 90 90 Respiratory Rate 18 Blood Pressure 95/45 L 95/45 L Pulse Oximetry 100 Oxygen Delivery Oxygen Flow Rate Fraction of Inspired Oxygen 09/03/25 07:00 09/03/25 07:01 09/03/25 07:16 Temperature 92.6 F L Pulse Rate 88 85 Respiratory Rate 18 6 L Blood Pressure 81/44 L 99/48 L Pulse Oximetry 100 100 Oxygen Delivery Oxygen Flow Rate Fraction of Inspired Oxygen 09/03/25 07:30 09/03/25 08:00 09/03/25 08:00 Temperature Pulse Rate 85 94 90 Respiratory Rate 18 18 18 Blood Pressure 98/56 L Pulse Oximetry 100 100 Oxygen Delivery Mechanical Ventilation Oxygen Flow Rate Fraction of Inspired Oxygen 30 09/03/25 08:00 09/03/25 08:04 09/03/25 08:06 Temperature Pulse Rate 90 Respiratory Rate Blood Pressure 98/56 L Pulse Oximetry 100 Oxygen Delivery Mechanical Ventilation Oxygen Flow Rate Fraction of Inspired Oxygen 30 09/03/25 08:25 09/03/25 08:34 09/03/25 08:46 Temperature Pulse Rate 87 88 94 Respiratory Rate 20 21 H Blood Pressure Pulse Oximetry 100 Oxygen Delivery Mechanical Ventilation Oxygen Flow Rate Fraction of Inspired Oxygen 30 09/03/25 09:00 09/03/25 10:00 09/03/25 10:00 Temperature 94.5 F L 95.7 F L Pulse Rate 94 103 H 105 H Respiratory Rate 22 H 19 Blood Pressure 94/50 L 93/47 L 93/47 L Pulse Oximetry 100 100 Oxygen Delivery Oxygen Flow Rate Fraction of Inspired Oxygen 09/03/25 10:00 09/03/25 10:19 09/03/25 10:41 Temperature 96.8 F L Pulse Rate 105 H 105 H 105 H Respiratory Rate 18 Blood Pressure 102/50 L 93/47 L Pulse Oximetry 100 Oxygen Delivery Oxygen Flow Rate Fraction of Inspired Oxygen 09/03/25 10:48 09/03/25 10:57 09/03/25 11:00 Temperature 97.3 F L 97.3 F L Pulse Rate 103 H 106 H 108 H Respiratory Rate 18 10 L Blood Pressure 98/47 L 102/49 L 100/51 L Pulse Oximetry 100 100 Oxygen Delivery Oxygen Flow Rate Fraction of Inspired Oxygen 09/03/25 11:10 09/03/25 11:57 09/03/25 11:59 Temperature 98.8 F 98.9 F Pulse Rate 106 H 108 H 109 H Respiratory Rate 18 18 Blood Pressure 111/54 L 107/54 L Pulse Oximetry 100 100 100 Oxygen Delivery Mechanical Ventilation Oxygen Flow Rate Fraction of Inspired Oxygen 30 09/03/25 12:00 09/03/25 12:00 09/03/25 12:00 Temperature Pulse Rate 105 H Respiratory Rate Blood Pressure Pulse Oximetry Oxygen Delivery Mechanical Ventilation Oxygen Flow Rate Fraction of Inspired Oxygen 30 09/03/25 12:03 09/03/25 12:57 09/03/25 13:00 Temperature 99.6 F 99.6 F Pulse Rate 105 H 105 H 112 H Respiratory Rate 18 18 Blood Pressure 107/54 L 112/55 L 124/59 L Pulse Oximetry 100 100 Oxygen Delivery Oxygen Flow Rate Fraction of Inspired Oxygen 09/03/25 13:00 09/03/25 13:04 09/03/25 13:04 Temperature Pulse Rate 111 H 116 H 116 H Respiratory Rate 18 Blood Pressure 97/50 L 97/50 L Pulse Oximetry Oxygen Delivery Oxygen Flow Rate Fraction of Inspired Oxygen 09/03/25 13:15 09/03/25 13:21 09/03/25 13:30 Temperature Pulse Rate 111 H 115 H 103 H Respiratory Rate 18 18 18 Blood Pressure Pulse Oximetry Oxygen Delivery Oxygen Flow Rate Fraction of Inspired Oxygen 09/03/25 13:45 09/03/25 13:50 09/03/25 13:54 Temperature 99.8 F H Pulse Rate 100 100 99 Respiratory Rate 18 18 Blood Pressure 115/57 L Pulse Oximetry 100 Oxygen Delivery Oxygen Flow Rate Fraction of Inspired Oxygen 09/03/25 13:57 09/03/25 13:59 09/03/25 14:00 Temperature Pulse Rate 101 H 102 H 103 H Respiratory Rate 18 18 Blood Pressure 109/53 L Pulse Oximetry 100 99 Oxygen Delivery Mechanical Ventilation Oxygen Flow Rate Fraction of Inspired Oxygen 30 09/03/25 14:00 09/03/25 14:00 09/03/25 14:03 Temperature Pulse Rate 101 H 101 H 104 H Respiratory Rate 18 18 Blood Pressure 109/53 L Pulse Oximetry Oxygen Delivery Oxygen Flow Rate Fraction of Inspired Oxygen 09/03/25 14:59 09/03/25 15:00 09/03/25 16:00 Temperature 99.8 F H Pulse Rate 98 103 H 94 Respiratory Rate 18 Blood Pressure 115/58 L 113/50 L 110/52 L Pulse Oximetry 98 Oxygen Delivery Oxygen Flow Rate Fraction of Inspired Oxygen 09/03/25 16:00 09/03/25 16:00 09/03/25 16:00 Temperature 99.6 F Pulse Rate 92 Respiratory Rate 18 Blood Pressure 110/52 L Pulse Oximetry 100 100 Oxygen Delivery Mechanical Ventilation Oxygen Flow Rate Fraction of Inspired Oxygen 30 09/03/25 16:00 09/03/25 16:06 09/03/25 16:06 Temperature Pulse Rate 92 92 92 Respiratory Rate 18 18 Blood Pressure Pulse Oximetry Oxygen Delivery Oxygen Flow Rate Fraction of Inspired Oxygen Intake/Output Intake/Output: Intake & Output 08/31/25 09/01/25 09/02/25 09/03/25 23:59 23:59 23:59 23:59 Intake Total 4140 2812 590 812.3 Output Total 1050 551 500 200 Balance 3090 2261 90 612.3 Meds/Results Medications: Active Medications Generic Name Dose Route Start Last Admin Trade Name Freq PRN Reason Stop Dose Admin Acetaminophen 650 mg 08/30/25 10:58 Acetaminophen 325 Mg Tablet PO Q4H PRN Mild Pain (1-3) or Fever Albuterol/Ipratropium 3 ml 09/01/25 08:55 09/03/25 13:57 Ipratropium 0.5 Mg/Albuterol Sulfate 2.5 Mg (Base) Ampul.Neb 3 Ml INHALATION 3 ml Q6HRT DARIEN Administration Lidocaine HCl 30 ml/ Al Hydrox 0 ml 08/30/25 17:00 09/03/25 07:00 /Mg Hydrox/Simethicone 30 ml/ PO Not Given Diphenhydramine HCl 75 mg Q4HWA DARIEN On Hold: 09/03/25 07:00 Dextrose 12.5 gm 09/03/25 10:06 Dextrose 50% 25 Gm/50 Ml Syringe IV PUSH PRN PRN Hypoglycemia Protocol Fenofibrate 145 mg 09/01/25 09:00 09/03/25 08:21 Fenofibrate 145 Mg Tablet PO Not Given QAM DARIEN Glucagon 1 mg 09/03/25 10:06 Glucagon For Inj 1 Mg Vial IM PRN PRN Hypoglycemia Protocol Glucose 15 gm 09/03/25 10:06 Glucose Oral Gel 15 Gm Of Glucse In 37.5 Gm Tube PO PRN PRN Hypoglycemia Protocol Heparin Sodium (Beef Lung) 50 units 09/03/25 09:00 09/03/25 08:22 Heparin Flush 50 Units/5 Ml Syringe IV PUSH Not Given QAM DARIEN Heparin Sodium (Beef Lung) 50 units 09/03/25 07:03 Heparin Flush 50 Units/5 Ml Syringe IV PUSH PRN PRN after intermittent infusion Heparin Sodium (Beef Lung) 50 units 09/03/25 07:03 Heparin Flush 50 Units/5 Ml Syringe IV PUSH PRN PRN after blood draws Heparin Sodium (Porcine) 500 units 09/03/25 07:03 Heparin Sodium Lock Flush 500 Units/5 Ml Syringe IV PUSH PRN PRN see comments below Norepinephrine Bitartrate 8 mg in 250 mls @ 28.125 mls/hr 09/03/25 04:20 09/03/25 16:00 Levophed 8 Mg/D5w 250 Ml IV CONT 15 mcg/min .Q8H54M DARIEN 28.13 mls/hr Protocol Titration 15 MCG/MIN Fentanyl Citrate 2,500 mcg in 250 mls @ 10 mls/hr 09/03/25 04:40 09/03/25 16:06 Fentanyl 2,500 Mcg/Ns 250 Ml IV CONT 100 mcg/hr .Q25H DARIEN 10 mls/hr Protocol Titration 100 MCG/HR Vancomycin HCl 1,500 mg in 500 mls @ 250 mls/hr 09/03/25 07:00 09/03/25 07:02 Vancomycin 1,500 Mg/Ns 500 Ml IVPB 250 mls/hr Q12H DARIEN Administration Albumin Human 100 mls @ 60 mls/hr 09/03/25 07:26 09/03/25 12:17 Albutein IVPB 09/04/25 01:39 60 mls/hr Q6HR DARIEN Administration Dextrose 1,000 mls @ 100 mls/hr 09/03/25 10:06 Dextrose 5% 1,000 Ml IVPB PRN PRN Hypoglycemia Protocol Meropenem 1 gm/ Sodium 100 mls @ 200 mls/hr 09/03/25 11:00 09/03/25 11:41 Chloride IVPB 200 mls/hr Q8H DARIEN Administration Midazolam HCl 100 mg in 100 mls @ 1 mls/hr 09/03/25 13:15 09/03/25 16:06 Versed 100 Mg/Ns 100 Ml IV CONT 1 mg/hr .Q72H DARIEN 1 mls/hr Protocol Titration 1 MG/HR Micafungin Sodium 100 mg/ 100 mls @ 100 mls/hr 09/03/25 14:00 09/03/25 14:53 Sodium Chloride IVPB 100 mls/hr Q24H DARIEN Administration Insulin Aspart 2 - 5 units 09/03/25 10:10 09/03/25 16:15 Insulin Aspart (*Bkc) 100 Units/Ml SUB-Q Not Given Q4HR [facility] Protocol Lidocaine HCl 1 applic 08/30/25 20:34 08/31/25 09:34 Lidocaine 4% Soln 50 Ml Btl TOPICAL 1 applic PRN PRN Administration Pain Loratadine 10 mg 08/31/25 21:00 09/03/25 08:22 Loratadine 10 Mg Tablet PO [facility] Succinate 25 mg 08/31/25 13:45 09/02/25 11:31 Metoprolol Succinate Ext Rel 25 Mg Tabcr PO Not Given On Hold: 09/03/25 03:09 QAM [facility] Multi-Ingred Cream/Lotion/Oil/Oint 1 applic 09/03/25 09:00 09/03/25 08:36 Mineral Oil/White Petrolatum Ointment EACH EYE 1 applic Q12HR DARIEN Administration Pantoprazole Sodium 40 mg 09/03/25 21:00 Pantoprazole Sodium Iv 40 Mg Vial IV PUSH Q12HR DARIEN Perflutren Lipid Microsphere 0 ml 09/02/25 13:55 Perflutren Lipid Microspheres 1.5 Ml Vial Diluted To 10 Ml Total Volume IV PUSH 09/05/25 13:55 ONCE PRN adequate visualization Protocol Sodium Chloride 10 ml 09/03/25 14:00 09/03/25 13:15 Central Line Flush IV PUSH 10 ml Q8HR DARIEN Administration Tamsulosin HCl 0.4 mg 09/01/25 09:00 09/03/25 08:22 Tamsulosin Hcl 0.4 Mg Capsule PO Not Given DAILY DARIEN Vitamin D 125 mcg 09/01/25 09:00 09/03/25 08:21 Cholecalciferol (Vitamin D3) 125 Mcg (5,000 Units) Tablet PO Not Given DAILY DARIEN Radiology Results: ITS Impressions Head CT 09/03/25 06:23 IMPRESSION: 1. No acute intracranial findings. Head/Neck CTA 09/03/25 06:30 IMPRESSION: CT HEAD: 1. No acute intracranial findings. CTA NECK: 1. Motion artifact along carotid bulbs. Stenosis or even dissection not excluded. Recommend carotid ultrasound. CTA HEAD: 1. No large vessel arterial occlusive disease or other acute findings. 2. No aneurysms. Chest X-Ray 09/03/25 07:09 IMPRESSION: 1. Large pleural effusions and significant bibasilar atelectasis and/or airspace disease much less evident than on CT hours prior. Chest CT 09/03/25 07:26 IMPRESSION: 1. Significant decrease in lung volumes with prominent dependent atelectasis including partial collapse of the bilateral lower lobes. Superimposed pneumonia not excludable. 2. No significant change in small left and moderate-sized right pleural effusions. 3. Moderate amount of ascites in the upper abdomen. 4. Scattered sclerotic bone lesions consistent with known metastatic prostate cancer and with chronic pathologic fracture at T10. Labs Labs: Laboratory Results - last 24 hr 09/03/25 09/03/25 09/03/25 01:01 01:05 01:34 WBC 7.9 RBC 2.47 L Hgb 7.8 L Hct 23.6 L MCV 95.5 MCH 31.6 MCHC 33.1 RDW 19.2 H Plt Count 162 MPV 10.8 H Immature Gran % (Auto) Not Reportable Neut % (Auto) Not Reportable Lymph % (Auto) Not Reportable [place] % (Auto) Not Reportable Eos % (Auto) Not Reportable Baso % (Auto) Not Reportable Lymph # (Auto) Not Reportable [place] # (Auto) Not Reportable Eos # (Auto) Not Reportable Baso # (Auto) Not Reportable Abs Immat Gran (auto) Not Reportable Absolute Neuts (auto) Not Reportable Absolute Nucleated RBC Not Reportable Total Counted 100 Neutrophils % (Manual) 78 H Band Neutrophils % 4 Lymphocytes % (Manual) 6.0 L Monocytes % (Manual) 9 Basophils % (Manual) 2 H Metamyelocytes % 1 Nucleated RBC % Not Reportable Abs Neuts (Manual) 6.47 Abs Lymphs (Manual) 0.47 L Abs Monocytes (Manual) 0.71 Abs Basophils (Manual) 0.15 H Nucleated RBCs 3 Platelet Estimate Adequate Hypochromasia 1+ Anisocytosis 1+ Macrocytosis 1+ Schistocytes None seen PT INR APTT Fibrinogen D-Dimer Puncture Site Left radial ABG pH 7.237 L* ABG pCO2 56.3 H ABG pO2 113.2 H ABG PO2/FiO2 Ratio 1.13 ABG HCO3 23.4 ABG O2 Saturation 97.3 ABG O2 Content 11.7 L ABG Base Excess -4.1 A-a Gradient 543.5 Oxyhemoglobin 96.3 Carboxyhemoglobin 1.3 Methemoglobin 0.3 Reduced Hemoglobin 2.1 Total Hemoglobin 8.5 L O2 Delivery Device Non-rebreather mask O2 Liters/Min 15.0 Minute Volume Vent Rate Vent Mode FiO2 100 Tidal Volume PEEP Peak Inspir Pressure Pressure Support Sodium 135 L Potassium 3.7 Chloride 107 Carbon Dioxide 27 Anion Gap 1 L BUN 17 Creatinine 0.47 L Estim Creat Clear Calc 109 Estimated GFR > 60 Glucose 120 H POC Capillary Glucose 140 H Lactic Acid 1.3 Calcium 8.0 L Magnesium 1.9 Total Bilirubin 0.8 AST 49 ALT 17 Alkaline Phosphatase 97 Ammonia 33 H Lactate Dehydrogenase Troponin I 0.052 H* NT-Pro-B Natriuret Pep 1280 H Total Protein 4.7 L Albumin 2.5 L Fluid LDH Pleural Fluid Source Pleural Color Pleural Appearance Pleural RBC Pleural Nuc Cells Pleural Neutrophils Pleural Lymphocytes Pleural Monocytes Pleural Macrophages Pleural Mesothelial Pleural Other Cells Vancomycin Trough Influenza A (RT-PCR) Influenza B (RT-PCR) RSV (RT-PCR) SARS-CoV-2 RNA (RT-PCR) Blood Type Antibody Screen Crossmatch 09/03/25 09/03/25 09/03/25 03:06 05:15 05:17 WBC 8.3 RBC 2.43 L Hgb 7.5 L Hct 23.5 L MCV 96.7 MCH 30.9 MCHC 31.9 L RDW 19.4 H Plt Count 168 MPV 11.0 H Immature Gran % (Auto) Neut % (Auto) Lymph % (Auto) [place] % (Auto) Eos % (Auto) Baso % (Auto) Lymph # (Auto) [place] # (Auto) Eos # (Auto) Baso # (Auto) Abs Immat Gran (auto) Absolute Neuts (auto) Absolute Nucleated RBC Total Counted Neutrophils % (Manual) Band Neutrophils % Lymphocytes % (Manual) Monocytes % (Manual) Basophils % (Manual) Metamyelocytes % Nucleated RBC % Abs Neuts (Manual) Abs Lymphs (Manual) Abs Monocytes (Manual) Abs Basophils (Manual) Nucleated RBCs Platelet Estimate Hypochromasia Anisocytosis Macrocytosis Schistocytes PT INR APTT Fibrinogen D-Dimer Puncture Site ABG pH ABG pCO2 ABG pO2 ABG PO2/FiO2 Ratio ABG HCO3 ABG O2 Saturation ABG O2 Content ABG Base Excess A-a Gradient Oxyhemoglobin Carboxyhemoglobin Methemoglobin Reduced Hemoglobin Total Hemoglobin O2 Delivery Device O2 Liters/Min Minute Volume Vent Rate Vent Mode FiO2 Tidal Volume PEEP Peak Inspir Pressure Pressure Support Sodium 139 Potassium 4.0 Chloride 107 Carbon Dioxide 26 Anion Gap 6 BUN 16 Creatinine 0.50 L Estim Creat Clear Calc 103 Estimated GFR > 60 Glucose 134 H POC Capillary Glucose Lactic Acid 2.0 Calcium 7.8 L Magnesium Total Bilirubin 1.0 AST 55 ALT 18 Alkaline Phosphatase 124 Ammonia Lactate Dehydrogenase 357 H Troponin I 0.085 H* D NT-Pro-B Natriuret Pep Total Protein 4.8 L Albumin 2.6 L Fluid LDH Pleural Fluid Source Pleural Color Pleural Appearance Pleural RBC Pleural Nuc Cells Pleural Neutrophils Pleural Lymphocytes Pleural Monocytes Pleural Macrophages Pleural Mesothelial Pleural Other Cells Vancomycin Trough 10.6 Influenza A (RT-PCR) Negative Influenza B (RT-PCR) Negative RSV (RT-PCR) Negative SARS-CoV-2 RNA (RT-PCR) Negative Blood Type Antibody Screen Crossmatch 09/03/25 09/03/25 09/03/25 05:30 05:45 08:24 WBC 8.3 RBC 2.21 L Hgb 6.9 L* Hct 21.1 L MCV 95.5 MCH 31.2 MCHC 32.7 RDW 19.0 H Plt Count 163 MPV 10.7 H Immature Gran % (Auto) Neut % (Auto) Lymph % (Auto) [place] % (Auto) Eos % (Auto) Baso % (Auto) Lymph # (Auto) [place] # (Auto) Eos # (Auto) Baso # (Auto) Abs Immat Gran (auto) Absolute Neuts (auto) Absolute Nucleated RBC Total Counted Neutrophils % (Manual) Band Neutrophils % Lymphocytes % (Manual) Monocytes % (Manual) Basophils % (Manual) Metamyelocytes % Nucleated RBC % Abs Neuts (Manual) Abs Lymphs (Manual) Abs Monocytes (Manual) Abs Basophils (Manual) Nucleated RBCs Platelet Estimate Hypochromasia Anisocytosis Macrocytosis Schistocytes PT 18.8 H INR 1.6 APTT > 200.0 H* Fibrinogen 430 D-Dimer 2.25 H Puncture Site Right brachial ABG pH 7.321 L ABG pCO2 43.1 ABG pO2 133.0 H ABG PO2/FiO2 Ratio 4.43 ABG HCO3 21.8 L ABG O2 Saturation 98.4 ABG O2 Content 14.1 L ABG Base Excess -4.1 A-a Gradient 30.3 Oxyhemoglobin 97.8 Carboxyhemoglobin 0.6 Methemoglobin 0.1 Reduced Hemoglobin 1.5 Total Hemoglobin 10.1 L O2 Delivery Device Ventilator O2 Liters/Min Not Reportable Minute Volume Not Reportable Vent Rate 18 Vent Mode Assist control FiO2 30 Tidal Volume 400 PEEP 5 Peak Inspir Pressure Not Reportable Pressure Support Not Reportable Sodium Potassium Chloride Carbon Dioxide Anion Gap BUN Creatinine Estim Creat Clear Calc Estimated GFR Glucose POC Capillary Glucose Lactic Acid Calcium Magnesium 2.3 Total Bilirubin AST ALT Alkaline Phosphatase Ammonia Lactate Dehydrogenase Troponin I NT-Pro-B Natriuret Pep Total Protein Albumin Fluid LDH Cancelled Pleural Fluid Source Pleural fluid Pleural Color Yellow Pleural Appearance Hazy Pleural RBC < 2000 Pleural Nuc Cells 179 Pleural Neutrophils 54 H Pleural Lymphocytes 22 Pleural Monocytes 12 Pleural Macrophages 7 Pleural Mesothelial 4 Pleural Other Cells 1 Vancomycin Trough Influenza A (RT-PCR) Influenza B (RT-PCR) RSV (RT-PCR) SARS-CoV-2 RNA (RT-PCR) Blood Type Antibody Screen Crossmatch 09/03/25 09/03/25 09/03/25 08:42 11:47 13:02 WBC RBC Hgb Hct MCV MCH MCHC RDW Plt Count MPV Immature Gran % (Auto) Neut % (Auto) Lymph % (Auto) [place] % (Auto) Eos % (Auto) Baso % (Auto) Lymph # (Auto) [place] # (Auto) Eos # (Auto) Baso # (Auto) Abs Immat Gran (auto) Absolute Neuts (auto) Absolute Nucleated RBC Total Counted Neutrophils % (Manual) Band Neutrophils % Lymphocytes % (Manual) Monocytes % (Manual) Basophils % (Manual) Metamyelocytes % Nucleated RBC % Abs Neuts (Manual) Abs Lymphs (Manual) Abs Monocytes (Manual) Abs Basophils (Manual) Nucleated RBCs Platelet Estimate Hypochromasia Anisocytosis Macrocytosis Schistocytes PT INR APTT Fibrinogen D-Dimer Puncture Site ABG pH ABG pCO2 ABG pO2 ABG PO2/FiO2 Ratio ABG HCO3 ABG O2 Saturation ABG O2 Content ABG Base Excess A-a Gradient Oxyhemoglobin Carboxyhemoglobin Methemoglobin Reduced Hemoglobin Total Hemoglobin O2 Delivery Device O2 Liters/Min Minute Volume Vent Rate Vent Mode FiO2 Tidal Volume PEEP Peak Inspir Pressure Pressure Support Sodium Potassium Chloride Carbon Dioxide Anion Gap BUN Creatinine Estim Creat Clear Calc Estimated GFR Glucose POC Capillary Glucose 215 H Lactic Acid Calcium Magnesium Total Bilirubin AST ALT Alkaline Phosphatase Ammonia Lactate Dehydrogenase Troponin I 0.142 H* D NT-Pro-B Natriuret Pep Total Protein Albumin Fluid LDH Pleural Fluid Source Pleural Color Pleural Appearance Pleural RBC Pleural Nuc Cells Pleural Neutrophils Pleural Lymphocytes Pleural Monocytes Pleural Macrophages Pleural Mesothelial Pleural Other Cells Vancomycin Trough Influenza A (RT-PCR) Influenza B (RT-PCR) RSV (RT-PCR) SARS-CoV-2 RNA (RT-PCR) Blood Type A Positive Antibody Screen Negative Crossmatch See Detail 09/03/25 09/03/25 14:54 16:01 WBC 11.0 H RBC 2.46 L Hgb 7.6 L Hct 23.1 L MCV 93.9 MCH 30.9 MCHC 32.9 RDW 18.6 H Plt Count 180 MPV 11.2 H Immature Gran % (Auto) Neut % (Auto) Lymph % (Auto) [place] % (Auto) Eos % (Auto) Baso % (Auto) Lymph # (Auto) [place] # (Auto) Eos # (Auto) Baso # (Auto) Abs Immat Gran (auto) Absolute Neuts (auto) Absolute Nucleated RBC Total Counted Neutrophils % (Manual) Band Neutrophils % Lymphocytes % (Manual) Monocytes % (Manual) Basophils % (Manual) Metamyelocytes % Nucleated RBC % Abs Neuts (Manual) Abs Lymphs (Manual) Abs Monocytes (Manual) Abs Basophils (Manual) Nucleated RBCs Platelet Estimate Hypochromasia Anisocytosis Macrocytosis Schistocytes PT INR APTT Fibrinogen D-Dimer Puncture Site ABG pH ABG pCO2 ABG pO2 ABG PO2/FiO2 Ratio ABG HCO3 ABG O2 Saturation ABG O2 Content ABG Base Excess A-a Gradient Oxyhemoglobin Carboxyhemoglobin Methemoglobin Reduced Hemoglobin Total Hemoglobin O2 Delivery Device O2 Liters/Min Minute Volume Vent Rate Vent Mode FiO2 Tidal Volume PEEP Peak Inspir Pressure Pressure Support Sodium Potassium Chloride Carbon Dioxide Anion Gap BUN Creatinine Estim Creat Clear Calc Estimated GFR Glucose POC Capillary Glucose 198 H Lactic Acid Calcium Magnesium Total Bilirubin AST ALT Alkaline Phosphatase Ammonia Lactate Dehydrogenase Troponin I NT-Pro-B Natriuret Pep Total Protein Albumin Fluid LDH Pleural Fluid Source Pleural Color Pleural Appearance Pleural RBC Pleural Nuc Cells Pleural Neutrophils Pleural Lymphocytes Pleural Monocytes Pleural Macrophages Pleural Mesothelial Pleural Other Cells Vancomycin Trough Influenza A (RT-PCR) Influenza B (RT-PCR) RSV (RT-PCR) SARS-CoV-2 RNA (RT-PCR) Blood Type Antibody Screen Crossmatch
--- NOTE | 2025-09-03 17:03 | P.PNIM_ITS ---
Progress Note: A&P Assessment and Plan (1) Septic shock: Code(s): A41.9 - Sepsis, unspecified organism; R65.21 - Severe sepsis with septic shock Status: Acute Assessment and Plan: 09/03/2025: Patient was transferred from medical floor to ICU where he was intubated, found to be hypotensive, received albumin -and IV fluid bolus, started on Levophed -patient does have a port, will use that for the pressors -continue Levophed, maintain mean arterial MAP > 65 mmHg, SBP > 100 mmHg -currently on azithromycin, cefepime, vancomycin per Infectious Disease -fluconazole for balanitis per Infectious Disease -08/30: Blood cultures negative x2 -09/03: Blood cultures obtained and pending. Id following (2) Acute respiratory failure: Code(s): J96.00 - Acute respiratory failure, unspecified whether with hypoxia or hypercapnia Status: Acute Assessment and Plan: Patient is transferred from medical floor after being found hypoxic, hypotensive and less responsive/altered mental status -increasing O2 requirements on Airvo -09/03: Patient was intubated by ER physician in the ICU -currently on CMV mode of ventilation, peep of 5, 35% FiO2. -ABGs, chest x-ray and CT chest reviewed. -continue bronchodilator -09/03: Status post right thoracentesis this by ER physician, drained 600 mL yellow sticky fluid 09/03/2025: CT chest with contrast -IMPRESSION: 1. Significant decrease in lung volumes with prominent dependent atelectasis including partial collapse of the bilateral lower lobes. Superimposed pneumonia not excludable. 2. No significant change in small left and moderate-sized right pleural effusions. 3. Moderate amount of ascites in the upper abdomen. 4. Scattered sclerotic bone lesions consistent with known metastatic prostate cancer and with chronic pathologic fracture at T10. 09/02: IMPRESSION: Moderate loculated right pleural effusion and small left pleural effusion. Patchy infiltrates are present bilaterally. There is mediastinal lymphadenopathy. Sclerotic changes within the T9 vertebral body suggestive of metastasis. (3) Pleural effusion: Code(s): J90 - Pleural effusion, not elsewhere classified Status: Acute Assessment and Plan: 09/03: Thoracentesis perform a ER physician early hours with a removal of 600 mL in yellow sticky fluid -pleural fluid studies pending -will order pleural LDH level -according the hospitalist, pleural fluid looked like an exudate. Will confirm with pleural fluid studies -continue antibiotics as above (4) Pneumonia: Code(s): J18.9 - Pneumonia, unspecified organism Status: Acute Assessment and Plan: Consolidation noted on CT scan of the chest -continue antibiotics as above -patient may require bronchoscopy, will have pulmonology evaluate the patient (5) Encephalopathy: Code(s): G93.40 - Encephalopathy, unspecified Status: Acute Assessment and Plan: Encephalopathy could be multifactorial, septic shock, hypotension, hypoxia -currently intubated, not on any sedation. -will maintain Euthermia, adequate blood pressures, adequate oxygenation IMPRESSION: CT HEAD: 1. No acute intracranial findings. CTA NECK: 1. Motion artifact along carotid bulbs. Stenosis or even dissection not excluded. Recommend carotid ultrasound. CTA HEAD: 1. No large vessel arterial occlusive disease or other acute findings. 2. No aneurysms. (6) Coagulopathy: Code(s): D68.9 - Coagulation defect, unspecified Status: Acute Assessment and Plan: PTT elevated, continue to monitor, patient not on any anticoagulation at this time (7) Anemia: Code(s): D64.9 - Anemia, unspecified Status: Acute Assessment and Plan: 09/03: Hemoglobin dropped to 6.9 this morning from 7.5. will transfuse 1 unit of packed RBCs (8) Protein calorie malnutrition: Code(s): E46 - Unspecified protein-calorie malnutrition Status: Acute Assessment and Plan: Protein calorie malnutrition, BMI of 23.6 -likely moderate protein calorie malnutrition (9) Metastatic malignant neoplasm to prostate: Code(s): C79.82 - Secondary malignant neoplasm of genital organs Status: Acute Assessment and Plan: Patient has metastatic prostate cancer, being treated by Dr. Walsh with palliative chemotherapy (10) Candidal balano-posthitis: Code(s): B37.49 - Other urogenital candidiasis Status: Acute Assessment and Plan: Continue fluconazole (11) COPD (chronic obstructive pulmonary disease): Code(s): J44.9 - Chronic obstructive pulmonary disease, unspecified Status: Acute Assessment and Plan: Continue DuoNebs, on mechanical ventilation Subjective Date/time seen: 09/03/25 17:03 Interval history: Discussed goals of care with the family. Prognosis guarded. Patient is currently intubated and sedated. Exam Narrative: General: Ill-appearing elderly patient, intubated HEENT:? Right pupil is 8 mm, reactive, left pupil is 3 mm and reactive. Sclera is clear, eyes are sunken Neck:? Supple Respiratory:? Coarse breath sounds bilaterally, rales auscultated bilaterally, no wheezing, adequate air entry otherwise Cardiac:? S1-S2 is normal, regular rate and rhythm Abdomen: Soft, nontender, non distended, hypoactive bowel sounds Extremities:? No edema, palpable pedal pulse Neuro:? Intubated, not on any sedation, does not open his eyes or follow simple commands, withdraws to pain stimuli Skin:? Skin tears noted on the feet bilaterally, Psych:? Unable to assess at this time Objective Data Vital Signs Vital Signs: Vital Signs - 24 hr 09/02/25 20:00 09/02/25 20:00 09/02/25 20:00 Temperature Pulse Rate 112 H 112 H Respiratory Rate 16 16 Blood Pressure Pulse Oximetry 91 93 Oxygen Delivery Nasal Cannula Nasal Cannula Oxygen Flow Rate 2 2 Fraction of Inspired Oxygen 09/02/25 20:05 09/02/25 21:00 09/03/25 00:58 Temperature 97.6 F Pulse Rate 118 H 112 H 114 H Respiratory Rate 16 16 20 Blood Pressure 95/53 L 101/48 L Pulse Oximetry 93 100 Oxygen Delivery Non-Rebreather Mask Oxygen Flow Rate 15 Fraction of Inspired Oxygen 09/03/25 01:00 09/03/25 01:13 09/03/25 01:20 Temperature 96.6 F L Pulse Rate 100 110 H Respiratory Rate 16 16 Blood Pressure 100/65 Pulse Oximetry 82 L Oxygen Delivery Oxygen Flow Rate Fraction of Inspired Oxygen 09/03/25 02:00 09/03/25 02:11 09/03/25 03:21 Temperature 97.4 F L 97.5 F L Pulse Rate 107 H 100 104 H Respiratory Rate 28 H 26 H 26 H Blood Pressure 99/64 L 93/43 L Pulse Oximetry 97 93 93 Oxygen Delivery High Flow Therapy with Na Oxygen Flow Rate 50 Fraction of Inspired Oxygen 50 09/03/25 03:23 09/03/25 04:00 09/03/25 04:00 Temperature Pulse Rate 105 H Respiratory Rate 21 H Blood Pressure 93/43 L 95/49 L Pulse Oximetry 100 100 Oxygen Delivery Non-Rebreather Mask Oxygen Flow Rate 15 Fraction of Inspired Oxygen 09/03/25 04:00 09/03/25 04:15 09/03/25 04:15 Temperature Pulse Rate 104 H 104 H 103 H Respiratory Rate 14 Blood Pressure 90/50 L 90/50 L Pulse Oximetry 100 Oxygen Delivery Oxygen Flow Rate Fraction of Inspired Oxygen 09/03/25 04:30 09/03/25 04:30 09/03/25 04:31 Temperature Pulse Rate 112 H 111 H 111 H Respiratory Rate 14 Blood Pressure 84/47 L 84/47 L Pulse Oximetry 100 100 Oxygen Delivery Mechanical Ventilation Oxygen Flow Rate Fraction of Inspired Oxygen 100 09/03/25 04:45 09/03/25 04:50 09/03/25 05:00 Temperature Pulse Rate 103 H 110 H Respiratory Rate 18 Blood Pressure 115/51 L 124/61 Pulse Oximetry 100 Oxygen Delivery Mechanical Ventilation Oxygen Flow Rate Fraction of Inspired Oxygen 35 09/03/25 05:00 09/03/25 05:00 09/03/25 05:00 Temperature Pulse Rate 110 H Respiratory Rate 18 Blood Pressure 124/61 Pulse Oximetry 100 Oxygen Delivery Mechanical Ventilation Oxygen Flow Rate Fraction of Inspired Oxygen 30 09/03/25 05:05 09/03/25 05:09 09/03/25 05:10 Temperature Pulse Rate 111 H 114 H 113 H Respiratory Rate 10 L 0 L Blood Pressure 120/63 105/81 115/54 L Pulse Oximetry 100 100 100 Oxygen Delivery Oxygen Flow Rate Fraction of Inspired Oxygen 09/03/25 05:12 09/03/25 05:15 09/03/25 05:16 Temperature Pulse Rate 111 H 112 H 110 H Respiratory Rate 18 18 Blood Pressure 108/49 L 101/47 L 101/51 L Pulse Oximetry 100 100 Oxygen Delivery Oxygen Flow Rate Fraction of Inspired Oxygen 09/03/25 05:18 09/03/25 05:20 09/03/25 05:22 Temperature Pulse Rate 111 H 108 H 108 H Respiratory Rate 18 18 18 Blood Pressure 103/49 L 99/48 L 94/45 L Pulse Oximetry 100 100 100 Oxygen Delivery Oxygen Flow Rate Fraction of Inspired Oxygen 09/03/25 05:24 09/03/25 05:26 09/03/25 05:29 Temperature Pulse Rate 106 H 110 H 106 H Respiratory Rate 18 18 18 Blood Pressure 94/46 L 104/46 L 85/42 L Pulse Oximetry 100 100 100 Oxygen Delivery Oxygen Flow Rate Fraction of Inspired Oxygen 09/03/25 05:30 09/03/25 05:37 09/03/25 05:41 Temperature Pulse Rate 97 104 H 103 H Respiratory Rate 18 18 Blood Pressure 86/45 L 95/44 L Pulse Oximetry 100 100 100 Oxygen Delivery Mechanical Ventilation Oxygen Flow Rate Fraction of Inspired Oxygen 30 09/03/25 05:42 09/03/25 05:44 09/03/25 05:46 Temperature Pulse Rate 103 H 103 H 103 H Respiratory Rate 18 18 18 Blood Pressure 97/45 L 107/47 L 97/46 L Pulse Oximetry 100 100 100 Oxygen Delivery Oxygen Flow Rate Fraction of Inspired Oxygen 09/03/25 05:48 09/03/25 05:55 09/03/25 05:57 Temperature Pulse Rate 103 H 103 H 100 Respiratory Rate 18 14 18 Blood Pressure 98/49 L 104/44 L 106/46 L Pulse Oximetry 100 100 100 Oxygen Delivery Oxygen Flow Rate Fraction of Inspired Oxygen 09/03/25 05:59 09/03/25 06:00 09/03/25 06:00 Temperature Pulse Rate 98 98 98 Respiratory Rate 18 Blood Pressure 99/42 L 104/40 L Pulse Oximetry 100 Oxygen Delivery Oxygen Flow Rate Fraction of Inspired Oxygen 09/03/25 06:01 09/03/25 06:03 09/03/25 06:05 Temperature Pulse Rate 99 96 96 Respiratory Rate 18 18 18 Blood Pressure 104/40 L 95/40 L 93/41 L Pulse Oximetry 100 100 100 Oxygen Delivery Oxygen Flow Rate Fraction of Inspired Oxygen 09/03/25 06:07 09/03/25 06:09 09/03/25 06:11 Temperature Pulse Rate 95 96 96 Respiratory Rate 18 18 18 Blood Pressure 100/54 L 110/50 L 114/59 L Pulse Oximetry 100 100 Oxygen Delivery Oxygen Flow Rate Fraction of Inspired Oxygen 09/03/25 06:13 09/03/25 06:15 09/03/25 06:17 Temperature Pulse Rate 96 95 96 Respiratory Rate 18 18 18 Blood Pressure 112/60 100/52 L 103/55 L Pulse Oximetry 100 100 100 Oxygen Delivery Oxygen Flow Rate Fraction of Inspired Oxygen 09/03/25 06:19 09/03/25 06:21 09/03/25 06:23 Temperature Pulse Rate 100 98 96 Respiratory Rate 18 18 18 Blood Pressure 114/60 102/52 L 93/54 L Pulse Oximetry 100 Oxygen Delivery Oxygen Flow Rate Fraction of Inspired Oxygen 09/03/25 06:26 09/03/25 06:30 09/03/25 06:31 Temperature 92.6 F L Pulse Rate 94 93 94 Respiratory Rate 18 18 18 Blood Pressure 90/46 L 83/45 L 85/49 L Pulse Oximetry 100 100 100 Oxygen Delivery Oxygen Flow Rate Fraction of Inspired Oxygen 09/03/25 06:45 09/03/25 06:45 09/03/25 06:46 Temperature 92.6 F L Pulse Rate 90 90 Respiratory Rate 18 Blood Pressure 95/45 L 95/45 L Pulse Oximetry 100 Oxygen Delivery Oxygen Flow Rate Fraction of Inspired Oxygen 09/03/25 07:00 09/03/25 07:01 09/03/25 07:16 Temperature 92.6 F L Pulse Rate 88 85 Respiratory Rate 18 6 L Blood Pressure 81/44 L 99/48 L Pulse Oximetry 100 100 Oxygen Delivery Oxygen Flow Rate Fraction of Inspired Oxygen 09/03/25 07:30 09/03/25 08:00 09/03/25 08:00 Temperature Pulse Rate 85 94 90 Respiratory Rate 18 18 18 Blood Pressure 98/56 L Pulse Oximetry 100 100 Oxygen Delivery Mechanical Ventilation Oxygen Flow Rate Fraction of Inspired Oxygen 30 09/03/25 08:00 09/03/25 08:04 09/03/25 08:06 Temperature Pulse Rate 90 Respiratory Rate Blood Pressure 98/56 L Pulse Oximetry 100 Oxygen Delivery Mechanical Ventilation Oxygen Flow Rate Fraction of Inspired Oxygen 30 09/03/25 08:25 09/03/25 08:34 09/03/25 08:46 Temperature Pulse Rate 87 88 94 Respiratory Rate 20 21 H Blood Pressure Pulse Oximetry 100 Oxygen Delivery Mechanical Ventilation Oxygen Flow Rate Fraction of Inspired Oxygen 30 09/03/25 09:00 09/03/25 10:00 09/03/25 10:00 Temperature 94.5 F L 95.7 F L Pulse Rate 94 103 H 105 H Respiratory Rate 22 H 19 Blood Pressure 94/50 L 93/47 L 93/47 L Pulse Oximetry 100 100 Oxygen Delivery Oxygen Flow Rate Fraction of Inspired Oxygen 09/03/25 10:00 09/03/25 10:19 09/03/25 10:41 Temperature 96.8 F L Pulse Rate 105 H 105 H 105 H Respiratory Rate 18 Blood Pressure 102/50 L 93/47 L Pulse Oximetry 100 Oxygen Delivery Oxygen Flow Rate Fraction of Inspired Oxygen 09/03/25 10:48 09/03/25 10:57 09/03/25 11:00 Temperature 97.3 F L 97.3 F L Pulse Rate 103 H 106 H 108 H Respiratory Rate 18 10 L Blood Pressure 98/47 L 102/49 L 100/51 L Pulse Oximetry 100 100 Oxygen Delivery Oxygen Flow Rate Fraction of Inspired Oxygen 09/03/25 11:10 09/03/25 11:57 09/03/25 11:59 Temperature 98.8 F 98.9 F Pulse Rate 106 H 108 H 109 H Respiratory Rate 18 18 Blood Pressure 111/54 L 107/54 L Pulse Oximetry 100 100 100 Oxygen Delivery Mechanical Ventilation Oxygen Flow Rate Fraction of Inspired Oxygen 30 09/03/25 12:00 09/03/25 12:00 09/03/25 12:00 Temperature Pulse Rate 105 H Respiratory Rate Blood Pressure Pulse Oximetry Oxygen Delivery Mechanical Ventilation Oxygen Flow Rate Fraction of Inspired Oxygen 30 09/03/25 12:03 09/03/25 12:57 09/03/25 13:00 Temperature 99.6 F 99.6 F Pulse Rate 105 H 105 H 112 H Respiratory Rate 18 18 Blood Pressure 107/54 L 112/55 L 124/59 L Pulse Oximetry 100 100 Oxygen Delivery Oxygen Flow Rate Fraction of Inspired Oxygen 09/03/25 13:00 09/03/25 13:04 09/03/25 13:04 Temperature Pulse Rate 111 H 116 H 116 H Respiratory Rate 18 Blood Pressure 97/50 L 97/50 L Pulse Oximetry Oxygen Delivery Oxygen Flow Rate Fraction of Inspired Oxygen 09/03/25 13:15 09/03/25 13:21 09/03/25 13:30 Temperature Pulse Rate 111 H 115 H 103 H Respiratory Rate 18 18 18 Blood Pressure Pulse Oximetry Oxygen Delivery Oxygen Flow Rate Fraction of Inspired Oxygen 09/03/25 13:45 09/03/25 13:50 09/03/25 13:54 Temperature 99.8 F H Pulse Rate 100 100 99 Respiratory Rate 18 18 Blood Pressure 115/57 L Pulse Oximetry 100 Oxygen Delivery Oxygen Flow Rate Fraction of Inspired Oxygen 09/03/25 13:57 09/03/25 13:59 09/03/25 14:00 Temperature Pulse Rate 101 H 102 H 103 H Respiratory Rate 18 18 Blood Pressure 109/53 L Pulse Oximetry 100 99 Oxygen Delivery Mechanical Ventilation Oxygen Flow Rate Fraction of Inspired Oxygen 30 09/03/25 14:00 09/03/25 14:00 09/03/25 14:03 Temperature Pulse Rate 101 H 101 H 104 H Respiratory Rate 18 18 Blood Pressure 109/53 L Pulse Oximetry Oxygen Delivery Oxygen Flow Rate Fraction of Inspired Oxygen 09/03/25 14:59 09/03/25 15:00 09/03/25 16:00 Temperature 99.8 F H Pulse Rate 98 103 H 94 Respiratory Rate 18 Blood Pressure 115/58 L 113/50 L 110/52 L Pulse Oximetry 98 Oxygen Delivery Oxygen Flow Rate Fraction of Inspired Oxygen 09/03/25 16:00 09/03/25 16:00 09/03/25 16:00 Temperature 99.6 F Pulse Rate 92 Respiratory Rate 18 Blood Pressure 110/52 L Pulse Oximetry 100 100 Oxygen Delivery Mechanical Ventilation Oxygen Flow Rate Fraction of Inspired Oxygen 30 09/03/25 16:00 09/03/25 16:06 09/03/25 16:06 Temperature Pulse Rate 92 92 92 Respiratory Rate 18 18 Blood Pressure Pulse Oximetry Oxygen Delivery Oxygen Flow Rate Fraction of Inspired Oxygen Intake/Output Intake/Output: Intake & Output 08/31/25 09/01/25 09/02/25 09/03/25 23:59 23:59 23:59 23:59 Intake Total 4140 2812 590 812.3 Output Total 1050 551 500 200 Balance 3090 2261 90 612.3 Meds/Results Medications: Active Medications Generic Name Dose Route Start Last Admin Trade Name Freq PRN Reason Stop Dose Admin Acetaminophen 650 mg 08/30/25 10:58 Acetaminophen 325 Mg Tablet PO Q4H PRN Mild Pain (1-3) or Fever Albuterol/Ipratropium 3 ml 09/01/25 08:55 09/03/25 13:57 Ipratropium 0.5 Mg/Albuterol Sulfate 2.5 Mg (Base) Ampul.Neb 3 Ml INHALATION 3 ml Q6HRT DARIEN Administration Lidocaine HCl 30 ml/ Al Hydrox 0 ml 08/30/25 17:00 09/03/25 07:00 /Mg Hydrox/Simethicone 30 ml/ PO Not Given Diphenhydramine HCl 75 mg Q4HWA DARIEN On Hold: 09/03/25 07:00 Dextrose 12.5 gm 09/03/25 10:06 Dextrose 50% 25 Gm/50 Ml Syringe IV PUSH PRN PRN Hypoglycemia Protocol Fenofibrate 145 mg 09/01/25 09:00 09/03/25 08:21 Fenofibrate 145 Mg Tablet PO Not Given QAM DARIEN Glucagon 1 mg 09/03/25 10:06 Glucagon For Inj 1 Mg Vial IM PRN PRN Hypoglycemia Protocol Glucose 15 gm 09/03/25 10:06 Glucose Oral Gel 15 Gm Of Glucse In 37.5 Gm Tube PO PRN PRN Hypoglycemia Protocol Heparin Sodium (Beef Lung) 50 units 09/03/25 09:00 09/03/25 08:22 Heparin Flush 50 Units/5 Ml Syringe IV PUSH Not Given QAM DARIEN Heparin Sodium (Beef Lung) 50 units 09/03/25 07:03 Heparin Flush 50 Units/5 Ml Syringe IV PUSH PRN PRN after intermittent infusion Heparin Sodium (Beef Lung) 50 units 09/03/25 07:03 Heparin Flush 50 Units/5 Ml Syringe IV PUSH PRN PRN after blood draws Heparin Sodium (Porcine) 500 units 09/03/25 07:03 Heparin Sodium Lock Flush 500 Units/5 Ml Syringe IV PUSH PRN PRN see comments below Norepinephrine Bitartrate 8 mg in 250 mls @ 28.125 mls/hr 09/03/25 04:20 09/03/25 16:00 Levophed 8 Mg/D5w 250 Ml IV CONT 15 mcg/min .Q8H54M DARIEN 28.13 mls/hr Protocol Titration 15 MCG/MIN Fentanyl Citrate 2,500 mcg in 250 mls @ 10 mls/hr 09/03/25 04:40 09/03/25 16:06 Fentanyl 2,500 Mcg/Ns 250 Ml IV CONT 100 mcg/hr .Q25H DARIEN 10 mls/hr Protocol Titration 100 MCG/HR Vancomycin HCl 1,500 mg in 500 mls @ 250 mls/hr 09/03/25 07:00 09/03/25 07:02 Vancomycin 1,500 Mg/Ns 500 Ml IVPB 250 mls/hr Q12H DARIEN Administration Albumin Human 100 mls @ 60 mls/hr 09/03/25 07:26 09/03/25 12:17 Albutein IVPB 09/04/25 01:39 60 mls/hr Q6HR DARIEN Administration Dextrose 1,000 mls @ 100 mls/hr 09/03/25 10:06 Dextrose 5% 1,000 Ml IVPB PRN PRN Hypoglycemia Protocol Meropenem 1 gm/ Sodium 100 mls @ 200 mls/hr 09/03/25 11:00 09/03/25 11:41 Chloride IVPB 200 mls/hr Q8H DARIEN Administration Midazolam HCl 100 mg in 100 mls @ 1 mls/hr 09/03/25 13:15 09/03/25 16:06 Versed 100 Mg/Ns 100 Ml IV CONT 1 mg/hr .Q72H DARIEN 1 mls/hr Protocol Titration 1 MG/HR Micafungin Sodium 100 mg/ 100 mls @ 100 mls/hr 09/03/25 14:00 09/03/25 14:53 Sodium Chloride IVPB 100 mls/hr Q24H DARIEN Administration Insulin Aspart 2 - 5 units 09/03/25 10:10 09/03/25 16:15 Insulin Aspart (*Bkc) 100 Units/Ml SUB-Q Not Given Q4HR DARIEN Protocol Lidocaine HCl 1 applic 08/30/25 20:34 08/31/25 09:34 Lidocaine 4% Soln 50 Ml Btl TOPICAL 1 applic PRN PRN Administration Pain Loratadine 10 mg 08/31/25 21:00 09/03/25 08:22 Loratadine 10 Mg Tablet PO Not Given QAM DARIEN Metoprolol Succinate 25 mg 08/31/25 13:45 09/02/25 11:31 Metoprolol Succinate Ext Rel 25 Mg Tabcr PO Not Given On Hold: 09/03/25 03:09 QAM DARIEN Multi-Ingred Cream/Lotion/Oil/Oint 1 applic 09/03/25 09:00 09/03/25 08:36 Mineral Oil/White Petrolatum Ointment EACH EYE 1 applic Q12HR DARIEN Administration Pantoprazole Sodium 40 mg 09/03/25 21:00 Pantoprazole Sodium Iv 40 Mg Vial IV PUSH Q12HR DARIEN Perflutren Lipid Microsphere 0 ml 09/02/25 13:55 Perflutren Lipid Microspheres 1.5 Ml Vial Diluted To 10 Ml Total Volume IV PUSH 09/05/25 13:55 ONCE PRN adequate visualization Protocol Sodium Chloride 10 ml 09/03/25 14:00 09/03/25 13:15 Central Line Flush IV PUSH 10 ml Q8HR DARIEN Administration Tamsulosin HCl 0.4 mg 09/01/25 09:00 09/03/25 08:22 Tamsulosin Hcl 0.4 Mg Capsule PO Not Given DAILY [facility] Vitamin D 125 mcg 09/01/25 09:00 09/03/25 08:21 Cholecalciferol (Vitamin D3) 125 Mcg (5,000 Units) Tablet PO Not Given DAILY [facility] Radiology Results: ITS Impressions Head CT 09/03/25 06:23 IMPRESSION: 1. No acute intracranial findings. Head/Neck CTA 09/03/25 06:30 IMPRESSION: CT HEAD: 1. No acute intracranial findings. CTA NECK: 1. Motion artifact along carotid bulbs. Stenosis or even dissection not excluded. Recommend carotid ultrasound. CTA HEAD: 1. No large vessel arterial occlusive disease or other acute findings. 2. No aneurysms. Chest X-Ray 09/03/25 07:09 IMPRESSION: 1. Large pleural effusions and significant bibasilar atelectasis and/or airspace disease much less evident than on CT hours prior. Chest CT 09/03/25 07:26 IMPRESSION: 1. Significant decrease in lung volumes with prominent dependent atelectasis including partial collapse of the bilateral lower lobes. Superimposed pneumonia not excludable. 2. No significant change in small left and moderate-sized right pleural effusions. 3. Moderate amount of ascites in the upper abdomen. 4. Scattered sclerotic bone lesions consistent with known metastatic prostate cancer and with chronic pathologic fracture at T10. Labs Labs: Laboratory Results - last 24 hr 09/03/25 09/03/25 09/03/25 01:01 01:05 01:34 WBC 7.9 RBC 2.47 L Hgb 7.8 L Hct 23.6 L MCV 95.5 MCH 31.6 MCHC 33.1 RDW 19.2 H Plt Count 162 MPV 10.8 H Immature Gran % (Auto) Not Reportable Neut % (Auto) Not Reportable Lymph % (Auto) Not Reportable [place] % (Auto) Not Reportable Eos % (Auto) Not Reportable Baso % (Auto) Not Reportable Lymph # (Auto) Not Reportable [place] # (Auto) Not Reportable Eos # (Auto) Not Reportable Baso # (Auto) Not Reportable Abs Immat Gran (auto) Not Reportable Absolute Neuts (auto) Not Reportable Absolute Nucleated RBC Not Reportable Total Counted 100 Neutrophils % (Manual) 78 H Band Neutrophils % 4 Lymphocytes % (Manual) 6.0 L Monocytes % (Manual) 9 Basophils % (Manual) 2 H Metamyelocytes % 1 Nucleated RBC % Not Reportable Abs Neuts (Manual) 6.47 Abs Lymphs (Manual) 0.47 L Abs Monocytes (Manual) 0.71 Abs Basophils (Manual) 0.15 H Nucleated RBCs 3 Platelet Estimate Adequate Hypochromasia 1+ Anisocytosis 1+ Macrocytosis 1+ Schistocytes None seen PT INR APTT Fibrinogen D-Dimer Puncture Site Left radial ABG pH 7.237 L* ABG pCO2 56.3 H ABG pO2 113.2 H ABG PO2/FiO2 Ratio 1.13 ABG HCO3 23.4 ABG O2 Saturation 97.3 ABG O2 Content 11.7 L ABG Base Excess -4.1 A-a Gradient 543.5 Oxyhemoglobin 96.3 Carboxyhemoglobin 1.3 Methemoglobin 0.3 Reduced Hemoglobin 2.1 Total Hemoglobin 8.5 L O2 Delivery Device Non-rebreather mask O2 Liters/Min 15.0 Minute Volume Vent Rate Vent Mode FiO2 100 Tidal Volume PEEP Peak Inspir Pressure Pressure Support Sodium 135 L Potassium 3.7 Chloride 107 Carbon Dioxide 27 Anion Gap 1 L BUN 17 Creatinine 0.47 L Estim Creat Clear Calc 109 Estimated GFR > 60 Glucose 120 H POC Capillary Glucose 140 H Lactic Acid 1.3 Calcium 8.0 L Magnesium 1.9 Total Bilirubin 0.8 AST 49 ALT 17 Alkaline Phosphatase 97 Ammonia 33 H Lactate Dehydrogenase Troponin I 0.052 H* NT-Pro-B Natriuret Pep 1280 H Total Protein 4.7 L Albumin 2.5 L Fluid LDH Pleural Fluid Source Pleural Color Pleural Appearance Pleural RBC Pleural Nuc Cells Pleural Neutrophils Pleural Lymphocytes Pleural Monocytes Pleural Macrophages Pleural Mesothelial Pleural Other Cells Vancomycin Trough Influenza A (RT-PCR) Influenza B (RT-PCR) RSV (RT-PCR) SARS-CoV-2 RNA (RT-PCR) Blood Type Antibody Screen Crossmatch 09/03/25 09/03/25 09/03/25 03:06 05:15 05:17 WBC 8.3 RBC 2.43 L Hgb 7.5 L Hct 23.5 L MCV 96.7 MCH 30.9 MCHC 31.9 L RDW 19.4 H Plt Count 168 MPV 11.0 H Immature Gran % (Auto) Neut % (Auto) Lymph % (Auto) [place] % (Auto) Eos % (Auto) Baso % (Auto) Lymph # (Auto) [place] # (Auto) Eos # (Auto) Baso # (Auto) Abs Immat Gran (auto) Absolute Neuts (auto) Absolute Nucleated RBC Total Counted Neutrophils % (Manual) Band Neutrophils % Lymphocytes % (Manual) Monocytes % (Manual) Basophils % (Manual) Metamyelocytes % Nucleated RBC % Abs Neuts (Manual) Abs Lymphs (Manual) Abs Monocytes (Manual) Abs Basophils (Manual) Nucleated RBCs Platelet Estimate Hypochromasia Anisocytosis Macrocytosis Schistocytes PT INR APTT Fibrinogen D-Dimer Puncture Site ABG pH ABG pCO2 ABG pO2 ABG PO2/FiO2 Ratio ABG HCO3 ABG O2 Saturation ABG O2 Content ABG Base Excess A-a Gradient Oxyhemoglobin Carboxyhemoglobin Methemoglobin Reduced Hemoglobin Total Hemoglobin O2 Delivery Device O2 Liters/Min Minute Volume Vent Rate Vent Mode FiO2 Tidal Volume PEEP Peak Inspir Pressure Pressure Support Sodium 139 Potassium 4.0 Chloride 107 Carbon Dioxide 26 Anion Gap 6 BUN 16 Creatinine 0.50 L Estim Creat Clear Calc 103 Estimated GFR > 60 Glucose 134 H POC Capillary Glucose Lactic Acid 2.0 Calcium 7.8 L Magnesium Total Bilirubin 1.0 AST 55 ALT 18 Alkaline Phosphatase 124 Ammonia Lactate Dehydrogenase 357 H Troponin I 0.085 H* D NT-Pro-B Natriuret Pep Total Protein 4.8 L Albumin 2.6 L Fluid LDH Pleural Fluid Source Pleural Color Pleural Appearance Pleural RBC Pleural Nuc Cells Pleural Neutrophils Pleural Lymphocytes Pleural Monocytes Pleural Macrophages Pleural Mesothelial Pleural Other Cells Vancomycin Trough 10.6 Influenza A (RT-PCR) Negative Influenza B (RT-PCR) Negative RSV (RT-PCR) Negative SARS-CoV-2 RNA (RT-PCR) Negative Blood Type Antibody Screen Crossmatch 09/03/25 09/03/25 09/03/25 05:30 05:45 08:24 WBC 8.3 RBC 2.21 L Hgb 6.9 L* Hct 21.1 L MCV 95.5 MCH 31.2 MCHC 32.7 RDW 19.0 H Plt Count 163 MPV 10.7 H Immature Gran % (Auto) Neut % (Auto) Lymph % (Auto) [place] % (Auto) Eos % (Auto) Baso % (Auto) Lymph # (Auto) [place] # (Auto) Eos # (Auto) Baso # (Auto) Abs Immat Gran (auto) Absolute Neuts (auto) Absolute Nucleated RBC Total Counted Neutrophils % (Manual) Band Neutrophils % Lymphocytes % (Manual) Monocytes % (Manual) Basophils % (Manual) Metamyelocytes % Nucleated RBC % Abs Neuts (Manual) Abs Lymphs (Manual) Abs Monocytes (Manual) Abs Basophils (Manual) Nucleated RBCs Platelet Estimate Hypochromasia Anisocytosis Macrocytosis Schistocytes PT 18.8 H INR 1.6 APTT > 200.0 H* Fibrinogen 430 D-Dimer 2.25 H Puncture Site Right brachial ABG pH 7.321 L ABG pCO2 43.1 ABG pO2 133.0 H ABG PO2/FiO2 Ratio 4.43 ABG HCO3 21.8 L ABG O2 Saturation 98.4 ABG O2 Content 14.1 L ABG Base Excess -4.1 A-a Gradient 30.3 Oxyhemoglobin 97.8 Carboxyhemoglobin 0.6 Methemoglobin 0.1 Reduced Hemoglobin 1.5 Total Hemoglobin 10.1 L O2 Delivery Device Ventilator O2 Liters/Min Not Reportable Minute Volume Not Reportable Vent Rate 18 Vent Mode Assist control FiO2 30 Tidal Volume 400 PEEP 5 Peak Inspir Pressure Not Reportable Pressure Support Not Reportable Sodium Potassium Chloride Carbon Dioxide Anion Gap BUN Creatinine Estim Creat Clear Calc Estimated GFR Glucose POC Capillary Glucose Lactic Acid Calcium Magnesium 2.3 Total Bilirubin AST ALT Alkaline Phosphatase Ammonia Lactate Dehydrogenase Troponin I NT-Pro-B Natriuret Pep Total Protein Albumin Fluid LDH Cancelled Pleural Fluid Source Pleural fluid Pleural Color Yellow Pleural Appearance Hazy Pleural RBC < 2000 Pleural Nuc Cells 179 Pleural Neutrophils 54 H Pleural Lymphocytes 22 Pleural Monocytes 12 Pleural Macrophages 7 Pleural Mesothelial 4 Pleural Other Cells 1 Vancomycin Trough Influenza A (RT-PCR) Influenza B (RT-PCR) RSV (RT-PCR) SARS-CoV-2 RNA (RT-PCR) Blood Type Antibody Screen Crossmatch 09/03/25 09/03/25 09/03/25 08:42 11:47 13:02 WBC RBC Hgb Hct MCV MCH MCHC RDW Plt Count MPV Immature Gran % (Auto) Neut % (Auto) Lymph % (Auto) [place] % (Auto) Eos % (Auto) Baso % (Auto) Lymph # (Auto) [place] # (Auto) Eos # (Auto) Baso # (Auto) Abs Immat Gran (auto) Absolute Neuts (auto) Absolute Nucleated RBC Total Counted Neutrophils % (Manual) Band Neutrophils % Lymphocytes % (Manual) Monocytes % (Manual) Basophils % (Manual) Metamyelocytes % Nucleated RBC % Abs Neuts (Manual) Abs Lymphs (Manual) Abs Monocytes (Manual) Abs Basophils (Manual) Nucleated RBCs Platelet Estimate Hypochromasia Anisocytosis Macrocytosis Schistocytes PT INR APTT Fibrinogen D-Dimer Puncture Site ABG pH ABG pCO2 ABG pO2 ABG PO2/FiO2 Ratio ABG HCO3 ABG O2 Saturation ABG O2 Content ABG Base Excess A-a Gradient Oxyhemoglobin Carboxyhemoglobin Methemoglobin Reduced Hemoglobin Total Hemoglobin O2 Delivery Device O2 Liters/Min Minute Volume Vent Rate Vent Mode FiO2 Tidal Volume PEEP Peak Inspir Pressure Pressure Support Sodium Potassium Chloride Carbon Dioxide Anion Gap BUN Creatinine Estim Creat Clear Calc Estimated GFR Glucose POC Capillary Glucose 215 H Lactic Acid Calcium Magnesium Total Bilirubin AST ALT Alkaline Phosphatase Ammonia Lactate Dehydrogenase Troponin I 0.142 H* D NT-Pro-B Natriuret Pep Total Protein Albumin Fluid LDH Pleural Fluid Source Pleural Color Pleural Appearance Pleural RBC Pleural Nuc Cells Pleural Neutrophils Pleural Lymphocytes Pleural Monocytes Pleural Macrophages Pleural Mesothelial Pleural Other Cells Vancomycin Trough Influenza A (RT-PCR) Influenza B (RT-PCR) RSV (RT-PCR) SARS-CoV-2 RNA (RT-PCR) Blood Type A Positive Antibody Screen Negative Crossmatch See Detail 09/03/25 09/03/25 14:54 16:01 WBC 11.0 H RBC 2.46 L Hgb 7.6 L Hct 23.1 L MCV 93.9 MCH 30.9 MCHC 32.9 RDW 18.6 H Plt Count 180 MPV 11.2 H Immature Gran % (Auto) Neut % (Auto) Lymph % (Auto) [place] % (Auto) Eos % (Auto) Baso % (Auto) Lymph # (Auto) [place] # (Auto) Eos # (Auto) Baso # (Auto) Abs Immat Gran (auto) Absolute Neuts (auto) Absolute Nucleated RBC Total Counted Neutrophils % (Manual) Band Neutrophils % Lymphocytes % (Manual) Monocytes % (Manual) Basophils % (Manual) Metamyelocytes % Nucleated RBC % Abs Neuts (Manual) Abs Lymphs (Manual) Abs Monocytes (Manual) Abs Basophils (Manual) Nucleated RBCs Platelet Estimate Hypochromasia Anisocytosis Macrocytosis Schistocytes PT INR APTT Fibrinogen D-Dimer Puncture Site ABG pH ABG pCO2 ABG pO2 ABG PO2/FiO2 Ratio ABG HCO3 ABG O2 Saturation ABG O2 Content ABG Base Excess A-a Gradient Oxyhemoglobin Carboxyhemoglobin Methemoglobin Reduced Hemoglobin Total Hemoglobin O2 Delivery Device O2 Liters/Min Minute Volume Vent Rate Vent Mode FiO2 Tidal Volume PEEP Peak Inspir Pressure Pressure Support Sodium Potassium Chloride Carbon Dioxide Anion Gap BUN Creatinine Estim Creat Clear Calc Estimated GFR Glucose POC Capillary Glucose 198 H Lactic Acid Calcium Magnesium Total Bilirubin AST ALT Alkaline Phosphatase Ammonia Lactate Dehydrogenase Troponin I NT-Pro-B Natriuret Pep Total Protein Albumin Fluid LDH Pleural Fluid Source Pleural Color Pleural Appearance Pleural RBC Pleural Nuc Cells Pleural Neutrophils Pleural Lymphocytes Pleural Monocytes Pleural Macrophages Pleural Mesothelial Pleural Other Cells Vancomycin Trough Influenza A (RT-PCR) Influenza B (RT-PCR) RSV (RT-PCR) SARS-CoV-2 RNA (RT-PCR) Blood Type Antibody Screen Crossmatch Hospitalist MIPS Advance Care Plan I have confirmed that the patient's Advanced Care Plan is present, code status is documented, or surrogate decision maker is listed in patient medical record.: Yes Medication Reconciliation I have utilized all available resources to obtain, update and review the patients current medications (includes all prescriptions, OTC, herbals, cannabis, and nutritional supplements).: Yes
[2025-09-03] MEDS: NOREPINEPHRINE 8 MG/D5W 250 ML 8 MG/250 ML BAG 16.88 MG IV CONT (21:20)
[2025-09-04] VITALS (128 sets, daily range): BP systolic 97–141; BP diastolic 50–127; PULSE 78–110; RESP 0–44; TEMP 35.7–37.6; O2SAT 93–100
[2025-09-04] MEDS: ALBUMIN HUMAN 25% 25 GM/100 ML 100 ML IVPB (00:02)
[2025-09-04] MEDS: IPRATROPIUM 0.5 MG/ALBUTEROL SULFATE 2.5 MG (BASE) AMPUL.NEB 3 ML INHALATION ×4 (02:24→22:53)
[2025-09-04] MEDS: MEROPENEM 1 GM in SODIUM CHLORIDE 0.9% IV 100 ML 200 ML IVPB ×3 (03:12→18:54)
[2025-09-04 05:00] LABS: Alveolar/Arterial O2 Gradient 92.3 mmHg; Fractional Inspired Oxygen 30 %; HCO3 ABG 21.2 mEq/l (22.0-26.0); Oxygen Content ABG 10.7 %vol (16.0-22.0); Oxygen Saturation ABG 96.6 % (95.0-100.0); PCO2 ABG 32.6 mmHg (35.0-45.0); PO2 ABG 83.3 mmHg (80.0-100.0); PO2 FiO2 Ratio Arterial Blood 2.78 %
[2025-09-04 05:01] LABS: Hematocrit 22.5 % (42.0-52.0); Hemoglobin 7.3 g/dL (14.0-18.0); Immature Granulocyte Percent A 4.1 % (0-0.5); Lymphocytes Absolute Auto 0.27 K/mm3 (0.9-3.2); Mean Corpuscular HGB Conc 32.4 g/dl (32-36); Mean Corpuscular Hemoglobin 30.7 pg (26-34); Mean Corpuscular Volume 94.5 fl (80-100); Nucleated Red Blood Cells Absolute Auto 0.230 K/mm3 (0.0-0.012); Nucleated Red Blood Cells Perc 1.2 % (0.0-0.2); Platelet Count Result 176 k/mm3 (150-375); Red Blood Count 2.38 M/mm3 (4.6-6.20); White Blood Count 18.5 K/mm3 (4.5-10.0)
[2025-09-04 05:01] LABS: Arterial Blood Gas Ventilator rate 18 /MIN; Site Drawn RIGHT BRACHIAL
[2025-09-04 05:02] LABS: Arterial Blood Gas Tidal Volume 400 ml
[2025-09-04 05:11] LABS: INR 1.7; Prothrombin Time 20.1 Seconds (11.1-14.7)
[2025-09-04 05:12] LABS: Partial Thromboplastin Time 56.8 Seconds (22.3-36.8)
[2025-09-04 05:23] LABS: Alanine Aminotransferase 12 U/L (6-50); Albumin Level 3.3 g/dL (3.5-5.1); Alkaline Phosphatase 68 U/L (38-126); Anion Gap 8 mmol/L (4-12); Aspartate Amino Transferase 37 U/L (17-59); Bilirubin,Total 1.2 mg/dL (0.2-1.3); Blood Urea Nitrogen 19 mg/dL (9-20); Calcium 7.6 mg/dL (8.4-10.2); Carbon Dioxide 23 mmol/L (22-30); Chloride 107 mmol/L (98-107); Estimated CRCL calculation 71 ml/min; Estimated Glomerular Filt Rate > 60; Glucose 166 mg/dL (65-110); Magnesium 2.5 mg/dL (1.6-2.3); Potassium 3.6 mmol/L (3.4-5.0); Sodium 138 mmol/L (137-145); Total Protein 5.0 g/dL (6.3-8.2)
[2025-09-04 05:32] LABS: Troponin I 0.411 ng/mL (0.000-0.034)
[2025-09-04 05:48] LABS: Anisocytosis 1+; Hypochromasia 1+; Schistocytes None Seen
[2025-09-04 05:59] LABS: Thyroid Stimulating Hormone 0.894 uIU/mL (0.465-4.680)
[2025-09-04] MEDS: CENTRAL LINE FLUSH 10 ML IV PUSH ×3 (07:12→20:33)
[2025-09-04] MEDS: VANCOMYCIN 1,500 MG/NS 500 ML 1,500 MG/500 ML BAG 250 MG IVPB (07:12)
[2025-09-04] MEDS: PANTOPRAZOLE SODIUM IV 40 MG VIAL IV PUSH ×2 (08:35→21:51)
[2025-09-04] MEDS: MINERAL OIL/WHITE PETROLATUM OINTMENT 1 APPLIC EACH EYE ×2 (08:35→20:33)
--- NOTE | 2025-09-04 09:02 | WPDINTPN ---
Progress Note: A&P Assessment and Plan (1) Septic shock: Code(s): A41.9 - Sepsis, unspecified organism; R65.21 - Severe sepsis with septic shock Status: Acute Assessment and Plan: 09/03/2025: Patient was transferred from medical floor to ICU where he was intubated, found to be hypotensive, received albumin -and IV fluid bolus, started on Levophed -patient does have a port, will use that for the pressors -wean Levophed to maintain mean arterial MAP > 65 mmHg, SBP > 100 mmHg -patient was on azithromycin, cefepime and vancomycin per Infectious Disease -09/03: Switch cefepime to meropenem, also discussed with Infectious Disease and micafungin was added -currently on meropenem, vancomycin micafungin, (completed a course of azithromycin) -micafungin for balanitis per Infectious Disease -08/30: Blood cultures negative x2 -09/03: Blood cultures obtained and pending (2) Acute respiratory failure: Code(s): J96.00 - Acute respiratory failure, unspecified whether with hypoxia or hypercapnia Status: Acute Assessment and Plan: Patient is transferred from medical floor after being found hypoxic, hypotensive and less responsive/altered mental status -increasing O2 requirements on Airvo -09/03: Patient was intubated by ER physician in the ICU -currently on CMV mode of ventilation, peep of 5, 35% FiO2. -ABGs, chest x-ray and CT chest reviewed. -continue bronchodilator -09/03: Status post right thoracentesis this by ER physician, drained 600 mL yellow sticky fluid 09/03/2025: CT chest with contrast -IMPRESSION: 1. Significant decrease in lung volumes with prominent dependent atelectasis including partial collapse of the bilateral lower lobes. Superimposed pneumonia not excludable. 2. No significant change in small left and moderate-sized right pleural effusions. 3. Moderate amount of ascites in the upper abdomen. 4. Scattered sclerotic bone lesions consistent with known metastatic prostate cancer and with chronic pathologic fracture at T10. 09/02: IMPRESSION: Moderate loculated right pleural effusion and small left pleural effusion. Patchy infiltrates are present bilaterally. There is mediastinal lymphadenopathy. Sclerotic changes within the T9 vertebral body suggestive of metastasis. (3) Pleural effusion: Code(s): J90 - Pleural effusion, not elsewhere classified Status: Acute Assessment and Plan: 09/03: Thoracentesis perform a ER physician early hours with a removal of 600 mL in yellow sticky fluid -pleural fluid LDH, protein are pending, -fluid gram stain did not show any organism -according the hospitalist, pleural fluid looked like an exudate. Will confirm with pleural fluid studies -continue antibiotics as above (4) Pneumonia: Code(s): J18.9 - Pneumonia, unspecified organism Status: Acute Assessment and Plan: Consolidation noted on CT scan of the chest -continue antibiotics as above -appreciate pulmonology evaluation and recommendations, thoracentesis scheduled for today, 09/04 (5) Encephalopathy: Code(s): G93.40 - Encephalopathy, unspecified Status: Acute Assessment and Plan: Encephalopathy could be multifactorial, septic shock, hypotension, hypoxia -currently intubated, not on any sedation. -will maintain Euthermia, adequate blood pressures, adequate oxygenation -09/03: patient did wake up and follows simple commands IMPRESSION: CT HEAD: 1. No acute intracranial findings. CTA NECK: 1. Motion artifact along carotid bulbs. Stenosis or even dissection not excluded. Recommend carotid ultrasound. CTA HEAD: 1. No large vessel arterial occlusive disease or other acute findings. 2. No aneurysms. (6) Coagulopathy: Code(s): D68.9 - Coagulation defect, unspecified Status: Acute Assessment and Plan: PTT elevated, continue to monitor, patient not on any anticoagulation at this time (7) Anemia: Code(s): D64.9 - Anemia, unspecified Status: Acute Assessment and Plan: 09/03: Hemoglobin dropped to 6.9 this morning from 7.5. Transfused 1 unit of packed RBCs -monitor H&H (8) Protein calorie malnutrition: Code(s): E46 - Unspecified protein-calorie malnutrition Status: Acute Assessment and Plan: Protein calorie malnutrition, BMI of 23.6 -likely moderate protein calorie malnutrition -will start trickle tube feeds -phosphorus was repleted (9) Metastatic malignant neoplasm to prostate: Code(s): C79.82 - Secondary malignant neoplasm of genital organs Status: Acute Assessment and Plan: Patient has metastatic prostate cancer, being treated by Dr. Walsh with palliative chemotherapy (10) Candidal balano-posthitis: Code(s): B37.49 - Other urogenital candidiasis Status: Acute Assessment and Plan: Continue micafungin (11) COPD (chronic obstructive pulmonary disease): Code(s): J44.9 - Chronic obstructive pulmonary disease, unspecified Status: Acute Assessment and Plan: Continue DuoNebs, on mechanical ventilation Plan DVT prophylaxis: SCDs, no chemoprophylaxis due to anemia and drop in hemoglobin Stress ulcer prophylaxis: Protonix IV q.12 hours Nutrition: Will start trickle tube feeds Code Status: Full code Critical Care Time Spent: 33 minutes Discussed with family during rounds and updated them with patient's condition and plan of care. Discussed with son, Timmy, updated him with patient's condition and plan of care. Son is aware that the patient is on vasopressors, mechanical ventilation, antibiotics, warming blanket for low body temperature. He stated that the patient wanted everything to be done for him including resuscitation. I did recommend no CPR in case of cardiac arrest given that patient is frail, CPR will cause more damage than good, risk of rib fractures most suffering for the patient. He is going to talk to his siblings and get back to me regarding DNR status. Due to a high probability of clinically significant, life threatening deterioration, the patient required my highest level of preparedness to intervene emergently and I personally spent this critical care time directly and personally managing the patient. This critical care time included obtaining a history; examining the patient; pulse oximetry; ordering and review of studies; arranging urgent treatment with development of a management plan; evaluation of patient's response to treatment; frequent reassessment; and discussions with other providers. It was exclusive of separately billable procedures and treating other patients and teaching time. Please see Assessment and Plan section and the rest of the note for further information on patient assessment and treatment This dictation may have been done utilizing a voice recognition system. Attempts have been made to correct errors. However, there may be uncorrected grammatical, spelling, and recognitions errors present. Subjective Date/time seen: 09/04/25 09:02 Interval history: Reason for consult: Acute respiratory failure, septic shock, encephalopathy, recent chemotherapy, neutropenia, fungal balanitis 09/04/2025: Patient seen examined the ICU, remains intubated on CMV mode of ventilation, peep of 5, 30% FiO2, sedated with fentanyl and Versed infusion, does not open his of follows simple commands, this morning pupils equal and reactive bilaterally. Levophed is being weaned. Patient continues to have low body temperature is, on a Manuel Hugger. Urine output was low through the night. Review of Systems Review of Systems: ROS unobtainable: Yes unobtainable due to endotracheal tube, unobtainable due to medical condition and unobtainable due to mental status Exam Narrative: General: Ill-appearing elderly patient, intubated HEENT:? Pupils equal and reactive bilaterally. Sclera is clear, eyes are sunken, ETT in place Neck:? Supple Respiratory:? Coarse breath sounds bilaterally, rales auscultated bilaterally, no wheezing, adequate air entry otherwise Cardiac:? S1-S2 is normal, regular rate and rhythm Abdomen: Soft, nontender, non distended, hypoactive bowel sounds Extremities:? No edema, palpable pedal pulse Neuro:? Intubated, on sedation, does not open his eyes or follow simple commands, withdraws to pain stimulus Skin:? Skin tears noted on the feet bilaterally, Psych:? Unable to assess at this time Objective Data Vital Signs Vital Signs: Vital Signs - 24 hr 09/03/25 10:00 09/03/25 10:00 09/03/25 10:00 Temperature 95.7 F L Pulse Rate 103 H 105 H 105 H Respiratory Rate 19 Blood Pressure 93/47 L 93/47 L Pulse Oximetry 100 Oxygen Delivery Fraction of Inspired Oxygen 09/03/25 10:19 09/03/25 10:41 09/03/25 10:48 Temperature 96.8 F L Pulse Rate 105 H 105 H 103 H Respiratory Rate 18 Blood Pressure 102/50 L 93/47 L 98/47 L Pulse Oximetry 100 Oxygen Delivery Fraction of Inspired Oxygen 09/03/25 10:57 09/03/25 11:00 09/03/25 11:10 Temperature 97.3 F L 97.3 F L Pulse Rate 106 H 108 H 106 H Respiratory Rate 18 10 L Blood Pressure 102/49 L 100/51 L Pulse Oximetry 100 100 100 Oxygen Delivery Mechanical Ventilation Fraction of Inspired Oxygen 30 09/03/25 11:57 09/03/25 11:59 09/03/25 12:00 Temperature 98.8 F 98.9 F Pulse Rate 108 H 109 H Respiratory Rate 18 18 Blood Pressure 111/54 L 107/54 L Pulse Oximetry 100 100 Oxygen Delivery Mechanical Ventilation Fraction of Inspired Oxygen 09/03/25 12:00 09/03/25 12:00 09/03/25 12:03 Temperature Pulse Rate 105 H 105 H Respiratory Rate Blood Pressure 107/54 L Pulse Oximetry Oxygen Delivery Fraction of Inspired Oxygen 30 09/03/25 12:57 09/03/25 13:00 09/03/25 13:00 Temperature 99.6 F 99.6 F Pulse Rate 105 H 112 H 111 H Respiratory Rate 18 18 18 Blood Pressure 112/55 L 124/59 L Pulse Oximetry 100 100 Oxygen Delivery Fraction of Inspired Oxygen 09/03/25 13:04 09/03/25 13:04 09/03/25 13:15 Temperature Pulse Rate 116 H 116 H 111 H Respiratory Rate 18 Blood Pressure 97/50 L 97/50 L Pulse Oximetry Oxygen Delivery Fraction of Inspired Oxygen 09/03/25 13:21 09/03/25 13:30 09/03/25 13:45 Temperature 99.8 F H Pulse Rate 115 H 103 H 100 Respiratory Rate 18 18 18 Blood Pressure 115/57 L Pulse Oximetry 100 Oxygen Delivery Fraction of Inspired Oxygen 09/03/25 13:50 09/03/25 13:54 09/03/25 13:57 Temperature Pulse Rate 100 99 101 H Respiratory Rate 18 Blood Pressure Pulse Oximetry 100 Oxygen Delivery Mechanical Ventilation Fraction of Inspired Oxygen 30 09/03/25 13:59 09/03/25 14:00 09/03/25 14:00 Temperature Pulse Rate 102 H 103 H 101 H Respiratory Rate 18 18 18 Blood Pressure 109/53 L Pulse Oximetry 99 Oxygen Delivery Fraction of Inspired Oxygen 09/03/25 14:00 09/03/25 14:03 09/03/25 14:59 Temperature Pulse Rate 101 H 104 H 98 Respiratory Rate 18 Blood Pressure 109/53 L 115/58 L Pulse Oximetry Oxygen Delivery Fraction of Inspired Oxygen 09/03/25 15:00 09/03/25 16:00 09/03/25 16:00 Temperature 99.8 F H 99.6 F Pulse Rate 103 H 94 92 Respiratory Rate 18 18 Blood Pressure 113/50 L 110/52 L 110/52 L Pulse Oximetry 98 100 Oxygen Delivery Fraction of Inspired Oxygen 09/03/25 16:00 09/03/25 16:00 09/03/25 16:00 Temperature Pulse Rate 92 Respiratory Rate Blood Pressure Pulse Oximetry 100 Oxygen Delivery Mechanical Ventilation Fraction of Inspired Oxygen 30 09/03/25 16:06 09/03/25 16:06 09/03/25 17:00 Temperature 99.2 F Pulse Rate 92 92 91 Respiratory Rate 18 18 18 Blood Pressure 115/57 L Pulse Oximetry 100 Oxygen Delivery Fraction of Inspired Oxygen 09/03/25 17:22 09/03/25 17:45 09/03/25 17:51 Temperature Pulse Rate 90 100 89 Respiratory Rate Blood Pressure 114/58 L Pulse Oximetry 99 Oxygen Delivery Mechanical Ventilation Fraction of Inspired Oxygen 30 09/03/25 18:00 09/03/25 18:12 09/03/25 18:12 Temperature Pulse Rate 90 90 93 Respiratory Rate 18 18 Blood Pressure 115/58 L 115/58 L Pulse Oximetry 100 Oxygen Delivery Fraction of Inspired Oxygen 09/03/25 18:13 09/03/25 18:40 09/03/25 18:45 Temperature Pulse Rate 91 93 91 Respiratory Rate 18 18 Blood Pressure 120/60 116/59 L Pulse Oximetry 100 Oxygen Delivery Fraction of Inspired Oxygen 09/03/25 19:00 09/03/25 19:15 09/03/25 19:30 Temperature Pulse Rate 91 91 89 Respiratory Rate 18 18 18 Blood Pressure 117/61 116/60 119/67 Pulse Oximetry 100 100 100 Oxygen Delivery Fraction of Inspired Oxygen 09/03/25 19:45 09/03/25 20:00 09/03/25 20:00 Temperature Pulse Rate 88 89 89 Respiratory Rate 18 18 Blood Pressure 116/61 118/61 Pulse Oximetry 100 Oxygen Delivery Fraction of Inspired Oxygen 09/03/25 20:00 09/03/25 20:00 09/03/25 20:00 Temperature 98.5 F Pulse Rate 89 89 88 Respiratory Rate 18 18 18 Blood Pressure 118/61 118/61 Pulse Oximetry 100 100 Oxygen Delivery Fraction of Inspired Oxygen 09/03/25 20:00 09/03/25 20:00 09/03/25 20:00 Temperature Pulse Rate 88 Respiratory Rate Blood Pressure Pulse Oximetry 100 Oxygen Delivery Mechanical Ventilation Fraction of Inspired Oxygen 30 30 09/03/25 20:15 09/03/25 20:30 09/03/25 20:32 Temperature Pulse Rate 89 90 94 Respiratory Rate 18 18 Blood Pressure 118/63 110/59 L 110/59 L Pulse Oximetry 100 97 Oxygen Delivery Fraction of Inspired Oxygen 09/03/25 20:35 09/03/25 20:41 09/03/25 20:45 Temperature Pulse Rate 88 88 91 Respiratory Rate 18 18 Blood Pressure 108/56 L Pulse Oximetry 99 100 Oxygen Delivery Mechanical Ventilation Fraction of Inspired Oxygen 30 09/03/25 20:46 09/03/25 21:00 09/03/25 21:15 Temperature Pulse Rate 89 88 89 Respiratory Rate 18 18 18 Blood Pressure 109/58 L 106/53 L Pulse Oximetry 99 99 Oxygen Delivery Fraction of Inspired Oxygen 09/03/25 21:20 09/03/25 21:20 09/03/25 21:30 Temperature Pulse Rate 88 88 89 Respiratory Rate 18 Blood Pressure 106/53 L 106/53 L 100/49 L Pulse Oximetry 99 Oxygen Delivery Fraction of Inspired Oxygen 09/03/25 21:45 09/03/25 22:00 09/03/25 22:00 Temperature Pulse Rate 89 88 88 Respiratory Rate 18 Blood Pressure 104/54 L 104/54 L Pulse Oximetry 100 Oxygen Delivery Fraction of Inspired Oxygen 09/03/25 22:00 09/03/25 22:00 09/03/25 22:00 Temperature Pulse Rate 88 88 88 Respiratory Rate 18 18 18 Blood Pressure 104/54 L Pulse Oximetry 100 Oxygen Delivery Fraction of Inspired Oxygen 09/03/25 22:15 09/03/25 22:30 09/03/25 22:45 Temperature Pulse Rate 87 88 86 Respiratory Rate 18 18 18 Blood Pressure 105/53 L 103/55 L 103/54 L Pulse Oximetry 100 100 100 Oxygen Delivery Fraction of Inspired Oxygen 09/03/25 23:00 09/03/25 23:15 09/03/25 23:15 Temperature Pulse Rate 86 85 84 Respiratory Rate 18 18 Blood Pressure 104/55 L 103/55 L Pulse Oximetry 100 100 100 Oxygen Delivery Mechanical Ventilation Fraction of Inspired Oxygen 30 09/03/25 23:30 09/03/25 23:45 09/04/25 00:00 Temperature Pulse Rate 87 84 85 Respiratory Rate 18 18 Blood Pressure 104/55 L 107/55 L 106/55 L Pulse Oximetry 100 100 Oxygen Delivery Fraction of Inspired Oxygen 09/04/25 00:00 09/04/25 00:00 09/04/25 00:00 Temperature Pulse Rate 85 85 Respiratory Rate 18 18 Blood Pressure Pulse Oximetry 100 Oxygen Delivery Mechanical Ventilation Fraction of Inspired Oxygen 30 09/04/25 00:00 09/04/25 00:00 09/04/25 00:00 Temperature 97.8 F Pulse Rate 87 85 Respiratory Rate 18 Blood Pressure 106/55 L Pulse Oximetry 100 Oxygen Delivery Fraction of Inspired Oxygen 30 09/04/25 00:15 09/04/25 00:30 09/04/25 00:45 Temperature Pulse Rate 85 84 82 Respiratory Rate 18 18 18 Blood Pressure 105/57 L 103/53 L 102/54 L Pulse Oximetry 100 100 100 Oxygen Delivery Fraction of Inspired Oxygen 09/04/25 01:01 09/04/25 01:16 09/04/25 01:31 Temperature Pulse Rate 85 86 82 Respiratory Rate 18 18 18 Blood Pressure 103/57 L 105/55 L 106/56 L Pulse Oximetry 100 100 100 Oxygen Delivery Fraction of Inspired Oxygen 09/04/25 01:46 09/04/25 02:00 09/04/25 02:00 Temperature Pulse Rate 83 84 84 Respiratory Rate 18 Blood Pressure 105/56 L 108/57 L Pulse Oximetry 100 Oxygen Delivery Fraction of Inspired Oxygen 09/04/25 02:00 09/04/25 02:00 09/04/25 02:01 Temperature Pulse Rate 87 87 84 Respiratory Rate 18 18 18 Blood Pressure 108/57 L Pulse Oximetry 100 Oxygen Delivery Fraction of Inspired Oxygen 09/04/25 02:16 09/04/25 02:25 09/04/25 02:26 Temperature Pulse Rate 81 80 80 Respiratory Rate 18 18 Blood Pressure 102/55 L Pulse Oximetry 100 100 Oxygen Delivery Mechanical Ventilation Fraction of Inspired Oxygen 30 09/04/25 02:31 09/04/25 02:32 09/04/25 02:46 Temperature Pulse Rate 82 82 86 Respiratory Rate 18 18 18 Blood Pressure 103/54 L 98/51 L Pulse Oximetry 100 100 Oxygen Delivery Fraction of Inspired Oxygen 09/04/25 03:01 09/04/25 03:16 09/04/25 03:31 Temperature Pulse Rate 87 89 89 Respiratory Rate 18 18 18 Blood Pressure 100/50 L 101/53 L 101/52 L Pulse Oximetry 100 100 100 Oxygen Delivery Fraction of Inspired Oxygen 09/04/25 03:46 09/04/25 04:00 09/04/25 04:00 Temperature Pulse Rate 87 87 87 Respiratory Rate 18 18 Blood Pressure 101/58 L 101/53 L Pulse Oximetry 100 Oxygen Delivery Fraction of Inspired Oxygen 09/04/25 04:00 09/04/25 04:00 09/04/25 04:00 Temperature Pulse Rate 87 Respiratory Rate 18 Blood Pressure Pulse Oximetry 100 Oxygen Delivery Mechanical Ventilation Fraction of Inspired Oxygen 30 30 09/04/25 04:00 09/04/25 04:01 09/04/25 05:04 Temperature 96.9 F L Pulse Rate 87 87 85 Respiratory Rate 18 Blood Pressure 101/53 L Pulse Oximetry 100 100 Oxygen Delivery Mechanical Ventilation Fraction of Inspired Oxygen 30 09/04/25 05:16 09/04/25 06:00 09/04/25 06:00 Temperature Pulse Rate 88 85 85 Respiratory Rate 3 L Blood Pressure 107/60 97/56 L Pulse Oximetry 100 Oxygen Delivery Fraction of Inspired Oxygen 09/04/25 06:00 09/04/25 06:00 09/04/25 06:00 Temperature 96.6 F L Pulse Rate 85 85 85 Respiratory Rate 18 18 18 Blood Pressure 97/56 L Pulse Oximetry 100 Oxygen Delivery Fraction of Inspired Oxygen 09/04/25 06:45 09/04/25 07:00 09/04/25 07:00 Temperature 96.3 F L Pulse Rate 79 82 Respiratory Rate 18 18 Blood Pressure 103/55 L 110/57 L Pulse Oximetry 100 100 Oxygen Delivery Fraction of Inspired Oxygen 09/04/25 07:15 09/04/25 07:30 09/04/25 07:52 Temperature Pulse Rate 80 82 82 Respiratory Rate 18 18 18 Blood Pressure 109/60 109/57 L Pulse Oximetry 100 100 Oxygen Delivery Fraction of Inspired Oxygen 09/04/25 07:54 09/04/25 07:59 09/04/25 08:00 Temperature 97.2 F L Pulse Rate 83 84 90 Respiratory Rate 18 18 Blood Pressure 108/58 L Pulse Oximetry 100 100 Oxygen Delivery Mechanical Ventilation Fraction of Inspired Oxygen 30 09/04/25 08:00 09/04/25 08:00 09/04/25 08:00 Temperature Pulse Rate 92 91 Respiratory Rate 18 Blood Pressure 109/58 L Pulse Oximetry Oxygen Delivery Fraction of Inspired Oxygen 30 09/04/25 08:41 Temperature Pulse Rate 92 Respiratory Rate 18 Blood Pressure Pulse Oximetry Oxygen Delivery Fraction of Inspired Oxygen Intake/Output Intake/Output: Intake & Output 09/01/25 09/02/25 09/03/25 09/04/25 23:59 23:59 23:59 23:59 Intake Total 2812 590 2423.0 227.2 Output Total 551 500 800 225 Balance 2261 90 1623.0 2.2 Meds/Results Medications: Active Medications Generic Name Dose Route Start Last Admin Trade Name Freq PRN Reason Stop Dose Admin Acetaminophen 650 mg 08/30/25 10:58 Acetaminophen 325 Mg Tablet PO Q4H PRN Mild Pain (1-3) or Fever Albuterol/Ipratropium 3 ml 09/01/25 08:55 09/04/25 07:51 Ipratropium 0.5 Mg/Albuterol Sulfate 2.5 Mg (Base) Ampul.Neb 3 Ml INHALATION 3 ml Q6HRT DARIEN Administration Lidocaine HCl 30 ml/ Al Hydrox 0 ml 08/30/25 17:00 09/03/25 07:00 /Mg Hydrox/Simethicone 30 ml/ PO Not Given Diphenhydramine HCl 75 mg Q4HWA DARIEN On Hold: 09/03/25 07:00 Dextrose 12.5 gm 09/03/25 10:06 Dextrose 50% 25 Gm/50 Ml Syringe IV PUSH PRN PRN Hypoglycemia Protocol Fenofibrate 145 mg 09/01/25 09:00 09/04/25 08:43 Fenofibrate 145 Mg Tablet PO Not Given QAM DARIEN Fentanyl Citrate 200 mcg 09/04/25 08:53 Fentanyl Citrate Inj (*Crx) 100 Mcg/2 Ml Vial IV PUSH 09/04/25 08:54 ONCE ONE Glucagon 1 mg 09/03/25 10:06 Glucagon For Inj 1 Mg Vial IM PRN PRN Hypoglycemia Protocol Glucose 15 gm 09/03/25 10:06 Glucose Oral Gel 15 Gm Of Glucse In 37.5 Gm Tube PO PRN PRN Hypoglycemia Protocol Heparin Sodium (Beef Lung) 50 units 09/03/25 09:00 09/04/25 08:43 Heparin Flush 50 Units/5 Ml Syringe IV PUSH Not Given QAM DARIEN Heparin Sodium (Beef Lung) 50 units 09/03/25 07:03 Heparin Flush 50 Units/5 Ml Syringe IV PUSH PRN PRN after intermittent infusion Heparin Sodium (Beef Lung) 50 units 09/03/25 07:03 Heparin Flush 50 Units/5 Ml Syringe IV PUSH PRN PRN after blood draws Heparin Sodium (Porcine) 500 units 09/03/25 07:03 Heparin Sodium Lock Flush 500 Units/5 Ml Syringe IV PUSH PRN PRN see comments below Norepinephrine Bitartrate 8 mg in 250 mls @ 9.375 mls/hr 09/03/25 04:20 09/04/25 08:00 Levophed 8 Mg/D5w 250 Ml IV CONT 5 mcg/min .Q24H DARIEN 9.38 mls/hr Protocol Titration 5 MCG/MIN Fentanyl Citrate 2,500 mcg in 250 mls @ 10 mls/hr 09/03/25 04:40 09/04/25 08:00 Fentanyl 2,500 Mcg/Ns 250 Ml IV CONT 100 mcg/hr .Q25H DARIEN 10 mls/hr Protocol Titration 100 MCG/HR Vancomycin HCl 1,500 mg in 500 mls @ 250 mls/hr 09/03/25 07:00 09/04/25 07:12 Vancomycin 1,500 Mg/Ns 500 Ml IVPB 250 mls/hr Q12H DARIEN Administration Dextrose 1,000 mls @ 100 mls/hr 09/03/25 10:06 Dextrose 5% 1,000 Ml IVPB PRN PRN Hypoglycemia Protocol Meropenem 1 gm/ Sodium 100 mls @ 200 mls/hr 09/03/25 11:00 09/04/25 03:12 Chloride IVPB 200 mls/hr Q8H DARIEN Administration Midazolam HCl 100 mg in 100 mls @ 2 mls/hr 09/03/25 13:15 09/04/25 08:41 Versed 100 Mg/Ns 100 Ml IV CONT 2 mg/hr .Q50H DARIEN 2 mls/hr Protocol Titration 2 MG/HR Micafungin Sodium 100 mg/ 100 mls @ 100 mls/hr 09/03/25 14:00 09/03/25 14:53 Sodium Chloride IVPB 100 mls/hr Q24H DARIEN Administration Potassium Phosphate 40 mmol/ 263.3333 mls @ 43.889 mls/hr 09/04/25 08:49 Sodium Chloride IVPB 09/04/25 14:48 ONCE ONE Insulin Aspart 2 - 5 units 09/03/25 10:10 09/04/25 08:43 Insulin Aspart (*Bkc) 100 Units/Ml SUB-Q Not Given Q4HR DARIEN Protocol Lidocaine HCl 1 applic 08/30/25 20:34 08/31/25 09:34 Lidocaine 4% Soln 50 Ml Btl TOPICAL 1 applic PRN PRN Administration Pain Loratadine 10 mg 08/31/25 21:00 09/04/25 08:43 Loratadine 10 Mg Tablet PO Not Given QAM DARIEN Metoprolol Succinate 25 mg 08/31/25 13:45 09/02/25 11:31 Metoprolol Succinate Ext Rel 25 Mg Tabcr PO Not Given On Hold: 09/03/25 03:09 QAM DARIEN Midazolam HCl 4 mg 09/04/25 08:53 Midazolam Hcl (*Crx) 2 Mg/2 Ml Vial IV PUSH 09/04/25 08:54 ONCE ONE Multi-Ingred Cream/Lotion/Oil/Oint 1 applic 09/03/25 09:00 09/04/25 08:35 Mineral Oil/White Petrolatum Ointment EACH EYE 1 applic Q12HR DARIEN Administration Pantoprazole Sodium 40 mg 09/03/25 21:00 09/04/25 08:35 Pantoprazole Sodium Iv 40 Mg Vial IV PUSH 40 mg Q12HR DARIEN Administration Perflutren Lipid Microsphere 0 ml 09/02/25 13:55 Perflutren Lipid Microspheres 1.5 Ml Vial Diluted To 10 Ml Total Volume IV PUSH 09/05/25 13:55 ONCE PRN adequate visualization Protocol Sodium Chloride 10 ml 09/03/25 14:00 09/04/25 07:12 Central Line Flush IV PUSH 10 ml Q8HR DARIEN Administration Tamsulosin HCl 0.4 mg 09/01/25 09:00 09/04/25 08:43 Tamsulosin Hcl 0.4 Mg Capsule PO Not Given DAILY DARIEN Vitamin D 125 mcg 09/01/25 09:00 09/04/25 08:43 Cholecalciferol (Vitamin D3) 125 Mcg (5,000 Units) Tablet PO Not Given DAILY [facility] Radiology Results: ITS Impressions Head CT 09/03/25 06:23 IMPRESSION: 1. No acute intracranial findings. Head/Neck CTA 09/03/25 06:30 IMPRESSION: CT HEAD: 1. No acute intracranial findings. CTA NECK: 1. Motion artifact along carotid bulbs. Stenosis or even dissection not excluded. Recommend carotid ultrasound. CTA HEAD: 1. No large vessel arterial occlusive disease or other acute findings. 2. No aneurysms. Chest CT 09/03/25 07:26 IMPRESSION: 1. Significant decrease in lung volumes with prominent dependent atelectasis including partial collapse of the bilateral lower lobes. Superimposed pneumonia not excludable. 2. No significant change in small left and moderate-sized right pleural effusions. 3. Moderate amount of ascites in the upper abdomen. 4. Scattered sclerotic bone lesions consistent with known metastatic prostate cancer and with chronic pathologic fracture at T10. Carotid Doppler Study 09/03/25 17:25 IMPRESSION: 1. >=70% (but less than near occlusion) stenosis in the right internal carotid artery. 2. >=70% (but less than near occlusion) stenosis in the left internal carotid artery. 3. The degree of stenosis indicated by the increased velocities is greater than would be expected given the amount of calcified atherosclerotic plaque evident on the prior CT angiogram. This suggests that the lower density linear filling defects at the bilateral carotid bulbs seen on the prior CT angiogram are not artifactual and likely to represent small dissection flaps. Abdomen X-Ray 09/04/25 07:07 IMPRESSION: 1: NG tube tip in the stomach. 2: Bibasilar airspace disease may represent edema or pneumonia. Chest X-Ray 09/04/25 07:18 IMPRESSION: 1. Small bilateral pleural effusions, right greater than left with associated atelectasis and/or pneumonia in the right mid to lower and left lower lung zones. Labs Labs: Laboratory Results - last 24 hr 09/03/25 09/03/25 09/03/25 08:24 08:42 11:47 WBC 8.3 RBC 2.21 L Hgb 6.9 L* Hct 21.1 L MCV 95.5 MCH 31.2 MCHC 32.7 RDW 19.0 H Plt Count 163 MPV 10.7 H Immature Gran % (Auto) Neut % (Auto) Lymph % (Auto) [place] % (Auto) Eos % (Auto) Baso % (Auto) Lymph # (Auto) [place] # (Auto) Eos # (Auto) Baso # (Auto) Abs Immat Gran (auto) Absolute Neuts (auto) Absolute Nucleated RBC Band Neutrophils % Nucleated RBC % Platelet Estimate Hypochromasia Anisocytosis Schistocytes PT 18.8 H INR 1.6 APTT > 200.0 H* Fibrinogen 430 D-Dimer 2.25 H Puncture Site ABG pH ABG pCO2 ABG pO2 ABG PO2/FiO2 Ratio ABG HCO3 ABG O2 Saturation ABG O2 Content ABG Base Excess A-a Gradient Oxyhemoglobin Total Hemoglobin O2 Delivery Device O2 Liters/Min Minute Volume Vent Rate Vent Mode FiO2 Tidal Volume PEEP Peak Inspir Pressure Pressure Support Sodium Potassium Chloride Carbon Dioxide Anion Gap BUN Creatinine Estim Creat Clear Calc Estimated GFR Glucose POC Capillary Glucose 215 H Lactic Acid Calcium Phosphorus Magnesium 2.3 Total Bilirubin AST ALT Alkaline Phosphatase Troponin I Total Protein Albumin TSH Blood Type A Positive Antibody Screen Negative Crossmatch See Detail 09/03/25 09/03/25 09/03/25 13:02 14:54 16:01 WBC 11.0 H RBC 2.46 L Hgb 7.6 L Hct 23.1 L MCV 93.9 MCH 30.9 MCHC 32.9 RDW 18.6 H Plt Count 180 MPV 11.2 H Immature Gran % (Auto) Neut % (Auto) Lymph % (Auto) [place] % (Auto) Eos % (Auto) Baso % (Auto) Lymph # (Auto) [place] # (Auto) Eos # (Auto) Baso # (Auto) Abs Immat Gran (auto) Absolute Neuts (auto) Absolute Nucleated RBC Band Neutrophils % Nucleated RBC % Platelet Estimate Hypochromasia Anisocytosis Schistocytes PT INR APTT Fibrinogen D-Dimer Puncture Site ABG pH ABG pCO2 ABG pO2 ABG PO2/FiO2 Ratio ABG HCO3 ABG O2 Saturation ABG O2 Content ABG Base Excess A-a Gradient Oxyhemoglobin Total Hemoglobin O2 Delivery Device O2 Liters/Min Minute Volume Vent Rate Vent Mode FiO2 Tidal Volume PEEP Peak Inspir Pressure Pressure Support Sodium Potassium Chloride Carbon Dioxide Anion Gap BUN Creatinine Estim Creat Clear Calc Estimated GFR Glucose POC Capillary Glucose 198 H Lactic Acid Calcium Phosphorus Magnesium Total Bilirubin AST ALT Alkaline Phosphatase Troponin I 0.142 H* D Total Protein Albumin TSH Blood Type Antibody Screen Crossmatch 09/03/25 09/04/25 09/04/25 20:21 00:00 04:28 WBC RBC Hgb Hct MCV MCH MCHC RDW Plt Count MPV Immature Gran % (Auto) Neut % (Auto) Lymph % (Auto) [place] % (Auto) Eos % (Auto) Baso % (Auto) Lymph # (Auto) [place] # (Auto) Eos # (Auto) Baso # (Auto) Abs Immat Gran (auto) Absolute Neuts (auto) Absolute Nucleated RBC Band Neutrophils % Nucleated RBC % Platelet Estimate Hypochromasia Anisocytosis Schistocytes PT INR APTT Fibrinogen D-Dimer Puncture Site ABG pH ABG pCO2 ABG pO2 ABG PO2/FiO2 Ratio ABG HCO3 ABG O2 Saturation ABG O2 Content ABG Base Excess A-a Gradient Oxyhemoglobin Total Hemoglobin O2 Delivery Device O2 Liters/Min Minute Volume Vent Rate Vent Mode FiO2 Tidal Volume PEEP Peak Inspir Pressure Pressure Support Sodium Potassium Chloride Carbon Dioxide Anion Gap BUN Creatinine Estim Creat Clear Calc Estimated GFR Glucose POC Capillary Glucose 193 H 186 H 172 H Lactic Acid Calcium Phosphorus Magnesium Total Bilirubin AST ALT Alkaline Phosphatase Troponin I Total Protein Albumin TSH Blood Type Antibody Screen Crossmatch 09/04/25 09/04/25 09/04/25 04:35 04:51 08:27 WBC 18.5 H RBC 2.38 L Hgb 7.3 L Hct 22.5 L MCV 94.5 MCH 30.7 MCHC 32.4 RDW 19.5 H Plt Count 176 MPV 10.9 H Immature Gran % (Auto) 4.1 H Neut % (Auto) 81.4 H Lymph % (Auto) 1.5 L [place] % (Auto) 12.6 H Eos % (Auto) 0.2 Baso % (Auto) 0.2 Lymph # (Auto) 0.27 L [place] # (Auto) 2.3 H Eos # (Auto) 0.0 Baso # (Auto) 0.0 Abs Immat Gran (auto) 0.75 H Absolute Neuts (auto) 15.1 H Absolute Nucleated RBC 0.230 H Band Neutrophils % Not Reportable Nucleated RBC % 1.2 H Platelet Estimate Adequate Hypochromasia 1+ Anisocytosis 1+ Schistocytes None seen PT 20.1 H INR 1.7 APTT 56.8 H Fibrinogen D-Dimer Puncture Site Right brachial ABG pH 7.431 ABG pCO2 32.6 L ABG pO2 83.3 ABG PO2/FiO2 Ratio 2.78 ABG HCO3 21.2 L ABG O2 Saturation 96.6 ABG O2 Content 10.7 L ABG Base Excess -2.7 A-a Gradient 92.3 Oxyhemoglobin 95.3 Total Hemoglobin 7.9 L O2 Delivery Device Ventilator O2 Liters/Min Not Reportable Minute Volume Not Reportable Vent Rate 18 Vent Mode Cmv FiO2 30 Tidal Volume 400 PEEP 5 Peak Inspir Pressure Not Reportable Pressure Support Not Reportable Sodium 138 Potassium 3.6 Chloride 107 Carbon Dioxide 23 Anion Gap 8 BUN 19 Creatinine 0.75 Estim Creat Clear Calc 71 Estimated GFR > 60 Glucose 166 H POC Capillary Glucose 165 H Lactic Acid 0.9 Calcium 7.6 L Phosphorus 1.5 L Magnesium 2.5 H Total Bilirubin 1.2 AST 37 ALT 12 Alkaline Phosphatase 68 Troponin I 0.411 H* Total Protein 5.0 L Albumin 3.3 L TSH 0.894 Blood Type Antibody Screen Crossmatch Quality VTE Prophylaxis VTE prophylaxis: mechanical ordered
[2025-09-04] MEDS: LIDOCAINE 2% JELLY 5 ML TUBE 1 APPLIC MUCOUS MEM (09:06)
--- NOTE | 2025-09-04 09:20 | CY_PTH ---
PATIENT: Gume Roberson Jr. LOC: [id number] #:[id number] AGE/SX: 75/M ROOM: 240 RE08/30/[address]: Greyson Price MD : 1950 BED: 01 DIS: 09/13/2025 SPEC #: [id number] RECD: 09/04/25 11:05 STATUS: BERNICE REQ #: [id number] MEL: 09/04/25 09:[address]: Shaynne Vaca DEPT: [facility] Cytology RECD BY: Angela Lowery ENTERED: 09/04/25 11:05 SP TYPE: Cytology OTHR DR: MD Jeremy Goodman MD Michael E. Mulligan, MD Sajjan K. Nemani, MD Onyema Nnanna, MD Tissues: A - Bronchial Alveolar Lavage Procedures: Hematoxylin and Eosin Stain Cell Block Cytopathology Cytospin
[2025-09-04] MEDS: LIDOCAINE 2% LOCAL INJ 20 ML VIAL 8 ML INFILTRATE (09:30)
[2025-09-04] MEDS: fentaNYL CITRATE INJ (*CRX) 100 MCG/2 ML VIAL 200 MCG IV PUSH (09:51)
[2025-09-04] MEDS: MIDAZOLAM HCL (*CRX) 2 MG/2 ML VIAL 4 MG IV PUSH (09:52)
[2025-09-04] MEDS: POTASSIUM PHOS,M-BASIC-D-BASIC 40 MMOL in SODIUM CHLORIDE 0.9% IV 250 ML 43.89 MMOL IVPB (10:18)
--- NOTE | 2025-09-04 10:25 | PCNFU ---
Nutrition Follow-Up Complete: Moderate protein calorie malnutrition related to inadequate energy intake as evidenced by reduced appetite and intake for greater than 1 month, a significant weight loss of -16% x 6 months, and clinical findings for moderate subcutaneous fat loss (cheeks) and moderate muscle wasting (faith, clavicle). Goal: Meet estimated nutritional needs. Pt current nutrition is NPO. Nutrition recommendation:Vital AF 1.2 at 20 ml/hr. Last recorded weight is 75 kg, 65 kg on admit. Bowel Motility: Last reported BM 09/01 Labs Reviewed: PO4 1.5, Glu 166, Alb 3.3, Hct 22.5, Hgb 7.3 Meds Noted: Versed, Fentanyl, Levophed, Vit D Skin:WNL Additional Notes: Patient remains on a mechanical vent. [employer] would like to start trickle feeding today. Tube feeding recommendations: Vital AF 1.2 at 20 ml/hr. Day 2 if able to tolerate recommend goal rate at 45 ml/hr. Day 3 end goal 65 ml/hr. Total Nutrition: 1716 kcal/107 gm protein/1160 ml water. Flush 30 ml q 4 hours. Agree with diet orders. Monitor in ICU rounds and reassessing weight, labs, skin, diet orders, meds every Sunday and Sunday.
[2025-09-04 11:13] LABS: Appearance Bronchial Fluid Cloudy; Color Bronchial Fluid Colorless; Eosinophils Bronchial Fluid 1 %; Lymphocytes Bronchial Fluid 37 %; Macrophages Bronchial Fluid 6; Monocytes Bronchial Fluid 9 %; Neutrophils Bronchial Fluid 24 %; Other Cells Bronchial Fluid 23 %; Source Bronchial Fluid Bronchial Lavage
--- NOTE | 2025-09-04 12:29 | PC.NURSE ---
Changed mepilex heel preventative dressings. initials, date and time on dressing.
[2025-09-04] MEDS: MICAFUNGIN SODIUM 100 MG in SODIUM CHLORIDE 0.9% IV 100 ML IVPB (14:38)
[2025-09-04 15:09] LABS: Albumin, Body Fluid 1.2 g/dL (Not Estab.)
[2025-09-04 15:09] LABS: LD, Body Fluid 92 IU/L (.)
--- NOTE | 2025-09-04 15:49 | PM.IMPN ---
Progress Note: A&P Assessment and Plan (1) Septic shock: Code(s): A41.9 - Sepsis, unspecified organism; R65.21 - Severe sepsis with septic shock Status: Acute Assessment and Plan: 09/03/2025: Patient was transferred from medical floor to ICU where he was intubated, found to be hypotensive, received albumin -and IV fluid bolus, started on Levophed -patient does have a port, will use that for the pressors -wean Levophed to maintain mean arterial MAP > 65 mmHg, SBP > 100 mmHg -patient was on azithromycin, cefepime and vancomycin per Infectious Disease -09/03: Switch cefepime to meropenem, also discussed with Infectious Disease and micafungin was added -currently on meropenem, vancomycin micafungin, (completed a course of azithromycin) -micafungin for balanitis per Infectious Disease -08/30: Blood cultures negative x2 -09/03: Blood cultures obtained and pending (2) Acute respiratory failure: Code(s): J96.00 - Acute respiratory failure, unspecified whether with hypoxia or hypercapnia Status: Acute Assessment and Plan: Patient is transferred from medical floor after being found hypoxic, hypotensive and less responsive/altered mental status -increasing O2 requirements on Airvo -09/03: Patient was intubated by ER physician in the ICU -currently on CMV mode of ventilation, peep of 5, 35% FiO2. -ABGs, chest x-ray and CT chest reviewed. -continue bronchodilator -09/03: Status post right thoracentesis this by ER physician, drained 600 mL yellow sticky fluid 09/03/2025: CT chest with contrast -IMPRESSION: 1. Significant decrease in lung volumes with prominent dependent atelectasis including partial collapse of the bilateral lower lobes. Superimposed pneumonia not excludable. 2. No significant change in small left and moderate-sized right pleural effusions. 3. Moderate amount of ascites in the upper abdomen. 4. Scattered sclerotic bone lesions consistent with known metastatic prostate cancer and with chronic pathologic fracture at T10. 09/02: IMPRESSION: Moderate loculated right pleural effusion and small left pleural effusion. Patchy infiltrates are present bilaterally. There is mediastinal lymphadenopathy. Sclerotic changes within the T9 vertebral body suggestive of metastasis. (3) Pleural effusion: Code(s): J90 - Pleural effusion, not elsewhere classified Status: Acute Assessment and Plan: 09/03: Thoracentesis perform a ER physician early hours with a removal of 600 mL in yellow sticky fluid -pleural fluid LDH, protein are pending, -fluid gram stain did not show any organism -according the hospitalist, pleural fluid looked like an exudate. Will confirm with pleural fluid studies -continue antibiotics as above (4) Pneumonia: Code(s): J18.9 - Pneumonia, unspecified organism Status: Acute Assessment and Plan: Consolidation noted on CT scan of the chest -continue antibiotics as above -appreciate pulmonology evaluation and recommendations, thoracentesis scheduled for today, 09/04 (5) Encephalopathy: Code(s): G93.40 - Encephalopathy, unspecified Status: Acute Assessment and Plan: Encephalopathy could be multifactorial, septic shock, hypotension, hypoxia -currently intubated, not on any sedation. -will maintain Euthermia, adequate blood pressures, adequate oxygenation -09/03: patient did wake up and follows simple commands IMPRESSION: CT HEAD: 1. No acute intracranial findings. CTA NECK: 1. Motion artifact along carotid bulbs. Stenosis or even dissection not excluded. Recommend carotid ultrasound. CTA HEAD: 1. No large vessel arterial occlusive disease or other acute findings. 2. No aneurysms. (6) Coagulopathy: Code(s): D68.9 - Coagulation defect, unspecified Status: Acute Assessment and Plan: PTT elevated, continue to monitor, patient not on any anticoagulation at this time (7) Anemia: Code(s): D64.9 - Anemia, unspecified Status: Acute Assessment and Plan: 09/03: Hemoglobin dropped to 6.9 this morning from 7.5. Transfused 1 unit of packed RBCs -monitor H&H (8) Protein calorie malnutrition: Code(s): E46 - Unspecified protein-calorie malnutrition Status: Acute Assessment and Plan: Protein calorie malnutrition, BMI of 23.6 -likely moderate protein calorie malnutrition -will start trickle tube feeds -phosphorus was repleted (9) Metastatic malignant neoplasm to prostate: Code(s): C79.82 - Secondary malignant neoplasm of genital organs Status: Acute Assessment and Plan: Patient has metastatic prostate cancer, being treated by Dr. Walsh with palliative chemotherapy (10) Candidal balano-posthitis: Code(s): B37.49 - Other urogenital candidiasis Status: Acute Assessment and Plan: Continue micafungin (11) COPD (chronic obstructive pulmonary disease): Code(s): J44.9 - Chronic obstructive pulmonary disease, unspecified Status: Acute Assessment and Plan: Continue DuoNeanny, on mechanical ventilation Subjective Date/time seen: 09/04/25 15:49 Interval history: Discussed goals of care with the family again. Patient daughter agrees with the DNR but wants to confirm with her brothers. Review of Systems Review of Systems: Other systems are reviewed and negative except as noted in history above. ROS unobtainable: Yes unobtainable due to endotracheal tube, unobtainable due to medical condition and unobtainable due to mental status Exam Narrative: General: Ill-appearing elderly patient, intubated HEENT:? Pupils equal and reactive bilaterally. Sclera is clear, eyes are sunken, ETT in place Neck:? Supple Respiratory:? Coarse breath sounds bilaterally, rales auscultated bilaterally, no wheezing, adequate air entry otherwise Cardiac:? S1-S2 is normal, regular rate and rhythm Abdomen: Soft, nontender, non distended, hypoactive bowel sounds Extremities:? No edema, palpable pedal pulse Neuro:? Intubated, on sedation, does not open his eyes or follow simple commands, withdraws to pain stimulus Skin:? Skin tears noted on the feet bilaterally, Psych:? Unable to assess at this time Objective Data Vital Signs Vital Signs: Vital Signs - 24 hr 09/03/25 16:00 09/03/25 16:00 09/03/25 16:00 Temperature 99.6 F Pulse Rate 94 92 Respiratory Rate 18 Blood Pressure 110/52 L 110/52 L Pulse Oximetry 100 Oxygen Delivery Fraction of Inspired Oxygen 30 09/03/25 16:00 09/03/25 16:00 09/03/25 16:06 Temperature Pulse Rate 92 92 Respiratory Rate 18 Blood Pressure Pulse Oximetry 100 Oxygen Delivery Mechanical Ventilation Fraction of Inspired Oxygen 09/03/25 16:06 09/03/25 17:00 09/03/25 17:22 Temperature 99.2 F Pulse Rate 92 91 90 Respiratory Rate 18 18 Blood Pressure 115/57 L 114/58 L Pulse Oximetry 100 Oxygen Delivery Fraction of Inspired Oxygen 09/03/25 17:45 09/03/25 17:51 09/03/25 18:00 Temperature Pulse Rate 100 89 90 Respiratory Rate 18 Blood Pressure 115/58 L Pulse Oximetry 99 100 Oxygen Delivery Mechanical Ventilation Fraction of Inspired Oxygen 30 09/03/25 18:12 09/03/25 18:12 09/03/25 18:13 Temperature Pulse Rate 90 93 91 Respiratory Rate 18 18 Blood Pressure 115/58 L Pulse Oximetry Oxygen Delivery Fraction of Inspired Oxygen 09/03/25 18:40 09/03/25 18:45 09/03/25 19:00 Temperature Pulse Rate 93 91 91 Respiratory Rate 18 18 Blood Pressure 120/60 116/59 L 117/61 Pulse Oximetry 100 100 Oxygen Delivery Fraction of Inspired Oxygen 09/03/25 19:15 09/03/25 19:30 09/03/25 19:45 Temperature Pulse Rate 91 89 88 Respiratory Rate 18 18 18 Blood Pressure 116/60 119/67 116/61 Pulse Oximetry 100 100 100 Oxygen Delivery Fraction of Inspired Oxygen 09/03/25 20:00 09/03/25 20:00 09/03/25 20:00 Temperature Pulse Rate 89 89 89 Respiratory Rate 18 18 Blood Pressure 118/61 Pulse Oximetry Oxygen Delivery Fraction of Inspired Oxygen 09/03/25 20:00 09/03/25 20:00 09/03/25 20:00 Temperature 98.5 F Pulse Rate 89 88 Respiratory Rate 18 18 Blood Pressure 118/61 118/61 Pulse Oximetry 100 100 100 Oxygen Delivery Mechanical Ventilation Fraction of Inspired Oxygen 30 09/03/25 20:00 09/03/25 20:00 09/03/25 20:15 Temperature Pulse Rate 88 89 Respiratory Rate 18 Blood Pressure 118/63 Pulse Oximetry 100 Oxygen Delivery Fraction of Inspired Oxygen 30 09/03/25 20:30 09/03/25 20:32 09/03/25 20:35 Temperature Pulse Rate 90 94 88 Respiratory Rate 18 Blood Pressure 110/59 L 110/59 L Pulse Oximetry 97 99 Oxygen Delivery Mechanical Ventilation Fraction of Inspired Oxygen 30 09/03/25 20:41 09/03/25 20:45 09/03/25 20:46 Temperature Pulse Rate 88 91 89 Respiratory Rate 18 18 18 Blood Pressure 108/56 L Pulse Oximetry 100 Oxygen Delivery Fraction of Inspired Oxygen 09/03/25 21:00 09/03/25 21:15 09/03/25 21:20 Temperature Pulse Rate 88 89 88 Respiratory Rate 18 18 Blood Pressure 109/58 L 106/53 L 106/53 L Pulse Oximetry 99 99 Oxygen Delivery Fraction of Inspired Oxygen 10/23/25 21:20 09/03/25 21:30 09/03/25 21:45 Temperature Pulse Rate 88 89 89 Respiratory Rate 18 18 Blood Pressure 106/53 L 100/49 L 104/54 L Pulse Oximetry 99 100 Oxygen Delivery Fraction of Inspired Oxygen 09/03/25 22:00 09/03/25 22:00 09/03/25 22:00 Temperature Pulse Rate 88 88 88 Respiratory Rate 18 Blood Pressure 104/54 L Pulse Oximetry Oxygen Delivery Fraction of Inspired Oxygen 09/03/25 22:00 09/03/25 22:00 09/03/25 22:15 Temperature Pulse Rate 88 88 87 Respiratory Rate 18 18 18 Blood Pressure 104/54 L 105/53 L Pulse Oximetry 100 100 Oxygen Delivery Fraction of Inspired Oxygen 09/03/25 22:30 09/03/25 22:45 09/03/25 23:00 Temperature Pulse Rate 88 86 86 Respiratory Rate 18 18 18 Blood Pressure 103/55 L 103/54 L 104/55 L Pulse Oximetry 100 100 100 Oxygen Delivery Fraction of Inspired Oxygen 09/03/25 23:15 09/03/25 23:15 09/03/25 23:30 Temperature Pulse Rate 85 84 87 Respiratory Rate 18 18 Blood Pressure 103/55 L 104/55 L Pulse Oximetry 100 100 100 Oxygen Delivery Mechanical Ventilation Fraction of Inspired Oxygen 30 09/03/25 23:45 09/04/25 00:00 09/04/25 00:00 Temperature Pulse Rate 84 85 85 Respiratory Rate 18 18 Blood Pressure 107/55 L 106/55 L Pulse Oximetry 100 Oxygen Delivery Fraction of Inspired Oxygen 09/04/25 00:00 09/04/25 00:00 09/04/25 00:00 Temperature Pulse Rate 85 Respiratory Rate 18 Blood Pressure Pulse Oximetry 100 Oxygen Delivery Mechanical Ventilation Fraction of Inspired Oxygen 30 30 09/04/25 00:00 09/04/25 00:00 09/04/25 00:15 Temperature 97.8 F Pulse Rate 87 85 85 Respiratory Rate 18 18 Blood Pressure 106/55 L 105/57 L Pulse Oximetry 100 100 Oxygen Delivery Fraction of Inspired Oxygen 09/04/25 00:30 09/04/25 00:45 09/04/25 01:01 Temperature Pulse Rate 84 82 85 Respiratory Rate 18 18 18 Blood Pressure 103/53 L 102/54 L 103/57 L Pulse Oximetry 100 100 100 Oxygen Delivery Fraction of Inspired Oxygen 09/04/25 01:16 09/04/25 01:31 09/04/25 01:46 Temperature Pulse Rate 86 82 83 Respiratory Rate 18 18 18 Blood Pressure 105/55 L 106/56 L 105/56 L Pulse Oximetry 100 100 100 Oxygen Delivery Fraction of Inspired Oxygen 09/04/25 02:00 09/04/25 02:00 09/04/25 02:00 Temperature Pulse Rate 84 84 87 Respiratory Rate 18 Blood Pressure 108/57 L Pulse Oximetry Oxygen Delivery Fraction of Inspired Oxygen 09/04/25 02:00 09/04/25 02:01 09/04/25 02:16 Temperature Pulse Rate 87 84 81 Respiratory Rate 18 18 18 Blood Pressure 108/57 L 102/55 L Pulse Oximetry 100 100 Oxygen Delivery Fraction of Inspired Oxygen 09/04/25 02:25 09/04/25 02:26 09/04/25 02:31 Temperature Pulse Rate 80 80 82 Respiratory Rate 18 18 Blood Pressure 103/54 L Pulse Oximetry 100 100 Oxygen Delivery Mechanical Ventilation Fraction of Inspired Oxygen 30 09/04/25 02:32 09/04/25 02:46 09/04/25 03:01 Temperature Pulse Rate 82 86 87 Respiratory Rate 18 18 18 Blood Pressure 98/51 L 100/50 L Pulse Oximetry 100 100 Oxygen Delivery Fraction of Inspired Oxygen 09/04/25 03:16 09/04/25 03:31 09/04/25 03:46 Temperature Pulse Rate 89 89 87 Respiratory Rate 18 18 18 Blood Pressure 101/53 L 101/52 L 101/58 L Pulse Oximetry 100 100 100 Oxygen Delivery Fraction of Inspired Oxygen 09/04/25 04:00 09/04/25 04:00 09/04/25 04:00 Temperature Pulse Rate 87 87 87 Respiratory Rate 18 18 Blood Pressure 101/53 L Pulse Oximetry Oxygen Delivery Fraction of Inspired Oxygen 09/04/25 04:00 09/04/25 04:00 09/04/25 04:00 Temperature Pulse Rate 87 Respiratory Rate Blood Pressure Pulse Oximetry 100 Oxygen Delivery Mechanical Ventilation Fraction of Inspired Oxygen 30 30 09/04/25 04:01 09/04/25 05:04 09/04/25 05:16 Temperature 96.9 F L Pulse Rate 87 85 88 Respiratory Rate 18 3 L Blood Pressure 101/53 L 107/60 Pulse Oximetry 100 100 100 Oxygen Delivery Mechanical Ventilation Fraction of Inspired Oxygen 30 09/04/25 06:00 09/04/25 06:00 09/04/25 06:00 Temperature Pulse Rate 85 85 85 Respiratory Rate 18 Blood Pressure 97/56 L Pulse Oximetry Oxygen Delivery Fraction of Inspired Oxygen 09/04/25 06:00 09/04/25 06:00 09/04/25 06:45 Temperature 96.6 F L Pulse Rate 85 85 79 Respiratory Rate 18 18 18 Blood Pressure 97/56 L 103/55 L Pulse Oximetry 100 100 Oxygen Delivery Fraction of Inspired Oxygen 09/04/25 07:00 09/04/25 07:00 09/04/25 07:15 Temperature 96.3 F L Pulse Rate 82 80 Respiratory Rate 18 18 Blood Pressure 110/57 L 109/60 Pulse Oximetry 100 100 Oxygen Delivery Fraction of Inspired Oxygen 09/04/25 07:30 09/04/25 07:52 09/04/25 07:54 Temperature Pulse Rate 82 82 83 Respiratory Rate 18 18 Blood Pressure 109/57 L Pulse Oximetry 100 100 Oxygen Delivery Mechanical Ventilation Fraction of Inspired Oxygen 30 09/04/25 07:59 09/04/25 08:00 09/04/25 08:00 Temperature 97.2 F L Pulse Rate 84 90 Respiratory Rate 18 18 Blood Pressure 108/58 L Pulse Oximetry 100 Oxygen Delivery Fraction of Inspired Oxygen 30 09/04/25 08:00 09/04/25 08:00 09/04/25 08:00 Temperature Pulse Rate 92 91 Respiratory Rate 18 Blood Pressure 109/58 L Pulse Oximetry 96 Oxygen Delivery Mechanical Ventilation Fraction of Inspired Oxygen 30 09/04/25 08:00 09/04/25 08:41 09/04/25 09:00 Temperature 98.8 F Pulse Rate 85 92 92 Respiratory Rate 18 18 Blood Pressure 100/50 L Pulse Oximetry 97 Oxygen Delivery Fraction of Inspired Oxygen 09/04/25 10:00 09/04/25 10:00 09/04/25 10:00 Temperature 99.5 F Pulse Rate 92 91 90 Respiratory Rate 18 Blood Pressure 98/51 L 98/51 L Pulse Oximetry 99 Oxygen Delivery Fraction of Inspired Oxygen 09/04/25 10:15 09/04/25 10:23 09/04/25 10:23 Temperature Pulse Rate 91 93 92 Respiratory Rate 18 18 Blood Pressure Pulse Oximetry 100 Oxygen Delivery Mechanical Ventilation Fraction of Inspired Oxygen 30 09/04/25 10:56 09/04/25 12:00 09/04/25 12:00 Temperature 99.5 F Pulse Rate 92 Respiratory Rate 18 Blood Pressure 101/53 L Pulse Oximetry 99 99 Oxygen Delivery Mechanical Ventilation Fraction of Inspired Oxygen 30 30 09/04/25 12:00 09/04/25 12:00 09/04/25 12:05 Temperature 99.6 F Pulse Rate 88 89 87 Respiratory Rate 18 18 Blood Pressure 100/52 L Pulse Oximetry 99 Oxygen Delivery Fraction of Inspired Oxygen 09/04/25 12:06 09/04/25 12:07 09/04/25 13:00 Temperature 99.2 F Pulse Rate 89 89 85 Respiratory Rate 18 18 Blood Pressure 101/55 L 102/51 L Pulse Oximetry 99 Oxygen Delivery Fraction of Inspired Oxygen 09/04/25 13:47 09/04/25 14:00 09/04/25 14:00 Temperature Pulse Rate 83 86 90 Respiratory Rate 18 Blood Pressure 106/54 L 106/54 L Pulse Oximetry 99 Oxygen Delivery Fraction of Inspired Oxygen 09/04/25 14:04 09/04/25 14:04 09/04/25 14:15 Temperature Pulse Rate 82 82 85 Respiratory Rate 18 18 Blood Pressure Pulse Oximetry 100 Oxygen Delivery Mechanical Ventilation Fraction of Inspired Oxygen 30 09/04/25 14:25 09/04/25 14:26 09/04/25 15:00 Temperature Pulse Rate 78 88 100 Respiratory Rate 18 18 18 Blood Pressure 113/58 L Pulse Oximetry 99 Oxygen Delivery Fraction of Inspired Oxygen Intake/Output Intake/Output: Intake & Output 09/01/25 09/02/25 09/03/25 09/04/25 23:59 23:59 23:59 23:59 Intake Total 2812 590 2523.0 431.1 Output Total 551 500 800 225 Balance 2261 90 1723.0 206.1 Meds/Results Medications: Active Medications Generic Name Dose Route Start Last Admin Trade Name Freq PRN Reason Stop Dose Admin Acetaminophen 650 mg 08/30/25 10:58 Acetaminophen 325 Mg Tablet PO Q4H PRN Mild Pain (1-3) or Fever Albuterol/Ipratropium 3 ml 09/01/25 08:55 09/04/25 14:03 Ipratropium 0.5 Mg/Albuterol Sulfate 2.5 Mg (Base) Ampul.Neb 3 Ml INHALATION 3 ml Q6HRT DARIEN Administration Lidocaine HCl 30 ml/ Al Hydrox 0 ml 08/30/25 17:00 09/03/25 07:00 /Mg Hydrox/Simethicone 30 ml/ PO Not Given Diphenhydramine HCl 75 mg Q4HWA DARIEN On Hold: 09/03/25 07:00 Dextrose 12.5 gm 09/03/25 10:06 Dextrose 50% 25 Gm/50 Ml Syringe IV PUSH PRN PRN Hypoglycemia Protocol Fenofibrate 145 mg 09/01/25 09:00 09/04/25 08:43 Fenofibrate 145 Mg Tablet PO Not Given QAM DARIEN Glucagon 1 mg 09/03/25 10:06 Glucagon For Inj 1 Mg Vial IM PRN PRN Hypoglycemia Protocol Glucose 15 gm 09/03/25 10:06 Glucose Oral Gel 15 Gm Of Glucse In 37.5 Gm Tube PO PRN PRN Hypoglycemia Protocol Heparin Sodium (Beef Lung) 50 units 09/03/25 09:00 09/04/25 08:43 Heparin Flush 50 Units/5 Ml Syringe IV PUSH Not Given QAM DARIEN Heparin Sodium (Beef Lung) 50 units 09/03/25 07:03 Heparin Flush 50 Units/5 Ml Syringe IV PUSH PRN PRN after intermittent infusion Heparin Sodium (Beef Lung) 50 units 09/03/25 07:03 Heparin Flush 50 Units/5 Ml Syringe IV PUSH PRN PRN after blood draws Heparin Sodium (Porcine) 500 units 09/03/25 07:03 Heparin Sodium Lock Flush 500 Units/5 Ml Syringe IV PUSH PRN PRN see comments below Norepinephrine Bitartrate 8 mg in 250 mls @ 9.375 mls/hr 09/03/25 04:20 09/04/25 14:00 Levophed 8 Mg/D5w 250 Ml IV CONT 5 mcg/min .Q24H DARIEN 9.38 mls/hr Protocol Titration 5 MCG/MIN Fentanyl Citrate 2,500 mcg in 250 mls @ 2.5 mls/hr 09/03/25 04:40 09/04/25 14:25 Fentanyl 2,500 Mcg/Ns 250 Ml IV CONT 25 mcg/hr .Q72H DARIEN 2.5 mls/hr Protocol Titration 25 MCG/HR Vancomycin HCl 1,500 mg in 500 mls @ 250 mls/hr 09/03/25 07:00 09/04/25 07:12 Vancomycin 1,500 Mg/Ns 500 Ml IVPB 250 mls/hr Q12H DARIEN Administration Dextrose 1,000 mls @ 100 mls/hr 09/03/25 10:06 Dextrose 5% 1,000 Ml IVPB PRN PRN Hypoglycemia Protocol Meropenem 1 gm/ Sodium 100 mls @ 200 mls/hr 09/03/25 11:00 09/04/25 10:22 Chloride IVPB 200 mls/hr Q8H DARIEN Administration Midazolam HCl 100 mg in 100 mls @ 0 mls/hr 09/03/25 13:15 09/04/25 14:26 Versed 100 Mg/Ns 100 Ml IV CONT 0 mg/hr .Q0M DARIEN 0 mls/hr Protocol Titration 0 MG/HR Micafungin Sodium 100 mg/ 100 mls @ 100 mls/hr 09/03/25 14:00 09/04/25 14:38 Sodium Chloride IVPB 100 mls/hr Q24H DARIEN Administration Insulin Aspart 2 - 5 units 09/03/25 10:10 09/04/25 12:10 Insulin Aspart (*Bkc) 100 Units/Ml SUB-Q Not Given Q4HR DARIEN Protocol Lidocaine HCl 1 applic 08/30/25 20:34 08/31/25 09:34 Lidocaine 4% Soln 50 Ml Btl TOPICAL 1 applic PRN PRN Administration Pain Loratadine 10 mg 08/31/25 21:00 09/04/25 08:43 Loratadine 10 Mg Tablet PO Not Given QAM [facility] Metoprolol Succinate 25 mg 08/31/25 13:45 09/02/25 11:31 Metoprolol Succinate Ext Rel 25 Mg Tabcr PO Not Given On Hold: 09/03/25 03:09 QAM [facility] Multi-Ingred Cream/Lotion/Oil/Oint 1 applic 09/03/25 09:00 09/04/25 08:35 Mineral Oil/White Petrolatum Ointment EACH EYE 1 applic Q12HR DARIEN Administration Pantoprazole Sodium 40 mg 09/03/25 21:00 09/04/25 08:35 Pantoprazole Sodium Iv 40 Mg Vial IV PUSH 40 mg Q12HR DARIEN Administration Perflutren Lipid Microsphere 0 ml 09/02/25 13:55 Perflutren Lipid Microspheres 1.5 Ml Vial Diluted To 10 Ml Total Volume IV PUSH 09/05/25 13:55 ONCE PRN adequate visualization Protocol Sodium Chloride 10 ml 10/23/25 14:00 09/04/25 15:22 Central Line Flush IV PUSH 10 ml Q8HR DARIEN Administration Tamsulosin HCl 0.4 mg 09/01/25 09:00 09/04/25 08:43 Tamsulosin Hcl 0.4 Mg Capsule PO Not Given DAILY DARIEN Vitamin D 125 mcg 09/01/25 09:00 09/04/25 08:43 Cholecalciferol (Vitamin D3) 125 Mcg (5,000 Units) Tablet PO Not Given DAILY DARIEN Radiology Results: ITS Impressions Head CT 09/03/25 06:23 IMPRESSION: 1. No acute intracranial findings. Head/Neck CTA 09/03/25 06:30 IMPRESSION: CT HEAD: 1. No acute intracranial findings. CTA NECK: 1. Motion artifact along carotid bulbs. Stenosis or even dissection not excluded. Recommend carotid ultrasound. CTA HEAD: 1. No large vessel arterial occlusive disease or other acute findings. 2. No aneurysms. Chest CT 09/03/25 07:26 IMPRESSION: 1. Significant decrease in lung volumes with prominent dependent atelectasis including partial collapse of the bilateral lower lobes. Superimposed pneumonia not excludable. 2. No significant change in small left and moderate-sized right pleural effusions. 3. Moderate amount of ascites in the upper abdomen. 4. Scattered sclerotic bone lesions consistent with known metastatic prostate cancer and with chronic pathologic fracture at T10. Carotid Doppler Study 09/03/25 17:25 IMPRESSION: 1. >=70% (but less than near occlusion) stenosis in the right internal carotid artery. 2. >=70% (but less than near occlusion) stenosis in the left internal carotid artery. 3. The degree of stenosis indicated by the increased velocities is greater than would be expected given the amount of calcified atherosclerotic plaque evident on the prior CT angiogram. This suggests that the lower density linear filling defects at the bilateral carotid bulbs seen on the prior CT angiogram are not artifactual and likely to represent small dissection flaps. Abdomen X-Ray 09/04/25 07:07 IMPRESSION: 1: NG tube tip in the stomach. 2: Bibasilar airspace disease may represent edema or pneumonia. Chest X-Ray 09/04/25 07:18 IMPRESSION: 1. Small bilateral pleural effusions, right greater than left with associated atelectasis and/or pneumonia in the right mid to lower and left lower lung zones. Labs Labs: Laboratory Results - last 24 hr 09/03/25 09/03/25 09/03/25 05:44 05:45 16:01 WBC RBC Hgb Hct MCV MCH MCHC RDW Plt Count MPV Immature Gran % (Auto) Neut % (Auto) Lymph % (Auto) [place] % (Auto) Eos % (Auto) Baso % (Auto) Lymph # (Auto) [place] # (Auto) Eos # (Auto) Baso # (Auto) Abs Immat Gran (auto) Absolute Neuts (auto) Absolute Nucleated RBC Band Neutrophils % Nucleated RBC % Platelet Estimate Hypochromasia Anisocytosis Schistocytes PT INR APTT Puncture Site ABG pH ABG pCO2 ABG pO2 ABG PO2/FiO2 Ratio ABG HCO3 ABG O2 Saturation ABG O2 Content ABG Base Excess A-a Gradient Oxyhemoglobin Total Hemoglobin O2 Delivery Device O2 Liters/Min Minute Volume Vent Rate Vent Mode FiO2 Tidal Volume PEEP Peak Inspir Pressure Pressure Support Sodium Potassium Chloride Carbon Dioxide Anion Gap BUN Creatinine Estim Creat Clear Calc Estimated GFR Glucose POC Capillary Glucose 198 H Lactic Acid Calcium Phosphorus Magnesium Total Bilirubin AST ALT Alkaline Phosphatase Troponin I Total Protein Albumin TSH Fluid Total Protein 1.7 Fluid Albumin 1.2 Fluid LDH 92 Pleural Total Protein Cancelled Bronch Specimen Source Bronchial Fluid Color Bronchial Fluid Appearance Bronchial Neutrophils Bronchial Lymphocytes Bronchial Monocytes Bronchial Eosinophils Bronchial Macrophages Bronchial Other Cells 09/03/25 09/04/25 09/04/25 20:21 00:00 04:28 WBC RBC Hgb Hct MCV MCH MCHC RDW Plt Count MPV Immature Gran % (Auto) Neut % (Auto) Lymph % (Auto) [place] % (Auto) Eos % (Auto) Baso % (Auto) Lymph # (Auto) [place] # (Auto) Eos # (Auto) Baso # (Auto) Abs Immat Gran (auto) Absolute Neuts (auto) Absolute Nucleated RBC Band Neutrophils % Nucleated RBC % Platelet Estimate Hypochromasia Anisocytosis Schistocytes PT INR APTT Puncture Site ABG pH ABG pCO2 ABG pO2 ABG PO2/FiO2 Ratio ABG HCO3 ABG O2 Saturation ABG O2 Content ABG Base Excess A-a Gradient Oxyhemoglobin Total Hemoglobin O2 Delivery Device O2 Liters/Min Minute Volume Vent Rate Vent Mode FiO2 Tidal Volume PEEP Peak Inspir Pressure Pressure Support Sodium Potassium Chloride Carbon Dioxide Anion Gap BUN Creatinine Estim Creat Clear Calc Estimated GFR Glucose POC Capillary Glucose 193 H 186 H 172 H Lactic Acid Calcium Phosphorus Magnesium Total Bilirubin AST ALT Alkaline Phosphatase Troponin I Total Protein Albumin TSH Fluid Total Protein Fluid Albumin Fluid LDH Pleural Total Protein Bronch Specimen Source Bronchial Fluid Color Bronchial Fluid Appearance Bronchial Neutrophils Bronchial Lymphocytes Bronchial Monocytes Bronchial Eosinophils Bronchial Macrophages Bronchial Other Cells 09/04/25 09/04/25 09/04/25 04:35 04:51 08:27 WBC 18.5 H RBC 2.38 L Hgb 7.3 L Hct 22.5 L MCV 94.5 MCH 30.7 MCHC 32.4 RDW 19.5 H Plt Count 176 MPV 10.9 H Immature Gran % (Auto) 4.1 H Neut % (Auto) 81.4 H Lymph % (Auto) 1.5 L [place] % (Auto) 12.6 H Eos % (Auto) 0.2 Baso % (Auto) 0.2 Lymph # (Auto) 0.27 L [place] # (Auto) 2.3 H Eos # (Auto) 0.0 Baso # (Auto) 0.0 Abs Immat Gran (auto) 0.75 H Absolute Neuts (auto) 15.1 H Absolute Nucleated RBC 0.230 H Band Neutrophils % Not Reportable Nucleated RBC % 1.2 H Platelet Estimate Adequate Hypochromasia 1+ Anisocytosis 1+ Schistocytes None seen PT 20.1 H INR 1.7 APTT 56.8 H Puncture Site Right brachial ABG pH 7.431 ABG pCO2 32.6 L ABG pO2 83.3 ABG PO2/FiO2 Ratio 2.78 ABG HCO3 21.2 L ABG O2 Saturation 96.6 ABG O2 Content 10.7 L ABG Base Excess -2.7 A-a Gradient 92.3 Oxyhemoglobin 95.3 Total Hemoglobin 7.9 L O2 Delivery Device Ventilator O2 Liters/Min Not Reportable Minute Volume Not Reportable Vent Rate 18 Vent Mode Cmv FiO2 30 Tidal Volume 400 PEEP 5 Peak Inspir Pressure Not Reportable Pressure Support Not Reportable Sodium 138 Potassium 3.6 Chloride 107 Carbon Dioxide 23 Anion Gap 8 BUN 19 Creatinine 0.75 Estim Creat Clear Calc 71 Estimated GFR > 60 Glucose 166 H POC Capillary Glucose 165 H Lactic Acid 0.9 Calcium 7.6 L Phosphorus 1.5 L Magnesium 2.5 H Total Bilirubin 1.2 AST 37 ALT 12 Alkaline Phosphatase 68 Troponin I 0.411 H* Total Protein 5.0 L Albumin 3.3 L TSH 0.894 Fluid Total Protein Fluid Albumin Fluid LDH Pleural Total Protein Bronch Specimen Source Bronchial Fluid Color Bronchial Fluid Appearance Bronchial Neutrophils Bronchial Lymphocytes Bronchial Monocytes Bronchial Eosinophils Bronchial Macrophages Bronchial Other Cells 09/04/25 09/04/25 09/04/25 09:20 09:20 09:20 WBC RBC Hgb Hct MCV MCH MCHC RDW Plt Count MPV Immature Gran % (Auto) Neut % (Auto) Lymph % (Auto) [place] % (Auto) Eos % (Auto) Baso % (Auto) Lymph # (Auto) [place] # (Auto) Eos # (Auto) Baso # (Auto) Abs Immat Gran (auto) Absolute Neuts (auto) Absolute Nucleated RBC Band Neutrophils % Nucleated RBC % Platelet Estimate Hypochromasia Anisocytosis Schistocytes PT INR APTT Puncture Site ABG pH ABG pCO2 ABG pO2 ABG PO2/FiO2 Ratio ABG HCO3 ABG O2 Saturation ABG O2 Content ABG Base Excess A-a Gradient Oxyhemoglobin Total Hemoglobin O2 Delivery Device O2 Liters/Min Minute Volume Vent Rate Vent Mode FiO2 Tidal Volume PEEP Peak Inspir Pressure Pressure Support Sodium Potassium Chloride Carbon Dioxide Anion Gap BUN Creatinine Estim Creat Clear Calc Estimated GFR Glucose POC Capillary Glucose Lactic Acid Calcium Phosphorus Magnesium Total Bilirubin AST ALT Alkaline Phosphatase Troponin I Total Protein Albumin TSH Fluid Total Protein Fluid Albumin Fluid LDH Pleural Total Protein Bronch Specimen Source Bronchial lavage Cancelled Bronchial Fluid Color Colorless Cancelled Bronchial Fluid Appearance Cloudy Bronchial Neutrophils Bronchial Lymphocytes Bronchial Monocytes Bronchial Eosinophils Bronchial Macrophages Bronchial Other Cells 09/04/25 09/04/25 09/04/25 09:20 09:20 09:20 WBC RBC Hgb Hct MCV MCH MCHC RDW Plt Count MPV Immature Gran % (Auto) Neut % (Auto) Lymph % (Auto) [place] % (Auto) Eos % (Auto) Baso % (Auto) Lymph # (Auto) [place] # (Auto) Eos # (Auto) Baso # (Auto) Abs Immat Gran (auto) Absolute Neuts (auto) Absolute Nucleated RBC Band Neutrophils % Nucleated RBC % Platelet Estimate Hypochromasia Anisocytosis Schistocytes PT INR APTT Puncture Site ABG pH ABG pCO2 ABG pO2 ABG PO2/FiO2 Ratio ABG HCO3 ABG O2 Saturation ABG O2 Content ABG Base Excess A-a Gradient Oxyhemoglobin Total Hemoglobin O2 Delivery Device O2 Liters/Min Minute Volume Vent Rate Vent Mode FiO2 Tidal Volume PEEP Peak Inspir Pressure Pressure Support Sodium Potassium Chloride Carbon Dioxide Anion Gap BUN Creatinine Estim Creat Clear Calc Estimated GFR Glucose POC Capillary Glucose Lactic Acid Calcium Phosphorus Magnesium Total Bilirubin AST ALT Alkaline Phosphatase Troponin I Total Protein Albumin TSH Fluid Total Protein Fluid Albumin Fluid LDH Pleural Total Protein Bronch Specimen Source Bronchial Fluid Color Bronchial Fluid Appearance Cancelled Bronchial Neutrophils 24 Cancelled Bronchial Lymphocytes 37 Cancelled Bronchial Monocytes 9 Bronchial Eosinophils Bronchial Macrophages Bronchial Other Cells 09/04/25 09/04/25 09/04/25 09:20 09:20 09:20 WBC RBC Hgb Hct MCV MCH MCHC RDW Plt Count MPV Immature Gran % (Auto) Neut % (Auto) Lymph % (Auto) [place] % (Auto) Eos % (Auto) Baso % (Auto) Lymph # (Auto) [place] # (Auto) Eos # (Auto) Baso # (Auto) Abs Immat Gran (auto) Absolute Neuts (auto) Absolute Nucleated RBC Band Neutrophils % Nucleated RBC % Platelet Estimate Hypochromasia Anisocytosis Schistocytes PT INR APTT Puncture Site ABG pH ABG pCO2 ABG pO2 ABG PO2/FiO2 Ratio ABG HCO3 ABG O2 Saturation ABG O2 Content ABG Base Excess A-a Gradient Oxyhemoglobin Total Hemoglobin O2 Delivery Device O2 Liters/Min Minute Volume Vent Rate Vent Mode FiO2 Tidal Volume PEEP Peak Inspir Pressure Pressure Support Sodium Potassium Chloride Carbon Dioxide Anion Gap BUN Creatinine Estim Creat Clear Calc Estimated GFR Glucose POC Capillary Glucose Lactic Acid Calcium Phosphorus Magnesium Total Bilirubin AST ALT Alkaline Phosphatase Troponin I Total Protein Albumin TSH Fluid Total Protein Fluid Albumin Fluid LDH Pleural Total Protein Bronch Specimen Source Bronchial Fluid Color Bronchial Fluid Appearance Bronchial Neutrophils Bronchial Lymphocytes Bronchial Monocytes Cancelled Bronchial Eosinophils 1 Cancelled Bronchial Macrophages 6 Cancelled Bronchial Other Cells 23 09/04/25 09/04/25 09:20 11:59 WBC RBC Hgb Hct MCV MCH MCHC RDW Plt Count MPV Immature Gran % (Auto) Neut % (Auto) Lymph % (Auto) [place] % (Auto) Eos % (Auto) Baso % (Auto) Lymph # (Auto) [place] # (Auto) Eos # (Auto) Baso # (Auto) Abs Immat Gran (auto) Absolute Neuts (auto) Absolute Nucleated RBC Band Neutrophils % Nucleated RBC % Platelet Estimate Hypochromasia Anisocytosis Schistocytes PT INR APTT Puncture Site ABG pH ABG pCO2 ABG pO2 ABG PO2/FiO2 Ratio ABG HCO3 ABG O2 Saturation ABG O2 Content ABG Base Excess A-a Gradient Oxyhemoglobin Total Hemoglobin O2 Delivery Device O2 Liters/Min Minute Volume Vent Rate Vent Mode FiO2 Tidal Volume PEEP Peak Inspir Pressure Pressure Support Sodium Potassium Chloride Carbon Dioxide Anion Gap BUN Creatinine Estim Creat Clear Calc Estimated GFR Glucose POC Capillary Glucose 136 H Lactic Acid Calcium Phosphorus Magnesium Total Bilirubin AST ALT Alkaline Phosphatase Troponin I Total Protein Albumin TSH Fluid Total Protein Fluid Albumin Fluid LDH Pleural Total Protein Bronch Specimen Source Bronchial Fluid Color Bronchial Fluid Appearance Bronchial Neutrophils Bronchial Lymphocytes Bronchial Monocytes Bronchial Eosinophils Bronchial Macrophages Bronchial Other Cells Cancelled Quality VTE Prophylaxis VTE prophylaxis: mechanical ordered Hospitalist MIPS Advance Care Plan I have confirmed that the patient's Advanced Care Plan is present, code status is documented, or surrogate decision maker is listed in patient medical record.: Yes Medication Reconciliation I have utilized all available resources to obtain, update and review the patients current medications (includes all prescriptions, OTC, herbals, cannabis, and nutritional supplements).: Yes
[2025-09-04] MEDS: FENTANYL 2,500MCG/NS250ML(*CRX 2,500 MCG/250 ML BAG IV CONT (16:28)
--- NOTE | 2025-09-04 16:30 | WPDINFPN2 ---
Progress Note: A&P Assessment and Plan (1) Fever and neutropenia: Code(s): D70.9 - Neutropenia, unspecified; R50.81 - Fever presenting with conditions classified elsewhere Status: Acute (2) Pneumonia: Code(s): J18.9 - Pneumonia, unspecified organism Status: Acute (3) Stomatitis and mucositis: Code(s): K12.1 - Other forms of stomatitis; K12.30 - Oral mucositis (ulcerative), unspecified Status: Acute (4) Candidal balano-posthitis: Code(s): B37.49 - Other urogenital candidiasis Status: Acute (5) Septic shock: Code(s): A41.9 - Sepsis, unspecified organism; R65.21 - Severe sepsis with septic shock Status: Acute (6) Encephalopathy: Code(s): G93.40 - Encephalopathy, unspecified Status: Acute (7) Metastatic malignant neoplasm to prostate: Code(s): C79.82 - Secondary malignant neoplasm of genital organs Status: Acute Plan # Post chemotherapy neutropenia without fever. -- neutropenia now resolved. # original admission with Possible left lung base pneumonia. -- originally placed on cefepime, azithromycin, and vancomycin. # Development of severe sepsis with shock. -- now associated with progressive respiratory disease including pleural effusions, pleural atelectasis, and bilateral pneumonitis. -- no longer neutropenic but the above may have been developing while initially neutropenic. -- pleural fluid cultures and repeat blood cultures are pending. Bronchoscopy cultures also pending. -- antibiotics have been broadened to Meropenem, vancomycin, and micafungin. # Post chemotherapy mucositis. # Balanitis. -- receiving fluconazole and local care. # Metastatic prostate cancer. Plan: -- continue broadened antibiotics including meropenem along with vancomycin. -- empirically broaden antifungal therapy by changing fluconazole to micafungin. -- await original and repeat blood cultures as well as pleural fluid And bronchoscopyculture. -- discussed with today's associate professor of criminal justice as well as patient's son and daughter. -- prognosis is guarded. Further recommendations to follow. Patient was seen via video telehealth consultation with the assistance of staff. Chart, data, and patient independently reviewed. Patient was located at [facility] while I was located in my [place] office. Received verbal consent from patient. Subjective Date/time seen: 09/04/25 16:30 Interval history: 09/02/2025: Patient seen today with son at bedside. Discussed with son. Afebrile with stable vital signs. Remains on 2 L per nasal cannula. White blood cell count increased to 5.0 with absolute neutrophil count 3.7. Blood cultures remain reported as pending. 09/03/2025: Neutropenia resolved with white blood cell count 8.3; however, Yesterday developed alteration in mental status, hypoxemia, and hypotension. Transferred to ICU and required intubation And pressors. CT performed 09/02 showed development of moderate loculated right pleural effusion and small left pleural effusion, patchy infiltrates bilaterally, mediastinal lymphadenopathy, and T9 changes suggestive of metastases. Follow-up CT performed this morning identified significant decrease in lung volumes with prominent dependent atelectasis including partial collapse of the bilateral lower lobes although superimposed pneumonia could not be excluded, no significant change in the small left and moderate size right pleural effusions, moderate amount of ascites in the upper abdomen, and again suggestion of T9 [id number] metastases. since transferred ICU antibiotics were broadened to include meropenem and vancomycin as well as continued fluconazole. Thoracentesis today described as sticky fluid with 179 white cells, 54 neutrophils, few white blood cells on Gram stain and no organisms. 09/04/2025: Patient has stabilized, somewhat, since yesterday. Afebrile and remains intubated on the ventilator at 30% with good FiO2. Lactate is normal. White blood cell count has increased to 18.5 but recently was receiving Neupogen. Only receiving norepinephrine which is being decreased. Current chest x-ray shows small bilateral pleural effusions, right greater than left, and associated atelectasis or pneumonia involving the right mid to lower lung randle as well as the left lower lung randle. Pleural fluid cultures remain pending. In addition a bronchoscopy was performed today with results also pending. Review of Systems Review of Systems: All systems reviewed & are unremarkable except as noted in HPI and below ROS unobtainable: Yes unobtainable due to endotracheal tube Exam Narrative: Patient now intubated and continues with Norepinephrine and decreased concentration. He is sedated. No significant abdominal distention. No evidence of rash. Two peripheral IV sites are unremarkable, right upper chest Port-A-Cath site is unremarkable, and he maintains a Frost catheter. Patient's additional pramod and daughter at bedside. Objective Data Vital Signs Vital Signs: Vital Signs - 24 hr 09/03/25 17:00 09/03/25 17:22 09/03/25 17:45 Temperature 99.2 F Pulse Rate 91 90 100 Respiratory Rate 18 Blood Pressure 115/57 L 114/58 L Pulse Oximetry 100 99 Oxygen Delivery Mechanical Ventilation Fraction of Inspired Oxygen 30 09/03/25 17:51 09/03/25 18:00 09/03/25 18:12 Temperature Pulse Rate 89 90 90 Respiratory Rate 18 Blood Pressure 115/58 L 115/58 L Pulse Oximetry 100 Oxygen Delivery Fraction of Inspired Oxygen 09/03/25 18:12 09/03/25 18:13 09/03/25 18:40 Temperature Pulse Rate 93 91 93 Respiratory Rate 18 18 Blood Pressure 120/60 Pulse Oximetry Oxygen Delivery Fraction of Inspired Oxygen 09/03/25 18:45 09/03/25 19:00 09/03/25 19:15 Temperature Pulse Rate 91 91 91 Respiratory Rate 18 18 18 Blood Pressure 116/59 L 117/61 116/60 Pulse Oximetry 100 100 100 Oxygen Delivery Fraction of Inspired Oxygen 09/03/25 19:30 09/03/25 19:45 09/03/25 20:00 Temperature Pulse Rate 89 88 89 Respiratory Rate 18 18 Blood Pressure 119/67 116/61 118/61 Pulse Oximetry 100 100 Oxygen Delivery Fraction of Inspired Oxygen 09/03/25 20:00 09/03/25 20:00 09/03/25 20:00 Temperature 98.5 F Pulse Rate 89 89 89 Respiratory Rate 18 18 18 Blood Pressure 118/61 Pulse Oximetry 100 Oxygen Delivery Fraction of Inspired Oxygen 09/03/25 20:00 09/03/25 20:00 09/03/25 20:00 Temperature Pulse Rate 88 Respiratory Rate 18 Blood Pressure 118/61 Pulse Oximetry 100 100 Oxygen Delivery Mechanical Ventilation Fraction of Inspired Oxygen 30 30 09/03/25 20:00 09/03/25 20:15 09/03/25 20:30 Temperature Pulse Rate 88 89 90 Respiratory Rate 18 Blood Pressure 118/63 110/59 L Pulse Oximetry 100 Oxygen Delivery Fraction of Inspired Oxygen 09/03/25 20:32 09/03/25 20:35 09/03/25 20:41 Temperature Pulse Rate 94 88 88 Respiratory Rate 18 18 Blood Pressure 110/59 L Pulse Oximetry 97 99 Oxygen Delivery Mechanical Ventilation Fraction of Inspired Oxygen 30 09/03/25 20:45 09/03/25 20:46 09/03/25 21:00 Temperature Pulse Rate 91 89 88 Respiratory Rate 18 18 18 Blood Pressure 108/56 L 109/58 L Pulse Oximetry 100 99 Oxygen Delivery Fraction of Inspired Oxygen 09/03/25 21:15 09/03/25 21:20 09/03/25 21:20 Temperature Pulse Rate 89 88 88 Respiratory Rate 18 Blood Pressure 106/53 L 106/53 L 106/53 L Pulse Oximetry 99 Oxygen Delivery Fraction of Inspired Oxygen 09/03/25 21:30 09/03/25 21:45 09/03/25 22:00 Temperature Pulse Rate 89 89 88 Respiratory Rate 18 18 Blood Pressure 100/49 L 104/54 L Pulse Oximetry 99 100 Oxygen Delivery Fraction of Inspired Oxygen 09/03/25 22:00 09/03/25 22:00 09/03/25 22:00 Temperature Pulse Rate 88 88 88 Respiratory Rate 18 18 Blood Pressure 104/54 L Pulse Oximetry Oxygen Delivery Fraction of Inspired Oxygen 09/03/25 22:00 09/03/25 22:15 09/03/25 22:30 Temperature Pulse Rate 88 87 88 Respiratory Rate 18 18 18 Blood Pressure 104/54 L 105/53 L 103/55 L Pulse Oximetry 100 100 100 Oxygen Delivery Fraction of Inspired Oxygen 09/03/25 22:45 09/03/25 23:00 09/03/25 23:15 Temperature Pulse Rate 86 86 85 Respiratory Rate 18 18 18 Blood Pressure 103/54 L 104/55 L 103/55 L Pulse Oximetry 100 100 100 Oxygen Delivery Fraction of Inspired Oxygen 09/03/25 23:15 09/03/25 23:30 09/03/25 23:45 Temperature Pulse Rate 84 87 84 Respiratory Rate 18 18 Blood Pressure 104/55 L 107/55 L Pulse Oximetry 100 100 100 Oxygen Delivery Mechanical Ventilation Fraction of Inspired Oxygen 30 09/04/25 00:00 09/04/25 00:00 09/04/25 00:00 Temperature Pulse Rate 85 85 85 Respiratory Rate 18 18 Blood Pressure 106/55 L Pulse Oximetry Oxygen Delivery Fraction of Inspired Oxygen 09/04/25 00:00 09/04/25 00:00 09/04/25 00:00 Temperature Pulse Rate 87 Respiratory Rate Blood Pressure Pulse Oximetry 100 Oxygen Delivery Mechanical Ventilation Fraction of Inspired Oxygen 30 30 09/04/25 00:00 09/04/25 00:15 09/04/25 00:30 Temperature 97.8 F Pulse Rate 85 85 84 Respiratory Rate 18 18 18 Blood Pressure 106/55 L 105/57 L 103/53 L Pulse Oximetry 100 100 100 Oxygen Delivery Fraction of Inspired Oxygen 09/04/25 00:45 09/04/25 01:01 09/04/25 01:16 Temperature Pulse Rate 82 85 86 Respiratory Rate 18 18 18 Blood Pressure 102/54 L 103/57 L 105/55 L Pulse Oximetry 100 100 100 Oxygen Delivery Fraction of Inspired Oxygen 09/04/25 01:31 09/04/25 01:46 09/04/25 02:00 Temperature Pulse Rate 82 83 84 Respiratory Rate 18 18 Blood Pressure 106/56 L 105/56 L 108/57 L Pulse Oximetry 100 100 Oxygen Delivery Fraction of Inspired Oxygen 09/04/25 02:00 09/04/25 02:00 09/04/25 02:00 Temperature Pulse Rate 84 87 87 Respiratory Rate 18 18 Blood Pressure Pulse Oximetry Oxygen Delivery Fraction of Inspired Oxygen 09/04/25 02:01 09/04/25 02:16 09/04/25 02:25 Temperature Pulse Rate 84 81 80 Respiratory Rate 18 18 Blood Pressure 108/57 L 102/55 L Pulse Oximetry 100 100 100 Oxygen Delivery Mechanical Ventilation Fraction of Inspired Oxygen 30 09/04/25 02:26 09/04/25 02:31 09/04/25 02:32 Temperature Pulse Rate 80 82 82 Respiratory Rate 18 18 18 Blood Pressure 103/54 L Pulse Oximetry 100 Oxygen Delivery Fraction of Inspired Oxygen 09/04/25 02:46 09/04/25 03:01 09/04/25 03:16 Temperature Pulse Rate 86 87 89 Respiratory Rate 18 18 18 Blood Pressure 98/51 L 100/50 L 101/53 L Pulse Oximetry 100 100 100 Oxygen Delivery Fraction of Inspired Oxygen 09/04/25 03:31 09/04/25 03:46 09/04/25 04:00 Temperature Pulse Rate 89 87 87 Respiratory Rate 18 18 Blood Pressure 101/52 L 101/58 L 101/53 L Pulse Oximetry 100 100 Oxygen Delivery Fraction of Inspired Oxygen 09/04/25 04:00 09/04/25 04:00 09/04/25 04:00 Temperature Pulse Rate 87 87 Respiratory Rate 18 18 Blood Pressure Pulse Oximetry 100 Oxygen Delivery Mechanical Ventilation Fraction of Inspired Oxygen 30 09/04/25 04:00 09/04/25 04:00 09/04/25 04:01 Temperature 96.9 F L Pulse Rate 87 87 Respiratory Rate 18 Blood Pressure 101/53 L Pulse Oximetry 100 Oxygen Delivery Fraction of Inspired Oxygen 30 09/04/25 05:04 09/04/25 05:16 09/04/25 06:00 Temperature Pulse Rate 85 88 85 Respiratory Rate 3 L Blood Pressure 107/60 Pulse Oximetry 100 100 Oxygen Delivery Mechanical Ventilation Fraction of Inspired Oxygen 30 09/04/25 06:00 09/04/25 06:00 09/04/25 06:00 Temperature Pulse Rate 85 85 85 Respiratory Rate 18 18 Blood Pressure 97/56 L Pulse Oximetry Oxygen Delivery Fraction of Inspired Oxygen 09/04/25 06:00 09/04/25 06:45 09/04/25 07:00 Temperature 96.6 F L 96.3 F L Pulse Rate 85 79 Respiratory Rate 18 18 Blood Pressure 97/56 L 103/55 L Pulse Oximetry 100 100 Oxygen Delivery Fraction of Inspired Oxygen 09/04/25 07:00 09/04/25 07:15 09/04/25 07:30 Temperature Pulse Rate 82 80 82 Respiratory Rate 18 18 18 Blood Pressure 110/57 L 109/60 109/57 L Pulse Oximetry 100 100 100 Oxygen Delivery Fraction of Inspired Oxygen 09/04/25 07:52 09/04/25 07:54 09/04/25 07:59 Temperature Pulse Rate 82 83 84 Respiratory Rate 18 18 Blood Pressure Pulse Oximetry 100 Oxygen Delivery Mechanical Ventilation Fraction of Inspired Oxygen 30 09/04/25 08:00 09/04/25 08:00 09/04/25 08:00 Temperature 97.2 F L Pulse Rate 90 92 Respiratory Rate 18 Blood Pressure 108/58 L 109/58 L Pulse Oximetry 100 Oxygen Delivery Fraction of Inspired Oxygen 30 09/04/25 08:00 09/04/25 08:00 09/04/25 08:00 Temperature Pulse Rate 91 85 Respiratory Rate 18 Blood Pressure Pulse Oximetry 96 Oxygen Delivery Mechanical Ventilation Fraction of Inspired Oxygen 30 09/04/25 08:41 09/04/25 09:00 09/04/25 10:00 Temperature 98.8 F Pulse Rate 92 92 92 Respiratory Rate 18 18 Blood Pressure 100/50 L 98/51 L Pulse Oximetry 97 Oxygen Delivery Fraction of Inspired Oxygen 09/04/25 10:00 09/04/25 10:00 09/04/25 10:15 Temperature 99.5 F Pulse Rate 91 90 91 Respiratory Rate 18 Blood Pressure 98/51 L Pulse Oximetry 99 100 Oxygen Delivery Mechanical Ventilation Fraction of Inspired Oxygen 30 09/04/25 10:23 09/04/25 10:23 09/04/25 10:56 Temperature 99.5 F Pulse Rate 93 92 92 Respiratory Rate 18 18 18 Blood Pressure 101/53 L Pulse Oximetry 99 Oxygen Delivery Fraction of Inspired Oxygen 09/04/25 12:00 09/04/25 12:00 09/04/25 12:00 Temperature 99.6 F Pulse Rate 88 Respiratory Rate 18 Blood Pressure 100/52 L Pulse Oximetry 99 99 Oxygen Delivery Mechanical Ventilation Fraction of Inspired Oxygen 30 30 09/04/25 12:00 09/04/25 12:05 09/04/25 12:06 Temperature Pulse Rate 89 87 89 Respiratory Rate 18 18 Blood Pressure Pulse Oximetry Oxygen Delivery Fraction of Inspired Oxygen 09/04/25 12:07 09/04/25 13:00 09/04/25 13:47 Temperature 99.2 F Pulse Rate 89 85 83 Respiratory Rate 18 Blood Pressure 101/55 L 102/51 L Pulse Oximetry 99 Oxygen Delivery Fraction of Inspired Oxygen 09/04/25 14:00 09/04/25 14:00 09/04/25 14:04 Temperature Pulse Rate 86 90 82 Respiratory Rate 18 Blood Pressure 106/54 L 106/54 L Pulse Oximetry 99 100 Oxygen Delivery Mechanical Ventilation Fraction of Inspired Oxygen 30 09/04/25 14:04 09/04/25 14:15 09/04/25 14:25 Temperature Pulse Rate 82 85 78 Respiratory Rate 18 18 18 Blood Pressure Pulse Oximetry Oxygen Delivery Fraction of Inspired Oxygen 09/04/25 14:26 09/04/25 15:00 09/04/25 16:00 Temperature 99.1 F Pulse Rate 88 100 94 Respiratory Rate 18 18 18 Blood Pressure 113/58 L 117/62 Pulse Oximetry 99 99 Oxygen Delivery Fraction of Inspired Oxygen 09/04/25 16:00 09/04/25 16:00 09/04/25 16:06 Temperature Pulse Rate 92 Respiratory Rate Blood Pressure 117/62 Pulse Oximetry 99 Oxygen Delivery Mechanical Ventilation Fraction of Inspired Oxygen 30 30 09/04/25 16:07 09/04/25 16:08 Temperature Pulse Rate 90 89 Respiratory Rate 18 18 Blood Pressure Pulse Oximetry Oxygen Delivery Fraction of Inspired Oxygen Intake/Output Intake/Output: Intake & Output 09/01/25 09/02/25 09/03/25 09/04/25 23:59 23:59 23:59 23:59 Intake Total 2812 590 2523.0 455.1 Output Total 551 500 800 225 Balance 2261 90 1723.0 230.1 Meds/Results Medications: Active Medications Generic Name Dose Route Start Last Admin Trade Name Freq PRN Reason Stop Dose Admin Acetaminophen 650 mg 08/30/25 10:58 Acetaminophen 325 Mg Tablet PO Q4H PRN Mild Pain (1-3) or Fever Albuterol/Ipratropium 3 ml 09/01/25 08:55 09/04/25 14:03 Ipratropium 0.5 Mg/Albuterol Sulfate 2.5 Mg (Base) Ampul.Neb 3 Ml INHALATION 3 ml Q6HRT DARIEN Administration Lidocaine HCl 30 ml/ Al Hydrox 0 ml 08/30/25 17:00 09/03/25 07:00 /Mg Hydrox/Simethicone 30 ml/ PO Not Given Diphenhydramine HCl 75 mg Q4HWA DARIEN On Hold: 09/03/25 07:00 Dextrose 12.5 gm 09/03/25 10:06 Dextrose 50% 25 Gm/50 Ml Syringe IV PUSH PRN PRN Hypoglycemia Protocol Fenofibrate 145 mg 09/01/25 09:00 09/04/25 08:43 Fenofibrate 145 Mg Tablet PO Not Given QAM DARIEN Glucagon 1 mg 09/03/25 10:06 Glucagon For Inj 1 Mg Vial IM PRN PRN Hypoglycemia Protocol Glucose 15 gm 09/03/25 10:06 Glucose Oral Gel 15 Gm Of Glucse In 37.5 Gm Tube PO PRN PRN Hypoglycemia Protocol Heparin Sodium (Beef Lung) 50 units 09/03/25 09:00 09/04/25 08:43 Heparin Flush 50 Units/5 Ml Syringe IV PUSH Not Given QAM DARIEN Heparin Sodium (Beef Lung) 50 units 09/03/25 07:03 Heparin Flush 50 Units/5 Ml Syringe IV PUSH PRN PRN after intermittent infusion Heparin Sodium (Beef Lung) 50 units 09/03/25 07:03 Heparin Flush 50 Units/5 Ml Syringe IV PUSH PRN PRN after blood draws Heparin Sodium (Porcine) 500 units 09/03/25 07:03 Heparin Sodium Lock Flush 500 Units/5 Ml Syringe IV PUSH PRN PRN see comments below Norepinephrine Bitartrate 8 mg in 250 mls @ 7.5 mls/hr 09/03/25 04:20 09/04/25 16:06 Levophed 8 Mg/D5w 250 Ml IV CONT 4 mcg/min .Q24H DARIEN 7.5 mls/hr Protocol Titration 4 MCG/MIN Fentanyl Citrate 2,500 mcg in 250 mls @ 2.5 mls/hr 09/03/25 04:40 09/04/25 16:07 Fentanyl 2,500 Mcg/Ns 250 Ml IV CONT 25 mcg/hr .Q72H DARIEN 2.5 mls/hr Protocol Titration 25 MCG/HR Vancomycin HCl 1,500 mg in 500 mls @ 250 mls/hr 09/03/25 07:00 09/04/25 07:12 Vancomycin 1,500 Mg/Ns 500 Ml IVPB 250 mls/hr Q12H DARIEN Administration Dextrose 1,000 mls @ 100 mls/hr 09/03/25 10:06 Dextrose 5% 1,000 Ml IVPB PRN PRN Hypoglycemia Protocol Meropenem 1 gm/ Sodium 100 mls @ 200 mls/hr 09/03/25 11:00 09/04/25 10:22 Chloride IVPB 200 mls/hr Q8H DARIEN Administration Midazolam HCl 100 mg in 100 mls @ 0 mls/hr 09/03/25 13:15 09/04/25 16:08 Versed 100 Mg/Ns 100 Ml IV CONT 0 mg/hr .Q0M DARIEN 0 mls/hr Protocol Titration 0 MG/HR Micafungin Sodium 100 mg/ 100 mls @ 100 mls/hr 09/03/25 14:00 09/04/25 14:38 Sodium Chloride IVPB 100 mls/hr Q24H DARIEN Administration Insulin Aspart 2 - 5 units 09/03/25 10:10 09/04/25 16:03 Insulin Aspart (*Bkc) 100 Units/Ml SUB-Q Not Given Q4HR DARIEN Protocol Lidocaine HCl 1 applic 08/30/25 20:34 08/31/25 09:34 Lidocaine 4% Soln 50 Ml Btl TOPICAL 1 applic PRN PRN Administration Pain Loratadine 10 mg 08/31/25 21:00 09/04/25 08:43 Loratadine 10 Mg Tablet PO [facility] [place] Metoprolol Succinate 25 mg 08/31/25 13:45 09/02/25 11:31 Metoprolol Succinate Ext Rel 25 Mg Tabcr PO Not Given On Hold: 09/03/25 03:09 QAM [facility] Multi-Ingred Cream/Lotion/Oil/Oint 1 applic 09/03/25 09:00 09/04/25 08:35 Mineral Oil/White Petrolatum Ointment EACH EYE 1 applic Q12HR DARIEN Administration Pantoprazole Sodium 40 mg 09/03/25 21:00 09/04/25 08:35 Pantoprazole Sodium Iv 40 Mg Vial IV PUSH 40 mg Q12HR DARIEN Administration Perflutren Lipid Microsphere 0 ml 09/02/25 13:55 Perflutren Lipid Microspheres 1.5 Ml Vial Diluted To 10 Ml Total Volume IV PUSH 09/05/25 13:55 ONCE PRN adequate visualization Protocol Sodium Chloride 10 ml 09/03/25 14:00 09/04/25 15:22 Central Line Flush IV PUSH 10 ml Q8HR DARIEN Administration Tamsulosin HCl 0.4 mg 09/01/25 09:00 09/04/25 08:43 Tamsulosin Hcl 0.4 Mg Capsule PO Not Given DAILY [facility] Vitamin D 125 mcg 09/01/25 09:00 09/04/25 08:43 Cholecalciferol (Vitamin D3) 125 Mcg (5,000 Units) Tablet PO Not Given DAILY [facility] Radiology Results: ITS Impressions Head CT 09/03/25 06:23 IMPRESSION: 1. No acute intracranial findings. Head/Neck CTA 09/03/25 06:30 IMPRESSION: CT HEAD: 1. No acute intracranial findings. CTA NECK: 1. Motion artifact along carotid bulbs. Stenosis or even dissection not excluded. Recommend carotid ultrasound. CTA HEAD: 1. No large vessel arterial occlusive disease or other acute findings. 2. No aneurysms. Chest CT 09/03/25 07:26 IMPRESSION: 1. Significant decrease in lung volumes with prominent dependent atelectasis including partial collapse of the bilateral lower lobes. Superimposed pneumonia not excludable. 2. No significant change in small left and moderate-sized right pleural effusions. 3. Moderate amount of ascites in the upper abdomen. 4. Scattered sclerotic bone lesions consistent with known metastatic prostate cancer and with chronic pathologic fracture at T10. Carotid Doppler Study 09/03/25 17:25 IMPRESSION: 1. >=70% (but less than near occlusion) stenosis in the right internal carotid artery. 2. >=70% (but less than near occlusion) stenosis in the left internal carotid artery. 3. The degree of stenosis indicated by the increased velocities is greater than would be expected given the amount of calcified atherosclerotic plaque evident on the prior CT angiogram. This suggests that the lower density linear filling defects at the bilateral carotid bulbs seen on the prior CT angiogram are not artifactual and likely to represent small dissection flaps. Abdomen X-Ray 09/04/25 07:07 IMPRESSION: 1: NG tube tip in the stomach. 2: Bibasilar airspace disease may represent edema or pneumonia. Chest X-Ray 09/04/25 07:18 IMPRESSION: 1. Small bilateral pleural effusions, right greater than left with associated atelectasis and/or pneumonia in the right mid to lower and left lower lung zones. Labs Labs: Laboratory Results - last 24 hr 09/03/25 09/03/25 09/03/25 05:44 05:45 20:21 WBC RBC Hgb Hct MCV MCH MCHC RDW Plt Count MPV Immature Gran % (Auto) Neut % (Auto) Lymph % (Auto) [place] % (Auto) Eos % (Auto) Baso % (Auto) Lymph # (Auto) [place] # (Auto) Eos # (Auto) Baso # (Auto) Abs Immat Gran (auto) Absolute Neuts (auto) Absolute Nucleated RBC Band Neutrophils % Nucleated RBC % Platelet Estimate Hypochromasia Anisocytosis Schistocytes PT INR APTT Puncture Site ABG pH ABG pCO2 ABG pO2 ABG PO2/FiO2 Ratio ABG HCO3 ABG O2 Saturation ABG O2 Content ABG Base Excess A-a Gradient Oxyhemoglobin Total Hemoglobin O2 Delivery Device O2 Liters/Min Minute Volume Vent Rate Vent Mode FiO2 Tidal Volume PEEP Peak Inspir Pressure Pressure Support Sodium Potassium Chloride Carbon Dioxide Anion Gap BUN Creatinine Estim Creat Clear Calc Estimated GFR Glucose POC Capillary Glucose 193 H Lactic Acid Calcium Phosphorus Magnesium Total Bilirubin AST ALT Alkaline Phosphatase Troponin I Total Protein Albumin TSH Fluid Total Protein 1.7 Fluid Albumin 1.2 Fluid LDH 92 Pleural Total Protein Cancelled Bronch Specimen Source Bronchial Fluid Color Bronchial Fluid Appearance Bronchial Neutrophils Bronchial Lymphocytes Bronchial Monocytes Bronchial Eosinophils Bronchial Macrophages Bronchial Other Cells 10/09/04/25 09/04/25 00:00 04:28 04:35 WBC RBC Hgb Hct MCV MCH MCHC RDW Plt Count MPV Immature Gran % (Auto) Neut % (Auto) Lymph % (Auto) [place] % (Auto) Eos % (Auto) Baso % (Auto) Lymph # (Auto) [place] # (Auto) Eos # (Auto) Baso # (Auto) Abs Immat Gran (auto) Absolute Neuts (auto) Absolute Nucleated RBC Band Neutrophils % Nucleated RBC % Platelet Estimate Hypochromasia Anisocytosis Schistocytes PT INR APTT Puncture Site Right brachial ABG pH 7.431 ABG pCO2 32.6 L ABG pO2 83.3 ABG PO2/FiO2 Ratio 2.78 ABG HCO3 21.2 L ABG O2 Saturation 96.6 ABG O2 Content 10.7 L ABG Base Excess -2.7 A-a Gradient 92.3 Oxyhemoglobin 95.3 Total Hemoglobin 7.9 L O2 Delivery Device Ventilator O2 Liters/Min Not Reportable Minute Volume Not Reportable Vent Rate 18 Vent Mode Cmv FiO2 30 Tidal Volume 400 PEEP 5 Peak Inspir Pressure Not Reportable Pressure Support Not Reportable Sodium Potassium Chloride Carbon Dioxide Anion Gap BUN Creatinine Estim Creat Clear Calc Estimated GFR Glucose POC Capillary Glucose 186 H 172 H Lactic Acid Calcium Phosphorus Magnesium Total Bilirubin AST ALT Alkaline Phosphatase Troponin I Total Protein Albumin TSH Fluid Total Protein Fluid Albumin Fluid LDH Pleural Total Protein Bronch Specimen Source Bronchial Fluid Color Bronchial Fluid Appearance Bronchial Neutrophils Bronchial Lymphocytes Bronchial Monocytes Bronchial Eosinophils Bronchial Macrophages Bronchial Other Cells 09/04/25 09/04/25 09/04/25 04:51 08:27 09:20 WBC 18.5 H RBC 2.38 L Hgb 7.3 L Hct 22.5 L MCV 94.5 MCH 30.7 MCHC 32.4 RDW 19.5 H Plt Count 176 MPV 10.9 H Immature Gran % (Auto) 4.1 H Neut % (Auto) 81.4 H Lymph % (Auto) 1.5 L [place] % (Auto) 12.6 H Eos % (Auto) 0.2 Baso % (Auto) 0.2 Lymph # (Auto) 0.27 L [place] # (Auto) 2.3 H Eos # (Auto) 0.0 Baso # (Auto) 0.0 Abs Immat Gran (auto) 0.75 H Absolute Neuts (auto) 15.1 H Absolute Nucleated RBC 0.230 H Band Neutrophils % Not Reportable Nucleated RBC % 1.2 H Platelet Estimate Adequate Hypochromasia 1+ Anisocytosis 1+ Schistocytes None seen PT 20.1 H INR 1.7 APTT 56.8 H Puncture Site ABG pH ABG pCO2 ABG pO2 ABG PO2/FiO2 Ratio ABG HCO3 ABG O2 Saturation ABG O2 Content ABG Base Excess A-a Gradient Oxyhemoglobin Total Hemoglobin O2 Delivery Device O2 Liters/Min Minute Volume Vent Rate Vent Mode FiO2 Tidal Volume PEEP Peak Inspir Pressure Pressure Support Sodium 138 Potassium 3.6 Chloride 107 Carbon Dioxide 23 Anion Gap 8 BUN 19 Creatinine 0.75 Estim Creat Clear Calc 71 Estimated GFR > 60 Glucose 166 H POC Capillary Glucose 165 H Lactic Acid 0.9 Calcium 7.6 L Phosphorus 1.5 L Magnesium 2.5 H Total Bilirubin 1.2 AST 37 ALT 12 Alkaline Phosphatase 68 Troponin I 0.411 H* Total Protein 5.0 L Albumin 3.3 L TSH 0.894 Fluid Total Protein Fluid Albumin Fluid LDH Pleural Total Protein Bronch Specimen Source Bronchial lavage Bronchial Fluid Color Bronchial Fluid Appearance Bronchial Neutrophils Bronchial Lymphocytes Bronchial Monocytes Bronchial Eosinophils Bronchial Macrophages Bronchial Other Cells 09/04/25 09/04/25 09/04/25 09:20 09:20 09:20 WBC RBC Hgb Hct MCV MCH MCHC RDW Plt Count MPV Immature Gran % (Auto) Neut % (Auto) Lymph % (Auto) [place] % (Auto) Eos % (Auto) Baso % (Auto) Lymph # (Auto) [place] # (Auto) Eos # (Auto) Baso # (Auto) Abs Immat Gran (auto) Absolute Neuts (auto) Absolute Nucleated RBC Band Neutrophils % Nucleated RBC % Platelet Estimate Hypochromasia Anisocytosis Schistocytes PT INR APTT Puncture Site ABG pH ABG pCO2 ABG pO2 ABG PO2/FiO2 Ratio ABG HCO3 ABG O2 Saturation ABG O2 Content ABG Base Excess A-a Gradient Oxyhemoglobin Total Hemoglobin O2 Delivery Device O2 Liters/Min Minute Volume Vent Rate Vent Mode FiO2 Tidal Volume PEEP Peak Inspir Pressure Pressure Support Sodium Potassium Chloride Carbon Dioxide Anion Gap BUN Creatinine Estim Creat Clear Calc Estimated GFR Glucose POC Capillary Glucose Lactic Acid Calcium Phosphorus Magnesium Total Bilirubin AST ALT Alkaline Phosphatase Troponin I Total Protein Albumin TSH Fluid Total Protein Fluid Albumin Fluid LDH Pleural Total Protein Bronch Specimen Source Cancelled Bronchial Fluid Color Colorless Cancelled Bronchial Fluid Appearance Cloudy Cancelled Bronchial Neutrophils 24 Bronchial Lymphocytes Bronchial Monocytes Bronchial Eosinophils Bronchial Macrophages Bronchial Other Cells 09/04/25 09/04/25 09/04/25 09:20 09:20 09:20 WBC RBC Hgb Hct MCV MCH MCHC RDW Plt Count MPV Immature Gran % (Auto) Neut % (Auto) Lymph % (Auto) [place] % (Auto) Eos % (Auto) Baso % (Auto) Lymph # (Auto) [place] # (Auto) Eos # (Auto) Baso # (Auto) Abs Immat Gran (auto) Absolute Neuts (auto) Absolute Nucleated RBC Band Neutrophils % Nucleated RBC % Platelet Estimate Hypochromasia Anisocytosis Schistocytes PT INR APTT Puncture Site ABG pH ABG pCO2 ABG pO2 ABG PO2/FiO2 Ratio ABG HCO3 ABG O2 Saturation ABG O2 Content ABG Base Excess A-a Gradient Oxyhemoglobin Total Hemoglobin O2 Delivery Device O2 Liters/Min Minute Volume Vent Rate Vent Mode FiO2 Tidal Volume PEEP Peak Inspir Pressure Pressure Support Sodium Potassium Chloride Carbon Dioxide Anion Gap BUN Creatinine Estim Creat Clear Calc Estimated GFR Glucose POC Capillary Glucose Lactic Acid Calcium Phosphorus Magnesium Total Bilirubin AST ALT Alkaline Phosphatase Troponin I Total Protein Albumin TSH Fluid Total Protein Fluid Albumin Fluid LDH Pleural Total Protein Bronch Specimen Source Bronchial Fluid Color Bronchial Fluid Appearance Bronchial Neutrophils Cancelled Bronchial Lymphocytes 37 Cancelled Bronchial Monocytes 9 Cancelled Bronchial Eosinophils 1 Bronchial Macrophages Bronchial Other Cells 09/04/25 09/04/25 09/04/25 09:20 09:20 09:20 WBC RBC Hgb Hct MCV MCH MCHC RDW Plt Count MPV Immature Gran % (Auto) Neut % (Auto) Lymph % (Auto) [place] % (Auto) Eos % (Auto) Baso % (Auto) Lymph # (Auto) [place] # (Auto) Eos # (Auto) Baso # (Auto) Abs Immat Gran (auto) Absolute Neuts (auto) Absolute Nucleated RBC Band Neutrophils % Nucleated RBC % Platelet Estimate Hypochromasia Anisocytosis Schistocytes PT INR APTT Puncture Site ABG pH ABG pCO2 ABG pO2 ABG PO2/FiO2 Ratio ABG HCO3 ABG O2 Saturation ABG O2 Content ABG Base Excess A-a Gradient Oxyhemoglobin Total Hemoglobin O2 Delivery Device O2 Liters/Min Minute Volume Vent Rate Vent Mode FiO2 Tidal Volume PEEP Peak Inspir Pressure Pressure Support Sodium Potassium Chloride Carbon Dioxide Anion Gap BUN Creatinine Estim Creat Clear Calc Estimated GFR Glucose POC Capillary Glucose Lactic Acid Calcium Phosphorus Magnesium Total Bilirubin AST ALT Alkaline Phosphatase Troponin I Total Protein Albumin TSH Fluid Total Protein Fluid Albumin Fluid LDH Pleural Total Protein Bronch Specimen Source Bronchial Fluid Color Bronchial Fluid Appearance Bronchial Neutrophils Bronchial Lymphocytes Bronchial Monocytes Bronchial Eosinophils Cancelled Bronchial Macrophages 6 Cancelled Bronchial Other Cells 23 Cancelled 09/04/25 09/04/25 11:59 16:00 WBC RBC Hgb Hct MCV MCH MCHC RDW Plt Count MPV Immature Gran % (Auto) Neut % (Auto) Lymph % (Auto) [place] % (Auto) Eos % (Auto) Baso % (Auto) Lymph # (Auto) [place] # (Auto) Eos # (Auto) Baso # (Auto) Abs Immat Gran (auto) Absolute Neuts (auto) Absolute Nucleated RBC Band Neutrophils % Nucleated RBC % Platelet Estimate Hypochromasia Anisocytosis Schistocytes PT INR APTT Puncture Site ABG pH ABG pCO2 ABG pO2 ABG PO2/FiO2 Ratio ABG HCO3 ABG O2 Saturation ABG O2 Content ABG Base Excess A-a Gradient Oxyhemoglobin Total Hemoglobin O2 Delivery Device O2 Liters/Min Minute Volume Vent Rate Vent Mode FiO2 Tidal Volume PEEP Peak Inspir Pressure Pressure Support Sodium Potassium Chloride Carbon Dioxide Anion Gap BUN Creatinine Estim Creat Clear Calc Estimated GFR Glucose POC Capillary Glucose 136 H 132 H Lactic Acid Calcium Phosphorus Magnesium Total Bilirubin AST ALT Alkaline Phosphatase Troponin I Total Protein Albumin TSH Fluid Total Protein Fluid Albumin Fluid LDH Pleural Total Protein Bronch Specimen Source Bronchial Fluid Color Bronchial Fluid Appearance Bronchial Neutrophils Bronchial Lymphocytes Bronchial Monocytes Bronchial Eosinophils Bronchial Macrophages Bronchial Other Cells
--- NOTE | 2025-09-04 17:26 | PC.NURSE ---
started tube feeds at 10ml/hr per Dr piers.
[2025-09-05] VITALS (60 sets, daily range): BP systolic 86–129; BP diastolic 50–81; PULSE 75–131; RESP 14–19; TEMP 36.7–37.4; O2SAT 96–100
[2025-09-05] MEDS: IPRATROPIUM 0.5 MG/ALBUTEROL SULFATE 2.5 MG (BASE) AMPUL.NEB 3 ML INHALATION ×4 (02:13→20:49)
[2025-09-05] MEDS: MEROPENEM 1 GM in SODIUM CHLORIDE 0.9% IV 100 ML 200 ML IVPB ×3 (03:39→18:03)
[2025-09-05] MEDS: CENTRAL LINE FLUSH 10 ML IV PUSH ×3 (04:57→21:43)
--- NOTE | 2025-09-05 04:59 | PC.NURSE ---
Levophed is currently on standby/hold. Bag is empty and will not allow me to chart under the titration that it is still on hold.
[2025-09-05 05:01] LABS: Alveolar/Arterial O2 Gradient 84.0 mmHg; Carboxyhemoglobin 1.1 % THb (0-2.0); Fractional Inspired Oxygen 30 %; HCO3 ABG 24.1 mEq/l (22.0-26.0); Methemoglobin ABG 0.1 %THb (0-1.5); Oxygen Content ABG 11.4 %vol (16.0-22.0); Oxygen Saturation ABG 97.6 % (95.0-100.0); PCO2 ABG 32.3 mmHg (35.0-45.0); PO2 ABG 92.0 mmHg (80.0-100.0); PO2 FiO2 Ratio Arterial Blood 3.07 %; Reduced Hemoglobin 2.7 %THb (0-5.0)
[2025-09-05 05:05] LABS: Arterial Blood Gas Ventilator rate 18 /MIN; Site Drawn LEFT RADIAL
[2025-09-05 05:06] LABS: Arterial Blood Gas Tidal Volume 400 ml
[2025-09-05] MEDS: VANCOMYCIN 1,500 MG/NS 500 ML 1,500 MG/500 ML BAG 250 MG IVPB ×2 (05:14→23:59)
[2025-09-05 05:38] LABS: Hematocrit 23.8 % (42.0-52.0); Hemoglobin 7.8 g/dL (14.0-18.0); Immature Granulocyte Percent A 6.5 % (0-0.5); Lymphocytes Absolute Auto 0.80 K/mm3 (0.9-3.2); Mean Corpuscular HGB Conc 32.8 g/dl (32-36); Mean Corpuscular Hemoglobin 31.3 pg (26-34); Mean Corpuscular Volume 95.6 fl (80-100); Nucleated Red Blood Cells Absolute Auto 0.280 K/mm3 (0.0-0.012); Nucleated Red Blood Cells Perc 1.5 % (0.0-0.2); Platelet Count Result 180 k/mm3 (150-375); Red Blood Count 2.49 M/mm3 (4.6-6.20); White Blood Count 19.1 K/mm3 (4.5-10.0)
[2025-09-05 05:53] LABS: Alanine Aminotransferase 15 U/L (6-50); Albumin Level 2.7 g/dL (3.5-5.1); Alkaline Phosphatase 86 U/L (38-126); Anion Gap 4 mmol/L (4-12); Aspartate Amino Transferase 62 U/L (17-59); Bilirubin,Total 0.8 mg/dL (0.2-1.3); Blood Urea Nitrogen 25 mg/dL (9-20); CRP 5.5 mg/dL (<1.0); Calcium 7.0 mg/dL (8.4-10.2); Carbon Dioxide 26 mmol/L (22-30); Chloride 109 mmol/L (98-107); Estimated CRCL calculation 65 ml/min; Estimated Glomerular Filt Rate > 60; Glucose 100 mg/dL (65-110); Magnesium 2.4 mg/dL (1.6-2.3); Potassium 4.1 mmol/L (3.4-5.0); Sodium 139 mmol/L (137-145); Total Protein 4.4 g/dL (6.3-8.2)
[2025-09-05 05:54] LABS: INR 1.6; Prothrombin Time 19.4 Seconds (11.1-14.7)
[2025-09-05 05:55] LABS: Partial Thromboplastin Time 44.9 Seconds (22.3-36.8)
[2025-09-05 06:20] LABS: Anisocytosis 2+; Hypochromasia 1+; Schistocytes None Seen
--- NOTE | 2025-09-05 08:41 | P.PNIM_ITS ---
Progress Note: A&P Assessment and Plan (1) Septic shock: Code(s): A41.9 - Sepsis, unspecified organism; R65.21 - Severe sepsis with septic shock Status: Acute Assessment and Plan: 09/03/2025: Patient was transferred from medical floor to ICU where he was intubated, found to be hypotensive, received albumin -and IV fluid bolus, started on Levophed -patient does have a port, will use that for the pressors -wean Levophed to maintain mean arterial MAP > 65 mmHg, SBP > 100 mmHg -patient was on azithromycin, cefepime and vancomycin per Infectious Disease -09/03: Switch cefepime to meropenem, also discussed with Infectious Disease and micafungin was added -currently on meropenem, vancomycin micafungin, (completed a course of azithromycin) -micafungin for balanitis per Infectious Disease -08/30: Blood cultures negative x2 -09/03: Blood cultures obtained and pending (2) Acute respiratory failure: Code(s): J96.00 - Acute respiratory failure, unspecified whether with hypoxia or hypercapnia Status: Acute Assessment and Plan: Patient is transferred from medical floor after being found hypoxic, hypotensive and less responsive/altered mental status -increasing O2 requirements on Airvo -09/03: Patient was intubated by ER physician in the ICU -currently on CMV mode of ventilation, peep of 5, 35% FiO2. -ABGs, chest x-ray and CT chest reviewed. -continue bronchodilator -09/03: Status post right thoracentesis this by ER physician, drained 600 mL yellow sticky fluid 09/03/2025: CT chest with contrast -IMPRESSION: 1. Significant decrease in lung volumes with prominent dependent atelectasis including partial collapse of the bilateral lower lobes. Superimposed pneumonia not excludable. 2. No significant change in small left and moderate-sized right pleural effusions. 3. Moderate amount of ascites in the upper abdomen. 4. Scattered sclerotic bone lesions consistent with known metastatic prostate cancer and with chronic pathologic fracture at T10. 09/02: IMPRESSION: Moderate loculated right pleural effusion and small left pleural effusion. Patchy infiltrates are present bilaterally. There is mediastinal lymphadenopathy. Sclerotic changes within the T9 vertebral body suggestive of metastasis. (3) Pleural effusion: Code(s): J90 - Pleural effusion, not elsewhere classified Status: Acute Assessment and Plan: 09/03: Thoracentesis perform a ER physician early hours with a removal of 600 mL in yellow sticky fluid -pleural fluid LDH, protein are pending, -fluid gram stain did not show any organism -according the hospitalist, pleural fluid looked like an exudate. Will confirm with pleural fluid studies -continue antibiotics as above (4) Pneumonia: Code(s): J18.9 - Pneumonia, unspecified organism Status: Acute Assessment and Plan: Consolidation noted on CT scan of the chest -continue antibiotics as above -appreciate pulmonology evaluation and recommendations, thoracentesis scheduled for today, 09/04 (5) Encephalopathy: Code(s): G93.40 - Encephalopathy, unspecified Status: Acute Assessment and Plan: Encephalopathy could be multifactorial, septic shock, hypotension, hypoxia -currently intubated, not on any sedation. -will maintain Euthermia, adequate blood pressures, adequate oxygenation -09/03: patient did wake up and follows simple commands IMPRESSION: CT HEAD: 1. No acute intracranial findings. CTA NECK: 1. Motion artifact along carotid bulbs. Stenosis or even dissection not excluded. Recommend carotid ultrasound. CTA HEAD: 1. No large vessel arterial occlusive disease or other acute findings. 2. No aneurysms. (6) Coagulopathy: Code(s): D68.9 - Coagulation defect, unspecified Status: Acute Assessment and Plan: PTT elevated, continue to monitor, patient not on any anticoagulation at this time (7) Anemia: Code(s): D64.9 - Anemia, unspecified Status: Acute Assessment and Plan: 09/03: Hemoglobin dropped to 6.9 this morning from 7.5. Transfused 1 unit of packed RBCs -monitor H&H (8) Protein calorie malnutrition: Code(s): E46 - Unspecified protein-calorie malnutrition Status: Acute Assessment and Plan: Protein calorie malnutrition, BMI of 23.6 -likely moderate protein calorie malnutrition -will start trickle tube feeds -phosphorus was repleted (9) Metastatic malignant neoplasm to prostate: Code(s): C79.82 - Secondary malignant neoplasm of genital organs Status: Acute Assessment and Plan: Patient has metastatic prostate cancer, being treated by Dr. Walsh with palliative chemotherapy (10) Candidal balano-posthitis: Code(s): B37.49 - Other urogenital candidiasis Status: Acute Assessment and Plan: Continue micafungin (11) COPD (chronic obstructive pulmonary disease): Code(s): J44.9 - Chronic obstructive pulmonary disease, unspecified Status: Acute Assessment and Plan: Continue DuoNebs, on mechanical ventilation Subjective Date/time seen: 09/05/25 08:41 Interval history: Patient is responding to verbal stimuli. Still intubated. Review of Systems Review of Systems: Other systems are reviewed and negative except as noted in history above. ROS unobtainable: Yes unobtainable due to endotracheal tube, unobtainable due to medical condition and unobtainable due to mental status Exam Narrative: General: Ill-appearing elderly patient, intubated HEENT:? Pupils equal and reactive bilaterally. Sclera is clear, eyes are sunken, ETT in place Neck:? Supple Respiratory:? Coarse breath sounds bilaterally, rales auscultated bilaterally, no wheezing, adequate air entry otherwise Cardiac:? S1-S2 is normal, regular rate and rhythm Abdomen: Soft, nontender, non distended, hypoactive bowel sounds Extremities:? No edema, palpable pedal pulse Neuro:? Intubated, on sedation, does not open his eyes or follow simple commands, withdraws to pain stimulus Skin:? Skin tears noted on the feet bilaterally, Psych:? Unable to assess at this time Objective Data Vital Signs Vital Signs: Vital Signs - 24 hr 09/04/25 09:00 09/04/25 09:00 09/04/25 09:49 Temperature 98.8 F Pulse Rate 92 88 91 Respiratory Rate 18 18 18 Blood Pressure 100/50 L 102/55 L Pulse Oximetry 97 99 97 Oxygen Delivery Fraction of Inspired Oxygen 09/04/25 10:00 09/04/25 10:00 09/04/25 10:00 Temperature 99.5 F Pulse Rate 92 91 90 Respiratory Rate 18 Blood Pressure 98/51 L 98/51 L Pulse Oximetry 99 Oxygen Delivery Fraction of Inspired Oxygen 09/04/25 10:07 09/04/25 10:15 09/04/25 10:23 Temperature Pulse Rate 93 91 93 Respiratory Rate 18 18 Blood Pressure Pulse Oximetry 98 100 Oxygen Delivery Mechanical Ventilation Fraction of Inspired Oxygen 30 09/04/25 10:23 09/04/25 10:56 09/04/25 10:58 Temperature 99.5 F Pulse Rate 92 92 92 Respiratory Rate 18 18 18 Blood Pressure 101/53 L Pulse Oximetry 99 99 Oxygen Delivery Fraction of Inspired Oxygen 09/04/25 11:00 09/04/25 11:01 09/04/25 11:15 Temperature Pulse Rate 90 90 91 Respiratory Rate 18 18 18 Blood Pressure 102/54 L 101/55 L Pulse Oximetry 99 99 99 Oxygen Delivery Fraction of Inspired Oxygen 09/04/25 11:31 09/04/25 11:50 09/04/25 12:00 Temperature Pulse Rate 89 89 Respiratory Rate 18 18 Blood Pressure Pulse Oximetry 100 99 99 Oxygen Delivery Mechanical Ventilation Fraction of Inspired Oxygen 30 09/04/25 12:00 09/04/25 12:00 09/04/25 12:00 Temperature 99.6 F Pulse Rate 88 89 Respiratory Rate 18 Blood Pressure 100/52 L Pulse Oximetry 99 Oxygen Delivery Fraction of Inspired Oxygen 30 09/04/25 12:05 09/04/25 12:06 09/04/25 12:07 Temperature Pulse Rate 87 89 89 Respiratory Rate 18 18 Blood Pressure 101/55 L Pulse Oximetry Oxygen Delivery Fraction of Inspired Oxygen 09/04/25 12:17 09/04/25 12:41 09/04/25 12:45 Temperature Pulse Rate 86 87 85 Respiratory Rate 18 0 L Blood Pressure 103/52 L Pulse Oximetry 99 98 Oxygen Delivery Fraction of Inspired Oxygen 09/04/25 12:46 09/04/25 13:00 09/04/25 13:47 Temperature 99.2 F Pulse Rate 85 85 83 Respiratory Rate 6 L 18 Blood Pressure 102/51 L Pulse Oximetry 98 99 Oxygen Delivery Fraction of Inspired Oxygen 09/04/25 14:00 09/04/25 14:00 09/04/25 14:04 Temperature 99.1 F Pulse Rate 86 90 82 Respiratory Rate 18 Blood Pressure 106/54 L 106/54 L Pulse Oximetry 99 100 Oxygen Delivery Mechanical Ventilation Fraction of Inspired Oxygen 30 09/04/25 14:04 09/04/25 14:15 09/04/25 14:25 Temperature Pulse Rate 82 85 78 Respiratory Rate 18 18 18 Blood Pressure Pulse Oximetry Oxygen Delivery Fraction of Inspired Oxygen 09/04/25 14:26 09/04/25 14:42 09/04/25 15:00 Temperature Pulse Rate 88 95 100 Respiratory Rate 18 13 18 Blood Pressure 113/58 L Pulse Oximetry 98 99 Oxygen Delivery Fraction of Inspired Oxygen 09/04/25 15:16 09/04/25 15:50 09/04/25 16:00 Temperature 99.1 F Pulse Rate 99 96 94 Respiratory Rate 9 L 8 L 18 Blood Pressure 117/62 Pulse Oximetry 99 99 99 Oxygen Delivery Fraction of Inspired Oxygen 09/04/25 16:00 09/04/25 16:00 09/04/25 16:00 Temperature Pulse Rate 92 Respiratory Rate Blood Pressure Pulse Oximetry 99 Oxygen Delivery Mechanical Ventilation Fraction of Inspired Oxygen 30 30 09/04/25 16:06 09/04/25 16:07 09/04/25 16:08 Temperature Pulse Rate 92 90 89 Respiratory Rate 18 18 Blood Pressure 117/62 Pulse Oximetry Oxygen Delivery Fraction of Inspired Oxygen 09/04/25 16:28 09/04/25 16:28 09/04/25 16:34 Temperature Pulse Rate 86 86 89 Respiratory Rate 18 18 18 Blood Pressure Pulse Oximetry 99 Oxygen Delivery Fraction of Inspired Oxygen 09/04/25 17:00 09/04/25 17:00 09/04/25 17:05 Temperature Pulse Rate 86 85 86 Respiratory Rate 18 13 11 L Blood Pressure 110/58 L 110/58 L Pulse Oximetry 99 99 99 Oxygen Delivery Fraction of Inspired Oxygen 09/04/25 17:16 09/04/25 17:30 09/04/25 17:31 Temperature Pulse Rate 84 84 84 Respiratory Rate 18 18 16 Blood Pressure 110/60 Pulse Oximetry 99 99 99 Oxygen Delivery Fraction of Inspired Oxygen 09/04/25 17:45 09/04/25 17:46 09/04/25 17:56 Temperature Pulse Rate 83 85 96 Respiratory Rate 0 L 0 L Blood Pressure 112/60 Pulse Oximetry 99 99 100 Oxygen Delivery Mechanical Ventilation Fraction of Inspired Oxygen 30 09/04/25 18:00 09/04/25 18:00 09/04/25 18:00 Temperature 99.1 F Pulse Rate 88 88 102 H Respiratory Rate 18 21 H Blood Pressure 98/53 L Pulse Oximetry 98 93 Oxygen Delivery Fraction of Inspired Oxygen 09/04/25 18:01 09/04/25 18:02 09/04/25 18:03 Temperature Pulse Rate 91 100 89 Respiratory Rate 18 18 18 Blood Pressure 141/127 H 98/53 L Pulse Oximetry 98 Oxygen Delivery Fraction of Inspired Oxygen 09/04/25 18:05 09/04/25 18:06 09/04/25 18:15 Temperature Pulse Rate 88 89 89 Respiratory Rate 18 18 Blood Pressure 98/53 L 117/63 Pulse Oximetry 99 Oxygen Delivery Fraction of Inspired Oxygen 09/04/25 18:21 09/04/25 18:30 09/04/25 18:31 Temperature Pulse Rate 84 86 85 Respiratory Rate 7 L 18 18 Blood Pressure 118/60 Pulse Oximetry 99 99 99 Oxygen Delivery Fraction of Inspired Oxygen 09/04/25 18:45 09/04/25 18:46 09/04/25 19:00 Temperature Pulse Rate 84 84 85 Respiratory Rate 0 L 0 L 12 Blood Pressure 114/59 L 114/60 Pulse Oximetry 99 99 99 Oxygen Delivery Fraction of Inspired Oxygen 09/04/25 19:01 09/04/25 19:25 09/04/25 19:30 Temperature Pulse Rate 84 85 110 H Respiratory Rate 44 H 18 0 L Blood Pressure Pulse Oximetry 100 99 98 Oxygen Delivery Fraction of Inspired Oxygen 09/04/25 19:31 09/04/25 19:36 09/04/25 19:45 Temperature 98.0 F Pulse Rate 98 91 Respiratory Rate 0 L 13 Blood Pressure 124/65 Pulse Oximetry 98 98 Oxygen Delivery Fraction of Inspired Oxygen 09/04/25 19:46 09/04/25 20:00 09/04/25 20:00 Temperature Pulse Rate 85 82 Respiratory Rate 0 L Blood Pressure 111/58 L Pulse Oximetry 98 98 99 Oxygen Delivery Mechanical Ventilation Fraction of Inspired Oxygen 30 09/04/25 20:00 09/04/25 20:00 09/04/25 20:00 Temperature Pulse Rate 83 84 Respiratory Rate Blood Pressure 114/62 Pulse Oximetry Oxygen Delivery Fraction of Inspired Oxygen 30 09/04/25 20:00 09/04/25 20:00 09/04/25 20:01 Temperature Pulse Rate 83 88 83 Respiratory Rate 18 18 Blood Pressure 112/58 L Pulse Oximetry 98 Oxygen Delivery Fraction of Inspired Oxygen 09/04/25 20:02 09/04/25 20:07 09/04/25 20:16 Temperature Pulse Rate 81 94 84 Respiratory Rate 9 L 5 L Blood Pressure 112/63 Pulse Oximetry 98 100 100 Oxygen Delivery Mechanical Ventilation Fraction of Inspired Oxygen 30 09/04/25 20:25 09/04/25 20:31 09/04/25 20:46 Temperature 99.2 F Pulse Rate 89 85 Respiratory Rate 14 Blood Pressure 117/59 L 112/60 Pulse Oximetry 99 98 Oxygen Delivery Fraction of Inspired Oxygen 09/04/25 21:00 09/04/25 21:01 09/04/25 21:02 Temperature 99.2 F Pulse Rate 80 84 Respiratory Rate 0 L 0 L 16 Blood Pressure 112/62 Pulse Oximetry 98 99 Oxygen Delivery Fraction of Inspired Oxygen 09/04/25 21:02 09/04/25 21:31 09/04/25 21:32 Temperature Pulse Rate 85 84 90 Respiratory Rate 5 L 6 L Blood Pressure 114/62 Pulse Oximetry 98 99 99 Oxygen Delivery Fraction of Inspired Oxygen 09/04/25 22:00 09/04/25 22:00 09/04/25 22:00 Temperature Pulse Rate 85 78 78 Respiratory Rate 12 18 Blood Pressure 105/57 L Pulse Oximetry 99 Oxygen Delivery Fraction of Inspired Oxygen 09/04/25 22:00 09/04/25 22:01 09/04/25 22:01 Temperature 99.2 F Pulse Rate 97 97 Respiratory Rate 14 14 Blood Pressure 110/62 Pulse Oximetry 99 Oxygen Delivery Fraction of Inspired Oxygen 09/04/25 22:02 09/04/25 22:31 09/04/25 22:46 Temperature Pulse Rate 92 88 79 Respiratory Rate 12 16 18 Blood Pressure 121/62 105/57 L Pulse Oximetry 99 99 98 Oxygen Delivery Fraction of Inspired Oxygen 09/04/25 22:47 09/04/25 22:54 09/04/25 22:54 Temperature Pulse Rate 81 89 89 Respiratory Rate 18 18 Blood Pressure Pulse Oximetry 98 100 Oxygen Delivery Mechanical Ventilation Fraction of Inspired Oxygen 30 09/04/25 22:56 09/04/25 23:00 09/04/25 23:00 Temperature 99.3 F Pulse Rate 81 91 Respiratory Rate 18 18 Blood Pressure 104/53 L Pulse Oximetry 98 Oxygen Delivery Fraction of Inspired Oxygen 09/04/25 23:00 09/04/25 23:01 09/05/25 00:00 Temperature 99.4 F Pulse Rate 83 82 87 Respiratory Rate 18 18 18 Blood Pressure 108/56 L 102/53 L Pulse Oximetry 98 98 98 Oxygen Delivery Fraction of Inspired Oxygen 09/05/25 00:00 09/05/25 00:00 09/05/25 00:00 Temperature Pulse Rate 91 Respiratory Rate Blood Pressure 104/53 L Pulse Oximetry 98 Oxygen Delivery Mechanical Ventilation Fraction of Inspired Oxygen 30 30 09/05/25 00:00 09/05/25 00:00 09/05/25 00:00 Temperature Pulse Rate 91 91 91 Respiratory Rate 18 18 Blood Pressure Pulse Oximetry Oxygen Delivery Fraction of Inspired Oxygen 09/05/25 00:03 09/05/25 01:00 09/05/25 02:00 Temperature Pulse Rate 90 81 79 Respiratory Rate 18 18 Blood Pressure 96/53 L Pulse Oximetry 98 98 Oxygen Delivery Fraction of Inspired Oxygen 09/05/25 02:00 09/05/25 02:00 09/05/25 02:00 Temperature Pulse Rate 80 80 80 Respiratory Rate 18 18 Blood Pressure 95/52 L Pulse Oximetry Oxygen Delivery Fraction of Inspired Oxygen 09/05/25 02:01 09/05/25 02:14 09/05/25 02:14 Temperature Pulse Rate 78 77 77 Respiratory Rate 18 18 Blood Pressure 94/52 L Pulse Oximetry 99 99 Oxygen Delivery Mechanical Ventilation Fraction of Inspired Oxygen 30 09/05/25 02:23 09/05/25 02:23 09/05/25 03:00 Temperature 99.4 F Pulse Rate 78 80 Respiratory Rate 18 18 Blood Pressure 95/52 L Pulse Oximetry 98 Oxygen Delivery Fraction of Inspired Oxygen 09/05/25 04:00 09/05/25 04:00 09/05/25 04:00 Temperature Pulse Rate 80 Respiratory Rate Blood Pressure Pulse Oximetry 98 Oxygen Delivery Mechanical Ventilation Fraction of Inspired Oxygen 30 30 09/05/25 04:00 09/05/25 04:00 09/05/25 04:00 Temperature 99.1 F Pulse Rate 78 78 78 Respiratory Rate 18 18 18 Blood Pressure 93/51 L Pulse Oximetry 99 Oxygen Delivery Fraction of Inspired Oxygen 09/05/25 04:55 09/05/25 05:00 09/05/25 05:37 Temperature Pulse Rate 77 79 77 Respiratory Rate 18 Blood Pressure 90/51 L Pulse Oximetry 99 99 Oxygen Delivery Mechanical Ventilation Fraction of Inspired Oxygen 30 09/05/25 06:00 09/05/25 06:00 09/05/25 06:00 Temperature 98.2 F Pulse Rate 97 93 93 Respiratory Rate 18 18 18 Blood Pressure 99/58 L Pulse Oximetry 100 Oxygen Delivery Fraction of Inspired Oxygen 09/05/25 07:00 09/05/25 08:00 09/05/25 08:00 Temperature Pulse Rate 93 78 78 Respiratory Rate 18 18 18 Blood Pressure 102/58 L Pulse Oximetry 100 Oxygen Delivery Fraction of Inspired Oxygen 09/05/25 08:16 09/05/25 08:16 Temperature Pulse Rate 75 75 Respiratory Rate 18 18 Blood Pressure Pulse Oximetry Oxygen Delivery Fraction of Inspired Oxygen Intake/Output Intake/Output: Intake & Output 09/02/25 09/03/25 09/04/25 09/05/25 23:59 23:59 23:59 23:59 Intake Total 590 2523.0 824.3 167.1 Output Total 500 800 450 275 Balance 90 1723.0 374.3 -107.9 Meds/Results Medications: Active Medications Generic Name Dose Route Start Last Admin Trade Name Freq PRN Reason Stop Dose Admin Acetaminophen 650 mg 08/30/25 10:58 Acetaminophen 325 Mg Tablet PO Q4H PRN Mild Pain (1-3) or Fever Albuterol/Ipratropium 3 ml 09/01/25 08:55 09/05/25 08:24 Ipratropium 0.5 Mg/Albuterol Sulfate 2.5 Mg (Base) Ampul.Neb 3 Ml INHALATION 3 ml Q6HRT DARIEN Administration Lidocaine HCl 30 ml/ Al Hydrox 0 ml 08/30/25 17:00 09/03/25 07:00 /Mg Hydrox/Simethicone 30 ml/ PO Not Given Diphenhydramine HCl 75 mg Q4HWA DARIEN On Hold: 09/03/25 07:00 Dextrose 12.5 gm 09/03/25 10:06 Dextrose 50% 25 Gm/50 Ml Syringe IV PUSH PRN PRN Hypoglycemia Protocol Fenofibrate 145 mg 09/01/25 09:00 09/04/25 08:43 Fenofibrate 145 Mg Tablet PO Not Given QAM DARIEN Glucagon 1 mg 09/03/25 10:06 Glucagon For Inj 1 Mg Vial IM PRN PRN Hypoglycemia Protocol Glucose 15 gm 09/03/25 10:06 Glucose Oral Gel 15 Gm Of Glucse In 37.5 Gm Tube PO PRN PRN Hypoglycemia Protocol Heparin Sodium (Beef Lung) 50 units 09/03/25 09:00 09/04/25 08:43 Heparin Flush 50 Units/5 Ml Syringe IV PUSH Not Given QAM DARIEN Heparin Sodium (Beef Lung) 50 units 09/03/25 07:03 Heparin Flush 50 Units/5 Ml Syringe IV PUSH PRN PRN after intermittent infusion Heparin Sodium (Beef Lung) 50 units 09/03/25 07:03 Heparin Flush 50 Units/5 Ml Syringe IV PUSH PRN PRN after blood draws Heparin Sodium (Porcine) 500 units 09/03/25 07:03 Heparin Sodium Lock Flush 500 Units/5 Ml Syringe IV PUSH PRN PRN see comments below Norepinephrine Bitartrate 8 mg in 250 mls @ 3.75 mls/hr 09/03/25 04:20 09/05/25 02:00 Levophed 8 Mg/D5w 250 Ml IV CONT Infused .Q24H DARIEN Titration Protocol 2 MCG/MIN Fentanyl Citrate 2,500 mcg in 250 mls @ 0 mls/hr 09/03/25 04:40 09/05/25 08:16 Fentanyl 2,500 Mcg/Ns 250 Ml IV CONT 0 mcg/hr .Q0M DARIEN 0 mls/hr Protocol Titration 0 MCG/HR Dextrose 1,000 mls @ 100 mls/hr 09/03/25 10:06 Dextrose 5% 1,000 Ml IVPB PRN PRN Hypoglycemia Protocol Meropenem 1 gm/ Sodium 100 mls @ 200 mls/hr 09/03/25 11:00 09/05/25 04:39 Chloride IVPB Infused Q8H DARIEN Infusion Midazolam HCl 100 mg in 100 mls @ 0 mls/hr 09/03/25 13:15 09/05/25 08:16 Versed 100 Mg/Ns 100 Ml IV CONT 0 mg/hr .Q0M DARIEN 0 mls/hr Protocol Titration 0 MG/HR Micafungin Sodium 100 mg/ 100 mls @ 100 mls/hr 09/03/25 14:00 09/04/25 20:30 Sodium Chloride IVPB Infused Q24H DARIEN Infusion Vancomycin HCl 1,500 mg in 500 mls @ 250 mls/hr 09/05/25 06:00 09/05/25 05:14 Vancomycin 1,500 Mg/Ns 500 Ml IVPB 250 mls/hr Q18H DARIEN Administration Insulin Aspart 2 - 5 units 09/03/25 10:10 09/05/25 04:57 Insulin Aspart (*Bkc) 100 Units/Ml SUB-Q Not Given Q4HR DARIEN Protocol Lidocaine HCl 1 applic 08/30/25 20:34 08/31/25 09:34 Lidocaine 4% Soln 50 Ml Btl TOPICAL 1 applic PRN PRN Administration Pain Loratadine 10 mg 08/31/25 21:00 09/04/25 08:43 Loratadine 10 Mg Tablet [facility] [place]cc[place] 25 mg 08/31/25 13:45 09/02/25 11:31 Metoprolol Succinate Ext Rel 25 Mg Tabcr PO Not Given On Hold: 09/03/25 03:09 QAM [facility] Multi-Ingred Cream/Lotion/Oil/Oint 1 applic 09/03/25 09:00 09/04/25 20:33 Mineral Oil/White Petrolatum Ointment EACH EYE 1 applic Q12HR DARIEN Administration Pantoprazole Sodium 40 mg 09/03/25 21:00 09/04/25 21:51 Pantoprazole Sodium Iv 40 Mg Vial IV PUSH 40 mg Q12HR DARIEN Administration Perflutren Lipid Microsphere 0 ml 09/02/25 13:55 Perflutren Lipid Microspheres 1.5 Ml Vial Diluted To 10 Ml Total Volume IV PUSH 09/05/25 13:55 ONCE PRN adequate visualization Protocol Sodium Chloride 10 ml 09/03/25 14:00 09/05/25 04:57 Central Line Flush IV PUSH 10 ml Q8HR DARIEN Administration Tamsulosin HCl 0.4 mg 09/01/25 09:00 09/04/25 08:43 Tamsulosin Hcl 0.4 Mg Capsule PO Not Given DAILY [facility] Vitamin D 125 mcg 09/01/25 09:00 09/04/25 08:43 Cholecalciferol (Vitamin D3) 125 Mcg (5,000 Units) Tablet PO Not Given DAILY [facility] Radiology Results: ITS Impressions Head CT 09/03/25 06:23 IMPRESSION: 1. No acute intracranial findings. Head/Neck CTA 09/03/25 06:30 IMPRESSION: CT HEAD: 1. No acute intracranial findings. CTA NECK: 1. Motion artifact along carotid bulbs. Stenosis or even dissection not excluded. Recommend carotid ultrasound. CTA HEAD: 1. No large vessel arterial occlusive disease or other acute findings. 2. No aneurysms. Chest CT 09/03/25 07:26 IMPRESSION: 1. Significant decrease in lung volumes with prominent dependent atelectasis including partial collapse of the bilateral lower lobes. Superimposed pneumonia not excludable. 2. No significant change in small left and moderate-sized right pleural effusions. 3. Moderate amount of ascites in the upper abdomen. 4. Scattered sclerotic bone lesions consistent with known metastatic prostate cancer and with chronic pathologic fracture at T10. Carotid Doppler Study 09/03/25 17:25 IMPRESSION: 1. >=70% (but less than near occlusion) stenosis in the right internal carotid artery. 2. >=70% (but less than near occlusion) stenosis in the left internal carotid artery. 3. The degree of stenosis indicated by the increased velocities is greater than would be expected given the amount of calcified atherosclerotic plaque evident on the prior CT angiogram. This suggests that the lower density linear filling defects at the bilateral carotid bulbs seen on the prior CT angiogram are not artifactual and likely to represent small dissection flaps. Abdomen X-Ray 09/04/25 07:07 IMPRESSION: 1: NG tube tip in the stomach. 2: Bibasilar airspace disease may represent edema or pneumonia. Labs Labs: Laboratory Results - last 24 hr 09/03/25 09/03/25 09/04/25 05:44 05:45 08:27 WBC RBC Hgb Hct MCV MCH MCHC RDW Plt Count MPV Immature Gran % (Auto) Neut % (Auto) Lymph % (Auto) [place] % (Auto) Eos % (Auto) Baso % (Auto) Lymph # (Auto) [place] # (Auto) Eos # (Auto) Baso # (Auto) Abs Immat Gran (auto) Absolute Neuts (auto) Absolute Nucleated RBC Band Neutrophils % Nucleated RBC % Platelet Estimate Hypochromasia Anisocytosis Schistocytes PT INR APTT Puncture Site ABG pH ABG pCO2 ABG pO2 ABG PO2/FiO2 Ratio ABG HCO3 ABG O2 Saturation ABG O2 Content ABG Base Excess A-a Gradient Oxyhemoglobin Carboxyhemoglobin Methemoglobin Reduced Hemoglobin Total Hemoglobin O2 Delivery Device O2 Liters/Min Minute Volume Vent Rate Vent Mode FiO2 Tidal Volume PEEP Peak Inspir Pressure Pressure Support Sodium Potassium Chloride Carbon Dioxide Anion Gap BUN Creatinine Estim Creat Clear Calc Estimated GFR Glucose POC Capillary Glucose 165 H Lactic Acid Calcium Phosphorus Magnesium Total Bilirubin AST ALT Alkaline Phosphatase C-Reactive Protein Total Protein Albumin Fluid Total Protein 1.7 Fluid Albumin 1.2 Fluid LDH 92 Pleural Total Protein Cancelled Bronch Specimen Source Bronchial Fluid Color Bronchial Fluid Appearance Bronchial Neutrophils Bronchial Lymphocytes Bronchial Monocytes Bronchial Eosinophils Bronchial Macrophages Bronchial Other Cells Vancomycin Trough 09/04/25 09/04/25 09/04/25 09:20 09:20 09:20 WBC RBC Hgb Hct MCV MCH MCHC RDW Plt Count MPV Immature Gran % (Auto) Neut % (Auto) Lymph % (Auto) [place] % (Auto) Eos % (Auto) Baso % (Auto) Lymph # (Auto) [place] # (Auto) Eos # (Auto) Baso # (Auto) Abs Immat Gran (auto) Absolute Neuts (auto) Absolute Nucleated RBC Band Neutrophils % Nucleated RBC % Platelet Estimate Hypochromasia Anisocytosis Schistocytes PT INR APTT Puncture Site ABG pH ABG pCO2 ABG pO2 ABG PO2/FiO2 Ratio ABG HCO3 ABG O2 Saturation ABG O2 Content ABG Base Excess A-a Gradient Oxyhemoglobin Carboxyhemoglobin Methemoglobin Reduced Hemoglobin Total Hemoglobin O2 Delivery Device O2 Liters/Min Minute Volume Vent Rate Vent Mode FiO2 Tidal Volume PEEP Peak Inspir Pressure Pressure Support Sodium Potassium Chloride Carbon Dioxide Anion Gap BUN Creatinine Estim Creat Clear Calc Estimated GFR Glucose POC Capillary Glucose Lactic Acid Calcium Phosphorus Magnesium Total Bilirubin AST ALT Alkaline Phosphatase C-Reactive Protein Total Protein Albumin Fluid Total Protein Fluid Albumin Fluid LDH Pleural Total Protein Bronch Specimen Source Bronchial lavage Cancelled Bronchial Fluid Color Colorless Cancelled Bronchial Fluid Appearance Cloudy Bronchial Neutrophils Bronchial Lymphocytes Bronchial Monocytes Bronchial Eosinophils Bronchial Macrophages Bronchial Other Cells Vancomycin Trough 09/04/25 09/04/25 09/04/25 09:20 09:20 09:20 WBC RBC Hgb Hct MCV MCH MCHC RDW Plt Count MPV Immature Gran % (Auto) Neut % (Auto) Lymph % (Auto) [place] % (Auto) Eos % (Auto) Baso % (Auto) Lymph # (Auto) [place] # (Auto) Eos # (Auto) Baso # (Auto) Abs Immat Gran (auto) Absolute Neuts (auto) Absolute Nucleated RBC Band Neutrophils % Nucleated RBC % Platelet Estimate Hypochromasia Anisocytosis Schistocytes PT INR APTT Puncture Site ABG pH ABG pCO2 ABG pO2 ABG PO2/FiO2 Ratio ABG HCO3 ABG O2 Saturation ABG O2 Content ABG Base Excess A-a Gradient Oxyhemoglobin Carboxyhemoglobin Methemoglobin Reduced Hemoglobin Total Hemoglobin O2 Delivery Device O2 Liters/Min Minute Volume Vent Rate Vent Mode FiO2 Tidal Volume PEEP Peak Inspir Pressure Pressure Support Sodium Potassium Chloride Carbon Dioxide Anion Gap BUN Creatinine Estim Creat Clear Calc Estimated GFR Glucose POC Capillary Glucose Lactic Acid Calcium Phosphorus Magnesium Total Bilirubin AST ALT Alkaline Phosphatase C-Reactive Protein Total Protein Albumin Fluid Total Protein Fluid Albumin Fluid LDH Pleural Total Protein Bronch Specimen Source Bronchial Fluid Color Bronchial Fluid Appearance Cancelled Bronchial Neutrophils 24 Cancelled Bronchial Lymphocytes 37 Cancelled Bronchial Monocytes 9 Bronchial Eosinophils Bronchial Macrophages Bronchial Other Cells Vancomycin Trough 09/04/25 09/04/25 09/04/25 09:20 09:20 09:20 WBC RBC Hgb Hct MCV MCH MCHC RDW Plt Count MPV Immature Gran % (Auto) Neut % (Auto) Lymph % (Auto) [place] % (Auto) Eos % (Auto) Baso % (Auto) Lymph # (Auto) [place] # (Auto) Eos # (Auto) Baso # (Auto) Abs Immat Gran (auto) Absolute Neuts (auto) Absolute Nucleated RBC Band Neutrophils % Nucleated RBC % Platelet Estimate Hypochromasia Anisocytosis Schistocytes PT INR APTT Puncture Site ABG pH ABG pCO2 ABG pO2 ABG PO2/FiO2 Ratio ABG HCO3 ABG O2 Saturation ABG O2 Content ABG Base Excess A-a Gradient Oxyhemoglobin Carboxyhemoglobin Methemoglobin Reduced Hemoglobin Total Hemoglobin O2 Delivery Device O2 Liters/Min Minute Volume Vent Rate Vent Mode FiO2 Tidal Volume PEEP Peak Inspir Pressure Pressure Support Sodium Potassium Chloride Carbon Dioxide Anion Gap BUN Creatinine Estim Creat Clear Calc Estimated GFR Glucose POC Capillary Glucose Lactic Acid Calcium Phosphorus Magnesium Total Bilirubin AST ALT Alkaline Phosphatase C-Reactive Protein Total Protein Albumin Fluid Total Protein Fluid Albumin Fluid LDH Pleural Total Protein Bronch Specimen Source Bronchial Fluid Color Bronchial Fluid Appearance Bronchial Neutrophils Bronchial Lymphocytes Bronchial Monocytes Cancelled Bronchial Eosinophils 1 Cancelled Bronchial Macrophages 6 Cancelled Bronchial Other Cells 23 Vancomycin Trough 09/04/25 09/04/25 09/04/25 09:20 11:59 16:00 WBC RBC Hgb Hct MCV MCH MCHC RDW Plt Count MPV Immature Gran % (Auto) Neut % (Auto) Lymph % (Auto) [place] % (Auto) Eos % (Auto) Baso % (Auto) Lymph # (Auto) [place] # (Auto) Eos # (Auto) Baso # (Auto) Abs Immat Gran (auto) Absolute Neuts (auto) Absolute Nucleated RBC Band Neutrophils % Nucleated RBC % Platelet Estimate Hypochromasia Anisocytosis Schistocytes PT INR APTT Puncture Site ABG pH ABG pCO2 ABG pO2 ABG PO2/FiO2 Ratio ABG HCO3 ABG O2 Saturation ABG O2 Content ABG Base Excess A-a Gradient Oxyhemoglobin Carboxyhemoglobin Methemoglobin Reduced Hemoglobin Total Hemoglobin O2 Delivery Device O2 Liters/Min Minute Volume Vent Rate Vent Mode FiO2 Tidal Volume PEEP Peak Inspir Pressure Pressure Support Sodium Potassium Chloride Carbon Dioxide Anion Gap BUN Creatinine Estim Creat Clear Calc Estimated GFR Glucose POC Capillary Glucose 136 H 132 H Lactic Acid Calcium Phosphorus Magnesium Total Bilirubin AST ALT Alkaline Phosphatase C-Reactive Protein Total Protein Albumin Fluid Total Protein Fluid Albumin Fluid LDH Pleural Total Protein Bronch Specimen Source Bronchial Fluid Color Bronchial Fluid Appearance Bronchial Neutrophils Bronchial Lymphocytes Bronchial Monocytes Bronchial Eosinophils Bronchial Macrophages Bronchial Other Cells Cancelled Vancomycin Trough 09/04/25 09/04/25 09/05/25 17:57 20:19 00:20 WBC RBC Hgb Hct MCV MCH MCHC RDW Plt Count MPV Immature Gran % (Auto) Neut % (Auto) Lymph % (Auto) [place] % (Auto) Eos % (Auto) Baso % (Auto) Lymph # (Auto) [place] # (Auto) Eos # (Auto) Baso # (Auto) Abs Immat Gran (auto) Absolute Neuts (auto) Absolute Nucleated RBC Band Neutrophils % Nucleated RBC % Platelet Estimate Hypochromasia Anisocytosis Schistocytes PT INR APTT Puncture Site ABG pH ABG pCO2 ABG pO2 ABG PO2/FiO2 Ratio ABG HCO3 ABG O2 Saturation ABG O2 Content ABG Base Excess A-a Gradient Oxyhemoglobin Carboxyhemoglobin Methemoglobin Reduced Hemoglobin Total Hemoglobin O2 Delivery Device O2 Liters/Min Minute Volume Vent Rate Vent Mode FiO2 Tidal Volume PEEP Peak Inspir Pressure Pressure Support Sodium Potassium Chloride Carbon Dioxide Anion Gap BUN Creatinine Estim Creat Clear Calc Estimated GFR Glucose POC Capillary Glucose 134 H 129 H Lactic Acid Calcium Phosphorus Magnesium Total Bilirubin AST ALT Alkaline Phosphatase C-Reactive Protein Total Protein Albumin Fluid Total Protein Fluid Albumin Fluid LDH Pleural Total Protein Bronch Specimen Source Bronchial Fluid Color Bronchial Fluid Appearance Bronchial Neutrophils Bronchial Lymphocytes Bronchial Monocytes Bronchial Eosinophils Bronchial Macrophages Bronchial Other Cells Vancomycin Trough 24.3 H 09/05/25 09/05/25 09/05/25 04:46 04:49 05:17 WBC 19.1 H RBC 2.49 L Hgb 7.8 L Hct 23.8 L MCV 95.6 MCH 31.3 MCHC 32.8 RDW 20.3 H Plt Count 180 MPV 11.1 H Immature Gran % (Auto) 6.5 H Neut % (Auto) 75.0 H Lymph % (Auto) 4.2 L [place] % (Auto) 13.7 H Eos % (Auto) 0.0 Baso % (Auto) 0.6 Lymph # (Auto) 0.80 L [place] # (Auto) 2.6 H Eos # (Auto) 0.0 Baso # (Auto) 0.1 Abs Immat Gran (auto) 1.25 H Absolute Neuts (auto) 14.3 H Absolute Nucleated RBC 0.280 H Band Neutrophils % Not Reportable Nucleated RBC % 1.5 H Platelet Estimate Adequate Hypochromasia 1+ Anisocytosis 2+ Schistocytes None seen PT INR APTT Puncture Site Left radial ABG pH 7.490 H ABG pCO2 32.3 L ABG pO2 92.0 ABG PO2/FiO2 Ratio 3.07 ABG HCO3 24.1 ABG O2 Saturation 97.6 ABG O2 Content 11.4 L ABG Base Excess 0.9 A-a Gradient 84.0 Oxyhemoglobin 96.1 Carboxyhemoglobin 1.1 Methemoglobin 0.1 Reduced Hemoglobin 2.7 Total Hemoglobin 8.3 L O2 Delivery Device Ventilator O2 Liters/Min Not Reportable Minute Volume Not Reportable Vent Rate 18 Vent Mode Cmv FiO2 30 Tidal Volume 400 PEEP 5 Peak Inspir Pressure Not Reportable Pressure Support Not Reportable Sodium 139 Potassium 4.1 Chloride 109 H Carbon Dioxide 26 Anion Gap 4 BUN 25 H Creatinine 0.83 Estim Creat Clear Calc 65 Estimated GFR > 60 Glucose 100 POC Capillary Glucose 112 H Lactic Acid Calcium 7.0 L Phosphorus 2.0 L Magnesium 2.4 H Total Bilirubin 0.8 AST 62 H ALT 15 Alkaline Phosphatase 86 C-Reactive Protein 5.5 H Total Protein 4.4 L Albumin 2.7 L Fluid Total Protein Fluid Albumin Fluid LDH Pleural Total Protein Bronch Specimen Source Bronchial Fluid Color Bronchial Fluid Appearance Bronchial Neutrophils Bronchial Lymphocytes Bronchial Monocytes Bronchial Eosinophils Bronchial Macrophages Bronchial Other Cells Vancomycin Trough 09/05/25 05:18 WBC RBC Hgb Hct MCV MCH MCHC RDW Plt Count MPV Immature Gran % (Auto) Neut % (Auto) Lymph % (Auto) [place] % (Auto) Eos % (Auto) Baso % (Auto) Lymph # (Auto) [place] # (Auto) Eos # (Auto) Baso # (Auto) Abs Immat Gran (auto) Absolute Neuts (auto) Absolute Nucleated RBC Band Neutrophils % Nucleated RBC % Platelet Estimate Hypochromasia Anisocytosis Schistocytes PT 19.4 H INR 1.6 APTT 44.9 H Puncture Site ABG pH ABG pCO2 ABG pO2 ABG PO2/FiO2 Ratio ABG HCO3 ABG O2 Saturation ABG O2 Content ABG Base Excess A-a Gradient Oxyhemoglobin Carboxyhemoglobin Methemoglobin Reduced Hemoglobin Total Hemoglobin O2 Delivery Device O2 Liters/Min Minute Volume Vent Rate Vent Mode FiO2 Tidal Volume PEEP Peak Inspir Pressure Pressure Support Sodium Potassium Chloride Carbon Dioxide Anion Gap BUN Creatinine Estim Creat Clear Calc Estimated GFR Glucose POC Capillary Glucose Lactic Acid 0.9 Calcium Phosphorus Magnesium Total Bilirubin AST ALT Alkaline Phosphatase C-Reactive Protein Total Protein Albumin Fluid Total Protein Fluid Albumin Fluid LDH Pleural Total Protein Bronch Specimen Source Bronchial Fluid Color Bronchial Fluid Appearance Bronchial Neutrophils Bronchial Lymphocytes Bronchial Monocytes Bronchial Eosinophils Bronchial Macrophages Bronchial Other Cells Vancomycin Trough Quality VTE Prophylaxis VTE prophylaxis: mechanical ordered Hospitalist MIPS Advance Care Plan I have confirmed that the patient's Advanced Care Plan is present, code status is documented, or surrogate decision maker is listed in patient medical record.: Yes Medication Reconciliation I have utilized all available resources to obtain, update and review the patients current medications (includes all prescriptions, OTC, herbals, cannabis, and nutritional supplements).: Yes
[2025-09-05] MEDS: CHOLECALCIFEROL (VITAMIN D3) 125 MCG (5,000 UNITS) TABLET PO (09:12)
[2025-09-05] MEDS: TAMSULOSIN HCL 0.4 MG CAPSULE PO (09:12)
[2025-09-05] MEDS: MINERAL OIL/WHITE PETROLATUM OINTMENT 1 APPLIC EACH EYE ×2 (09:12→21:43)
[2025-09-05] MEDS: LORATADINE 10 MG TABLET PO (09:12)
[2025-09-05] MEDS: FENOFIBRATE 145 MG TABLET PO (09:12)
[2025-09-05] MEDS: PANTOPRAZOLE SODIUM IV 40 MG VIAL IV PUSH ×2 (09:14→21:43)
[2025-09-05] MEDS: POTASSIUM/PHOSPHORUS/SODIUM 1.5 GM PACKET 2 PACKET PO (11:02)
--- NOTE | 2025-09-05 11:15 | WPDINTPN ---
Progress Note: A&P Assessment and Plan (1) Septic shock: Code(s): A41.9 - Sepsis, unspecified organism; R65.21 - Severe sepsis with septic shock Status: Acute Assessment and Plan: 09/03/2025: Patient was transferred from medical floor to ICU where he was intubated, found to be hypotensive, received albumin -and IV fluid bolus, started on Levophed -patient does have a port, will use that for the pressors -off Levophed -patient was on azithromycin, cefepime and vancomycin per Infectious Disease -09/03: Switched antibiotics to meropenem, vancomycin and micafungin -(completed a course of azithromycin) -appreciate ID following the patient along with the recommendations -micafungin for balanitis per Infectious Disease -08/30: Blood cultures negative x2 -09/03: Blood cultures obtained and pending 09/04: Respiratory cultures from BAL pending (2) Acute respiratory failure: Code(s): J96.00 - Acute respiratory failure, unspecified whether with hypoxia or hypercapnia Status: Acute Assessment and Plan: Patient is transferred from medical floor after being found hypoxic, hypotensive and less responsive/altered mental status -increasing O2 requirements on Airvo -09/03: Patient was intubated by ER physician in the ICU -currently on CMV mode of ventilation, peep of 5, 35% FiO2. -ABGs, chest x-ray and CT chest reviewed. -continue bronchodilator -09/03: Status post right thoracentesis this by ER physician, drained 600 mL yellow sticky fluid -09/04: Bronchoscopy performed by pulmonology, BAL cultures have been obtained and pending -appreciate pulmonology evaluation and recommendation 09/03/2025: CT chest with contrast -IMPRESSION: 1. Significant decrease in lung volumes with prominent dependent atelectasis including partial collapse of the bilateral lower lobes. Superimposed pneumonia not excludable. 2. No significant change in small left and moderate-sized right pleural effusions. 3. Moderate amount of ascites in the upper abdomen. 4. Scattered sclerotic bone lesions consistent with known metastatic prostate cancer and with chronic pathologic fracture at T10. 09/02: IMPRESSION: Moderate loculated right pleural effusion and small left pleural effusion. Patchy infiltrates are present bilaterally. There is mediastinal lymphadenopathy. Sclerotic changes within the T9 vertebral body suggestive of metastasis. (3) Pleural effusion: Code(s): J90 - Pleural effusion, not elsewhere classified Status: Acute Assessment and Plan: 09/03: Thoracentesis perform a ER physician early hours with a removal of 600 mL in yellow sticky fluid -according to Light's criteria pleural protein/serum protein ratio<0.5, pleural LDH/serum LDH < 0.6. The effusion is likely a transudate -fluid gram stain did not show any organism, cultures are still pending -according the hospitalist, pleural fluid looked like an exudate. Will confirm with pleural fluid studies -continue antibiotics as above (4) Pneumonia: Code(s): J18.9 - Pneumonia, unspecified organism Status: Acute Assessment and Plan: Consolidation noted on CT scan of the chest -continue antibiotics as above -appreciate pulmonology evaluation and recommendations, -bronchoscopy done on 09/04 since patient is immunocompromised due to chemotherapy (5) Encephalopathy: Code(s): G93.40 - Encephalopathy, unspecified Status: Acute Assessment and Plan: Encephalopathy could be multifactorial, septic shock, hypotension, hypoxia -currently intubated, not on any sedation. -will maintain Euthermia, adequate blood pressures, adequate oxygenation -upon sedation vacation, patient does open his eyes and follows simple commands IMPRESSION: CT HEAD: 1. No acute intracranial findings. CTA NECK: 1. Motion artifact along carotid bulbs. Stenosis or even dissection not excluded. Recommend carotid ultrasound. CTA HEAD: 1. No large vessel arterial occlusive disease or other acute findings. 2. No aneurysms. (6) Coagulopathy: Code(s): D68.9 - Coagulation defect, unspecified Status: Acute Assessment and Plan: PTT elevated, continue to monitor, patient not on any anticoagulation at this time -improving (7) Anemia: Code(s): D64.9 - Anemia, unspecified Status: Acute Assessment and Plan: 09/03: Hemoglobin dropped to 6.9 this morning from 7.5. Transfused 1 unit of packed RBCs -hemoglobin has been stable and gradually improving -continue to monitor (8) Protein calorie malnutrition: Code(s): E46 - Unspecified protein-calorie malnutrition Status: Acute Assessment and Plan: Protein calorie malnutrition, BMI of 23.6 -likely moderate protein calorie malnutrition -09/04: Tolerating tube feeds -will replace phosphorus again today (9) Metastatic malignant neoplasm to prostate: Code(s): C79.82 - Secondary malignant neoplasm of genital organs Status: Acute Assessment and Plan: Patient has metastatic prostate cancer, being treated by Dr. Walsh with palliative chemotherapy (10) Candidal balano-posthitis: Code(s): B37.49 - Other urogenital candidiasis Status: Acute Assessment and Plan: Continue micafungin per Infectious Disease (11) COPD (chronic obstructive pulmonary disease): Code(s): J44.9 - Chronic obstructive pulmonary disease, unspecified Status: Acute Assessment and Plan: Continue DuoNebs, on mechanical ventilation Plan DVT prophylaxis: SCDs, no chemoprophylaxis due to anemia and drop in hemoglobin Stress ulcer prophylaxis: Protonix IV q.12 hours Nutrition: If patient does not get extubated, will increase tube feeds Code Status: Full code Critical Care Time Spent: 34 minutes Discussed with family during rounds and updated them with patient's condition and plan of care. Discussed with son, Timmy, updated him with patient's condition and plan of care. Son is aware that the patient is on vasopressors, mechanical ventilation, antibiotics, warming blanket for low body temperature. He stated that the patient wanted everything to be done for him including resuscitation. I did recommend no CPR in case of cardiac arrest given that patient is frail, CPR will cause more damage than good, risk of rib fractures most suffering for the patient. He is going to talk to his siblings and get back to me regarding DNR status. Due to a high probability of clinically significant, life threatening deterioration, the patient required my highest level of preparedness to intervene emergently and I personally spent this critical care time directly and personally managing the patient. This critical care time included obtaining a history; examining the patient; pulse oximetry; ordering and review of studies; arranging urgent treatment with development of a management plan; evaluation of patient's response to treatment; frequent reassessment; and discussions with other providers. It was exclusive of separately billable procedures and treating other patients and teaching time. Please see Assessment and Plan section and the rest of the note for further information on patient assessment and treatment This dictation may have been done utilizing a voice recognition system. Attempts have been made to correct errors. However, there may be uncorrected grammatical, spelling, and recognitions errors present. Subjective Date/time seen: 09/05/25 11:15 Interval history: Reason for consult: Acute respiratory failure, septic shock, encephalopathy, recent chemotherapy, neutropenia, fungal balanitis 09/05/2025: Patient seen examined the ICU. Remains intubated on CMV mode of ventilation, peep of 5, 30% FiO2. Sedated with fentanyl and Versed infusion, patient does open his eyes and follows simple commands. Pupils are equal and reactive this morning. Patient has been on and off low-dose Levophed. Urine output has been adequate, patient's body temperature is stable Review of Systems Review of Systems: ROS unobtainable: Yes unobtainable due to endotracheal tube, unobtainable due to medical condition and unobtainable due to mental status Exam Narrative: General: Ill-appearing elderly patient, intubated HEENT:? Pupils equal and reactive bilaterally. Sclera is clear, eyes are sunken, ETT in place Neck:? Supple Respiratory:? Coarse breath sounds bilaterally, rales auscultated bilaterally, no wheezing, adequate air entry otherwise Cardiac:? S1-S2 is normal, regular rate and rhythm Abdomen: Soft, nontender, non distended, hypoactive bowel sounds Extremities:? No edema, palpable pedal pulse Neuro:? Intubated, on sedation, opens his eyes and follows simple commands Skin:? Skin tears noted on the feet bilaterally, Psych:? Unable to assess at this time Objective Data Vital Signs Vital Signs: Vital Signs - 24 hr 09/04/25 11:31 09/04/25 11:50 09/04/25 12:00 Temperature Pulse Rate 89 89 Respiratory Rate 18 18 Blood Pressure Pulse Oximetry 100 99 99 Oxygen Delivery Mechanical Ventilation Fraction of Inspired Oxygen 30 09/04/25 12:00 09/04/25 12:00 09/04/25 12:00 Temperature 99.6 F Pulse Rate 88 89 Respiratory Rate 18 Blood Pressure 100/52 L Pulse Oximetry 99 Oxygen Delivery Fraction of Inspired Oxygen 30 09/04/25 12:05 09/04/25 12:06 09/04/25 12:07 Temperature Pulse Rate 87 89 89 Respiratory Rate 18 18 Blood Pressure 101/55 L Pulse Oximetry Oxygen Delivery Fraction of Inspired Oxygen 09/04/25 12:17 09/04/25 12:41 09/04/25 12:45 Temperature Pulse Rate 86 87 85 Respiratory Rate 18 0 L Blood Pressure 103/52 L Pulse Oximetry 99 98 Oxygen Delivery Fraction of Inspired Oxygen 09/04/25 12:46 09/04/25 13:00 09/04/25 13:47 Temperature 99.2 F Pulse Rate 85 85 83 Respiratory Rate 6 L 18 Blood Pressure 102/51 L Pulse Oximetry 98 99 Oxygen Delivery Fraction of Inspired Oxygen 09/04/25 14:00 09/04/25 14:00 09/04/25 14:04 Temperature 99.1 F Pulse Rate 86 90 82 Respiratory Rate 18 Blood Pressure 106/54 L 106/54 L Pulse Oximetry 99 100 Oxygen Delivery Mechanical Ventilation Fraction of Inspired Oxygen 30 09/04/25 14:04 09/04/25 14:15 09/04/25 14:25 Temperature Pulse Rate 82 85 78 Respiratory Rate 18 18 18 Blood Pressure Pulse Oximetry Oxygen Delivery Fraction of Inspired Oxygen 09/04/25 14:26 09/04/25 14:42 09/04/25 15:00 Temperature Pulse Rate 88 95 100 Respiratory Rate 18 13 18 Blood Pressure 113/58 L Pulse Oximetry 98 99 Oxygen Delivery Fraction of Inspired Oxygen 09/04/25 15:16 09/04/25 15:50 09/04/25 16:00 Temperature 99.1 F Pulse Rate 99 96 94 Respiratory Rate 9 L 8 L 18 Blood Pressure 117/62 Pulse Oximetry 99 99 99 Oxygen Delivery Fraction of Inspired Oxygen 09/04/25 16:00 09/04/25 16:00 09/04/25 16:00 Temperature Pulse Rate 92 Respiratory Rate Blood Pressure Pulse Oximetry 99 Oxygen Delivery Mechanical Ventilation Fraction of Inspired Oxygen 30 30 09/04/25 16:06 09/04/25 16:07 09/04/25 16:08 Temperature Pulse Rate 92 90 89 Respiratory Rate 18 18 Blood Pressure 117/62 Pulse Oximetry Oxygen Delivery Fraction of Inspired Oxygen 09/04/25 16:28 09/04/25 16:28 09/04/25 16:34 Temperature Pulse Rate 86 86 89 Respiratory Rate 18 18 18 Blood Pressure Pulse Oximetry 99 Oxygen Delivery Fraction of Inspired Oxygen 09/04/25 17:00 09/04/25 17:00 09/04/25 17:05 Temperature Pulse Rate 86 85 86 Respiratory Rate 18 13 11 L Blood Pressure 110/58 L 110/58 L Pulse Oximetry 99 99 99 Oxygen Delivery Fraction of Inspired Oxygen 09/04/25 17:16 09/04/25 17:30 09/04/25 17:31 Temperature Pulse Rate 84 84 84 Respiratory Rate 18 18 16 Blood Pressure 110/60 Pulse Oximetry 99 99 99 Oxygen Delivery Fraction of Inspired Oxygen 09/04/25 17:45 09/04/25 17:46 09/04/25 17:56 Temperature Pulse Rate 83 85 96 Respiratory Rate 0 L 0 L Blood Pressure 112/60 Pulse Oximetry 99 99 100 Oxygen Delivery Mechanical Ventilation Fraction of Inspired Oxygen 30 09/04/25 18:00 09/04/25 18:00 09/04/25 18:00 Temperature 99.1 F Pulse Rate 88 88 102 H Respiratory Rate 18 21 H Blood Pressure 98/53 L Pulse Oximetry 98 93 Oxygen Delivery Fraction of Inspired Oxygen 09/04/25 18:01 09/04/25 18:02 09/04/25 18:03 Temperature Pulse Rate 91 100 89 Respiratory Rate 18 18 18 Blood Pressure 141/127 H 98/53 L Pulse Oximetry 98 Oxygen Delivery Fraction of Inspired Oxygen 09/04/25 18:05 09/04/25 18:06 09/04/25 18:15 Temperature Pulse Rate 88 89 89 Respiratory Rate 18 18 Blood Pressure 98/53 L 117/63 Pulse Oximetry 99 Oxygen Delivery Fraction of Inspired Oxygen 09/04/25 18:21 09/04/25 18:30 09/04/25 18:31 Temperature Pulse Rate 84 86 85 Respiratory Rate 7 L 18 18 Blood Pressure 118/60 Pulse Oximetry 99 99 99 Oxygen Delivery Fraction of Inspired Oxygen 09/04/25 18:45 09/04/25 18:46 09/04/25 19:00 Temperature Pulse Rate 84 84 85 Respiratory Rate 0 L 0 L 12 Blood Pressure 114/59 L 114/60 Pulse Oximetry 99 99 99 Oxygen Delivery Fraction of Inspired Oxygen 09/04/25 19:01 09/04/25 19:25 09/04/25 19:30 Temperature Pulse Rate 84 85 110 H Respiratory Rate 44 H 18 0 L Blood Pressure Pulse Oximetry 100 99 98 Oxygen Delivery Fraction of Inspired Oxygen 09/04/25 19:31 09/04/25 19:36 09/04/25 19:45 Temperature 98.0 F Pulse Rate 98 91 Respiratory Rate 0 L 13 Blood Pressure 124/65 Pulse Oximetry 98 98 Oxygen Delivery Fraction of Inspired Oxygen 09/04/25 19:46 09/04/25 20:00 09/04/25 20:00 Temperature Pulse Rate 85 82 Respiratory Rate 0 L Blood Pressure 111/58 L Pulse Oximetry 98 98 99 Oxygen Delivery Mechanical Ventilation Fraction of Inspired Oxygen 30 09/04/25 20:00 09/04/25 20:00 09/04/25 20:00 Temperature Pulse Rate 83 84 Respiratory Rate Blood Pressure 114/62 Pulse Oximetry Oxygen Delivery Fraction of Inspired Oxygen 30 09/04/25 20:00 09/04/25 20:00 09/04/25 20:01 Temperature Pulse Rate 83 88 83 Respiratory Rate 18 18 Blood Pressure 112/58 L Pulse Oximetry 98 Oxygen Delivery Fraction of Inspired Oxygen 09/04/25 20:02 09/04/25 20:07 09/04/25 20:16 Temperature Pulse Rate 81 94 84 Respiratory Rate 9 L 5 L Blood Pressure 112/63 Pulse Oximetry 98 100 100 Oxygen Delivery Mechanical Ventilation Fraction of Inspired Oxygen 30 09/04/25 20:25 09/04/25 20:31 09/04/25 20:46 Temperature 99.2 F Pulse Rate 89 85 Respiratory Rate 14 Blood Pressure 117/59 L 112/60 Pulse Oximetry 99 98 Oxygen Delivery Fraction of Inspired Oxygen 09/04/25 21:00 09/04/25 21:01 09/04/25 21:02 Temperature 99.2 F Pulse Rate 80 84 Respiratory Rate 0 L 0 L 16 Blood Pressure 112/62 Pulse Oximetry 98 99 Oxygen Delivery Fraction of Inspired Oxygen 09/04/25 21:02 09/04/25 21:31 09/04/25 21:32 Temperature Pulse Rate 85 84 90 Respiratory Rate 5 L 6 L Blood Pressure 114/62 Pulse Oximetry 98 99 99 Oxygen Delivery Fraction of Inspired Oxygen 09/04/25 22:00 09/04/25 22:00 09/04/25 22:00 Temperature Pulse Rate 85 78 78 Respiratory Rate 12 18 Blood Pressure 105/57 L Pulse Oximetry 99 Oxygen Delivery Fraction of Inspired Oxygen 09/04/25 22:00 09/04/25 22:01 09/04/25 22:01 Temperature 99.2 F Pulse Rate 97 97 Respiratory Rate 14 14 Blood Pressure 110/62 Pulse Oximetry 99 Oxygen Delivery Fraction of Inspired Oxygen 09/04/25 22:02 09/04/25 22:31 09/04/25 22:46 Temperature Pulse Rate 92 88 79 Respiratory Rate 12 16 18 Blood Pressure 121/62 105/57 L Pulse Oximetry 99 99 98 Oxygen Delivery Fraction of Inspired Oxygen 09/04/25 22:47 09/04/25 22:54 09/04/25 22:54 Temperature Pulse Rate 81 89 89 Respiratory Rate 18 18 Blood Pressure Pulse Oximetry 98 100 Oxygen Delivery Mechanical Ventilation Fraction of Inspired Oxygen 30 09/04/25 22:56 09/04/25 23:00 09/04/25 23:00 Temperature 99.3 F Pulse Rate 81 91 Respiratory Rate 18 18 Blood Pressure 104/53 L Pulse Oximetry 98 Oxygen Delivery Fraction of Inspired Oxygen 09/04/25 23:00 09/04/25 23:01 09/05/25 00:00 Temperature 99.4 F Pulse Rate 83 82 87 Respiratory Rate 18 18 18 Blood Pressure 108/56 L 102/53 L Pulse Oximetry 98 98 98 Oxygen Delivery Fraction of Inspired Oxygen 09/05/25 00:00 09/05/25 00:00 09/05/25 00:00 Temperature Pulse Rate 91 Respiratory Rate Blood Pressure 104/53 L Pulse Oximetry 98 Oxygen Delivery Mechanical Ventilation Fraction of Inspired Oxygen 30 30 09/05/25 00:00 09/05/25 00:00 09/05/25 00:00 Temperature Pulse Rate 91 91 91 Respiratory Rate 18 18 Blood Pressure Pulse Oximetry Oxygen Delivery Fraction of Inspired Oxygen 09/05/25 00:03 09/05/25 01:00 09/05/25 02:00 Temperature Pulse Rate 90 81 79 Respiratory Rate 18 18 Blood Pressure 96/53 L Pulse Oximetry 98 98 Oxygen Delivery Fraction of Inspired Oxygen 09/05/25 02:00 09/05/25 02:00 09/05/25 02:00 Temperature Pulse Rate 80 80 80 Respiratory Rate 18 18 Blood Pressure 95/52 L Pulse Oximetry Oxygen Delivery Fraction of Inspired Oxygen 09/05/25 02:01 09/05/25 02:14 09/05/25 02:14 Temperature Pulse Rate 78 77 77 Respiratory Rate 18 18 Blood Pressure 94/52 L Pulse Oximetry 99 99 Oxygen Delivery Mechanical Ventilation Fraction of Inspired Oxygen 30 09/05/25 02:23 09/05/25 02:23 09/05/25 03:00 Temperature 99.4 F Pulse Rate 78 80 Respiratory Rate 18 18 Blood Pressure 95/52 L Pulse Oximetry 98 Oxygen Delivery Fraction of Inspired Oxygen 09/05/25 04:00 09/05/25 04:00 09/05/25 04:00 Temperature Pulse Rate 80 Respiratory Rate Blood Pressure Pulse Oximetry 98 Oxygen Delivery Mechanical Ventilation Fraction of Inspired Oxygen 30 30 09/05/25 04:00 09/05/25 04:00 09/05/25 04:00 Temperature 99.1 F Pulse Rate 78 78 78 Respiratory Rate 18 18 18 Blood Pressure 93/51 L Pulse Oximetry 99 Oxygen Delivery Fraction of Inspired Oxygen 09/05/25 04:55 09/05/25 05:00 09/05/25 05:37 Temperature Pulse Rate 77 79 77 Respiratory Rate 18 Blood Pressure 90/51 L Pulse Oximetry 99 99 Oxygen Delivery Mechanical Ventilation Fraction of Inspired Oxygen 30 09/05/25 06:00 09/05/25 06:00 09/05/25 06:00 Temperature 98.2 F Pulse Rate 97 93 93 Respiratory Rate 18 18 18 Blood Pressure 99/58 L Pulse Oximetry 100 Oxygen Delivery Fraction of Inspired Oxygen 09/05/25 07:00 09/05/25 08:00 09/05/25 08:00 Temperature Pulse Rate 93 78 78 Respiratory Rate 18 18 18 Blood Pressure 102/58 L Pulse Oximetry 100 Oxygen Delivery Fraction of Inspired Oxygen 09/05/25 08:16 09/05/25 08:16 09/05/25 08:23 Temperature Pulse Rate 75 75 82 Respiratory Rate 18 18 Blood Pressure Pulse Oximetry 99 Oxygen Delivery Mechanical Ventilation Fraction of Inspired Oxygen 30 09/05/25 08:23 09/05/25 08:30 Temperature Pulse Rate 80 78 Respiratory Rate 18 18 Blood Pressure Pulse Oximetry Oxygen Delivery Fraction of Inspired Oxygen Intake/Output Intake/Output: Intake & Output 09/02/25 09/03/25 09/04/25 09/05/25 23:59 23:59 23:59 23:59 Intake Total 590 2523.0 824.3 167.1 Output Total 500 800 450 275 Balance 90 1723.0 374.3 -107.9 Meds/Results Medications: Active Medications Generic Name Dose Route Start Last Admin Trade Name Freq PRN Reason Stop Dose Admin Acetaminophen 650 mg 08/30/25 10:58 Acetaminophen 325 Mg Tablet PO Q4H PRN Mild Pain (1-3) or Fever Albuterol/Ipratropium 3 ml 09/01/25 08:55 09/05/25 08:24 Ipratropium 0.5 Mg/Albuterol Sulfate 2.5 Mg (Base) Ampul.Neb 3 Ml INHALATION 3 ml Q6HRT DARIEN Administration Lidocaine HCl 30 ml/ Al Hydrox 0 ml 08/30/25 17:00 09/03/25 07:00 /Mg Hydrox/Simethicone 30 ml/ PO Not Given Diphenhydramine HCl 75 mg Q4HWA DARIEN On Hold: 09/03/25 07:00 Dextrose 12.5 gm 09/03/25 10:06 Dextrose 50% 25 Gm/50 Ml Syringe IV PUSH PRN PRN Hypoglycemia Protocol Fenofibrate 145 mg 09/01/25 09:00 09/05/25 09:12 Fenofibrate 145 Mg Tablet PO 145 mg QAM DARIEN Administration Glucagon 1 mg 09/03/25 10:06 Glucagon For Inj 1 Mg Vial IM PRN PRN Hypoglycemia Protocol Glucose 15 gm 09/03/25 10:06 Glucose Oral Gel 15 Gm Of Glucse In 37.5 Gm Tube PO PRN PRN Hypoglycemia Protocol Heparin Sodium (Beef Lung) 50 units 09/03/25 09:00 09/05/25 09:14 Heparin Flush 50 Units/5 Ml Syringe IV PUSH 50 units QAM DARIEN Administration Heparin Sodium (Beef Lung) 50 units 09/03/25 07:03 Heparin Flush 50 Units/5 Ml Syringe IV PUSH PRN PRN after intermittent infusion Heparin Sodium (Beef Lung) 50 units 09/03/25 07:03 Heparin Flush 50 Units/5 Ml Syringe IV PUSH PRN PRN after blood draws Heparin Sodium (Porcine) 500 units 09/03/25 07:03 Heparin Sodium Lock Flush 500 Units/5 Ml Syringe IV PUSH PRN PRN see comments below Norepinephrine Bitartrate 8 mg in 250 mls @ 3.75 mls/hr 09/03/25 04:20 09/05/25 02:00 Levophed 8 Mg/D5w 250 Ml IV CONT Infused .Q24H DARIEN Titration Protocol 2 MCG/MIN Fentanyl Citrate 2,500 mcg in 250 mls @ 0 mls/hr 09/03/25 04:40 09/05/25 08:16 Fentanyl 2,500 Mcg/Ns 250 Ml IV CONT 0 mcg/hr .Q0M DARIEN 0 mls/hr Protocol Titration 0 MCG/HR Dextrose 1,000 mls @ 100 mls/hr 09/03/25 10:06 Dextrose 5% 1,000 Ml IVPB PRN PRN Hypoglycemia Protocol Meropenem 1 gm/ Sodium 100 mls @ 200 mls/hr 09/03/25 11:00 09/05/25 11:02 Chloride IVPB 200 mls/hr Q8H DARIEN Administration Midazolam HCl 100 mg in 100 mls @ 0 mls/hr 09/03/25 13:15 09/05/25 08:16 Versed 100 Mg/Ns 100 Ml IV CONT 0 mg/hr .Q0M DARIEN 0 mls/hr Protocol Titration 0 MG/HR Micafungin Sodium 100 mg/ 100 mls @ 100 mls/hr 09/03/25 14:00 09/04/25 20:30 Sodium Chloride IVPB Infused Q24H DARIEN Infusion Vancomycin HCl 1,500 mg in 500 mls @ 250 mls/hr 09/05/25 06:00 09/05/25 05:14 Vancomycin 1,500 Mg/Ns 500 Ml IVPB 250 mls/hr Q18H DARIEN Administration Insulin Aspart 2 - 5 units 09/03/25 10:10 09/05/25 09:13 Insulin Aspart (*Bkc) 100 Units/Ml SUB-Q Not Given Q4HR DARIEN Protocol Lidocaine HCl 1 applic 08/30/25 20:34 08/31/25 09:34 Lidocaine 4% Soln 50 Ml Btl TOPICAL 1 applic PRN PRN Administration Pain Loratadine 10 mg 08/31/25 21:00 09/05/25 09:12 Loratadine 10 Mg Tablet PO 10 mg QAM DARIEN Administration Metoprolol Succinate 25 mg 08/31/25 13:45 09/02/25 11:31 Metoprolol Succinate Ext Rel 25 Mg Tabcr PO Not Given On Hold: 09/03/25 03:09 QAM DARIEN Multi-Ingred Cream/Lotion/Oil/Oint 1 applic 09/03/25 09:00 09/05/25 09:12 Mineral Oil/White Petrolatum Ointment EACH EYE 1 applic Q12HR DARIEN Administration Pantoprazole Sodium 40 mg 09/03/25 21:00 09/05/25 09:14 Pantoprazole Sodium Iv 40 Mg Vial IV PUSH 40 mg Q12HR DARIEN Administration Perflutren Lipid Microsphere 0 ml 09/02/25 13:55 Perflutren Lipid Microspheres 1.5 Ml Vial Diluted To 10 Ml Total Volume IV PUSH 09/05/25 13:55 ONCE PRN adequate visualization Protocol Sodium Chloride 10 ml 09/03/25 14:00 09/05/25 04:57 Central Line Flush IV PUSH 10 ml Q8HR DARIEN Administration Tamsulosin HCl 0.4 mg 09/01/25 09:00 09/05/25 09:12 Tamsulosin Hcl 0.4 Mg Capsule PO 0.4 mg DAILY DARIEN Administration Vitamin D 125 mcg 09/01/25 09:00 09/05/25 09:12 Cholecalciferol (Vitamin D3) 125 Mcg (5,000 Units) Tablet PO 125 mcg DAILY DARIEN Administration Radiology Results: ITS Impressions Head CT 09/03/25 06:23 IMPRESSION: 1. No acute intracranial findings. Head/Neck CTA 09/03/25 06:30 IMPRESSION: CT HEAD: 1. No acute intracranial findings. CTA NECK: 1. Motion artifact along carotid bulbs. Stenosis or even dissection not excluded. Recommend carotid ultrasound. CTA HEAD: 1. No large vessel arterial occlusive disease or other acute findings. 2. No aneurysms. Chest CT 09/03/25 07:26 IMPRESSION: 1. Significant decrease in lung volumes with prominent dependent atelectasis including partial collapse of the bilateral lower lobes. Superimposed pneumonia not excludable. 2. No significant change in small left and moderate-sized right pleural effusions. 3. Moderate amount of ascites in the upper abdomen. 4. Scattered sclerotic bone lesions consistent with known metastatic prostate cancer and with chronic pathologic fracture at T10. Carotid Doppler Study 09/03/25 17:25 IMPRESSION: 1. >=70% (but less than near occlusion) stenosis in the right internal carotid artery. 2. >=70% (but less than near occlusion) stenosis in the left internal carotid artery. 3. The degree of stenosis indicated by the increased velocities is greater than would be expected given the amount of calcified atherosclerotic plaque evident on the prior CT angiogram. This suggests that the lower density linear filling defects at the bilateral carotid bulbs seen on the prior CT angiogram are not artifactual and likely to represent small dissection flaps. Abdomen X-Ray 09/04/25 07:07 IMPRESSION: 1: NG tube tip in the stomach. 2: Bibasilar airspace disease may represent edema or pneumonia. Labs Labs: Laboratory Results - last 24 hr 09/03/25 09/03/25 09/04/25 05:44 05:45 09:20 WBC RBC Hgb Hct MCV MCH MCHC RDW Plt Count MPV Immature Gran % (Auto) Neut % (Auto) Lymph % (Auto) [place] % (Auto) Eos % (Auto) Baso % (Auto) Lymph # (Auto) [place] # (Auto) Eos # (Auto) Baso # (Auto) Abs Immat Gran (auto) Absolute Neuts (auto) Absolute Nucleated RBC Band Neutrophils % Nucleated RBC % Platelet Estimate Hypochromasia Anisocytosis Schistocytes PT INR APTT Puncture Site ABG pH ABG pCO2 ABG pO2 ABG PO2/FiO2 Ratio ABG HCO3 ABG O2 Saturation ABG O2 Content ABG Base Excess A-a Gradient Oxyhemoglobin Carboxyhemoglobin Methemoglobin Reduced Hemoglobin Total Hemoglobin O2 Delivery Device O2 Liters/Min Minute Volume Vent Rate Vent Mode FiO2 Tidal Volume PEEP Peak Inspir Pressure Pressure Support Sodium Potassium Chloride Carbon Dioxide Anion Gap BUN Creatinine Estim Creat Clear Calc Estimated GFR Glucose POC Capillary Glucose Lactic Acid Calcium Phosphorus Magnesium Total Bilirubin AST ALT Alkaline Phosphatase C-Reactive Protein Total Protein Albumin Fluid Total Protein 1.7 Fluid Albumin 1.2 Fluid LDH 92 Bronch Specimen Source Bronchial lavage Bronchial Fluid Color Colorless Bronchial Fluid Appearance Cloudy Bronchial Neutrophils 24 Bronchial Lymphocytes 37 Bronchial Monocytes 9 Bronchial Eosinophils 1 Bronchial Macrophages 6 Bronchial Other Cells 23 Vancomycin Trough 09/04/25 09/04/25 09/04/25 11:59 16:00 17:57 WBC RBC Hgb Hct MCV MCH MCHC RDW Plt Count MPV Immature Gran % (Auto) Neut % (Auto) Lymph % (Auto) [place] % (Auto) Eos % (Auto) Baso % (Auto) Lymph # (Auto) [place] # (Auto) Eos # (Auto) Baso # (Auto) Abs Immat Gran (auto) Absolute Neuts (auto) Absolute Nucleated RBC Band Neutrophils % Nucleated RBC % Platelet Estimate Hypochromasia Anisocytosis Schistocytes PT INR APTT Puncture Site ABG pH ABG pCO2 ABG pO2 ABG PO2/FiO2 Ratio ABG HCO3 ABG O2 Saturation ABG O2 Content ABG Base Excess A-a Gradient Oxyhemoglobin Carboxyhemoglobin Methemoglobin Reduced Hemoglobin Total Hemoglobin O2 Delivery Device O2 Liters/Min Minute Volume Vent Rate Vent Mode FiO2 Tidal Volume PEEP Peak Inspir Pressure Pressure Support Sodium Potassium Chloride Carbon Dioxide Anion Gap BUN Creatinine Estim Creat Clear Calc Estimated GFR Glucose POC Capillary Glucose 136 H 132 H Lactic Acid Calcium Phosphorus Magnesium Total Bilirubin AST ALT Alkaline Phosphatase C-Reactive Protein Total Protein Albumin Fluid Total Protein Fluid Albumin Fluid LDH Bronch Specimen Source Bronchial Fluid Color Bronchial Fluid Appearance Bronchial Neutrophils Bronchial Lymphocytes Bronchial Monocytes Bronchial Eosinophils Bronchial Macrophages Bronchial Other Cells Vancomycin Trough .3 H 09/04/25 09/05/25 09/05/25 20:19 00:20 04:46 WBC RBC Hgb Hct MCV MCH MCHC RDW Plt Count MPV Immature Gran % (Auto) Neut % (Auto) Lymph % (Auto) [place] % (Auto) Eos % (Auto) Baso % (Auto) Lymph # (Auto) [place] # (Auto) Eos # (Auto) Baso # (Auto) Abs Immat Gran (auto) Absolute Neuts (auto) Absolute Nucleated RBC Band Neutrophils % Nucleated RBC % Platelet Estimate Hypochromasia Anisocytosis Schistocytes PT INR APTT Puncture Site Left radial ABG pH 7.490 H ABG pCO2 32.3 L ABG pO2 92.0 ABG PO2/FiO2 Ratio 3.07 ABG HCO3 24.1 ABG O2 Saturation 97.6 ABG O2 Content 11.4 L ABG Base Excess 0.9 A-a Gradient 84.0 Oxyhemoglobin 96.1 Carboxyhemoglobin 1.1 Methemoglobin 0.1 Reduced Hemoglobin 2.7 Total Hemoglobin 8.3 L O2 Delivery Device Ventilator O2 Liters/Min Not Reportable Minute Volume Not Reportable Vent Rate 18 Vent Mode Cmv FiO2 30 Tidal Volume 400 PEEP 5 Peak Inspir Pressure Not Reportable Pressure Support Not Reportable Sodium Potassium Chloride Carbon Dioxide Anion Gap BUN Creatinine Estim Creat Clear Calc Estimated GFR Glucose POC Capillary Glucose 134 H 129 H Lactic Acid Calcium Phosphorus Magnesium Total Bilirubin AST ALT Alkaline Phosphatase C-Reactive Protein Total Protein Albumin Fluid Total Protein Fluid Albumin Fluid LDH Bronch Specimen Source Bronchial Fluid Color Bronchial Fluid Appearance Bronchial Neutrophils Bronchial Lymphocytes Bronchial Monocytes Bronchial Eosinophils Bronchial Macrophages Bronchial Other Cells Vancomycin Trough 09/05/25 09/05/25 09/05/25 04:49 05:17 05:18 WBC 19.1 H RBC 2.49 L Hgb 7.8 L Hct 23.8 L MCV 95.6 MCH 31.3 MCHC 32.8 RDW 20.3 H Plt Count 180 MPV 11.1 H Immature Gran % (Auto) 6.5 H Neut % (Auto) 75.0 H Lymph % (Auto) 4.2 L [place] % (Auto) 13.7 H Eos % (Auto) 0.0 Baso % (Auto) 0.6 Lymph # (Auto) 0.80 L [place] # (Auto) 2.6 H Eos # (Auto) 0.0 Baso # (Auto) 0.1 Abs Immat Gran (auto) 1.25 H Absolute Neuts (auto) 14.3 H Absolute Nucleated RBC 0.280 H Band Neutrophils % Not Reportable Nucleated RBC % 1.5 H Platelet Estimate Adequate Hypochromasia 1+ Anisocytosis 2+ Schistocytes None seen PT 19.4 H INR 1.6 APTT 44.9 H Puncture Site ABG pH ABG pCO2 ABG pO2 ABG PO2/FiO2 Ratio ABG HCO3 ABG O2 Saturation ABG O2 Content ABG Base Excess A-a Gradient Oxyhemoglobin Carboxyhemoglobin Methemoglobin Reduced Hemoglobin Total Hemoglobin O2 Delivery Device O2 Liters/Min Minute Volume Vent Rate Vent Mode FiO2 Tidal Volume PEEP Peak Inspir Pressure Pressure Support Sodium 139 Potassium 4.1 Chloride 109 H Carbon Dioxide 26 Anion Gap 4 BUN 25 H Creatinine 0.83 Estim Creat Clear Calc 65 Estimated GFR > 60 Glucose 100 POC Capillary Glucose 112 H Lactic Acid 0.9 Calcium 7.0 L Phosphorus 2.0 L Magnesium 2.4 H Total Bilirubin 0.8 AST 62 H ALT 15 Alkaline Phosphatase 86 C-Reactive Protein 5.5 H Total Protein 4.4 L Albumin 2.7 L Fluid Total Protein Fluid Albumin Fluid LDH Bronch Specimen Source Bronchial Fluid Color Bronchial Fluid Appearance Bronchial Neutrophils Bronchial Lymphocytes Bronchial Monocytes Bronchial Eosinophils Bronchial Macrophages Bronchial Other Cells Vancomycin Trough 09/05/25 09:05 WBC RBC Hgb Hct MCV MCH MCHC RDW Plt Count MPV Immature Gran % (Auto) Neut % (Auto) Lymph % (Auto) [place] % (Auto) Eos % (Auto) Baso % (Auto) Lymph # (Auto) [place] # (Auto) Eos # (Auto) Baso # (Auto) Abs Immat Gran (auto) Absolute Neuts (auto) Absolute Nucleated RBC Band Neutrophils % Nucleated RBC % Platelet Estimate Hypochromasia Anisocytosis Schistocytes PT INR APTT Puncture Site ABG pH ABG pCO2 ABG pO2 ABG PO2/FiO2 Ratio ABG HCO3 ABG O2 Saturation ABG O2 Content ABG Base Excess A-a Gradient Oxyhemoglobin Carboxyhemoglobin Methemoglobin Reduced Hemoglobin Total Hemoglobin O2 Delivery Device O2 Liters/Min Minute Volume Vent Rate Vent Mode FiO2 Tidal Volume PEEP Peak Inspir Pressure Pressure Support Sodium Potassium Chloride Carbon Dioxide Anion Gap BUN Creatinine Estim Creat Clear Calc Estimated GFR Glucose POC Capillary Glucose 93 Lactic Acid Calcium Phosphorus Magnesium Total Bilirubin AST ALT Alkaline Phosphatase C-Reactive Protein Total Protein Albumin Fluid Total Protein Fluid Albumin Fluid LDH Bronch Specimen Source Bronchial Fluid Color Bronchial Fluid Appearance Bronchial Neutrophils Bronchial Lymphocytes Bronchial Monocytes Bronchial Eosinophils Bronchial Macrophages Bronchial Other Cells Vancomycin Trough Quality VTE Prophylaxis VTE prophylaxis: mechanical ordered
[2025-09-05] MEDS: MICAFUNGIN SODIUM 100 MG in SODIUM CHLORIDE 0.9% IV 100 ML IVPB (13:10)
[2025-09-05] MEDS: dexmedeTOMIDine 400 MCG/100 ML 400 MCG/100 ML BAG IV CONT (14:20)
[2025-09-06] VITALS (52 sets, daily range): BP systolic 64–136; BP diastolic 44–81; PULSE 77–150; RESP 12–22; TEMP 36.6–37.2; O2SAT 98–100
[2025-09-06] MEDS: IPRATROPIUM 0.5 MG/ALBUTEROL SULFATE 2.5 MG (BASE) AMPUL.NEB 3 ML INHALATION ×4 (02:12→20:46)
[2025-09-06] MEDS: MEROPENEM 1 GM in SODIUM CHLORIDE 0.9% IV 100 ML 200 ML IVPB ×3 (03:23→18:09)
[2025-09-06] MEDS: dexmedeTOMIDine 400 MCG/100 ML 400 MCG/100 ML BAG 8.01 MCG IV CONT ×2 (03:26→19:36)
[2025-09-06 05:16] LABS: Alveolar/Arterial O2 Gradient 86.0 mmHg; Arterial Blood Gas Tidal Volume 400 ml; Arterial Blood Gas Ventilator rate 18 /MIN; Carboxyhemoglobin 0.5 % THb (0-2.0); Fractional Inspired Oxygen 30 %; HCO3 ABG 23.3 mEq/l (22.0-26.0); Methemoglobin ABG 0.3 %THb (0-1.5); Oxygen Content ABG 13.6 %vol (16.0-22.0); Oxygen Saturation ABG 97.3 % (95.0-100.0); PCO2 ABG 33.1 mmHg (35.0-45.0); PO2 ABG 89.0 mmHg (80.0-100.0); PO2 FiO2 Ratio Arterial Blood 2.97 %; Reduced Hemoglobin 3.2 %THb (0-5.0); Site Drawn RIGHT BRACHIAL
[2025-09-06 06:02] LABS: Hematocrit 28.6 % (42.0-52.0); Hemoglobin 9.2 g/dL (14.0-18.0); Immature Granulocyte Percent A 9.1 % (0-0.5); Lymphocytes Absolute Auto 0.99 K/mm3 (0.9-3.2); Mean Corpuscular HGB Conc 32.2 g/dl (32-36); Mean Corpuscular Hemoglobin 31.1 pg (26-34); Mean Corpuscular Volume 96.6 fl (80-100); Nucleated Red Blood Cells Absolute Auto 0.120 K/mm3 (0.0-0.012); Nucleated Red Blood Cells Perc 0.7 % (0.0-0.2); Platelet Count Result 155 k/mm3 (150-375); Red Blood Count 2.96 M/mm3 (4.6-6.20); White Blood Count 16.8 K/mm3 (4.5-10.0)
[2025-09-06] MEDS: CENTRAL LINE FLUSH 10 ML IV PUSH ×3 (06:05→22:55)
[2025-09-06 06:13] LABS: Alanine Aminotransferase 30 U/L (6-50); Albumin Level 2.6 g/dL (3.5-5.1); Alkaline Phosphatase 93 U/L (38-126); Anion Gap 2 mmol/L (4-12); Aspartate Amino Transferase 121 U/L (17-59); Bilirubin,Total 0.8 mg/dL (0.2-1.3); Blood Urea Nitrogen 26 mg/dL (9-20); Calcium 7.0 mg/dL (8.4-10.2); Carbon Dioxide 27 mmol/L (22-30); Chloride 111 mmol/L (98-107); Estimated CRCL calculation 75 ml/min; Estimated Glomerular Filt Rate > 60; Glucose 111 mg/dL (65-110); Magnesium 2.3 mg/dL (1.6-2.3); Potassium 3.9 mmol/L (3.4-5.0); Sodium 140 mmol/L (137-145); Total Protein 4.6 g/dL (6.3-8.2)
[2025-09-06 06:18] LABS: INR 1.5; Prothrombin Time 18.3 Seconds (11.1-14.7)
[2025-09-06 06:19] LABS: Partial Thromboplastin Time 43.3 Seconds (22.3-36.8)
[2025-09-06 06:21] LABS: Hypochromasia 1+; Schistocytes None Seen
[2025-09-06] MEDS: PANTOPRAZOLE SODIUM IV 40 MG VIAL IV PUSH ×2 (08:06→20:09)
[2025-09-06] MEDS: CHOLECALCIFEROL (VITAMIN D3) 125 MCG (5,000 UNITS) TABLET PO (08:06)
[2025-09-06] MEDS: POTASSIUM/PHOSPHORUS/SODIUM 1.5 GM PACKET 2 PACKET PO ×2 (08:06→17:09)
[2025-09-06] MEDS: FENOFIBRATE 145 MG TABLET PO (08:06)
[2025-09-06] MEDS: LORATADINE 10 MG TABLET PO (08:06)
[2025-09-06] MEDS: TAMSULOSIN HCL 0.4 MG CAPSULE PO (08:06)
[2025-09-06] MEDS: MINERAL OIL/WHITE PETROLATUM OINTMENT 1 APPLIC EACH EYE ×2 (08:06→20:10)
[2025-09-06] MEDS: CALCIUM GLUC 2,000 MG/NS 100ML 2,000 MG/100 ML BAG 100 MG IVPB (08:07)
[2025-09-06] MEDS: FUROSEMIDE INJ 40 MG/4 ML VIAL 20 MG IV PUSH (10:33)
--- NOTE | 2025-09-06 11:05 | P.PNINT_ITS ---
Progress Note: A&P Assessment and Plan (1) Septic shock: Code(s): A41.9 - Sepsis, unspecified organism; R65.21 - Severe sepsis with septic shock Status: Acute Assessment and Plan: 09/03/2025: Patient was transferred from medical floor to ICU where he was intubated, found to be hypotensive, received albumin -and IV fluid bolus, started on Levophed -patient does have a port, will use that for the pressors -off Levophed -patient was on azithromycin, cefepime and vancomycin per Infectious Disease -09/03: Switched antibiotics to meropenem, vancomycin and micafungin -(completed a course of azithromycin) -appreciate ID following the patient along with the recommendations -micafungin for balanitis per Infectious Disease -08/30: Blood cultures negative x2 -09/03: Blood cultures obtained and pending 09/04: Respiratory cultures from BAL pending (2) Acute respiratory failure: Code(s): J96.00 - Acute respiratory failure, unspecified whether with hypoxia or hypercapnia Status: Acute Assessment and Plan: Patient is transferred from medical floor after being found hypoxic, hypotensive and less responsive/altered mental status -increasing O2 requirements on Airvo -09/03: Patient was intubated by ER physician in the ICU -currently on CMV mode of ventilation, peep of 5, 35% FiO2. -ABGs, chest x-ray and CT chest reviewed. -continue bronchodilator -09/03: Status post right thoracentesis this by ER physician, drained 600 mL yellow sticky fluid -09/04: Bronchoscopy performed by pulmonology, BAL cultures have been obtained and pending -appreciate pulmonology evaluation and recommendation 09/06: Place patient on SBT, tolerating well, will evaluate for extubation, on low-dose Precedex at this time -will gently diurese today 09/03/2025: CT chest with contrast -IMPRESSION: 1. Significant decrease in lung volumes with prominent dependent atelectasis including partial collapse of the bilateral lower lobes. Superimposed pneumonia not excludable. 2. No significant change in small left and moderate-sized right pleural effusions. 3. Moderate amount of ascites in the upper abdomen. 4. Scattered sclerotic bone lesions consistent with known metastatic prostate cancer and with chronic pathologic fracture at T10. 09/02: IMPRESSION: Moderate loculated right pleural effusion and small left pleural effusion. Patchy infiltrates are present bilaterally. There is mediastinal lymphadenopathy. Sclerotic changes within the T9 vertebral body suggestive of metastasis. (3) Pleural effusion: Code(s): J90 - Pleural effusion, not elsewhere classified Status: Acute Assessment and Plan: 09/03: Thoracentesis perform a ER physician early hours with a removal of 600 mL in yellow sticky fluid -according to Light's criteria pleural protein/serum protein ratio<0.5, pleural LDH/serum LDH < 0.6. The effusion is likely a transudate -fluid gram stain did not show any organism, cultures are still pending -according the hospitalist, pleural fluid looked like an exudate. Will confirm with pleural fluid studies -continue antibiotics as above (4) Pneumonia: Code(s): J18.9 - Pneumonia, unspecified organism Status: Acute Assessment and Plan: Consolidation noted on CT scan of the chest -continue antibiotics as above -appreciate pulmonology evaluation and recommendations, -bronchoscopy done on 09/04 since patient is immunocompromised due to chemotherapy (5) Encephalopathy: Code(s): G93.40 - Encephalopathy, unspecified Status: Acute Assessment and Plan: Encephalopathy could be multifactorial, septic shock, hypotension, hypoxia -currently intubated, not on any sedation. -will maintain Euthermia, adequate blood pressures, adequate oxygenation -upon sedation vacation, patient does open his eyes and follows simple commands IMPRESSION: CT HEAD: 1. No acute intracranial findings. CTA NECK: 1. Motion artifact along carotid bulbs. Stenosis or even dissection not excluded. Recommend carotid ultrasound. CTA HEAD: 1. No large vessel arterial occlusive disease or other acute findings. 2. No aneurysms. (6) Coagulopathy: Code(s): D68.9 - Coagulation defect, unspecified Status: Acute Assessment and Plan: PTT elevated, continue to monitor, patient not on any anticoagulation at this time -improving (7) Anemia: Code(s): D64.9 - Anemia, unspecified Status: Acute Assessment and Plan: 09/03: Hemoglobin dropped to 6.9 this morning from 7.5. Transfused 1 unit of packed RBCs -hemoglobin has been stable and gradually improving -continue to monitor (8) Protein calorie malnutrition: Code(s): E46 - Unspecified protein-calorie malnutrition Status: Acute Assessment and Plan: Protein calorie malnutrition, BMI of 23.6 -likely moderate protein calorie malnutrition -09/04: Tolerating tube feeds -will replace phosphorus and calcium today (9) Metastatic malignant neoplasm to prostate: Code(s): C79.82 - Secondary malignant neoplasm of genital organs Status: Acute Assessment and Plan: Patient has metastatic prostate cancer, being treated by Dr. Walsh with pall iative chemotherapy (10) Candidal balano-posthitis: Code(s): B37.49 - Other urogenital candidiasis Status: Acute Assessment and Plan: Continue micafungin per Infectious Disease (11) COPD (chronic obstructive pulmonary disease): Code(s): J44.9 - Chronic obstructive pulmonary disease, unspecified Status: Acute Assessment and Plan: Continue DuoNebs, on mechanical ventilation Plan DVT prophylaxis: SCDs, no chemoprophylaxis due to anemia and drop in hemoglobin Stress ulcer prophylaxis: Protonix IV q.12 hours Nutrition: Currently tolerating tube feed Code Status: DNR Critical Care Time Spent: 33 minutes Discussed with daughter and son and updated them with his condition and plan of care. The are aware that he is going to be placed on spontaneous breathing trial and evaluate for extubation. Due to a high probability of clinically significant, life threatening deterioration, the patient required my highest level of preparedness to intervene emergently and I personally spent this critical care time directly and personally managing the patient. This critical care time included obtaining a history; examining the patient; pulse oximetry; ordering and review of studies; arranging urgent treatment with development of a management plan; evaluation of patient's response to treatment; frequent reassessment; and discussions with other providers. It was exclusive of separately billable procedures and treating other patients and teaching time. Please see Assessment and Plan section and the rest of the note for further information on patient assessment and treatment This dictation may have been done utilizing a voice recognition system. Attempts have been made to correct errors. However, there may be uncorrected grammatical, spelling, and recognitions errors present. Subjective Date/time seen: 09/06/25 11:05 Interval history: Reason for consult: Acute respiratory failure, septic shock, encephalopathy, recent chemotherapy, neutropenia, fungal balanitis 09/06/2025: Patient seen examined the ICU. Remains intubated on CMV mode of ventilation, peep of 5, 30% FiO2. Patient on Precedex infusion, more awake, opens his eyes, follows simple commands. Pupils are equal and reactive this morning. Remains off Levophed, urine output has been low, normal body temperature. WBC count trending down, hemoglobin remained stable. Review of Systems Review of Systems: ROS unobtainable: Yes unobtainable due to endotracheal tube, unobtainable due to medical condition and unobtainable due to mental status Exam Narrative: General: Ill-appearing elderly patient, intubated HEENT:? Pupils equal and reactive bilaterally. Sclera is clear, eyes are sunken, ETT in place Neck:? Supple Respiratory:? Coarse breath sounds bilaterally, rales auscultated bilaterally, no wheezing, adequate air entry otherwise Cardiac:? S1-S2 is normal, regular rate and rhythm Abdomen: Soft, nontender, non distended, hypoactive bowel sounds Extremities:? No edema, palpable pedal pulse Neuro:? Intubated, on Precedex infusion, opens his eyes and follows simple commands Skin:? Skin tears noted on the feet bilaterally, Psych:? Unable to assess at this time Objective Data Vital Signs Vital Signs: Vital Signs - 24 hr 09/05/25 11:25 09/05/25 12:00 09/05/25 12:00 Temperature Pulse Rate 87 103 H Respiratory Rate 14 Blood Pressure 101/63 Pulse Oximetry 99 Oxygen Delivery Mechanical Ventilation Fraction of Inspired Oxygen 30 30 09/05/25 12:00 09/05/25 12:00 09/05/25 12:00 Temperature Pulse Rate 116 H 105 H Respiratory Rate 18 Blood Pressure Pulse Oximetry 99 Oxygen Delivery Mechanical Ventilation Fraction of Inspired Oxygen 30 09/05/25 12:15 09/05/25 12:30 09/05/25 12:45 Temperature Pulse Rate 106 H 103 H 109 H Respiratory Rate 14 14 14 Blood Pressure 102/64 93/57 L 108/69 Pulse Oximetry 100 100 Oxygen Delivery Fraction of Inspired Oxygen 09/05/25 12:56 09/05/25 13:00 09/05/25 13:15 Temperature Pulse Rate 105 H 125 H 114 H Respiratory Rate 18 14 14 Blood Pressure 120/70 98/66 L Pulse Oximetry 100 Oxygen Delivery Fraction of Inspired Oxygen 09/05/25 13:31 09/05/25 13:36 09/05/25 13:43 Temperature Pulse Rate 94 131 H 125 H Respiratory Rate 14 15 18 Blood Pressure 86/58 L 129/78 Pulse Oximetry 100 99 Oxygen Delivery Fraction of Inspired Oxygen 09/05/25 13:43 09/05/25 14:00 09/05/25 14:00 Temperature 98.4 F Pulse Rate 125 H 97 97 Respiratory Rate 18 16 Blood Pressure 109/62 Pulse Oximetry 100 Oxygen Delivery Fraction of Inspired Oxygen 09/05/25 14:00 09/05/25 14:05 09/05/25 14:05 Temperature Pulse Rate 99 108 H 96 Respiratory Rate 14 18 Blood Pressure Pulse Oximetry 100 99 Oxygen Delivery Mechanical Ventilation Fraction of Inspired Oxygen 30 09/05/25 14:14 09/05/25 14:16 09/05/25 14:20 Temperature Pulse Rate 115 H 104 H 110 H Respiratory Rate 19 14 14 Blood Pressure 119/70 109/62 Pulse Oximetry 100 100 Oxygen Delivery Fraction of Inspired Oxygen 09/05/25 14:23 09/05/25 14:31 09/05/25 14:46 Temperature Pulse Rate 108 H 116 H 110 H Respiratory Rate 18 17 18 Blood Pressure 117/73 97/58 L Pulse Oximetry 100 100 Oxygen Delivery Fraction of Inspired Oxygen 09/05/25 15:00 09/05/25 15:16 09/05/25 16:00 Temperature 98.4 F Pulse Rate 112 H 117 H Respiratory Rate 16 15 Blood Pressure 128/81 106/66 Pulse Oximetry 100 100 Oxygen Delivery Fraction of Inspired Oxygen 30 09/05/25 16:00 09/05/25 16:00 09/05/25 16:00 Temperature 98.4 F Pulse Rate 126 H 128 H Respiratory Rate 18 18 Blood Pressure 109/62 Pulse Oximetry 100 100 Oxygen Delivery Mechanical Ventilation Fraction of Inspired Oxygen 30 09/05/25 16:00 09/05/25 17:00 09/05/25 17:19 Temperature 98.4 F Pulse Rate 113 H 105 H 98 Respiratory Rate 18 Blood Pressure 112/66 Pulse Oximetry 100 99 Oxygen Delivery Mechanical Ventilation Fraction of Inspired Oxygen 30 09/05/25 18:00 09/05/25 18:00 09/05/25 18:00 Temperature 98.4 F Pulse Rate 99 99 99 Respiratory Rate 18 18 Blood Pressure 94/55 L Pulse Oximetry 100 Oxygen Delivery Fraction of Inspired Oxygen 09/05/25 19:00 09/05/25 20:00 09/05/25 20:00 Temperature 98.4 F Pulse Rate 115 H Respiratory Rate 18 Blood Pressure 129/76 Pulse Oximetry 97 97 Oxygen Delivery Mechanical Ventilation Fraction of Inspired Oxygen 30 30 09/05/25 20:00 09/05/25 20:00 09/05/25 20:00 Temperature 98.2 F Pulse Rate 95 95 95 Respiratory Rate 18 18 Blood Pressure 111/63 Pulse Oximetry 99 Oxygen Delivery Fraction of Inspired Oxygen 09/05/25 20:30 09/05/25 20:49 09/05/25 20:57 Temperature Pulse Rate 121 H 118 H 112 H Respiratory Rate 19 18 Blood Pressure Pulse Oximetry 98 Oxygen Delivery Mechanical Ventilation Fraction of Inspired Oxygen 30 09/05/25 21:00 09/05/25 22:00 09/05/25 22:00 Temperature 98.1 F Pulse Rate 100 108 H 108 H Respiratory Rate 18 18 Blood Pressure 88/50 L 101/60 Pulse Oximetry 97 96 Oxygen Delivery Fraction of Inspired Oxygen 09/05/25 22:00 09/05/25 23:00 09/05/25 23:03 Temperature Pulse Rate 84 83 98 Respiratory Rate 18 18 Blood Pressure 96/55 L Pulse Oximetry 99 99 Oxygen Delivery Mechanical Ventilation Fraction of Inspired Oxygen 30 09/06/25 00:00 09/06/25 00:00 09/06/25 00:00 Temperature 98.5 F Pulse Rate 84 Respiratory Rate 18 Blood Pressure 96/53 L Pulse Oximetry 99 99 Oxygen Delivery Mechanical Ventilation Fraction of Inspired Oxygen 30 30 09/06/25 00:00 09/06/25 00:00 09/06/25 01:00 Temperature Pulse Rate 84 84 81 Respiratory Rate 18 18 Blood Pressure 89/50 L Pulse Oximetry 99 Oxygen Delivery Fraction of Inspired Oxygen 09/06/25 02:00 09/06/25 02:00 09/06/25 02:12 Temperature 98.4 F Pulse Rate 79 81 79 Respiratory Rate 18 18 18 Blood Pressure 93/53 L Pulse Oximetry 100 Oxygen Delivery Fraction of Inspired Oxygen 09/06/25 02:13 09/06/25 02:28 09/06/25 03:00 Temperature Pulse Rate 89 91 81 Respiratory Rate 18 18 Blood Pressure 93/53 L Pulse Oximetry 99 100 Oxygen Delivery Mechanical Ventilation Fraction of Inspired Oxygen 30 09/06/25 03:26 09/06/25 03:26 09/06/25 04:00 Temperature Pulse Rate 81 81 78 Respiratory Rate 18 18 18 Blood Pressure Pulse Oximetry Oxygen Delivery Fraction of Inspired Oxygen 09/06/25 04:00 09/06/25 04:00 09/06/25 04:00 Temperature Pulse Rate 79 Respiratory Rate Blood Pressure Pulse Oximetry 99 Oxygen Delivery Mechanical Ventilation Fraction of Inspired Oxygen 30 30 09/06/25 04:00 09/06/25 05:00 09/06/25 05:05 Temperature 98.5 F Pulse Rate 79 112 H 99 Respiratory Rate 18 18 Blood Pressure 99/58 L 115/61 Pulse Oximetry 100 98 100 Oxygen Delivery Mechanical Ventilation Fraction of Inspired Oxygen 30 09/06/25 06:00 09/06/25 06:00 09/06/25 06:00 Temperature 98 F Pulse Rate 78 111 H 111 H Respiratory Rate 21 H 21 H Blood Pressure 104/64 Pulse Oximetry 100 Oxygen Delivery Fraction of Inspired Oxygen 09/06/25 07:00 09/06/25 08:00 09/06/25 08:00 Temperature 98.0 F Pulse Rate 92 77 77 Respiratory Rate 18 18 18 Blood Pressure 87/50 L 84/50 L Pulse Oximetry 100 100 Oxygen Delivery Fraction of Inspired Oxygen 09/06/25 08:00 09/06/25 08:00 09/06/25 08:00 Temperature Pulse Rate 81 Respiratory Rate Blood Pressure Pulse Oximetry 100 Oxygen Delivery Mechanical Ventilation Fraction of Inspired Oxygen 30 30 09/06/25 08:07 09/06/25 08:08 09/06/25 08:22 Temperature Pulse Rate 88 84 100 Respiratory Rate 16 18 Blood Pressure Pulse Oximetry 100 100 Oxygen Delivery Mechanical Ventilation Fraction of Inspired Oxygen 30 09/06/25 08:45 09/06/25 09:05 09/06/25 10:00 Temperature 98.5 F 98.5 F Pulse Rate 97 105 H 91 Respiratory Rate 17 13 13 Blood Pressure 106/64 93/57 L Pulse Oximetry 100 100 Oxygen Delivery Fraction of Inspired Oxygen 09/06/25 10:00 09/06/25 10:00 09/06/25 10:14 Temperature Pulse Rate 91 91 90 Respiratory Rate 13 Blood Pressure Pulse Oximetry 100 Oxygen Delivery Mechanical Ventilation Fraction of Inspired Oxygen 30 Intake/Output Intake/Output: Intake & Output 09/03/25 09/04/25 09/05/25 09/06/25 23:59 23:59 23:59 23:59 Intake Total 2523.0 824.3 1981.1333 951.0 Output Total 800 450 525 300 Balance 1723.0 374.3 1456.1333 651.0 Meds/Results Medications: Active Medications Generic Name Dose Route Start Last Admin Trade Name Freq PRN Reason Stop Dose Admin Acetaminophen 650 mg 08/30/25 10:58 Acetaminophen 325 Mg Tablet PO Q4H PRN Mild Pain (1-3) or Fever Albuterol/Ipratropium 3 ml 09/01/25 08:55 09/06/25 08:02 Ipratropium 0.5 Mg/Albuterol Sulfate 2.5 Mg (Base) Ampul.Neb 3 Ml INHALATION 3 ml Q6HRT DARIEN Administration Lidocaine HCl 30 ml/ Al Hydrox 0 ml 08/30/25 17:00 09/03/25 07:00 /Mg Hydrox/Simethicone 30 ml/ PO Not Given Diphenhydramine HCl 75 mg Q4HWA DARIEN On Hold: 09/03/25 07:00 Dextrose 12.5 gm 09/03/25 10:06 Dextrose 50% 25 Gm/50 Ml Syringe IV PUSH PRN PRN Hypoglycemia Protocol Fenofibrate 145 mg 09/01/25 09:00 09/06/25 08:06 Fenofibrate 145 Mg Tablet PO 145 mg QAM DARIEN Administration Glucagon 1 mg 09/03/25 10:06 Glucagon For Inj 1 Mg Vial IM PRN PRN Hypoglycemia Protocol Glucose 15 gm 09/03/25 10:06 Glucose Oral Gel 15 Gm Of Glucse In 37.5 Gm Tube PO PRN PRN Hypoglycemia Protocol Heparin Sodium (Beef Lung) 50 units 09/03/25 09:00 09/06/25 08:07 Heparin Flush 50 Units/5 Ml Syringe IV PUSH Not Given QAM DARIEN Heparin Sodium (Beef Lung) 50 units 09/03/25 07:03 Heparin Flush 50 Units/5 Ml Syringe IV PUSH PRN PRN after intermittent infusion Heparin Sodium (Beef Lung) 50 units 09/03/25 07:03 Heparin Flush 50 Units/5 Ml Syringe IV PUSH PRN PRN after blood draws Heparin Sodium (Porcine) 500 units 09/03/25 07:03 Heparin Sodium Lock Flush 500 Units/5 Ml Syringe IV PUSH PRN PRN see comments below Dextrose 1,000 mls @ 100 mls/hr 09/03/25 10:06 Dextrose 5% 1,000 Ml IVPB PRN PRN Hypoglycemia Protocol Meropenem 1 gm/ Sodium 100 mls @ 200 mls/hr 09/03/25 11:00 10/26/25 10:33 Chloride IVPB 200 mls/hr Q8H DARIEN Administration Micafungin Sodium 100 mg/ 100 mls @ 100 mls/hr 09/03/25 14:00 09/05/25 14:10 Sodium Chloride IVPB Infused Q24H DARIEN Infusion Vancomycin HCl 1,500 mg in 500 mls @ 250 mls/hr 09/05/25 06:00 09/06/25 03:24 Vancomycin 1,500 Mg/Ns 500 Ml IVPB Infused Q18H DARIEN Infusion Dexmedetomidine HCl 400 mcg in 100 mls @ 4.005 mls/hr 09/05/25 13:40 09/06/25 10:00 Precedex 400 Mcg/100 Ml IV CONT 0.2 mcg/kg/hr .[id number] DARIEN 4.01 mls/hr Protocol Titration 0.2 MCG/KG/HR Insulin Aspart 2 - 5 units 09/03/25 10:10 09/06/25 08:07 Insulin Aspart (*Bkc) 100 Units/Ml SUB-Q Not Given Q4HR [facility] Protocol Lidocaine HCl 1 applic 08/30/25 20:34 08/31/25 09:34 Lidocaine 4% Soln 50 Ml Btl TOPICAL 1 applic PRN PRN Administration Pain Loratadine 10 mg 08/31/25 21:00 09/06/25 08:06 Loratadine 10 Mg Tablet PO 10 mg QAM DARIEN Administration Metoprolol Succinate 25 mg 08/31/25 13:45 09/02/25 11:31 Metoprolol Succinate Ext Rel 25 Mg Tabcr PO Not Given On Hold: 09/03/25 03:09 QAM [facility] Multi-Ingred Cream/Lotion/Oil/Oint 1 applic 09/03/25 09:00 09/06/25 08:06 Mineral Oil/White Petrolatum Ointment EACH EYE 1 applic Q12HR DARIEN Administration Pantoprazole Sodium 40 mg 09/03/25 21:00 09/06/25 08:06 Pantoprazole Sodium Iv 40 Mg Vial IV PUSH 40 mg Q12HR DARIEN Administration Potassium Phos/Sodium Phos 2 packet 09/06/25 09:00 09/06/25 08:06 Potassium/Phosphorus/Sodium 1.5 Gm Packet PO 09/06/25 17:01 2 packet BID DARIEN Administration Sodium Chloride 10 ml 09/03/25 14:00 09/06/25 06:05 Central Line Flush IV PUSH 10 ml Q8HR DARIEN Administration Tamsulosin HCl 0.4 mg 09/01/25 09:00 09/06/25 08:06 Tamsulosin Hcl 0.4 Mg Capsule PO 0.4 mg DAILY DARIEN Administration Vitamin D 125 mcg 09/01/25 09:00 09/06/25 08:06 Cholecalciferol (Vitamin D3) 125 Mcg (5,000 Units) Tablet PO 125 mcg DAILY DARIEN Administration Radiology Results: ITS Impressions Head CT 09/03/25 06:23 IMPRESSION: 1. No acute intracranial findings. Head/Neck CTA 09/03/25 06:30 IMPRESSION: CT HEAD: 1. No acute intracranial findings. CTA NECK: 1. Motion artifact along carotid bulbs. Stenosis or even dissection not excluded. Recommend carotid ultrasound. CTA HEAD: 1. No large vessel arterial occlusive disease or other acute findings. 2. No aneurysms. Chest CT 09/03/25 07:26 IMPRESSION: 1. Significant decrease in lung volumes with prominent dependent atelectasis including partial collapse of the bilateral lower lobes. Superimposed pneumonia not excludable. 2. No significant change in small left and moderate-sized right pleural effusions. 3. Moderate amount of ascites in the upper abdomen. 4. Scattered sclerotic bone lesions consistent with known metastatic prostate cancer and with chronic pathologic fracture at T10. Carotid Doppler Study 09/03/25 17:25 IMPRESSION: 1. >=70% (but less than near occlusion) stenosis in the right internal carotid artery. 2. >=70% (but less than near occlusion) stenosis in the left internal carotid artery. 3. The degree of stenosis indicated by the increased velocities is greater than would be expected given the amount of calcified atherosclerotic plaque evident on the prior CT angiogram. This suggests that the lower density linear filling defects at the bilateral carotid bulbs seen on the prior CT angiogram are not artifactual and likely to represent small dissection flaps. Abdomen X-Ray 09/04/25 07:07 IMPRESSION: 1: NG tube tip in the stomach. 2: Bibasilar airspace disease may represent edema or pneumonia. Labs Labs: Laboratory Results - last 24 hr 09/03/25 09/05/25 09/05/25 03:04 13:09 17:22 WBC RBC Hgb Hct MCV MCH MCHC RDW Plt Count MPV Immature Gran % (Auto) Neut % (Auto) Lymph % (Auto) Stephenson % (Auto) Eos % (Auto) Baso % (Auto) Lymph # (Auto) Stephenson # (Auto) Eos # (Auto) Baso # (Auto) Abs Immat Gran (auto) Absolute Neuts (auto) Absolute Nucleated RBC Band Neutrophils % Nucleated RBC % Platelet Estimate Hypochromasia Schistocytes PT INR APTT Puncture Site ABG pH ABG pCO2 ABG pO2 ABG PO2/FiO2 Ratio ABG HCO3 ABG O2 Saturation ABG O2 Content ABG Base Excess A-a Gradient Oxyhemoglobin Carboxyhemoglobin Methemoglobin Reduced Hemoglobin Total Hemoglobin O2 Delivery Device O2 Liters/Min Minute Volume Vent Rate Vent Mode FiO2 Tidal Volume PEEP Peak Inspir Pressure Pressure Support Sodium Potassium Chloride Carbon Dioxide Anion Gap BUN Creatinine Estim Creat Clear Calc Estimated GFR Glucose POC Capillary Glucose 89 100 Lactic Acid Calcium Phosphorus Magnesium Total Bilirubin AST ALT Alkaline Phosphatase Total Protein Albumin Chlamy pneumoniae PCR Not detected Adenovirus (PCR) Not detected B. pertussis DNA (PCR) Not detected B.parapertussis DNA PCR Not detected Coronavirus OC43 (PCR) Not detected Coronavirus HKU1 (PCR) Not detected Coronavirus 229E (PCR) Not detected Coronavirus NL63 (PCR) Not detected Human Metapneumovir PCR Not detected Influenza A (H1) PCR Not detected Influ A (H1/09) PCR Not detected Influenza A (H3) PCR Not detected Influenza Type A (PCR) Not detected Influenza Type B (PCR) Not detected M. pneumoniae (PCR) Not detected Parainfluenza 1 (PCR) Not detected Parainfluenza 2 (PCR) Not detected Parainfluenza 3 (PCR) Not detected Parainfluenza 4 (PCR) Not detected RSV (PCR) Not detected Entero/Rhino (PCR) Not detected SARS-CoV-2 (PCR) Not detected 09/05/25 09/05/25 09/06/25 20:52 23:57 05:04 WBC RBC Hgb Hct MCV MCH MCHC RDW Plt Count MPV Immature Gran % (Auto) Neut % (Auto) Lymph % (Auto) Stephenson % (Auto) Eos % (Auto) Baso % (Auto) Lymph # (Auto) Stephenson # (Auto) Eos # (Auto) Baso # (Auto) Abs Immat Gran (auto) Absolute Neuts (auto) Absolute Nucleated RBC Band Neutrophils % Nucleated RBC % Platelet Estimate Hypochromasia Schistocytes PT INR APTT Puncture Site Right brachial ABG pH 7.465 H ABG pCO2 33.1 L ABG pO2 89.0 ABG PO2/FiO2 Ratio 2.97 ABG HCO3 23.3 ABG O2 Saturation 97.3 ABG O2 Content 13.6 L ABG Base Excess -0.1 A-a Gradient 86.0 Oxyhemoglobin 96.0 Carboxyhemoglobin 0.5 Methemoglobin 0.3 Reduced Hemoglobin 3.2 Total Hemoglobin 10.0 L O2 Delivery Device Ventilator O2 Liters/Min Not Reportable Minute Volume Not Reportable Vent Rate 18 Vent Mode Cmv FiO2 30 Tidal Volume 400 PEEP 5 Peak Inspir Pressure Not Reportable Pressure Support Not Reportable Sodium Potassium Chloride Carbon Dioxide Anion Gap BUN Creatinine Estim Creat Clear Calc Estimated GFR Glucose POC Capillary Glucose 113 H 90 Lactic Acid Calcium Phosphorus Magnesium Total Bilirubin AST ALT Alkaline Phosphatase Total Protein Albumin Chlamy pneumoniae PCR Adenovirus (PCR) B. pertussis DNA (PCR) B.parapertussis DNA PCR Coronavirus OC43 (PCR) Coronavirus HKU1 (PCR) Coronavirus 229E (PCR) Coronavirus NL63 (PCR) Human Metapneumovir PCR Influenza A (H1) PCR Influ A (H1/09) PCR Influenza A (H3) PCR Influenza Type A (PCR) Influenza Type B (PCR) M. pneumoniae (PCR) Parainfluenza 1 (PCR) Parainfluenza 2 (PCR) Parainfluenza 3 (PCR) Parainfluenza 4 (PCR) RSV (PCR) Entero/Rhino (PCR) SARS-CoV-2 (PCR) 09/06/25 09/06/25 05:49 07:11 WBC 16.8 H RBC 2.96 L Hgb 9.2 L Hct 28.6 L MCV 96.6 MCH 31.1 MCHC 32.2 RDW 20.6 H Plt Count 155 MPV 10.5 H Immature Gran % (Auto) 9.1 H Neut % (Auto) 72.7 Lymph % (Auto) 5.9 L Stephenson % (Auto) 11.5 H Eos % (Auto) 0.0 Baso % (Auto) 0.8 Lymph # (Auto) 0.99 Stephenson # (Auto) 1.9 H Eos # (Auto) 0.0 Baso # (Auto) 0.1 Abs Immat Gran (auto) 1.53 H Absolute Neuts (auto) 12.2 H Absolute Nucleated RBC 0.120 H Band Neutrophils % Not Reportable Nucleated RBC % 0.7 H Platelet Estimate Adequate Hypochromasia 1+ Schistocytes None seen PT 18.3 H INR 1.5 APTT 43.3 H Puncture Site ABG pH ABG pCO2 ABG pO2 ABG PO2/FiO2 Ratio ABG HCO3 ABG O2 Saturation ABG O2 Content ABG Base Excess A-a Gradient Oxyhemoglobin Carboxyhemoglobin Methemoglobin Reduced Hemoglobin Total Hemoglobin O2 Delivery Device O2 Liters/Min Minute Volume Vent Rate Vent Mode FiO2 Tidal Volume PEEP Peak Inspir Pressure Pressure Support Sodium 140 Potassium 3.9 Chloride 111 H Carbon Dioxide 27 Anion Gap 2 L BUN 26 H Creatinine 0.71 Estim Creat Clear Calc 75 Estimated GFR > 60 Glucose 111 H POC Capillary Glucose 113 H Lactic Acid 1.0 Calcium 7.0 L Phosphorus 1.8 L Magnesium 2.3 Total Bilirubin 0.8 AST 121 H ALT 30 Alkaline Phosphatase 93 Total Protein 4.6 L Albumin 2.6 L Chlamy pneumoniae PCR Adenovirus (PCR) B. pertussis DNA (PCR) B.parapertussis DNA PCR Coronavirus OC43 (PCR) Coronavirus HKU1 (PCR) Coronavirus 229E (PCR) Coronavirus NL63 (PCR) Human Metapneumovir PCR Influenza A (H1) PCR Influ A (H1/09) PCR Influenza A (H3) PCR Influenza Type A (PCR) Influenza Type B (PCR) M. pneumoniae (PCR) Parainfluenza 1 (PCR) Parainfluenza 2 (PCR) Parainfluenza 3 (PCR) Parainfluenza 4 (PCR) RSV (PCR) Entero/Rhino (PCR) SARS-CoV-2 (PCR) Quality VTE Prophylaxis VTE prophylaxis: mechanical ordered
[2025-09-06 12:47] LABS: Fractional Inspired Oxygen 30 %; HCO3 ABG 25.9 mEq/l (22.0-26.0); PCO2 ABG 41.0 mmHg (35.0-45.0)
[2025-09-06 13:05] LABS: PO2 ABG < 27.0 mmHg (80.0-100.0); Site Drawn RIGHT BRACHIAL
[2025-09-06 13:06] LABS: Arterial Blood Gas Pressure Support 8 cmH2O
[2025-09-06 13:20] LABS: Alveolar/Arterial O2 Gradient 122.0 mmHg; Fractional Inspired Oxygen 30 %; HCO3 ABG 24.1 mEq/l (22.0-26.0); Oxygen Content ABG 13.1 %vol (16.0-22.0); PCO2 ABG 35.9 mmHg (35.0-45.0); PO2 FiO2 Ratio Arterial Blood 1.66 %
[2025-09-06 13:40] LABS: Oxygen Saturation ABG 87.0 % (95.0-100.0); PO2 ABG 49.7 mmHg (80.0-100.0)
[2025-09-06 13:41] LABS: Arterial Blood Gas Minute Volume 0.0 LPM; Arterial Blood Gas Pressure Support 8 cmH2O; Arterial Blood Gas Tidal Volume 0 ml; Arterial Blood Gas Ventilator rate 0 /MIN; Liters per Minute 0.0 LPM; Modified Allen's Test Pass; Peak Inspiratory Pressure 0 cmH2O; Site Drawn LEFT BRACHIAL
[2025-09-06] MEDS: MICAFUNGIN SODIUM 100 MG in SODIUM CHLORIDE 0.9% IV 100 ML IVPB (13:52)
[2025-09-06] MEDS: MIDAZOLAM HCL (*CRX) 2 MG/2 ML VIAL IV PUSH (14:25)
[2025-09-06] MEDS: NOREPINEPHRINE 8 MG/D5W 250 ML 8 MG/250 ML BAG 9.38 MG IV CONT (15:25)
--- NOTE | 2025-09-06 17:43 | P.PNIM_ITS ---
Progress Note: A&P Assessment and Plan (1) Septic shock: Code(s): A41.9 - Sepsis, unspecified organism; R65.21 - Severe sepsis with septic shock Status: Acute Assessment and Plan: 09/03/2025: Patient was transferred from medical floor to ICU where he was intubated, found to be hypotensive, received albumin -and IV fluid bolus, started on Levophed -patient does have a port, will use that for the pressors -wean Levophed to maintain mean arterial MAP > 65 mmHg, SBP > 100 mmHg -patient was on azithromycin, cefepime and vancomycin per Infectious Disease -09/03: Switch cefepime to meropenem, also discussed with Infectious Disease and micafungin was added -currently on meropenem, vancomycin micafungin, (completed a course of azithromycin) -micafungin for balanitis per Infectious Disease -08/30: Blood cultures negative x2 -09/03: Blood cultures obtained and pending (2) Acute respiratory failure: Code(s): J96.00 - Acute respiratory failure, unspecified whether with hypoxia or hypercapnia Status: Acute Assessment and Plan: Patient is transferred from medical floor after being found hypoxic, hypotensive and less responsive/altered mental status -increasing O2 requirements on Airvo -09/03: Patient was intubated by ER physician in the ICU -currently on CMV mode of ventilation, peep of 5, 35% FiO2. -ABGs, chest x-ray and CT chest reviewed. -continue bronchodilator -09/03: Status post right thoracentesis this by ER physician, drained 600 mL yellow sticky fluid 09/03/2025: CT chest with contrast -IMPRESSION: 1. Significant decrease in lung volumes with prominent dependent atelectasis including partial collapse of the bilateral lower lobes. Superimposed pneumonia not excludable. 2. No significant change in small left and moderate-sized right pleural effusions. 3. Moderate amount of ascites in the upper abdomen. 4. Scattered sclerotic bone lesions consistent with known metastatic prostate cancer and with chronic pathologic fracture at T10. 09/02: IMPRESSION: Moderate loculated right pleural effusion and small left pleural effusion. Patchy infiltrates are present bilaterally. There is mediastinal lymphadenopathy. Sclerotic changes within the T9 vertebral body suggestive of metastasis. (3) Pleural effusion: Code(s): J90 - Pleural effusion, not elsewhere classified Status: Acute Assessment and Plan: 09/03: Thoracentesis perform a ER physician early hours with a removal of 600 mL in yellow sticky fluid -pleural fluid LDH, protein are pending, -fluid gram stain did not show any organism -according the hospitalist, pleural fluid looked like an exudate. Will confirm with pleural fluid studies -continue antibiotics as above (4) Pneumonia: Code(s): J18.9 - Pneumonia, unspecified organism Status: Acute Assessment and Plan: Consolidation noted on CT scan of the chest -continue antibiotics as above -appreciate pulmonology evaluation and recommendations, thoracentesis scheduled for today, 09/04 (5) Encephalopathy: Code(s): G93.40 - Encephalopathy, unspecified Status: Acute Assessment and Plan: Encephalopathy could be multifactorial, septic shock, hypotension, hypoxia -currently intubated, not on any sedation. -will maintain Euthermia, adequate blood pressures, adequate oxygenation -09/03: patient did wake up and follows simple commands IMPRESSION: CT HEAD: 1. No acute intracranial findings. CTA NECK: 1. Motion artifact along carotid bulbs. Stenosis or even dissection not excluded. Recommend carotid ultrasound. CTA HEAD: 1. No large vessel arterial occlusive disease or other acute findings. 2. No aneurysms. (6) Coagulopathy: Code(s): D68.9 - Coagulation defect, unspecified Status: Acute Assessment and Plan: PTT elevated, continue to monitor, patient not on any anticoagulation at this time (7) Anemia: Code(s): D64.9 - Anemia, unspecified Status: Acute Assessment and Plan: 09/03: Hemoglobin dropped to 6.9 this morning from 7.5. Transfused 1 unit of packed RBCs -monitor H&H (8) Protein calorie malnutrition: Code(s): E46 - Unspecified protein-calorie malnutrition Status: Acute Assessment and Plan: Protein calorie malnutrition, BMI of 23.6 -likely moderate protein calorie malnutrition -will start trickle tube feeds -phosphorus was repleted (9) Metastatic malignant neoplasm to prostate: Code(s): C79.82 - Secondary malignant neoplasm of genital organs Status: Acute Assessment and Plan: Patient has metastatic prostate cancer, being treated by Dr. Walsh with palliative chemotherapy (10) Candidal balano-posthitis: Code(s): B37.49 - Other urogenital candidiasis Status: Acute Assessment and Plan: Continue micafungin (11) COPD (chronic obstructive pulmonary disease): Code(s): J44.9 - Chronic obstructive pulmonary disease, unspecified Status: Acute Assessment and Plan: Continue DuoNebs, on mechanical ventilation Plan patient with metastatic prostate cancer presented with weakness and fever, with neutropenia 2/2 chemotherapy, initially patient was admitted on medical floor, his symptoms worsen patient was transferred to ICU and currently intubated, patient is found to have pneumonia, patient is being treated meropenem, and vancomycin, patient is also has candidal balano-posthitis and being treated with fluconazole, patient neutropenia has resolved, patient is by shopping centre manager, 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 Subjective Date/time seen: 09/06/25 17:43 Interval history: presented to the with Gen weakness and fever H&P-Narrative: 75yo M with Prostate ca on Chemo presented to [facility] Er with generalized weakness. patinet noted his appetite has been very poor the last week mostly due to oral pain. Otherwise noted he was recently diagnosed of yeast balanitis by his PCP and was placed on medication however no respite from the symtptoms . Otherwise denies any chest pain, SOB, abd pain, diarrhea or focal symptoms. Fever noted at home ER evaluation notable for possible 2, temperature 98.6?, blood pressure 130/46, saturating 94% on room air. Labs notable for WBC 0.7, hemoglobin 7.9, platelets 112, sodium 129, MRSA negative. Chest x-ray showed a possible pneumonia. patient with metastatic prostate cancer presented with weakness and fever, with neutropenia 2/2 chemotherapy, initially patient was admitted on medical floor, his symptoms worsen patient was transferred to ICU and currently intubated, patient is found to have pneumonia, patient is being treated meropenem, and vancomycin, patient is also has candidal balano-posthitis and being treated with fluconazole, patient neutropenia has resolved, patient is by shopping centre manager, 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 Review of Systems Review of Systems: ROS unobtainable: Yes unobtainable due to endotracheal tube Exam Narrative: Patient is comfortable, NAD HEENT: ET tube in place LUNGS:CTA HEART: RR S1S2 ABD: BS+, Soft and nontender Lower extremities: no edema SKIN: nonjaundiced Neuro: On vent and sedated Objective Data Vital Signs Vital Signs: Vital Signs - 24 hr 09/05/25 18:00 09/05/25 18:00 09/05/25 18:00 Temperature 36.9 C Pulse Rate 99 99 99 Respiratory Rate 18 18 Blood Pressure 94/55 L Pulse Oximetry 100 Oxygen Delivery Fraction of Inspired Oxygen 09/05/25 19:00 09/05/25 20:00 09/05/25 20:00 Temperature 36.9 C Pulse Rate 115 H Respiratory Rate 18 Blood Pressure 129/76 Pulse Oximetry 97 97 Oxygen Delivery Mechanical Ventilation Fraction of Inspired Oxygen 30 30 09/05/25 20:00 09/05/25 20:00 09/05/25 20:00 Temperature 36.8 C Pulse Rate 95 95 95 Respiratory Rate 18 18 Blood Pressure 111/63 Pulse Oximetry 99 Oxygen Delivery Fraction of Inspired Oxygen 09/05/25 20:30 09/05/25 20:49 09/05/25 20:57 Temperature Pulse Rate 121 H 118 H 112 H Respiratory Rate 19 18 Blood Pressure Pulse Oximetry 98 Oxygen Delivery Mechanical Ventilation Fraction of Inspired Oxygen 30 09/05/25 21:00 09/05/25 22:00 09/05/25 22:00 Temperature 36.7 C Pulse Rate 100 108 H 108 H Respiratory Rate 18 18 Blood Pressure 88/50 L 101/60 Pulse Oximetry 97 96 Oxygen Delivery Fraction of Inspired Oxygen 09/05/25 22:00 09/05/25 23:00 09/05/25 23:03 Temperature Pulse Rate 84 83 98 Respiratory Rate 18 18 Blood Pressure 96/55 L Pulse Oximetry 99 99 Oxygen Delivery Mechanical Ventilation Fraction of Inspired Oxygen 30 09/06/25 00:00 09/06/25 00:00 09/06/25 00:00 Temperature 36.9 C Pulse Rate 84 Respiratory Rate 18 Blood Pressure 96/53 L Pulse Oximetry 99 99 Oxygen Delivery Mechanical Ventilation Fraction of Inspired Oxygen 30 30 09/06/25 00:00 09/06/25 00:00 09/06/25 01:00 Temperature Pulse Rate 84 84 81 Respiratory Rate 18 18 Blood Pressure 89/50 L Pulse Oximetry 99 Oxygen Delivery Fraction of Inspired Oxygen 09/06/25 02:00 09/06/25 02:00 09/06/25 02:12 Temperature 36.9 C Pulse Rate 79 81 79 Respiratory Rate 18 18 18 Blood Pressure 93/53 L Pulse Oximetry 100 Oxygen Delivery Fraction of Inspired Oxygen 09/06/25 02:13 09/06/25 02:28 09/06/25 03:00 Temperature Pulse Rate 89 91 81 Respiratory Rate 18 18 Blood Pressure 93/53 L Pulse Oximetry 99 100 Oxygen Delivery Mechanical Ventilation Fraction of Inspired Oxygen 30 09/06/25 03:26 09/06/25 03:26 09/06/25 04:00 Temperature Pulse Rate 81 81 78 Respiratory Rate 18 18 18 Blood Pressure Pulse Oximetry Oxygen Delivery Fraction of Inspired Oxygen 09/06/25 04:00 09/06/25 04:00 09/06/25 04:00 Temperature Pulse Rate 79 Respiratory Rate Blood Pressure Pulse Oximetry 99 Oxygen Delivery Mechanical Ventilation Fraction of Inspired Oxygen 30 30 09/06/25 04:00 09/06/25 05:00 09/06/25 05:05 Temperature 36.9 C Pulse Rate 79 112 H 99 Respiratory Rate 18 18 Blood Pressure 99/58 L 115/61 Pulse Oximetry 100 98 100 Oxygen Delivery Mechanical Ventilation Fraction of Inspired Oxygen 30 09/06/25 06:00 09/06/25 06:00 09/06/25 06:00 Temperature 36.6 C Pulse Rate 78 111 H 111 H Respiratory Rate 21 H 21 H Blood Pressure 104/64 Pulse Oximetry 100 Oxygen Delivery Fraction of Inspired Oxygen 09/06/25 07:00 09/06/25 08:00 09/06/25 08:00 Temperature 36.7 C Pulse Rate 92 77 77 Respiratory Rate 18 18 18 Blood Pressure 87/50 L 84/50 L Pulse Oximetry 100 100 Oxygen Delivery Fraction of Inspired Oxygen 09/06/25 08:00 09/06/25 08:00 09/06/25 08:00 Temperature Pulse Rate 81 Respiratory Rate Blood Pressure Pulse Oximetry 100 Oxygen Delivery Mechanical Ventilation Fraction of Inspired Oxygen 30 30 09/06/25 08:07 09/06/25 08:08 09/06/25 08:22 Temperature Pulse Rate 88 84 100 Respiratory Rate 16 18 Blood Pressure Pulse Oximetry 100 100 Oxygen Delivery Mechanical Ventilation Fraction of Inspired Oxygen 30 09/06/25 08:45 09/06/25 09:05 09/06/25 10:00 Temperature 36.9 C 36.9 C Pulse Rate 97 105 H 91 Respiratory Rate 17 13 13 Blood Pressure 106/64 93/57 L Pulse Oximetry 100 100 Oxygen Delivery Fraction of Inspired Oxygen 09/06/25 10:00 09/06/25 10:00 09/06/25 10:14 Temperature Pulse Rate 91 91 90 Respiratory Rate 13 Blood Pressure Pulse Oximetry 100 Oxygen Delivery Mechanical Ventilation Fraction of Inspired Oxygen 30 09/06/25 11:00 09/06/25 12:00 09/06/25 12:00 Temperature 37.2 C Pulse Rate 117 H 111 H 121 H Respiratory Rate 14 13 13 Blood Pressure 136/81 96/56 L Pulse Oximetry 100 100 Oxygen Delivery Fraction of Inspired Oxygen 09/06/25 12:00 09/06/25 12:00 09/06/25 12:00 Temperature Pulse Rate 102 H Respiratory Rate Blood Pressure Pulse Oximetry 100 Oxygen Delivery Mechanical Ventilation Fraction of Inspired Oxygen 30 30 09/06/25 12:25 09/06/25 13:00 09/06/25 13:30 Temperature Pulse Rate 119 H 112 H 116 H Respiratory Rate 12 13 Blood Pressure 113/64 Pulse Oximetry 100 100 Oxygen Delivery Mechanical Ventilation Fraction of Inspired Oxygen 30 09/06/25 14:00 09/06/25 14:00 09/06/25 14:00 Temperature Pulse Rate 150 H 123 H 123 H Respiratory Rate 18 17 Blood Pressure 120/73 Pulse Oximetry 100 Oxygen Delivery Fraction of Inspired Oxygen 09/06/25 14:06 09/06/25 14:30 09/06/25 15:00 Temperature 37.2 C Pulse Rate 122 H 118 H 110 H Respiratory Rate 16 20 17 Blood Pressure 81/51 L Pulse Oximetry 100 Oxygen Delivery Fraction of Inspired Oxygen 09/06/25 15:25 09/06/25 15:28 09/06/25 15:32 Temperature Pulse Rate 112 H 106 H 103 H Respiratory Rate Blood Pressure 64/44 L 89/53 L 73/48 L Pulse Oximetry Oxygen Delivery Fraction of Inspired Oxygen 09/06/25 15:35 09/06/25 16:00 09/06/25 16:00 Temperature Pulse Rate 93 Respiratory Rate Blood Pressure 114/65 Pulse Oximetry 100 Oxygen Delivery Mechanical Ventilation Fraction of Inspired Oxygen 30 30 09/06/25 16:00 09/06/25 16:00 09/06/25 16:00 Temperature 37.0 C Pulse Rate 100 100 100 Respiratory Rate 18 18 Blood Pressure 124/66 124/66 Pulse Oximetry 100 Oxygen Delivery Fraction of Inspired Oxygen 09/06/25 16:00 09/06/25 16:40 09/06/25 17:00 Temperature 37.0 C Pulse Rate 94 106 H 105 H Respiratory Rate 18 Blood Pressure 125/61 Pulse Oximetry 100 100 Oxygen Delivery Mechanical Ventilation Fraction of Inspired Oxygen 30 Intake/Output Intake/Output: Intake & Output 09/03/25 09/04/25 09/05/25 09/06/25 23:59 23:59 23:59 23:59 Intake Total 2523.0 824.3 1981.1333 984.5 Output Total 800 860 804 5051 Balance 1723.0 374.3 1456.1333 -215.5 Meds/Results Medications: Active Medications Generic Name Dose Route Start Last Admin Trade Name Freq PRN Reason Stop Dose Admin Acetaminophen 650 mg 08/30/25 10:58 Acetaminophen 325 Mg Tablet PO Q4H PRN Mild Pain (1-3) or Fever Albuterol/Ipratropium 3 ml 09/01/25 08:55 09/06/25 14:06 Ipratropium 0.5 Mg/Albuterol Sulfate 2.5 Mg (Base) Ampul.Neb 3 Ml INHALATION 3 ml Q6HRT DARIEN Administration Lidocaine HCl 30 ml/ Al Hydrox 0 ml 08/30/25 17:00 09/03/25 07:00 /Mg Hydrox/Simethicone 30 ml/ PO Not Given Diphenhydramine HCl 75 mg Q4HWA DARIEN On Hold: 09/03/25 07:00 Dextrose 12.5 gm 09/03/25 10:06 Dextrose 50% 25 Gm/50 Ml Syringe IV PUSH PRN PRN Hypoglycemia Protocol Fenofibrate 145 mg 09/01/25 09:00 09/06/25 08:06 Fenofibrate 145 Mg Tablet PO 145 mg QAM DARIEN Administration Glucagon 1 mg 09/03/25 10:06 Glucagon For Inj 1 Mg Vial IM PRN PRN Hypoglycemia Protocol Glucose 15 gm 09/03/25 10:06 Glucose Oral Gel 15 Gm Of Glucse In 37.5 Gm Tube PO PRN PRN Hypoglycemia Protocol Heparin Sodium (Beef Lung) 50 units 09/03/25 09:00 09/06/25 08:07 Heparin Flush 50 Units/5 Ml Syringe IV PUSH Not Given QAM DARIEN Heparin Sodium (Beef Lung) 50 units 09/03/25 07:03 Heparin Flush 50 Units/5 Ml Syringe IV PUSH PRN PRN after intermittent infusion Heparin Sodium (Beef Lung) 50 units 09/03/25 07:03 Heparin Flush 50 Units/5 Ml Syringe IV PUSH PRN PRN after blood draws Heparin Sodium (Porcine) 500 units 09/03/25 07:03 Heparin Sodium Lock Flush 500 Units/5 Ml Syringe IV PUSH PRN PRN see comments below Dextrose 1,000 mls @ 100 mls/hr 09/03/25 10:06 Dextrose 5% 1,000 Ml IVPB PRN PRN Hypoglycemia Protocol Meropenem 1 gm/ Sodium 100 mls @ 200 mls/hr 09/03/25 11:00 09/06/25 10:33 Chloride IVPB 200 mls/hr Q8H DARIEN Administration Micafungin Sodium 100 mg/ 100 mls @ 100 mls/hr 09/03/25 14:00 09/06/25 13:52 Sodium Chloride IVPB 100 mls/hr Q24H DARIEN Administration Vancomycin HCl 1,500 mg in 500 mls @ 250 mls/hr 09/05/25 06:00 09/06/25 03:24 Vancomycin 1,500 Mg/Ns 500 Ml IVPB Infused Q18H DARIEN Infusion Dexmedetomidine HCl 400 mcg in 100 mls @ 8.01 mls/hr 09/05/25 13:40 09/06/25 16:00 Precedex 400 Mcg/100 Ml IV CONT 0.4 mcg/kg/hr .[id number] DARIEN 8.01 mls/hr Protocol Titration 0.4 MCG/KG/HR Norepinephrine Bitartrate 8 mg in 250 mls @ 9.375 mls/hr 09/06/25 15:20 09/06/25 16:00 Levophed 8 Mg/D5w 250 Ml IV CONT 10 mcg/min .Q24H DARIEN 18.75 mls/hr Protocol Titration 5 MCG/MIN Insulin Aspart 2 - 5 units 09/03/25 10:10 09/06/25 17:11 Insulin Aspart (*Bkc) 100 Units/Ml SUB-Q Not Given Q4HR [facility] Protocol Lidocaine HCl 1 applic 08/30/25 20:34 08/31/25 09:34 Lidocaine 4% Soln 50 Ml Btl TOPICAL 1 applic PRN PRN Administration Pain Loratadine 10 mg 08/31/25 21:00 09/06/25 08:06 Loratadine 10 Mg Tablet PO 10 mg QAM DARIEN Administration Metoprolol Succinate 25 mg 08/31/25 13:45 09/02/25 11:31 Metoprolol Succinate Ext Rel 25 Mg Tabcr PO Not Given On Hold: 09/03/25 03:09 QAM [facility] Multi-Ingred Cream/Lotion/Oil/Oint 1 applic 09/03/25 09:00 09/06/25 08:06 Mineral Oil/White Petrolatum Ointment EACH EYE 1 applic Q12HR DARIEN Administration Pantoprazole Sodium 40 mg 09/03/25 21:00 09/06/25 08:06 Pantoprazole Sodium Iv 40 Mg Vial IV PUSH 40 mg Q12HR DARIEN Administration Sodium Chloride 10 ml 09/03/25 14:00 09/06/25 13:52 Central Line Flush IV PUSH 10 ml Q8HR DARIEN Administration Tamsulosin HCl 0.4 mg 09/01/25 09:00 09/06/25 08:06 Tamsulosin Hcl 0.4 Mg Capsule PO 0.4 mg DAILY DARIEN Administration Vitamin D 125 mcg 09/01/25 09:00 09/06/25 08:06 Cholecalciferol (Vitamin D3) 125 Mcg (5,000 Units) Tablet PO 125 mcg DAILY DARIEN Administration Radiology Results: ITS Impressions Head CT 09/03/25 06:23 IMPRESSION: 1. No acute intracranial findings. Head/Neck CTA 09/03/25 06:30 IMPRESSION: CT HEAD: 1. No acute intracranial findings. CTA NECK: 1. Motion artifact along carotid bulbs. Stenosis or even dissection not excluded. Recommend carotid ultrasound. CTA HEAD: 1. No large vessel arterial occlusive disease or other acute findings. 2. No aneurysms. Chest CT 09/03/25 07:26 IMPRESSION: 1. Significant decrease in lung volumes with prominent dependent atelectasis including partial collapse of the bilateral lower lobes. Superimposed pneumonia not excludable. 2. No significant change in small left and moderate-sized right pleural effusions. 3. Moderate amount of ascites in the upper abdomen. 4. Scattered sclerotic bone lesions consistent with known metastatic prostate cancer and with chronic pathologic fracture at T10. Carotid Doppler Study 09/03/25 17:25 IMPRESSION: 1. >=70% (but less than near occlusion) stenosis in the right internal carotid artery. 2. >=70% (but less than near occlusion) stenosis in the left internal carotid artery. 3. The degree of stenosis indicated by the increased velocities is greater than would be expected given the amount of calcified atherosclerotic plaque evident on the prior CT angiogram. This suggests that the lower density linear filling defects at the bilateral carotid bulbs seen on the prior CT angiogram are not artifactual and likely to represent small dissection flaps. Abdomen X-Ray 09/04/25 07:07 IMPRESSION: 1: NG tube tip in the stomach. 2: Bibasilar airspace disease may represent edema or pneumonia. Chest X-Ray 09/06/25 11:36 IMPRESSION: 1. Worsening interstitial pulmonary edema and/or pneumonitis. 2. Persistent pleural effusions with bibasilar atelectasis and/or airspace. Labs Labs: Laboratory Results - last 24 hr 09/05/25 09/05/25 09/06/25 20:52 23:57 05:04 WBC RBC Hgb Hct MCV MCH MCHC RDW Plt Count MPV Immature Gran % (Auto) Neut % (Auto) Lymph % (Auto) [place] % (Auto) Eos % (Auto) Baso % (Auto) Lymph # (Auto) [place] # (Auto) Eos # (Auto) Baso # (Auto) Abs Immat Gran (auto) Absolute Neuts (auto) Absolute Nucleated RBC Band Neutrophils % Nucleated RBC % Platelet Estimate Hypochromasia Schistocytes PT INR APTT Puncture Site Right brachial ABG pH 7.465 H ABG pCO2 33.1 L ABG pO2 89.0 ABG PO2/FiO2 Ratio 2.97 ABG HCO3 23.3 ABG O2 Saturation 97.3 ABG O2 Content 13.6 L ABG Base Excess -0.1 A-a Gradient 86.0 Oxyhemoglobin 96.0 Carboxyhemoglobin 0.5 Methemoglobin 0.3 Reduced Hemoglobin 3.2 Total Hemoglobin 10.0 L O2 Delivery Device Ventilator O2 Liters/Min Not Reportable Minute Volume Not Reportable Vent Rate 18 Vent Mode Cmv FiO2 30 Tidal Volume 400 PEEP 5 Peak Inspir Pressure Not Reportable Pressure Support Not Reportable Sodium Potassium Chloride Carbon Dioxide Anion Gap BUN Creatinine Estim Creat Clear Calc Estimated GFR Glucose POC Capillary Glucose 113 H 90 Lactic Acid Calcium Phosphorus Magnesium Total Bilirubin AST ALT Alkaline Phosphatase Total Protein Albumin 09/06/25 09/06/25 09/06/25 05:49 07:11 12:08 WBC 16.8 H RBC 2.96 L Hgb 9.2 L Hct 28.6 L MCV 96.6 MCH 31.1 MCHC 32.2 RDW 20.6 H Plt Count 155 MPV 10.5 H Immature Gran % (Auto) 9.1 H Neut % (Auto) 72.7 Lymph % (Auto) 5.9 L [place] % (Auto) 11.5 H Eos % (Auto) 0.0 Baso % (Auto) 0.8 Lymph # (Auto) 0.99 [place] # (Auto) 1.9 H Eos # (Auto) 0.0 Baso # (Auto) 0.1 Abs Immat Gran (auto) 1.53 H Absolute Neuts (auto) 12.2 H Absolute Nucleated RBC 0.120 H Band Neutrophils % Not Reportable Nucleated RBC % 0.7 H Platelet Estimate Adequate Hypochromasia 1+ Schistocytes None seen PT 18.3 H INR 1.5 APTT 43.3 H Puncture Site ABG pH ABG pCO2 ABG pO2 ABG PO2/FiO2 Ratio ABG HCO3 ABG O2 Saturation ABG O2 Content ABG Base Excess A-a Gradient Oxyhemoglobin Carboxyhemoglobin Methemoglobin Reduced Hemoglobin Total Hemoglobin O2 Delivery Device O2 Liters/Min Minute Volume Vent Rate Vent Mode FiO2 Tidal Volume PEEP Peak Inspir Pressure Pressure Support Sodium 140 Potassium 3.9 Chloride 111 H Carbon Dioxide 27 Anion Gap 2 L BUN 26 H Creatinine 0.71 Estim Creat Clear Calc 75 Estimated GFR > 60 Glucose 111 H POC Capillary Glucose 113 H 102 Lactic Acid 1.0 Calcium 7.0 L Phosphorus 1.8 L Magnesium 2.3 Total Bilirubin 0.8 AST 121 H ALT 30 Alkaline Phosphatase 93 Total Protein 4.6 L Albumin 2.6 L 09/06/25 09/06/25 09/06/25 12:45 13:15 15:11 WBC RBC Hgb Hct MCV MCH MCHC RDW Plt Count MPV Immature Gran % (Auto) Neut % (Auto) Lymph % (Auto) [place] % (Auto) Eos % (Auto) Baso % (Auto) Lymph # (Auto) [place] # (Auto) Eos # (Auto) Baso # (Auto) Abs Immat Gran (auto) Absolute Neuts (auto) Absolute Nucleated RBC Band Neutrophils % Nucleated RBC % Platelet Estimate Hypochromasia Schistocytes PT INR APTT Puncture Site Right brachial Left brachial ABG pH 7.419 7.445 ABG pCO2 41.0 35.9 ABG pO2 < 27.0 L* 49.7 L* ABG PO2/FiO2 Ratio 1.66 ABG HCO3 25.9 24.1 ABG O2 Saturation 87.0 L* ABG O2 Content 13.1 L ABG Base Excess 1.3 0.3 A-a Gradient 122.0 Oxyhemoglobin 86.1 L* Carboxyhemoglobin Methemoglobin Reduced Hemoglobin Total Hemoglobin 10.8 L O2 Delivery Device Ventilator Ventilator O2 Liters/Min 0.0 0.0 Minute Volume 0.0 0.0 Vent Rate 0 0 Vent Mode Pressure support Pressure support FiO2 30 30 Tidal Volume 0 0 PEEP 5 5 Peak Inspir Pressure 0 0 Pressure Support 8 8 Sodium Potassium Chloride Carbon Dioxide Anion Gap BUN Creatinine Estim Creat Clear Calc Estimated GFR Glucose POC Capillary Glucose 92 Lactic Acid Calcium Phosphorus Magnesium Total Bilirubin AST ALT Alkaline Phosphatase Total Protein Albumin 09/06/25 17:11 WBC RBC Hgb Hct MCV MCH MCHC RDW Plt Count MPV Immature Gran % (Auto) Neut % (Auto) Lymph % (Auto) [place] % (Auto) Eos % (Auto) Baso % (Auto) Lymph # (Auto) [place] # (Auto) Eos # (Auto) Baso # (Auto) Abs Immat Gran (auto) Absolute Neuts (auto) Absolute Nucleated RBC Band Neutrophils % Nucleated RBC % Platelet Estimate Hypochromasia Schistocytes PT INR APTT Puncture Site ABG pH ABG pCO2 ABG pO2 ABG PO2/FiO2 Ratio ABG HCO3 ABG O2 Saturation ABG O2 Content ABG Base Excess A-a Gradient Oxyhemoglobin Carboxyhemoglobin Methemoglobin Reduced Hemoglobin Total Hemoglobin O2 Delivery Device O2 Liters/Min Minute Volume Vent Rate Vent Mode FiO2 Tidal Volume PEEP Peak Inspir Pressure Pressure Support Sodium Potassium Chloride Carbon Dioxide Anion Gap BUN Creatinine Estim Creat Clear Calc Estimated GFR Glucose POC Capillary Glucose 113 H Lactic Acid Calcium Phosphorus Magnesium Total Bilirubin AST ALT Alkaline Phosphatase Total Protein Albumin Quality VTE Prophylaxis VTE prophylaxis: mechanical ordered
[2025-09-06] MEDS: VANCOMYCIN 1,250 MG/NS 250 ML 1,250 MG/250 ML BAG 166.67 MG IVPB (18:45)
[2025-09-07] VITALS (51 sets, daily range): BP systolic 82–136; BP diastolic 49–100; PULSE 80–154; RESP 13–20; TEMP 36.4–37.6; O2SAT 20–100
[2025-09-07] MEDS: IPRATROPIUM 0.5 MG/ALBUTEROL SULFATE 2.5 MG (BASE) AMPUL.NEB 3 ML INHALATION ×4 (02:34→19:36)
[2025-09-07] MEDS: MEROPENEM 1 GM in SODIUM CHLORIDE 0.9% IV 100 ML 200 ML IVPB ×3 (03:10→19:53)
[2025-09-07] MEDS: dexmedeTOMIDine 400 MCG/100 ML 400 MCG/100 ML BAG 14.02 MCG IV CONT (03:39)
[2025-09-07 04:20] LABS: Hematocrit 30.2 % (42.0-52.0); Hemoglobin 9.6 g/dL (14.0-18.0); Immature Granulocyte Percent A 6.4 % (0-0.5); Lymphocytes Absolute Auto 0.90 K/mm3 (0.9-3.2); Mean Corpuscular HGB Conc 31.8 g/dl (32-36); Mean Corpuscular Hemoglobin 30.7 pg (26-34); Mean Corpuscular Volume 96.5 fl (80-100); Nucleated Red Blood Cells Absolute Auto 0.050 K/mm3 (0.0-0.012); Nucleated Red Blood Cells Perc 0.3 % (0.0-0.2); Platelet Count Result 147 k/mm3 (150-375); Red Blood Count 3.13 M/mm3 (4.6-6.20); White Blood Count 18.1 K/mm3 (4.5-10.0)
[2025-09-07 04:35] LABS: INR 1.4; Prothrombin Time 17.4 Seconds (11.1-14.7)
[2025-09-07 04:37] LABS: Partial Thromboplastin Time 52.8 Seconds (22.3-36.8)
[2025-09-07 04:45] LABS: Anisocytosis 1+
[2025-09-07 04:46] LABS: Poikilocytosis 1+; Schistocytes None Seen
[2025-09-07 04:51] LABS: Alanine Aminotransferase 28 U/L (6-50); Albumin Level 2.4 g/dL (3.5-5.1); Alkaline Phosphatase 111 U/L (38-126); Anion Gap 3 mmol/L (4-12); Aspartate Amino Transferase 103 U/L (17-59); Bilirubin,Total 0.9 mg/dL (0.2-1.3); Blood Urea Nitrogen 24 mg/dL (9-20); Calcium 7.1 mg/dL (8.4-10.2); Carbon Dioxide 26 mmol/L (22-30); Chloride 110 mmol/L (98-107); Estimated CRCL calculation 86 ml/min; Estimated Glomerular Filt Rate > 60; Glucose 144 mg/dL (65-110); Magnesium 2.3 mg/dL (1.6-2.3); Potassium 3.6 mmol/L (3.4-5.0); Sodium 139 mmol/L (137-145); Total Protein 4.4 g/dL (6.3-8.2)
[2025-09-07 05:43] LABS: Alveolar/Arterial O2 Gradient 60.3 mmHg; Carboxyhemoglobin 0.6 % THb (0-2.0); Fractional Inspired Oxygen 25 %; HCO3 ABG 24.4 mEq/l (22.0-26.0); Methemoglobin ABG 0.1 %THb (0-1.5); Oxygen Content ABG 14.0 %vol (16.0-22.0); Oxygen Saturation ABG 96.1 % (95.0-100.0); PCO2 ABG 34.6 mmHg (35.0-45.0); PO2 ABG 76.9 mmHg (80.0-100.0); PO2 FiO2 Ratio Arterial Blood 3.08 %; Reduced Hemoglobin 4.4 %THb (0-5.0)
[2025-09-07 05:44] LABS: Arterial Blood Gas Tidal Volume 400 ml; Arterial Blood Gas Ventilator rate 16 /MIN; Site Drawn RIGHT BRACHIAL
[2025-09-07] MEDS: CENTRAL LINE FLUSH 10 ML IV PUSH ×3 (06:11→20:06)
[2025-09-07] MEDS: FUROSEMIDE INJ 100 MG/10 ML VIAL 80 MG IV PUSH ×2 (09:26→19:53)
[2025-09-07] MEDS: PANTOPRAZOLE SODIUM IV 40 MG VIAL IV PUSH ×2 (09:27→20:06)
[2025-09-07] MEDS: CALCIUM GLUC 2,000 MG/NS 100ML 2,000 MG/100 ML BAG 100 MG IVPB (09:27)
[2025-09-07] MEDS: MINERAL OIL/WHITE PETROLATUM OINTMENT 1 APPLIC EACH EYE ×2 (09:28→20:06)
[2025-09-07] MEDS: POTASSIUM BICARBONATE 25 MEQ TABEF 50 MEQ FEED TUBE (09:29)
[2025-09-07] MEDS: FENOFIBRATE 145 MG TABLET PO (09:30)
[2025-09-07] MEDS: TAMSULOSIN HCL 0.4 MG CAPSULE PO (09:30)
[2025-09-07] MEDS: CHOLECALCIFEROL (VITAMIN D3) 125 MCG (5,000 UNITS) TABLET PO (09:30)
[2025-09-07] MEDS: LORATADINE 10 MG TABLET PO (09:30)
--- NOTE | 2025-09-07 09:48 | WPDINTPN ---
Progress Note: A&P Assessment and Plan (1) Septic shock: Code(s): A41.9 - Sepsis, unspecified organism; R65.21 - Severe sepsis with septic shock Status: Acute Assessment and Plan: 09/03/2025: Patient was transferred from medical floor to ICU where he was intubated, found to be hypotensive, received albumin -and IV fluid bolus, started on Levophed -patient does have a port, will use that for the pressors -off Levophed -patient was on azithromycin, cefepime and vancomycin per Infectious Disease -09/03: Switched antibiotics to meropenem, vancomycin and micafungin -(completed a course of azithromycin) -appreciate ID following the patient along with the recommendations -micafungin for balanitis per Infectious Disease -08/30: Blood cultures negative x2 -09/03: Blood cultures obtained and pending 09/04: Respiratory cultures from BAL pending (2) Acute respiratory failure: Code(s): J96.00 - Acute respiratory failure, unspecified whether with hypoxia or hypercapnia Status: Acute Assessment and Plan: Respiratory failure likely multifactorial secondary to pneumonia and pulmonary edema with underlying lung disease and lobectomy Patient is transferred from medical floor after being found hypoxic, hypotensive and less responsive/altered mental status -increasing O2 requirements on Airvo -09/03: Patient was intubated by ER physician in the ICU -currently on CMV mode of ventilation, peep of 5, 25% FiO2. -ABGs, chest x-ray and CT chest reviewed. -continue bronchodilator -09/03: Status post right thoracentesis this by ER physician, drained 600 mL yellow sticky fluid -09/04: Bronchoscopy performed by pulmonology, BAL cultures have been obtained and pending -appreciate pulmonology evaluation and recommendation 09/06: Place patient on SBT, tolerating well, will evaluate for extubation, on low-dose Precedex at this time 09/07 will give Lasix IV today and attempted weaning trial. 09/03/2025: CT chest with contrast -IMPRESSION: 1. Significant decrease in lung volumes with prominent dependent atelectasis including partial collapse of the bilateral lower lobes. Superimposed pneumonia not excludable. 2. No significant change in small left and moderate-sized right pleural effusions. 3. Moderate amount of ascites in the upper abdomen. 4. Scattered sclerotic bone lesions consistent with known metastatic prostate cancer and with chronic pathologic fracture at T10. 09/02: IMPRESSION: Moderate loculated right pleural effusion and small left pleural effusion. Patchy infiltrates are present bilaterally. There is mediastinal lymphadenopathy. Sclerotic changes within the T9 vertebral body suggestive of metastasis. (3) Pleural effusion: Code(s): J90 - Pleural effusion, not elsewhere classified Status: Acute Assessment and Plan: 09/03: Thoracentesis perform a ER physician early hours with a removal of 600 mL in yellow sticky fluid -according to Light's criteria pleural protein/serum protein ratio<0.5, pleural LDH/serum LDH < 0.6. The effusion is likely a transudate -fluid gram stain did not show any organism, cultures are still pending -continue antibiotics as above (4) Pneumonia: Code(s): J18.9 - Pneumonia, unspecified organism Status: Acute Assessment and Plan: Consolidation noted on CT scan of the chest -continue antibiotics as above -appreciate pulmonology evaluation and recommendations, -bronchoscopy done on 09/04 since patient is immunocompromised due to chemotherapy (5) Encephalopathy: Code(s): G93.40 - Encephalopathy, unspecified Status: Acute Assessment and Plan: Encephalopathy could be multifactorial, septic shock, hypotension, hypoxia -currently intubated and on Precedex -will maintain Euthermia, adequate blood pressures, adequate oxygenation -upon sedation vacation, patient does open his eyes and follows simple commands IMPRESSION: CT HEAD: 1. No acute intracranial findings. CTA NECK: 1. Motion artifact along carotid bulbs. Stenosis or even dissection not excluded. Recommend carotid ultrasound. CTA HEAD: 1. No large vessel arterial occlusive disease or other acute findings. 2. No aneurysms. (6) Coagulopathy: Code(s): D68.9 - Coagulation defect, unspecified Status: Acute Assessment and Plan: PTT elevated, continue to monitor, patient not on any anticoagulation at this time -improving (7) Anemia: Code(s): D64.9 - Anemia, unspecified Status: Acute Assessment and Plan: 09/03: Hemoglobin dropped to 6.9 this morning from 7.5. Transfused 1 unit of packed RBCs -hemoglobin has been stable and gradually improving -continue to monitor (8) Protein calorie malnutrition: Code(s): E46 - Unspecified protein-calorie malnutrition Status: Acute Assessment and Plan: Protein calorie malnutrition, BMI of 23.6 -likely moderate protein calorie malnutrition -09/04: Tolerating tube feeds -will replace phosphorous and potassium today (9) Metastatic malignant neoplasm to prostate: Code(s): C79.82 - Secondary malignant neoplasm of genital organs Status: Acute Assessment and Plan: Patient has metastatic prostate cancer, being treated by Dr. Walsh with palliative chemotherapy (10) Candidal balano-posthitis: Code(s): B37.49 - Other urogenital candidiasis Status: Acute Assessment and Plan: Continue micafungin per Infectious Disease (11) COPD (chronic obstructive pulmonary disease): Code(s): J44.9 - Chronic obstructive pulmonary disease, unspecified Status: Acute Assessment and Plan: Continue DuoNebs, on mechanical ventilation Plan DVT prophylaxis: SCDs, start Lovenox Stress ulcer prophylaxis: Protonix IV q.12 hours Nutrition: Currently tolerating tube feed Code Status: DNR Spoke to and updated patient's son at bedside answered all his questions. Critical Care Time Spent: 32 minutes Due to a high probability of clinically significant, life threatening deterioration, the patient required my highest level of preparedness to intervene emergently and I personally spent this critical care time directly and personally managing the patient. This critical care time included obtaining a history; examining the patient; pulse oximetry; ordering and review of studies; arranging urgent treatment with development of a management plan; evaluation of patient's response to treatment; frequent reassessment; and discussions with other providers. It was exclusive of separately billable procedures and treating other patients and teaching time. Please see Assessment and Plan section and the rest of the note for further information on patient assessment and treatment This dictation may have been done utilizing a voice recognition system. Attempts have been made to correct errors. However, there may be uncorrected grammatical, spelling, and recognitions errors present. Subjective Date/time seen: 09/07/25 Overnight events reviewed. Afebrile Continues to be on mechanical ventilation 25% FiO2 Continues to be sedated with Precedex Acceptable urine output Sinus tachycardia Interval history: Reason for consult: Acute respiratory failure, septic shock, encephalopathy, recent chemotherapy, neutropenia, fungal balanitis Review of Systems Review of Systems: ROS unobtainable: Yes unobtainable due to endotracheal tube, unobtainable due to medical condition and unobtainable due to mental status Exam Narrative: General: Ill-appearing elderly patient, intubated HEENT:? Pupils equal and reactive bilaterally. Sclera is clear, eyes are sunken, ETT in place Neck:? Supple Respiratory:? Coarse breath sounds bilaterally, rales auscultated bilaterally, no wheezing, adequate air entry otherwise Cardiac:? S1-S2 is normal, regular rate and rhythm Abdomen: Soft, nontender, non distended, hypoactive bowel sounds Extremities:? Bilateral pitting edema present Neuro:? Intubated, on Precedex infusion, opens his eyes and follows simple commands Skin:? Skin tears noted on the feet bilaterally, Psych:? Unable to assess at this time Objective Data Vital Signs Vital Signs: Vital Signs - 24 hr 09/06/25 10:00 09/06/25 10:00 09/06/25 10:00 Temperature 36.9 C Pulse Rate 91 91 91 Respiratory Rate 13 13 Blood Pressure 93/57 L Pulse Oximetry 100 Oxygen Delivery Fraction of Inspired Oxygen 09/06/25 10:14 09/06/25 11:00 09/06/25 12:00 Temperature 37.2 C Pulse Rate 90 117 H 111 H Respiratory Rate 14 13 Blood Pressure 136/81 96/56 L Pulse Oximetry 100 100 100 Oxygen Delivery Mechanical Ventilation Fraction of Inspired Oxygen 30 09/06/25 12:00 09/06/25 12:00 09/06/25 12:00 Temperature Pulse Rate 121 H Respiratory Rate 13 Blood Pressure Pulse Oximetry 100 Oxygen Delivery Mechanical Ventilation Fraction of Inspired Oxygen 30 30 09/06/25 12:00 09/06/25 12:25 09/06/25 13:00 Temperature Pulse Rate 102 H 119 H 112 H Respiratory Rate 12 13 Blood Pressure 113/64 Pulse Oximetry 100 Oxygen Delivery Fraction of Inspired Oxygen 09/06/25 13:30 09/06/25 14:00 09/06/25 14:00 Temperature Pulse Rate 116 H 150 H 123 H Respiratory Rate 18 17 Blood Pressure 120/73 Pulse Oximetry 100 100 Oxygen Delivery Mechanical Ventilation Fraction of Inspired Oxygen 30 09/06/25 14:00 09/06/25 14:06 09/06/25 14:30 Temperature Pulse Rate 123 H 122 H 118 H Respiratory Rate 16 20 Blood Pressure Pulse Oximetry Oxygen Delivery Fraction of Inspired Oxygen 09/06/25 15:00 09/06/25 15:25 09/06/25 15:28 Temperature 37.2 C Pulse Rate 110 H 112 H 106 H Respiratory Rate 17 Blood Pressure 81/51 L 64/44 L 89/53 L Pulse Oximetry 100 Oxygen Delivery Fraction of Inspired Oxygen 09/06/25 15:32 09/06/25 15:35 09/06/25 16:00 Temperature Pulse Rate 103 H 93 Respiratory Rate Blood Pressure 73/48 L 114/65 Pulse Oximetry Oxygen Delivery Fraction of Inspired Oxygen 30 09/06/25 16:00 09/06/25 16:00 09/06/25 16:00 Temperature 37.0 C Pulse Rate 100 100 Respiratory Rate 18 18 Blood Pressure 124/66 Pulse Oximetry 100 100 Oxygen Delivery Mechanical Ventilation Fraction of Inspired Oxygen 30 09/06/25 16:00 09/06/25 16:00 09/06/25 16:40 Temperature Pulse Rate 100 94 106 H Respiratory Rate Blood Pressure 124/66 Pulse Oximetry 100 Oxygen Delivery Mechanical Ventilation Fraction of Inspired Oxygen 30 09/06/25 17:00 09/06/25 18:00 09/06/25 18:00 Temperature 37.0 C 37.2 C Pulse Rate 105 H 102 H 103 H Respiratory Rate 18 20 Blood Pressure 125/61 128/63 Pulse Oximetry 100 100 Oxygen Delivery Fraction of Inspired Oxygen 09/06/25 18:00 09/06/25 18:00 09/06/25 18:00 Temperature 37.0 C Pulse Rate 103 H 103 H 103 H Respiratory Rate 18 18 Blood Pressure 128/63 128/63 Pulse Oximetry 100 Oxygen Delivery Fraction of Inspired Oxygen 09/06/25 18:24 09/06/25 19:00 09/06/25 19:36 Temperature Pulse Rate 97 94 112 H Respiratory Rate 19 16 Blood Pressure 120/61 117/64 Pulse Oximetry 100 Oxygen Delivery Fraction of Inspired Oxygen 09/06/25 19:36 09/06/25 20:00 09/06/25 20:00 Temperature 37.1 C Pulse Rate 112 H 93 Respiratory Rate 16 18 Blood Pressure 119/66 Pulse Oximetry 100 Oxygen Delivery Fraction of Inspired Oxygen 30 09/06/25 20:00 09/06/25 20:00 09/06/25 20:00 Temperature Pulse Rate 93 97 Respiratory Rate 18 Blood Pressure Pulse Oximetry 100 Oxygen Delivery Mechanical Ventilation Fraction of Inspired Oxygen 30 09/06/25 20:15 09/06/25 20:20 09/06/25 20:46 Temperature Pulse Rate 103 H 108 H 103 H Respiratory Rate 18 Blood Pressure 122/62 Pulse Oximetry 100 Oxygen Delivery Mechanical Ventilation Fraction of Inspired Oxygen 30 09/06/25 20:58 09/06/25 21:00 09/06/25 21:25 Temperature Pulse Rate 119 H 115 H 140 H Respiratory Rate 16 17 22 H Blood Pressure 132/64 Pulse Oximetry 100 Oxygen Delivery Fraction of Inspired Oxygen 09/06/25 22:00 09/06/25 22:00 09/06/25 22:00 Temperature 37.1 C Pulse Rate 109 H 109 H 109 H Respiratory Rate 17 17 Blood Pressure 124/72 124/72 Pulse Oximetry 100 Oxygen Delivery Fraction of Inspired Oxygen 09/06/25 22:00 09/06/25 22:30 09/06/25 22:30 Temperature Pulse Rate 109 H 106 H 106 H Respiratory Rate 18 Blood Pressure 116/65 Pulse Oximetry Oxygen Delivery Fraction of Inspired Oxygen 09/06/25 22:55 09/06/25 23:00 09/07/25 00:00 Temperature Pulse Rate 95 101 H 90 Respiratory Rate 20 18 Blood Pressure 106/57 L Pulse Oximetry 100 100 Oxygen Delivery Mechanical Ventilation Fraction of Inspired Oxygen 30 09/07/25 00:00 09/07/25 00:00 09/07/25 00:00 Temperature 36.9 C Pulse Rate 90 90 Respiratory Rate 18 Blood Pressure 117/61 117/61 Pulse Oximetry 100 Oxygen Delivery Fraction of Inspired Oxygen 30 09/07/25 00:00 09/07/25 00:00 09/07/25 00:29 Temperature Pulse Rate 91 99 Respiratory Rate Blood Pressure 127/67 Pulse Oximetry 100 Oxygen Delivery Mechanical Ventilation Fraction of Inspired Oxygen 30 09/07/25 00:40 09/07/25 01:00 09/07/25 02:00 Temperature 36.9 C Pulse Rate 154 H 101 H 98 Respiratory Rate 20 19 20 Blood Pressure 117/59 L 106/59 L Pulse Oximetry 100 100 Oxygen Delivery Fraction of Inspired Oxygen 09/07/25 02:00 09/07/25 02:00 09/07/25 02:00 Temperature Pulse Rate 98 98 98 Respiratory Rate 20 Blood Pressure 111/64 Pulse Oximetry Oxygen Delivery Fraction of Inspired Oxygen 09/07/25 02:30 09/07/25 02:34 09/07/25 02:34 Temperature Pulse Rate 91 86 96 Respiratory Rate 20 Blood Pressure 122/58 L Pulse Oximetry 100 Oxygen Delivery Mechanical Ventilation Fraction of Inspired Oxygen 30 09/07/25 02:42 09/07/25 03:00 09/07/25 03:39 Temperature Pulse Rate 93 104 H 97 Respiratory Rate 17 17 17 Blood Pressure 106/57 L Pulse Oximetry 99 Oxygen Delivery Fraction of Inspired Oxygen 09/07/25 03:39 09/07/25 04:00 09/07/25 04:00 Temperature 36.8 C Pulse Rate 97 125 H 125 H Respiratory Rate 17 19 19 Blood Pressure 113/63 Pulse Oximetry 98 Oxygen Delivery Fraction of Inspired Oxygen 09/07/25 04:00 09/07/25 04:00 09/07/25 04:00 Temperature Pulse Rate 125 H 108 H Respiratory Rate Blood Pressure 113/63 Pulse Oximetry Oxygen Delivery Fraction of Inspired Oxygen 09/07/25 04:00 09/07/25 05:00 09/07/25 05:05 Temperature Pulse Rate 91 89 Respiratory Rate 17 Blood Pressure 99/58 L Pulse Oximetry 100 100 99 Oxygen Delivery Mechanical Ventilation Mechanical Ventilation Fraction of Inspired Oxygen 09/07/25 06:00 09/07/25 06:00 09/07/25 06:00 Temperature Pulse Rate 91 91 91 Respiratory Rate 18 Blood Pressure 99/56 L Pulse Oximetry Oxygen Delivery Fraction of Inspired Oxygen 09/07/25 06:00 09/07/25 07:00 09/07/25 07:00 Temperature 36.9 C Pulse Rate 91 100 101 H Respiratory Rate 18 20 19 Blood Pressure 99/56 L 116/68 Pulse Oximetry 99 100 Oxygen Delivery Fraction of Inspired Oxygen 09/07/25 07:51 09/07/25 08:00 09/07/25 08:12 Temperature 36.4 C Pulse Rate 86 94 92 Respiratory Rate 17 19 Blood Pressure 111/61 Pulse Oximetry 100 99 Oxygen Delivery Mechanical Ventilation Fraction of Inspired Oxygen 09/07/25 08:12 09/07/25 08:25 09/07/25 08:51 Temperature Pulse Rate 92 89 104 H Respiratory Rate 20 18 Blood Pressure Pulse Oximetry 100 Oxygen Delivery Mechanical Ventilation Fraction of Inspired Oxygen 09/07/25 09:00 09/07/25 09:00 09/07/25 09:24 Temperature 36.4 C L Pulse Rate 102 H 101 H 103 H Respiratory Rate 15 17 17 Blood Pressure 112/64 Pulse Oximetry 99 Oxygen Delivery Fraction of Inspired Oxygen Intake/Output Intake/Output: Intake & Output 09/04/25 09/05/25 09/06/25 09/07/25 23:59 23:59 23:59 23:59 Intake Total 824.3 1981.1333 1593.2 541.5 Output Total 305 088 2891 375 Balance 374.3 1456.1333 393.2 166.5 Meds/Results Medications: Active Medications Generic Name Dose Route Start Last Admin Trade Name Freq PRN Reason Stop Dose Admin Acetaminophen 650 mg 08/30/25 10:58 Acetaminophen 325 Mg Tablet PO Q4H PRN Mild Pain (1-3) or Fever Albuterol/Ipratropium 3 ml 09/01/25 08:55 09/07/25 08:11 Ipratropium 0.5 Mg/Albuterol Sulfate 2.5 Mg (Base) Ampul.Neb 3 Ml INHALATION 3 ml Q6HRT DARIEN Administration Lidocaine HCl 30 ml/ Al Hydrox 0 ml 08/30/25 17:00 09/03/25 07:00 /Mg Hydrox/Simethicone 30 ml/ PO Not Given Diphenhydramine HCl 75 mg Q4HWA DARIEN On Hold: 09/03/25 07:00 Dextrose 12.5 gm 09/03/25 10:06 Dextrose 50% 25 Gm/50 Ml Syringe IV PUSH PRN PRN Hypoglycemia Protocol Fenofibrate 145 mg 09/01/25 09:00 09/07/25 09:30 Fenofibrate 145 Mg Tablet PO 145 mg QAM DARIEN Administration Glucagon 1 mg 09/03/25 10:06 Glucagon For Inj 1 Mg Vial IM PRN PRN Hypoglycemia Protocol Glucose 15 gm 09/03/25 10:06 Glucose Oral Gel 15 Gm Of Glucse In 37.5 Gm Tube PO PRN PRN Hypoglycemia Protocol Heparin Sodium (Beef Lung) 50 units 09/03/25 09:00 09/07/25 09:30 Heparin Flush 50 Units/5 Ml Syringe IV PUSH 50 units QAM DARIEN Administration Heparin Sodium (Beef Lung) 50 units 09/03/25 07:03 Heparin Flush 50 Units/5 Ml Syringe IV PUSH PRN PRN after intermittent infusion Heparin Sodium (Beef Lung) 50 units 09/03/25 07:03 Heparin Flush 50 Units/5 Ml Syringe IV PUSH PRN PRN after blood draws Heparin Sodium (Porcine) 500 units 09/03/25 07:03 Heparin Sodium Lock Flush 500 Units/5 Ml Syringe IV PUSH PRN PRN see comments below Dextrose 1,000 mls @ 100 mls/hr 09/03/25 10:06 Dextrose 5% 1,000 Ml IVPB PRN PRN Hypoglycemia Protocol Meropenem 1 gm/ Sodium 100 mls @ 200 mls/hr 09/03/25 11:00 09/07/25 03:40 Chloride IVPB Infused Q8H DARIEN Infusion Micafungin Sodium 100 mg/ 100 mls @ 100 mls/hr 09/03/25 14:00 09/06/25 13:52 Sodium Chloride IVPB 100 mls/hr Q24H DARIEN Administration Dexmedetomidine HCl 400 mcg in 100 mls @ 10.013 mls/hr 09/05/25 13:40 09/07/25 09:24 Precedex 400 Mcg/100 Ml IV CONT 0.5 mcg/kg/hr .Q10H DARIEN 10.01 mls/hr Protocol Titration 0.5 MCG/KG/HR Norepinephrine Bitartrate 8 mg in 250 mls @ 7.5 mls/hr 09/06/25 15:20 09/07/25 06:00 Levophed 8 Mg/D5w 250 Ml IV CONT 4 mcg/min .Q24H DARIEN 7.5 mls/hr Protocol Titration 4 MCG/MIN Vancomycin HCl 1,250 mg in 250 mls @ 166.667 mls/hr 09/06/25 19:00 09/06/25 20:18 Vancomycin 1,250 Mg/Ns 250 Ml IVPB Infused Q18H DARIEN Infusion Calcium Gluconate 2,000 mg in 100 mls @ 100 mls/hr 09/07/25 09:00 09/07/25 09:27 Calcium Gluc 2,000 Mg/Ns 100ml IVPB 09/07/25 09:59 100 mls/hr ONCE ONE Administration Insulin Aspart 2 - 5 units 09/03/25 10:10 09/07/25 06:11 Insulin Aspart (*Bkc) 100 Units/Ml SUB-Q Not Given Q4HR [facility] Protocol Lidocaine HCl 1 applic 08/30/25 20:34 08/31/25 09:34 Lidocaine 4% Soln 50 Ml Btl TOPICAL 1 applic PRN PRN Administration Pain Loratadine 10 mg 08/31/25 21:00 09/07/25 09:30 Loratadine 10 Mg Tablet PO 10 mg QAM DARIEN Administration Metoprolol Succinate 25 mg 08/31/25 13:45 09/02/25 11:31 Metoprolol Succinate Ext Rel 25 Mg Tabcr PO Not Given On Hold: 09/03/25 03:09 QAM DARIEN Multi-Ingred Cream/Lotion/Oil/Oint 1 applic 09/03/25 09:00 09/07/25 09:28 Mineral Oil/White Petrolatum Ointment EACH EYE 1 applic Q12HR DARIEN Administration Pantoprazole Sodium 40 mg 09/03/25 21:00 09/07/25 09:27 Pantoprazole Sodium Iv 40 Mg Vial IV PUSH 40 mg Q12HR DARIEN Administration Sodium Chloride 10 ml 09/03/25 14:00 09/07/25 06:11 Central Line Flush IV PUSH 10 ml Q8HR DARIEN Administration Tamsulosin HCl 0.4 mg 09/01/25 09:00 09/07/25 09:30 Tamsulosin Hcl 0.4 Mg Capsule PO 0.4 mg DAILY DARIEN Administration Vitamin D 125 mcg 09/01/25 09:00 09/07/25 09:30 Cholecalciferol (Vitamin D3) 125 Mcg (5,000 Units) Tablet PO 125 mcg DAILY DARIEN Administration Radiology Results: ITS Impressions Head CT 09/03/25 06:23 IMPRESSION: 1. No acute intracranial findings. Head/Neck CTA 09/03/25 06:30 IMPRESSION: CT HEAD: 1. No acute intracranial findings. CTA NECK: 1. Motion artifact along carotid bulbs. Stenosis or even dissection not excluded. Recommend carotid ultrasound. CTA HEAD: 1. No large vessel arterial occlusive disease or other acute findings. 2. No aneurysms. Chest CT 09/03/25 07:26 IMPRESSION: 1. Significant decrease in lung volumes with prominent dependent atelectasis including partial collapse of the bilateral lower lobes. Superimposed pneumonia not excludable. 2. No significant change in small left and moderate-sized right pleural effusions. 3. Moderate amount of ascites in the upper abdomen. 4. Scattered sclerotic bone lesions consistent with known metastatic prostate cancer and with chronic pathologic fracture at T10. Carotid Doppler Study 09/03/25 17:25 IMPRESSION: 1. >=70% (but less than near occlusion) stenosis in the right internal carotid artery. 2. >=70% (but less than near occlusion) stenosis in the left internal carotid artery. 3. The degree of stenosis indicated by the increased velocities is greater than would be expected given the amount of calcified atherosclerotic plaque evident on the prior CT angiogram. This suggests that the lower density linear filling defects at the bilateral carotid bulbs seen on the prior CT angiogram are not artifactual and likely to represent small dissection flaps. Abdomen X-Ray 09/04/25 07:07 IMPRESSION: 1: NG tube tip in the stomach. 2: Bibasilar airspace disease may represent edema or pneumonia. Chest X-Ray 09/07/25 08:28 Impression: Mild progression Labs Labs: Laboratory Results - last 24 hr 09/06/25 09/06/25 09/06/25 12:08 12:45 13:15 WBC RBC Hgb Hct MCV MCH MCHC RDW Plt Count MPV Immature Gran % (Auto) Neut % (Auto) Lymph % (Auto) [place] % (Auto) Eos % (Auto) Baso % (Auto) Lymph # (Auto) [place] # (Auto) Eos # (Auto) Baso # (Auto) Abs Immat Gran (auto) Absolute Neuts (auto) Absolute Nucleated RBC Band Neutrophils % Nucleated RBC % Platelet Estimate Poikilocytosis Anisocytosis Schistocytes PT INR APTT Puncture Site Right brachial Left brachial ABG pH 7.419 7.445 ABG pCO2 41.0 35.9 ABG pO2 < 27.0 L* 49.7 L* ABG PO2/FiO2 Ratio 1.66 ABG HCO3 25.9 24.1 ABG O2 Saturation 87.0 L* ABG O2 Content 13.1 L ABG Base Excess 1.3 0.3 A-a Gradient 122.0 Oxyhemoglobin 86.1 L* Carboxyhemoglobin Methemoglobin Reduced Hemoglobin Total Hemoglobin 10.8 L O2 Delivery Device Ventilator Ventilator O2 Liters/Min 0.0 0.0 Minute Volume 0.0 0.0 Vent Rate 0 0 Vent Mode Pressure support Pressure support FiO2 30 30 Tidal Volume 0 0 PEEP 5 5 Peak Inspir Pressure 0 0 Pressure Support 8 8 Sodium Potassium Chloride Carbon Dioxide Anion Gap BUN Creatinine Estim Creat Clear Calc Estimated GFR Glucose POC Capillary Glucose 102 Lactic Acid Calcium Phosphorus Magnesium Total Bilirubin AST ALT Alkaline Phosphatase Total Protein Albumin Vancomycin Trough 09/06/25 09/06/25 09/06/25 15:11 17:11 17:18 WBC RBC Hgb Hct MCV MCH MCHC RDW Plt Count MPV Immature Gran % (Auto) Neut % (Auto) Lymph % (Auto) [place] % (Auto) Eos % (Auto) Baso % (Auto) Lymph # (Auto) [place] # (Auto) Eos # (Auto) Baso # (Auto) Abs Immat Gran (auto) Absolute Neuts (auto) Absolute Nucleated RBC Band Neutrophils % Nucleated RBC % Platelet Estimate Poikilocytosis Anisocytosis Schistocytes PT INR APTT Puncture Site ABG pH ABG pCO2 ABG pO2 ABG PO2/FiO2 Ratio ABG HCO3 ABG O2 Saturation ABG O2 Content ABG Base Excess A-a Gradient Oxyhemoglobin Carboxyhemoglobin Methemoglobin Reduced Hemoglobin Total Hemoglobin O2 Delivery Device O2 Liters/Min Minute Volume Vent Rate Vent Mode FiO2 Tidal Volume PEEP Peak Inspir Pressure Pressure Support Sodium Potassium Chloride Carbon Dioxide Anion Gap BUN Creatinine Estim Creat Clear Calc Estimated GFR Glucose POC Capillary Glucose 92 113 H Lactic Acid Calcium Phosphorus Magnesium Total Bilirubin AST ALT Alkaline Phosphatase Total Protein Albumin Vancomycin Trough 19.8 09/06/25 09/07/25 09/07/25 20:08 02:57 04:08 WBC 18.1 H RBC 3.13 L Hgb 9.6 L Hct 30.2 L MCV 96.5 MCH 30.7 MCHC 31.8 L RDW 21.0 H Plt Count 147 L MPV 11.0 H Immature Gran % (Auto) 6.4 H Neut % (Auto) 75.5 H Lymph % (Auto) 5.0 L [place] % (Auto) 12.5 H Eos % (Auto) 0.0 Baso % (Auto) 0.6 Lymph # (Auto) 0.90 [place] # (Auto) 2.3 H Eos # (Auto) 0.0 Baso # (Auto) 0.1 Abs Immat Gran (auto) 1.16 H Absolute Neuts (auto) 13.6 H Absolute Nucleated RBC 0.050 H Band Neutrophils % Not Reportable Nucleated RBC % 0.3 H Platelet Estimate Adequate Poikilocytosis 1+ Anisocytosis 1+ Schistocytes None seen PT 17.4 H INR 1.4 APTT 52.8 H Puncture Site ABG pH ABG pCO2 ABG pO2 ABG PO2/FiO2 Ratio ABG HCO3 ABG O2 Saturation ABG O2 Content ABG Base Excess A-a Gradient Oxyhemoglobin Carboxyhemoglobin Methemoglobin Reduced Hemoglobin Total Hemoglobin O2 Delivery Device O2 Liters/Min Minute Volume Vent Rate Vent Mode FiO2 Tidal Volume PEEP Peak Inspir Pressure Pressure Support Sodium 139 Potassium 3.6 Chloride 110 H Carbon Dioxide 26 Anion Gap 3 L BUN 24 H Creatinine 0.61 L Estim Creat Clear Calc 86 Estimated GFR > 60 Glucose 144 H POC Capillary Glucose 133 H 161 H Lactic Acid 0.9 Calcium 7.1 L Phosphorus 2.6 Magnesium 2.3 Total Bilirubin 0.9 AST 103 H ALT 28 Alkaline Phosphatase 111 Total Protein 4.4 L Albumin 2.4 L Vancomycin Trough 09/07/25 09/07/25 09/07/25 05:27 06:05 08:01 WBC RBC Hgb Hct MCV MCH MCHC RDW Plt Count MPV Immature Gran % (Auto) Neut % (Auto) Lymph % (Auto) [place] % (Auto) Eos % (Auto) Baso % (Auto) Lymph # (Auto) [place] # (Auto) Eos # (Auto) Baso # (Auto) Abs Immat Gran (auto) Absolute Neuts (auto) Absolute Nucleated RBC Band Neutrophils % Nucleated RBC % Platelet Estimate Poikilocytosis Anisocytosis Schistocytes PT INR APTT Puncture Site Right brachial ABG pH 7.466 H ABG pCO2 34.6 L ABG pO2 76.9 L ABG PO2/FiO2 Ratio 3.08 ABG HCO3 24.4 ABG O2 Saturation 96.1 ABG O2 Content 14.0 L ABG Base Excess 0.9 A-a Gradient 60.3 Oxyhemoglobin 94.9 Carboxyhemoglobin 0.6 Methemoglobin 0.1 Reduced Hemoglobin 4.4 Total Hemoglobin 10.4 L O2 Delivery Device Ventilator O2 Liters/Min Not Reportable Minute Volume Not Reportable Vent Rate 16 Vent Mode Cmv FiO2 25 Tidal Volume 400 PEEP 5 Peak Inspir Pressure Not Reportable Pressure Support Not Reportable Sodium Potassium Chloride Carbon Dioxide Anion Gap BUN Creatinine Estim Creat Clear Calc Estimated GFR Glucose POC Capillary Glucose 173 H 151 H Lactic Acid Calcium Phosphorus Magnesium Total Bilirubin AST ALT Alkaline Phosphatase Total Protein Albumin Vancomycin Trough Quality VTE Prophylaxis VTE prophylaxis: mechanical ordered
--- NOTE | 2025-09-07 10:51 | PCFNICU ---
ICU Rounding Note: Pt current nutrition is Vital 1.2 @ 20 ml/h with flushes 30 ml q 4 hours. Nutrition recommendation: If pt is not extubated, increase tube feeding to goal rate 65 ml/h with flushes 30 ml q 4 hours to meet estimated needs Last recorded weight is 82.7 kg. Current weight is likely an error. Reported to nursing and attempt to re-weigh patient. Recalculate weight-based equations when weight is re-checked. Bowel Motility: +1 BM 09/07 Labs Reviewed: Hgb 9.6, Hct 30.2, Alb 2.4, BUN 24, Cre 0.61, Glu 144 Meds Noted: Precedex, levophed, vancomycin Skin: No pressure injuries Additional Notes: Remains on vent with Vital 1.2 running @ 20 ml/h, not advanced. Per MD, breathing trial today and if not extubated, will advance tube feeding to 65 ml/h goal. To provide 1716 kcal, 107 g protein, 1160 ml free water. Following daily in ICU rounds. Monitor intake, wt, labs. Follow up in 5 days. .
[2025-09-07] MEDS: dexmedeTOMIDine 400 MCG/100 ML 400 MCG/100 ML BAG 10.01 MCG IV CONT (11:53)
[2025-09-07] MEDS: VANCOMYCIN 1,250 MG/NS 250 ML 1,250 MG/250 ML BAG 166.6 MG IVPB (13:21)
[2025-09-07] MEDS: MICAFUNGIN SODIUM 100 MG in SODIUM CHLORIDE 0.9% IV 100 ML IVPB (13:21)
[2025-09-07 14:55] LABS: Anion Gap -3 mmol/L (4-12); Blood Urea Nitrogen 21 mg/dL (9-20); Calcium 7.7 mg/dL (8.4-10.2); Carbon Dioxide 30 mmol/L (22-30); Chloride 109 mmol/L (98-107); Estimated CRCL calculation 84 ml/min; Estimated Glomerular Filt Rate > 60; Glucose 150 mg/dL (65-110); Magnesium 2.0 mg/dL (1.6-2.3); Potassium 3.8 mmol/L (3.4-5.0); Sodium 136 mmol/L (137-145)
[2025-09-07] MEDS: NOREPINEPHRINE 8 MG/D5W 250 ML 8 MG/250 ML BAG 3.75 MG IV CONT (17:07)
[2025-09-07] MEDS: POTASSIUM CHLORIDE 20 MEQ PACKET (FOR LIQUID) 40 MEQ PO (19:53)
--- NOTE | 2025-09-07 21:01 | WPDINFPN2 ---
Progress Note: A&P Assessment and Plan (1) Fever and neutropenia: Code(s): D70.9 - Neutropenia, unspecified; R50.81 - Fever presenting with conditions classified elsewhere Status: Acute (2) Pneumonia: Code(s): J18.9 - Pneumonia, unspecified organism Status: Acute (3) Stomatitis and mucositis: Code(s): K12.1 - Other forms of stomatitis; K12.30 - Oral mucositis (ulcerative), unspecified Status: Acute (4) Candidal balano-posthitis: Code(s): B37.49 - Other urogenital candidiasis Status: Acute (5) Septic shock: Code(s): A41.9 - Sepsis, unspecified organism; R65.21 - Severe sepsis with septic shock Status: Acute (6) Encephalopathy: Code(s): G93.40 - Encephalopathy, unspecified Status: Acute (7) Metastatic malignant neoplasm to prostate: Code(s): C79.82 - Secondary malignant neoplasm of genital organs Status: Acute Plan # Post chemotherapy neutropenia without fever -- neutropenia now resolved. # original admission with Possible left lung base pneumonia. -- originally placed on cefepime, azithromycin, and vancomycin. # Development of severe sepsis with shock. on a pressor -- now associated with progressive respiratory disease including pleural effusions, pleural atelectasis, and bilateral pneumonitis. -- no longer neutropenic but the above may have been developing while initially neutropenic. -- pleural fluid cultures and repeat blood cultures are unrevealing. Bronchoscopy cultures also unrevealing to date -- antibiotics have been broadened to Meropenem, vancomycin, and micafungin--continue these for now # Post chemotherapy mucositis. # Balanitis. -- micafungin # Metastatic prostate cancer. will continue to monitor cultures d/w family and pharmacy staff Patient was seen via video telehealth consultation with the assistance of staff. Chart, data, and patient independently reviewed. Patient was located at [facility] while I was located in my [place] office. Received verbal consent from patient. Subjective Date/time seen: 09/07/25 21:01 Interval history: No high temps On a pressor and sedated on vent getting PS trial at my visit Not much pulmonary secretions making urine Exam Narrative: on vent +ETT +OGT Cor: tachy Chest with Right PAC abd soft +edema +pereyra Objective Data Vital Signs Vital Signs: Vital Signs - 24 hr 09/06/25 21:25 09/06/25 22:00 09/06/25 22:00 Temperature Pulse Rate 140 H 109 H 109 H Respiratory Rate 22 H 17 Blood Pressure 124/72 Pulse Oximetry Oxygen Delivery Fraction of Inspired Oxygen 09/06/25 22:00 09/06/25 22:00 09/06/25 22:30 Temperature 98.7 F Pulse Rate 109 H 109 H 106 H Respiratory Rate 17 18 Blood Pressure 124/72 Pulse Oximetry 100 Oxygen Delivery Fraction of Inspired Oxygen 09/06/25 22:30 09/06/25 22:55 09/06/25 23:00 Temperature Pulse Rate 106 H 95 101 H Respiratory Rate 20 Blood Pressure 116/65 106/57 L Pulse Oximetry 100 100 Oxygen Delivery Mechanical Ventilation Fraction of Inspired Oxygen 30 09/07/25 00:00 09/07/25 00:00 09/07/25 00:00 Temperature 98.4 F Pulse Rate 90 90 90 Respiratory Rate 18 18 Blood Pressure 117/61 117/61 Pulse Oximetry 100 Oxygen Delivery Fraction of Inspired Oxygen 09/07/25 00:00 09/07/25 00:00 09/07/25 00:00 Temperature Pulse Rate 91 Respiratory Rate Blood Pressure Pulse Oximetry 100 Oxygen Delivery Mechanical Ventilation Fraction of Inspired Oxygen 30 30 09/07/25 00:29 09/07/25 00:40 09/07/25 01:00 Temperature Pulse Rate 99 154 H 101 H Respiratory Rate 20 19 Blood Pressure 127/67 117/59 L Pulse Oximetry 100 Oxygen Delivery Fraction of Inspired Oxygen 09/07/25 02:00 09/07/25 02:00 09/07/25 02:00 Temperature 98.4 F Pulse Rate 98 98 98 Respiratory Rate 20 20 Blood Pressure 106/59 L Pulse Oximetry 100 Oxygen Delivery Fraction of Inspired Oxygen 09/07/25 02:00 09/07/25 02:30 09/07/25 02:34 Temperature Pulse Rate 98 91 86 Respiratory Rate 20 Blood Pressure 111/64 122/58 L Pulse Oximetry Oxygen Delivery Fraction of Inspired Oxygen 09/07/25 02:34 09/07/25 02:42 09/07/25 03:00 Temperature Pulse Rate 96 93 104 H Respiratory Rate 17 17 Blood Pressure 106/57 L Pulse Oximetry 100 99 Oxygen Delivery Mechanical Ventilation Fraction of Inspired Oxygen 30 09/07/25 03:39 09/07/25 03:39 09/07/25 04:00 Temperature 98.3 F Pulse Rate 97 97 125 H Respiratory Rate 17 17 19 Blood Pressure 113/63 Pulse Oximetry 98 Oxygen Delivery Fraction of Inspired Oxygen 09/07/25 04:00 09/07/25 04:00 09/07/25 04:00 Temperature Pulse Rate 125 H 125 H Respiratory Rate 19 Blood Pressure 113/63 Pulse Oximetry Oxygen Delivery Fraction of Inspired Oxygen 30 09/07/25 04:00 09/07/25 04:00 09/07/25 05:00 Temperature Pulse Rate 108 H 91 Respiratory Rate 17 Blood Pressure 99/58 L Pulse Oximetry 100 100 Oxygen Delivery Mechanical Ventilation Fraction of Inspired Oxygen 09/07/25 05:05 09/07/25 06:00 09/07/25 06:00 Temperature Pulse Rate 89 91 91 Respiratory Rate 18 Blood Pressure Pulse Oximetry 99 Oxygen Delivery Mechanical Ventilation Fraction of Inspired Oxygen 09/07/25 06:00 09/07/25 06:00 09/07/25 07:00 Temperature 98.4 F Pulse Rate 91 91 100 Respiratory Rate 18 20 Blood Pressure 99/56 L 99/56 L 116/68 Pulse Oximetry 99 100 Oxygen Delivery Fraction of Inspired Oxygen 09/07/25 07:00 09/07/25 07:00 09/07/25 07:51 Temperature 97.6 F Pulse Rate 101 H 101 H 86 Respiratory Rate 19 17 Blood Pressure 116/68 111/61 Pulse Oximetry 100 Oxygen Delivery Fraction of Inspired Oxygen 09/07/25 08:00 09/07/25 08:00 09/07/25 08:00 Temperature Pulse Rate 94 94 84 Respiratory Rate 19 17 Blood Pressure 117/60 Pulse Oximetry 99 Oxygen Delivery Mechanical Ventilation Fraction of Inspired Oxygen 25 09/07/25 08:00 09/07/25 08:00 09/07/25 08:12 Temperature Pulse Rate 84 92 Respiratory Rate Blood Pressure Pulse Oximetry 99 Oxygen Delivery Mechanical Ventilation Fraction of Inspired Oxygen 25 25 09/07/25 08:12 09/07/25 08:25 09/07/25 08:51 Temperature Pulse Rate 92 89 104 H Respiratory Rate 20 18 Blood Pressure Pulse Oximetry 100 Oxygen Delivery Mechanical Ventilation Fraction of Inspired Oxygen 25 09/07/25 09:00 09/07/25 09:00 09/07/25 09:00 Temperature 97.5 F L Pulse Rate 102 H 101 H 101 H Respiratory Rate 15 17 Blood Pressure 112/64 112/64 Pulse Oximetry 99 Oxygen Delivery Fraction of Inspired Oxygen 09/07/25 09:24 09/07/25 10:00 09/07/25 10:00 Temperature Pulse Rate 103 H 124 H 111 H Respiratory Rate 17 Blood Pressure 125/76 Pulse Oximetry Oxygen Delivery Fraction of Inspired Oxygen 09/07/25 10:00 09/07/25 10:00 09/07/25 10:25 Temperature 97.6 F Pulse Rate 115 H 124 H 112 H Respiratory Rate 17 15 Blood Pressure 104/66 Pulse Oximetry 99 99 Oxygen Delivery Mechanical Ventilation Fraction of Inspired Oxygen 25 09/07/25 11:00 09/07/25 11:00 09/07/25 11:00 Temperature 97.6 F Pulse Rate 111 H 115 H 112 H Respiratory Rate 15 15 Blood Pressure 95/61 L 95/61 L 95/61 L Pulse Oximetry 100 99 Oxygen Delivery Fraction of Inspired Oxygen 09/07/25 11:53 09/07/25 11:55 09/07/25 12:00 Temperature Pulse Rate 116 H 114 H 116 H Respiratory Rate 14 15 Blood Pressure 109/66 Pulse Oximetry 100 100 Oxygen Delivery Mechanical Ventilation Fraction of Inspired Oxygen 09/07/25 12:00 09/07/25 12:00 09/07/25 12:00 Temperature Pulse Rate 128 H 128 H Respiratory Rate 18 Blood Pressure Pulse Oximetry 99 Oxygen Delivery Mechanical Ventilation Fraction of Inspired Oxygen 25 25 09/07/25 12:01 09/07/25 13:00 09/07/25 13:00 Temperature 97.6 F Pulse Rate 113 H 115 H 109 H Respiratory Rate 16 Blood Pressure 95/54 L 124/73 92/54 L Pulse Oximetry 100 Oxygen Delivery Fraction of Inspired Oxygen 09/07/25 13:00 09/07/25 13:34 09/07/25 13:34 Temperature Pulse Rate 109 H 110 H 110 H Respiratory Rate 15 15 Blood Pressure Pulse Oximetry 100 Oxygen Delivery Mechanical Ventilation Fraction of Inspired Oxygen 25 09/07/25 13:41 09/07/25 13:53 09/07/25 14:00 Temperature Pulse Rate 108 H 119 H 113 H Respiratory Rate 13 16 Blood Pressure 82/49 L 90/49 L Pulse Oximetry 100 Oxygen Delivery Fraction of Inspired Oxygen 09/07/25 14:00 09/07/25 14:00 09/07/25 14:28 Temperature Pulse Rate 113 H 121 H 119 H Respiratory Rate 14 Blood Pressure Pulse Oximetry 100 Oxygen Delivery Mechanical Ventilation Fraction of Inspired Oxygen 25 09/07/25 15:00 09/07/25 15:00 09/07/25 15:00 Temperature 97.5 F L Pulse Rate 122 H 122 H 122 H Respiratory Rate 16 15 Blood Pressure 107/53 L 107/53 L Pulse Oximetry 100 Oxygen Delivery Fraction of Inspired Oxygen 09/07/25 16:00 09/07/25 16:00 09/07/25 16:00 Temperature Pulse Rate 119 H 122 H 124 H Respiratory Rate 15 17 Blood Pressure 88/57 L 96/61 L Pulse Oximetry 100 Oxygen Delivery Fraction of Inspired Oxygen 09/07/25 16:00 09/07/25 16:00 09/07/25 16:00 Temperature Pulse Rate 119 H 119 H Respiratory Rate 18 Blood Pressure Pulse Oximetry 100 Oxygen Delivery Mechanical Ventilation Fraction of Inspired Oxygen 25 25 09/07/25 17:00 09/07/25 17:00 09/07/25 17:00 Temperature Pulse Rate 123 H 120 H 120 H Respiratory Rate 18 15 Blood Pressure 110/62 Pulse Oximetry 100 100 Oxygen Delivery Mechanical Ventilation Fraction of Inspired Oxygen 25 09/07/25 17:07 09/07/25 17:07 09/07/25 18:00 Temperature Pulse Rate 120 H 120 H 122 H Respiratory Rate Blood Pressure 86/77 L 86/77 L Pulse Oximetry Oxygen Delivery Fraction of Inspired Oxygen 09/07/25 18:00 09/07/25 18:00 09/07/25 18:00 Temperature 99.6 F Pulse Rate 114 H 128 H Respiratory Rate 18 15 Blood Pressure 104/53 L Pulse Oximetry 99 Oxygen Delivery Fraction of Inspired Oxygen 09/07/25 18:00 09/07/25 19:00 09/07/25 19:37 Temperature 97.6 F Pulse Rate 128 H 134 H 128 H Respiratory Rate 18 19 Blood Pressure 101/64 115/65 Pulse Oximetry 99 Oxygen Delivery Fraction of Inspired Oxygen 09/07/25 19:39 09/07/25 20:00 09/07/25 20:00 Temperature Pulse Rate 129 H 125 H 125 H Respiratory Rate 16 Blood Pressure 94/63 L Pulse Oximetry 100 Oxygen Delivery Mechanical Ventilation Fraction of Inspired Oxygen 25 Intake/Output Intake/Output: Intake & Output 09/04/25 09/05/25 09/06/25 09/07/25 23:59 23:59 23:59 23:59 Intake Total 824.3 1981.1333 1693.2 768.4 Output Total 430 368 5991 2024 Balance 374.3 1456.1333 493.2 -1256.6 Meds/Results Medications: Active Medications Generic Name Dose Route Start Last Admin Trade Name Freq PRN Reason Stop Dose Admin Acetaminophen 650 mg 08/30/25 10:58 Acetaminophen 325 Mg Tablet PO Q4H PRN Mild Pain (1-3) or Fever Albuterol/Ipratropium 3 ml 09/01/25 08:55 09/07/25 19:36 Ipratropium 0.5 Mg/Albuterol Sulfate 2.5 Mg (Base) Ampul.Neb 3 Ml INHALATION 3 ml Q6HRT DARIEN Administration Lidocaine HCl 30 ml/ Al Hydrox 0 ml 08/30/25 17:00 09/03/25 07:00 /Mg Hydrox/Simethicone 30 ml/ PO Not Given Diphenhydramine HCl 75 mg Q4HWA DARIEN On Hold: 09/03/25 07:00 Dextrose 12.5 gm 09/03/25 10:06 Dextrose 50% 25 Gm/50 Ml Syringe IV PUSH PRN PRN Hypoglycemia Protocol Fenofibrate 145 mg 09/01/25 09:00 09/07/25 09:30 Fenofibrate 145 Mg Tablet PO 145 mg QAM DARIEN Administration Glucagon 1 mg 09/03/25 10:06 Glucagon For Inj 1 Mg Vial IM PRN PRN Hypoglycemia Protocol Glucose 15 gm 09/03/25 10:06 Glucose Oral Gel 15 Gm Of Glucse In 37.5 Gm Tube PO PRN PRN Hypoglycemia Protocol Heparin Sodium (Beef Lung) 50 units 09/03/25 09:00 09/07/25 09:30 Heparin Flush 50 Units/5 Ml Syringe IV PUSH 50 units QAM DARIEN Administration Heparin Sodium (Beef Lung) 50 units 09/03/25 07:03 Heparin Flush 50 Units/5 Ml Syringe IV PUSH PRN PRN after intermittent infusion Heparin Sodium (Beef Lung) 50 units 09/03/25 07:03 Heparin Flush 50 Units/5 Ml Syringe IV PUSH PRN PRN after blood draws Heparin Sodium (Porcine) 500 units 09/03/25 07:03 Heparin Sodium Lock Flush 500 Units/5 Ml Syringe IV PUSH PRN PRN see comments below Dextrose 1,000 mls @ 100 mls/hr 09/03/25 10:06 Dextrose 5% 1,000 Ml IVPB PRN PRN Hypoglycemia Protocol Meropenem 1 gm/ Sodium 100 mls @ 200 mls/hr 09/03/25 11:00 09/07/25 19:53 Chloride IVPB 200 mls/hr Q8H DARIEN Administration Micafungin Sodium 100 mg/ 100 mls @ 100 mls/hr 09/03/25 14:00 09/07/25 13:21 Sodium Chloride IVPB 100 mls/hr Q24H DARIEN Administration Dexmedetomidine HCl 400 mcg in 100 mls @ 6.008 mls/hr 09/05/25 13:40 09/07/25 20:00 Precedex 400 Mcg/100 Ml IV CONT 0.3 mcg/kg/hr .[id number] DARIEN 6.01 mls/hr Protocol Titration 0.3 MCG/KG/HR Norepinephrine Bitartrate 8 mg in 250 mls @ 5.625 mls/hr 09/06/25 15:20 09/07/25 20:00 Levophed 8 Mg/D5w 250 Ml IV CONT 3 mcg/min .Q24H DARIEN 5.63 mls/hr Protocol Titration 3 MCG/MIN Vancomycin HCl 1,250 mg in 250 mls @ 166.667 mls/hr 09/06/25 19:00 09/07/25 13:21 Vancomycin 1,250 Mg/Ns 250 Ml IVPB 166.6 mls/hr Q18H DARIEN Administration Insulin Aspart 2 - 5 units 09/03/25 10:10 09/07/25 20:17 Insulin Aspart (*Bkc) 100 Units/Ml SUB-Q Not Given Q4HR DARIEN Protocol Lidocaine HCl 1 applic 08/30/25 20:34 08/31/25 09:34 Lidocaine 4% Soln 50 Ml Btl TOPICAL 1 applic PRN PRN Administration Pain Loratadine 10 mg 08/31/25 21:00 09/07/25 09:30 Loratadine 10 Mg Tablet PO 10 mg QAM DARIEN Administration Miscellaneous Information 1 each 09/07/25 00:01 Please Renew Dexmedetomidine. Per [employer] Procedure, It Will Discontinue If Not Renewed XX 10/07/25 00:00 CLARIFY DARIEN Multi-Ingred Cream/Lotion/Oil/Oint 1 applic 09/03/25 09:00 09/07/25 20:06 Mineral Oil/White Petrolatum Ointment EACH EYE 1 applic Q12HR DARIEN Administration Pantoprazole Sodium 40 mg 09/03/25 21:00 09/07/25 20:06 Pantoprazole Sodium Iv 40 Mg Vial IV PUSH 40 mg Q12HR DARIEN Administration Sodium Chloride 10 ml 09/03/25 14:00 09/07/25 20:06 Central Line Flush IV PUSH 10 ml Q8HR DARIEN Administration Tamsulosin HCl 0.4 mg 09/01/25 09:00 09/07/25 09:30 Tamsulosin Hcl 0.4 Mg Capsule PO 0.4 mg DAILY DARIEN Administration Vitamin D 125 mcg 09/01/25 09:00 09/07/25 09:30 Cholecalciferol (Vitamin D3) 125 Mcg (5,000 Units) Tablet PO 125 mcg DAILY DARIEN Administration Radiology Results: ITS Impressions Head CT 09/03/25 06:23 IMPRESSION: 1. No acute intracranial findings. Head/Neck CTA 09/03/25 06:30 IMPRESSION: CT HEAD: 1. No acute intracranial findings. CTA NECK: 1. Motion artifact along carotid bulbs. Stenosis or even dissection not excluded. Recommend carotid ultrasound. CTA HEAD: 1. No large vessel arterial occlusive disease or other acute findings. 2. No aneurysms. Chest CT 09/03/25 07:26 IMPRESSION: 1. Significant decrease in lung volumes with prominent dependent atelectasis including partial collapse of the bilateral lower lobes. Superimposed pneumonia not excludable. 2. No significant change in small left and moderate-sized right pleural effusions. 3. Moderate amount of ascites in the upper abdomen. 4. Scattered sclerotic bone lesions consistent with known metastatic prostate cancer and with chronic pathologic fracture at T10. Carotid Doppler Study 09/03/25 17:25 IMPRESSION: 1. >=70% (but less than near occlusion) stenosis in the right internal carotid artery. 2. >=70% (but less than near occlusion) stenosis in the left internal carotid artery. 3. The degree of stenosis indicated by the increased velocities is greater than would be expected given the amount of calcified atherosclerotic plaque evident on the prior CT angiogram. This suggests that the lower density linear filling defects at the bilateral carotid bulbs seen on the prior CT angiogram are not artifactual and likely to represent small dissection flaps. Abdomen X-Ray 09/04/25 07:07 IMPRESSION: 1: NG tube tip in the stomach. 2: Bibasilar airspace disease may represent edema or pneumonia. Chest X-Ray 09/07/25 08:28 Impression: Mild progression Labs Labs: Laboratory Results - last 24 hr 09/07/25 09/07/25 09/07/25 02:57 04:08 05:27 WBC 18.1 H RBC 3.13 L Hgb 9.6 L Hct 30.2 L MCV 96.5 MCH 30.7 MCHC 31.8 L RDW 21.0 H Plt Count 147 L MPV 11.0 H Immature Gran % (Auto) 6.4 H Neut % (Auto) 75.5 H Lymph % (Auto) 5.0 L [place] % (Auto) 12.5 H Eos % (Auto) 0.0 Baso % (Auto) 0.6 Lymph # (Auto) 0.90 [place] # (Auto) 2.3 H Eos # (Auto) 0.0 Baso # (Auto) 0.1 Abs Immat Gran (auto) 1.16 H Absolute Neuts (auto) 13.6 H Absolute Nucleated RBC 0.050 H Band Neutrophils % Not Reportable Nucleated RBC % 0.3 H Platelet Estimate Adequate Poikilocytosis 1+ Anisocytosis 1+ Schistocytes None seen PT 17.4 H INR 1.4 APTT 52.8 H Puncture Site Right brachial ABG pH 7.466 H ABG pCO2 34.6 L ABG pO2 76.9 L ABG PO2/FiO2 Ratio 3.08 ABG HCO3 24.4 ABG O2 Saturation 96.1 ABG O2 Content 14.0 L ABG Base Excess 0.9 A-a Gradient 60.3 Oxyhemoglobin 94.9 Carboxyhemoglobin 0.6 Methemoglobin 0.1 Reduced Hemoglobin 4.4 Total Hemoglobin 10.4 L O2 Delivery Device Ventilator O2 Liters/Min Not Reportable Minute Volume Not Reportable Vent Rate 16 Vent Mode Cmv FiO2 25 Tidal Volume 400 PEEP 5 Peak Inspir Pressure Not Reportable Pressure Support Not Reportable Sodium 139 Potassium 3.6 Chloride 110 H Carbon Dioxide 26 Anion Gap 3 L BUN 24 H Creatinine 0.61 L Estim Creat Clear Calc 86 Estimated GFR > 60 Glucose 144 H POC Capillary Glucose 161 H Lactic Acid 0.9 Calcium 7.1 L Phosphorus 2.6 Magnesium 2.3 Total Bilirubin 0.9 AST 103 H ALT 28 Alkaline Phosphatase 111 Total Protein 4.4 L Albumin 2.4 L 09/07/25 09/07/25 09/07/25 06:05 08:01 12:09 WBC RBC Hgb Hct MCV MCH MCHC RDW Plt Count MPV Immature Gran % (Auto) Neut % (Auto) Lymph % (Auto) [place] % (Auto) Eos % (Auto) Baso % (Auto) Lymph # (Auto) [place] # (Auto) Eos # (Auto) Baso # (Auto) Abs Immat Gran (auto) Absolute Neuts (auto) Absolute Nucleated RBC Band Neutrophils % Nucleated RBC % Platelet Estimate Poikilocytosis Anisocytosis Schistocytes PT INR APTT Puncture Site ABG pH ABG pCO2 ABG pO2 ABG PO2/FiO2 Ratio ABG HCO3 ABG O2 Saturation ABG O2 Content ABG Base Excess A-a Gradient Oxyhemoglobin Carboxyhemoglobin Methemoglobin Reduced Hemoglobin Total Hemoglobin O2 Delivery Device O2 Liters/Min Minute Volume Vent Rate Vent Mode FiO2 Tidal Volume PEEP Peak Inspir Pressure Pressure Support Sodium Potassium Chloride Carbon Dioxide Anion Gap BUN Creatinine Estim Creat Clear Calc Estimated GFR Glucose POC Capillary Glucose 173 H 151 H 136 H Lactic Acid Calcium Phosphorus Magnesium Total Bilirubin AST ALT Alkaline Phosphatase Total Protein Albumin 09/07/25 09/07/25 09/07/25 14:00 16:18 20:16 WBC RBC Hgb Hct MCV MCH MCHC RDW Plt Count MPV Immature Gran % (Auto) Neut % (Auto) Lymph % (Auto) [place] % (Auto) Eos % (Auto) Baso % (Auto) Lymph # (Auto) [place] # (Auto) Eos # (Auto) Baso # (Auto) Abs Immat Gran (auto) Absolute Neuts (auto) Absolute Nucleated RBC Band Neutrophils % Nucleated RBC % Platelet Estimate Poikilocytosis Anisocytosis Schistocytes PT INR APTT Puncture Site ABG pH ABG pCO2 ABG pO2 ABG PO2/FiO2 Ratio ABG HCO3 ABG O2 Saturation ABG O2 Content ABG Base Excess A-a Gradient Oxyhemoglobin Carboxyhemoglobin Methemoglobin Reduced Hemoglobin Total Hemoglobin O2 Delivery Device O2 Liters/Min Minute Volume Vent Rate Vent Mode FiO2 Tidal Volume PEEP Peak Inspir Pressure Pressure Support Sodium 136 L Potassium 3.8 Chloride 109 H Carbon Dioxide 30 Anion Gap -3 L BUN 21 H Creatinine 0.63 L Estim Creat Clear Calc 84 Estimated GFR > 60 Glucose 150 H POC Capillary Glucose 145 H 159 H Lactic Acid Calcium 7.7 L Phosphorus Magnesium 2.0 Total Bilirubin AST ALT Alkaline Phosphatase Total Protein Albumin
[2025-09-08] VITALS (44 sets, daily range): BP systolic 87–133; BP diastolic 49–109; PULSE 110–141; RESP 13–29; TEMP 36.3–37.1; O2SAT 93–100
[2025-09-08] MEDS: IPRATROPIUM 0.5 MG/ALBUTEROL SULFATE 2.5 MG (BASE) AMPUL.NEB 3 ML INHALATION ×4 (01:53→20:05)
[2025-09-08] MEDS: MEROPENEM 1 GM in SODIUM CHLORIDE 0.9% IV 100 ML 200 ML IVPB ×3 (02:34→20:08)
[2025-09-08] MEDS: dexmedeTOMIDine 400 MCG/100 ML 400 MCG/100 ML BAG 8.01 MCG IV CONT (03:38)
[2025-09-08] MEDS: CENTRAL LINE FLUSH 10 ML IV PUSH ×3 (04:15→20:20)
[2025-09-08 04:19] LABS: Hematocrit 29.1 % (42.0-52.0); Hemoglobin 9.1 g/dL (14.0-18.0); Immature Granulocyte Percent A 4.0 % (0-0.5); Lymphocytes Absolute Auto 0.53 K/mm3 (0.9-3.2); Mean Corpuscular HGB Conc 31.3 g/dl (32-36); Mean Corpuscular Hemoglobin 30.1 pg (26-34); Mean Corpuscular Volume 96.4 fl (80-100); Nucleated Red Blood Cells Absolute Auto 0.020 K/mm3 (0.0-0.012); Nucleated Red Blood Cells Perc 0.1 % (0.0-0.2); Platelet Count Result 133 k/mm3 (150-375); Red Blood Count 3.02 M/mm3 (4.6-6.20); White Blood Count 19.4 K/mm3 (4.5-10.0)
[2025-09-08 04:29] LABS: Alanine Aminotransferase 27 U/L (6-50); Albumin Level 2.5 g/dL (3.5-5.1); Alkaline Phosphatase 153 U/L (38-126); Anion Gap 0 mmol/L (4-12); Aspartate Amino Transferase 96 U/L (17-59); Bilirubin,Total 0.8 mg/dL (0.2-1.3); Blood Urea Nitrogen 21 mg/dL (9-20); Calcium 7.6 mg/dL (8.4-10.2); Carbon Dioxide 32 mmol/L (22-30); Chloride 109 mmol/L (98-107); Estimated CRCL calculation 79 ml/min; Estimated Glomerular Filt Rate > 60; Glucose 163 mg/dL (65-110); Magnesium 2.0 mg/dL (1.6-2.3); Potassium 3.9 mmol/L (3.4-5.0); Sodium 141 mmol/L (137-145); Total Protein 4.5 g/dL (6.3-8.2)
[2025-09-08 04:47] LABS: Alveolar/Arterial O2 Gradient 56.5 mmHg; Carboxyhemoglobin 0.5 % THb (0-2.0); Fractional Inspired Oxygen 25 %; HCO3 ABG 27.7 mEq/l (22.0-26.0); Methemoglobin ABG 0.3 %THb (0-1.5); Oxygen Content ABG 13.6 %vol (16.0-22.0); Oxygen Saturation ABG 96.6 % (95.0-100.0); PCO2 ABG 36.3 mmHg (35.0-45.0); PO2 ABG 78.6 mmHg (80.0-100.0); PO2 FiO2 Ratio Arterial Blood 3.14 %; Reduced Hemoglobin 4.3 %THb (0-5.0)
[2025-09-08 04:49] LABS: Modified Allen's Test Pass; Site Drawn RIGHT BRACHIAL
[2025-09-08 04:50] LABS: Arterial Blood Gas Tidal Volume 380 ml; Arterial Blood Gas Ventilator rate 16 /MIN
[2025-09-08 04:59] LABS: Anisocytosis 1+; Hypochromasia 1+; Microcytosis 1+ (NORMAL); Schistocytes None Seen
[2025-09-08] MEDS: VANCOMYCIN 1,250 MG/NS 250 ML 1,250 MG/250 ML BAG 166.6 MG IVPB (06:07)
[2025-09-08] MEDS: FUROSEMIDE INJ 100 MG/10 ML VIAL 80 MG IV PUSH (07:51)
[2025-09-08] MEDS: POTASSIUM CHLORIDE 20 MEQ PACKET (FOR LIQUID) 40 MEQ FEED TUBE (07:55)
[2025-09-08] MEDS: ALBUMIN HUMAN 25% 25 GM/100 ML 100 ML IVPB (07:55)
[2025-09-08 08:08] LABS: Chlamydia pneumoniae, PCR Negative (Negative)
[2025-09-08] MEDS: CHOLECALCIFEROL (VITAMIN D3) 125 MCG (5,000 UNITS) TABLET PO (08:09)
[2025-09-08] MEDS: FENOFIBRATE 145 MG TABLET PO (08:09)
[2025-09-08] MEDS: MINERAL OIL/WHITE PETROLATUM OINTMENT 1 APPLIC EACH EYE (08:09)
[2025-09-08] MEDS: LORATADINE 10 MG TABLET PO (08:09)
[2025-09-08] MEDS: PANTOPRAZOLE SODIUM IV 40 MG VIAL IV PUSH ×2 (08:09→20:20)
[2025-09-08] MEDS: TAMSULOSIN HCL 0.4 MG CAPSULE PO (08:09)
[2025-09-08] MEDS: CALCIUM GLUC 2,000 MG/NS 100ML 2,000 MG/100 ML BAG 100 MG IVPB (08:13)
--- NOTE | 2025-09-08 09:21 | P.PNINT_ITS ---
Progress Note: A&P Assessment and Plan (1) Septic shock: Code(s): A41.9 - Sepsis, unspecified organism; R65.21 - Severe sepsis with septic shock Status: Acute Assessment and Plan: 09/03/2025: Patient was transferred from medical floor to ICU where he was intubated, found to be hypotensive, received albumin -and IV fluid bolus, started on Levophed -patient does have a port, will use that for the pressors -on low-dose Levophed -patient was on azithromycin, cefepime and vancomycin per Infectious Disease -09/03: Switched antibiotics to meropenem, vancomycin and micafungin - (completed a course of azithromycin) -appreciate ID following the patient along with the recommendations -micafungin for balanitis per Infectious Disease -08/30: Blood cultures negative x2 -09/03: Blood cultures obtained and pending 09/04: Respiratory cultures from BAL pending (2) Acute respiratory failure: Code(s): J96.00 - Acute respiratory failure, unspecified whether with hypoxia or hypercapnia Status: Acute Assessment and Plan: Respiratory failure likely multifactorial secondary to pneumonia and pulmonary edema with underlying lung disease and lobectomy Patient is transferred from medical floor after being found hypoxic, hypotensive and less responsive/altered mental status -increasing O2 requirements on Airvo -09/03: Patient was intubated by ER physician in the ICU -currently on CMV mode of ventilation, peep of 5, 25% FiO2. -ABGs, chest x-ray and CT chest reviewed. -continue bronchodilator -09/03: Status post right thoracentesis this by ER physician, drained 600 mL yellow sticky fluid -09/04: Bronchoscopy performed by pulmonology, BAL cultures have been obtained and pending -appreciate pulmonology evaluation and recommendation 09/06: Place patient on SBT, tolerating well, will evaluate for extubation, on low-dose Precedex at this time 09/07 will give Lasix IV today and attempted weaning trial. 09/08 -chest x-ray ABG reviewed continue Lasix and will attempt PSV weaning trial again today 09/03/2025: CT chest with contrast -IMPRESSION: 1. Significant decrease in lung volumes with prominent dependent atelectasis including partial collapse of the bilateral lower lobes. Superimposed pneumonia not excludable. 2. No significant change in small left and moderate-sized right pleural effusions. 3. Moderate amount of ascites in the upper abdomen. 4. Scattered sclerotic bone lesions consistent with known metastatic prostate cancer and with chronic pathologic fracture at T10. 09/02: IMPRESSION: Moderate loculated right pleural effusion and small left pleural effusion. Patchy infiltrates are present bilaterally. There is mediastinal lymphadenopathy. Sclerotic changes within the T9 vertebral body suggestive of metastasis. (3) Pleural effusion: Code(s): J90 - Pleural effusion, not elsewhere classified Status: Acute Assessment and Plan: 09/03: Thoracentesis perform a ER physician early hours with a removal of 600 mL in yellow sticky fluid -according to Light's criteria pleural protein/serum protein ratio<0.5, pleural LDH/serum LDH < 0.6. The effusion is likely a transudate -fluid gram stain did not show any organism, cultures are still pending -continue antibiotics as above (4) Pneumonia: Code(s): J18.9 - Pneumonia, unspecified organism Status: Acute Assessment and Plan: Consolidation noted on CT scan of the chest -continue antibiotics as above -appreciate pulmonology evaluation and recommendations, -bronchoscopy done on 09/04 since patient is immunocompromised due to chemotherapy (5) Encephalopathy: Code(s): G93.40 - Encephalopathy, unspecified Status: Acute Assessment and Plan: Encephalopathy could be multifactorial, septic shock, hypotension, hypoxia -currently intubated and on Precedex -will maintain Euthermia, adequate blood pressures, adequate oxygenation -upon sedation vacation, patient does open his eyes and follows simple commands IMPRESSION: CT HEAD: 1. No acute intracranial findings. CTA NECK: 1. Motion artifact along carotid bulbs. Stenosis or even dissection not excluded. Recommend carotid ultrasound. CTA HEAD: 1. No large vessel arterial occlusive disease or other acute findings. 2. No aneurysms. (6) Coagulopathy: Code(s): D68.9 - Coagulation defect, unspecified Status: Acute Assessment and Plan: PTT elevated, continue to monitor, patient not on any anticoagulation at this time -improving (7) Anemia: Code(s): D64.9 - Anemia, unspecified Status: Acute Assessment and Plan: 09/03: Hemoglobin dropped to 6.9 this morning from 7.5. Transfused 1 unit of packed RBCs -hemoglobin has been stable and gradually improving -continue to monitor (8) Protein calorie malnutrition: Code(s): E46 - Unspecified protein-calorie malnutrition Status: Acute Assessment and Plan: Protein calorie malnutrition, BMI of 23.6 -likely moderate protein calorie malnutrition -09/04: Tolerating tube feeds (9) Metastatic malignant neoplasm to prostate: Code(s): C79.82 - Secondary malignant neoplasm of genital organs Status: Acute Assessment and Plan: Patient has metastatic prostate cancer, being treated by Dr. Walsh with palliative chemotherapy (10) Candidal balano-posthitis: Code(s): B37.49 - Other urogenital candidiasis Status: Acute Assessment and Plan: Continue micafungin per Infectious Disease (11) COPD (chronic obstructive pulmonary disease): Code(s): J44.9 - Chronic obstructive pulmonary disease, unspecified Status: Acute Assessment and Plan: Continue DuoNebs, on mechanical ventilation Plan DVT prophylaxis: SCDs, Lovenox Stress ulcer prophylaxis: Protonix IV q.12 hours Nutrition: Currently tolerating tube feed Code Status: DNR Spoke to and updated patient's son at bedside answered all his questions. Critical Care Time Spent: 30 minutes Due to a high probability of clinically significant, life threatening deterioration, the patient required my highest level of preparedness to intervene emergently and I personally spent this critical care time directly and personally managing the patient. This critical care time included obtaining a h istory; examining the patient; pulse oximetry; ordering and review of studies; arranging urgent treatment with development of a management plan; evaluation of patient's response to treatment; frequent reassessment; and discussions with other providers. It was exclusive of separately billable procedures and treating other patients and teaching time. Please see Assessment and Plan section and the rest of the note for further information on patient assessment and treatment This dictation may have been done utilizing a voice recognition system. Attempts have been made to correct errors. However, there may be uncorrected grammatical, spelling, and recognitions errors present. Subjective Date/time seen: 09/08/25 Continues to be on mechanical ventilation with FiO2 25% Overnight events reviewed. Afebrile Continues to be on low-dose Levophed Continues to be sedated with Precedex Good urine output in response to Lasix Tolerating tube feed and is currently at 50 mL/hour Vitals acceptable Interval history: Reason for consult: Acute respiratory failure, septic shock, encephalopathy, recent chemotherapy, neutropenia, fungal balanitis Review of Systems Review of Systems: ROS unobtainable: Yes unobtainable due to endotracheal tube, unobtainable due to medical condition and unobtainable due to mental status Exam Narrative: General: Ill-appearing elderly patient, intubated HEENT:? Pupils equal and reactive bilaterally. Sclera is clear, eyes are sunken, ETT in place Neck:? Supple Respiratory:? Coarse breath sounds bilaterally, rales auscultated bilaterally, no wheezing, adequate air entry otherwise Cardiac:? S1-S2 is normal, regular rate and rhythm Abdomen: Soft, nontender, non distended, hypoactive bowel sounds Extremities:? Bilateral pitting edema present Neuro:? Intubated, on Precedex infusion, opens his eyes and follows simple commands Skin:? Skin tears noted on the feet bilaterally, Psych:? Unable to assess at this time Objective Data Vital Signs Vital Signs: Vital Signs - 24 hr 09/07/25 09:24 09/07/25 10:00 09/07/25 10:00 Temperature Pulse Rate 103 H 124 H 111 H Respiratory Rate 17 Blood Pressure 125/76 Pulse Oximetry Oxygen Delivery Fraction of Inspired Oxygen 09/07/25 10:00 09/07/25 10:00 09/07/25 10:25 Temperature 36.4 C Pulse Rate 115 H 124 H 112 H Respiratory Rate 17 15 Blood Pressure 104/66 Pulse Oximetry 99 99 Oxygen Delivery Mechanical Ventilation Fraction of Inspired Oxygen 09/07/25 11:00 09/07/25 11:00 09/07/25 11:00 Temperature 36.4 C Pulse Rate 111 H 115 H 112 H Respiratory Rate 15 15 Blood Pressure 95/61 L 95/61 L 95/61 L Pulse Oximetry 100 99 Oxygen Delivery Fraction of Inspired Oxygen 09/07/25 11:53 09/07/25 11:55 09/07/25 12:00 Temperature Pulse Rate 116 H 114 H 116 H Respiratory Rate 14 15 Blood Pressure 109/66 Pulse Oximetry 100 100 Oxygen Delivery Mechanical Ventilation Fraction of Inspired Oxygen 09/07/25 12:00 09/07/25 12:00 09/07/25 12:00 Temperature Pulse Rate 128 H 128 H Respiratory Rate 18 Blood Pressure Pulse Oximetry 99 Oxygen Delivery Mechanical Ventilation Fraction of Inspired Oxygen 09/07/25 12:01 09/07/25 13:00 09/07/25 13:00 Temperature 36.4 C Pulse Rate 113 H 115 H 109 H Respiratory Rate 16 Blood Pressure 95/54 L 124/73 92/54 L Pulse Oximetry 100 Oxygen Delivery Fraction of Inspired Oxygen 09/07/25 13:00 09/07/25 13:34 09/07/25 13:34 Temperature Pulse Rate 109 H 110 H 110 H Respiratory Rate 15 15 Blood Pressure Pulse Oximetry 100 Oxygen Delivery Mechanical Ventilation Fraction of Inspired Oxygen 25 09/07/25 13:41 09/07/25 13:53 09/07/25 14:00 Temperature Pulse Rate 108 H 119 H 113 H Respiratory Rate 13 16 Blood Pressure 82/49 L 90/49 L Pulse Oximetry 100 Oxygen Delivery Fraction of Inspired Oxygen 09/07/25 14:00 09/07/25 14:00 09/07/25 14:28 Temperature Pulse Rate 113 H 121 H 119 H Respiratory Rate 14 Blood Pressure Pulse Oximetry 100 Oxygen Delivery Mechanical Ventilation Fraction of Inspired Oxygen 25 09/07/25 15:00 09/07/25 15:00 09/07/25 15:00 Temperature 36.4 C L Pulse Rate 122 H 122 H 122 H Respiratory Rate 16 15 Blood Pressure 107/53 L 107/53 L Pulse Oximetry 100 Oxygen Delivery Fraction of Inspired Oxygen 09/07/25 16:00 09/07/25 16:00 09/07/25 16:00 Temperature Pulse Rate 119 H 122 H 124 H Respiratory Rate 15 17 Blood Pressure 88/57 L 96/61 L Pulse Oximetry 100 Oxygen Delivery Fraction of Inspired Oxygen 09/07/25 16:00 09/07/25 16:00 09/07/25 16:00 Temperature Pulse Rate 119 H 119 H Respiratory Rate 18 Blood Pressure Pulse Oximetry 100 Oxygen Delivery Mechanical Ventilation Fraction of Inspired Oxygen 25 25 09/07/25 17:00 09/07/25 17:00 09/07/25 17:00 Temperature Pulse Rate 123 H 120 H 120 H Respiratory Rate 18 15 Blood Pressure 110/62 Pulse Oximetry 100 100 Oxygen Delivery Mechanical Ventilation Fraction of Inspired Oxygen 25 09/07/25 17:07 09/07/25 17:07 09/07/25 18:00 Temperature Pulse Rate 120 H 120 H 122 H Respiratory Rate Blood Pressure 86/77 L 86/77 L Pulse Oximetry Oxygen Delivery Fraction of Inspired Oxygen 09/07/25 18:00 09/07/25 18:00 09/07/25 18:00 Temperature 37.6 C Pulse Rate 114 H 128 H Respiratory Rate 18 15 Blood Pressure 104/53 L Pulse Oximetry 99 Oxygen Delivery Fraction of Inspired Oxygen 09/07/25 18:00 09/07/25 19:00 09/07/25 19:37 Temperature 36.4 C Pulse Rate 128 H 134 H 128 H Respiratory Rate 18 19 Blood Pressure 101/64 115/65 Pulse Oximetry 99 Oxygen Delivery Fraction of Inspired Oxygen 09/07/25 19:39 09/07/25 19:45 09/07/25 20:00 Temperature Pulse Rate 129 H 112 H 125 H Respiratory Rate 17 Blood Pressure 94/63 L Pulse Oximetry 100 Oxygen Delivery Mechanical Ventilation Fraction of Inspired Oxygen 25 09/07/25 20:00 09/07/25 20:00 09/07/25 20:00 Temperature Pulse Rate 125 H 128 H Respiratory Rate 16 20 Blood Pressure 116/65 Pulse Oximetry 20 L 99 Oxygen Delivery Mechanical Ventilation Fraction of Inspired Oxygen 25 09/07/25 20:00 09/07/25 20:00 09/07/25 21:00 Temperature 36.4 C Pulse Rate 127 H 80 Respiratory Rate 16 Blood Pressure 109/64 Pulse Oximetry 99 Oxygen Delivery Fraction of Inspired Oxygen 09/07/25 22:00 09/07/25 22:00 09/07/25 22:00 Temperature Pulse Rate 118 H 118 H 118 H Respiratory Rate 17 Blood Pressure 112/61 Pulse Oximetry Oxygen Delivery Fraction of Inspired Oxygen 09/07/25 22:00 09/07/25 22:45 09/07/25 22:47 Temperature 36.6 C Pulse Rate 118 H 131 H 135 H Respiratory Rate 17 Blood Pressure 112/61 130/75 Pulse Oximetry 98 99 Oxygen Delivery Mechanical Ventilation Fraction of Inspired Oxygen 09/07/25 23:00 09/07/25 23:41 09/08/25 00:00 Temperature Pulse Rate 136 H 133 H Respiratory Rate 20 Blood Pressure 123/69 136/100 H Pulse Oximetry 99 98 Oxygen Delivery Mechanical Ventilation Fraction of Inspired Oxygen 09/08/25 00:00 09/08/25 00:00 09/08/25 00:00 Temperature Pulse Rate 134 H 134 H Respiratory Rate 21 H Blood Pressure 120/65 Pulse Oximetry Oxygen Delivery Fraction of Inspired Oxygen 25 09/08/25 00:00 09/08/25 00:00 09/08/25 01:00 Temperature 36.7 C Pulse Rate 134 H 129 H 126 H Respiratory Rate 21 H 22 H Blood Pressure 120/65 118/76 Pulse Oximetry 99 98 Oxygen Delivery Fraction of Inspired Oxygen 09/08/25 01:50 09/08/25 01:55 09/08/25 02:00 Temperature Pulse Rate 127 H 120 H 128 H Respiratory Rate 22 H 22 H Blood Pressure Pulse Oximetry 99 Oxygen Delivery Mechanical Ventilation Fraction of Inspired Oxygen 25 09/08/25 02:00 09/08/25 02:00 09/08/25 02:00 Temperature 36.8 C Pulse Rate 128 H 128 H 128 H Respiratory Rate 22 H Blood Pressure 132/81 132/81 Pulse Oximetry 99 Oxygen Delivery Fraction of Inspired Oxygen 09/08/25 03:00 09/08/25 03:02 09/08/25 03:37 Temperature Pulse Rate 121 H 136 H 126 H Respiratory Rate 16 21 H 16 Blood Pressure 123/95 H Pulse Oximetry 100 Oxygen Delivery Fraction of Inspired Oxygen 09/08/25 03:38 09/08/25 04:00 09/08/25 04:00 Temperature Pulse Rate 126 H 126 H 126 H Respiratory Rate 16 17 Blood Pressure 103/57 L Pulse Oximetry Oxygen Delivery Fraction of Inspired Oxygen 09/08/25 04:00 09/08/25 04:00 09/08/25 04:00 Temperature 36.6 C Pulse Rate 126 H Respiratory Rate 17 Blood Pressure 103/57 L Pulse Oximetry 100 100 Oxygen Delivery Mechanical Ventilation Fraction of Inspired Oxygen 25 25 09/08/25 04:00 09/08/25 04:32 09/08/25 05:00 Temperature Pulse Rate 124 H 130 H 125 H Respiratory Rate 17 Blood Pressure 115/64 Pulse Oximetry 99 100 Oxygen Delivery Mechanical Ventilation Fraction of Inspired Oxygen 09/08/25 06:00 09/08/25 06:00 09/08/25 06:00 Temperature Pulse Rate 118 H 118 H 118 H Respiratory Rate 16 16 Blood Pressure 98/57 L Pulse Oximetry 100 Oxygen Delivery Fraction of Inspired Oxygen 09/08/25 06:00 09/08/25 07:00 09/08/25 07:00 Temperature Pulse Rate 118 H 121 H 121 H Respiratory Rate 18 18 Blood Pressure 98/57 L 113/63 Pulse Oximetry 100 Oxygen Delivery Fraction of Inspired Oxygen 09/08/25 07:27 09/08/25 08:08 09/08/25 08:09 Temperature Pulse Rate 119 H 119 H 119 H Respiratory Rate 22 H 18 Blood Pressure Pulse Oximetry 99 Oxygen Delivery Mechanical Ventilation Fraction of Inspired Oxygen 25 09/08/25 08:14 09/08/25 08:15 Temperature Pulse Rate 110 H Respiratory Rate 18 Blood Pressure Pulse Oximetry Oxygen Delivery Mechanical Ventilation Fraction of Inspired Oxygen 25 Intake/Output Intake/Output: Intake & Output 09/05/25 09/06/25 09/07/25 09/08/25 23:59 23:59 23:59 23:59 Intake Total 1981.1333 1693.2 1149.5 818.3 Output Total 525 1200 2025 1800 Balance 1456.1333 493.2 -875.5 -981.7 Meds/Results Medications: Active Medications Generic Name Dose Route Start Last Admin Trade Name Freq PRN Reason Stop Dose Admin Acetaminophen 650 mg 08/30/25 10:58 Acetaminophen 325 Mg Tablet PO Q4H PRN Mild Pain (1-3) or Fever Albuterol/Ipratropium 3 ml 09/01/25 08:55 09/08/25 08:04 Ipratropium 0.5 Mg/Albuterol Sulfate 2.5 Mg (Base) Ampul.Neb 3 Ml INHALATION 3 ml Q6HRT DARIEN Administration Lidocaine HCl 30 ml/ Al Hydrox 0 ml 08/30/25 17:00 09/03/25 07:00 /Mg Hydrox/Simethicone 30 ml/ PO Not Given Diphenhydramine HCl 75 mg Q4HWA DARIEN On Hold: 09/03/25 07:00 Dextrose 12.5 gm 09/03/25 10:06 Dextrose 50% 25 Gm/50 Ml Syringe IV PUSH PRN PRN Hypoglycemia Protocol Fenofibrate 145 mg 09/01/25 09:00 09/08/25 08:09 Fenofibrate 145 Mg Tablet PO 145 mg QAM DARIEN Administration Glucagon 1 mg 09/03/25 10:06 Glucagon For Inj 1 Mg Vial IM PRN PRN Hypoglycemia Protocol Glucose 15 gm 09/03/25 10:06 Glucose Oral Gel 15 Gm Of Glucse In 37.5 Gm Tube PO PRN PRN Hypoglycemia Protocol Heparin Sodium (Beef Lung) 50 units 09/03/25 09:00 09/08/25 08:09 Heparin Flush 50 Units/5 Ml Syringe IV PUSH 50 units QAM DARIEN Administration Heparin Sodium (Beef Lung) 50 units 09/03/25 07:03 Heparin Flush 50 Units/5 Ml Syringe IV PUSH PRN PRN after intermittent infusion Heparin Sodium (Beef Lung) 50 units 09/03/25 07:03 Heparin Flush 50 Units/5 Ml Syringe IV PUSH PRN PRN after blood draws Heparin Sodium (Porcine) 500 units 09/03/25 07:03 Heparin Sodium Lock Flush 500 Units/5 Ml Syringe IV PUSH PRN PRN see comments below Dextrose 1,000 mls @ 100 mls/hr 09/03/25 10:06 Dextrose 5% 1,000 Ml IVPB PRN PRN Hypoglycemia Protocol Meropenem 1 gm/ Sodium 100 mls @ 200 mls/hr 09/03/25 11:00 09/08/25 03:04 Chloride IVPB Infused Q8H DARIEN Infusion Micafungin Sodium 100 mg/ 100 mls @ 100 mls/hr 09/03/25 14:00 09/07/25 13:21 Sodium Chloride IVPB 100 mls/hr Q24H DARIEN Administration Dexmedetomidine HCl 400 mcg in 100 mls @ 4.005 mls/hr 09/05/25 13:40 09/08/25 07:27 Precedex 400 Mcg/100 Ml IV CONT 0.2 mcg/kg/hr .[id number] DARIEN 4.01 mls/hr Protocol Titration 0.2 MCG/KG/HR Norepinephrine Bitartrate 8 mg in 250 mls @ 0 mls/hr 09/06/25 15:20 09/08/25 06:00 Levophed 8 Mg/D5w 250 Ml IV CONT 0 mcg/min .Q0M DARIEN 0 mls/hr Protocol Titration 0 MCG/MIN Vancomycin HCl 1,250 mg in 250 mls @ 166.667 mls/hr 09/06/25 19:00 09/08/25 06:07 Vancomycin 1,250 Mg/Ns 250 Ml IVPB 166.6 mls/hr Q18H DARIEN Administration Albumin Human 100 mls @ 60 mls/hr 09/08/25 07:44 09/08/25 07:55 Albutein IVPB 09/08/25 09:23 60 mls/hr ONCE ONE Administration Insulin Aspart 2 - 5 units 09/03/25 10:10 09/08/25 08:12 Insulin Aspart (*Bkc) 100 Units/Ml SUB-Q Not Given Q4HR DARIEN Protocol Lidocaine HCl 1 applic 08/30/25 20:34 08/31/25 09:34 Lidocaine 4% Soln 50 Ml Btl TOPICAL 1 applic PRN PRN Administration Pain Loratadine 10 mg 08/31/25 21:00 09/08/25 08:09 Loratadine 10 Mg Tablet PO 10 mg QAM DARIEN Administration Multi-Ingred Cream/Lotion/Oil/Oint 1 applic 09/03/25 09:00 09/08/25 08:09 Mineral Oil/White Petrolatum Ointment EACH EYE 1 applic Q12HR DARIEN Administration Pantoprazole Sodium 40 mg 09/03/25 21:00 09/08/25 08:09 Pantoprazole Sodium Iv 40 Mg Vial IV PUSH 40 mg Q12HR DARIEN Administration Sodium Chloride 10 ml 09/03/25 14:00 09/08/25 04:15 Central Line Flush IV PUSH 10 ml Q8HR DARIEN Administration Tamsulosin HCl 0.4 mg 09/01/25 09:00 09/08/25 08:09 Tamsulosin Hcl 0.4 Mg Capsule PO 0.4 mg DAILY DARIEN Administration Vitamin D 125 mcg 09/01/25 09:00 09/08/25 08:09 Cholecalciferol (Vitamin D3) 125 Mcg (5,000 Units) Tablet PO 125 mcg DAILY DARIEN Administration Radiology Results: ITS Impressions Head CT 09/03/25 06:23 IMPRESSION: 1. No acute intracranial findings. Head/Neck CTA 09/03/25 06:30 IMPRESSION: CT HEAD: 1. No acute intracranial findings. CTA NECK: 1. Motion artifact along carotid bulbs. Stenosis or even dissection not excluded. Recommend carotid ultrasound. CTA HEAD: 1. No large vessel arterial occlusive disease or other acute findings. 2. No aneurysms. Chest CT 09/03/25 07:26 IMPRESSION: 1. Significant decrease in lung volumes with prominent dependent atelectasis including partial collapse of the bilateral lower lobes. Superimposed pneumonia not excludable. 2. No significant change in small left and moderate-sized right pleural effusions. 3. Moderate amount of ascites in the upper abdomen. 4. Scattered sclerotic bone lesions consistent with known metastatic prostate cancer and with chronic pathologic fracture at T10. Carotid Doppler Study 09/03/25 17:25 IMPRESSION: 1. >=70% (but less than near occlusion) stenosis in the right internal carotid artery. 2. >=70% (but less than near occlusion) stenosis in the left internal carotid artery. 3. The degree of stenosis indicated by the increased velocities is greater than would be expected given the amount of calcified atherosclerotic plaque evident on the prior CT angiogram. This suggests that the lower density linear filling defects at the bilateral carotid bulbs seen on the prior CT angiogram are not artifactual and likely to represent small dissection flaps. Abdomen X-Ray 09/04/25 07:07 IMPRESSION: 1: NG tube tip in the stomach. 2: Bibasilar airspace disease may represent edema or pneumonia. Chest X-Ray 09/08/25 07:34 Impression: 1: Hazy diffuse bilateral airspace disease is stable. Differential diagnosis includes edema and pneumonia. Labs Labs: Laboratory Results - last 24 hr 09/04/25 09/07/25 09/07/25 10:05 12:09 14:00 WBC RBC Hgb Hct MCV MCH MCHC RDW Plt Count MPV Immature Gran % (Auto) Neut % (Auto) Lymph % (Auto) Placer % (Auto) Eos % (Auto) Baso % (Auto) Lymph # (Auto) Placer # (Auto) Eos # (Auto) Baso # (Auto) Abs Immat Gran (auto) Absolute Neuts (auto) Absolute Nucleated RBC Band Neutrophils % Nucleated RBC % Platelet Estimate Hypochromasia Anisocytosis Microcytosis Schistocytes Puncture Site ABG pH ABG pCO2 ABG pO2 ABG PO2/FiO2 Ratio ABG HCO3 ABG O2 Saturation ABG O2 Content ABG Base Excess A-a Gradient Oxyhemoglobin Carboxyhemoglobin Methemoglobin Reduced Hemoglobin Total Hemoglobin O2 Delivery Device O2 Liters/Min Minute Volume Vent Rate Vent Mode FiO2 Tidal Volume PEEP Peak Inspir Pressure Pressure Support Sodium 136 L Potassium 3.8 Chloride 109 H Carbon Dioxide 30 Anion Gap -3 L BUN 21 H Creatinine 0.63 L Estim Creat Clear Calc 84 Estimated GFR > 60 Glucose 150 H POC Capillary Glucose 136 H Calcium 7.7 L Phosphorus Magnesium 2.0 Total Bilirubin AST ALT Alkaline Phosphatase Total Protein Albumin Vancomycin Trough C. pneumoniae DNA (PCR) Negative 09/07/25 09/07/25 09/08/25 16:18 20:16 00:20 WBC RBC Hgb Hct MCV MCH MCHC RDW Plt Count MPV Immature Gran % (Auto) Neut % (Auto) Lymph % (Auto) Placer % (Auto) Eos % (Auto) Baso % (Auto) Lymph # (Auto) Placer # (Auto) Eos # (Auto) Baso # (Auto) Abs Immat Gran (auto) Absolute Neuts (auto) Absolute Nucleated RBC Band Neutrophils % Nucleated RBC % Platelet Estimate Hypochromasia Anisocytosis Microcytosis Schistocytes Puncture Site ABG pH ABG pCO2 ABG pO2 ABG PO2/FiO2 Ratio ABG HCO3 ABG O2 Saturation ABG O2 Content ABG Base Excess A-a Gradient Oxyhemoglobin Carboxyhemoglobin Methemoglobin Reduced Hemoglobin Total Hemoglobin O2 Delivery Device O2 Liters/Min Minute Volume Vent Rate Vent Mode FiO2 Tidal Volume PEEP Peak Inspir Pressure Pressure Support Sodium Potassium Chloride Carbon Dioxide Anion Gap BUN Creatinine Estim Creat Clear Calc Estimated GFR Glucose POC Capillary Glucose 145 H 159 H 177 H Calcium Phosphorus Magnesium Total Bilirubin AST ALT Alkaline Phosphatase Total Protein Albumin Vancomycin Trough C. pneumoniae DNA (PCR) 09/08/25 09/08/25 09/08/25 04:01 04:08 04:31 WBC 19.4 H RBC 3.02 L Hgb 9.1 L Hct 29.1 L MCV 96.4 MCH 30.1 MCHC 31.3 L RDW 20.4 H Plt Count 133 L MPV 11.0 H Immature Gran % (Auto) 4.0 H Neut % (Auto) 81.9 H Lymph % (Auto) 2.7 L Placer % (Auto) 11.0 H Eos % (Auto) 0.0 Baso % (Auto) 0.4 Lymph # (Auto) 0.53 L Placer # (Auto) 2.1 H Eos # (Auto) 0.0 Baso # (Auto) 0.1 Abs Immat Gran (auto) 0.78 H Absolute Neuts (auto) 15.8 H Absolute Nucleated RBC 0.020 H Band Neutrophils % Not Reportable Nucleated RBC % 0.1 Platelet Estimate Adequate Hypochromasia 1+ Anisocytosis 1+ Microcytosis 1+ Schistocytes None seen Puncture Site Right brachial ABG pH 7.501 H ABG pCO2 36.3 ABG pO2 78.6 L ABG PO2/FiO2 Ratio 3.14 ABG HCO3 27.7 H ABG O2 Saturation 96.6 ABG O2 Content 13.6 L ABG Base Excess 4.4 A-a Gradient 56.5 Oxyhemoglobin 94.9 Carboxyhemoglobin 0.5 Methemoglobin 0.3 Reduced Hemoglobin 4.3 Total Hemoglobin 10.1 L O2 Delivery Device Ventilator O2 Liters/Min Not Reportable Minute Volume Not Reportable Vent Rate 16 Vent Mode Cmv FiO2 25 Tidal Volume 380 PEEP 5 Peak Inspir Pressure Not Reportable Pressure Support Not Reportable Sodium 141 Potassium 3.9 Chloride 109 H Carbon Dioxide 32 H Anion Gap 0 L BUN 21 H Creatinine 0.67 L Estim Creat Clear Calc 79 Estimated GFR > 60 Glucose 163 H POC Capillary Glucose 173 H Calcium 7.6 L Phosphorus 2.5 Magnesium 2.0 Total Bilirubin 0.8 AST 96 H ALT 27 Alkaline Phosphatase 153 H Total Protein 4.5 L Albumin 2.5 L Vancomycin Trough 17.5 C. pneumoniae DNA (PCR) 09/08/25 08:11 WBC RBC Hgb Hct MCV MCH MCHC RDW Plt Count MPV Immature Gran % (Auto) Neut % (Auto) Lymph % (Auto) Placer % (Auto) Eos % (Auto) Baso % (Auto) Lymph # (Auto) Placer # (Auto) Eos # (Auto) Baso # (Auto) Abs Immat Gran (auto) Absolute Neuts (auto) Absolute Nucleated RBC Band Neutrophils % Nucleated RBC % Platelet Estimate Hypochromasia Anisocytosis Microcytosis Schistocytes Puncture Site ABG pH ABG pCO2 ABG pO2 ABG PO2/FiO2 Ratio ABG HCO3 ABG O2 Saturation ABG O2 Content ABG Base Excess A-a Gradient Oxyhemoglobin Carboxyhemoglobin Methemoglobin Reduced Hemoglobin Total Hemoglobin O2 Delivery Device O2 Liters/Min Minute Volume Vent Rate Vent Mode FiO2 Tidal Volume PEEP Peak Inspir Pressure Pressure Support Sodium Potassium Chloride Carbon Dioxide Anion Gap BUN Creatinine Estim Creat Clear Calc Estimated GFR Glucose POC Capillary Glucose 150 H Calcium Phosphorus Magnesium Total Bilirubin AST ALT Alkaline Phosphatase Total Protein Albumin Vancomycin Trough C. pneumoniae DNA (PCR) Quality VTE Prophylaxis VTE prophylaxis: mechanical ordered
[2025-09-08 10:28] LABS: Alveolar/Arterial O2 Gradient 51.8 mmHg; Fractional Inspired Oxygen 25 %; HCO3 ABG 28.7 mEq/l (22.0-26.0); Oxygen Content ABG 12.9 %vol (16.0-22.0); Oxygen Saturation ABG 97.2 % (95.0-100.0); PCO2 ABG 36.2 mmHg (35.0-45.0); PO2 ABG 83.5 mmHg (80.0-100.0); PO2 FiO2 Ratio Arterial Blood 3.34 %
[2025-09-08 10:32] LABS: Site Drawn RIGHT BRACHIAL
--- NOTE | 2025-09-08 10:34 | P.PNCROSS_ITS ---
Event Note Event Note Event Note: 5/ PSV SBT done for close to 1 hour. RSBI, ABGI and Vitals acceptable except t he patient is slightly tachycardic. Pt awake and following commands while on low-dose Precedex. Will extubate and monitor. NPO for now.
--- NOTE | 2025-09-08 10:34 | PM.EVENT ---
Event Note Event Note Event Note: 5/5 PSV SBT done for close to 1 hour. RSBI, ABGI and Vitals acceptable except the patient is slightly tachycardic. Pt awake and following commands while on low-dose Precedex. Will extubate and monitor. NPO for now.
[2025-09-08 10:35] LABS: Arterial Blood Gas Pressure Support 5 cmH2O
--- NOTE | 2025-09-08 11:27 | PCNFU ---
Nutrition Follow-Up Complete: Moderate protein calorie malnutrition related to inadequate energy intake as evidenced by reduced appetite and intake for greater than 1 month, a significant weight loss of -16% x 6 months, and clinical findings for moderate subcutaneous fat loss (cheeks) and moderate muscle wasting (cheondoism, clavicle). Goal: PO intake 50% or greater We will continue current goal. Pt current nutrition is NPO. Last recorded weight is 79.2 kg. Bowel Motility: Last reported BM 09/08 Labs Reviewed: Glu 163, Alb 2.5, Hgb 9.1, Hct 29.1, BUN 21, Cr 0.67 Meds Noted:Precedex, Vancomycin, ,Vit D Skin: WNL Additional Notes: Patient has been extubated. Tube feedings discontinued. Diet order: NPO at this time. Monitor intake, wt, labs, diet orders every 3 days.
--- NOTE | 2025-09-08 15:30 | PM.IMPN ---
Progress Note: A&P Assessment and Plan (1) Septic shock: Code(s): A41.9 - Sepsis, unspecified organism; R65.21 - Severe sepsis with septic shock Status: Acute Assessment and Plan: 09/03/2025: Patient was transferred from medical floor to ICU where he was intubated, found to be hypotensive, received albumin -and IV fluid bolus, started on Levophed -patient does have a port, will use that for the pressors -wean Levophed to maintain mean arterial MAP > 65 mmHg, SBP > 100 mmHg -patient was on azithromycin, cefepime and vancomycin per Infectious Disease -09/03: Switch cefepime to meropenem, also discussed with Infectious Disease and micafungin was added -currently on meropenem, vancomycin micafungin, (completed a course of azithromycin) -micafungin for balanitis per Infectious Disease -08/30: Blood cultures negative x2 -09/03: Blood cultures obtained and pending (2) Acute respiratory failure: Code(s): J96.00 - Acute respiratory failure, unspecified whether with hypoxia or hypercapnia Status: Acute Assessment and Plan: Patient is transferred from medical floor after being found hypoxic, hypotensive and less responsive/altered mental status -increasing O2 requirements on Airvo -09/03: Patient was intubated by ER physician in the ICU -currently on CMV mode of ventilation, peep of 5, 35% FiO2. -ABGs, chest x-ray and CT chest reviewed. -continue bronchodilator -09/03: Status post right thoracentesis this by ER physician, drained 600 mL yellow sticky fluid 09/03/2025: CT chest with contrast -IMPRESSION: 1. Significant decrease in lung volumes with prominent dependent atelectasis including partial collapse of the bilateral lower lobes. Superimposed pneumonia not excludable. 2. No significant change in small left and moderate-sized right pleural effusions. 3. Moderate amount of ascites in the upper abdomen. 4. Scattered sclerotic bone lesions consistent with known metastatic prostate cancer and with chronic pathologic fracture at T10. 09/02: IMPRESSION: Moderate loculated right pleural effusion and small left pleural effusion. Patchy infiltrates are present bilaterally. There is mediastinal lymphadenopathy. Sclerotic changes within the T9 vertebral body suggestive of metastasis. (3) Pleural effusion: Code(s): J90 - Pleural effusion, not elsewhere classified Status: Acute Assessment and Plan: 09/03: Thoracentesis perform a ER physician early hours with a removal of 600 mL in yellow sticky fluid -pleural fluid LDH, protein are pending, -fluid gram stain did not show any organism -according the hospitalist, pleural fluid looked like an exudate. Will confirm with pleural fluid studies -continue antibiotics as above (4) Pneumonia: Code(s): J18.9 - Pneumonia, unspecified organism Status: Acute Assessment and Plan: Consolidation noted on CT scan of the chest -continue antibiotics as above -appreciate pulmonology evaluation and recommendations, thoracentesis scheduled for today, 09/04 (5) Encephalopathy: Code(s): G93.40 - Encephalopathy, unspecified Status: Acute Assessment and Plan: Encephalopathy could be multifactorial, septic shock, hypotension, hypoxia -currently intubated, not on any sedation. -will maintain Euthermia, adequate blood pressures, adequate oxygenation -09/03: patient did wake up and follows simple commands IMPRESSION: CT HEAD: 1. No acute intracranial findings. CTA NECK: 1. Motion artifact along carotid bulbs. Stenosis or even dissection not excluded. Recommend carotid ultrasound. CTA HEAD: 1. No large vessel arterial occlusive disease or other acute findings. 2. No aneurysms. (6) Coagulopathy: Code(s): D68.9 - Coagulation defect, unspecified Status: Acute Assessment and Plan: PTT elevated, continue to monitor, patient not on any anticoagulation at this time (7) Anemia: Code(s): D64.9 - Anemia, unspecified Status: Acute Assessment and Plan: 09/03: Hemoglobin dropped to 6.9 this morning from 7.5. Transfused 1 unit of packed RBCs -monitor H&H (8) Protein calorie malnutrition: Code(s): E46 - Unspecified protein-calorie malnutrition Status: Acute Assessment and Plan: Protein calorie malnutrition, BMI of 23.6 -likely moderate protein calorie malnutrition -will start trickle tube feeds -phosphorus was repleted (9) Metastatic malignant neoplasm to prostate: Code(s): C79.82 - Secondary malignant neoplasm of genital organs Status: Acute Assessment and Plan: Patient has metastatic prostate cancer, being treated by Dr. Walsh with palliative chemotherapy (10) Candidal balano-posthitis: Code(s): B37.49 - Other urogenital candidiasis Status: Acute Assessment and Plan: Continue micafungin (11) COPD (chronic obstructive pulmonary disease): Code(s): J44.9 - Chronic obstructive pulmonary disease, unspecified Status: Acute Assessment and Plan: Continue DuoNebs, on mechanical ventilation Plan patient with metastatic prostate cancer presented with weakness and fever, with neutropenia 2/2 chemotherapy, initially patient was admitted on medical floor, his symptoms worsen patient was transferred to ICU and currently intubated, patient is found to have pneumonia, patient is being treated meropenem, and vancomycin, patient is also has candidal balano-posthitis and being treated with fluconazole, patient neutropenia has resolved, 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 today patient clinical symptoms were improving, as well CXR and his ABG, patient was given SBT and was successful and was extubated today. patient remains clinically stable and on 2L NC, will monitor, once clinically will transfer patient out of ICU. Subjective Date/time seen: 09/08/25 15:30 Interval history: presented to the with Gen weakness and fever H&P-Narrative: 75yo M with Prostate ca on Chemo presented to [facility] with generalized weakness. ria noted his appetite has been very poor the last week mostly due to oral pain. Otherwise noted he was recently diagnosed of yeast balanitis by his PCP and was placed on medication however no respite from the symtptoms . Otherwise denies any chest pain, SOB, abd pain, diarrhea or focal symptoms. Fever noted at home ER evaluation notable for possible 2, temperature 98.6?, blood pressure 130/46, saturating 94% on room air. Labs notable for WBC 0.7, hemoglobin 7.9, platelets 112, sodium 129, MRSA negative. Chest x-ray showed a possible pneumonia. 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 today patient clinical symptoms were improving, as well CXR and his ABG, patient was given SBT and was successful and was extubated today. patient remains clinically stable and on 2L NC, will monitor, once clinically will transfer patient out of ICU. Review of Systems Review of Systems: ROS unobtainable: Yes unobtainable due to medical condition Exam Narrative: Patient is comfortable, NAD HEENT: eyes are clear and none icteric LUNGS:CTA HEART: RR S1S2 ABD: BS+, Soft and nontender Lower extremities: no edema SKIN: nonjaundiced Neuro: Still sedated Objective Data Vital Signs Vital Signs: Vital Signs - 24 hr 09/07/25 16:00 09/07/25 16:00 09/07/25 16:00 Temperature Pulse Rate 119 H 122 H 124 H Respiratory Rate 15 17 Blood Pressure 88/57 L 96/61 L Pulse Oximetry 100 Oxygen Delivery Oxygen Flow Rate Fraction of Inspired Oxygen 09/07/25 16:00 09/07/25 16:00 09/07/25 16:00 Temperature Pulse Rate 119 H 119 H Respiratory Rate 18 Blood Pressure Pulse Oximetry 100 Oxygen Delivery Mechanical Ventilation Oxygen Flow Rate Fraction of Inspired Oxygen 25 09/07/25 17:00 09/07/25 17:00 09/07/25 17:00 Temperature Pulse Rate 123 H 120 H 120 H Respiratory Rate 18 15 Blood Pressure 110/62 Pulse Oximetry 100 100 Oxygen Delivery Mechanical Ventilation Oxygen Flow Rate Fraction of Inspired Oxygen 09/07/25 17:07 09/07/25 17:07 09/07/25 18:00 Temperature Pulse Rate 120 H 120 H 122 H Respiratory Rate Blood Pressure 86/77 L 86/77 L Pulse Oximetry Oxygen Delivery Oxygen Flow Rate Fraction of Inspired Oxygen 09/07/25 18:00 09/07/25 18:00 09/07/25 18:00 Temperature 37.6 C Pulse Rate 114 H 128 H Respiratory Rate 18 15 Blood Pressure 104/53 L Pulse Oximetry 99 Oxygen Delivery Oxygen Flow Rate Fraction of Inspired Oxygen 09/07/25 18:00 09/07/25 19:00 09/07/25 19:37 Temperature 36.4 C Pulse Rate 128 H 134 H 128 H Respiratory Rate 18 19 Blood Pressure 101/64 115/65 Pulse Oximetry 99 Oxygen Delivery Oxygen Flow Rate Fraction of Inspired Oxygen 09/07/25 19:39 09/07/25 19:45 09/07/25 20:00 Temperature Pulse Rate 129 H 112 H 125 H Respiratory Rate 17 Blood Pressure 94/63 L Pulse Oximetry 100 Oxygen Delivery Mechanical Ventilation Oxygen Flow Rate Fraction of Inspired Oxygen 25 09/07/25 20:00 09/07/25 20:00 09/07/25 20:00 Temperature Pulse Rate 125 H 128 H Respiratory Rate 16 20 Blood Pressure 116/65 Pulse Oximetry 20 L 99 Oxygen Delivery Mechanical Ventilation Oxygen Flow Rate Fraction of Inspired Oxygen 25 09/07/25 20:00 09/07/25 20:00 09/07/25 21:00 Temperature 36.4 C Pulse Rate 127 H 80 Respiratory Rate 16 Blood Pressure 109/64 Pulse Oximetry 99 Oxygen Delivery Oxygen Flow Rate Fraction of Inspired Oxygen 25 09/07/25 22:00 09/07/25 22:00 09/07/25 22:00 Temperature Pulse Rate 118 H 118 H 118 H Respiratory Rate 17 Blood Pressure 112/61 Pulse Oximetry Oxygen Delivery Oxygen Flow Rate Fraction of Inspired Oxygen 09/07/25 22:00 09/07/25 22:45 09/07/25 22:47 Temperature 36.6 C Pulse Rate 118 H 131 H 135 H Respiratory Rate 17 Blood Pressure 112/61 130/75 Pulse Oximetry 98 99 Oxygen Delivery Mechanical Ventilation Oxygen Flow Rate Fraction of Inspired Oxygen 09/07/25 23:00 09/07/25 23:41 09/08/25 00:00 Temperature Pulse Rate 136 H 133 H Respiratory Rate 20 Blood Pressure 123/69 136/100 H Pulse Oximetry 99 98 Oxygen Delivery Mechanical Ventilation Oxygen Flow Rate Fraction of Inspired Oxygen 09/08/25 00:00 09/08/25 00:00 09/08/25 00:00 Temperature Pulse Rate 134 H 134 H Respiratory Rate 21 H Blood Pressure 120/65 Pulse Oximetry Oxygen Delivery Oxygen Flow Rate Fraction of Inspired Oxygen 09/08/25 00:00 09/08/25 00:00 09/08/25 01:00 Temperature 36.7 C Pulse Rate 134 H 129 H 126 H Respiratory Rate 21 H 22 H Blood Pressure 120/65 118/76 Pulse Oximetry 99 98 Oxygen Delivery Oxygen Flow Rate Fraction of Inspired Oxygen 09/08/25 01:50 09/08/25 01:55 09/08/25 02:00 Temperature Pulse Rate 127 H 120 H 128 H Respiratory Rate 22 H 22 H Blood Pressure Pulse Oximetry 99 Oxygen Delivery Mechanical Ventilation Oxygen Flow Rate Fraction of Inspired Oxygen 09/08/25 02:00 09/08/25 02:00 09/08/25 02:00 Temperature 36.8 C Pulse Rate 128 H 128 H 128 H Respiratory Rate 22 H Blood Pressure 132/81 132/81 Pulse Oximetry 99 Oxygen Delivery Oxygen Flow Rate Fraction of Inspired Oxygen 09/08/25 03:00 09/08/25 03:02 09/08/25 03:37 Temperature Pulse Rate 121 H 136 H 126 H Respiratory Rate 16 21 H 16 Blood Pressure 123/95 H Pulse Oximetry 100 Oxygen Delivery Oxygen Flow Rate Fraction of Inspired Oxygen 09/08/25 03:38 09/08/25 04:00 09/08/25 04:00 Temperature Pulse Rate 126 H 126 H 126 H Respiratory Rate 16 17 Blood Pressure 103/57 L Pulse Oximetry Oxygen Delivery Oxygen Flow Rate Fraction of Inspired Oxygen 09/08/25 04:00 09/08/25 04:00 09/08/25 04:00 Temperature 36.6 C Pulse Rate 126 H Respiratory Rate 17 Blood Pressure 103/57 L Pulse Oximetry 100 100 Oxygen Delivery Mechanical Ventilation Oxygen Flow Rate Fraction of Inspired Oxygen 09/08/25 04:00 09/08/25 04:32 09/08/25 05:00 Temperature Pulse Rate 124 H 130 H 125 H Respiratory Rate 17 Blood Pressure 115/64 Pulse Oximetry 99 100 Oxygen Delivery Mechanical Ventilation Oxygen Flow Rate Fraction of Inspired Oxygen 09/08/25 06:00 09/08/25 06:00 09/08/25 06:00 Temperature Pulse Rate 118 H 118 H 118 H Respiratory Rate 16 16 Blood Pressure 98/57 L Pulse Oximetry 100 Oxygen Delivery Oxygen Flow Rate Fraction of Inspired Oxygen 09/08/25 06:00 09/08/25 07:00 09/08/25 07:00 Temperature Pulse Rate 118 H 121 H 121 H Respiratory Rate 18 18 Blood Pressure 98/57 L 113/63 Pulse Oximetry 100 Oxygen Delivery Oxygen Flow Rate Fraction of Inspired Oxygen 09/08/25 07:00 09/08/25 07:27 09/08/25 08:00 Temperature Pulse Rate 121 H 119 H 118 H Respiratory Rate 22 H 15 Blood Pressure 113/63 Pulse Oximetry 100 Oxygen Delivery Mechanical Ventilation Oxygen Flow Rate Fraction of Inspired Oxygen 25 09/08/25 08:00 09/08/25 08:00 09/08/25 08:00 Temperature 37.1 C Pulse Rate 118 H 118 H Respiratory Rate 15 Blood Pressure 87/55 L Pulse Oximetry 100 Oxygen Delivery Oxygen Flow Rate Fraction of Inspired Oxygen 25 09/08/25 08:00 09/08/25 08:00 09/08/25 08:08 Temperature Pulse Rate 110 H 110 H 119 H Respiratory Rate 17 18 Blood Pressure 87/55 L Pulse Oximetry Oxygen Delivery Oxygen Flow Rate Fraction of Inspired Oxygen 09/08/25 08:09 09/08/25 08:14 09/08/25 08:15 Temperature Pulse Rate 119 H 110 H Respiratory Rate 18 Blood Pressure Pulse Oximetry 99 Oxygen Delivery Mechanical Ventilation Mechanical Ventilation Oxygen Flow Rate Fraction of Inspired Oxygen 09/08/25 09:00 09/08/25 09:00 09/08/25 09:00 Temperature Pulse Rate 121 H 121 H 133 H Respiratory Rate 16 16 Blood Pressure 119/62 127/109 H Pulse Oximetry 93 Oxygen Delivery Oxygen Flow Rate Fraction of Inspired Oxygen 09/08/25 10:00 09/08/25 10:00 09/08/25 10:00 Temperature Pulse Rate 127 H 127 H 127 H Respiratory Rate 13 13 Blood Pressure 111/57 L Pulse Oximetry 100 Oxygen Delivery Oxygen Flow Rate Fraction of Inspired Oxygen 09/08/25 10:00 09/08/25 10:46 09/08/25 11:00 Temperature Pulse Rate 127 H 119 H 127 H Respiratory Rate 16 13 Blood Pressure 111/57 L 111/57 L Pulse Oximetry 98 100 Oxygen Delivery Nasal Cannula Oxygen Flow Rate 2 Fraction of Inspired Oxygen 09/08/25 11:00 09/08/25 11:00 09/08/25 12:00 Temperature Pulse Rate 122 H 123 H 118 H Respiratory Rate 17 15 Blood Pressure 101/49 L Pulse Oximetry 100 Oxygen Delivery Nasal Cannula Oxygen Flow Rate 2 Fraction of Inspired Oxygen 09/08/25 12:00 09/08/25 12:00 09/08/25 12:00 Temperature Pulse Rate 118 H 118 H Respiratory Rate 15 Blood Pressure 103/69 Pulse Oximetry 100 Oxygen Delivery Oxygen Flow Rate Fraction of Inspired Oxygen 09/08/25 12:00 09/08/25 12:00 09/08/25 12:53 Temperature 36.3 C L Pulse Rate 118 H 119 H 113 H Respiratory Rate 17 14 Blood Pressure 98/51 L 99/52 L Pulse Oximetry 100 Oxygen Delivery Oxygen Flow Rate Fraction of Inspired Oxygen 09/08/25 13:00 09/08/25 13:00 09/08/25 13:58 Temperature Pulse Rate 115 H 120 H 123 H Respiratory Rate 15 17 Blood Pressure 99/53 L Pulse Oximetry Oxygen Delivery Oxygen Flow Rate Fraction of Inspired Oxygen 09/08/25 14:00 09/08/25 14:06 09/08/25 14:10 Temperature Pulse Rate 121 H 119 H 123 H Respiratory Rate 16 17 Blood Pressure 109/61 Pulse Oximetry 98 Oxygen Delivery Nasal Cannula Oxygen Flow Rate 2 Fraction of Inspired Oxygen Intake/Output Intake/Output: Intake & Output 09/05/25 09/06/25 09/07/25 09/08/25 23:59 23:59 23:59 23:59 Intake Total 1981.1333 1693.2 1149.5 860.5 Output Total 525 1200 2025 2625 Balance 1456.1333 493.2 -875.5 -1764.5 Meds/Results Medications: Active Medications Generic Name Dose Route Start Last Admin Trade Name Freq PRN Reason Stop Dose Admin Acetaminophen 650 mg 08/30/25 10:58 Acetaminophen 325 Mg Tablet PO Q4H PRN Mild Pain (1-3) or Fever Albuterol/Ipratropium 3 ml 09/01/25 08:55 09/08/25 13:55 Ipratropium 0.5 Mg/Albuterol Sulfate 2.5 Mg (Base) Ampul.Neb 3 Ml INHALATION 3 ml Q6HRT DARIEN Administration Lidocaine HCl 30 ml/ Al Hydrox 0 ml 08/30/25 17:00 09/03/25 07:00 /Mg Hydrox/Simethicone 30 ml/ PO Not Given Diphenhydramine HCl 75 mg Q4HWA DARIEN On Hold: 09/03/25 07:00 Dextrose 12.5 gm 09/03/25 10:06 Dextrose 50% 25 Gm/50 Ml Syringe IV PUSH PRN PRN Hypoglycemia Protocol Fenofibrate 145 mg 09/01/25 09:00 09/08/25 08:09 Fenofibrate 145 Mg Tablet PO 145 mg QAM DARIEN Administration Glucagon 1 mg 09/03/25 10:06 Glucagon For Inj 1 Mg Vial IM PRN PRN Hypoglycemia Protocol Glucose 15 gm 09/03/25 10:06 Glucose Oral Gel 15 Gm Of Glucse In 37.5 Gm Tube PO PRN PRN Hypoglycemia Protocol Heparin Sodium (Beef Lung) 50 units 09/03/25 09:00 09/08/25 08:09 Heparin Flush 50 Units/5 Ml Syringe IV PUSH 50 units QAM DARIEN Administration Heparin Sodium (Beef Lung) 50 units 09/03/25 07:03 Heparin Flush 50 Units/5 Ml Syringe IV PUSH PRN PRN after intermittent infusion Heparin Sodium (Beef Lung) 50 units 09/03/25 07:03 Heparin Flush 50 Units/5 Ml Syringe IV PUSH PRN PRN after blood draws Heparin Sodium (Porcine) 500 units 09/03/25 07:03 Heparin Sodium Lock Flush 500 Units/5 Ml Syringe IV PUSH PRN PRN see comments below Dextrose 1,000 mls @ 100 mls/hr 09/03/25 10:06 Dextrose 5% 1,000 Ml IVPB PRN PRN Hypoglycemia Protocol Meropenem 1 gm/ Sodium 100 mls @ 200 mls/hr 09/03/25 11:00 09/08/25 12:01 Chloride IVPB 200 mls/hr Q8H DARIEN Administration Dexmedetomidine HCl 400 mcg in 100 mls @ 4.005 mls/hr 09/05/25 13:40 09/08/25 13:00 Precedex 400 Mcg/100 Ml IV CONT 0.4 mcg/kg/hr .[id number] DARIEN 8.01 mls/hr Protocol Titration 0.2 MCG/KG/HR Norepinephrine Bitartrate 8 mg in 250 mls @ 0 mls/hr 09/06/25 15:20 09/08/25 14:00 Levophed 8 Mg/D5w 250 Ml IV CONT 0 mcg/min .Q0M DARIEN 0 mls/hr Protocol Titration 0 MCG/MIN Insulin Aspart 2 - 5 units 09/03/25 10:10 09/08/25 12:02 Insulin Aspart (*Bkc) 100 Units/Ml SUB-Q Not Given Q4HR DARIEN Protocol Lidocaine HCl 1 applic 08/30/25 20:34 08/31/25 09:34 Lidocaine 4% Soln 50 Ml Btl TOPICAL 1 applic PRN PRN Administration Pain Loratadine 10 mg 08/31/25 21:00 09/08/25 08:09 Loratadine 10 Mg Tablet PO 10 mg QAM DARIEN Administration Multi-Ingred Cream/Lotion/Oil/Oint 1 applic 09/03/25 09:00 09/08/25 08:09 Mineral Oil/White Petrolatum Ointment EACH EYE 1 applic Q12HR DARIEN Administration Pantoprazole Sodium 40 mg 09/03/25 21:00 09/08/25 08:09 Pantoprazole Sodium Iv 40 Mg Vial IV PUSH 40 mg Q12HR DARIEN Administration Sodium Chloride 10 ml 09/03/25 14:00 09/08/25 13:47 Central Line Flush IV PUSH 10 ml Q8HR DARIEN Administration Tamsulosin HCl 0.4 mg 09/01/25 09:00 09/08/25 08:09 Tamsulosin Hcl 0.4 Mg Capsule PO 0.4 mg DAILY DARIEN Administration Vitamin D 125 mcg 09/01/25 09:00 09/08/25 08:09 Cholecalciferol (Vitamin D3) 125 Mcg (5,000 Units) Tablet PO 125 mcg DAILY DARIEN Administration Radiology Results: ITS Impressions Head CT 09/03/25 06:23 IMPRESSION: 1. No acute intracranial findings. Head/Neck CTA 09/03/25 06:30 IMPRESSION: CT HEAD: 1. No acute intracranial findings. CTA NECK: 1. Motion artifact along carotid bulbs. Stenosis or even dissection not excluded. Recommend carotid ultrasound. CTA HEAD: 1. No large vessel arterial occlusive disease or other acute findings. 2. No aneurysms. Chest CT 09/03/25 07:26 IMPRESSION: 1. Significant decrease in lung volumes with prominent dependent atelectasis including partial collapse of the bilateral lower lobes. Superimposed pneumonia not excludable. 2. No significant change in small left and moderate-sized right pleural effusions. 3. Moderate amount of ascites in the upper abdomen. 4. Scattered sclerotic bone lesions consistent with known metastatic prostate cancer and with chronic pathologic fracture at T10. Carotid Doppler Study 09/03/25 17:25 IMPRESSION: 1. >=70% (but less than near occlusion) stenosis in the right internal carotid artery. 2. >=70% (but less than near occlusion) stenosis in the left internal carotid artery. 3. The degree of stenosis indicated by the increased velocities is greater than would be expected given the amount of calcified atherosclerotic plaque evident on the prior CT angiogram. This suggests that the lower density linear filling defects at the bilateral carotid bulbs seen on the prior CT angiogram are not artifactual and likely to represent small dissection flaps. Abdomen X-Ray 09/04/25 07:07 IMPRESSION: 1: NG tube tip in the stomach. 2: Bibasilar airspace disease may represent edema or pneumonia. Chest X-Ray 09/08/25 07:34 Impression: 1: Hazy diffuse bilateral airspace disease is stable. Differential diagnosis includes edema and pneumonia. Labs Labs: Laboratory Results - last 24 hr 09/04/25 09/06/25 09/07/25 10:05 12:45 16:18 WBC RBC Hgb Hct MCV MCH MCHC RDW Plt Count MPV Immature Gran % (Auto) Neut % (Auto) Lymph % (Auto) Hale % (Auto) Eos % (Auto) Baso % (Auto) Lymph # (Auto) Hale # (Auto) Eos # (Auto) Baso # (Auto) Abs Immat Gran (auto) Absolute Neuts (auto) Absolute Nucleated RBC Band Neutrophils % Nucleated RBC % Platelet Estimate Hypochromasia Anisocytosis Microcytosis Schistocytes Puncture Site ABG pH ABG pCO2 ABG pO2 ABG PO2/FiO2 Ratio Not Reportable ABG HCO3 ABG O2 Saturation Not Reportable ABG O2 Content Not Reportable ABG Base Excess A-a Gradient Not Reportable Oxyhemoglobin Not Reportable Carboxyhemoglobin Methemoglobin Reduced Hemoglobin Total Hemoglobin Not Reportable O2 Delivery Device O2 Liters/Min Not Reportable Minute Volume Not Reportable Vent Rate Not Reportable Vent Mode FiO2 Tidal Volume Not Reportable PEEP Peak Inspir Pressure Not Reportable Pressure Support Sodium Potassium Chloride Carbon Dioxide Anion Gap BUN Creatinine Estim Creat Clear Calc Estimated GFR Glucose POC Capillary Glucose 145 H Calcium Phosphorus Magnesium Total Bilirubin AST ALT Alkaline Phosphatase Total Protein Albumin Vancomycin Trough C. pneumoniae DNA (PCR) Negative 09/07/25 09/08/25 09/08/25 20:16 00:20 04:01 WBC RBC Hgb Hct MCV MCH MCHC RDW Plt Count MPV Immature Gran % (Auto) Neut % (Auto) Lymph % (Auto) Hale % (Auto) Eos % (Auto) Baso % (Auto) Lymph # (Auto) Hale # (Auto) Eos # (Auto) Baso # (Auto) Abs Immat Gran (auto) Absolute Neuts (auto) Absolute Nucleated RBC Band Neutrophils % Nucleated RBC % Platelet Estimate Hypochromasia Anisocytosis Microcytosis Schistocytes Puncture Site ABG pH ABG pCO2 ABG pO2 ABG PO2/FiO2 Ratio ABG HCO3 ABG O2 Saturation ABG O2 Content ABG Base Excess A-a Gradient Oxyhemoglobin Carboxyhemoglobin Methemoglobin Reduced Hemoglobin Total Hemoglobin O2 Delivery Device O2 Liters/Min Minute Volume Vent Rate Vent Mode FiO2 Tidal Volume PEEP Peak Inspir Pressure Pressure Support Sodium Potassium Chloride Carbon Dioxide Anion Gap BUN Creatinine Estim Creat Clear Calc Estimated GFR Glucose POC Capillary Glucose 159 H 177 H 173 H Calcium Phosphorus Magnesium Total Bilirubin AST ALT Alkaline Phosphatase Total Protein Albumin Vancomycin Trough C. pneumoniae DNA (PCR) 09/08/25 09/08/25 09/08/25 04:08 04:31 08:11 WBC 19.4 H RBC 3.02 L Hgb 9.1 L Hct 29.1 L MCV 96.4 MCH 30.1 MCHC 31.3 L RDW 20.4 H Plt Count 133 L MPV 11.0 H Immature Gran % (Auto) 4.0 H Neut % (Auto) 81.9 H Lymph % (Auto) 2.7 L Hale % (Auto) 11.0 H Eos % (Auto) 0.0 Baso % (Auto) 0.4 Lymph # (Auto) 0.53 L Hale # (Auto) 2.1 H Eos # (Auto) 0.0 Baso # (Auto) 0.1 Abs Immat Gran (auto) 0.78 H Absolute Neuts (auto) 15.8 H Absolute Nucleated RBC 0.020 H Band Neutrophils % Not Reportable Nucleated RBC % 0.1 Platelet Estimate Adequate Hypochromasia 1+ Anisocytosis 1+ Microcytosis 1+ Schistocytes None seen Puncture Site Right brachial ABG pH 7.501 H ABG pCO2 36.3 ABG pO2 78.6 L ABG PO2/FiO2 Ratio 3.14 ABG HCO3 27.7 H ABG O2 Saturation 96.6 ABG O2 Content 13.6 L ABG Base Excess 4.4 A-a Gradient 56.5 Oxyhemoglobin 94.9 Carboxyhemoglobin 0.5 Methemoglobin 0.3 Reduced Hemoglobin 4.3 Total Hemoglobin 10.1 L O2 Delivery Device Ventilator O2 Liters/Min Not Reportable Minute Volume Not Reportable Vent Rate 16 Vent Mode Cmv FiO2 25 Tidal Volume 380 PEEP 5 Peak Inspir Pressure Not Reportable Pressure Support Not Reportable Sodium 141 Potassium 3.9 Chloride 109 H Carbon Dioxide 32 H Anion Gap 0 L BUN 21 H Creatinine 0.67 L Estim Creat Clear Calc 79 Estimated GFR > 60 Glucose 163 H POC Capillary Glucose 150 H Calcium 7.6 L Phosphorus 2.5 Magnesium 2.0 Total Bilirubin 0.8 AST 96 H ALT 27 Alkaline Phosphatase 153 H Total Protein 4.5 L Albumin 2.5 L Vancomycin Trough 17.5 C. pneumoniae DNA (PCR) 09/08/25 09/08/25 10:17 11:55 WBC RBC Hgb Hct MCV MCH MCHC RDW Plt Count MPV Immature Gran % (Auto) Neut % (Auto) Lymph % (Auto) Hale % (Auto) Eos % (Auto) Baso % (Auto) Lymph # (Auto) Hale # (Auto) Eos # (Auto) Baso # (Auto) Abs Immat Gran (auto) Absolute Neuts (auto) Absolute Nucleated RBC Band Neutrophils % Nucleated RBC % Platelet Estimate Hypochromasia Anisocytosis Microcytosis Schistocytes Puncture Site Right brachial ABG pH 7.517 H* ABG pCO2 36.2 ABG pO2 83.5 ABG PO2/FiO2 Ratio 3.34 ABG HCO3 28.7 H ABG O2 Saturation 97.2 ABG O2 Content 12.9 L ABG Base Excess 5.5 A-a Gradient 51.8 Oxyhemoglobin 95.5 Carboxyhemoglobin Methemoglobin Reduced Hemoglobin Total Hemoglobin 9.5 L O2 Delivery Device Ventilator O2 Liters/Min Not Reportable Minute Volume Not Reportable Vent Rate Not Reportable Vent Mode Pressure support FiO2 25 Tidal Volume Not Reportable PEEP 5 Peak Inspir Pressure Not Reportable Pressure Support 5 Sodium Potassium Chloride Carbon Dioxide Anion Gap BUN Creatinine Estim Creat Clear Calc Estimated GFR Glucose POC Capillary Glucose 133 H Calcium Phosphorus Magnesium Total Bilirubin AST ALT Alkaline Phosphatase Total Protein Albumin Vancomycin Trough C. pneumoniae DNA (PCR) Quality VTE Prophylaxis VTE prophylaxis: mechanical ordered
--- NOTE | 2025-09-08 19:50 | P.PNINF_ITS ---
Progress Note: A&P Assessment and Plan (1) Fever and neutropenia: Code(s): D70.9 - Neutropenia, unspecified; R50.81 - Fever presenting with conditions classified elsewhere Status: Acute (2) Pneumonia: Code(s): J18.9 - Pneumonia, unspecified organism Status: Acute (3) Stomatitis and mucositis: Code(s): K12.1 - Other forms of stomatitis; K12.30 - Oral mucositis (ulcerative), unspecified Status: Acute (4) Candidal balano-posthitis: Code(s): B37.49 - Other urogenital candidiasis Status: Acute (5) Septic shock: Code(s): A41.9 - Sepsis, unspecified organism; R65.21 - Severe sepsis with septic shock Status: Acute (6) Encephalopathy: Code(s): G93.40 - Encephalopathy, unspecified Status: Acute (7) Metastatic malignant neoplasm to prostate: Code(s): C79.82 - Secondary malignant neoplasm of genital organs Status: Acute Plan # Post chemotherapy neutropenia without fever -- neutropenia now resolved. +leukocytosis now; # original admission with Possible left lung base pneumonia. -- originally placed on cefepime, azithromycin, and vancomycin. # Development of severe sepsis with shock. on a pressor--resolved -- now associated with progressive respiratory disease including pleural effusions, pleural atelectasis, and bilateral pneumonitis--extubated and improving -- no longer neutropenic but the above may have been developing while initially neutropenic. -- pleural fluid cultures and repeat blood cultures are unrevealing. Bronchoscopy cultures also unrevealing to date -- antibiotics have been broadened to Meropenem, vancomycin, and micafungin # Post chemotherapy mucositis. # Balanitis. # Metastatic prostate cancer. RECOMMENDATIONS: will continue to monitor cultures--so far unrevealing d/c vanco d/c micafungin continue meropenem topical antifungal to penis d/w son, nursing staff and pharmacy staff Patient was seen via video telehealth consultation with the assistance of staff. Chart, data, and patient independently reviewed. Patient was located at [facility] while I was located in my [place] office. Received verbal consent from patient. Subjective Date/time seen: 09/08/25 19:50 Interval history: extubated no pressors sedated Exam Narrative: On 2L O2 NC cor: tachy +PAC abd soft NT +edema but improved Objective Data Vital Signs Vital Signs: Vital Signs - 24 hr 09/07/25 20:00 09/07/25 20:00 09/07/25 20:00 Temperature Pulse Rate 125 H 125 H 128 H Respiratory Rate 16 20 Blood Pressure 94/63 L 116/65 Pulse Oximetry 20 L Oxygen Delivery Oxygen Flow Rate Fraction of Inspired Oxygen 09/07/25 20:00 09/07/25 20:00 09/07/25 20:00 Temperature Pulse Rate 127 H Respiratory Rate Blood Pressure Pulse Oximetry 99 Oxygen Delivery Mechanical Ventilation Oxygen Flow Rate Fraction of Inspired Oxygen 09/07/25 21:00 09/07/25 22:00 09/07/25 22:00 Temperature 97.6 F Pulse Rate 80 118 H 118 H Respiratory Rate 16 17 Blood Pressure 109/64 112/61 Pulse Oximetry 99 Oxygen Delivery Oxygen Flow Rate Fraction of Inspired Oxygen 09/07/25 22:00 09/07/25 22:00 09/07/25 22:45 Temperature 97.8 F Pulse Rate 118 H 118 H 131 H Respiratory Rate 17 Blood Pressure 112/61 Pulse Oximetry 98 99 Oxygen Delivery Mechanical Ventilation Oxygen Flow Rate Fraction of Inspired Oxygen 09/07/25 22:47 09/07/25 23:00 09/07/25 23:41 Temperature Pulse Rate 135 H 136 H 133 H Respiratory Rate 20 Blood Pressure 130/75 123/69 136/100 H Pulse Oximetry 99 Oxygen Delivery Oxygen Flow Rate Fraction of Inspired Oxygen 09/08/25 00:00 09/08/25 00:00 09/08/25 00:00 Temperature Pulse Rate 134 H Respiratory Rate 21 H Blood Pressure Pulse Oximetry 98 Oxygen Delivery Mechanical Ventilation Oxygen Flow Rate Fraction of Inspired Oxygen 09/08/25 00:00 09/08/25 00:00 09/08/25 00:00 Temperature 98.1 F Pulse Rate 134 H 134 H 129 H Respiratory Rate 21 H Blood Pressure 120/65 120/65 Pulse Oximetry 99 Oxygen Delivery Oxygen Flow Rate Fraction of Inspired Oxygen 09/08/25 01:00 09/08/25 01:50 09/08/25 01:55 Temperature Pulse Rate 126 H 127 H 120 H Respiratory Rate 22 H 22 H Blood Pressure 118/76 Pulse Oximetry 98 99 Oxygen Delivery Mechanical Ventilation Oxygen Flow Rate Fraction of Inspired Oxygen 09/08/25 02:00 09/08/25 02:00 09/08/25 02:00 Temperature Pulse Rate 128 H 128 H 128 H Respiratory Rate 22 H Blood Pressure 132/81 Pulse Oximetry Oxygen Delivery Oxygen Flow Rate Fraction of Inspired Oxygen 09/08/25 02:00 09/08/25 03:00 09/08/25 03:02 Temperature 98.2 F Pulse Rate 128 H 121 H 136 H Respiratory Rate 22 H 16 21 H Blood Pressure 132/81 123/95 H Pulse Oximetry 99 100 Oxygen Delivery Oxygen Flow Rate Fraction of Inspired Oxygen 09/08/25 03:37 09/08/25 03:38 09/08/25 04:00 Temperature Pulse Rate 126 H 126 H 126 H Respiratory Rate 16 16 17 Blood Pressure Pulse Oximetry Oxygen Delivery Oxygen Flow Rate Fraction of Inspired Oxygen 09/08/25 04:00 09/08/25 04:00 09/08/25 04:00 Temperature Pulse Rate 126 H Respiratory Rate Blood Pressure 103/57 L Pulse Oximetry 100 Oxygen Delivery Mechanical Ventilation Oxygen Flow Rate Fraction of Inspired Oxygen 09/08/25 04:00 09/08/25 04:00 09/08/25 04:32 Temperature 98 F Pulse Rate 126 H 124 H 130 H Respiratory Rate 17 Blood Pressure 103/57 L Pulse Oximetry 100 99 Oxygen Delivery Mechanical Ventilation Oxygen Flow Rate Fraction of Inspired Oxygen 09/08/25 05:00 09/08/25 06:00 09/08/25 06:00 Temperature Pulse Rate 125 H 118 H 118 H Respiratory Rate 17 16 Blood Pressure 115/64 98/57 L Pulse Oximetry 100 100 Oxygen Delivery Oxygen Flow Rate Fraction of Inspired Oxygen 09/08/25 06:00 09/08/25 06:00 09/08/25 07:00 Temperature Pulse Rate 118 H 118 H 121 H Respiratory Rate 16 18 Blood Pressure 98/57 L 113/63 Pulse Oximetry 100 Oxygen Delivery Oxygen Flow Rate Fraction of Inspired Oxygen 09/08/25 07:00 09/08/25 07:00 09/08/25 07:27 Temperature Pulse Rate 121 H 121 H 119 H Respiratory Rate 18 22 H Blood Pressure 113/63 Pulse Oximetry Oxygen Delivery Oxygen Flow Rate Fraction of Inspired Oxygen 09/08/25 08:00 09/08/25 08:00 09/08/25 08:00 Temperature Pulse Rate 118 H 118 H Respiratory Rate 15 Blood Pressure Pulse Oximetry 100 Oxygen Delivery Mechanical Ventilation Oxygen Flow Rate Fraction of Inspired Oxygen 25 09/08/25 08:00 09/08/25 08:00 09/08/25 08:00 Temperature 98.7 F Pulse Rate 118 H 110 H 110 H Respiratory Rate 15 17 Blood Pressure 87/55 L 87/55 L Pulse Oximetry 100 Oxygen Delivery Oxygen Flow Rate Fraction of Inspired Oxygen 09/08/25 08:08 09/08/25 08:09 09/08/25 08:14 Temperature Pulse Rate 119 H 119 H 110 H Respiratory Rate 18 18 Blood Pressure Pulse Oximetry 99 Oxygen Delivery Mechanical Ventilation Oxygen Flow Rate Fraction of Inspired Oxygen 09/08/25 08:15 09/08/25 09:00 09/08/25 09:00 Temperature Pulse Rate 121 H 121 H Respiratory Rate 16 16 Blood Pressure 119/62 Pulse Oximetry 93 Oxygen Delivery Mechanical Ventilation Oxygen Flow Rate Fraction of Inspired Oxygen 09/08/25 09:00 09/08/25 10:00 09/08/25 10:00 Temperature Pulse Rate 133 H 127 H 127 H Respiratory Rate 13 Blood Pressure 127/109 H 111/57 L Pulse Oximetry 100 Oxygen Delivery Oxygen Flow Rate Fraction of Inspired Oxygen 09/08/25 10:00 09/08/25 10:00 09/08/25 10:46 Temperature Pulse Rate 127 H 127 H 119 H Respiratory Rate 13 16 Blood Pressure 111/57 L Pulse Oximetry 98 Oxygen Delivery Nasal Cannula Oxygen Flow Rate 2 Fraction of Inspired Oxygen 09/08/25 11:00 09/08/25 11:00 09/08/25 11:00 Temperature Pulse Rate 127 H 122 H 123 H Respiratory Rate 13 17 Blood Pressure 111/57 L 101/49 L Pulse Oximetry 100 Oxygen Delivery Oxygen Flow Rate Fraction of Inspired Oxygen 09/08/25 12:00 09/08/25 12:00 09/08/25 12:00 Temperature Pulse Rate 118 H 118 H Respiratory Rate 15 Blood Pressure Pulse Oximetry 100 Oxygen Delivery Nasal Cannula Oxygen Flow Rate 2 Fraction of Inspired Oxygen 09/08/25 12:00 09/08/25 12:00 09/08/25 12:00 Temperature Pulse Rate 118 H 118 H 119 H Respiratory Rate 15 17 Blood Pressure 103/69 98/51 L Pulse Oximetry 100 Oxygen Delivery Oxygen Flow Rate Fraction of Inspired Oxygen 09/08/25 12:53 09/08/25 13:00 09/08/25 13:00 Temperature 97.3 F L Pulse Rate 113 H 115 H 120 H Respiratory Rate 14 15 Blood Pressure 99/52 L 99/53 L Pulse Oximetry 100 Oxygen Delivery Oxygen Flow Rate Fraction of Inspired Oxygen 09/08/25 13:00 09/08/25 13:58 09/08/25 14:00 Temperature Pulse Rate 120 H 123 H 121 H Respiratory Rate 21 H 17 Blood Pressure 109/61 Pulse Oximetry Oxygen Delivery Oxygen Flow Rate Fraction of Inspired Oxygen 09/08/25 14:00 09/08/25 14:00 09/08/25 14:00 Temperature Pulse Rate 121 H 121 H 121 H Respiratory Rate 17 17 Blood Pressure 109/60 Pulse Oximetry 99 Oxygen Delivery Oxygen Flow Rate Fraction of Inspired Oxygen 09/08/25 14:06 09/08/25 14:10 09/08/25 15:00 Temperature Pulse Rate 119 H 123 H 116 H Respiratory Rate 16 17 15 Blood Pressure 94/55 L Pulse Oximetry 98 98 Oxygen Delivery Nasal Cannula Oxygen Flow Rate 2 Fraction of Inspired Oxygen 09/08/25 15:00 09/08/25 15:00 09/08/25 16:00 Temperature Pulse Rate 116 H 116 H 120 H Respiratory Rate 13 15 Blood Pressure 94/55 L Pulse Oximetry Oxygen Delivery Oxygen Flow Rate Fraction of Inspired Oxygen 09/08/25 16:00 09/08/25 16:00 09/08/25 16:00 Temperature Pulse Rate 120 H 120 H 117 H Respiratory Rate 15 Blood Pressure 101/62 Pulse Oximetry 98 Oxygen Delivery Nasal Cannula Oxygen Flow Rate 1 Fraction of Inspired Oxygen 09/08/25 16:00 09/08/25 17:00 09/08/25 17:00 Temperature Pulse Rate 117 H 117 H 126 H Respiratory Rate 15 15 15 Blood Pressure 101/62 101/62 Pulse Oximetry 98 98 Oxygen Delivery Oxygen Flow Rate Fraction of Inspired Oxygen 09/08/25 17:00 09/08/25 18:00 09/08/25 18:00 Temperature Pulse Rate 122 H 127 H 127 H Respiratory Rate 19 Blood Pressure 108/61 112/65 Pulse Oximetry 95 Oxygen Delivery Oxygen Flow Rate Fraction of Inspired Oxygen 09/08/25 18:00 09/08/25 18:00 Temperature Pulse Rate 128 H 122 H Respiratory Rate 16 Blood Pressure 111/60 Pulse Oximetry Oxygen Delivery Oxygen Flow Rate Fraction of Inspired Oxygen Intake/Output Intake/Output: Intake & Output 09/05/25 09/06/25 09/07/25 09/08/25 23:59 23:59 23:59 23:59 Intake Total 1981.1333 1693.2 1149.5 937.8 Output Total 525 1200 2025 3875 Balance 1456.1333 493.2 -875.5 -2937.2 Meds/Results Medications: Active Medications Generic Name Dose Route Start Last Admin Trade Name Freq PRN Reason Stop Dose Admin Acetaminophen 650 mg 08/30/25 10:58 Acetaminophen 325 Mg Tablet PO Q4H PRN Mild Pain (1-3) or Fever Albuterol/Ipratropium 3 ml 09/01/25 08:55 09/08/25 13:55 Ipratropium 0.5 Mg/Albuterol Sulfate 2.5 Mg (Base) Ampul.Neb 3 Ml INHALATION 3 ml Q6HRT DARIEN Administration Lidocaine HCl 30 ml/ Al Hydrox 0 ml 08/30/25 17:00 09/03/25 07:00 /Mg Hydrox/Simethicone 30 ml/ PO Not Given Diphenhydramine HCl 75 mg Q4HWA DARIEN On Hold: 09/03/25 07:00 Dextrose 12.5 gm 09/03/25 10:06 Dextrose 50% 25 Gm/50 Ml Syringe IV PUSH PRN PRN Hypoglycemia Protocol Fenofibrate 145 mg 09/01/25 09:00 09/08/25 08:09 Fenofibrate 145 Mg Tablet PO 145 mg QAM DARIEN Administration Glucagon 1 mg 09/03/25 10:06 Glucagon For Inj 1 Mg Vial IM PRN PRN Hypoglycemia Protocol Glucose 15 gm 09/03/25 10:06 Glucose Oral Gel 15 Gm Of Glucse In 37.5 Gm Tube PO PRN PRN Hypoglycemia Protocol Heparin Sodium (Beef Lung) 50 units 09/03/25 09:00 09/08/25 08:09 Heparin Flush 50 Units/5 Ml Syringe IV PUSH 50 units QAM DARIEN Administration Heparin Sodium (Beef Lung) 50 units 09/03/25 07:03 Heparin Flush 50 Units/5 Ml Syringe IV PUSH PRN PRN after intermittent infusion Heparin Sodium (Beef Lung) 50 units 09/03/25 07:03 Heparin Flush 50 Units/5 Ml Syringe IV PUSH PRN PRN after blood draws Heparin Sodium (Porcine) 500 units 09/03/25 07:03 Heparin Sodium Lock Flush 500 Units/5 Ml Syringe IV PUSH PRN PRN see comments below Dextrose 1,000 mls @ 100 mls/hr 09/03/25 10:06 Dextrose 5% 1,000 Ml IVPB PRN PRN Hypoglycemia Protocol Meropenem 1 gm/ Sodium 100 mls @ 200 mls/hr 09/03/25 11:00 09/08/25 12:01 Chloride IVPB 200 mls/hr Q8H DARIEN Administration Dexmedetomidine HCl 400 mcg in 100 mls @ 4.005 mls/hr 09/05/25 13:40 09/08/25 18:00 Precedex 400 Mcg/100 Ml IV CONT Infused .[id number] DARIEN Titration Protocol 0.2 MCG/KG/HR Norepinephrine Bitartrate 8 mg in 250 mls @ 0 mls/hr 09/06/25 15:20 09/08/25 18:00 Levophed 8 Mg/D5w 250 Ml IV CONT 0 mcg/min .Q0M DARIEN 0 mls/hr Protocol Titration 0 MCG/MIN Insulin Aspart 2 - 5 units 09/03/25 10:10 09/08/25 16:23 Insulin Aspart (*Bkc) 100 Units/Ml SUB-Q Not Given Q4HR DARIEN Protocol Lidocaine HCl 1 applic 08/30/25 20:34 08/31/25 09:34 Lidocaine 4% Soln 50 Ml Btl TOPICAL 1 applic PRN PRN Administration Pain Loratadine 10 mg 08/31/25 21:00 09/08/25 08:09 Loratadine 10 Mg Tablet PO 10 mg QAM DARIEN Administration Pantoprazole Sodium 40 mg 09/03/25 21:00 09/08/25 08:09 Pantoprazole Sodium Iv 40 Mg Vial IV PUSH 40 mg Q12HR DARIEN Administration Sodium Chloride 10 ml 09/03/25 14:00 09/08/25 13:47 Central Line Flush IV PUSH 10 ml Q8HR DARIEN Administration Tamsulosin HCl 0.4 mg 09/01/25 09:00 09/08/25 08:09 Tamsulosin Hcl 0.4 Mg Capsule PO 0.4 mg DAILY DARIEN Administration Vitamin D 125 mcg 09/01/25 09:00 09/08/25 08:09 Cholecalciferol (Vitamin D3) 125 Mcg (5,000 Units) Tablet PO 125 mcg DAILY DARIEN Administration Radiology Results: ITS Impressions Head CT 09/03/25 06:23 IMPRESSION: 1. No acute intracranial findings. Head/Neck CTA 09/03/25 06:30 IMPRESSION: CT HEAD: 1. No acute intracranial findings. CTA NECK: 1. Motion artifact along carotid bulbs. Stenosis or even dissection not excluded. Recommend carotid ultrasound. CTA HEAD: 1. No large vessel arterial occlusive disease or other acute findings. 2. No aneurysms. Chest CT 09/03/25 07:26 IMPRESSION: 1. Significant decrease in lung volumes with prominent dependent atelectasis including partial collapse of the bilateral lower lobes. Superimposed pneumonia not excludable. 2. No significant change in small left and moderate-sized right pleural effusions. 3. Moderate amount of ascites in the upper abdomen. 4. Scattered sclerotic bone lesions consistent with known metastatic prostate cancer and with chronic pathologic fracture at T10. Carotid Doppler Study 09/03/25 17:25 IMPRESSION: 1. >=70% (but less than near occlusion) stenosis in the right internal carotid artery. 2. >=70% (but less than near occlusion) stenosis in the left internal carotid artery. 3. The degree of stenosis indicated by the increased velocities is greater than would be expected given the amount of calcified atherosclerotic plaque evident on the prior CT angiogram. This suggests that the lower density linear filling defects at the bilateral carotid bulbs seen on the prior CT angiogram are not artifactual and likely to represent small dissection flaps. Abdomen X-Ray 09/04/25 07:07 IMPRESSION: 1: NG tube tip in the stomach. 2: Bibasilar airspace disease may represent edema or pneumonia. Chest X-Ray 09/08/25 07:34 Impression: 1: Hazy diffuse bilateral airspace disease is stable. Differential diagnosis includes edema and pneumonia. Labs Labs: Laboratory Results - last 24 hr 09/04/25 09/06/25 09/07/25 10:05 12:45 20:16 WBC RBC Hgb Hct MCV MCH MCHC RDW Plt Count MPV Immature Gran % (Auto) Neut % (Auto) Lymph % (Auto) Campbell % (Auto) Eos % (Auto) Baso % (Auto) Lymph # (Auto) Campbell # (Auto) Eos # (Auto) Baso # (Auto) Abs Immat Gran (auto) Absolute Neuts (auto) Absolute Nucleated RBC Band Neutrophils % Nucleated RBC % Platelet Estimate Hypochromasia Anisocytosis Microcytosis Schistocytes Puncture Site ABG pH ABG pCO2 ABG pO2 ABG PO2/FiO2 Ratio Not Reportable ABG HCO3 ABG O2 Saturation Not Reportable ABG O2 Content Not Reportable ABG Base Excess A-a Gradient Not Reportable Oxyhemoglobin Not Reportable Carboxyhemoglobin Methemoglobin Reduced Hemoglobin Total Hemoglobin Not Reportable O2 Delivery Device O2 Liters/Min Not Reportable Minute Volume Not Reportable Vent Rate Not Reportable Vent Mode FiO2 Tidal Volume Not Reportable PEEP Peak Inspir Pressure Not Reportable Pressure Support Sodium Potassium Chloride Carbon Dioxide Anion Gap BUN Creatinine Estim Creat Clear Calc Estimated GFR Glucose POC Capillary Glucose 159 H Calcium Phosphorus Magnesium Total Bilirubin AST ALT Alkaline Phosphatase Total Protein Albumin Vancomycin Trough C. pneumoniae DNA (PCR) Negative 09/08/25 09/08/25 09/08/25 00:20 04:01 04:08 WBC 19.4 H RBC 3.02 L Hgb 9.1 L Hct 29.1 L MCV 96.4 MCH 30.1 MCHC 31.3 L RDW 20.4 H Plt Count 133 L MPV 11.0 H Immature Gran % (Auto) 4.0 H Neut % (Auto) 81.9 H Lymph % (Auto) 2.7 L Campbell % (Auto) 11.0 H Eos % (Auto) 0.0 Baso % (Auto) 0.4 Lymph # (Auto) 0.53 L Campbell # (Auto) 2.1 H Eos # (Auto) 0.0 Baso # (Auto) 0.1 Abs Immat Gran (auto) 0.78 H Absolute Neuts (auto) 15.8 H Absolute Nucleated RBC 0.020 H Band Neutrophils % Not Reportable Nucleated RBC % 0.1 Platelet Estimate Adequate Hypochromasia 1+ Anisocytosis 1+ Microcytosis 1+ Schistocytes None seen Puncture Site ABG pH ABG pCO2 ABG pO2 ABG PO2/FiO2 Ratio ABG HCO3 ABG O2 Saturation ABG O2 Content ABG Base Excess A-a Gradient Oxyhemoglobin Carboxyhemoglobin Methemoglobin Reduced Hemoglobin Total Hemoglobin O2 Delivery Device O2 Liters/Min Minute Volume Vent Rate Vent Mode FiO2 Tidal Volume PEEP Peak Inspir Pressure Pressure Support Sodium 141 Potassium 3.9 Chloride 109 H Carbon Dioxide 32 H Anion Gap 0 L BUN 21 H Creatinine 0.67 L Estim Creat Clear Calc 79 Estimated GFR > 60 Glucose 163 H POC Capillary Glucose 177 H 173 H Calcium 7.6 L Phosphorus 2.5 Magnesium 2.0 Total Bilirubin 0.8 AST 96 H ALT 27 Alkaline Phosphatase 153 H Total Protein 4.5 L Albumin 2.5 L Vancomycin Trough 17.5 C. pneumoniae DNA (PCR) 09/08/25 09/08/25 09/08/25 04:31 08:11 10:17 WBC RBC Hgb Hct MCV MCH MCHC RDW Plt Count MPV Immature Gran % (Auto) Neut % (Auto) Lymph % (Auto) Campbell % (Auto) Eos % (Auto) Baso % (Auto) Lymph # (Auto) Campbell # (Auto) Eos # (Auto) Baso # (Auto) Abs Immat Gran (auto) Absolute Neuts (auto) Absolute Nucleated RBC Band Neutrophils % Nucleated RBC % Platelet Estimate Hypochromasia Anisocytosis Microcytosis Schistocytes Puncture Site Right brachial Right brachial ABG pH 7.501 H 7.517 H* ABG pCO2 36.3 36.2 ABG pO2 78.6 L 83.5 ABG PO2/FiO2 Ratio 3.14 3.34 ABG HCO3 27.7 H 28.7 H ABG O2 Saturation 96.6 97.2 ABG O2 Content 13.6 L 12.9 L ABG Base Excess 4.4 5.5 A-a Gradient 56.5 51.8 Oxyhemoglobin 94.9 95.5 Carboxyhemoglobin 0.5 Methemoglobin 0.3 Reduced Hemoglobin 4.3 Total Hemoglobin 10.1 L 9.5 L O2 Delivery Device Ventilator Ventilator O2 Liters/Min Not Reportable Not Reportable Minute Volume Not Reportable Not Reportable Vent Rate 16 Not Reportable Vent Mode Cmv Pressure support FiO2 25 25 Tidal Volume 380 Not Reportable PEEP 5 5 Peak Inspir Pressure Not Reportable Not Reportable Pressure Support Not Reportable 5 Sodium Potassium Chloride Carbon Dioxide Anion Gap BUN Creatinine Estim Creat Clear Calc Estimated GFR Glucose POC Capillary Glucose 150 H Calcium Phosphorus Magnesium Total Bilirubin AST ALT Alkaline Phosphatase Total Protein Albumin Vancomycin Trough C. pneumoniae DNA (PCR) 09/08/25 09/08/25 11:55 16:19 WBC RBC Hgb Hct MCV MCH MCHC RDW Plt Count MPV Immature Gran % (Auto) Neut % (Auto) Lymph % (Auto) Campbell % (Auto) Eos % (Auto) Baso % (Auto) Lymph # (Auto) Campbell # (Auto) Eos # (Auto) Baso # (Auto) Abs Immat Gran (auto) Absolute Neuts (auto) Absolute Nucleated RBC Band Neutrophils % Nucleated RBC % Platelet Estimate Hypochromasia Anisocytosis Microcytosis Schistocytes Puncture Site ABG pH ABG pCO2 ABG pO2 ABG PO2/FiO2 Ratio ABG HCO3 ABG O2 Saturation ABG O2 Content ABG Base Excess A-a Gradient Oxyhemoglobin Carboxyhemoglobin Methemoglobin Reduced Hemoglobin Total Hemoglobin O2 Delivery Device O2 Liters/Min Minute Volume Vent Rate Vent Mode FiO2 Tidal Volume PEEP Peak Inspir Pressure Pressure Support Sodium Potassium Chloride Carbon Dioxide Anion Gap BUN Creatinine Estim Creat Clear Calc Estimated GFR Glucose POC Capillary Glucose 133 H 115 H Calcium Phosphorus Magnesium Total Bilirubin AST ALT Alkaline Phosphatase Total Protein Albumin Vancomycin Trough C. pneumoniae DNA (PCR)
[2025-09-08] MEDS: METOPROLOL TARTRATE 25 MG TABLET PO (22:51)
[2025-09-09] VITALS (27 sets, daily range): BP systolic 99–140; BP diastolic 52–87; PULSE 99–122; RESP 10–26; TEMP 36.6–36.9; O2SAT 94–100
[2025-09-09] MEDS: IPRATROPIUM 0.5 MG/ALBUTEROL SULFATE 2.5 MG (BASE) AMPUL.NEB 3 ML INHALATION ×2 (01:51→07:39)
[2025-09-09] MEDS: MEROPENEM 1 GM in SODIUM CHLORIDE 0.9% IV 100 ML 200 ML IVPB ×3 (03:38→18:16)
[2025-09-09 04:55] LABS: Alveolar/Arterial O2 Gradient 34.2 mmHg; Carboxyhemoglobin 1.0 % THb (0-2.0); Fractional Inspired Oxygen 30 %; HCO3 ABG 26.0 mEq/l (22.0-26.0); Methemoglobin ABG 0.1 %THb (0-1.5); Oxygen Content ABG 18.2 %vol (16.0-22.0); Oxygen Saturation ABG 98.7 % (95.0-100.0); PCO2 ABG 40.4 mmHg (35.0-45.0); PO2 ABG 132.2 mmHg (80.0-100.0); PO2 FiO2 Ratio Arterial Blood 4.41 %; Reduced Hemoglobin 1.3 %THb (0-5.0)
[2025-09-09] MEDS: CENTRAL LINE FLUSH 10 ML IV PUSH ×2 (04:57→14:34)
[2025-09-09 05:11] LABS: Modified Allen's Test Pass; Site Drawn RIGHT RADIAL
[2025-09-09 05:14] LABS: Hematocrit 28.8 % (42.0-52.0); Hemoglobin 9.0 g/dL (14.0-18.0); Immature Granulocyte Percent A 3.1 % (0-0.5); Lymphocytes Absolute Auto 0.87 K/mm3 (0.9-3.2); Mean Corpuscular HGB Conc 31.3 g/dl (32-36); Mean Corpuscular Hemoglobin 30.8 pg (26-34); Mean Corpuscular Volume 98.6 fl (80-100); Nucleated Red Blood Cells Absolute Auto 0.000 K/mm3 (0.0-0.012); Nucleated Red Blood Cells Perc 0.0 % (0.0-0.2); Platelet Count Result 121 k/mm3 (150-375); Red Blood Count 2.92 M/mm3 (4.6-6.20); White Blood Count 15.4 K/mm3 (4.5-10.0)
[2025-09-09 05:35] LABS: Alanine Aminotransferase 28 U/L (6-50); Albumin Level 2.9 g/dL (3.5-5.1); Alkaline Phosphatase 113 U/L (38-126); Anion Gap 5 mmol/L (4-12); Aspartate Amino Transferase 79 U/L (17-59); Bilirubin,Total 1.2 mg/dL (0.2-1.3); Blood Urea Nitrogen 21 mg/dL (9-20); Calcium 7.9 mg/dL (8.4-10.2); Carbon Dioxide 30 mmol/L (22-30); Chloride 107 mmol/L (98-107); Estimated CRCL calculation 87 ml/min; Estimated Glomerular Filt Rate > 60; Glucose 95 mg/dL (65-110); Magnesium 1.9 mg/dL (1.6-2.3); Potassium 3.7 mmol/L (3.4-5.0); Sodium 142 mmol/L (137-145); Total Protein 4.8 g/dL (6.3-8.2)
[2025-09-09] MEDS: FENOFIBRATE 145 MG TABLET PO (08:57)
[2025-09-09] MEDS: METOPROLOL TARTRATE 25 MG TABLET PO ×2 (09:00→20:31)
[2025-09-09] MEDS: TAMSULOSIN HCL 0.4 MG CAPSULE PO (09:00)
[2025-09-09] MEDS: ARTIFICIAL TEARS OPHTH SOLN 15 ML BOTTLE 1 DROP EACH EYE (09:00)
[2025-09-09] MEDS: FUROSEMIDE INJ 40 MG/4 ML VIAL IV PUSH (09:00)
[2025-09-09] MEDS: PANTOPRAZOLE SODIUM IV 40 MG VIAL IV PUSH ×2 (09:00→20:34)
[2025-09-09] MEDS: KCL 40 MEQ/WATER 100 ML 100 ML 25 ML IVPB (09:01)
--- NOTE | 2025-09-09 09:50 | WPDINTPN ---
Progress Note: A&P Assessment and Plan (1) Septic shock: Code(s): A41.9 - Sepsis, unspecified organism; R65.21 - Severe sepsis with septic shock Status: Acute Assessment and Plan: 09/03/2025: Patient was transferred from medical floor to ICU where he was intubated, found to be hypotensive, received albumin -and IV fluid bolus, started on Levophed Off Levophed now. Off IV fluids now. Overall volume overloaded. -patient was on azithromycin, cefepime and vancomycin per Infectious Disease -09/03: Switched antibiotics to meropenem, vancomycin and micafungin -(completed a course of azithromycin) 09/09 now only on meropenem as per Infectious Disease -micafungin for balanitis per Infectious Disease -08/30: Blood cultures negative x2 -09/03: Blood cultures obtained and pending 09/04: Respiratory cultures from BAL pending (2) Acute respiratory failure: Code(s): J96.00 - Acute respiratory failure, unspecified whether with hypoxia or hypercapnia Status: Acute Assessment and Plan: Respiratory failure likely multifactorial secondary to pneumonia and pulmonary edema with underlying lung disease and lobectomy Patient is transferred from medical floor after being found hypoxic, hypotensive and less responsive/altered mental status -increasing O2 requirements on Airvo -09/03: Patient was intubated by ER physician in the ICU -currently on CMV mode of ventilation, peep of 5, 25% FiO2. -ABGs, chest x-ray and CT chest reviewed. -continue bronchodilator -09/03: Status post right thoracentesis this by ER physician, drained 600 mL yellow sticky fluid -09/04: Bronchoscopy performed by pulmonology, BAL cultures have been obtained and pending -appreciate pulmonology evaluation and recommendation 09/06: Place patient on SBT, tolerating well, will evaluate for extubation, on low-dose Precedex at this time 09/07 will give Lasix IV today and attempted weaning trial. 09/08 -chest x-ray ABG reviewed c patient was given Lasix and weaning trial was done. Patient was extubated has ABG in RSBI or acceptable. Patient has done well overall since then and is now on room air 09/09 on room air. Add incentive spirometry. Add PT OT. Continue diuretics. Continue bronchodilators. 09/03/2025: CT chest with contrast -IMPRESSION: 1. Significant decrease in lung volumes with prominent dependent atelectasis including partial collapse of the bilateral lower lobes. Superimposed pneumonia not excludable. 2. No significant change in small left and moderate-sized right pleural effusions. 3. Moderate amount of ascites in the upper abdomen. 4. Scattered sclerotic bone lesions consistent with known metastatic prostate cancer and with chronic pathologic fracture at T10. 09/02: IMPRESSION: Moderate loculated right pleural effusion and small left pleural effusion. Patchy infiltrates are present bilaterally. There is mediastinal lymphadenopathy. Sclerotic changes within the T9 vertebral body suggestive of metastasis. (3) Pleural effusion: Code(s): J90 - Pleural effusion, not elsewhere classified Status: Acute Assessment and Plan: 09/03: Thoracentesis perform a ER physician early hours with a removal of 600 mL in yellow sticky fluid -according to Light's criteria pleural protein/serum protein ratio<0.5, pleural LDH/serum LDH < 0.6. The effusion is likely a transudate -fluid gram stain did not show any organism, cultures are still pending -continue diuretic (4) Pneumonia: Code(s): J18.9 - Pneumonia, unspecified organism Status: Acute Assessment and Plan: Consolidation noted on CT scan of the chest -continue antibiotics as above -appreciate pulmonology evaluation and recommendations, -bronchoscopy done on 09/04 since patient is immunocompromised due to chemotherapy (5) Encephalopathy: Code(s): G93.40 - Encephalopathy, unspecified Status: Acute Assessment and Plan: Encephalopathy could be multifactorial, septic shock, hypotension, hypoxia Patient now extubated now sedation. He is AO x3 IMPRESSION: CT HEAD: 1. No acute intracranial findings. CTA NECK: 1. Motion artifact along carotid bulbs. Stenosis or even dissection not excluded. Recommend carotid ultrasound. CTA HEAD: 1. No large vessel arterial occlusive disease or other acute findings. 2. No aneurysms. (6) Anemia: Code(s): D64.9 - Anemia, unspecified Status: Acute Assessment and Plan: 09/03: Hemoglobin dropped to 6.9 this morning from 7.5. Transfused 1 unit of packed RBCs -hemoglobin has been stable and gradually improving -continue to monitor (7) Protein calorie malnutrition: Code(s): E46 - Unspecified protein-calorie malnutrition Status: Acute Assessment and Plan: Protein calorie malnutrition, BMI of 23.6 -likely moderate protein calorie malnutrition Consult speech for swallow evaluation and start diet depending on the results (8) Metastatic malignant neoplasm to prostate: Code(s): C79.82 - Secondary malignant neoplasm of genital organs Status: Acute Assessment and Plan: Patient has metastatic prostate cancer, being treated by Dr. Walsh with palliative chemotherapy (9) Candidal balano-posthitis: Code(s): B37.49 - Other urogenital candidiasis Status: Acute Assessment and Plan: Off micafungin now per Infectious Disease (10) COPD (chronic obstructive pulmonary disease): Code(s): J44.9 - Chronic obstructive pulmonary disease, unspecified Status: Acute Assessment and Plan: Continue DuoNebs p.r.n. Plan DVT prophylaxis: SCDs, Lovenox Stress ulcer prophylaxis: Protonix IV q.12 hours Nutrition: Consult speech for swallow evaluation Code Status: DNR Spoke to and updated patient's son at bedside answered all his questions. Incentive spirometry PT OT Transfer out of ICU today Subjective Date/time seen: 09/09/25 Patient was extubated yesterday after a successful weaning trial. Patient did well and wore BiPAP overnight. Although he is prefers not to wear it. He states that he felt better after receiving breathing treatment. He states he has cough is slightly productive. He denies any other complaints. Patient denies fever, chest pain, shortness of breath,, nausea vomiting, abdominal pain,, diarrhea, headache or constipation. Feels weak overall. All other systems were reviewed and were negative. He is not on any infusions. Last night he had sinus tachycardia and was given metoprolol and a small IV fluid bolus. Heart rate is down into 110s. Blood pressure is adequate. Exam Narrative: General: Ill-appearing elderly patient, intubated HEENT:? Pupils equal and reactive bilaterally. Sclera is clear, eyes are sunken, ETT in place Neck:? Supple Respiratory:? Coarse breath sounds bilaterally, rales auscultated bilaterally, no wheezing, adequate air entry otherwise Cardiac:? S1-S2 is normal, regular rate and rhythm Abdomen: Soft, nontender, non distended, hypoactive bowel sounds Extremities:? Bilateral pitting edema present Neuro:? Intubated, on Precedex infusion, opens his eyes and follows simple commands Skin:? Skin tears noted on the feet bilaterally, Psych:? Unable to assess at this time Objective Data Vital Signs Vital Signs: Vital Signs - 24 hr 09/08/25 10:00 09/08/25 10:00 09/08/25 10:00 Temperature Pulse Rate 127 H 127 H 127 H Respiratory Rate 13 13 Blood Pressure 111/57 L Pulse Oximetry 100 Oxygen Delivery Oxygen Flow Rate Fraction of Inspired Oxygen 09/08/25 10:00 09/08/25 10:46 09/08/25 11:00 Temperature Pulse Rate 127 H 119 H 127 H Respiratory Rate 16 13 Blood Pressure 111/57 L 111/57 L Pulse Oximetry 98 100 Oxygen Delivery Nasal Cannula Oxygen Flow Rate 2 Fraction of Inspired Oxygen 09/08/25 11:00 09/08/25 11:00 09/08/25 12:00 Temperature Pulse Rate 122 H 123 H 118 H Respiratory Rate 17 15 Blood Pressure 101/49 L Pulse Oximetry 100 Oxygen Delivery Nasal Cannula Oxygen Flow Rate 2 Fraction of Inspired Oxygen 09/08/25 12:00 09/08/25 12:00 09/08/25 12:00 Temperature Pulse Rate 118 H 118 H Respiratory Rate 15 Blood Pressure 103/69 Pulse Oximetry 100 Oxygen Delivery Oxygen Flow Rate Fraction of Inspired Oxygen 09/08/25 12:00 09/08/25 12:00 09/08/25 12:53 Temperature 36.3 C L Pulse Rate 118 H 119 H 113 H Respiratory Rate 17 14 Blood Pressure 98/51 L 99/52 L Pulse Oximetry 100 Oxygen Delivery Oxygen Flow Rate Fraction of Inspired Oxygen 09/08/25 13:00 09/08/25 13:00 09/08/25 13:00 Temperature Pulse Rate 115 H 120 H 120 H Respiratory Rate 15 21 H Blood Pressure 99/53 L Pulse Oximetry Oxygen Delivery Oxygen Flow Rate Fraction of Inspired Oxygen 09/08/25 13:58 09/08/25 14:00 09/08/25 14:00 Temperature Pulse Rate 123 H 121 H 121 H Respiratory Rate 17 Blood Pressure 109/61 Pulse Oximetry Oxygen Delivery Oxygen Flow Rate Fraction of Inspired Oxygen 09/08/25 14:00 09/08/25 14:00 09/08/25 14:06 Temperature Pulse Rate 121 H 121 H 119 H Respiratory Rate 17 17 16 Blood Pressure 109/60 Pulse Oximetry 99 Oxygen Delivery Oxygen Flow Rate Fraction of Inspired Oxygen 09/08/25 14:10 09/08/25 15:00 09/08/25 15:00 Temperature Pulse Rate 123 H 116 H 116 H Respiratory Rate 17 15 13 Blood Pressure 94/55 L Pulse Oximetry 98 98 Oxygen Delivery Nasal Cannula Oxygen Flow Rate 2 Fraction of Inspired Oxygen 09/08/25 15:00 09/08/25 16:00 09/08/25 16:00 Temperature Pulse Rate 116 H 120 H 120 H Respiratory Rate 15 Blood Pressure 94/55 L 101/62 Pulse Oximetry Oxygen Delivery Oxygen Flow Rate Fraction of Inspired Oxygen 09/08/25 16:00 09/08/25 16:00 09/08/25 16:00 Temperature Pulse Rate 120 H 117 H 117 H Respiratory Rate 15 15 Blood Pressure 101/62 Pulse Oximetry 98 98 Oxygen Delivery Nasal Cannula Oxygen Flow Rate 1 Fraction of Inspired Oxygen 25 09/08/25 17:00 09/08/25 17:00 09/08/25 17:00 Temperature Pulse Rate 117 H 126 H 122 H Respiratory Rate 15 15 Blood Pressure 101/62 108/61 Pulse Oximetry 98 Oxygen Delivery Oxygen Flow Rate Fraction of Inspired Oxygen 09/08/25 18:00 09/08/25 18:00 09/08/25 18:00 Temperature Pulse Rate 127 H 127 H 128 H Respiratory Rate 19 16 Blood Pressure 112/65 Pulse Oximetry 95 Oxygen Delivery Oxygen Flow Rate Fraction of Inspired Oxygen 09/08/25 18:00 09/08/25 19:00 09/08/25 20:00 Temperature 36.8 C Pulse Rate 122 H 128 H 132 H Respiratory Rate 16 18 Blood Pressure 111/60 107/60 102/65 Pulse Oximetry 93 95 Oxygen Delivery Oxygen Flow Rate Fraction of Inspired Oxygen 09/08/25 20:00 09/08/25 20:00 09/08/25 20:00 Temperature Pulse Rate 132 H 133 H Respiratory Rate Blood Pressure 102/65 Pulse Oximetry Oxygen Delivery Room Air Oxygen Flow Rate Fraction of Inspired Oxygen 09/08/25 20:06 09/08/25 20:10 09/08/25 20:15 Temperature Pulse Rate 134 H 134 H 130 H Respiratory Rate 20 20 16 Blood Pressure Pulse Oximetry 97 Oxygen Delivery Room Air Oxygen Flow Rate Fraction of Inspired Oxygen 21 09/08/25 21:00 09/08/25 22:00 09/08/25 22:00 Temperature 36.6 C Pulse Rate 135 H 135 H 135 H Respiratory Rate 16 22 H Blood Pressure 110/54 L 117/59 L Pulse Oximetry 93 94 Oxygen Delivery Oxygen Flow Rate Fraction of Inspired Oxygen 09/08/25 22:00 09/08/25 22:51 09/08/25 22:58 Temperature Pulse Rate 135 H 136 H 140 H Respiratory Rate 29 H Blood Pressure 117/59 L Pulse Oximetry 100 Oxygen Delivery BiPAP Oxygen Flow Rate Fraction of Inspired Oxygen 09/08/25 23:00 09/09/25 00:00 09/09/25 00:00 Temperature 36.9 C Pulse Rate 141 H 114 H Respiratory Rate 22 H 18 Blood Pressure 133/86 126/76 Pulse Oximetry 100 100 100 Oxygen Delivery BiPAP Oxygen Flow Rate Fraction of Inspired Oxygen 30 09/09/25 00:00 09/09/25 00:00 09/09/25 01:00 Temperature Pulse Rate 114 H 116 H 110 H Respiratory Rate 20 Blood Pressure 126/76 124/67 Pulse Oximetry 100 Oxygen Delivery Oxygen Flow Rate Fraction of Inspired Oxygen 09/09/25 01:52 09/09/25 01:55 09/09/25 02:00 Temperature Pulse Rate 110 H 108 H 110 H Respiratory Rate 18 Blood Pressure 130/75 Pulse Oximetry 100 Oxygen Delivery BiPAP Oxygen Flow Rate Fraction of Inspired Oxygen 09/09/25 02:00 09/09/25 02:00 09/09/25 03:00 Temperature 36.7 C Pulse Rate 110 H 110 H 113 H Respiratory Rate 18 18 Blood Pressure 130/75 140/87 Pulse Oximetry 100 100 Oxygen Delivery Oxygen Flow Rate Fraction of Inspired Oxygen 09/09/25 04:00 09/09/25 04:00 09/09/25 04:00 Temperature 36.6 C Pulse Rate 109 H 109 H Respiratory Rate 16 Blood Pressure 126/77 126/77 Pulse Oximetry 100 100 Oxygen Delivery Room Air Oxygen Flow Rate Fraction of Inspired Oxygen 09/09/25 04:00 09/09/25 05:00 09/09/25 05:12 Temperature Pulse Rate 110 H 115 H 111 H Respiratory Rate 12 26 H Blood Pressure 99/67 L Pulse Oximetry 95 100 Oxygen Delivery BiPAP Oxygen Flow Rate Fraction of Inspired Oxygen 09/09/25 05:23 09/09/25 06:00 09/09/25 06:00 Temperature 36.8 C Pulse Rate 113 H 116 H 116 H Respiratory Rate 20 Blood Pressure 117/68 115/67 Pulse Oximetry 94 Oxygen Delivery Oxygen Flow Rate Fraction of Inspired Oxygen 09/09/25 07:00 09/09/25 07:36 09/09/25 07:37 Temperature 36.7 C Pulse Rate 112 H Respiratory Rate 10 L Blood Pressure 133/64 Pulse Oximetry 98 95 95 Oxygen Delivery Room Air Room Air Oxygen Flow Rate Fraction of Inspired Oxygen 09/09/25 07:41 09/09/25 07:47 09/09/25 08:00 Temperature Pulse Rate 115 H 113 H 122 H Respiratory Rate 15 14 18 Blood Pressure 123/66 Pulse Oximetry 97 Oxygen Delivery Oxygen Flow Rate Fraction of Inspired Oxygen 09/09/25 09:00 Temperature Pulse Rate 117 H Respiratory Rate Blood Pressure Pulse Oximetry Oxygen Delivery Oxygen Flow Rate Fraction of Inspired Oxygen Intake/Output Intake/Output: Intake & Output 09/06/25 09/07/25 09/08/25 09/09/25 23:59 23:59 23:59 23:59 Intake Total 1693.2 1149.5 1137.8 620 Output Total 1200 5 3875 250 Balance 493.2 -875.5 -2737.2 370 Meds/Results Medications: Active Medications Generic Name Dose Route Start Last Admin Trade Name Freq PRN Reason Stop Dose Admin Acetaminophen 650 mg 08/30/25 10:58 Acetaminophen 325 Mg Tablet PO Q4H PRN Mild Pain (1-3) or Fever Albuterol/Ipratropium 3 ml 09/09/25 08:08 Ipratropium 0.5 Mg/Albuterol Sulfate 2.5 Mg (Base) Ampul.Neb 3 Ml INHALATION Q6HRT PRN wheezing Artificial Tears 1 drop 09/09/25 08:06 09/09/25 09:00 Artificial Tears Ophth Soln 15 Ml Bottle EACH EYE 1 drop QID PRN Administration Dry Eye(s) Lidocaine HCl 30 ml/ Al Hydrox 0 ml 08/30/25 17:00 09/03/25 07:00 /Mg Hydrox/Simethicone 30 ml/ PO Not Given Diphenhydramine HCl 75 mg Q4HWA DARIEN On Hold: 09/03/25 07:00 Dextrose 12.5 gm 09/03/25 10:06 Dextrose 50% 25 Gm/50 Ml Syringe IV PUSH PRN PRN Hypoglycemia Protocol Fenofibrate 145 mg 09/01/25 09:00 09/09/25 08:57 Fenofibrate 145 Mg Tablet PO 145 mg QAM DARIEN Administration Furosemide 40 mg 09/09/25 09:00 09/09/25 09:00 Furosemide Inj 40 Mg/4 Ml Vial IV PUSH 40 mg DAILY DARIEN Administration Glucagon 1 mg 09/03/25 10:06 Glucagon For Inj 1 Mg Vial IM PRN PRN Hypoglycemia Protocol Glucose 15 gm 09/03/25 10:06 Glucose Oral Gel 15 Gm Of Glucse In 37.5 Gm Tube PO PRN PRN Hypoglycemia Protocol Heparin Sodium (Beef Lung) 50 units 09/03/25 09:00 09/09/25 09:00 Heparin Flush 50 Units/5 Ml Syringe IV PUSH 50 units QAM DARIEN Administration Heparin Sodium (Beef Lung) 50 units 09/03/25 07:03 Heparin Flush 50 Units/5 Ml Syringe IV PUSH PRN PRN after intermittent infusion Heparin Sodium (Beef Lung) 50 units 09/03/25 07:03 Heparin Flush 50 Units/5 Ml Syringe IV PUSH PRN PRN after blood draws Heparin Sodium (Porcine) 500 units 09/03/25 07:03 Heparin Sodium Lock Flush 500 Units/5 Ml Syringe IV PUSH PRN PRN see comments below Dextrose 1,000 mls @ 100 mls/hr 09/03/25 10:06 Dextrose 5% 1,000 Ml IVPB PRN PRN Hypoglycemia Protocol Meropenem 1 gm/ Sodium 100 mls @ 200 mls/hr 09/03/25 11:00 09/09/25 04:08 Chloride IVPB Infused Q8H DARIEN Infusion Potassium Chloride 100 mls @ 25 mls/hr 09/09/25 08:10 09/09/25 09:01 Kcl 40 Meq/Water 100 Ml IVPB 09/09/25 12:09 25 mls/hr ONCE ONE Administration Insulin Aspart 2 - 5 units 09/03/25 10:10 09/09/25 09:00 Insulin Aspart (*Bkc) 100 Units/Ml SUB-Q Not Given Q4HR [facility] Protocol Lidocaine HCl 1 applic 08/30/25 20:34 08/31/25 09:34 Lidocaine 4% Soln 50 Ml Btl TOPICAL 1 applic PRN PRN Administration Pain Loratadine 10 mg 08/31/25 21:00 09/08/25 08:09 Loratadine 10 Mg Tablet PO 10 mg QAM DARIEN Administration Metoprolol Tartrate 25 mg 09/09/25 09:00 09/09/25 09:00 Metoprolol Tartrate 25 Mg Tablet PO 25 mg Q12HR DARIEN Administration Pantoprazole Sodium 40 mg 09/03/25 21:00 09/09/25 09:00 Pantoprazole Sodium Iv 40 Mg Vial IV PUSH 40 mg Q12HR DARIEN Administration Sodium Chloride 10 ml 09/03/25 14:00 09/09/25 04:57 Central Line Flush IV PUSH 10 ml Q8HR DARIEN Administration Tamsulosin HCl 0.4 mg 09/01/25 09:00 09/09/25 09:00 Tamsulosin Hcl 0.4 Mg Capsule PO 0.4 mg DAILY DARIEN Administration Vitamin D 125 mcg 09/01/25 09:00 09/08/25 08:09 Cholecalciferol (Vitamin D3) 125 Mcg (5,000 Units) Tablet PO 125 mcg DAILY DARIEN Administration Radiology Results: ITS Impressions Head CT 09/03/25 06:23 IMPRESSION: 1. No acute intracranial findings. Head/Neck CTA 09/03/25 06:30 IMPRESSION: CT HEAD: 1. No acute intracranial findings. CTA NECK: 1. Motion artifact along carotid bulbs. Stenosis or even dissection not excluded. Recommend carotid ultrasound. CTA HEAD: 1. No large vessel arterial occlusive disease or other acute findings. 2. No aneurysms. Chest CT 09/03/25 07:26 IMPRESSION: 1. Significant decrease in lung volumes with prominent dependent atelectasis including partial collapse of the bilateral lower lobes. Superimposed pneumonia not excludable. 2. No significant change in small left and moderate-sized right pleural effusions. 3. Moderate amount of ascites in the upper abdomen. 4. Scattered sclerotic bone lesions consistent with known metastatic prostate cancer and with chronic pathologic fracture at T10. Carotid Doppler Study 09/03/25 17:25 IMPRESSION: 1. >=70% (but less than near occlusion) stenosis in the right internal carotid artery. 2. >=70% (but less than near occlusion) stenosis in the left internal carotid artery. 3. The degree of stenosis indicated by the increased velocities is greater than would be expected given the amount of calcified atherosclerotic plaque evident on the prior CT angiogram. This suggests that the lower density linear filling defects at the bilateral carotid bulbs seen on the prior CT angiogram are not artifactual and likely to represent small dissection flaps. Abdomen X-Ray 09/04/25 07:07 IMPRESSION: 1: NG tube tip in the stomach. 2: Bibasilar airspace disease may represent edema or pneumonia. Chest X-Ray 09/09/25 08:06 Impression: Basilar probable pneumonia. The findings appear slightly improved. Labs Labs: Laboratory Results - last 24 hr 09/08/25 09/08/25 09/08/25 10:17 11:55 16:19 WBC RBC Hgb Hct MCV MCH MCHC RDW Plt Count MPV Immature Gran % (Auto) Neut % (Auto) Lymph % (Auto) [place] % (Auto) Eos % (Auto) Baso % (Auto) Lymph # (Auto) [place] # (Auto) Eos # (Auto) Baso # (Auto) Abs Immat Gran (auto) Absolute Neuts (auto) Absolute Nucleated RBC Nucleated RBC % Puncture Site Right brachial ABG pH 7.517 H* ABG pCO2 36.2 ABG pO2 83.5 ABG PO2/FiO2 Ratio 3.34 ABG HCO3 28.7 H ABG O2 Saturation 97.2 ABG O2 Content 12.9 L ABG Base Excess 5.5 A-a Gradient 51.8 Oxyhemoglobin 95.5 Carboxyhemoglobin Methemoglobin Reduced Hemoglobin Total Hemoglobin 9.5 L O2 Delivery Device Ventilator O2 Liters/Min Not Reportable Minute Volume Not Reportable Vent Rate Not Reportable Vent Mode Pressure support FiO2 25 Expiratory Pressure Tidal Volume Not Reportable PEEP 5 Inspiratory Pressure Peak Inspir Pressure Not Reportable Pressure Support 5 Sodium Potassium Chloride Carbon Dioxide Anion Gap BUN Creatinine Estim Creat Clear Calc Estimated GFR Glucose POC Capillary Glucose 133 H 115 H Calcium Phosphorus Magnesium Total Bilirubin AST ALT Alkaline Phosphatase Total Protein Albumin 09/08/25 09/09/25 09/09/25 20:19 00:03 04:22 WBC RBC Hgb Hct MCV MCH MCHC RDW Plt Count MPV Immature Gran % (Auto) Neut % (Auto) Lymph % (Auto) [place] % (Auto) Eos % (Auto) Baso % (Auto) Lymph # (Auto) [place] # (Auto) Eos # (Auto) Baso # (Auto) Abs Immat Gran (auto) Absolute Neuts (auto) Absolute Nucleated RBC Nucleated RBC % Puncture Site Right radial ABG pH 7.427 ABG pCO2 40.4 ABG pO2 132.2 H ABG PO2/FiO2 Ratio 4.41 ABG HCO3 26.0 ABG O2 Saturation 98.7 ABG O2 Content 18.2 ABG Base Excess 1.6 A-a Gradient 34.2 Oxyhemoglobin 97.6 Carboxyhemoglobin 1.0 Methemoglobin 0.1 Reduced Hemoglobin 1.3 Total Hemoglobin 13.1 O2 Delivery Device Bipap O2 Liters/Min Not Reportable Minute Volume Vent Rate Vent Mode FiO2 30 Expiratory Pressure 6 Tidal Volume PEEP Inspiratory Pressure 12 Peak Inspir Pressure Pressure Support Sodium Potassium Chloride Carbon Dioxide Anion Gap BUN Creatinine Estim Creat Clear Calc Estimated GFR Glucose POC Capillary Glucose 104 101 Calcium Phosphorus Magnesium Total Bilirubin AST ALT Alkaline Phosphatase Total Protein Albumin 09/09/25 09/09/25 09/09/25 04:51 04:57 08:48 WBC 15.4 H RBC 2.92 L Hgb 9.0 L Hct 28.8 L MCV 98.6 MCH 30.8 MCHC 31.3 L RDW 19.9 H Plt Count 121 L MPV 11.5 H Immature Gran % (Auto) 3.1 H Neut % (Auto) 81.7 H Lymph % (Auto) 5.7 L [place] % (Auto) 9.2 H Eos % (Auto) 0.0 Baso % (Auto) 0.3 Lymph # (Auto) 0.87 L [place] # (Auto) 1.4 H Eos # (Auto) 0.0 Baso # (Auto) 0.1 Abs Immat Gran (auto) 0.48 H Absolute Neuts (auto) 12.6 H Absolute Nucleated RBC 0.000 Nucleated RBC % 0.0 Puncture Site ABG pH ABG pCO2 ABG pO2 ABG PO2/FiO2 Ratio ABG HCO3 ABG O2 Saturation ABG O2 Content ABG Base Excess A-a Gradient Oxyhemoglobin Carboxyhemoglobin Methemoglobin Reduced Hemoglobin Total Hemoglobin O2 Delivery Device O2 Liters/Min Minute Volume Vent Rate Vent Mode FiO2 Expiratory Pressure Tidal Volume PEEP Inspiratory Pressure Peak Inspir Pressure Pressure Support Sodium 142 Potassium 3.7 Chloride 107 Carbon Dioxide 30 Anion Gap 5 BUN 21 H Creatinine 0.60 L Estim Creat Clear Calc 87 Estimated GFR > 60 Glucose 95 POC Capillary Glucose 89 88 Calcium 7.9 L Phosphorus 2.5 Magnesium 1.9 Total Bilirubin 1.2 AST 79 H ALT 28 Alkaline Phosphatase 113 Total Protein 4.8 L Albumin 2.9 L Quality VTE Prophylaxis VTE prophylaxis: mechanical ordered
--- NOTE | 2025-09-09 11:39 | PCSTNOTE ---
Please refer to the Bedside Swallow Evaluation in the EMR. Please note, silent aspiration cannot be ruled out at bedside. The above pt, who was recently extubated after a 5-day intubation, was seen for a BSE. PMH includes pneumonia, lobectomy, prostate CA,& COPD. Pt was positioned upright in the bed with a pillow propping his head and even tilting it slightly forward for testing. Pt's son was present who assisted pt's positioning and provided encouragement to the pt. Pt was alert but appeared tired. Vocal quality was soft but clear. Pt stated he is lactose intolerant and preferred to not eat pudding. Pt was noted to be edentulous. Son stated his full set of dentures is at home but texted his sister to bring in for future eating. No gross oral motor weakness was noted. The pt was presented with an ice chip, applesauce, in small then gradually larger amounts (no amount exceeded a tsp amount), mildly thick liquids via a spoon, & moderately thick liquids in tsp amounts, then an uncontrolled amount via a cup. The oral stages appeared intact, but lingual pumping was exhibited; no leakage, pocketing, or residual was noted. During the pharyngeal stage, the swallow reflex appeared timely, but laryngeal elevation appeared weak and reduced. Pt was noted to dry swallow 2-3 extra times after each trial, possibly indicative of pharyngeal residue. Coughing occurred after the ice chip trial, moderately thick liquid when taken via the cup, and after the 5ml trial of mildly thick liquid. Impression: dysphagia is suspected as described above; suspect aspiration of liquids at this time. Recommendation: pureeds through today and tonight with ice chips; no liquids. ST to retest tomorrow and determine need and tolerance for an MBS. Son (& ADMISSIONS MANAGER RN) thought pt was too weak and would only fail MBS if completed at this time.
--- NOTE | 2025-09-09 12:00 | PCFNICU ---
ICU Rounding Note: Pt current nutrition is NPO. Last recorded weight is 77.2 kg, up from 65 kg on admit. Bowel Motility: Last reported BM 09/09 Labs Reviewed:Cr 0.60, BUN 21, Alb 2.9, Hct 28.8, Hgb 9.0 Meds Noted: Vancomycin,Protonix, Lasix Skin: WNL Additional Notes:Patient had bedside swallow today, recommending ice chips; no liquids. ST to retest tomorrow and determine need and tolerance for an MBS. Following daily in ICU rounds. Monitor intake, wt, labs. Follow up every 3 days.
--- NOTE | 2025-09-09 13:07 | PC.NURSE ---
This patient, Gume Roberson Jr., was transferred to [[id number]] on 09/09/25 at 1307. Personal belongings sent with patient. Report given to [NAHUM Mckeon @ 1300 ]. Appropriate documentation sent with patient. Family at bedside
[2025-09-09] MEDS: ACETAMINOPHEN 325 MG TABLET 650 MG PO (15:33)
--- NOTE | 2025-09-09 16:08 | P.PNIM_ITS ---
Progress Note: A&P Assessment and Plan (1) Septic shock: Code(s): A41.9 - Sepsis, unspecified organism; R65.21 - Severe sepsis with septic shock Status: Acute Assessment and Plan: 09/03/2025: Patient was transferred from medical floor to ICU where he was intubated, found to be hypotensive, received albumin -and IV fluid bolus, started on Levophed -patient does have a port, will use that for the pressors -wean Levophed to maintain mean arterial MAP > 65 mmHg, SBP > 100 mmHg -patient was on azithromycin, cefepime and vancomycin per Infectious Disease -09/03: Switch cefepime to meropenem, also discussed with Infectious Disease and micafungin was added -currently on meropenem, vancomycin micafungin, (completed a course of azithromycin) -micafungin for balanitis per Infectious Disease -08/30: Blood cultures negative x2 -09/03: Blood cultures obtained and pending (2) Acute respiratory failure: Code(s): J96.00 - Acute respiratory failure, unspecified whether with hypoxia or hypercapnia Status: Acute Assessment and Plan: Patient is transferred from medical floor after being found hypoxic, hypotensive and less responsive/altered mental status -increasing O2 requirements on Airvo -09/03: Patient was intubated by ER physician in the ICU -currently on CMV mode of ventilation, peep of 5, 35% FiO2. -ABGs, chest x-ray and CT chest reviewed. -continue bronchodilator -09/03: Status post right thoracentesis this by ER physician, drained 600 mL yellow sticky fluid 09/03/2025: CT chest with contrast -IMPRESSION: 1. Significant decrease in lung volumes with prominent dependent atelectasis including partial collapse of the bilateral lower lobes. Superimposed pneumonia not excludable. 2. No significant change in small left and moderate-sized right pleural effusions. 3. Moderate amount of ascites in the upper abdomen. 4. Scattered sclerotic bone lesions consistent with known metastatic prostate cancer and with chronic pathologic fracture at T10. 09/02: IMPRESSION: Moderate loculated right pleural effusion and small left pleural effusion. Patchy infiltrates are present bilaterally. There is mediastinal lymphadenopathy. Sclerotic changes within the T9 vertebral body suggestive of metastasis. (3) Pleural effusion: Code(s): J90 - Pleural effusion, not elsewhere classified Status: Acute Assessment and Plan: 09/03: Thoracentesis perform a ER physician early hours with a removal of 600 mL in yellow sticky fluid -pleural fluid LDH, protein are pending, -fluid gram stain did not show any organism -according the hospitalist, pleural fluid looked like an exudate. Will confirm with pleural fluid studies -continue antibiotics as above (4) Pneumonia: Code(s): J18.9 - Pneumonia, unspecified organism Status: Acute Assessment and Plan: Consolidation noted on CT scan of the chest -continue antibiotics as above -appreciate pulmonology evaluation and recommendations, thoracentesis scheduled for today, 09/04 (5) Encephalopathy: Code(s): G93.40 - Encephalopathy, unspecified Status: Acute Assessment and Plan: Encephalopathy could be multifactorial, septic shock, hypotension, hypoxia -currently intubated, not on any sedation. -will maintain Euthermia, adequate blood pressures, adequate oxygenation -09/03: patient did wake up and follows simple commands IMPRESSION: CT HEAD: 1. No acute intracranial findings. CTA NECK: 1. Motion artifact along carotid bulbs. Stenosis or even dissection not excluded. Recommend carotid ultrasound. CTA HEAD: 1. No large vessel arterial occlusive disease or other acute findings. 2. No aneurysms. (6) Coagulopathy: Code(s): D68.9 - Coagulation defect, unspecified Status: Acute Assessment and Plan: PTT elevated, continue to monitor, patient not on any anticoagulation at this time (7) Anemia: Code(s): D64.9 - Anemia, unspecified Status: Acute Assessment and Plan: 09/03: Hemoglobin dropped to 6.9 this morning from 7.5. Transfused 1 unit of packed RBCs -monitor H&H (8) Protein calorie malnutrition: Code(s): E46 - Unspecified protein-calorie malnutrition Status: Acute Assessment and Plan: Protein calorie malnutrition, BMI of 23.6 -likely moderate protein calorie malnutrition -will start trickle tube feeds -phosphorus was repleted (9) Metastatic malignant neoplasm to prostate: Code(s): C79.82 - Secondary malignant neoplasm of genital organs Status: Acute Assessment and Plan: Patient has metastatic prostate cancer, being treated by Dr. Walsh with palliative chemotherapy (10) Candidal balano-posthitis: Code(s): B37.49 - Other urogenital candidiasis Status: Acute Assessment and Plan: Continue micafungin (11) COPD (chronic obstructive pulmonary disease): Code(s): J44.9 - Chronic obstructive pulmonary disease, unspecified Status: Acute Assessment and Plan: Continue DuoNebs, on mechanical ventilation Plan patient with metastatic prostate cancer presented with weakness and fever, with neutropenia 2/2 chemotherapy, initially patient was admitted on medical floor, his symptoms worsen patient was transferred to ICU and currently intubated, patient is found to have pneumonia, patient is being treated meropenem, and vancomycin, patient is also has candidal balano-posthitis and being treated with fluconazole, patient neutropenia has resolved, patient is by senior applications architect, 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 on 09/08 patient clinical symptoms were improving, as well CXR and his ABG, patient was given SBT and was successful and was extubated, patient is now in IMU, stats doing better now o RA, patient remains clinically stable. patient will swallow study tomorrow will follow up. Subjective Date/time seen: 09/09/25 16:08 Interval history: presented to the with Gen weakness and fever H&P-Narrative: 75yo M with Prostate ca on Chemo presented to [facility] Er with generalized weakness. patinet noted his appetite has been very poor the last week mostly due to oral pain. Otherwise noted he was recently diagnosed of yeast balanitis by his PCP and was placed on medication however no respite from the symtptoms . Otherwise denies any chest pain, SOB, abd pain, diarrhea or focal symptoms. Fever noted at home ER evaluation notable for possible 2, temperature 98.6?, blood pressure 130/46, saturating 94% on room air. Labs notable for WBC 0.7, hemoglobin 7.9, platelets 112, sodium 129, MRSA negative. Chest x-ray showed a possible pneumonia. patient with metastatic prostate cancer presented with weakness and fever, with neutropenia 2/2 chemotherapy, initially patient was admitted on medical floor, his symptoms worsen patient was transferred to ICU and currently intubated, patient is found to have pneumonia, patient is being treated meropenem, and vancomycin, patient is also has candidal balano-posthitis and being treated with fluconazole, patient neutropenia has resolved, patient is by senior applications architect, 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 on 09/08 patient clinical symptoms were improving, as well CXR and his ABG, patient was given SBT and was successful and was extubated, patient is now in IMU, stats doi ng better now o RA, patient remains clinically stable. patient will swallow study tomorrow will follow up. Review of Systems Review of Systems: ROS unobtainable: Yes unobtainable due to medical condition Exam Narrative: Patient is comfortable, NAD HEENT: eyes are clear and none icteric LUNGS:CTA HEART: RR S1S2 ABD: BS+, Soft and nontender Lower extremities: no edema SKIN: nonjaundiced Neuro: Still sedated Objective Data Vital Signs Vital Signs: Vital Signs - 24 hr 09/08/25 17:00 09/08/25 17:00 09/08/25 17:00 Temperature Pulse Rate 117 H 126 H 122 H Respiratory Rate 15 15 Blood Pressure 101/62 108/61 Pulse Oximetry 98 Oxygen Delivery Fraction of Inspired Oxygen 09/08/25 18:00 09/08/25 18:00 09/08/25 18:00 Temperature Pulse Rate 127 H 127 H 128 H Respiratory Rate 19 16 Blood Pressure 112/65 Pulse Oximetry 95 Oxygen Delivery Fraction of Inspired Oxygen 09/08/25 18:00 09/08/25 19:00 09/08/25 20:00 Temperature 36.8 C Pulse Rate 122 H 128 H 132 H Respiratory Rate 16 18 Blood Pressure 111/60 107/60 102/65 Pulse Oximetry 93 95 Oxygen Delivery Fraction of Inspired Oxygen 09/08/25 20:00 09/08/25 20:00 09/08/25 20:00 Temperature Pulse Rate 132 H 133 H Respiratory Rate Blood Pressure 102/65 Pulse Oximetry Oxygen Delivery Room Air Fraction of Inspired Oxygen 09/08/25 20:06 09/08/25 20:10 09/08/25 20:15 Temperature Pulse Rate 134 H 134 H 130 H Respiratory Rate 20 20 16 Blood Pressure Pulse Oximetry 97 Oxygen Delivery Room Air Fraction of Inspired Oxygen 21 09/08/25 21:00 09/08/25 22:00 09/08/25 22:00 Temperature 36.6 C Pulse Rate 135 H 135 H 135 H Respiratory Rate 16 22 H Blood Pressure 110/54 L 117/59 L Pulse Oximetry 93 94 Oxygen Delivery Fraction of Inspired Oxygen 09/08/25 22:00 09/08/25 22:51 09/08/25 22:58 Temperature Pulse Rate 135 H 136 H 140 H Respiratory Rate 29 H Blood Pressure 117/59 L Pulse Oximetry 100 Oxygen Delivery BiPAP Fraction of Inspired Oxygen 09/08/25 23:00 09/09/25 00:00 09/09/25 00:00 Temperature 36.9 C Pulse Rate 141 H 114 H Respiratory Rate 22 H 18 Blood Pressure 133/86 126/76 Pulse Oximetry 100 100 100 Oxygen Delivery BiPAP Fraction of Inspired Oxygen 30 09/09/25 00:00 09/09/25 00:00 09/09/25 01:00 Temperature Pulse Rate 114 H 116 H 110 H Respiratory Rate 20 Blood Pressure 126/76 124/67 Pulse Oximetry 100 Oxygen Delivery Fraction of Inspired Oxygen 09/09/25 01:52 09/09/25 01:55 09/09/25 02:00 Temperature Pulse Rate 110 H 108 H 110 H Respiratory Rate 18 Blood Pressure 130/75 Pulse Oximetry 100 Oxygen Delivery BiPAP Fraction of Inspired Oxygen 09/09/25 02:00 09/09/25 02:00 09/09/25 03:00 Temperature 36.7 C Pulse Rate 110 H 110 H 113 H Respiratory Rate 18 18 Blood Pressure 130/75 140/87 Pulse Oximetry 100 100 Oxygen Delivery Fraction of Inspired Oxygen 09/09/25 04:00 09/09/25 04:00 09/09/25 04:00 Temperature 36.6 C Pulse Rate 109 H 109 H Respiratory Rate 16 Blood Pressure 126/77 126/77 Pulse Oximetry 100 100 Oxygen Delivery Room Air Fraction of Inspired Oxygen 09/09/25 04:00 09/09/25 05:00 09/09/25 05:12 Temperature Pulse Rate 110 H 115 H 111 H Respiratory Rate 12 26 H Blood Pressure 99/67 L Pulse Oximetry 95 100 Oxygen Delivery BiPAP Fraction of Inspired Oxygen 09/09/25 05:23 09/09/25 06:00 09/09/25 06:00 Temperature 36.8 C Pulse Rate 113 H 116 H 116 H Respiratory Rate 20 Blood Pressure 117/68 115/67 Pulse Oximetry 94 Oxygen Delivery Fraction of Inspired Oxygen 09/09/25 07:00 09/09/25 07:36 09/09/25 07:37 Temperature 36.7 C Pulse Rate 112 H Respiratory Rate 10 L Blood Pressure 133/64 Pulse Oximetry 98 95 95 Oxygen Delivery Room Air Room Air Fraction of Inspired Oxygen 09/09/25 07:41 09/09/25 07:47 09/09/25 08:00 Temperature Pulse Rate 115 H 113 H 122 H Respiratory Rate 15 14 18 Blood Pressure 123/66 Pulse Oximetry 97 Oxygen Delivery Fraction of Inspired Oxygen 09/09/25 08:00 09/09/25 08:00 09/09/25 09:00 Temperature Pulse Rate 117 H 120 H 117 H Respiratory Rate 18 Blood Pressure Pulse Oximetry 97 Oxygen Delivery Room Air Fraction of Inspired Oxygen 09/09/25 10:00 09/09/25 12:00 09/09/25 12:00 Temperature 36.6 C Pulse Rate 110 H 103 H 103 H Respiratory Rate 16 16 Blood Pressure 107/65 Pulse Oximetry 97 97 Oxygen Delivery Room Air Fraction of Inspired Oxygen 09/09/25 12:00 09/09/25 12:00 09/09/25 14:00 Temperature Pulse Rate 100 106 H Respiratory Rate Blood Pressure Pulse Oximetry Oxygen Delivery Room Air Fraction of Inspired Oxygen 09/09/25 15:59 Temperature 36.7 C Pulse Rate 111 H Respiratory Rate 18 Blood Pressure 124/60 Pulse Oximetry 97 Oxygen Delivery Fraction of Inspired Oxygen Intake/Output Intake/Output: Intake & Output 09/06/25 09/07/25 09/08/25 09/09/25 23:59 23:59 23:59 23:59 Intake Total 1693.2 1149.5 1137.8 820 Output Total 1200 2025 3875 1350 Balance 493.2 -875.5 -2737.2 -530 Meds/Results Medications: Active Medications Generic Name Dose Route Start Last Admin Trade Name Freq PRN Reason Stop Dose Admin Acetaminophen 650 mg 08/30/25 10:58 09/09/25 15:33 Acetaminophen 325 Mg Tablet PO 650 mg Q4H PRN Administration Mild Pain (1-3) or Fever Albuterol/Ipratropium 3 ml 09/09/25 08:08 Ipratropium 0.5 Mg/Albuterol Sulfate 2.5 Mg (Base) Ampul.Neb 3 Ml INHALATION Q6HRT PRN wheezing Artificial Tears 1 drop 09/09/25 08:06 09/09/25 09:00 Artificial Tears Ophth Soln 15 Ml Bottle EACH EYE 1 drop QID PRN Administration Dry Eye(s) Lidocaine HCl 30 ml/ Al Hydrox 0 ml 08/30/25 17:00 09/03/25 07:00 /Mg Hydrox/Simethicone 30 ml/ PO Not Given Diphenhydramine HCl 75 mg Q4HWA DARIEN On Hold: 09/03/25 07:00 Cyanocobalamin 500 mcg 09/10/25 09:00 Cyanocobalamin 500 Mcg Tablet PO DAILY DARIEN Dextrose 12.5 gm 09/03/25 10:06 Dextrose 50% 25 Gm/50 Ml Syringe IV PUSH PRN PRN Hypoglycemia Protocol Fenofibrate 145 mg 09/01/25 09:00 09/09/25 08:57 Fenofibrate 145 Mg Tablet PO 145 mg QAM DARIEN Administration Ferrous Sulfate 325 mg 09/10/25 09:00 Ferrous Sulfate 325 Mg Tablet PO 10/10/25 08:59 DAILY DARIEN Folic Acid 0.4 mg 09/10/25 09:00 Folic Acid 0.4 Mg Tablet PO 10/10/25 08:59 DAILY DARIEN Furosemide 40 mg 09/09/25 09:00 09/09/25 09:00 Furosemide Inj 40 Mg/4 Ml Vial IV PUSH 40 mg DAILY DARIEN Administration Glucagon 1 mg 09/03/25 10:06 Glucagon For Inj 1 Mg Vial IM PRN PRN Hypoglycemia Protocol Glucose 15 gm 09/03/25 10:06 Glucose Oral Gel 15 Gm Of Glucse In 37.5 Gm Tube PO PRN PRN Hypoglycemia Protocol Heparin Sodium (Beef Lung) 50 units 09/03/25 09:00 09/09/25 09:00 Heparin Flush 50 Units/5 Ml Syringe IV PUSH 50 units QAM DARIEN Administration Heparin Sodium (Beef Lung) 50 units 09/03/25 07:03 Heparin Flush 50 Units/5 Ml Syringe IV PUSH PRN PRN after intermittent infusion Heparin Sodium (Beef Lung) 50 units 09/03/25 07:03 Heparin Flush 50 Units/5 Ml Syringe IV PUSH PRN PRN after blood draws Heparin Sodium (Porcine) 500 units 09/03/25 07:03 Heparin Sodium Lock Flush 500 Units/5 Ml Syringe IV PUSH PRN PRN see comments below Dextrose 1,000 mls @ 100 mls/hr 09/03/25 10:06 Dextrose 5% 1,000 Ml IVPB PRN PRN Hypoglycemia Protocol Meropenem 1 gm/ Sodium 100 mls @ 200 mls/hr 09/03/25 11:00 09/09/25 13:24 Chloride IVPB Infused Q8H DARIEN Infusion Insulin Aspart 2 - 5 units 09/03/25 10:10 09/09/25 14:29 Insulin Aspart (*Bkc) 100 Units/Ml SUB-Q Not Given Q4HR COUNTS INCLUDE 234 BEDS AT THE [facility] Protocol Lidocaine HCl 1 applic 08/30/25 20:34 08/31/25 09:34 Lidocaine 4% Soln 50 Ml Btl TOPICAL 1 applic PRN PRN Administration Pain Lidocaine/Prilocaine 1 each 09/09/25 14:12 Lidocaine/Prilocaine Cream 2.5-2.5% Tube TOPICAL DAILY PRN Pain Loratadine 10 mg 08/31/25 21:00 09/09/25 11:40 Loratadine 10 Mg Tablet PO Not Given QAM COUNTS INCLUDE 234 BEDS AT THE [facility] Metoprolol Tartrate 25 mg 09/09/25 09:00 09/09/25 09:00 Metoprolol Tartrate 25 Mg Tablet PO 25 mg Q12HR DARIEN Administration Miconazole Nitrate 1 applic 09/09/25 17:00 Miconazole Nitrate 2% Cream 30 Gm Tube TOPICAL 10/09/25 16:59 BID COUNTS INCLUDE 234 BEDS AT THE [facility] Miscellaneous Information 0 each 09/09/25 00:01 Nonformulary Drug (Mesalamine [Lialda] 1.2 Gram Tablet,Delayed Release (D r/Ec)) Can Patien XX 10/09/25 00:00 CLARIFY COUNTS INCLUDE 234 BEDS AT THE [facility] Miscellaneous Information 0 each 09/09/25 00:01 Nonformulary Drug (Abiraterone 250 Mg Tablet) = Can Patient Use Home Med? XX 10/09/25 00:00 CLARIFY COUNTS INCLUDE 234 BEDS AT THE [facility] Multivitamins Therapeutic 1 tablet 09/10/25 09:00 Multivitamins Therapeutic Tab (*Bkc) PO DAILY DARIEN Mupirocin 1 applic 09/09/25 17:00 Mupirocin 2% Oint 22 Gm Tube TOPICAL BID COUNTS INCLUDE 234 BEDS AT THE [facility] Non-Formulary Medication 1,000 mg 09/10/25 09:00 Abiraterone PO 10/10/25 08:59 DAILY COUNTS INCLUDE 234 BEDS AT THE [facility] Non-Formulary Medication 2.4 gm 09/10/25 09:00 Mesalamine [Lialda] PO 10/10/25 08:59 DAILY COUNTS INCLUDE 234 BEDS AT THE [facility] Ondansetron HCl 8 mg 09/09/25 14:12 Ondansetron Hcl Odt 4 Mg Tablet PO Q8-12H PRN nausea and vomiting Pantoprazole Sodium 40 mg 09/03/25 21:00 09/09/25 09:00 Pantoprazole Sodium Iv 40 Mg Vial IV PUSH 40 mg Q12HR DARIEN Administration Prednisone 5 mg 09/09/25 21:00 Prednisone 5 Mg Tablet PO Q12HR DARIEN Simvastatin 20 mg 09/09/25 21:00 Simvastatin 20 Mg Tablet PO HS DARIEN Sodium Chloride 10 ml 09/03/25 14:00 09/09/25 14:34 Central Line Flush IV PUSH 10 ml Q8HR DARIEN Administration Tamsulosin HCl 0.4 mg 09/01/25 09:00 09/09/25 09:00 Tamsulosin Hcl 0.4 Mg Capsule PO 0.4 mg DAILY DARIEN Administration Terbinafine HCl 250 mg 09/10/25 09:00 Terbinafine Hcl 250 Mg Tablet PO DAILY DARIEN Vitamin D 125 mcg 09/01/25 09:00 09/09/25 11:40 Cholecalciferol (Vitamin D3) 125 Mcg (5,000 Units) Tablet PO Not Given DAILY COUNTS INCLUDE 234 BEDS AT THE [facility] Radiology Results: ITS Impressions Head CT 09/03/25 06:23 IMPRESSION: 1. No acute intracranial findings. Head/Neck CTA 09/03/25 06:30 IMPRESSION: CT HEAD: 1. No acute intracranial findings. CTA NECK: 1. Motion artifact along carotid bulbs. Stenosis or even dissection not excluded. Recommend carotid ultrasound. CTA HEAD: 1. No large vessel arterial occlusive disease or other acute findings. 2. No aneurysms. Chest CT 09/03/25 07:26 IMPRESSION: 1. Significant decrease in lung volumes with prominent dependent atelectasis including partial collapse of the bilateral lower lobes. Superimposed pneumonia not excludable. 2. No significant change in small left and moderate-sized right pleural effusions. 3. Moderate amount of ascites in the upper abdomen. 4. Scattered sclerotic bone lesions consistent with known metastatic prostate cancer and with chronic pathologic fracture at T10. Carotid Doppler Study 09/03/25 17:25 IMPRESSION: 1. >=70% (but less than near occlusion) stenosis in the right internal carotid artery. 2. >=70% (but less than near occlusion) stenosis in the left internal carotid artery. 3. The degree of stenosis indicated by the increased velocities is greater than would be expected given the amount of calcified atherosclerotic plaque evident on the prior CT angiogram. This suggests that the lower density linear filling defects at the bilateral carotid bulbs seen on the prior CT angiogram are not artifactual and likely to represent small dissection flaps. Abdomen X-Ray 09/04/25 07:07 IMPRESSION: 1: NG tube tip in the stomach. 2: Bibasilar airspace disease may represent edema or pneumonia. Chest X-Ray 09/09/25 08:06 Impression: Basilar probable pneumonia. The findings appear slightly improved. Labs Labs: Laboratory Results - last 24 hr 09/08/25 09/08/25 09/09/25 16:19 20:19 00:03 WBC RBC Hgb Hct MCV MCH MCHC RDW Plt Count MPV Immature Gran % (Auto) Neut % (Auto) Lymph % (Auto) [place] % (Auto) Eos % (Auto) Baso % (Auto) Lymph # (Auto) [place] # (Auto) Eos # (Auto) Baso # (Auto) Abs Immat Gran (auto) Absolute Neuts (auto) Absolute Nucleated RBC Nucleated RBC % Puncture Site ABG pH ABG pCO2 ABG pO2 ABG PO2/FiO2 Ratio ABG HCO3 ABG O2 Saturation ABG O2 Content ABG Base Excess A-a Gradient Oxyhemoglobin Carboxyhemoglobin Methemoglobin Reduced Hemoglobin Total Hemoglobin O2 Delivery Device O2 Liters/Min FiO2 Expiratory Pressure Inspiratory Pressure Sodium Potassium Chloride Carbon Dioxide Anion Gap BUN Creatinine Estim Creat Clear Calc Estimated GFR Glucose POC Capillary Glucose 115 H 104 101 Calcium Phosphorus Magnesium Total Bilirubin AST ALT Alkaline Phosphatase Total Protein Albumin 09/09/25 09/09/25 09/09/25 04:22 04:51 04:57 WBC 15.4 H RBC 2.92 L Hgb 9.0 L Hct 28.8 L MCV 98.6 MCH 30.8 MCHC 31.3 L RDW 19.9 H Plt Count 121 L MPV 11.5 H Immature Gran % (Auto) 3.1 H Neut % (Auto) 81.7 H Lymph % (Auto) 5.7 L [place] % (Auto) 9.2 H Eos % (Auto) 0.0 Baso % (Auto) 0.3 Lymph # (Auto) 0.87 L [place] # (Auto) 1.4 H Eos # (Auto) 0.0 Baso # (Auto) 0.1 Abs Immat Gran (auto) 0.48 H Absolute Neuts (auto) 12.6 H Absolute Nucleated RBC 0.000 Nucleated RBC % 0.0 Puncture Site Right radial ABG pH 7.427 ABG pCO2 40.4 ABG pO2 132.2 H ABG PO2/FiO2 Ratio 4.41 ABG HCO3 26.0 ABG O2 Saturation 98.7 ABG O2 Content 18.2 ABG Base Excess 1.6 A-a Gradient 34.2 Oxyhemoglobin 97.6 Carboxyhemoglobin 1.0 Methemoglobin 0.1 Reduced Hemoglobin 1.3 Total Hemoglobin 13.1 O2 Delivery Device Bipap O2 Liters/Min Not Reportable FiO2 30 Expiratory Pressure 6 Inspiratory Pressure 12 Sodium 142 Potassium 3.7 Chloride 107 Carbon Dioxide 30 Anion Gap 5 BUN 21 H Creatinine 0.60 L Estim Creat Clear Calc 87 Estimated GFR > 60 Glucose 95 POC Capillary Glucose 89 Calcium 7.9 L Phosphorus 2.5 Magnesium 1.9 Total Bilirubin 1.2 AST 79 H ALT 28 Alkaline Phosphatase 113 Total Protein 4.8 L Albumin 2.9 L 09/09/25 09/09/25 08:48 15:39 WBC RBC Hgb Hct MCV MCH MCHC RDW Plt Count MPV Immature Gran % (Auto) Neut % (Auto) Lymph % (Auto) [place] % (Auto) Eos % (Auto) Baso % (Auto) Lymph # (Auto) [place] # (Auto) Eos # (Auto) Baso # (Auto) Abs Immat Gran (auto) Absolute Neuts (auto) Absolute Nucleated RBC Nucleated RBC % Puncture Site ABG pH ABG pCO2 ABG pO2 ABG PO2/FiO2 Ratio ABG HCO3 ABG O2 Saturation ABG O2 Content ABG Base Excess A-a Gradient Oxyhemoglobin Carboxyhemoglobin Methemoglobin Reduced Hemoglobin Total Hemoglobin O2 Delivery Device O2 Liters/Min FiO2 Expiratory Pressure Inspiratory Pressure Sodium Potassium Chloride Carbon Dioxide Anion Gap BUN Creatinine Estim Creat Clear Calc Estimated GFR Glucose POC Capillary Glucose 88 73 Calcium Phosphorus Magnesium Total Bilirubin AST ALT Alkaline Phosphatase Total Protein Albumin Quality VTE Prophylaxis VTE prophylaxis: mechanical ordered
[2025-09-09] MEDS: MUPIROCIN 2% OINT 22 GM TUBE 1 APPLIC TOPICAL (16:23)
[2025-09-09] MEDS: MICONAZOLE NITRATE 2% CREAM 30 GM TUBE 1 APPLIC TOPICAL (16:23)
--- NOTE | 2025-09-09 17:30 | WPDINFPN2 ---
Progress Note: A&P Assessment and Plan (1) Fever and neutropenia: Code(s): D70.9 - Neutropenia, unspecified; R50.81 - Fever presenting with conditions classified elsewhere Status: Acute (2) Pneumonia: Code(s): J18.9 - Pneumonia, unspecified organism Status: Acute (3) Stomatitis and mucositis: Code(s): K12.1 - Other forms of stomatitis; K12.30 - Oral mucositis (ulcerative), unspecified Status: Acute (4) Candidal balano-posthitis: Code(s): B37.49 - Other urogenital candidiasis Status: Acute (5) Septic shock: Code(s): A41.9 - Sepsis, unspecified organism; R65.21 - Severe sepsis with septic shock Status: Acute (6) Encephalopathy: Code(s): G93.40 - Encephalopathy, unspecified Status: Acute (7) Metastatic malignant neoplasm to prostate: Code(s): C79.82 - Secondary malignant neoplasm of genital organs Status: Acute Plan # Post chemotherapy neutropenia without fever -- neutropenia now resolved. +leukocytosis now but decreasing # original admission with Possible left lung base pneumonia. -- originally placed on cefepime, azithromycin, and vancomycin. # Development of severe sepsis with shock. on a pressor--resolved -- now associated with progressive respiratory disease including pleural effusions, pleural atelectasis, and bilateral pneumonitis--extubated and improving--now on room air -- no longer neutropenic but the above may have been developing while initially neutropenic. -- pleural fluid cultures and repeat blood cultures are unrevealing. Bronchoscopy cultures also unrevealing to date -- antibiotics have been broadened to Meropenem, vancomycin, and micafungin # Post chemotherapy mucositis. # Balanitis. # Metastatic prostate cancer. RECOMMENDATIONS: will continue to monitor cultures--so far unrevealing continue meropenem topical antifungal to penis d/w son, and pharmacy staff Patient was seen via video telehealth consultation with the assistance of staff. Chart, data, and patient independently reviewed. Patient was located at [facility] while I was located in my [place] office. Received verbal consent from patient. Subjective Date/time seen: 09/09/25 17:30 Interval history: no fevers WBC count down Out of ICU hungry Exam Narrative: NAD, on room air, non-toxic, conversant +PAC abd soft NT decreased edema +pereyra Objective Data Vital Signs Vital Signs: Vital Signs - 24 hr 09/08/25 18:00 09/08/25 18:00 09/08/25 18:00 Temperature Pulse Rate 127 H 127 H 128 H Respiratory Rate 19 16 Blood Pressure 112/65 Pulse Oximetry 95 Oxygen Delivery Fraction of Inspired Oxygen 09/08/25 18:00 09/08/25 19:00 09/08/25 20:00 Temperature 98.2 F Pulse Rate 122 H 128 H 132 H Respiratory Rate 16 18 Blood Pressure 111/60 107/60 102/65 Pulse Oximetry 93 95 Oxygen Delivery Fraction of Inspired Oxygen 09/08/25 20:00 09/08/25 20:00 09/08/25 20:00 Temperature Pulse Rate 132 H 133 H Respiratory Rate Blood Pressure 102/65 Pulse Oximetry Oxygen Delivery Room Air Fraction of Inspired Oxygen 09/08/25 20:06 09/08/25 20:10 09/08/25 20:15 Temperature Pulse Rate 134 H 134 H 130 H Respiratory Rate 20 20 16 Blood Pressure Pulse Oximetry 97 Oxygen Delivery Room Air Fraction of Inspired Oxygen 21 09/08/25 21:00 09/08/25 22:00 09/08/25 22:00 Temperature 97.9 F Pulse Rate 135 H 135 H 135 H Respiratory Rate 16 22 H Blood Pressure 110/54 L 117/59 L Pulse Oximetry 93 94 Oxygen Delivery Fraction of Inspired Oxygen 09/08/25 22:00 09/08/25 22:51 09/08/25 22:58 Temperature Pulse Rate 135 H 136 H 140 H Respiratory Rate 29 H Blood Pressure 117/59 L Pulse Oximetry 100 Oxygen Delivery BiPAP Fraction of Inspired Oxygen 09/08/25 23:00 09/09/25 00:00 09/09/25 00:00 Temperature 98.4 F Pulse Rate 141 H 114 H Respiratory Rate 22 H 18 Blood Pressure 133/86 126/76 Pulse Oximetry 100 100 100 Oxygen Delivery BiPAP Fraction of Inspired Oxygen 30 09/09/25 00:00 09/09/25 00:00 09/09/25 01:00 Temperature Pulse Rate 114 H 116 H 110 H Respiratory Rate 20 Blood Pressure 126/76 124/67 Pulse Oximetry 100 Oxygen Delivery Fraction of Inspired Oxygen 09/09/25 01:52 09/09/25 01:55 09/09/25 02:00 Temperature Pulse Rate 110 H 108 H 110 H Respiratory Rate 18 Blood Pressure 130/75 Pulse Oximetry 100 Oxygen Delivery BiPAP Fraction of Inspired Oxygen 09/09/25 02:00 09/09/25 02:00 09/09/25 03:00 Temperature 98.1 F Pulse Rate 110 H 110 H 113 H Respiratory Rate 18 18 Blood Pressure 130/75 140/87 Pulse Oximetry 100 100 Oxygen Delivery Fraction of Inspired Oxygen 09/09/25 04:00 09/09/25 04:00 09/09/25 04:00 Temperature 97.9 F Pulse Rate 109 H 109 H Respiratory Rate 16 Blood Pressure 126/77 126/77 Pulse Oximetry 100 100 Oxygen Delivery Room Air Fraction of Inspired Oxygen 09/09/25 04:00 09/09/25 05:00 09/09/25 05:12 Temperature Pulse Rate 110 H 115 H 111 H Respiratory Rate 12 26 H Blood Pressure 99/67 L Pulse Oximetry 95 100 Oxygen Delivery BiPAP Fraction of Inspired Oxygen 09/09/25 05:23 09/09/25 06:00 09/09/25 06:00 Temperature 98.2 F Pulse Rate 113 H 116 H 116 H Respiratory Rate 20 Blood Pressure 117/68 115/67 Pulse Oximetry 94 Oxygen Delivery Fraction of Inspired Oxygen 09/09/25 07:00 09/09/25 07:36 09/09/25 07:37 Temperature 98.0 F Pulse Rate 112 H Respiratory Rate 10 L Blood Pressure 133/64 Pulse Oximetry 98 95 95 Oxygen Delivery Room Air Room Air Fraction of Inspired Oxygen 09/09/25 07:41 09/09/25 07:47 09/09/25 08:00 Temperature Pulse Rate 115 H 113 H 122 H Respiratory Rate 15 14 18 Blood Pressure 123/66 Pulse Oximetry 97 Oxygen Delivery Fraction of Inspired Oxygen 09/09/25 08:00 09/09/25 08:00 09/09/25 09:00 Temperature Pulse Rate 117 H 120 H 117 H Respiratory Rate 18 Blood Pressure Pulse Oximetry 97 Oxygen Delivery Room Air Fraction of Inspired Oxygen 09/09/25 10:00 09/09/25 12:00 09/09/25 12:00 Temperature 97.8 F Pulse Rate 110 H 103 H 103 H Respiratory Rate 16 16 Blood Pressure 107/65 Pulse Oximetry 97 97 Oxygen Delivery Room Air Fraction of Inspired Oxygen 09/09/25 12:00 09/09/25 12:00 09/09/25 14:00 Temperature Pulse Rate 100 106 H Respiratory Rate Blood Pressure Pulse Oximetry Oxygen Delivery Room Air Fraction of Inspired Oxygen 09/09/25 15:59 09/09/25 16:00 Temperature 98.1 F Pulse Rate 111 H Respiratory Rate 18 Blood Pressure 124/60 Pulse Oximetry 97 Oxygen Delivery Room Air Fraction of Inspired Oxygen Intake/Output Intake/Output: Intake & Output 09/06/25 09/07/25 09/08/25 09/09/25 23:59 23:59 23:59 23:59 Intake Total 1693.2 1149.5 1137.8 820 Output Total 1200 2025 3875 1350 Balance 493.2 -875.5 -2737.2 -530 Meds/Results Medications: Active Medications Generic Name Dose Route Start Last Admin Trade Name Freq PRN Reason Stop Dose Admin Acetaminophen 650 mg 08/30/25 10:58 09/09/25 15:33 Acetaminophen 325 Mg Tablet PO 650 mg Q4H PRN Administration Mild Pain (1-3) or Fever Albuterol/Ipratropium 3 ml 09/09/25 08:08 Ipratropium 0.5 Mg/Albuterol Sulfate 2.5 Mg (Base) Ampul.Neb 3 Ml INHALATION Q6HRT PRN wheezing Artificial Tears 1 drop 09/09/25 08:06 09/09/25 09:00 Artificial Tears Ophth Soln 15 Ml Bottle EACH EYE 1 drop QID PRN Administration Dry Eye(s) Lidocaine HCl 30 ml/ Al Hydrox 0 ml 08/30/25 17:00 09/03/25 07:00 /Mg Hydrox/Simethicone 30 ml/ PO Not Given Diphenhydramine HCl 75 mg Q4HWA DARIEN On Hold: 09/03/25 07:00 Cyanocobalamin 500 mcg 09/10/25 09:00 Cyanocobalamin 500 Mcg Tablet PO DAILY DARIEN Dextrose 12.5 gm 09/03/25 10:06 Dextrose 50% 25 Gm/50 Ml Syringe IV PUSH PRN PRN Hypoglycemia Protocol Fenofibrate 145 mg 09/01/25 09:00 09/09/25 08:57 Fenofibrate 145 Mg Tablet PO 145 mg QAM DARIEN Administration Ferrous Sulfate 325 mg 09/10/25 09:00 Ferrous Sulfate 325 Mg Tablet PO 10/10/25 08:59 DAILY DARIEN Folic Acid 0.4 mg 09/10/25 09:00 Folic Acid 0.4 Mg Tablet PO 10/10/25 08:59 DAILY DARIEN Furosemide 40 mg 09/09/25 09:00 09/09/25 09:00 Furosemide Inj 40 Mg/4 Ml Vial IV PUSH 40 mg DAILY DARIEN Administration Glucagon 1 mg 09/03/25 10:06 Glucagon For Inj 1 Mg Vial IM PRN PRN Hypoglycemia Protocol Glucose 15 gm 09/03/25 10:06 Glucose Oral Gel 15 Gm Of Glucse In 37.5 Gm Tube PO PRN PRN Hypoglycemia Protocol Heparin Sodium (Beef Lung) 50 units 09/03/25 09:00 09/09/25 09:00 Heparin Flush 50 Units/5 Ml Syringe IV PUSH 50 units QAM DARIEN Administration Heparin Sodium (Beef Lung) 50 units 09/03/25 07:03 Heparin Flush 50 Units/5 Ml Syringe IV PUSH PRN PRN after intermittent infusion Heparin Sodium (Beef Lung) 50 units 09/03/25 07:03 Heparin Flush 50 Units/5 Ml Syringe IV PUSH PRN PRN after blood draws Heparin Sodium (Porcine) 500 units 09/03/25 07:03 Heparin Sodium Lock Flush 500 Units/5 Ml Syringe IV PUSH PRN PRN see comments below Dextrose 1,000 mls @ 100 mls/hr 09/03/25 10:06 Dextrose 5% 1,000 Ml IVPB PRN PRN Hypoglycemia Protocol Meropenem 1 gm/ Sodium 100 mls @ 200 mls/hr 09/03/25 11:00 09/09/25 13:24 Chloride IVPB Infused Q8H DARIEN Infusion Ibuprofen 400 mg/ Sodium 104 mls @ 208 mls/hr 09/09/25 17:30 Chloride IVPB 09/09/25 17:59 ONCE ONE Insulin Aspart 2 - 5 units 09/03/25 10:10 09/09/25 16:23 Insulin Aspart (*Bkc) 100 Units/Ml SUB-Q Not Given Q4HR [facility] Protocol Lidocaine HCl 1 applic 08/30/25 20:34 08/31/25 09:34 Lidocaine 4% Soln 50 Ml Btl TOPICAL 1 applic PRN PRN Administration Pain Lidocaine/Prilocaine 1 each 09/09/25 14:12 Lidocaine/Prilocaine Cream 2.5-2.5% Tube TOPICAL DAILY PRN Pain Loratadine 10 mg 08/31/25 21:00 09/09/25 11:40 Loratadine 10 Mg Tablet PO Not Given QAM DARIEN Metoprolol Tartrate 25 mg 09/09/25 09:00 09/09/25 09:00 Metoprolol Tartrate 25 Mg Tablet PO 25 mg Q12HR DARIEN Administration Miconazole Nitrate 1 applic 09/09/25 17:00 09/09/25 16:23 Miconazole Nitrate 2% Cream 30 Gm Tube TOPICAL 10/09/25 16:59 1 applic BID DARIEN Administration Miscellaneous Information 0 each 09/09/25 00:01 Nonformulary Drug (Mesalamine [Lialda] 1.2 Gram Tablet,Delayed Release (Dr/Ec)) Can Patien XX 10/09/25 00:00 CLARIFY [facility] Miscellaneous Information 0 each 09/09/25 00:01 Nonformulary Drug (Abiraterone 250 Mg Tablet) = Can Patient Use Home Med? XX 10/09/25 00:00 CLARIFY [facility] Multivitamins Therapeutic 1 tablet 09/10/25 09:00 Multivitamins Therapeutic Tab (*Bkc) PO DAILY DARIEN Mupirocin 1 applic 09/09/25 17:00 09/09/25 16:23 Mupirocin 2% Oint 22 Gm Tube TOPICAL 1 applic BID DARIEN Administration Non-Formulary Medication 1,000 mg 09/10/25 09:00 Abiraterone PO 10/10/25 08:59 DAILY [facility] Non-Formulary Medication 2.4 gm 09/10/25 09:00 Mesalamine [Lialda] PO 10/10/25 08:59 DAILY [facility] Ondansetron HCl 8 mg 09/09/25 14:12 Ondansetron Hcl Odt 4 Mg Tablet PO Q8-12H PRN nausea and vomiting Pantoprazole Sodium 40 mg 09/03/25 21:00 09/09/25 09:00 Pantoprazole Sodium Iv 40 Mg Vial IV PUSH 40 mg Q12HR DARIEN Administration Prednisone 5 mg 09/09/25 21:00 Prednisone 5 Mg Tablet PO Q12HR DARIEN Simvastatin 20 mg 09/09/25 21:00 Simvastatin 20 Mg Tablet PO HS [facility] Sodium Chloride 10 ml 09/03/25 14:00 09/09/25 14:34 Central Line Flush IV PUSH 10 ml Q8HR DARIEN Administration Tamsulosin HCl 0.4 mg 09/01/25 09:00 09/09/25 09:00 Tamsulosin Hcl 0.4 Mg Capsule PO 0.4 mg DAILY DARIEN Administration Terbinafine HCl 250 mg 09/10/25 09:00 Terbinafine Hcl 250 Mg Tablet PO DAILY [facility] Vitamin D 125 mcg 09/01/25 09:00 09/09/25 11:40 Cholecalciferol (Vitamin D3) 125 Mcg (5,000 Units) Tablet PO Not Given DAILY [facility] Radiology Results: ITS Impressions Head CT 09/03/25 06:23 IMPRESSION: 1. No acute intracranial findings. Head/Neck CTA 09/03/25 06:30 IMPRESSION: CT HEAD: 1. No acute intracranial findings. CTA NECK: 1. Motion artifact along carotid bulbs. Stenosis or even dissection not excluded. Recommend carotid ultrasound. CTA HEAD: 1. No large vessel arterial occlusive disease or other acute findings. 2. No aneurysms. Chest CT 09/03/25 07:26 IMPRESSION: 1. Significant decrease in lung volumes with prominent dependent atelectasis including partial collapse of the bilateral lower lobes. Superimposed pneumonia not excludable. 2. No significant change in small left and moderate-sized right pleural effusions. 3. Moderate amount of ascites in the upper abdomen. 4. Scattered sclerotic bone lesions consistent with known metastatic prostate cancer and with chronic pathologic fracture at T10. Carotid Doppler Study 09/03/25 17:25 IMPRESSION: 1. >=70% (but less than near occlusion) stenosis in the right internal carotid artery. 2. >=70% (but less than near occlusion) stenosis in the left internal carotid artery. 3. The degree of stenosis indicated by the increased velocities is greater than would be expected given the amount of calcified atherosclerotic plaque evident on the prior CT angiogram. This suggests that the lower density linear filling defects at the bilateral carotid bulbs seen on the prior CT angiogram are not artifactual and likely to represent small dissection flaps. Abdomen X-Ray 09/04/25 07:07 IMPRESSION: 1: NG tube tip in the stomach. 2: Bibasilar airspace disease may represent edema or pneumonia. Chest X-Ray 09/09/25 08:06 Impression: Basilar probable pneumonia. The findings appear slightly improved. Labs Labs: Laboratory Results - last 24 hr 09/08/25 09/09/25 09/09/25 20:19 00:03 04:22 WBC RBC Hgb Hct MCV MCH MCHC RDW Plt Count MPV Immature Gran % (Auto) Neut % (Auto) Lymph % (Auto) Marion % (Auto) Eos % (Auto) Baso % (Auto) Lymph # (Auto) Marion # (Auto) Eos # (Auto) Baso # (Auto) Abs Immat Gran (auto) Absolute Neuts (auto) Absolute Nucleated RBC Nucleated RBC % Puncture Site Right radial ABG pH 7.427 ABG pCO2 40.4 ABG pO2 132.2 H ABG PO2/FiO2 Ratio 4.41 ABG HCO3 26.0 ABG O2 Saturation 98.7 ABG O2 Content 18.2 ABG Base Excess 1.6 A-a Gradient 34.2 Oxyhemoglobin 97.6 Carboxyhemoglobin 1.0 Methemoglobin 0.1 Reduced Hemoglobin 1.3 Total Hemoglobin 13.1 O2 Delivery Device Bipap O2 Liters/Min Not Reportable FiO2 30 Expiratory Pressure 6 Inspiratory Pressure 12 Sodium Potassium Chloride Carbon Dioxide Anion Gap BUN Creatinine Estim Creat Clear Calc Estimated GFR Glucose POC Capillary Glucose 104 101 Calcium Phosphorus Magnesium Total Bilirubin AST ALT Alkaline Phosphatase Total Protein Albumin 09/09/25 09/09/25 09/09/25 04:51 04:57 08:48 WBC 15.4 H RBC 2.92 L Hgb 9.0 L Hct 28.8 L MCV 98.6 MCH 30.8 MCHC 31.3 L RDW 19.9 H Plt Count 121 L MPV 11.5 H Immature Gran % (Auto) 3.1 H Neut % (Auto) 81.7 H Lymph % (Auto) 5.7 L Marion % (Auto) 9.2 H Eos % (Auto) 0.0 Baso % (Auto) 0.3 Lymph # (Auto) 0.87 L Marion # (Auto) 1.4 H Eos # (Auto) 0.0 Baso # (Auto) 0.1 Abs Immat Gran (auto) 0.48 H Absolute Neuts (auto) 12.6 H Absolute Nucleated RBC 0.000 Nucleated RBC % 0.0 Puncture Site ABG pH ABG pCO2 ABG pO2 ABG PO2/FiO2 Ratio ABG HCO3 ABG O2 Saturation ABG O2 Content ABG Base Excess A-a Gradient Oxyhemoglobin Carboxyhemoglobin Methemoglobin Reduced Hemoglobin Total Hemoglobin O2 Delivery Device O2 Liters/Min FiO2 Expiratory Pressure Inspiratory Pressure Sodium 142 Potassium 3.7 Chloride 107 Carbon Dioxide 30 Anion Gap 5 BUN 21 H Creatinine 0.60 L Estim Creat Clear Calc 87 Estimated GFR > 60 Glucose 95 POC Capillary Glucose 89 88 Calcium 7.9 L Phosphorus 2.5 Magnesium 1.9 Total Bilirubin 1.2 AST 79 H ALT 28 Alkaline Phosphatase 113 Total Protein 4.8 L Albumin 2.9 L 09/09/25 15:39 WBC RBC Hgb Hct MCV MCH MCHC RDW Plt Count MPV Immature Gran % (Auto) Neut % (Auto) Lymph % (Auto) Marion % (Auto) Eos % (Auto) Baso % (Auto) Lymph # (Auto) Marion # (Auto) Eos # (Auto) Baso # (Auto) Abs Immat Gran (auto) Absolute Neuts (auto) Absolute Nucleated RBC Nucleated RBC % Puncture Site ABG pH ABG pCO2 ABG pO2 ABG PO2/FiO2 Ratio ABG HCO3 ABG O2 Saturation ABG O2 Content ABG Base Excess A-a Gradient Oxyhemoglobin Carboxyhemoglobin Methemoglobin Reduced Hemoglobin Total Hemoglobin O2 Delivery Device O2 Liters/Min FiO2 Expiratory Pressure Inspiratory Pressure Sodium Potassium Chloride Carbon Dioxide Anion Gap BUN Creatinine Estim Creat Clear Calc Estimated GFR Glucose POC Capillary Glucose 73 Calcium Phosphorus Magnesium Total Bilirubin AST ALT Alkaline Phosphatase Total Protein Albumin
[2025-09-09] MEDS: IBUPROFEN IV 400 MG in SODIUM CHLORIDE 0.9% IV 100 ML 208 MG IVPB (17:39)
[2025-09-09] MEDS: SIMVASTATIN 20 MG TABLET PO (20:31)
[2025-09-10] VITALS (13 sets, daily range): BP systolic 98–132; BP diastolic 47–70; PULSE 77–110; RESP 20–23; TEMP 36.8–36.9; O2SAT 92–100
[2025-09-10] MEDS: CENTRAL LINE FLUSH 10 ML IV PUSH ×3 (00:14→20:25)
[2025-09-10] MEDS: MEROPENEM 1 GM in SODIUM CHLORIDE 0.9% IV 100 ML 200 ML IVPB ×2 (03:03→10:09)
--- NOTE | 2025-09-10 08:52 | PCSTNOTE ---
Please refer to the Bedside Swallow Evaluation in the EMR. Please note, silent aspiration cannot be ruled out at bedside. The patient is a 75 year old male with a repeat BSE recommended following a BSE completed 09/09/25. The patient was positioned upright and provided the following consistencies: 5cc/ thin liquid, thin liquid via a cup, and applesauce trials. Oral Stage: Timely oral preparation and transit across consistencies. Pharyngeal stage: Delayed swallow reflex with weak laryngeal elevation noted across consistencies. Multiple swallows performed at times to complete swallow. Noted delayed cough with slightly 'wet quality following small controlled cup trials thin liquid. Recommend : NPO till MBS completed. Results reviewed with nursing and physician.
[2025-09-10] MEDS: MULTIVITAMINS THERAPEUTIC TAB (*BKC) 1 TABLET PO (09:36)
[2025-09-10] MEDS: METOPROLOL TARTRATE 25 MG TABLET PO (09:36)
[2025-09-10] MEDS: TERBINAFINE HCL 250 MG TABLET PO (09:36)
[2025-09-10] MEDS: TAMSULOSIN HCL 0.4 MG CAPSULE PO (09:36)
[2025-09-10] MEDS: CHOLECALCIFEROL (VITAMIN D3) 125 MCG (5,000 UNITS) TABLET PO (09:36)
[2025-09-10] MEDS: FOLIC ACID 0.4 MG TABLET PO (09:36)
[2025-09-10] MEDS: FENOFIBRATE 145 MG TABLET PO (09:36)
[2025-09-10] MEDS: LORATADINE 10 MG TABLET PO (09:36)
[2025-09-10] MEDS: FUROSEMIDE INJ 40 MG/4 ML VIAL IV PUSH (09:37)
[2025-09-10] MEDS: PANTOPRAZOLE SODIUM IV 40 MG VIAL IV PUSH ×2 (09:37→20:24)
[2025-09-10] MEDS: CYANOCOBALAMIN 500 MCG TABLET PO (09:37)
[2025-09-10] MEDS: FERROUS SULFATE 325 MG TABLET PO (09:37)
[2025-09-10] MEDS: MICONAZOLE NITRATE 2% CREAM 30 GM TUBE 1 APPLIC TOPICAL ×2 (09:41→20:36)
[2025-09-10] MEDS: MUPIROCIN 2% OINT 22 GM TUBE 1 APPLIC TOPICAL ×2 (09:41→20:37)
[2025-09-10 10:20] LABS: Magnesium 2.0 mg/dL (1.6-2.3)
--- NOTE | 2025-09-10 14:46 | WPDINFPN2 ---
Progress Note: A&P Assessment and Plan (1) Fever and neutropenia: Code(s): D70.9 - Neutropenia, unspecified; R50.81 - Fever presenting with conditions classified elsewhere Status: Acute (2) Pneumonia: Code(s): J18.9 - Pneumonia, unspecified organism Status: Acute (3) Stomatitis and mucositis: Code(s): K12.1 - Other forms of stomatitis; K12.30 - Oral mucositis (ulcerative), unspecified Status: Acute (4) Candidal balano-posthitis: Code(s): B37.49 - Other urogenital candidiasis Status: Acute (5) Septic shock: Code(s): A41.9 - Sepsis, unspecified organism; R65.21 - Severe sepsis with septic shock Status: Acute (6) Encephalopathy: Code(s): G93.40 - Encephalopathy, unspecified Status: Acute (7) Metastatic malignant neoplasm to prostate: Code(s): C79.82 - Secondary malignant neoplasm of genital organs Status: Acute Plan # Post chemotherapy neutropenia without fever -- neutropenia now resolved. +leukocytosis now but decreasing # original admission with Possible left lung base pneumonia. -- originally placed on cefepime, azithromycin, and vancomycin. # Development of severe sepsis with shock. on a pressor--resolved -- now associated with progressive respiratory disease including pleural effusions, pleural atelectasis, and bilateral pneumonitis--extubated and improving--now on room air -- no longer neutropenic but the above may have been developing while initially neutropenic. -- pleural fluid cultures and repeat blood cultures are unrevealing. Bronchoscopy cultures also unrevealing to date -- antibiotics have been broadened to Meropenem, vancomycin, and micafungin--now stopped # Post chemotherapy mucositis. # Balanitis. # Metastatic prostate cancer. RECOMMENDATIONS: will continue to monitor cultures--so far unrevealing stop meropenem and monitor off all abx for now check CBC in am topical antifungal to penis d/w pharmacy staff Patient was seen via video telehealth consultation with the assistance of staff. Chart, data, and patient independently reviewed. Patient was located at [facility] while I was located in my [place] office. Received verbal consent from patient. Subjective Date/time seen: 09/10/25 14:46 Interval history: no fever Exam Narrative: sleeping peacefully on room air, non-toxic Objective Data Vital Signs Vital Signs: Vital Signs - 24 hr 09/09/25 15:59 09/09/25 16:00 09/09/25 16:00 Temperature 98.1 F Pulse Rate 111 H 107 H Respiratory Rate 18 Blood Pressure 124/60 Pulse Oximetry 97 Oxygen Delivery Room Air 09/09/25 18:00 09/09/25 19:53 09/09/25 20:00 Temperature 98.5 F Pulse Rate 99 100 Respiratory Rate 18 Blood Pressure 105/52 L Pulse Oximetry 95 Oxygen Delivery Room Air 09/09/25 20:00 09/09/25 20:31 09/09/25 22:06 Temperature Pulse Rate 102 H 104 H 99 Respiratory Rate Blood Pressure Pulse Oximetry Oxygen Delivery 09/10/25 00:00 09/10/25 00:00 09/10/25 00:00 Temperature 98.5 F Pulse Rate 92 90 Respiratory Rate 23 H Blood Pressure 102/47 L Pulse Oximetry 100 Oxygen Delivery BiPAP 09/10/25 02:00 09/10/25 04:00 09/10/25 04:00 Temperature Pulse Rate 99 77 Respiratory Rate Blood Pressure Pulse Oximetry Oxygen Delivery Room Air 09/10/25 04:00 09/10/25 05:43 09/10/25 08:00 Temperature 98.2 F 98.4 F Pulse Rate 100 99 106 H Respiratory Rate 20 22 H Blood Pressure 111/54 L 132/70 Pulse Oximetry 97 98 Oxygen Delivery 09/10/25 08:00 09/10/25 09:36 09/10/25 09:55 Temperature Pulse Rate 106 H 101 H Respiratory Rate Blood Pressure Pulse Oximetry Oxygen Delivery Room Air 09/10/25 10:00 09/10/25 11:37 09/10/25 12:00 Temperature 98.2 F Pulse Rate 108 H 89 Respiratory Rate 22 H Blood Pressure 98/55 L Pulse Oximetry 92 Oxygen Delivery Room Air 09/10/25 12:00 Temperature Pulse Rate 81 Respiratory Rate Blood Pressure Pulse Oximetry Oxygen Delivery Intake/Output Intake/Output: Intake & Output 09/07/25 09/08/25 09/09/25 09/10/25 23:59 23:59 23:59 23:59 Intake Total 1149.5 1137.8 1024 150 Output Total 1874 0647 9675 125 Balance -875.5 -2737.2 -701 25 Meds/Results Medications: Active Medications Generic Name Dose Route Start Last Admin Trade Name Freq PRN Reason Stop Dose Admin Acetaminophen 650 mg 08/30/25 10:58 09/09/25 15:33 Acetaminophen 325 Mg Tablet PO 650 mg Q4H PRN Administration Mild Pain (1-3) or Fever Albuterol/Ipratropium 3 ml 09/09/25 08:08 Ipratropium 0.5 Mg/Albuterol Sulfate 2.5 Mg (Base) Ampul.Neb 3 Ml INHALATION Q6HRT PRN wheezing Artificial Tears 1 drop 09/09/25 08:06 09/09/25 09:00 Artificial Tears Ophth Soln 15 Ml Bottle EACH EYE 1 drop QID PRN Administration Dry Eye(s) Lidocaine HCl 30 ml/ Al Hydrox 0 ml 08/30/25 17:00 09/03/25 07:00 /Mg Hydrox/Simethicone 30 ml/ PO Not Given Diphenhydramine HCl 75 mg Q4HWA DARIEN On Hold: 09/03/25 07:00 Cyanocobalamin 500 mcg 09/10/25 09:00 09/10/25 09:37 Cyanocobalamin 500 Mcg Tablet PO 500 mcg DAILY DARIEN Administration Dextrose 12.5 gm 09/03/25 10:06 Dextrose 50% 25 Gm/50 Ml Syringe IV PUSH PRN PRN Hypoglycemia Protocol Fenofibrate 145 mg 09/01/25 09:00 09/10/25 09:36 Fenofibrate 145 Mg Tablet PO 145 mg QAM DARIEN Administration Ferrous Sulfate 325 mg 09/10/25 09:00 09/10/25 09:37 Ferrous Sulfate 325 Mg Tablet PO 10/10/25 08:59 325 mg DAILY DARIEN Administration Folic Acid 0.4 mg 09/10/25 09:00 09/10/25 09:36 Folic Acid 0.4 Mg Tablet PO 10/10/25 08:59 0.4 mg DAILY DARIEN Administration Furosemide 40 mg 09/09/25 09:00 09/10/25 09:37 Furosemide Inj 40 Mg/4 Ml Vial IV PUSH 40 mg DAILY DARIEN Administration Glucagon 1 mg 09/03/25 10:06 Glucagon For Inj 1 Mg Vial IM PRN PRN Hypoglycemia Protocol Glucose 15 gm 09/03/25 10:06 Glucose Oral Gel 15 Gm Of Glucse In 37.5 Gm Tube PO PRN PRN Hypoglycemia Protocol Heparin Sodium (Beef Lung) 50 units 09/03/25 09:00 09/10/25 09:37 Heparin Flush 50 Units/5 Ml Syringe IV PUSH 50 units QAM DARIEN Administration Heparin Sodium (Beef Lung) 50 units 09/03/25 07:03 Heparin Flush 50 Units/5 Ml Syringe IV PUSH PRN PRN after intermittent infusion Heparin Sodium (Beef Lung) 50 units 09/03/25 07:03 Heparin Flush 50 Units/5 Ml Syringe IV PUSH PRN PRN after blood draws Heparin Sodium (Porcine) 500 units 09/03/25 07:03 Heparin Sodium Lock Flush 500 Units/5 Ml Syringe IV PUSH PRN PRN see comments below Dextrose 1,000 mls @ 100 mls/hr 09/03/25 10:06 Dextrose 5% 1,000 Ml IVPB PRN PRN Hypoglycemia Protocol Insulin Aspart 2 - 5 units 09/03/25 10:10 09/10/25 12:54 Insulin Aspart (*Bkc) 100 Units/Ml SUB-Q Not Given Q4HR [facility] Protocol Lidocaine HCl 1 applic 08/30/25 20:34 08/31/25 09:34 Lidocaine 4% Soln 50 Ml Btl TOPICAL 1 applic PRN PRN Administration Pain Lidocaine/Prilocaine 1 each 09/09/25 14:12 Lidocaine/Prilocaine Cream 2.5-2.5% Tube TOPICAL DAILY PRN Pain Loratadine 10 mg 08/31/25 21:00 09/10/25 09:36 Loratadine 10 Mg Tablet PO 10 mg QAM DARIEN Administration Metoprolol Tartrate 25 mg 09/09/25 09:00 09/10/25 09:36 Metoprolol Tartrate 25 Mg Tablet PO 25 mg Q12HR DAREIN Administration Miconazole Nitrate 1 applic 09/10/25 21:00 Miconazole Nitrate 2% Cream 30 Gm Tube TOPICAL 10/09/25 16:59 Q12HR [facility] Miscellaneous Information 0 each 09/09/25 00:01 Nonformulary Drug (Mesalamine [Lialda] 1.2 Gram Tablet,Delayed Release (Dr/Ec)) Can Patien XX 10/09/25 00:00 CLARIFY [facility] Multivitamins Therapeutic 1 tablet 09/10/25 09:00 09/10/25 09:36 Multivitamins Therapeutic Tab (*Bkc) PO 1 tablet DAILY DARIEN Administration Mupirocin 1 applic 09/10/25 21:00 Mupirocin 2% Oint 22 Gm Tube TOPICAL Q12HR [facility] Non-Formulary Medication 2.4 gm 09/10/25 09:00 Mesalamine [Lialda] PO 10/10/25 08:59 DAILY DARIEN Ondansetron HCl 8 mg 09/09/25 14:12 Ondansetron Hcl Odt 4 Mg Tablet PO Q8-12H PRN nausea and vomiting Pantoprazole Sodium 40 mg 09/03/25 21:00 09/10/25 09:37 Pantoprazole Sodium Iv 40 Mg Vial IV PUSH 40 mg Q12HR DARIEN Administration Prednisone 5 mg 09/09/25 21:00 09/10/25 09:36 Prednisone 5 Mg Tablet PO 5 mg Q12HR DARIEN Administration Simvastatin 20 mg 09/09/25 21:00 09/09/25 20:31 Simvastatin 20 Mg Tablet PO 20 mg HS DARIEN Administration Sodium Chloride 10 ml 09/03/25 14:00 09/10/25 14:42 Central Line Flush IV PUSH Not Given Q8HR DARIEN Tamsulosin HCl 0.4 mg 09/01/25 09:00 09/10/25 09:36 Tamsulosin Hcl 0.4 Mg Capsule PO 0.4 mg DAILY DARIEN Administration Terbinafine HCl 250 mg 09/10/25 09:00 09/10/25 09:36 Terbinafine Hcl 250 Mg Tablet PO 250 mg DAILY DARIEN Administration Vitamin D 125 mcg 09/01/25 09:00 09/10/25 09:36 Cholecalciferol (Vitamin D3) 125 Mcg (5,000 Units) Tablet PO 125 mcg DAILY DARIEN Administration Radiology Results: ITS Impressions Head CT 09/03/25 06:23 IMPRESSION: 1. No acute intracranial findings. Head/Neck CTA 09/03/25 06:30 IMPRESSION: CT HEAD: 1. No acute intracranial findings. CTA NECK: 1. Motion artifact along carotid bulbs. Stenosis or even dissection not excluded. Recommend carotid ultrasound. CTA HEAD: 1. No large vessel arterial occlusive disease or other acute findings. 2. No aneurysms. Chest CT 09/03/25 07:26 IMPRESSION: 1. Significant decrease in lung volumes with prominent dependent atelectasis including partial collapse of the bilateral lower lobes. Superimposed pneumonia not excludable. 2. No significant change in small left and moderate-sized right pleural effusions. 3. Moderate amount of ascites in the upper abdomen. 4. Scattered sclerotic bone lesions consistent with known metastatic prostate cancer and with chronic pathologic fracture at T10. Carotid Doppler Study 09/03/25 17:25 IMPRESSION: 1. >=70% (but less than near occlusion) stenosis in the right internal carotid artery. 2. >=70% (but less than near occlusion) stenosis in the left internal carotid artery. 3. The degree of stenosis indicated by the increased velocities is greater than would be expected given the amount of calcified atherosclerotic plaque evident on the prior CT angiogram. This suggests that the lower density linear filling defects at the bilateral carotid bulbs seen on the prior CT angiogram are not artifactual and likely to represent small dissection flaps. Abdomen X-Ray 09/04/25 07:07 IMPRESSION: 1: NG tube tip in the stomach. 2: Bibasilar airspace disease may represent edema or pneumonia. Chest X-Ray 09/09/25 08:06 Impression: Basilar probable pneumonia. The findings appear slightly improved. Labs Labs: Laboratory Results - last 24 hr 09/04/25 09/09/25 09/09/25 09:20 15:39 20:02 POC Capillary Glucose 73 72 Magnesium Pneumocystis Source Comment Pneumocystis DNA (PCR) Negative Pneumocyst Special Info Not Reportable 09/09/25 09/10/25 09/10/25 23:35 04:11 08:05 POC Capillary Glucose 78 79 84 Magnesium Pneumocystis Source Pneumocystis DNA (PCR) Pneumocyst Special Info 09/10/25 09/10/25 09:57 11:36 POC Capillary Glucose 89 Magnesium 2.0 Pneumocystis Source Pneumocystis DNA (PCR) Pneumocyst Special Info
[2025-09-10 15:12] LABS: Hematocrit 29.7 % (42.0-52.0); Hemoglobin 9.3 g/dL (14.0-18.0); Mean Corpuscular HGB Conc 31.3 g/dl (32-36); Mean Corpuscular Hemoglobin 31.3 pg (26-34); Mean Corpuscular Volume 100.0 fl (80-100); Platelet Count Result 146 k/mm3 (150-375); Red Blood Count 2.97 M/mm3 (4.6-6.20); White Blood Count 12.0 K/mm3 (4.5-10.0)
[2025-09-10 15:26] LABS: Anion Gap 4 mmol/L (4-12); Blood Urea Nitrogen 30 mg/dL (9-20); Calcium 7.7 mg/dL (8.4-10.2); Carbon Dioxide 29 mmol/L (22-30); Chloride 108 mmol/L (98-107); Estimated CRCL calculation 78 ml/min; Estimated Glomerular Filt Rate > 60; Glucose 74 mg/dL (65-110); Potassium 3.7 mmol/L (3.4-5.0); Sodium 141 mmol/L (137-145)
--- NOTE | 2025-09-10 15:43 | PM.IMPN ---
Progress Note: A&P Assessment and Plan (1) Septic shock: Code(s): A41.9 - Sepsis, unspecified organism; R65.21 - Severe sepsis with septic shock Status: Acute Assessment and Plan: 09/03/2025: Patient was transferred from medical floor to ICU where he was intubated, found to be hypotensive, received albumin -and IV fluid bolus, started on Levophed -patient does have a port, will use that for the pressors -wean Levophed to maintain mean arterial MAP > 65 mmHg, SBP > 100 mmHg -patient was on azithromycin, cefepime and vancomycin per Infectious Disease -09/03: Switch cefepime to meropenem, also discussed with Infectious Disease and micafungin was added -currently on meropenem, vancomycin micafungin, (completed a course of azithromycin) -micafungin for balanitis per Infectious Disease -08/30: Blood cultures negative x2 -09/03: Blood cultures obtained and pending (2) Acute respiratory failure: Code(s): J96.00 - Acute respiratory failure, unspecified whether with hypoxia or hypercapnia Status: Acute Assessment and Plan: Patient is transferred from medical floor after being found hypoxic, hypotensive and less responsive/altered mental status -increasing O2 requirements on Airvo -09/03: Patient was intubated by ER physician in the ICU -currently on CMV mode of ventilation, peep of 5, 35% FiO2. -ABGs, chest x-ray and CT chest reviewed. -continue bronchodilator -09/03: Status post right thoracentesis this by ER physician, drained 600 mL yellow sticky fluid 09/03/2025: CT chest with contrast -IMPRESSION: 1. Significant decrease in lung volumes with prominent dependent atelectasis including partial collapse of the bilateral lower lobes. Superimposed pneumonia not excludable. 2. No significant change in small left and moderate-sized right pleural effusions. 3. Moderate amount of ascites in the upper abdomen. 4. Scattered sclerotic bone lesions consistent with known metastatic prostate cancer and with chronic pathologic fracture at T10. 09/02: IMPRESSION: Moderate loculated right pleural effusion and small left pleural effusion. Patchy infiltrates are present bilaterally. There is mediastinal lymphadenopathy. Sclerotic changes within the T9 vertebral body suggestive of metastasis. (3) Pleural effusion: Code(s): J90 - Pleural effusion, not elsewhere classified Status: Acute Assessment and Plan: 09/03: Thoracentesis perform a ER physician early hours with a removal of 600 mL in yellow sticky fluid -pleural fluid LDH, protein are pending, -fluid gram stain did not show any organism -according the hospitalist, pleural fluid looked like an exudate. Will confirm with pleural fluid studies -continue antibiotics as above (4) Pneumonia: Code(s): J18.9 - Pneumonia, unspecified organism Status: Acute Assessment and Plan: Consolidation noted on CT scan of the chest -continue antibiotics as above -appreciate pulmonology evaluation and recommendations, thoracentesis scheduled for today, 09/04 (5) Encephalopathy: Code(s): G93.40 - Encephalopathy, unspecified Status: Acute Assessment and Plan: Encephalopathy could be multifactorial, septic shock, hypotension, hypoxia -currently intubated, not on any sedation. -will maintain Euthermia, adequate blood pressures, adequate oxygenation -09/03: patient did wake up and follows simple commands IMPRESSION: CT HEAD: 1. No acute intracranial findings. CTA NECK: 1. Motion artifact along carotid bulbs. Stenosis or even dissection not excluded. Recommend carotid ultrasound. CTA HEAD: 1. No large vessel arterial occlusive disease or other acute findings. 2. No aneurysms. (6) Coagulopathy: Code(s): D68.9 - Coagulation defect, unspecified Status: Acute Assessment and Plan: PTT elevated, continue to monitor, patient not on any anticoagulation at this time (7) Anemia: Code(s): D64.9 - Anemia, unspecified Status: Acute Assessment and Plan: 09/03: Hemoglobin dropped to 6.9 this morning from 7.5. Transfused 1 unit of packed RBCs -monitor H&H (8) Protein calorie malnutrition: Code(s): E46 - Unspecified protein-calorie malnutrition Status: Acute Assessment and Plan: Protein calorie malnutrition, BMI of 23.6 -likely moderate protein calorie malnutrition -will start trickle tube feeds -phosphorus was repleted (9) Metastatic malignant neoplasm to prostate: Code(s): C79.82 - Secondary malignant neoplasm of genital organs Status: Acute Assessment and Plan: Patient has metastatic prostate cancer, being treated by Dr. Walsh with palliative chemotherapy (10) Candidal balano-posthitis: Code(s): B37.49 - Other urogenital candidiasis Status: Acute Assessment and Plan: Continue micafungin (11) COPD (chronic obstructive pulmonary disease): Code(s): J44.9 - Chronic obstructive pulmonary disease, unspecified Status: Acute Assessment and Plan: Continue DuoNebs, on mechanical ventilation Plan patient with metastatic prostate cancer presented with weakness and fever, with neutropenia 2/2 chemotherapy, initially patient was admitted on medical floor, his symptoms worsen patient was transferred to ICU and currently intubated, patient is found to have pneumonia, patient is being treated meropenem, and vancomycin, patient is also has candidal balano-posthitis and being treated with fluconazole, patient neutropenia has resolved, patient is by starcher and tenter range feeder, 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 on 09/08 patient clinical symptoms were improving, as well CXR and his ABG, patient was given SBT and was successful and was extubated, patient is now in IMU, stats doing better now on RA, patient remains clinically stable. patient was seen by ID, patient all culture no growth so far, and ID recommended to dc all antibiotics and monitor patient off the abx, today patient had MDS and failed and uable to take any PO, if family is okay will start with NGTube feeding, and if there is no improvement, will consult GI for PEG. Subjective Date/time seen: 09/10/25 15:43 Interval history: presented to the with Gen weakness and fever H&P-Narrative: 75yo M with Prostate ca on Chemo presented to [facility] Er with generalized weakness. patinet noted his appetite has been very poor the last week mostly due to oral pain. Otherwise noted he was recently diagnosed of yeast balanitis by his PCP and was placed on medication however no respite from the symtptoms . Otherwise denies any chest pain, SOB, abd pain, diarrhea or focal symptoms. Fever noted at home ER evaluation notable for possible 2, temperature 98.6?, blood pressure 130/46, saturating 94% on room air. Labs notable for WBC 0.7, hemoglobin 7.9, platelets 112, sodium 129, MRSA negative. Chest x-ray showed a possible pneumonia. patient with metastatic prostate cancer presented with weakness and fever, with neutropenia 2/2 chemotherapy, initially patient was admitted on medical floor, his symptoms worsen patient was transferred to ICU and currently intubated, patient is found to have pneumonia, patient is being treated meropenem, and vancomycin, patient is also has candidal balano-posthitis and being treated with fluconazole, patient neutropenia has resolved, patient is by starcher and tenter range feeder, 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 on 09/08 patient clinical symptoms were improving, as well CXR and his ABG, patient was given SBT and was successful and was extubated, patient is now in IMU, stats doing better now on RA, patient remains clinically stable. patient was seen by ID, patient all culture no growth so far, and ID recommended to dc all antibiotics and monitor patient off the abx, today patient had MDS and failed and uable to take any PO, if family is okay will start with NGTube feeding, and if there is no improvement, will consult GI for PEG. Review of Systems Review of Systems: Other systems are reviewed and negative except as noted in history above. Exam Narrative: Patient is comfortable, NAD HEENT: eyes are clear and none icteric LUNGS:CTA HEART: RR S1S2 ABD: BS+, Soft and nontender Lower extremities: no edema SKIN: nonjaundiced Neuro: Still sedated Objective Data Vital Signs Vital Signs: Vital Signs - 24 hr 09/09/25 15:59 09/09/25 16:00 09/09/25 16:00 Temperature 36.7 C Pulse Rate 111 H 107 H Respiratory Rate 18 Blood Pressure 124/60 Pulse Oximetry 97 Oxygen Delivery Room Air 09/09/25 18:00 09/09/25 19:53 09/09/25 20:00 Temperature 36.9 C Pulse Rate 99 100 Respiratory Rate 18 Blood Pressure 105/52 L Pulse Oximetry 95 Oxygen Delivery Room Air 09/09/25 20:00 09/09/25 20:31 09/09/25 22:06 Temperature Pulse Rate 102 H 104 H 99 Respiratory Rate Blood Pressure Pulse Oximetry Oxygen Delivery 09/10/25 00:00 09/10/25 00:00 09/10/25 00:00 Temperature 36.9 C Pulse Rate 92 90 Respiratory Rate 23 H Blood Pressure 102/47 L Pulse Oximetry 100 Oxygen Delivery BiPAP 09/10/25 02:00 09/10/25 04:00 09/10/25 04:00 Temperature Pulse Rate 99 77 Respiratory Rate Blood Pressure Pulse Oximetry Oxygen Delivery Room Air 09/10/25 04:00 09/10/25 05:43 09/10/25 08:00 Temperature 36.8 C 36.9 C Pulse Rate 100 99 106 H Respiratory Rate 20 22 H Blood Pressure 111/54 L 132/70 Pulse Oximetry 97 98 Oxygen Delivery 09/10/25 08:00 09/10/25 09:36 09/10/25 09:55 Temperature Pulse Rate 106 H 101 H Respiratory Rate Blood Pressure Pulse Oximetry Oxygen Delivery Room Air 09/10/25 10:00 09/10/25 11:37 09/10/25 12:00 Temperature 36.8 C Pulse Rate 108 H 89 Respiratory Rate 22 H Blood Pressure 98/55 L Pulse Oximetry 92 Oxygen Delivery Room Air 09/10/25 12:00 Temperature Pulse Rate 81 Respiratory Rate Blood Pressure Pulse Oximetry Oxygen Delivery Intake/Output Intake/Output: Intake & Output 09/07/25 09/08/25 09/09/25 09/10/25 23:59 23:59 23:59 23:59 Intake Total 1149.5 1137.8 1024 150 Output Total 1 5275 1725 125 Balance -875.5 -2737.2 -701 25 Meds/Results Medications: Active Medications Generic Name Dose Route Start Last Admin Trade Name Freq PRN Reason Stop Dose Admin Acetaminophen 650 mg 08/30/25 10:58 09/09/25 15:33 Acetaminophen 325 Mg Tablet PO 650 mg Q4H PRN Administration Mild Pain (1-3) or Fever Albuterol/Ipratropium 3 ml 09/09/25 08:08 Ipratropium 0.5 Mg/Albuterol Sulfate 2.5 Mg (Base) Ampul.Neb 3 Ml INHALATION Q6HRT PRN wheezing Artificial Tears 1 drop 09/09/25 08:06 09/09/25 09:00 Artificial Tears Ophth Soln 15 Ml Bottle EACH EYE 1 drop QID PRN Administration Dry Eye(s) Lidocaine HCl 30 ml/ Al Hydrox 0 ml 08/30/25 17:00 09/03/25 07:00 /Mg Hydrox/Simethicone 30 ml/ PO Not Given Diphenhydramine HCl 75 mg Q4HWA DARIEN On Hold: 09/03/25 07:00 Cyanocobalamin 500 mcg 09/10/25 09:00 09/10/25 09:37 Cyanocobalamin 500 Mcg Tablet PO 500 mcg DAILY DARIEN Administration Dextrose 12.5 gm 09/03/25 10:06 Dextrose 50% 25 Gm/50 Ml Syringe IV PUSH PRN PRN Hypoglycemia Protocol Fenofibrate 145 mg 09/01/25 09:00 09/10/25 09:36 Fenofibrate 145 Mg Tablet PO 145 mg QAM DARIEN Administration Ferrous Sulfate 325 mg 09/10/25 09:00 09/10/25 09:37 Ferrous Sulfate 325 Mg Tablet PO 10/10/25 08:59 325 mg DAILY DARIEN Administration Folic Acid 0.4 mg 09/10/25 09:00 09/10/25 09:36 Folic Acid 0.4 Mg Tablet PO 10/10/25 08:59 0.4 mg DAILY DARIEN Administration Furosemide 40 mg 09/09/25 09:00 09/10/25 09:37 Furosemide Inj 40 Mg/4 Ml Vial IV PUSH 40 mg DAILY DARIEN Administration Glucagon 1 mg 09/03/25 10:06 Glucagon For Inj 1 Mg Vial IM PRN PRN Hypoglycemia Protocol Glucose 15 gm 09/03/25 10:06 Glucose Oral Gel 15 Gm Of Glucse In 37.5 Gm Tube PO PRN PRN Hypoglycemia Protocol Heparin Sodium (Beef Lung) 50 units 09/03/25 09:00 09/10/25 09:37 Heparin Flush 50 Units/5 Ml Syringe IV PUSH 50 units QAM DARIEN Administration Heparin Sodium (Beef Lung) 50 units 09/03/25 07:03 Heparin Flush 50 Units/5 Ml Syringe IV PUSH PRN PRN after intermittent infusion Heparin Sodium (Beef Lung) 50 units 09/03/25 07:03 Heparin Flush 50 Units/5 Ml Syringe IV PUSH PRN PRN after blood draws Heparin Sodium (Porcine) 500 units 09/03/25 07:03 Heparin Sodium Lock Flush 500 Units/5 Ml Syringe IV PUSH PRN PRN see comments below Dextrose 1,000 mls @ 100 mls/hr 09/03/25 10:06 Dextrose 5% 1,000 Ml IVPB PRN PRN Hypoglycemia Protocol Insulin Aspart 2 - 5 units 09/03/25 10:10 09/10/25 12:54 Insulin Aspart (*Bkc) 100 Units/Ml SUB-Q Not Given Q4HR DARIEN Protocol Lidocaine HCl 1 applic 08/30/25 20:34 08/31/25 09:34 Lidocaine 4% Soln 50 Ml Btl TOPICAL 1 applic PRN PRN Administration Pain Lidocaine/Prilocaine 1 each 09/09/25 14:12 Lidocaine/Prilocaine Cream 2.5-2.5% Tube TOPICAL DAILY PRN Pain Loratadine 10 mg 08/31/25 21:00 09/10/25 09:36 Loratadine 10 Mg Tablet PO 10 mg QAM DRAIEN Administration Metoprolol Tartrate 25 mg 09/09/25 09:00 09/10/25 09:36 Metoprolol Tartrate 25 Mg Tablet PO 25 mg Q12HR [facility] Administration Miconazole Nitrate 1 applic 09/10/25 21:00 Miconazole Nitrate 2% Cream 30 Gm Tube TOPICAL 10/09/25 16:59 Q12HR [facility] Miscellaneous Information 0 each 09/09/25 00:01 Nonformulary Drug (Mesalamine [Lialda] 1.2 Gram Tablet,Delayed Release (Dr/Ec)) Can Patien XX 10/09/25 00:00 CLARIFY [facility] Multivitamins Therapeutic 1 tablet 09/10/25 09:00 09/10/25 09:36 Multivitamins Therapeutic Tab (*Bkc) PO 1 tablet DAILY [facility] Administration Mupirocin 1 applic 09/10/25 21:00 Mupirocin 2% Oint 22 Gm Tube TOPICAL Q12HR [facility] Non-Formulary Medication 2.4 gm 09/10/25 09:00 Mesalamine [Lialda] PO 10/10/25 08:59 DAILY [facility] Ondansetron HCl 8 mg 09/09/25 14:12 Ondansetron Hcl Odt 4 Mg Tablet PO Q8-12H PRN nausea and vomiting Pantoprazole Sodium 40 mg 09/03/25 21:00 09/10/25 09:37 Pantoprazole Sodium Iv 40 Mg Vial IV PUSH 40 mg Q12HR DARIEN Administration Prednisone 5 mg 09/09/25 21:00 09/10/25 09:36 Prednisone 5 Mg Tablet PO 5 mg Q12HR DARIEN Administration Simvastatin 20 mg 09/09/25 21:00 09/09/25 20:31 Simvastatin 20 Mg Tablet PO 20 mg HS [facility] Administration Sodium Chloride 10 ml 09/03/25 14:00 09/10/25 14:42 Central Line Flush IV PUSH Not Given Q8HR [facility] Tamsulosin HCl 0.4 mg 09/01/25 09:00 09/10/25 09:36 Tamsulosin Hcl 0.4 Mg Capsule PO 0.4 mg DAILY DARIEN Administration Terbinafine HCl 250 mg 09/10/25 09:00 09/10/25 09:36 Terbinafine Hcl 250 Mg Tablet PO 250 mg DAILY DARIEN Administration Vitamin D 125 mcg 09/01/25 09:00 09/10/25 09:36 Cholecalciferol (Vitamin D3) 125 Mcg (5,000 Units) Tablet PO 125 mcg DAILY DARIEN Administration Radiology Results: ITS Impressions Head CT 09/03/25 06:23 IMPRESSION: 1. No acute intracranial findings. Head/Neck CTA 09/03/25 06:30 IMPRESSION: CT HEAD: 1. No acute intracranial findings. CTA NECK: 1. Motion artifact along carotid bulbs. Stenosis or even dissection not excluded. Recommend carotid ultrasound. CTA HEAD: 1. No large vessel arterial occlusive disease or other acute findings. 2. No aneurysms. Chest CT 09/03/25 07:26 IMPRESSION: 1. Significant decrease in lung volumes with prominent dependent atelectasis including partial collapse of the bilateral lower lobes. Superimposed pneumonia not excludable. 2. No significant change in small left and moderate-sized right pleural effusions. 3. Moderate amount of ascites in the upper abdomen. 4. Scattered sclerotic bone lesions consistent with known metastatic prostate cancer and with chronic pathologic fracture at T10. Carotid Doppler Study 09/03/25 17:25 IMPRESSION: 1. >=70% (but less than near occlusion) stenosis in the right internal carotid artery. 2. >=70% (but less than near occlusion) stenosis in the left internal carotid artery. 3. The degree of stenosis indicated by the increased velocities is greater than would be expected given the amount of calcified atherosclerotic plaque evident on the prior CT angiogram. This suggests that the lower density linear filling defects at the bilateral carotid bulbs seen on the prior CT angiogram are not artifactual and likely to represent small dissection flaps. Abdomen X-Ray 09/04/25 07:07 IMPRESSION: 1: NG tube tip in the stomach. 2: Bibasilar airspace disease may represent edema or pneumonia. Chest X-Ray 09/09/25 08:06 Impression: Basilar probable pneumonia. The findings appear slightly improved. Modified Barium Swallow 09/10/25 15:04 IMPRESSION: Pharyngeal dysphagia and laryngeal penetration without aspiration. Please correlate with speech pathologist findings and specific feeding recommendations. Labs Labs: Laboratory Results - last 24 hr 1009/09/25 09/09/25 09:20 15:39 20:02 WBC RBC Hgb Hct MCV MCH MCHC RDW Plt Count MPV Sodium Potassium Chloride Carbon Dioxide Anion Gap BUN Creatinine Estim Creat Clear Calc Estimated GFR Glucose POC Capillary Glucose 73 72 Calcium Magnesium Pneumocystis Source Comment Pneumocystis DNA (PCR) Negative Pneumocyst Special Info Not Reportable 09/09/25 09/10/25 09/10/25 23:35 04:11 08:05 WBC RBC Hgb Hct MCV MCH MCHC RDW Plt Count MPV Sodium Potassium Chloride Carbon Dioxide Anion Gap BUN Creatinine Estim Creat Clear Calc Estimated GFR Glucose POC Capillary Glucose 78 79 84 Calcium Magnesium Pneumocystis Source Pneumocystis DNA (PCR) Pneumocyst Special Info 09/10/25 09/10/25 09/10/25 09:51 09:57 11:36 WBC 12.0 H RBC 2.97 L Hgb 9.3 L Hct 29.7 L MCV 100.0 MCH 31.3 MCHC 31.3 L RDW 19.9 H Plt Count 146 L MPV 11.7 H Sodium 141 Potassium 3.7 Chloride 108 H Carbon Dioxide 29 Anion Gap 4 BUN 30 H Creatinine 0.68 L Estim Creat Clear Calc 78 Estimated GFR > 60 Glucose 74 POC Capillary Glucose 89 Calcium 7.7 L Magnesium 2.0 Pneumocystis Source Pneumocystis DNA (PCR) Pneumocyst Special Info Quality VTE Prophylaxis VTE prophylaxis: mechanical ordered
--- NOTE | 2025-09-10 16:05 | PCSTNOTE ---
Please refer to the Modified Barium Swallow Evaluation in the EMR. The patient is a 70 year old male referred for a MBS study based on noted CSA at the BSE for thin and thickened liquids. Oral Stage: Timely oral preparation and transit all consistencies. Pharyngeal stage: When presented tsp amounts thin and mildly thick liquid barium laryngeal penetration noted due to reduced laryngeal elevation and reduced to no epiglottic inversion. The patient was viewed to have moderate to severe residual in the valleculae for all consistencies dur to reduced tongue base retraction and reduced to no epiglottic inversion. The patient was cued to perform 2 repeat dry swallows for each tsp or controlled cup trial presented but still had moderate residual remaining in the valleculae. The amount of residual that remained within the valleculae placed patient at at high risk for further penetration/aspiration. When cued to cough and clear penetrated material the patient exhibited a weak cough and was unable to clear/eject penetrated material. Mild residual remained within the valleculae across consistencies secondary to cricopharyngeal dysfunction and mild coated noted on the pharyngeal wall with thicker consistencies due to reduced pharyngeal contraction. Recommend: NPO with alternate means of nutrition considered. Note* If family/patient does not opt for alternate means of nutrition would recommend following diet option but cannot rule out further aspiration/penetration risk 1. Puree Level / 4 2. Moderately thick / Level 3 3. Tsp amounts only moderately thick and puree 4. Three swallows for each tsp amount moderately thick and puree 5. Slow rate of intake 6. Upright all meals and 30 minutes following 7. 1 on 1 Supervision
--- NOTE | 2025-09-10 17:15 | PC.NURSE ---
PT REFUSING NG TUBE. PT EDUCATED ON NUTRTITIONAL NEEDS AND SWALLOWING IMPAIRMENTS. PT VERBALIZED UNDERSTANDING. MD AWARE. FLUIDS STARTED. WATCH FOR OVERLOAD.
[2025-09-10] MEDS: DEXTROSE 5%/0.9% SOD CHL 500 ML 50 ML IV CONT (18:07)
--- NOTE | 2025-09-10 19:00 | PC.NURSE ---
This patient, Gume Roberson Jr., was transferred to [[facility] ] on 09/10/25 at 1900. Personal belongings sent with patient. Report given to [ dimitris]. Appropriate documentation sent with patient.
--- NOTE | 2025-09-10 19:01 | PC.NURSE ---
pt transferred in to room 240 via bed, reviewed plan of care and MD orders, pt resting comfortably
[2025-09-10] MEDS: METOPROLOL TARTRATE INJ 5 MG/5 ML VIAL IV PUSH (21:58)
[2025-09-11] VITALS (12 sets, daily range): BP systolic 100–123; BP diastolic 49–59; PULSE 94–112; RESP 16–18; TEMP 36–36.6; O2SAT 90–100
[2025-09-11] MEDS: DEXTROSE 5%/0.9% SOD CHL 1,000 ML 50 ML IV CONT (04:25)
[2025-09-11] MEDS: CENTRAL LINE FLUSH 10 ML IV PUSH ×2 (05:32→21:00)
[2025-09-11 06:19] LABS: Hematocrit 30.9 % (42.0-52.0); Hemoglobin 9.4 g/dL (14.0-18.0); Immature Granulocyte Percent A 1.6 % (0-0.5); Lymphocytes Absolute Auto 0.79 K/mm3 (0.9-3.2); Mean Corpuscular HGB Conc 30.4 g/dl (32-36); Mean Corpuscular Hemoglobin 30.4 pg (26-34); Mean Corpuscular Volume 100.0 fl (80-100); Nucleated Red Blood Cells Absolute Auto 0.000 K/mm3 (0.0-0.012); Nucleated Red Blood Cells Perc 0.0 % (0.0-0.2); Platelet Count Result 159 k/mm3 (150-375); Red Blood Count 3.09 M/mm3 (4.6-6.20); White Blood Count 10.7 K/mm3 (4.5-10.0)
[2025-09-11 06:37] LABS: Anion Gap 2 mmol/L (4-12); Blood Urea Nitrogen 33 mg/dL (9-20); Calcium 7.7 mg/dL (8.4-10.2); Carbon Dioxide 34 mmol/L (22-30); Chloride 108 mmol/L (98-107); Estimated CRCL calculation 87 ml/min; Estimated Glomerular Filt Rate > 60; Glucose 127 mg/dL (65-110); Potassium 3.3 mmol/L (3.4-5.0); Sodium 144 mmol/L (137-145)
[2025-09-11] MEDS: FUROSEMIDE INJ 40 MG/4 ML VIAL IV PUSH (10:31)
[2025-09-11] MEDS: PANTOPRAZOLE SODIUM IV 40 MG VIAL IV PUSH (10:31)
[2025-09-11] MEDS: MICONAZOLE NITRATE 2% CREAM 30 GM TUBE 1 APPLIC TOPICAL (10:32)
[2025-09-11] MEDS: MUPIROCIN 2% OINT 22 GM TUBE 1 APPLIC TOPICAL (10:32)
--- NOTE | 2025-09-11 12:03 | PM.IMPN ---
Progress Note: A&P Assessment and Plan (1) Septic shock: Code(s): A41.9 - Sepsis, unspecified organism; R65.21 - Severe sepsis with septic shock Status: Acute Assessment and Plan: 09/03/2025: Patient was transferred from medical floor to ICU where he was intubated, found to be hypotensive, received albumin -and IV fluid bolus, started on Levophed -patient does have a port, will use that for the pressors -wean Levophed to maintain mean arterial MAP > 65 mmHg, SBP > 100 mmHg -patient was on azithromycin, cefepime and vancomycin per Infectious Disease -09/03: Switch cefepime to meropenem, also discussed with Infectious Disease and micafungin was added -currently on meropenem, vancomycin micafungin, (completed a course of azithromycin) -micafungin for balanitis per Infectious Disease -08/30: Blood cultures negative x2 -09/03: Blood cultures obtained and pending (2) Acute respiratory failure: Code(s): J96.00 - Acute respiratory failure, unspecified whether with hypoxia or hypercapnia Status: Acute Assessment and Plan: Patient is transferred from medical floor after being found hypoxic, hypotensive and less responsive/altered mental status -increasing O2 requirements on Airvo -09/03: Patient was intubated by ER physician in the ICU -currently on CMV mode of ventilation, peep of 5, 35% FiO2. -ABGs, chest x-ray and CT chest reviewed. -continue bronchodilator -09/03: Status post right thoracentesis this by ER physician, drained 600 mL yellow sticky fluid 09/03/2025: CT chest with contrast -IMPRESSION: 1. Significant decrease in lung volumes with prominent dependent atelectasis including partial collapse of the bilateral lower lobes. Superimposed pneumonia not excludable. 2. No significant change in small left and moderate-sized right pleural effusions. 3. Moderate amount of ascites in the upper abdomen. 4. Scattered sclerotic bone lesions consistent with known metastatic prostate cancer and with chronic pathologic fracture at T10. 09/02: IMPRESSION: Moderate loculated right pleural effusion and small left pleural effusion. Patchy infiltrates are present bilaterally. There is mediastinal lymphadenopathy. Sclerotic changes within the T9 vertebral body suggestive of metastasis. 09/11/2025 Resolved (3) Pleural effusion: Code(s): J90 - Pleural effusion, not elsewhere classified Status: Acute Assessment and Plan: 09/03: Thoracentesis perform a ER physician early hours with a removal of 600 mL in yellow sticky fluid -pleural fluid LDH, protein are pending, -fluid gram stain did not show any organism -according the hospitalist, pleural fluid looked like an exudate. Will confirm with pleural fluid studies -continue antibiotics as above 09/11/2025 Continue to monitor, stable (4) Pneumonia: Code(s): J18.9 - Pneumonia, unspecified organism Status: Acute Assessment and Plan: Consolidation noted on CT scan of the chest -continue antibiotics as above -appreciate pulmonology evaluation and recommendations, thoracentesis scheduled for today, 09/0409/11/2025 Finished course of antibiotic. Will monitor closely. (5) Encephalopathy: Code(s): G93.40 - Encephalopathy, unspecified Status: Acute Assessment and Plan: Encephalopathy could be multifactorial, septic shock, hypotension, hypoxia -currently intubated, not on any sedation. -will maintain Euthermia, adequate blood pressures, adequate oxygenation -09/03: patient did wake up and follows simple commands IMPRESSION: CT HEAD: 1. No acute intracranial findings. CTA NECK: 1. Motion artifact along carotid bulbs. Stenosis or even dissection not excluded. Recommend carotid ultrasound. CTA HEAD: 1. No large vessel arterial occlusive disease or other acute findings. 2. No aneurysms. (6) Coagulopathy: Code(s): D68.9 - Coagulation defect, unspecified Status: Acute Assessment and Plan: PTT elevated, continue to monitor, patient not on any anticoagulation at this time (7) Anemia: Code(s): D64.9 - Anemia, unspecified Status: Acute Assessment and Plan: Stable. Monitor closely (8) Protein calorie malnutrition: Code(s): E46 - Unspecified protein-calorie malnutrition Status: Acute Assessment and Plan: Scheduled for G-tube placement. (9) Metastatic malignant neoplasm to prostate: Code(s): C79.82 - Secondary malignant neoplasm of genital organs Status: Acute Assessment and Plan: Patient has metastatic prostate cancer, being treated by Dr. Walsh with palliative chemotherapy (10) Candidal balano-posthitis: Code(s): B37.49 - Other urogenital candidiasis Status: Acute Assessment and Plan: Continue current treatment. (11) COPD (chronic obstructive pulmonary disease): Code(s): J44.9 - Chronic obstructive pulmonary disease, unspecified Status: Acute Assessment and Plan: Continue DuoNebs, on mechanical ventilation Plan patient with metastatic prostate cancer presented with weakness and fever, with neutropenia 2/2 chemotherapy, initially patient was admitted on medical floor, his symptoms worsen patient was transferred to ICU and currently intubated, patient is found to have pneumonia, patient is being treated meropenem, and vancomycin, patient is also has candidal balano-posthitis and being treated with fluconazole, patient neutropenia has resolved, patient is by financial investment manager, 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 on 09/08 patient clinical symptoms were improving, as well CXR and his ABG, patient was given SBT and was successful and was extubated, patient is now in IMU, stats doing better now on RA, patient remains clinically stable. patient was seen by ID, patient all culture no growth so far, and ID recommended to dc all antibiotics and monitor patient off the abx, today patient had MDS and failed and uable to take any PO, Family agreed for G-tube placement. Will consult GI. Subjective Date/time seen: 09/11/25 12:03 Interval history: Patient was seen during the morning rounds today. Failed swallow evaluation. No shortness of breath or chest pain. No new overnight complaints. Review of Systems Review of Systems: Other systems are reviewed and negative except as noted in history above. ROS unobtainable: Yes unobtainable due to endotracheal tube, unobtainable due to medical condition and unobtainable due to mental status Exam Narrative: Patient is comfortable, NAD HEENT: eyes are clear and none icteric LUNGS:CTA HEART: RR S1S2 ABD: BS+, Soft and nontender Lower extremities: no edema SKIN: nonjaundiced Neuro: Still sedated Objective Data Vital Signs Vital Signs: Vital Signs - 24 hr 09/10/25 16:00 09/10/25 16:00 09/10/25 18:00 Temperature 36.8 C Pulse Rate 101 H 96 106 H Respiratory Rate 20 Blood Pressure 116/53 L Pulse Oximetry 93 Oxygen Delivery 09/10/25 20:00 09/10/25 20:25 09/10/25 21:25 Temperature Pulse Rate 100 110 H Respiratory Rate Blood Pressure Pulse Oximetry Oxygen Delivery Room Air 09/10/25 21:58 09/11/25 00:00 09/11/25 00:00 Temperature 36.5 C Pulse Rate 107 H 104 H 103 H Respiratory Rate 18 Blood Pressure 110/55 L Pulse Oximetry 100 Oxygen Delivery 09/11/25 04:00 09/11/25 06:03 09/11/25 08:00 Temperature 36.6 C Pulse Rate 98 97 110 H Respiratory Rate 18 Blood Pressure 115/55 L Pulse Oximetry 90 Oxygen Delivery 09/11/25 08:10 09/11/25 08:10 Temperature Pulse Rate 97 Respiratory Rate Blood Pressure Pulse Oximetry Oxygen Delivery Room Air Intake/Output Intake/Output: Intake & Output 09/08/25 09/09/25 09/10/25 09/11/25 23:59 23:59 23:59 23:59 Intake Total 1137.8 1024 150 0 Output Total 3875 1725 125 600 Balance -2737.2 -701 25 -600 Meds/Results Medications: Active Medications Generic Name Dose Route Start Last Admin Trade Name Freq PRN Reason Stop Dose Admin Acetaminophen 650 mg 08/30/25 10:58 09/09/25 15:33 Acetaminophen 325 Mg Tablet PO 650 mg Q4H PRN Administration Mild Pain (1-3) or Fever Albuterol/Ipratropium 3 ml 09/09/25 08:08 Ipratropium 0.5 Mg/Albuterol Sulfate 2.5 Mg (Base) Ampul.Neb 3 Ml INHALATION Q6HRT PRN wheezing Artificial Tears 1 drop 09/09/25 08:06 09/09/25 09:00 Artificial Tears Ophth Soln 15 Ml Bottle EACH EYE 1 drop QID PRN Administration Dry Eye(s) Lidocaine HCl 30 ml/ Al Hydrox 0 ml 08/30/25 17:00 09/03/25 07:00 /Mg Hydrox/Simethicone 30 ml/ PO Not Given Diphenhydramine HCl 75 mg Q4HWA DARIEN On Hold: 09/03/25 07:00 Cyanocobalamin 500 mcg 09/10/25 09:00 09/11/25 10:27 Cyanocobalamin 500 Mcg Tablet PO Not Given DAILY DARIEN Dextrose 12.5 gm 09/03/25 10:06 Dextrose 50% 25 Gm/50 Ml Syringe IV PUSH PRN PRN Hypoglycemia Protocol Fenofibrate 145 mg 09/01/25 09:00 09/11/25 10:26 Fenofibrate 145 Mg Tablet PO Not Given QAM DARIEN Ferrous Sulfate 325 mg 09/10/25 09:00 09/11/25 10:27 Ferrous Sulfate 325 Mg Tablet PO 10/10/25 08:59 Not Given DAILY DARIEN Folic Acid 0.4 mg 09/10/25 09:00 09/11/25 10:27 Folic Acid 0.4 Mg Tablet PO 10/10/25 08:59 Not Given DAILY DARIEN Furosemide 40 mg 09/09/25 09:00 09/11/25 10:31 Furosemide Inj 40 Mg/4 Ml Vial IV PUSH 40 mg DAILY DARIEN Administration Glucagon 1 mg 09/03/25 10:06 Glucagon For Inj 1 Mg Vial IM PRN PRN Hypoglycemia Protocol Glucose 15 gm 09/03/25 10:06 Glucose Oral Gel 15 Gm Of Glucse In 37.5 Gm Tube PO PRN PRN Hypoglycemia Protocol Heparin Sodium (Beef Lung) 50 units 09/03/25 09:00 09/11/25 10:32 Heparin Flush 50 Units/5 Ml Syringe IV PUSH Not Given QAM DARIEN Heparin Sodium (Beef Lung) 50 units 09/03/25 07:03 Heparin Flush 50 Units/5 Ml Syringe IV PUSH PRN PRN after intermittent infusion Heparin Sodium (Beef Lung) 50 units 09/03/25 07:03 Heparin Flush 50 Units/5 Ml Syringe IV PUSH PRN PRN after blood draws Heparin Sodium (Porcine) 500 units 09/03/25 07:03 Heparin Sodium Lock Flush 500 Units/5 Ml Syringe IV PUSH PRN PRN see comments below Dextrose 1,000 mls @ 100 mls/hr 09/03/25 10:06 Dextrose 5% 1,000 Ml IVPB PRN PRN Hypoglycemia Protocol Dextrose/Sodium Chloride 1,000 mls @ 50 mls/hr 09/11/25 04:10 09/11/25 04:25 Dextrose 5% Sodium Chloride 0.9% IV CONT 50 mls/hr .Q20H DARIEN Administration Insulin Aspart 2 - 5 units 09/03/25 10:10 09/11/25 10:26 Insulin Aspart (*Bkc) 100 Units/Ml SUB-Q Not Given Q4HR DARIEN Protocol Lidocaine HCl 1 applic 08/30/25 20:34 08/31/25 09:34 Lidocaine 4% Soln 50 Ml Btl TOPICAL 1 applic PRN PRN Administration Pain Lidocaine/Prilocaine 1 each 09/09/25 14:12 Lidocaine/Prilocaine Cream 2.5-2.5% Tube TOPICAL DAILY PRN Pain Loratadine 10 mg 08/31/25 21:00 09/11/25 10:17 Loratadine 10 Mg Tablet PO Not Given QAM [facility] Metoprolol Tartrate 25 mg 09/09/25 09:00 09/11/25 10:26 Metoprolol Tartrate 25 Mg Tablet PO Not Given Q12HR DARIEN Metoprolol Tartrate 5 mg 09/10/25 18:54 09/10/25 21:58 Metoprolol Tartrate Inj 5 Mg/5 Ml Vial IV PUSH 5 mg Q8HR PRN Administration Heart Rate- High Miconazole Nitrate 1 applic 09/10/25 21:00 09/11/25 10:32 Miconazole Nitrate 2% Cream 30 Gm Tube TOPICAL 10/09/25 16:59 1 applic Q12HR DARIEN Administration Miscellaneous Information 0 each 09/09/25 00:01 09/11/25 05:05 Nonformulary Drug (Mesalamine [Lialda] 1.2 Gram Tablet,Delayed Release (Dr/Ec)) Can Patien XX 10/09/25 00:00 Not Given CLARIFY [facility] Multivitamins Therapeutic 1 tablet 09/10/25 09:00 09/11/25 10:27 Multivitamins Therapeutic Tab (*Bkc) PO Not Given DAILY [facility] Mupirocin 1 applic 09/10/25 21:00 09/11/25 10:32 Mupirocin 2% Oint 22 Gm Tube TOPICAL 1 applic Q12HR DARIEN Administration Non-Formulary Medication 2.4 gm 09/10/25 09:00 Mesalamine [Lialda] PO 10/10/25 08:59 DAILY [facility] Ondansetron HCl 8 mg 09/09/25 14:12 Ondansetron Hcl Odt 4 Mg Tablet PO Q8-12H PRN nausea and vomiting Pantoprazole Sodium 40 mg 09/03/25 21:00 09/11/25 10:31 Pantoprazole Sodium Iv 40 Mg Vial IV PUSH 40 mg Q12HR DARIEN Administration Prednisone 5 mg 09/09/25 21:00 09/11/25 10:26 Prednisone 5 Mg Tablet PO Not Given Q12HR [facility] Simvastatin 20 mg 09/09/25 21:00 09/10/25 20:26 Simvastatin 20 Mg Tablet PO Not Given HS DARIEN Sodium Chloride 10 ml 09/03/25 14:00 09/11/25 05:32 Central Line Flush IV PUSH 10 ml Q8HR DARIEN Administration Tamsulosin HCl 0.4 mg 09/01/25 09:00 09/11/25 10:26 Tamsulosin Hcl 0.4 Mg Capsule PO Not Given DAILY DARIEN Terbinafine HCl 250 mg 09/10/25 09:00 09/11/25 10:27 Terbinafine Hcl 250 Mg Tablet PO Not Given DAILY DARIEN Vitamin D 125 mcg 09/01/25 09:00 09/11/25 10:17 Cholecalciferol (Vitamin D3) 125 Mcg (5,000 Units) Tablet PO Not Given DAILY [facility] Radiology Results: ITS Impressions Head CT 09/03/25 06:23 IMPRESSION: 1. No acute intracranial findings. Head/Neck CTA 09/03/25 06:30 IMPRESSION: CT HEAD: 1. No acute intracranial findings. CTA NECK: 1. Motion artifact along carotid bulbs. Stenosis or even dissection not excluded. Recommend carotid ultrasound. CTA HEAD: 1. No large vessel arterial occlusive disease or other acute findings. 2. No aneurysms. Chest CT 09/03/25 07:26 IMPRESSION: 1. Significant decrease in lung volumes with prominent dependent atelectasis including partial collapse of the bilateral lower lobes. Superimposed pneumonia not excludable. 2. No significant change in small left and moderate-sized right pleural effusions. 3. Moderate amount of ascites in the upper abdomen. 4. Scattered sclerotic bone lesions consistent with known metastatic prostate cancer and with chronic pathologic fracture at T10. Carotid Doppler Study 09/03/25 17:25 IMPRESSION: 1. >=70% (but less than near occlusion) stenosis in the right internal carotid artery. 2. >=70% (but less than near occlusion) stenosis in the left internal carotid artery. 3. The degree of stenosis indicated by the increased velocities is greater than would be expected given the amount of calcified atherosclerotic plaque evident on the prior CT angiogram. This suggests that the lower density linear filling defects at the bilateral carotid bulbs seen on the prior CT angiogram are not artifactual and likely to represent small dissection flaps. Abdomen X-Ray 09/04/25 07:07 IMPRESSION: 1: NG tube tip in the stomach. 2: Bibasilar airspace disease may represent edema or pneumonia. Chest X-Ray 09/09/25 08:06 Impression: Basilar probable pneumonia. The findings appear slightly improved. Modified Barium Swallow 09/10/25 15:04 IMPRESSION: Pharyngeal dysphagia and laryngeal penetration without aspiration. Please correlate with speech pathologist findings and specific feeding recommendations. Labs Labs: Laboratory Results - last 24 hr 09/10/25 09/10/25 09/10/25 09:51 11:36 15:50 WBC 12.0 H RBC 2.97 L Hgb 9.3 L Hct 29.7 L MCV 100.0 MCH 31.3 MCHC 31.3 L RDW 19.9 H Plt Count 146 L MPV 11.7 H Immature Gran % (Auto) Neut % (Auto) Lymph % (Auto) [place] % (Auto) Eos % (Auto) Baso % (Auto) Lymph # (Auto) [place] # (Auto) Eos # (Auto) Baso # (Auto) Abs Immat Gran (auto) Absolute Neuts (auto) Absolute Nucleated RBC Nucleated RBC % Sodium 141 Potassium 3.7 Chloride 108 H Carbon Dioxide 29 Anion Gap 4 BUN 30 H Creatinine 0.68 L Estim Creat Clear Calc 78 Estimated GFR > 60 Glucose 74 POC Capillary Glucose 89 85 Calcium 7.7 L 09/10/25 09/11/25 09/11/25 19:50 00:04 04:04 WBC RBC Hgb Hct MCV MCH MCHC RDW Plt Count MPV Immature Gran % (Auto) Neut % (Auto) Lymph % (Auto) [place] % (Auto) Eos % (Auto) Baso % (Auto) Lymph # (Auto) [place] # (Auto) Eos # (Auto) Baso # (Auto) Abs Immat Gran (auto) Absolute Neuts (auto) Absolute Nucleated RBC Nucleated RBC % Sodium Potassium Chloride Carbon Dioxide Anion Gap BUN Creatinine Estim Creat Clear Calc Estimated GFR Glucose POC Capillary Glucose 107 H 104 123 H Calcium 09/11/25 09/11/25 09/11/25 05:38 08:06 11:39 WBC 10.7 H RBC 3.09 L Hgb 9.4 L Hct 30.9 L MCV 100.0 MCH 30.4 MCHC 30.4 L RDW 19.3 H Plt Count 159 MPV 11.3 H Immature Gran % (Auto) 1.6 H Neut % (Auto) 81.6 H Lymph % (Auto) 7.4 L [place] % (Auto) 8.4 Eos % (Auto) 0.0 Baso % (Auto) 1.0 Lymph # (Auto) 0.79 L [place] # (Auto) 0.9 H Eos # (Auto) 0.0 Baso # (Auto) 0.1 Abs Immat Gran (auto) 0.17 H Absolute Neuts (auto) 8.7 H Absolute Nucleated RBC 0.000 Nucleated RBC % 0.0 Sodium 144 Potassium 3.3 L Chloride 108 H Carbon Dioxide 34 H Anion Gap 2 L BUN 33 H Creatinine 0.60 L Estim Creat Clear Calc 87 Estimated GFR > 60 Glucose 127 H POC Capillary Glucose 117 H 130 H Calcium 7.7 L Quality VTE Prophylaxis VTE prophylaxis: mechanical ordered
--- NOTE | 2025-09-11 12:54 | PCNFU ---
Nutrition Follow-Up Complete: Moderate protein calorie malnutrition related to inadequate energy intake as evidenced by reduced appetite and intake for greater than 1 month, a significant weight loss of -16% x 6 months, and clinical findings for moderate subcutaneous fat loss (cheeks) and moderate muscle wasting (scientology, clavicle). PO intake 50% or greater- Not able to meet goal PO. New goal: meet estimated protein energy needs. Goal: Pt current nutrition is NPO. Nutrition recommendation: Jevity 1.5 @ goal rate 55 ml/h with flushes 150 ml q 4 hours. If not able to place PEG today, recommend short term TPN Clinmix 5/15 @ 60 ml/h (or PPN Clinmix 4.24/5 @ 80ml/h) Last recorded weight is 77.1 kg. Bowel Motility: +1 09/09 Labs Reviewed: Hgb 9.4, Hct 30.9, K+ 3.3, BUN 33, Cre 0.6, Glu 127 Meds Noted: Protonix, Prenisone, folic acid Skin: No skin issues Additional Notes: Pt and family decided on PEG related to swallowing difficulty. RN says PEG may be placed today. If not, short-term PPN or TPN may be needed (reportedly pt has a chemo port). Recommend Jevity 1.5 @ 55 ml/h to provide 1815 kcal, 77 g protein, 920 ml free water. Flush 150 ml q 4 hours for total water 1820 ml/day. Monitor intake, wt, labs. Follow up in 5 days.
--- NOTE | 2025-09-11 13:08 | PCDIET ---
TUBE FEEDING RECOMMENDATION: Recommend Jevity 1.5 @ 55 ml/h to provide 1815 kcal, 77 g protein, 920 ml free water. Flush 150 ml q 4 hours for total water 1820 ml/day. Start at 20 ml/h and advance 10 ml q 4 hours till goal is reached, as tolerated.
--- NOTE | 2025-09-11 13:09 | WPDINFPN2 ---
Progress Note: A&P Assessment and Plan (1) Fever and neutropenia: Code(s): D70.9 - Neutropenia, unspecified; R50.81 - Fever presenting with conditions classified elsewhere Status: Acute (2) Pneumonia: Code(s): J18.9 - Pneumonia, unspecified organism Status: Acute (3) Stomatitis and mucositis: Code(s): K12.1 - Other forms of stomatitis; K12.30 - Oral mucositis (ulcerative), unspecified Status: Acute (4) Candidal balano-posthitis: Code(s): B37.49 - Other urogenital candidiasis Status: Acute (5) Septic shock: Code(s): A41.9 - Sepsis, unspecified organism; R65.21 - Severe sepsis with septic shock Status: Acute (6) Encephalopathy: Code(s): G93.40 - Encephalopathy, unspecified Status: Acute (7) Metastatic malignant neoplasm to prostate: Code(s): C79.82 - Secondary malignant neoplasm of genital organs Status: Acute Plan # Post chemotherapy neutropenia without fever -- neutropenia now resolved. +leukocytosis now but decreasing # original admission with Possible left lung base pneumonia. -- originally placed on cefepime, azithromycin, and vancomycin. # Development of severe sepsis with shock. on a pressor--resolved -- now associated with progressive respiratory disease including pleural effusions, pleural atelectasis, and bilateral pneumonitis--extubated and improving--now on room air -- no longer neutropenic but the above may have been developing while initially neutropenic. -- pleural fluid cultures and repeat blood cultures are unrevealing. Bronchoscopy cultures also unrevealing to date -- antibiotics have been broadened to Meropenem, vancomycin, and micafungin--now stopped # Post chemotherapy mucositis. # Balanitis. # Metastatic prostate cancer. RECOMMENDATIONS: Follow off abx. if new fever, restart meropenem. topical antifungal to penis d/w son at bedside d/w pharmacy staff Patient was seen via video telehealth consultation with the assistance of staff. Chart, data, and patient independently reviewed. Patient was located at [facility] while I was located in my [place] office. Received verbal consent from patient. Subjective Date/time seen: 09/11/25 13:09 Interval history: sleeping. no fever. son at bedside. Objective Data Vital Signs Vital Signs: Vital Signs - 24 hr 09/10/25 16:00 09/10/25 16:00 09/10/25 18:00 Temperature 36.8 C Pulse Rate 101 H 96 106 H Respiratory Rate 20 Blood Pressure 116/53 L Pulse Oximetry 93 Oxygen Delivery 09/10/25 20:00 09/10/25 20:25 09/10/25 21:25 Temperature Pulse Rate 100 110 H Respiratory Rate Blood Pressure Pulse Oximetry Oxygen Delivery Room Air 09/10/25 21:58 09/11/25 00:00 09/11/25 00:00 Temperature 36.5 C Pulse Rate 107 H 104 H 103 H Respiratory Rate 18 Blood Pressure 110/55 L Pulse Oximetry 100 Oxygen Delivery 09/11/25 04:00 09/11/25 06:03 09/11/25 08:00 Temperature 36.6 C Pulse Rate 98 97 110 H Respiratory Rate 18 Blood Pressure 115/55 L Pulse Oximetry 90 Oxygen Delivery 09/11/25 08:10 09/11/25 08:10 09/11/25 12:54 Temperature 36.0 C L Pulse Rate 97 94 Respiratory Rate 16 Blood Pressure 100/49 L Pulse Oximetry 98 Oxygen Delivery Room Air Intake/Output Intake/Output: Intake & Output 09/08/25 09/09/25 09/10/25 09/11/25 23:59 23:59 23:59 23:59 Intake Total 1137.8 1024 150 0 Output Total 3875 1725 125 600 Balance -2737.2 -701 25 -600 Meds/Results Medications: Active Medications Generic Name Dose Route Start Last Admin Trade Name Freq PRN Reason Stop Dose Admin Acetaminophen 650 mg 08/30/25 10:58 09/09/25 15:33 Acetaminophen 325 Mg Tablet PO 650 mg Q4H PRN Administration Mild Pain (1-3) or Fever Albuterol/Ipratropium 3 ml 09/09/25 08:08 Ipratropium 0.5 Mg/Albuterol Sulfate 2.5 Mg (Base) Ampul.Neb 3 Ml INHALATION Q6HRT PRN wheezing Artificial Tears 1 drop 09/09/25 08:06 09/09/25 09:00 Artificial Tears Ophth Soln 15 Ml Bottle EACH EYE 1 drop QID PRN Administration Dry Eye(s) Lidocaine HCl 30 ml/ Al Hydrox 0 ml 08/30/25 17:00 09/03/25 07:00 /Mg Hydrox/Simethicone 30 ml/ PO Not Given Diphenhydramine HCl 75 mg Q4HWA DARIEN On Hold: 09/03/25 07:00 Cyanocobalamin 500 mcg 09/10/25 09:00 09/11/25 10:27 Cyanocobalamin 500 Mcg Tablet PO Not Given DAILY DARIEN Dextrose 12.5 gm 09/03/25 10:06 Dextrose 50% 25 Gm/50 Ml Syringe IV PUSH PRN PRN Hypoglycemia Protocol Fenofibrate 145 mg 09/01/25 09:00 09/11/25 10:26 Fenofibrate 145 Mg Tablet PO Not Given QAM DARIEN Ferrous Sulfate 325 mg 09/10/25 09:00 09/11/25 10:27 Ferrous Sulfate 325 Mg Tablet PO 10/10/25 08:59 Not Given DAILY DARIEN Folic Acid 0.4 mg 09/10/25 09:00 09/11/25 10:27 Folic Acid 0.4 Mg Tablet PO 10/10/25 08:59 Not Given DAILY DARIEN Furosemide 40 mg 09/09/25 09:00 09/11/25 10:31 Furosemide Inj 40 Mg/4 Ml Vial IV PUSH 40 mg DAILY DARIEN Administration Glucagon 1 mg 09/03/25 10:06 Glucagon For Inj 1 Mg Vial IM PRN PRN Hypoglycemia Protocol Glucose 15 gm 09/03/25 10:06 Glucose Oral Gel 15 Gm Of Glucse In 37.5 Gm Tube PO PRN PRN Hypoglycemia Protocol Heparin Sodium (Beef Lung) 50 units 09/03/25 09:00 09/11/25 10:32 Heparin Flush 50 Units/5 Ml Syringe IV PUSH Not Given QAM DARIEN Heparin Sodium (Beef Lung) 50 units 09/03/25 07:03 Heparin Flush 50 Units/5 Ml Syringe IV PUSH PRN PRN after intermittent infusion Heparin Sodium (Beef Lung) 50 units 09/03/25 07:03 Heparin Flush 50 Units/5 Ml Syringe IV PUSH PRN PRN after blood draws Heparin Sodium (Porcine) 500 units 09/03/25 07:03 Heparin Sodium Lock Flush 500 Units/5 Ml Syringe IV PUSH PRN PRN see comments below Dextrose 1,000 mls @ 100 mls/hr 09/03/25 10:06 Dextrose 5% 1,000 Ml IVPB PRN PRN Hypoglycemia Protocol Dextrose/Sodium Chloride 1,000 mls @ 50 mls/hr 09/11/25 04:10 09/11/25 04:25 Dextrose 5% Sodium Chloride 0.9% IV CONT 50 mls/hr .Q20H DARIEN Administration Insulin Aspart 2 - 5 units 09/03/25 10:10 09/11/25 10:26 Insulin Aspart (*Bkc) 100 Units/Ml SUB-Q Not Given Q4HR [facility] Protocol Lidocaine HCl 1 applic 08/30/25 20:34 08/31/25 09:34 Lidocaine 4% Soln 50 Ml Btl TOPICAL 1 applic PRN PRN Administration Pain Lidocaine/Prilocaine 1 each 09/09/25 14:12 Lidocaine/Prilocaine Cream 2.5-2.5% Tube TOPICAL DAILY PRN Pain Loratadine 10 mg 08/31/25 21:00 09/11/25 10:17 Loratadine 10 Mg Tablet PO Not Given QAM [facility] Metoprolol Tartrate 25 mg 09/09/25 09:00 09/11/25 10:26 Metoprolol Tartrate 25 Mg Tablet PO Not Given Q12HR [facility] Metoprolol Tartrate 5 mg 09/10/25 18:54 09/10/25 21:58 Metoprolol Tartrate Inj 5 Mg/5 Ml Vial IV PUSH 5 mg Q8HR PRN Administration Heart Rate- High Miconazole Nitrate 1 applic 09/10/25 21:00 09/11/25 10:32 Miconazole Nitrate 2% Cream 30 Gm Tube TOPICAL 10/09/25 16:59 1 applic Q12HR [facility] Administration Miscellaneous Information 0 each 09/09/25 00:01 09/11/25 05:05 Nonformulary Drug (Mesalamine [Lialda] 1.2 Gram Tablet,Delayed Release (Dr/Ec)) Can Patien XX 10/09/25 00:00 Not Given CLARIFY [facility] Multivitamins Therapeutic 1 tablet 09/10/25 09:00 09/11/25 10:27 Multivitamins Therapeutic Tab (*Bkc) PO Not Given DAILY [facility] Mupirocin 1 applic 09/10/25 21:00 09/11/25 10:32 Mupirocin 2% Oint 22 Gm Tube TOPICAL 1 applic Q12HR [facility] Administration Non-Formulary Medication 2.4 gm 09/10/25 09:00 Mesalamine [Lialda] PO 10/10/25 08:59 DAILY DARIEN Ondansetron HCl 8 mg 09/09/25 14:12 Ondansetron Hcl Odt 4 Mg Tablet PO Q8-12H PRN nausea and vomiting Pantoprazole Sodium 40 mg 09/03/25 21:00 09/11/25 10:31 Pantoprazole Sodium Iv 40 Mg Vial IV PUSH 40 mg Q12HR DARIEN Administration Prednisone 5 mg 09/09/25 21:00 09/11/25 10:26 Prednisone 5 Mg Tablet PO Not Given Q12HR DARIEN Simvastatin 20 mg 09/09/25 21:00 09/10/25 20:26 Simvastatin 20 Mg Tablet PO Not Given HS DARIEN Sodium Chloride 10 ml 09/03/25 14:00 09/11/25 05:32 Central Line Flush IV PUSH 10 ml Q8HR DARIEN Administration Tamsulosin HCl 0.4 mg 09/01/25 09:00 09/11/25 10:26 Tamsulosin Hcl 0.4 Mg Capsule PO Not Given DAILY DARIEN Terbinafine HCl 250 mg 09/10/25 09:00 09/11/25 10:27 Terbinafine Hcl 250 Mg Tablet PO Not Given DAILY DARIEN Vitamin D 125 mcg 09/01/25 09:00 09/11/25 10:17 Cholecalciferol (Vitamin D3) 125 Mcg (5,000 Units) Tablet PO Not Given DAILY [facility] Radiology Results: ITS Impressions Head CT 09/03/25 06:23 IMPRESSION: 1. No acute intracranial findings. Head/Neck CTA 09/03/25 06:30 IMPRESSION: CT HEAD: 1. No acute intracranial findings. CTA NECK: 1. Motion artifact along carotid bulbs. Stenosis or even dissection not excluded. Recommend carotid ultrasound. CTA HEAD: 1. No large vessel arterial occlusive disease or other acute findings. 2. No aneurysms. Chest CT 09/03/25 07:26 IMPRESSION: 1. Significant decrease in lung volumes with prominent dependent atelectasis including partial collapse of the bilateral lower lobes. Superimposed pneumonia not excludable. 2. No significant change in small left and moderate-sized right pleural effusions. 3. Moderate amount of ascites in the upper abdomen. 4. Scattered sclerotic bone lesions consistent with known metastatic prostate cancer and with chronic pathologic fracture at T10. Carotid Doppler Study 09/03/25 17:25 IMPRESSION: 1. >=70% (but less than near occlusion) stenosis in the right internal carotid artery. 2. >=70% (but less than near occlusion) stenosis in the left internal carotid artery. 3. The degree of stenosis indicated by the increased velocities is greater than would be expected given the amount of calcified atherosclerotic plaque evident on the prior CT angiogram. This suggests that the lower density linear filling defects at the bilateral carotid bulbs seen on the prior CT angiogram are not artifactual and likely to represent small dissection flaps. Abdomen X-Ray 09/04/25 07:07 IMPRESSION: 1: NG tube tip in the stomach. 2: Bibasilar airspace disease may represent edema or pneumonia. Chest X-Ray 09/09/25 08:06 Impression: Basilar probable pneumonia. The findings appear slightly improved. Modified Barium Swallow 09/10/25 15:04 IMPRESSION: Pharyngeal dysphagia and laryngeal penetration without aspiration. Please correlate with speech pathologist findings and specific feeding recommendations. Labs Labs: Laboratory Results - last 24 hr 09/10/25 09/10/25 09/10/25 09:51 15:50 19:50 WBC 12.0 H RBC 2.97 L Hgb 9.3 L Hct 29.7 L MCV 100.0 MCH 31.3 MCHC 31.3 L RDW 19.9 H Plt Count 146 L MPV 11.7 H Immature Gran % (Auto) Neut % (Auto) Lymph % (Auto) Lea % (Auto) Eos % (Auto) Baso % (Auto) Lymph # (Auto) Lea # (Auto) Eos # (Auto) Baso # (Auto) Abs Immat Gran (auto) Absolute Neuts (auto) Absolute Nucleated RBC Nucleated RBC % Sodium 141 Potassium 3.7 Chloride 108 H Carbon Dioxide 29 Anion Gap 4 BUN 30 H Creatinine 0.68 L Estim Creat Clear Calc 78 Estimated GFR > 60 Glucose 74 POC Capillary Glucose 85 107 H Calcium 7.7 L 09/11/25 09/11/25 09/11/25 00:04 04:04 05:38 WBC 10.7 H RBC 3.09 L Hgb 9.4 L Hct 30.9 L MCV 100.0 MCH 30.4 MCHC 30.4 L RDW 19.3 H Plt Count 159 MPV 11.3 H Immature Gran % (Auto) 1.6 H Neut % (Auto) 81.6 H Lymph % (Auto) 7.4 L Lea % (Auto) 8.4 Eos % (Auto) 0.0 Baso % (Auto) 1.0 Lymph # (Auto) 0.79 L Lea # (Auto) 0.9 H Eos # (Auto) 0.0 Baso # (Auto) 0.1 Abs Immat Gran (auto) 0.17 H Absolute Neuts (auto) 8.7 H Absolute Nucleated RBC 0.000 Nucleated RBC % 0.0 Sodium 144 Potassium 3.3 L Chloride 108 H Carbon Dioxide 34 H Anion Gap 2 L BUN 33 H Creatinine 0.60 L Estim Creat Clear Calc 87 Estimated GFR > 60 Glucose 127 H POC Capillary Glucose 104 123 H Calcium 7.7 L 09/11/25 09/11/25 08:06 11:39 WBC RBC Hgb Hct MCV MCH MCHC RDW Plt Count MPV Immature Gran % (Auto) Neut % (Auto) Lymph % (Auto) Lea % (Auto) Eos % (Auto) Baso % (Auto) Lymph # (Auto) Lea # (Auto) Eos # (Auto) Baso # (Auto) Abs Immat Gran (auto) Absolute Neuts (auto) Absolute Nucleated RBC Nucleated RBC % Sodium Potassium Chloride Carbon Dioxide Anion Gap BUN Creatinine Estim Creat Clear Calc Estimated GFR Glucose POC Capillary Glucose 117 H 130 H Calcium
--- NOTE | 2025-09-11 13:30 | PCSTNOTE ---
09/11 13:30 Attempted therapy. Patient had just fallen asleep per family. Requested to let him rest. Reviewed dysphagia exercises with family and left written exercises at bedside.
--- NOTE | 2025-09-11 18:29 | WPDGICN ---
Assessment and Plan Assessment and plan (1) Oropharyngeal dysphagia: Code(s): R13.12 - Dysphagia, oropharyngeal phase Status: Acute Assessment and Plan: The patient is deemed a good candidate for PEG placement which will be scheduled for this coming Sunday. In the meantime he is receiving peripheral parental nutrition. GI Consult Note Consult date/time: 09/11/25 18:29 Reason for consult: Gastrostomy tube placement HPI: Gume Roberson Jr. is a 75 year old male with a history of prostate cancer with metastasis, who developed severe neutropenic sepsis after chemotherapy on 08/26/2025. He had a very tortuous hospital course, requiring intubation for respiratory failure associated with sepsis. He is currently stable, however a modified barium swallow showed risk of aspiration, and or services required for a PEG tube placement. Review of Systems Review of Systems: All systems reviewed & are unremarkable except as noted in HPI and below PMFSH Past Medical History Medical History (Updated 09/11/25 @ 18:31 by Johnny Guadarrama MD) Aneurysm of popliteal artery Allergic rhinitis Deviated nasal septum Anterior epistaxis Squamous cell carcinoma lung Anxiety Fistula Bundle branch block, right COPD (chronic obstructive pulmonary disease) Coronary artery disease Proctitis Ulcerative colitis Surgical History Surgical History Port-A-Cath in place 01/14/25 Placement right internal jugular vein Port-A-Cath using ultrasound and under fluoroscopy per Dr. Arenas History of lobectomy of lung S/P pneumonectomy H/O heart bypass surgery History of colon surgery Family History Family History Father Asthma Mother Acute myocardial infarction Son Carcinoma of colon Other Family history of cardiovascular disease Social History Social History Social History: Caffeine-tea Smoking packs per day: 2 Smoking cigarettes per day: 40.0 Years smoked: 35 Smoking pack-years: 70.00 Smoking status: Former smoker Second hand tobacco smoke exposure: No Smoking end date: 08/30/05 Alcohol intake: never Substance use: never Substance use type: does not use Do You Feel Safe in your Home?: Yes Lack of Transportation: No Lack of Food: Never True Current Housing: I Have Housing Concerned About Future Housing: No Difficulty Paying Gas/Electric Bills: No Difficulty Paying for Meds: No Currently Unemployed: No Education: Bachelor's Degree Difficulty w/ Childcare or Family Care: No Living arrangements: with family Additional living arrangements comments: Spiritual care concerns: No Meds Home Medications and Allergies Home Medications ?Medication ?Instructions ?Recorded ?Confirmed ?Type cholecalciferol (vitamin D3) 125 5,000 unit PO DAILY 10/17/19 08/30/25 History mcg (5,000 unit) capsule mesalamine 1.2 gram tablet,delayed 2.4 gm PO DAILY 10/17/19 08/30/25 History release (Lialda) metoprolol succinate 25 mg 25 mg PO HS 10/17/19 08/30/25 History tablet,extended release 24 hr (Toprol XL) multivitamin 1 tablet PO DAILY 10/17/19 08/30/25 History fenofibrate 160 mg tablet See Rx Instructions .Route 12/01/24 08/30/25 Rx .COMPLEX #90 tabs alprazolam 0.25 mg tablet (Xanax) 0.25 mg PO QHS PRN anxiety 04/26/25 08/30/25 History triamcinolone acetonide 0.1 % 1 applic topical PRN 04/26/25 08/30/25 History topical cream abiraterone 250 mg tablet 1,000 mg PO DAILY 06/22/25 08/30/25 History lidocaine-prilocaine 2.5 %-2.5 % 1 applic topical DAILY PRN pain 06/22/25 08/30/25 History topical cream ondansetron 8 mg disintegrating 8 mg PO Q8-12H PRN nausea and 06/22/25 08/30/25 History tablet vomiting prednisone 5 mg tablet 5 mg PO Q12H 06/22/25 08/30/25 History mupirocin 2 % topical ointment 1 applic topical BID 07/22/25 08/30/25 History ferrous sulfate 325 mg (65 mg 325 mg PO DAILY 08/10/25 08/30/25 History iron) tablet (Feosol) vitamin B12 500 mcg-folic acid 400 1 tablet PO DAILY 08/10/25 08/30/25 History mcg tablet simvastatin 20 mg tablet (Zocor) 20 mg PO HS #90 tabs 08/19/25 08/30/25 Rx terbinafine HCl 1 % topical cream 1 applic topical BID #30 grams 08/27/25 08/30/25 Rx (Lamisil AT) pregabalin 100 mg capsule (Lyrica) 100 mg PO Q8H 90 days #270 caps 08/28/25 08/30/25 Rx terbinafine HCl 250 mg tablet 250 mg PO DAILY #30 tabs 08/28/25 08/30/25 Rx tamsulosin 0.4 mg capsule 0.4 mg PO DAILY 08/30/25 08/31/25 History Allergies Allergy/AdvReac Type Severity Reaction Status Date / Time escitalopram Allergy Unknown Asthma Verified 08/30/25 09:31 sildenafil Allergy Unknown Hypotension Verified 08/30/25 09:31 Penicillins AdvReac Mild Diarrhea Verified 08/30/25 09:31 amoxicillin AdvReac Unknown Diarrhea Verified 08/30/25 09:31 ciprofloxacin AdvReac Unknown Diarrhea Verified 08/30/25 09:31 gemfibrozil AdvReac Unknown myalgias Verified 08/30/25 09:31 lactase AdvReac Unknown Nausea Verified 08/30/25 09:31 Vital Signs Vital Signs - 24 hr 09/10/25 20:00 09/10/25 20:25 09/10/25 21:25 Temperature Pulse Rate 100 110 H Respiratory Rate Blood Pressure Pulse Oximetry Oxygen Delivery Room Air 09/10/25 21:58 09/11/25 00:00 09/11/25 00:00 Temperature 97.7 F Pulse Rate 107 H 104 H 103 H Respiratory Rate 18 Blood Pressure 110/55 L Pulse Oximetry 100 Oxygen Delivery 09/11/25 04:00 09/11/25 06:03 09/11/25 08:00 Temperature 97.8 F Pulse Rate 98 97 110 H Respiratory Rate 18 Blood Pressure 115/55 L Pulse Oximetry 90 Oxygen Delivery 09/11/25 08:10 09/11/25 08:10 09/11/25 12:00 Temperature Pulse Rate 97 102 H Respiratory Rate Blood Pressure Pulse Oximetry Oxygen Delivery Room Air 09/11/25 12:54 09/11/25 16:00 Temperature 96.8 F L Pulse Rate 94 109 H Respiratory Rate 16 Blood Pressure 100/49 L Pulse Oximetry 98 Oxygen Delivery Exam Const: General: cooperative and healthy appearing Resp: Effort & Inspection: normal respiratory effort and able to speak in complete sentences Auscultation: clear to auscultation bilaterally Cardio: Rate: regular rate Rhythm: regular rhythm GI: Inspection: normal to inspection GI Palp: No No hepatosplenomegaly present Auscultation: normal bowel sounds Rectal Exam: deferred Skin: General skin exam: normal color Psych: Appearance: grossly normal Mental Status: mental status grossly normal Results Labs 09/11/25 05:38 09/11/25 05:38 Labs: Short CBC 09/11/25 Range/Units 05:38 WBC 10.7 H (4.5-10.0) K/mm3 Hgb 9.4 L (14.0-18.0) g/dL Hct 30.9 L (42.0-52.0) % Plt Count 159 (150-375) k/mm3 [facility] 09/11/25 05:38 Sodium 144 Potassium 3.3 L Chloride 108 H Carbon Dioxide 34 H BUN 33 H Creatinine 0.60 L Glucose 127 H Calcium 7.7 L
[2025-09-11 18:38] LABS: Hematocrit 30.1 % (42.0-52.0); Hemoglobin 9.4 g/dL (14.0-18.0); Immature Granulocyte Percent A 1.1 % (0-0.5); Lymphocytes Absolute Auto 0.83 K/mm3 (0.9-3.2); Mean Corpuscular HGB Conc 31.2 g/dl (32-36); Mean Corpuscular Hemoglobin 30.5 pg (26-34); Mean Corpuscular Volume 97.7 fl (80-100); Nucleated Red Blood Cells Absolute Auto 0.000 K/mm3 (0.0-0.012); Nucleated Red Blood Cells Perc 0.0 % (0.0-0.2); Platelet Count Result 159 k/mm3 (150-375); Red Blood Count 3.08 M/mm3 (4.6-6.20); White Blood Count 8.3 K/mm3 (4.5-10.0)
[2025-09-11 18:52] LABS: Partial Thromboplastin Time 47.5 Seconds (22.3-36.8)
[2025-09-11 18:57] LABS: Alanine Aminotransferase 25 U/L (6-50); Albumin Level 2.6 g/dL (3.5-5.1); Alkaline Phosphatase 83 U/L (38-126); Anion Gap -2 mmol/L (4-12); Aspartate Amino Transferase 61 U/L (17-59); Bilirubin,Total 1.0 mg/dL (0.2-1.3); Blood Urea Nitrogen 29 mg/dL (9-20); Calcium 7.7 mg/dL (8.4-10.2); Carbon Dioxide 38 mmol/L (22-30); Chloride 108 mmol/L (98-107); Estimated CRCL calculation 93 ml/min; Estimated Glomerular Filt Rate > 60; Glucose 127 mg/dL (65-110); Magnesium 1.9 mg/dL (1.6-2.3); Potassium 2.9 mmol/L (3.4-5.0); Sodium 144 mmol/L (137-145); Total Protein 4.6 g/dL (6.3-8.2)
[2025-09-11 18:58] LABS: Transferrin 101 mg/dL (206-381)
[2025-09-11] MEDS: METOPROLOL TARTRATE INJ 5 MG/5 ML VIAL IV PUSH (21:28)
[2025-09-12] VITALS (13 sets, daily range): BP systolic 114–150; BP diastolic 56–64; PULSE 95–123; RESP 10–18; TEMP 36.2–36.7; O2SAT 88–100
[2025-09-12] MEDS: DEXTROSE 5%/0.9% SOD CHL 1,000 ML 50 ML IV CONT (00:25)
[2025-09-12] MEDS: MICONAZOLE NITRATE 2% CREAM 30 GM TUBE 1 APPLIC TOPICAL ×3 (01:39→21:41)
[2025-09-12] MEDS: CENTRAL LINE FLUSH 10 ML IV PUSH ×3 (05:57→23:24)
[2025-09-12 06:03] LABS: Hematocrit 31.8 % (42.0-52.0); Hemoglobin 9.6 g/dL (14.0-18.0); Mean Corpuscular HGB Conc 30.2 g/dl (32-36); Mean Corpuscular Hemoglobin 29.9 pg (26-34); Mean Corpuscular Volume 99.1 fl (80-100); Platelet Count Result 160 k/mm3 (150-375); Red Blood Count 3.21 M/mm3 (4.6-6.20); White Blood Count 7.9 K/mm3 (4.5-10.0)
[2025-09-12 06:12] LABS: Anion Gap 1 mmol/L (4-12); Blood Urea Nitrogen 27 mg/dL (9-20); Calcium 7.4 mg/dL (8.4-10.2); Carbon Dioxide 35 mmol/L (22-30); Chloride 110 mmol/L (98-107); Estimated CRCL calculation 103 ml/min; Estimated Glomerular Filt Rate > 60; Glucose 129 mg/dL (65-110); Potassium 2.9 mmol/L (3.4-5.0); Sodium 146 mmol/L (137-145)
[2025-09-12] MEDS: FUROSEMIDE INJ 40 MG/4 ML VIAL IV PUSH (08:52)
--- NOTE | 2025-09-12 09:20 | PC.NURSE ---
RN called Hospitalist Albert about patient's pending orders for PPN/TPN. Albert stated he thought the orders were placed yesterday, but he would call pharmacy.
--- NOTE | 2025-09-12 09:24 | P.PNIM_ITS ---
Progress Note: A&P Assessment and Plan (1) Septic shock: Code(s): A41.9 - Sepsis, unspecified organism; R65.21 - Severe sepsis with septic shock Status: Acute Assessment and Plan: 09/03/2025: Patient was transferred from medical floor to ICU where he was intubated, found to be hypotensive, received albumin -and IV fluid bolus, started on Levophed -patient does have a port, will use that for the pressors -wean Levophed to maintain mean arterial MAP > 65 mmHg, SBP > 100 mmHg -patient was on azithromycin, cefepime and vancomycin per Infectious Disease -09/03: Switch cefepime to meropenem, also discussed with Infectious Disease and micafungin was added -currently on meropenem, vancomycin micafungin, (completed a course of azithromycin) -micafungin for balanitis per Infectious Disease -08/30: Blood cultures negative x2 -09/03: Blood cultures obtained and pending 09/12/2025 Resolved (2) Acute respiratory failure: Code(s): J96.00 - Acute respiratory failure, unspecified whether with hypoxia or hypercapnia Status: Acute Assessment and Plan: Patient is transferred from medical floor after being found hypoxic, hypotensive and less responsive/altered mental status -increasing O2 requirements on Airvo -09/03: Patient was intubated by ER physician in the ICU -currently on CMV mode of ventilation, peep of 5, 35% FiO2. -ABGs, chest x-ray and CT chest reviewed. -continue bronchodilator -09/03: Status post right thoracentesis this by ER physician, drained 600 mL yellow sticky fluid 09/03/2025: CT chest with contrast -IMPRESSION: 1. Significant decrease in lung volumes with prominent dependent atelectasis including partial collapse of the bilateral lower lobes. Superimposed pneumonia not excludable. 2. No significant change in small left and moderate-sized right pleural effusions. 3. Moderate amount of ascites in the upper abdomen. 4. Scattered sclerotic bone lesions consistent with known metastatic prostate cancer and with chronic pathologic fracture at T10. 09/02: IMPRESSION: Moderate loculated right pleural effusion and small left pleural effusion. Patchy infiltrates are present bilaterally. There is mediastinal lymphadenopathy. Sclerotic changes within the T9 vertebral body suggestive of metastasis. 09/11/2025 Resolved 09/12/2025 Stable, continue current treatment (3) Pleural effusion: Code(s): J90 - Pleural effusion, not elsewhere classified Status: Acute Assessment and Plan: 09/03: Thoracentesis perform a ER physician early hours with a removal of 600 mL in yellow sticky fluid -pleural fluid LDH, protein are pending, -fluid gram stain did not show any organism -according the hospitalist, pleural fluid looked like an exudate. Will confirm with pleural fluid studies -continue antibiotics as above 09/11/2025 Continue to monitor, stable 09/12/2025 Stable, continue current treatment (4) Pneumonia: Code(s): J18.9 - Pneumonia, unspecified organism Status: Acute Assessment and Plan: Consolidation noted on CT scan of the chest -continue antibiotics as above -appreciate pulmonology evaluation and recommendations, thoracentesis scheduled for today, 09/0409/11/2025 Finished course of antibiotic. Will monitor closely. 09/12/2025 Stable, continue current treatment (5) Encephalopathy: Code(s): G93.40 - Encephalopathy, unspecified Status: Acute Assessment and Plan: Encephalopathy could be multifactorial, septic shock, hypotension, hypoxia -currently intubated, not on any sedation. -will maintain Euthermia, adequate blood pressures, adequate oxygenation -09/03: patient did wake up and follows simple commands IMPRESSION: CT HEAD: 1. No acute intracranial findings. CTA NECK: 1. Motion artifact along carotid bulbs. Stenosis or even dissection not excluded. Recommend carotid ultrasound. CTA HEAD: 1. No large vessel arterial occlusive disease or other acute findings. 2. No aneurysms. (6) Coagulopathy: Code(s): D68.9 - Coagulation defect, unspecified Status: Acute Assessment and Plan: PTT elevated, continue to monitor, patient not on any anticoagulation at this t toya (7) Anemia: Code(s): D64.9 - Anemia, unspecified Status: Acute Assessment and Plan: Stable. Monitor closely (8) Protein calorie malnutrition: Code(s): E46 - Unspecified protein-calorie malnutrition Status: Acute Assessment and Plan: Scheduled for G-tube placement. Currently on TPN (9) Metastatic malignant neoplasm to prostate: Code(s): C79.82 - Secondary malignant neoplasm of genital organs Status: Acute Assessment and Plan: Patient has metastatic prostate cancer, being treated by Dr. Nico with palliative chemotherapy (10) Candidal balano-posthitis: Code(s): B37.49 - Other urogenital candidiasis Status: Acute Assessment and Plan: Continue current treatment. (11) COPD (chronic obstructive pulmonary disease): Code(s): J44.9 - Chronic obstructive pulmonary disease, unspecified Status: Acute Assessment and Plan: Continue DuoNebs, on mechanical ventilation Plan patient with metastatic prostate cancer presented with weakness and fever, with neutropenia 2/2 chemotherapy, initially patient was admitted on medical floor, his symptoms worsen patient was transferred to ICU and currently intubated, patient is found to have pneumonia, patient is being treated meropenem, and vancomycin, patient is also has candidal balano-posthitis and being treated with fluconazole, patient neutropenia has resolved, 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 on 09/08 patient clinical symptoms were improving, as well CXR and his ABG, patient was given SBT and was successful and was extubated, patient is now in IMU, stats doing better now on RA, patient remains clinically stable. patient was seen by ID, patient all culture no growth so far, and ID recommended to dc all antibiotics and monitor patient off the abx, today patient had MDS and failed and uable to take any PO, Family agreed for G-tube placement. Will consult GI. Subjective Date/time seen: 09/12/25 09:24 Interval history: Patient was seen during the morning rounds today. No new overnight complaints. No shortness of breath or chest pain. Review of Systems Review of Systems: Other systems are reviewed and negative except as noted in history above. ROS unobtainable: Yes unobtainable due to endotracheal tube, unobtainable due to medical condition and unobtainable due to mental status Exam Narrative: Patient is comfortable, NAD HEENT: eyes are clear and none icteric LUNGS:CTA HEART: RR S1S2 ABD: BS+, Soft and nontender Lower extremities: no edema SKIN: nonjaundiced Neuro: Alert and awake. Objective Data Vital Signs Vital Signs: Vital Signs - 24 hr 09/11/25 12:00 09/11/25 12:54 09/11/25 16:00 Temperature 36.0 C L Pulse Rate 102 H 94 109 H Respiratory Rate 16 Blood Pressure 100/49 L Pulse Oximetry 98 Oxygen Delivery 09/11/25 19:30 09/11/25 20:00 09/11/25 20:00 Temperature 36.4 C Pulse Rate 104 H 104 H Respiratory Rate 18 Blood Pressure 123/59 L Pulse Oximetry 98 Oxygen Delivery Room Air 09/11/25 21:21 09/11/25 21:28 09/12/25 00:00 Temperature Pulse Rate 109 H 112 H 104 H Respiratory Rate Blood Pressure Pulse Oximetry Oxygen Delivery 09/12/25 00:11 09/12/25 04:00 09/12/25 04:47 Temperature 36.4 C 36.3 C L Pulse Rate 95 102 H 103 H Respiratory Rate 18 18 Blood Pressure 129/56 L 150/63 H Pulse Oximetry 100 99 Oxygen Delivery 09/12/25 08:00 09/12/25 08:00 09/12/25 08:55 Temperature 36.2 C L Pulse Rate 107 H 101 H Respiratory Rate 18 Blood Pressure 131/64 Pulse Oximetry 96 Oxygen Delivery Room Air Intake/Output Intake/Output: Intake & Output 09/09/25 09/10/25 09/11/25 09/12/25 23:59 23:59 23:59 23:59 Intake Total 1024 150 0 1000 Output Total 4642 336 5299 200 Balance -701 25 -1250 800 Meds/Results Medications: Active Medications Generic Name Dose Route Start Last Admin Trade Name Freq PRN Reason Stop Dose Admin Acetaminophen 650 mg 08/30/25 10:58 09/09/25 15:33 Acetaminophen 325 Mg Tablet PO 650 mg Q4H PRN Administration Mild Pain (1-3) or Fever Albuterol/Ipratropium 3 ml 09/09/25 08:08 Ipratropium 0.5 Mg/Albuterol Sulfate 2.5 Mg (Base) Ampul.Neb 3 Ml INHALATION Q6HRT PRN wheezing Artificial Tears 1 drop 09/09/25 08:06 09/09/25 09:00 Artificial Tears Ophth Soln 15 Ml Bottle EACH EYE 1 drop QID PRN Administration Dry Eye(s) Lidocaine HCl 30 ml/ Al Hydrox 0 ml 08/30/25 17:00 09/03/25 07:00 /Mg Hydrox/Simethicone 30 ml/ PO Not Given Diphenhydramine HCl 75 mg Q4HWA DARIEN On Hold: 09/03/25 07:00 Cyanocobalamin 500 mcg 09/10/25 09:00 09/12/25 07:31 Cyanocobalamin 500 Mcg Tablet PO Not Given DAILY DARIEN Dextrose 12.5 gm 09/03/25 10:06 Dextrose 50% 25 Gm/50 Ml Syringe IV PUSH PRN PRN Hypoglycemia Protocol Fenofibrate 145 mg 09/01/25 09:00 09/12/25 07:29 Fenofibrate 145 Mg Tablet PO Not Given QAM DARIEN Ferrous Sulfate 325 mg 09/10/25 09:00 09/12/25 07:31 Ferrous Sulfate 325 Mg Tablet PO 10/10/25 08:59 Not Given DAILY DARIEN Folic Acid 0.4 mg 09/10/25 09:00 09/12/25 07:31 Folic Acid 0.4 Mg Tablet PO 10/10/25 08:59 Not Given DAILY DARIEN Furosemide 40 mg 09/09/25 09:00 09/12/25 08:52 Furosemide Inj 40 Mg/4 Ml Vial IV PUSH 40 mg DAILY DARIEN Administration Glucagon 1 mg 09/03/25 10:06 Glucagon For Inj 1 Mg Vial IM PRN PRN Hypoglycemia Protocol Glucose 15 gm 09/03/25 10:06 Glucose Oral Gel 15 Gm Of Glucse In 37.5 Gm Tube PO PRN PRN Hypoglycemia Protocol Heparin Sodium (Beef Lung) 50 units 09/03/25 09:00 09/12/25 07:30 Heparin Flush 50 Units/5 Ml Syringe IV PUSH Not Given QAM DARIEN Heparin Sodium (Beef Lung) 50 units 09/03/25 07:03 Heparin Flush 50 Units/5 Ml Syringe IV PUSH PRN PRN after intermittent infusion Heparin Sodium (Beef Lung) 50 units 09/03/25 07:03 09/12/25 05:48 Heparin Flush 50 Units/5 Ml Syringe IV PUSH 50 units PRN PRN Administration after blood draws Heparin Sodium (Porcine) 500 units 09/03/25 07:03 Heparin Sodium Lock Flush 500 Units/5 Ml Syringe IV PUSH PRN PRN see comments below Dextrose 1,000 mls @ 100 mls/hr 09/03/25 10:06 Dextrose 5% 1,000 Ml IVPB PRN PRN Hypoglycemia Protocol Dextrose/Sodium Chloride 1,000 mls @ 50 mls/hr 09/11/25 04:10 09/12/25 00:25 Dextrose 5% Sodium Chloride 0.9% IV CONT 50 mls/hr .Q20H DARIEN Administration Dextrose 1,000 mls @ 50 mls/hr 09/11/25 16:37 Dextrose 10% IV CONT .Q20H PRN if PN is interrupted Dextrose 1,000 mls @ 50 mls/hr 09/12/25 09:19 Dextrose 10% IV CONT .Q20H PRN if PN is interrupted Potassium Chloride 40 meq/ 520 mls @ 130 mls/hr 09/12/25 09:22 Sodium Chloride IVPB 09/12/25 13:21 ONCE ONE Insulin Aspart 2 - 5 units 09/12/25 06:00 09/12/25 05:45 Insulin Aspart (*Bkc) 100 Units/Ml SUB-Q Not Given Q6HR [facility] Protocol Lidocaine HCl 1 applic 08/30/25 20:34 08/31/25 09:34 Lidocaine 4% Soln 50 Ml Btl TOPICAL 1 applic PRN PRN Administration Pain Lidocaine/Prilocaine 1 each 09/09/25 14:12 Lidocaine/Prilocaine Cream 2.5-2.5% Tube TOPICAL DAILY PRN Pain Loratadine 10 mg 08/31/25 21:00 09/12/25 07:29 Loratadine 10 Mg Tablet PO Not Given QAM [facility] Metoprolol Tartrate 25 mg 09/09/25 09:00 09/12/25 07:31 Metoprolol Tartrate 25 Mg Tablet PO Not Given Q12HR [facility] Metoprolol Tartrate 5 mg 09/10/25 18:54 09/11/25 21:28 Metoprolol Tartrate Inj 5 Mg/5 Ml Vial IV PUSH 5 mg Q8HR PRN Administration Heart Rate- High Miconazole Nitrate 1 applic 09/10/25 21:00 09/12/25 01:39 Miconazole Nitrate 2% Cream 30 Gm Tube TOPICAL 10/09/25 16:59 1 applic Q12HR DARIEN Administration Miscellaneous Information 0 each 09/09/25 00:01 09/11/25 05:05 Nonformulary Drug (Mesalamine [Lialda] 1.2 Gram Tablet,Delayed Release (Dr/Ec)) Can Patien XX 10/09/25 00:00 Not Given CLARIFY [facility] Multivitamins Therapeutic 1 tablet 09/10/25 09:00 09/12/25 07:31 Multivitamins Therapeutic Tab (*Bkc) PO Not Given DAILY [facility] Mupirocin 1 applic 09/10/25 21:00 09/11/25 23:17 Mupirocin 2% Oint 22 Gm Tube TOPICAL Not Given Q12HR [facility] Non-Formulary Medication 2.4 gm 09/10/25 09:00 Mesalamine [Lialda] PO 10/10/25 08:59 DAILY [facility] Ondansetron HCl 8 mg 09/09/25 14:12 Ondansetron Hcl Odt 4 Mg Tablet PO Q8-12H PRN nausea and vomiting Prednisone 5 mg 09/09/25 21:00 09/12/25 07:31 Prednisone 5 Mg Tablet PO Not Given Q12HR [facility] Simvastatin 20 mg 09/09/25 21:00 09/11/25 21:25 Simvastatin 20 Mg Tablet PO Not Given HS [facility] Sodium Chloride 10 ml 09/03/25 14:00 09/12/25 08:55 Central Line Flush IV PUSH 10 ml Q8HR [facility] Administration Tamsulosin HCl 0.4 mg 09/01/25 09:00 09/12/25 07:29 Tamsulosin Hcl 0.4 Mg Capsule PO Not Given DAILY [facility] Terbinafine HCl 250 mg 09/10/25 09:00 09/12/25 07:31 Terbinafine Hcl 250 Mg Tablet PO Not Given DAILY [facility] Vitamin D 125 mcg 09/01/25 09:00 09/12/25 07:29 Cholecalciferol (Vitamin D3) 125 Mcg (5,000 Units) Tablet PO Not Given DAILY [facility] Radiology Results: ITS Impressions Head CT 09/03/25 06:23 IMPRESSION: 1. No acute intracranial findings. Head/Neck CTA 09/03/25 06:30 IMPRESSION: CT HEAD: 1. No acute intracranial findings. CTA NECK: 1. Motion artifact along carotid bulbs. Stenosis or even dissection not excluded. Recommend carotid ultrasound. CTA HEAD: 1. No large vessel arterial occlusive disease or other acute findings. 2. No aneurysms. Chest CT 09/03/25 07:26 IMPRESSION: 1. Significant decrease in lung volumes with prominent dependent atelectasis including partial collapse of the bilateral lower lobes. Superimposed pneumonia not excludable. 2. No significant change in small left and moderate-sized right pleural effusions. 3. Moderate amount of ascites in the upper abdomen. 4. Scattered sclerotic bone lesions consistent with known metastatic prostate cancer and with chronic pathologic fracture at T10. Carotid Doppler Study 09/03/25 17:25 IMPRESSION: 1. >=70% (but less than near occlusion) stenosis in the right internal carotid artery. 2. >=70% (but less than near occlusion) stenosis in the left internal carotid artery. 3. The degree of stenosis indicated by the increased velocities is greater than would be expected given the amount of calcified atherosclerotic plaque evident on the prior CT angiogram. This suggests that the lower density linear filling defects at the bilateral carotid bulbs seen on the prior CT angiogram are not artifactual and likely to represent small dissection flaps. Abdomen X-Ray 09/04/25 07:07 IMPRESSION: 1: NG tube tip in the stomach. 2: Bibasilar airspace disease may represent edema or pneumonia. Chest X-Ray 09/09/25 08:06 Impression: Basilar probable pneumonia. The findings appear slightly improved. Modified Barium Swallow 09/10/25 15:04 IMPRESSION: Pharyngeal dysphagia and laryngeal penetration without aspiration. Please correlate with speech pathologist findings and specific feeding recommendations. Labs Labs: Laboratory Results - last 24 hr 09/11/25 09/11/25 09/11/25 11:39 16:35 18:29 WBC 8.3 RBC 3.08 L Hgb 9.4 L Hct 30.1 L MCV 97.7 MCH 30.5 MCHC 31.2 L RDW 19.3 H Plt Count 159 MPV 10.7 H Immature Gran % (Auto) 1.1 H Neut % (Auto) 77.9 H Lymph % (Auto) 10.0 L Sterling % (Auto) 10.0 H Eos % (Auto) 0.0 Baso % (Auto) 1.0 Lymph # (Auto) 0.83 L Sterling # (Auto) 0.8 H Eos # (Auto) 0.0 Baso # (Auto) 0.1 Abs Immat Gran (auto) 0.09 H Absolute Neuts (auto) 6.4 Absolute Nucleated RBC 0.000 Nucleated RBC % 0.0 APTT 47.5 H Sodium 144 Potassium 2.9 L Chloride 108 H Carbon Dioxide 38 H Anion Gap -2 L BUN 29 H Creatinine 0.56 L Estim Creat Clear Calc 93 Estimated GFR > 60 Glucose 127 H POC Capillary Glucose 130 H 113 H Calcium 7.7 L Phosphorus Magnesium 1.9 Transferrin 101 L Total Bilirubin 1.0 AST 61 H ALT 25 Alkaline Phosphatase 83 Total Protein 4.6 L Albumin 2.6 L 09/11/25 09/12/25 09/12/25 19:34 00:10 04:56 WBC RBC Hgb Hct MCV MCH MCHC RDW Plt Count MPV Immature Gran % (Auto) Neut % (Auto) Lymph % (Auto) Sterling % (Auto) Eos % (Auto) Baso % (Auto) Lymph # (Auto) Sterling # (Auto) Eos # (Auto) Baso # (Auto) Abs Immat Gran (auto) Absolute Neuts (auto) Absolute Nucleated RBC Nucleated RBC % APTT Sodium Potassium Chloride Carbon Dioxide Anion Gap BUN Creatinine Estim Creat Clear Calc Estimated GFR Glucose POC Capillary Glucose 111 H 116 H 120 H Calcium Phosphorus Magnesium Transferrin Total Bilirubin AST ALT Alkaline Phosphatase Total Protein Albumin 09/12/25 09/12/25 05:55 07:19 WBC 7.9 RBC 3.21 L Hgb 9.6 L Hct 31.8 L MCV 99.1 MCH 29.9 MCHC 30.2 L RDW 19.0 H Plt Count 160 MPV 10.7 H Immature Gran % (Auto) Neut % (Auto) Lymph % (Auto) Sterling % (Auto) Eos % (Auto) Baso % (Auto) Lymph # (Auto) Sterling # (Auto) Eos # (Auto) Baso # (Auto) Abs Immat Gran (auto) Absolute Neuts (auto) Absolute Nucleated RBC Nucleated RBC % APTT Sodium 146 H Potassium 2.9 L Chloride 110 H Carbon Dioxide 35 H Anion Gap 1 L BUN 27 H Creatinine 0.50 L Estim Creat Clear Calc 103 Estimated GFR > 60 Glucose 129 H POC Capillary Glucose 118 H Calcium 7.4 L Phosphorus 2.5 Magnesium Transferrin Total Bilirubin AST ALT Alkaline Phosphatase Total Protein Albumin Quality VTE Prophylaxis VTE prophylaxis: mechanical ordered
[2025-09-12] MEDS: POTASSIUM CHLORIDE INJ 40 MEQ in SODIUM CHLORIDE 0.9% IV 500 ML 130 MEQ IVPB (10:09)
[2025-09-12 10:25] LABS: Hematocrit 33.0 % (42.0-52.0); Hemoglobin 10.3 g/dL (14.0-18.0); Immature Granulocyte Percent A 0.8 % (0-0.5); Lymphocytes Absolute Auto 0.70 K/mm3 (0.9-3.2); Mean Corpuscular HGB Conc 31.2 g/dl (32-36); Mean Corpuscular Hemoglobin 30.7 pg (26-34); Mean Corpuscular Volume 98.2 fl (80-100); Nucleated Red Blood Cells Absolute Auto 0.000 K/mm3 (0.0-0.012); Nucleated Red Blood Cells Perc 0.0 % (0.0-0.2); Platelet Count Result 169 k/mm3 (150-375); Red Blood Count 3.36 M/mm3 (4.6-6.20); White Blood Count 7.2 K/mm3 (4.5-10.0)
[2025-09-12 10:38] LABS: Alanine Aminotransferase 26 U/L (6-50); Albumin Level 2.7 g/dL (3.5-5.1); Alkaline Phosphatase 92 U/L (38-126); Anion Gap 1 mmol/L (4-12); Aspartate Amino Transferase 67 U/L (17-59); Bilirubin,Total 1.1 mg/dL (0.2-1.3); Blood Urea Nitrogen 25 mg/dL (9-20); Calcium 7.7 mg/dL (8.4-10.2); Carbon Dioxide 37 mmol/L (22-30); Chloride 107 mmol/L (98-107); Estimated CRCL calculation 99 ml/min; Estimated Glomerular Filt Rate > 60; Glucose 132 mg/dL (65-110); Magnesium 2.0 mg/dL (1.6-2.3); Potassium 2.9 mmol/L (3.4-5.0); Sodium 145 mmol/L (137-145); Total Protein 4.9 g/dL (6.3-8.2); Triglycerides 175 mg/dL (<150)
[2025-09-12 10:52] LABS: Transferrin 115 mg/dL (206-381)
[2025-09-12 11:05] LABS: Partial Thromboplastin Time 63.9 Seconds (22.3-36.8)
[2025-09-12] MEDS: AMINO ACIDS 4.25%/D5W/LYTES/CA 1,000 ML 80 ML IV CONT ×2 (11:23→23:36)
[2025-09-12] MEDS: FAT EMULSIONS IV 20% 250 ML 20.83 ML IVPB (11:25)
--- NOTE | 2025-09-12 13:40 | P.PNGI_ITS ---
Progress Note: A&P Assessment and Plan (1) Oropharyngeal dysphagia: Code(s): R13.12 - Dysphagia, oropharyngeal phase Status: Acute Assessment and Plan: Patient with oropharyngeal dysphagia of unclear etiology. Scheduled for PEG placement on Sunday. Receiving peripheral hyperalimentation over the weekend. Subjective Date/time seen: 09/12/25 13:40 Interval history: No change in his current status. Receiving peripheral hyperalimentation. Objective Data Vital Signs Vital Signs: Vital Signs - 24 hr 09/11/25 16:00 09/11/25 19:30 09/11/25 20:00 Temperature 97.6 F Pulse Rate 109 H 104 H Respiratory Rate 18 Blood Pressure 123/59 L Pulse Oximetry 98 Oxygen Delivery Room Air 09/11/25 20:00 09/11/25 21:21 09/11/25 21:28 Temperature Pulse Rate 104 H 109 H 112 H Respiratory Rate Blood Pressure Pulse Oximetry Oxygen Delivery 09/12/25 00:00 09/12/25 00:11 09/12/25 04:00 Temperature 97.6 F Pulse Rate 104 H 95 102 H Respiratory Rate 18 Blood Pressure 129/56 L Pulse Oximetry 100 Oxygen Delivery 09/12/25 04:47 09/12/25 08:00 09/12/25 08:00 Temperature 97.3 F L 97.1 F L Pulse Rate 103 H 107 H 101 H Respiratory Rate 18 18 Blood Pressure 150/63 H 131/64 Pulse Oximetry 99 96 Oxygen Delivery 09/12/25 08:55 09/12/25 12:00 Temperature Pulse Rate 100 Respiratory Rate Blood Pressure Pulse Oximetry Oxygen Delivery Room Air Intake/Output Intake/Output: Intake & Output 09/09/25 09/10/25 09/11/25 09/12/25 23:59 23:59 23:59 23:59 Intake Total 1024 150 0 1000 Output Total 3830 079 6310 1075 [facility]701 25 -1250 -75 Meds/Results Medications: Active Medications Generic Name Dose Route Start Last Admin Trade Name Freq PRN Reason Stop Dose Admin Acetaminophen 650 mg 08/30/25 10:58 09/09/25 15:33 Acetaminophen 325 Mg Tablet PO 650 mg Q4H PRN Administration Mild Pain (1-3) or Fever Albuterol/Ipratropium 3 ml 09/09/25 08:08 Ipratropium 0.5 Mg/Albuterol Sulfate 2.5 Mg (Base) Ampul.Neb 3 Ml INHALATION Q6HRT PRN wheezing Artificial Tears 1 drop 09/09/25 08:06 09/09/25 09:00 Artificial Tears Ophth Soln 15 Ml Bottle EACH EYE 1 drop QID PRN Administration Dry Eye(s) Lidocaine HCl 30 ml/ Al Hydrox 0 ml 08/30/25 17:00 09/03/25 07:00 /Mg Hydrox/Simethicone 30 ml/ PO Not Given Diphenhydramine HCl 75 mg Q4HWA DARIEN On Hold: 09/03/25 07:00 Cyanocobalamin 500 mcg 09/10/25 09:00 09/12/25 07:31 Cyanocobalamin 500 Mcg Tablet PO Not Given DAILY DARIEN Dextrose 12.5 gm 09/12/25 09:35 Dextrose 50% 25 Gm/50 Ml Syringe IV PUSH PRN PRN Hypoglycemia Protocol Fenofibrate 145 mg 09/01/25 09:00 09/12/25 07:29 Fenofibrate 145 Mg Tablet PO Not Given QAM DARIEN Ferrous Sulfate 325 mg 09/10/25 09:00 09/12/25 07:31 Ferrous Sulfate 325 Mg Tablet PO 10/10/25 08:59 Not Given DAILY DARIEN Folic Acid 0.4 mg 09/10/25 09:00 09/12/25 07:31 Folic Acid 0.4 Mg Tablet PO 10/10/25 08:59 Not Given DAILY DARIEN Furosemide 40 mg 09/09/25 09:00 09/12/25 08:52 Furosemide Inj 40 Mg/4 Ml Vial IV PUSH 40 mg DAILY DARIEN Administration Glucagon 1 mg 09/12/25 09:35 Glucagon For Inj 1 Mg Vial IM PRN PRN Hypoglycemia Protocol Glucose 15 gm 09/12/25 09:35 Glucose Oral Gel 15 Gm Of Glucse In 37.5 Gm Tube PO PRN PRN Hypoglycemia Protocol Heparin Sodium (Beef Lung) 50 units 09/03/25 09:00 09/12/25 07:30 Heparin Flush 50 Units/5 Ml Syringe IV PUSH Not Given QAM DARIEN Heparin Sodium (Beef Lung) 50 units 09/03/25 07:03 Heparin Flush 50 Units/5 Ml Syringe IV PUSH PRN PRN after intermittent infusion Heparin Sodium (Beef Lung) 50 units 09/03/25 07:03 09/12/25 05:48 Heparin Flush 50 Units/5 Ml Syringe IV PUSH 50 units PRN PRN Administration after blood draws Heparin Sodium (Porcine) 500 units 09/03/25 07:03 Heparin Sodium Lock Flush 500 Units/5 Ml Syringe IV PUSH PRN PRN see comments below Dextrose 1,000 mls @ 50 mls/hr 09/12/25 09:19 Dextrose 10% IV CONT .Q20H PRN if PN is interrupted Potassium Chloride 40 meq/ 520 mls @ 130 mls/hr 09/12/25 09:45 09/12/25 10:09 Sodium Chloride IVPB 09/12/25 13:44 130 mls/hr ONCE ONE Administration Amino Acids/Electrolytes/Dextrose 1,000 mls @ 80 mls/hr 09/12/25 10:00 09/12/25 11:23 Clinimix E 4.25%/5% Solution IV CONT 80 mls/hr .[id number] DARIEN Administration Protocol Fat Emulsion Intravenous 250 mls @ 20.833 mls/hr 09/12/25 11:00 09/12/25 11:25 Lipids 20% IVPB 20.83 mls/hr Q24H DARIEN Administration Dextrose 1,000 mls @ 100 mls/hr 09/12/25 09:35 Dextrose 5% 1,000 Ml IVPB PRN PRN Hypoglycemia Protocol Insulin Human Regular 0 units 09/12/25 12:00 09/12/25 12:05 Insulin Human Regular (*Bkc) 100 Units/Ml SUB-Q Not Given Q6HR [facility] Protocol Lidocaine HCl 1 applic 08/30/25 20:34 08/31/25 09:34 Lidocaine 4% Soln 50 Ml Btl TOPICAL 1 applic PRN PRN Administration Pain Lidocaine/Prilocaine 1 each 09/09/25 14:12 Lidocaine/Prilocaine Cream 2.5-2.5% Tube TOPICAL DAILY PRN Pain Loratadine 10 mg 08/31/25 21:00 09/12/25 07:29 Loratadine 10 Mg Tablet PO Not Given QAM [facility] Metoprolol Tartrate 25 mg 09/09/25 09:00 09/12/25 07:31 Metoprolol Tartrate 25 Mg Tablet PO Not Given Q12HR [facility] Metoprolol Tartrate 5 mg 09/10/25 18:54 09/11/25 21:28 Metoprolol Tartrate Inj 5 Mg/5 Ml Vial IV PUSH 5 mg Q8HR PRN Administration Heart Rate- High Miconazole Nitrate 1 applic 09/10/25 21:00 09/12/25 11:26 Miconazole Nitrate 2% Cream 30 Gm Tube TOPICAL 10/09/25 16:59 1 applic Q12HR DARIEN Administration Miscellaneous Information 0 each 09/09/25 00:01 09/11/25 05:05 Nonformulary Drug (Mesalamine [Lialda] 1.2 Gram Tablet,Delayed Release (Dr/Ec)) Can Patien XX 10/09/25 00:00 Not Given CLARIFY [facility] Multivitamins Therapeutic 1 tablet 09/10/25 09:00 09/12/25 07:31 Multivitamins Therapeutic Tab (*Bkc) PO Not Given DAILY [facility] Mupirocin 1 applic 09/10/25 21:00 09/12/25 11:41 Mupirocin 2% Oint 22 Gm Tube TOPICAL Not Given Q12HR [facility] Non-Formulary Medication 2.4 gm 09/10/25 09:00 Mesalamine [Lialda] PO 10/10/25 08:59 DAILY [facility] Ondansetron HCl 8 mg 09/09/25 14:12 Ondansetron Hcl Odt 4 Mg Tablet PO Q8-12H PRN nausea and vomiting Prednisone 5 mg 09/09/25 21:00 09/12/25 07:31 Prednisone 5 Mg Tablet PO Not Given Q12HR [facility] Simvastatin 20 mg 09/09/25 21:00 09/11/25 21:25 Simvastatin 20 Mg Tablet PO Not Given HS [facility] Sodium Chloride 10 ml 09/03/25 14:00 09/12/25 08:55 Central Line Flush IV PUSH 10 ml Q8HR [facility] Administration Tamsulosin HCl 0.4 mg 09/01/25 09:00 09/12/25 07:29 Tamsulosin Hcl 0.4 Mg Capsule PO Not Given DAILY [facility] Terbinafine HCl 250 mg 09/10/25 09:00 09/12/25 07:31 Terbinafine Hcl 250 Mg Tablet PO Not Given DAILY [facility] Vitamin D 125 mcg 09/01/25 09:00 09/12/25 07:29 Cholecalciferol (Vitamin D3) 125 Mcg (5,000 Units) Tablet PO Not Given DAILY [facility] Radiology Results: ITS Impressions Head CT 09/03/25 06:23 IMPRESSION: 1. No acute intracranial findings. Head/Neck CTA 09/03/25 06:30 IMPRESSION: CT HEAD: 1. No acute intracranial findings. CTA NECK: 1. Motion artifact along carotid bulbs. Stenosis or even dissection not excluded. Recommend carotid ultrasound. CTA HEAD: 1. No large vessel arterial occlusive disease or other acute findings. 2. No aneurysms. Chest CT 09/03/25 07:26 IMPRESSION: 1. Significant decrease in lung volumes with prominent dependent atelectasis including partial collapse of the bilateral lower lobes. Superimposed pneumonia not excludable. 2. No significant change in small left and moderate-sized right pleural effusions. 3. Moderate amount of ascites in the upper abdomen. 4. Scattered sclerotic bone lesions consistent with known metastatic prostate cancer and with chronic pathologic fracture at T10. Carotid Doppler Study 09/03/25 17:25 IMPRESSION: 1. >=70% (but less than near occlusion) stenosis in the right internal carotid artery. 2. >=70% (but less than near occlusion) stenosis in the left internal carotid artery. 3. The degree of stenosis indicated by the increased velocities is greater than would be expected given the amount of calcified atherosclerotic plaque evident on the prior CT angiogram. This suggests that the lower density linear filling defects at the bilateral carotid bulbs seen on the prior CT angiogram are not artifactual and likely to represent small dissection flaps. Abdomen X-Ray 09/04/25 07:07 IMPRESSION: 1: NG tube tip in the stomach. 2: Bibasilar airspace disease may represent edema or pneumonia. Chest X-Ray 09/09/25 08:06 Impression: Basilar probable pneumonia. The findings appear slightly improved. Modified Barium Swallow 09/10/25 15:04 IMPRESSION: Pharyngeal dysphagia and laryngeal penetration without aspiration. Please correlate with speech pathologist findings and specific feeding recommendations. Labs Labs: Laboratory Results - last 24 hr 09/11/25 09/11/25 09/11/25 16:35 18:29 19:34 WBC 8.3 RBC 3.08 L Hgb 9.4 L Hct 30.1 L MCV 97.7 MCH 30.5 MCHC 31.2 L RDW 19.3 H Plt Count 159 MPV 10.7 H Immature Gran % (Auto) 1.1 H Neut % (Auto) 77.9 H Lymph % (Auto) 10.0 L [place] % (Auto) 10.0 H Eos % (Auto) 0.0 Baso % (Auto) 1.0 Lymph # (Auto) 0.83 L [place] # (Auto) 0.8 H Eos # (Auto) 0.0 Baso # (Auto) 0.1 Abs Immat Gran (auto) 0.09 H Absolute Neuts (auto) 6.4 Absolute Nucleated RBC 0.000 Nucleated RBC % 0.0 APTT 47.5 H Sodium 144 Potassium 2.9 L Chloride 108 H Carbon Dioxide 38 H Anion Gap -2 L BUN 29 H Creatinine 0.56 L Estim Creat Clear Calc 93 Estimated GFR > 60 Glucose 127 H POC Capillary Glucose 113 H 111 H Calcium 7.7 L Phosphorus Magnesium 1.9 Transferrin 101 L Total Bilirubin 1.0 AST 61 H ALT 25 Alkaline Phosphatase 83 Total Protein 4.6 L Albumin 2.6 L Triglycerides 09/12/25 09/12/25 09/12/25 00:10 04:56 05:55 WBC 7.9 RBC 3.21 L Hgb 9.6 L Hct 31.8 L MCV 99.1 MCH 29.9 MCHC 30.2 L RDW 19.0 H Plt Count 160 MPV 10.7 H Immature Gran % (Auto) Neut % (Auto) Lymph % (Auto) [place] % (Auto) Eos % (Auto) Baso % (Auto) Lymph # (Auto) [place] # (Auto) Eos # (Auto) Baso # (Auto) Abs Immat Gran (auto) Absolute Neuts (auto) Absolute Nucleated RBC Nucleated RBC % APTT Sodium 146 H Potassium 2.9 L Chloride 110 H Carbon Dioxide 35 H Anion Gap 1 L BUN 27 H Creatinine 0.50 L Estim Creat Clear Calc 103 Estimated GFR > 60 Glucose 129 H POC Capillary Glucose 116 H 120 H Calcium 7.4 L Phosphorus 2.5 Magnesium Transferrin Total Bilirubin AST ALT Alkaline Phosphatase Total Protein Albumin Triglycerides 09/12/25 09/12/25 09/12/25 07:19 10:14 10:14 WBC 7.2 RBC 3.36 L Hgb 10.3 L Hct 33.0 L MCV 98.2 MCH 30.7 MCHC 31.2 L RDW 19.3 H Plt Count 169 MPV 11.0 H Immature Gran % (Auto) 0.8 H Neut % (Auto) 78.8 H Lymph % (Auto) 9.7 L [place] % (Auto) 9.7 H Eos % (Auto) 0.0 Baso % (Auto) 1.0 Lymph # (Auto) 0.70 L [place] # (Auto) 0.7 H Eos # (Auto) 0.0 Baso # (Auto) 0.1 Abs Immat Gran (auto) 0.06 H Absolute Neuts (auto) 5.7 Absolute Nucleated RBC 0.000 Nucleated RBC % 0.0 APTT 63.9 H Sodium 145 Potassium 2.9 L Chloride 107 Carbon Dioxide 37 H Anion Gap 1 L BUN 25 H Creatinine 0.52 L Estim Creat Clear Calc 99 Estimated GFR > 60 Glucose 132 H POC Capillary Glucose 118 H Calcium 7.7 L Phosphorus Magnesium 2.0 Transferrin 115 L Total Bilirubin 1.1 AST 67 H ALT 26 Alkaline Phosphatase 92 Total Protein 4.9 L Albumin 2.7 L Triglycerides Cancelled 175 H 09/12/25 12:03 WBC RBC Hgb Hct MCV MCH MCHC RDW Plt Count MPV Immature Gran % (Auto) Neut % (Auto) Lymph % (Auto) [place] % (Auto) Eos % (Auto) Baso % (Auto) Lymph # (Auto) [place] # (Auto) Eos # (Auto) Baso # (Auto) Abs Immat Gran (auto) Absolute Neuts (auto) Absolute Nucleated RBC Nucleated RBC % APTT Sodium Potassium Chloride Carbon Dioxide Anion Gap BUN Creatinine Estim Creat Clear Calc Estimated GFR Glucose POC Capillary Glucose 137 H Calcium Phosphorus Magnesium Transferrin Total Bilirubin AST ALT Alkaline Phosphatase Total Protein Albumin Triglycerides
[2025-09-12] MEDS: METOPROLOL TARTRATE INJ 5 MG/5 ML VIAL IV PUSH (21:38)
[2025-09-12] MEDS: IPRATROPIUM 0.5 MG/ALBUTEROL SULFATE 2.5 MG (BASE) AMPUL.NEB 3 ML INHALATION (22:44)
--- NOTE | 2025-09-13 01:59 | PC.NURSE ---
Daylight savings time change
--- NOTE | 2025-09-13 02:19 | PC.NURSE ---
This RN responded to telemetry bradycardia alarm at 0158, pt was found unresponsive with shallow/irregular breathing. Rapid Response called at 0159. Telemetry history analysis shows rhythm changes becoming more irregular from baseline around 0140, pt appears to have experienced several PVCs coinciding with T-waves leading to a complete heart block within 1-2minutes of this RN's arrival to bedside.
--- NOTE | 2025-09-13 02:53 | PC.NURSE ---
Dr. Davis called time of at 0204, Pt son Timmy was called at time of emergent response and spoke with provider at that time. Timmy will notify other family members.
--- NOTE | 2025-09-13 08:28 | P.PNGI_ITS ---
<Statement entered by Johnny Guadarrama MD - 09/13/25 09:20> Patient had cardiac arrest and last night. Progress Note: A&P Assessment and Plan (1) Oropharyngeal dysphagia: Code(s): R13.12 - Dysphagia, oropharyngeal phase Status: Acute Assessment and Plan: Patient with oropharyngeal dysphagia secondary to frailty and metastatic cancer. Scheduled for PEG placement tomorrow. Subjective Date/time seen: 09/13/25 08:28 Objective Data Vital Signs Vital Signs: Vital Signs - 24 hr 09/12/25 12:00 09/12/25 15:58 09/12/25 16:00 Temperature 97.4 F L Pulse Rate 100 107 H 106 H Respiratory Rate 10 L Blood Pressure 114/59 L Pulse Oximetry 88 L Oxygen Delivery 09/12/25 16:01 09/12/25 19:33 09/12/25 20:00 Temperature 98.0 F Pulse Rate 107 H 108 H Respiratory Rate 16 Blood Pressure 120/63 Pulse Oximetry 95 93 Oxygen Delivery 09/12/25 20:00 09/12/25 21:38 09/12/25 22:51 Temperature Pulse Rate 123 H 104 H Respiratory Rate 16 Blood Pressure Pulse Oximetry Oxygen Delivery Room Air Intake/Output Intake/Output: Intake & Output 09/10/25 09/11/25 09/12/25 09/13/25 23:59 23:59 23:59 22:59 Intake Total 150 0 2227.3 272 Output Total 125 1250 2075 Balance 25 -1250 152.3 272 Meds/Results Radiology Results: ITS Impressions Head CT 09/03/25 06:23 IMPRESSION: 1. No acute intracranial findings. Head/Neck CTA 09/03/25 06:30 IMPRESSION: CT HEAD: 1. No acute intracranial findings. CTA NECK: 1. Motion artifact along carotid bulbs. Stenosis or even dissection not excluded. Recommend carotid ultrasound. CTA HEAD: 1. No large vessel arterial occlusive disease or other acute findings. 2. No aneurysms. Chest CT 09/03/25 07:26 IMPRESSION: 1. Significant decrease in lung volumes with prominent dependent atelectasis including partial collapse of the bilateral lower lobes. Superimposed pneumonia not excludable. 2. No significant change in small left and moderate-sized right pleural effusions. 3. Moderate amount of ascites in the upper abdomen. 4. Scattered sclerotic bone lesions consistent with known metastatic prostate cancer and with chronic pathologic fracture at T10. Carotid Doppler Study 09/03/25 17:25 IMPRESSION: 1. >=70% (but less than near occlusion) stenosis in the right internal carotid artery. 2. >=70% (but less than near occlusion) stenosis in the left internal carotid artery. 3. The degree of stenosis indicated by the increased velocities is greater than would be expected given the amount of calcified atherosclerotic plaque evident on the prior CT angiogram. This suggests that the lower density linear filling defects at the bilateral carotid bulbs seen on the prior CT angiogram are not artifactual and likely to represent small dissection flaps. Abdomen X-Ray 09/04/25 07:07 IMPRESSION: 1: NG tube tip in the stomach. 2: Bibasilar airspace disease may represent edema or pneumonia. Chest X-Ray 09/09/25 08:06 Impression: Basilar probable pneumonia. The findings appear slightly improved. Modified Barium Swallow 09/10/25 15:04 IMPRESSION: Pharyngeal dysphagia and laryngeal penetration without aspiration. Please correlate with speech pathologist findings and specific feeding recommendations. Labs Labs: Laboratory Results - last 24 hr 09/12/25 09/12/25 09/12/25 10:14 10:14 12:03 WBC 7.2 RBC 3.36 L Hgb 10.3 L Hct 33.0 L MCV 98.2 MCH 30.7 MCHC 31.2 L RDW 19.3 H Plt Count 169 MPV 11.0 H Immature Gran % (Auto) 0.8 H Neut % (Auto) 78.8 H Lymph % (Auto) 9.7 L [place] % (Auto) 9.7 H Eos % (Auto) 0.0 Baso % (Auto) 1.0 Lymph # (Auto) 0.70 L [place] # (Auto) 0.7 H Eos # (Auto) 0.0 Baso # (Auto) 0.1 Abs Immat Gran (auto) 0.06 H Absolute Neuts (auto) 5.7 Absolute Nucleated RBC 0.000 Nucleated RBC % 0.0 APTT 63.9 H Sodium 145 Potassium 2.9 L Chloride 107 Carbon Dioxide 37 H Anion Gap 1 L BUN 25 H Creatinine 0.52 L Estim Creat Clear Calc 99 Estimated GFR > 60 Glucose 132 H POC Capillary Glucose 137 H Calcium 7.7 L Magnesium 2.0 Transferrin 115 L Total Bilirubin 1.1 AST 67 H ALT 26 Alkaline Phosphatase 92 Total Protein 4.9 L Albumin 2.7 L Triglycerides Cancelled 175 H 09/12/25 09/12/25 17:43 23:11 WBC RBC Hgb Hct MCV MCH MCHC RDW Plt Count MPV Immature Gran % (Auto) Neut % (Auto) Lymph % (Auto) [place] % (Auto) Eos % (Auto) Baso % (Auto) Lymph # (Auto) [place] # (Auto) Eos # (Auto) Baso # (Auto) Abs Immat Gran (auto) Absolute Neuts (auto) Absolute Nucleated RBC Nucleated RBC % APTT Sodium Potassium Chloride Carbon Dioxide Anion Gap BUN Creatinine Estim Creat Clear Calc Estimated GFR Glucose POC Capillary Glucose 124 H 134 H Calcium Magnesium Transferrin Total Bilirubin AST ALT Alkaline Phosphatase Total Protein Albumin Triglycerides
--- NOTE | 2025-09-13 10:45 | P.DN_ITS ---
Discharge Summary Date and Time Date of : 09/13/25 Time of : 02:04 Provider Pronounced By: Provider Name of Provider That Pronounced: Darvin Davis Probable Cause of Probable Cause of : Pneumonia Metastatic prostate cancer Summary Hospital Course: 75 years old male with history of metastatic prostate cancer was admitted for pneumonia and respiratory failure. Patient was treated with antibiotics. Infectious disease doctor and security sales manager were consulted. Patient was also unable to swallow. TPN was given to support nutrition. Patient did not recover and on 09/13 25. Family notified. Additional Data Confirmation of as documented by pronouncing clinician: Pupillary Reflex, Palpable Pulses, Response to Stimuli, Heart Tones and Breath Sounds Name of Provider Notified: Darvin Davis Time Provider Notified: 02:04 Provider Requests Autopsy: No Horticulturalist Notified: Yes Date [facility] Notified of : 09/13/25 Time [facility] Notified of : 02:27
== END 2025-09-13 04:28 | disposition expired | DRG 207 ==
LOC: ANHED 09:57 → ANHIMU 13:16 → ANH3MEDSUR 09-01 17:40 → ANHIMU 09-03 01:49 → ANHICU 09-03 03:50 → ANHIMU 09-09 12:01 → ANH2MED 09-10 18:55
PROVIDERS: Family Medicine; General Practice; Internal Medicine; Internal Medicine Critical Care Medicine; Internal Medicine Hematology & Oncology; Internal Medicine Infectious Disease; Admitting Provider Internal Medicine; Emergency Provider Emergency Medicine; PCP Family Medicine; Visit Provider Internal Medicine
PROC: 0BJ08ZZ Inspection of Tracheobronchial Tree, Via Natural or Artificial Opening Endoscopic (ICD-10-PCS; CPT 31622; principal; 2025-09-04 09:00)
DX: J18.9 Pneumonia, unspecified organism (principal); D61.810 Antineoplastic chemotherapy induced pancytopenia; A41.9 Sepsis, unspecified organism; R65.21 Severe sepsis with septic shock; J96.01 Acute respiratory failure with hypoxia; G93.41 Metabolic encephalopathy; E44.0 Moderate protein-calorie malnutrition; J44.0 Chronic obstructive pulmonary disease with (acute) lower respiratory infection; C79.51 Secondary malignant neoplasm of bone; L03.211 Cellulitis of face; D68.9 Coagulation defect, unspecified; C34.90 Malignant neoplasm of unspecified part of unspecified bronchus or lung; C79.82 Secondary malignant neoplasm of genital organs; B37.49 Other urogenital candidiasis; R50.81 Fever presenting with conditions classified elsewhere; I46.9 Cardiac arrest, cause unspecified; R13.12 Dysphagia, oropharyngeal phase; T45.1X5A Adverse effect of antineoplastic and immunosuppressive drugs, initial encounter; D70.9 Neutropenia, unspecified; K12.1 Other forms of stomatitis; R62.7 Adult failure to thrive; B37.42 Candidal balanitis; I25.10 Atherosclerotic heart disease of native coronary artery without angina pectoris; K12.30 Oral mucositis (ulcerative), unspecified; Z95.1 Presence of aortocoronary bypass graft; Z85.118 Personal history of other malignant neoplasm of bronchus and lung; Z87.891 Personal history of nicotine dependence; Z68.24 Body mass index [BMI] 24.0-24.9, adult; Z66 Do not resuscitate
CPT/HCPCS: 31500; 36415; 36430; 36600; 70450; 70496; 70498; 71045; 71046; 71250; 71260; 74230; 80048; 80053; 80202; 81001; 82042; 82140; 82375; 82607; 82728; 82746; 82805; 82948; 83050; 83540; 83550; 83605; 83615; 83735; 83880; 84100; 84153; 84157; 84443; 84466; 84478; 84484; 85018; 85025; 85027; 85055; 85380; 85384; 85610; 85730; 85999; 86140; 86850; 86900; 86901; 86923; 87040; 87070; 87206; 87252; 87486; 87594; 87637; 87641; 88108; 88305; 88342; 89051; 92526; 92610; 92611; 93005; 93306; 93880; 94002; 94003; 94640; 94660; 96361; 96365; 96375; 97110; 97162; 97166; 97530; 97535; 99285; A9270; G0378; J0456; J0613; J0616; J0692; J1450; J1642; J1741; J1938; J2003; J2004; J2185; J2248; J2250; J2371; J2405; J2470; J2919; J3010; J3373; J3475; J3480; J7030; J7040; J7042; J7050; J7120; J7512; P9016; P9045; P9047; Q5101; Q9967